=== PATIENT | male | born 1940 | race American Indian/Alaskan Native ===

== ENCOUNTER 2019-08-23 09:45 | Observation (INO) | payer MEDICARE, OTHER ==
[~2019-08-23] VITALS: Ht 170.2 cm; Wt 73.5 kg
--- OUTSIDE RECORDS SUMMARY | ~2019-08-23 | XMS | Clinical Summary ---
Demographics + + + | Address | [address] | | | [place] [address] | + + + | Home Phone [...] + | Author | [facility] | | | and [place] | + + + | Organization | [facility] | | | and [...] Team Providers + +------+ + | Care Promotions Executive Producer Name | Role | Phone | + [...] | 08/0 | | Activ | | (PRINIVIL, ZESTRIL) | daily. | | | 8/20 | | e | | 10 mg tablet | | | | 19 | | | + + + +---------+------+------+-------+ | aspirin 325 mg | Take 325 mg by mouth | | 0 | 08/0 | | Activ | | tablet | daily with | | | 8/20 | | e | | | breakfast. | | | 19 | | | + + + +---------+------+------+-------+ | atorvaSTATin | Take 10 mg by mouth | | 0 | 08/0 | | Activ | | (LIPITOR) 10 mg | nightly. | | | 05/23 | | e | | tablet | | | | 19 | | | + + + +---------+------+------+-------+ | loperamide | Take 2 mg by mouth 4 | | 0 | | | Activ | | (IMODIUM) 2 mg | times daily as | | | | | e | | capsule | needed for Diarrhea. | | | | | | | | Take two capsules | | | | | | | | by mouth at the | | | | | | | | onset, then take one | | | | | | | | capsule as | | | | | | | | directed. | | | | | | + + + +---------+------+------+-------+ Active Problems + + + | Problem | Noted Date | + + + | Chest pressure | 07/10/2019 | + + + | Tobacco abuse | | + + + | Hypertension | | + + + | Hyperlipidemia | | + + + Encounters +--------+---------+ + + + | Date | Type | Specialty | Care Team | Description | +--------+---------+ + + + | 07/10/ | Office | Cardiology | JenniferalessandraNaina garcia | Essential | | 2019 | Visit | | GRIFFIN Strickland | hypertension | | | | | | (Primary Dx); Chest | | | | | | pressure; Mixed | | | | | | hyperlipidemia; | | | | | | Tobacco abuse | +--------+---------+ + + + from Last 3 Months Family History + + +------+ + | Medical History | Relation | Name | Comments | + + +------+ + | Alzheimer's disease | Brother | | | + + +------+ + | Cancer | Brother | | | + + +------+ + | Seizures [...] + +------+ + + Social History + +-------+ +--------+------+ [...] to Quit: No; Counseling Given: Yes | + + + + +---------+ + [...] + + + | Blood Pressure | 112/56 | 07/10/2019 1:56 PM | | | | | PDT | | + + + + + | Pulse | 72 | 07/10/2019 1:56 PM | | | | | PDT | | + + + + + | Temperature | - | - | | + + + + + | Respiratory Rate | - | - | | + + + + + | Oxygen Saturation | 98% | 07/10/2019 1:56 PM | | | | | PDT | | + + + + + | Inhaled Oxygen | - | - | | | Concentration | | | | + + + + + | Weight | 83.5 kg (184 lb 1.6 | 07/10/2019 1:56 PM | | | | oz) | PDT | | + + + + + | Height | 170.2 cm (5' 7") | 07/10/2019 1:56 PM | | | | | PDT | | + + + + + | Body Mass Index | 28.83 | 07/10/2019 1:56 PM | | | | | PDT | | + + + + + Plan of Treatment + + + + + | Health Maintenance | Due Date | Last Done | Comments | + + + + + | Vaccine: | | | | | Dtap/Tdap/Td (1 - | 9 | | | | Tdap) | | [...] | | + + + + + Results Not on filefrom Last 3 Months Insurance + +--------+ +--------+ +---------+--------+ | Payer | Benefi | Subscriber | Effect | Phone | Address | Type | | | t Plan | ID | bree | | | | | | / | | Dates | | | | | | Group | | | | | | + +--------+ +--------+ +---------+--------+ | MEDICARE | MEDICA | [id number] | 04/03/20 | [phone] | | Medica | | | RE | | 14-Pre | 5 | | re | | | PART A | | sent | | | | | | AND B | | | | | | + +--------+ +--------+ +---------+--------+ | [employer] | IHS | | Effect | | | Indemn | | SERVICE | YELLOW | | bree | | | ity | | | [place]WK | | for | | | | | | | | all | | | | | | | | dates | | | | + +--------+ +--------+ +---------+--------+ | [employer] | IHS | [id number] | 10/04/19 | | | Indemn | | SERVICE | YELLOW | | 19-Pre | | | ity | | | HAWK | | sent | | | | + +--------+ +--------+ +---------+--------+ | MEDICARE | MEDICA | [id number] | 04/03/20 | [phone] | | Medica [...] | + +--------+ +--------+ + + | Kris Delgado | Person | Self | [birth year] | | [address] | | | al/Fam | | 1941 | [phone] | [place] [address] | | | [place] | | | 9 (Home) | | + +--------+ +--------+ + + | Kris Delgado | Person | Self | [birth year] | | [address] | | | al/Fam | | 1941 | [phone] | [place] [address] | | | [place] | | | 9 (Home) | | + +--------+ +--------+ + + Advance Directives + + + + + | Type | Date Recorded | Patient | Explanation | | | | Pickling Operator | | + + + + + | Power of | | | | | Malt House Kiln Operator | | | | + + + + + | Advance | | | | | Directive | | | | + + + + +
--- OUTSIDE RECORDS SUMMARY | ~2019-08-23 | XMS | Encounter Summary ---
Demographics + + + | Address | [address] | | | [place] [address] | + + + | Home Phone | | + + + | Preferred Language | Unknown | + + + | Marital Status | | + + + | Nondenominational Affiliation | Unknown | + + + | Race | Unknown | + + + | Ethnic Group | Unknown | + + + Author + + + | Author | [facility] | | | and [place] | + + + | Organization | [facility] | | | [...] Providers + +------+ + | Care Business Office Associate Name | Role | Phone | + [...] | Transaction, | | | | | [address] | Provider Unknown | | | | | [place] | [phone] | | | | | [phone] | (Fax) | | | | | [phone] | | | +--------+ + + + [...]
--- OUTSIDE RECORDS SUMMARY | ~2019-08-23 | XMS | Encounter Summary ---
Demographics + + + | Address | [address] | | | [place] [address] | + + + | Home Phone | | + + + | Preferred Language | Unknown | + + + | Marital Status | | + + + | Zoroastrianism Affiliation | Unknown | + + + | Race | Unknown | + + + | Ethnic Group | Unknown | + + + Author + + + | Author | [facility] | | | and [place] | + + + | Organization | [facility] | | | and [...] Team Providers + +------+ + | Care Mainframe Consultant Name | Role | Phone | [...] [place] | | | | | | [address] | | | | | | [phone] | | | +--------+ + + + [...] 0.67 m/s MV | | | Dec Mcclain: 1.81 m/s2 MV DecT: 317.65 ms MV E Emanuel: 0.57 m/s | | | MV E/A Ratio: 0.85 E/E' Sept: 11.69 E' Lat: 0.08 m/s E' | | | Sept: 0.04 m/s RAP: 5 mmHg RV S': 0.12 m/s RVSP: 25.91 | | | mmHg TR maxP.91 mmHg TR Vmax: 2.28 m/s Mixer Wet Pour: | | | Authenticated by: Cici Abraham [...] mlLAESV Index (A-L): 24.25 ml/m2LAAs A2C: 14.49 [id number] A-L A2C: 33.91 | | mlLAESV MOD A2C: 32.12 mlLALs A2C: 5.25 cmLAAs A4C: 19.79 [id number] A-L A4C: | | 58.12 mlLAESV MOD A4C: 57.48 mlLALs A4C: 5.72 cmRAAs: 18.17 [id number] A-L: 49.96 | | mlRAESV MOD: 49.15 mlRALs: 5.60 cmTAPSE: 2.19 cmAV Env.Ti: 293.90 msAV maxPG: | | 4.91 mmHgAV meanP.41 mmHgAV Vmax: 1.10 m/Milton Vmean: 0.72 m/Milton VTI: 21.23 | | cmAVA Vmax: 3.17 cm2AVA (VTI): 3.89 [id number] Vmax: 0.00 cm2/m2AVAI (VTI): 0.00 | | cm2/m2LVOT Env.Ti: 360.44 msLVOT maxP.14 mmHgLVOT meanP.50 mmHgLVSI Dopp: | | 43.29 ml/m2LVSV Dopp: 82.69 mlLVOT Vmax: 0.88 m/sLVOT Vmean: 0.57 m/sLVOT VTI: | | 20.85 cmMV A Emanuel: 0.67 m/sMV Dec Mcclain: 1.81 m/s2MV DecT: 317.65 msMV E Emanuel: | | 0.57 m/sMV E/A Ratio: 0.85E/E' Sept: 11.69E' Lat: 0.08 m/sE' Sept: 0.04 m/sRAP: | | 5 mmHgRV S': 0.12 m/sRVSP: 25.91 mmHgTR maxP.91 mmHgTR Vmax: 2.28 m/s | | Mixer Wet Pour:Authenticated by: Cici Robles Date/Time: 02-21-2019 19:5:14 | [...] A Emanuel: 0.67 m/s | |MV Dec Mcclain: 1.81 m/s2 | |MV DecT: 317.65 ms | |MV E Emanuel: 0.57 m/s | |MV E/A Ratio: 0.85 | |E/E' Sept: 11.69 | |E' Lat: 0.08 m/s | |E' Sept: 0.04 m/s | |RAP: 5 mmHg | |RV S': 0.12 m/s | |RVSP: 25.91 mmHg | |TR maxP.91 mmHg | |TR Vmax: 2.28 m/s | | | |Mixer Wet Pour: | |Authenticated by: Cici Abraham | |Report [...]
--- OUTSIDE RECORDS SUMMARY | ~2019-08-23 | XMS | Clinical Summary ---
Demographics + + + | Address | [address] | | | [place] [address] | + + + | Home Phone | | + + + | Preferred Language | Unknown | + + + | Marital Status | Unknown | + + + | Mormon Affiliation | Unknown | + + + | Race | Unknown | + + + | Ethnic Group | Unknown | + + + Author + + + | Author | [facility] [employer] (Historical as of | | | 05-20-19) | + + + | Organization | [facility] [employer] (Historical as of | | | 05-20-19) [...] Team Providers + +------+ + | Care Medical Claims Manager Name | Role | Phone | [...] | | + +--------+ +------+-------+ + | /[facility] | YELLOW | [id number] | | | | | PLANS | [place]WK | | | | | + +--------+ +------+-------+ + | MEDICARE | MEDICA | [id number] | | | [address] | | | RE | | | | [place] [address] | | | IP-OP | | | [...] | Self | [birth year] | Home: | [address] | | | al/Fam | | 1941 | [phone] | [place] [address] | | | [place] | | [phone] | | + +--------+ +--------+ + +
--- OUTSIDE RECORDS SUMMARY | ~2019-08-23 | XMS | Encounter Summary ---
Demographics + + + | Address | [address] | | | [place] [address] | + + + | Home Phone | | + + + | Preferred Language | Unknown | + + + | Marital Status | | + + + | Sikh Affiliation | Unknown | + + + | Race | Unknown | + + + | Ethnic Group | Unknown | + + + Author + + + | Author | [facility] | | | and [place] | + + + | Organization | [facility] | | [...] Team Providers + +------+ + | Care Appeals Referee Name | Role | Phone | + [...] | | | | DARREN MCKEON | [phone] | | | | | [phone] | (Fax) | | | | | [phone] | | | +--------+ + + + [...]
--- OUTSIDE RECORDS SUMMARY | ~2019-08-23 | XMS | Clinical Summary ---
Demographics + + + | Address | [address] | | | [place] [address] | + + + | Home Phone | | + + + | Preferred Language | Unknown | + + + | Marital Status | | + + + | Yazdanism Affiliation | Unknown | + + + | Race | Unknown | + + + | Ethnic Group | Unknown | + + + Author + + + | Author | [facility] | | | and [place] | + + + | Organization | [facility] | [...] Team Providers + +------+ + | Care Manager Group Home Name | Role | Phone | + [...] +--------+ +---------+--------+ | MEDICARE | MEDICA | [id number] | 04/03/20 | [phone] | | Medica | | | RE | | 14-Pre | 5 | | re | | | PART A | | sent | | | | | | AND B | | | | | | + +--------+ +--------+ +---------+--------+ | [employer] | IHS | | Effect | | | Indemn | | SERVICE | YELLOW | | bree | | | ity | | | [place]WK | | for | | | | | | | | all | | | | | | | | dates | | | | + +--------+ +--------+ +---------+--------+ | [employer] | IHS | [id number] | 10/04/19 | | | Indemn | | SERVICE | YELLOW | | 19-Pre | | | ity | | | HAWK | | sent | | | | + +--------+ +--------+ +---------+--------+ | MEDICARE | MEDICA | [id number] | 04/03/20 | [phone] | | Medica [...] Person | Self | [birth year] | | [address] | | | al/Fam | | 1941 | [phone] | [place] [address] | | | [place] | | | 9 (Home) | | + +--------+ +--------+ + + | Kris Delgado | Person | Self | [birth year] | | [address] | | | al/Fam | | 1941 | [phone] | [place] [address] | | | [place] | | | 9 (Home) | | + +--------+ +--------+ + + Advance Directives + + + + + | Type | Date Recorded | Patient | Explanation | | | | Drawer In Jacquard Loom | | + + + + + | Power of | | | | | Ceramic Worker | | | | + + + + + | Advance | | | | | Directive | | | | + + + + +
--- OUTSIDE RECORDS SUMMARY | ~2019-08-23 | XMS | Encounter Summary ---
Demographics + + + | Address | [address] | | | [place] [address] | + + + | Home Phone | | + + + | Preferred Language | Unknown | + + + | Marital Status | | + + + | Hinduism Affiliation | Unknown | + + + | Race | Unknown | + + + | Ethnic Group | Unknown | + + + Author + + + | Author | [facility] | | | and [place] | + + + | Organization | [facility] | | | [...] Team Providers + +------+ + | Care Dance Costume Designer Name | Role | Phone | [...] | / Cardiology | done sah | [address] | CONSULTING APPLICATION ENGINEER [address] | | | | | Procedures | CONF[address]ERATED | LISETH COLV[address] | | | | | OFFICE VISIT | WAY | [address] | | | | | REGULAR | [place], | [place], [place] | | | | | | [place] [address] | [address] Phone: | | | | | | Phone: | [phone] | | | | | | [phone] | Fax: | | | | | | Fax: | [phone] | | | | | | [phone] | | +--------+--------+ + + + + Encounter Details +--------+---------+ + + + | Date | Type | Department | Care Team | Description | +--------+---------+ + + + | 07/10/ | Office | [facility] | Naina Judd | Essential | | 2019 | Visit | CARDIOLOGY [place] | GRIFFIN Strickland [address] | hypertension | | | | [address] | [address] | (Primary Dx); Chest | | | | [address] | [place] [address] | pressure; Mixed | | | | [place], [place] | [phone] | hyperlipidemia; | | | | [address] | | Tobacco abuse | | | | [phone] | | | +--------+---------+ + + + [...] 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 He previously had a normal echo performed at [facility] Dr. Barahona ordered him a [...] use. Exercises with and tolerates. Lives in [place] [facility] Medications Prior to Visit Medication Sig [...] with PAC's. low voltage QRS 71 bpm, ID 122 ms, Q RS 74 ms, QTC 417 ms, tracing personally reviewed by me EK05/11/2019:Normal sinus rhythm, rate 71, ID 118 ms, QRS 68 ms, QTC 399, borderline carolynn rt ID interval, LAE, cannot exclude old inferior IN, age undetermined, low voltage QRS , tr [...] to quit smoking, drink no more t agrcia 2 alcoholic drinks at one time , and to work on keeping blood pressure, and lipids well controlled, and to stay current on flu and pneumonia vaccines, as also increase risk of IN I made no changes to cardiac medications [...] surgical history. Problem list. Erika WALKER [facility] Cardiology 07/10/2019 docume nted in this encounter [...]
--- OUTSIDE RECORDS SUMMARY | ~2019-08-23 | XMS | Encounter Summary ---
Demographics + + + | Address | [address] | | | [place] [address] | + + + | Home Phone [...] Team Providers + +------+ + | Care Innersole Maker Name | Role | Phone | [...] | / Cardiology | done sah | [address] | HEALTH OFFICER [address] | | | | | Procedures | CONFEDERATED | LISETH COLVIN | | | | | OFFICE VISIT | WAY | [address] | | | | | REGULAR | [place], | [place], [place] | | | | | | [place] [address] | [address] Phone: | | | | | | Phone: | [phone] | | | | | | [phone] | Fax: | | | | | | Fax: | [phone] | | | | | | [phone] | | +--------+--------+ + + + + Encounter Details +--------+---------+ + + + | Date | Type | Department | Care Team | Description | +--------+---------+ + + + | 07/10/ | Office | [facility] | Naina Judd | Essential | | 2019 | Visit | CARDIOLOGY [place] | [address]FF[address] | hypertension | | | | [address] | [address] | (Primary Dx); Chest | | | | [address] | [place] [address] | pressure; Mixed | | | | [place], [place] | [phone] | hyperlipidemia; | | | | [address] | | Tobacco abuse | | | | [phone] | | | +--------+---------+ + + + [...] and his EKG showing an old inferior HI. He previously had a normal echo performed at [facility] Dr. Barahona ordered him a stress [...] use. Exercises with and tolerates. Lives in [place] [facility] Medications Prior to Visit Medication Sig [...] with PAC's. low voltage QRS 71 bpm, OH 122 ms, Q RS 74 ms, QTC 417 ms, tracing personally reviewed by me EK05/11/2019:Normal sinus rhythm, rate 71, OH 118 ms, QRS 68 ms, QTC 399, borderline carolynn rt OH interval, LAE, cannot exclude old inferior HI, age undetermined, low voltage QRS , tr [...] pneumonia vaccines, as also increase risk of HI I made no changes to cardiac medications [...] past surgical history. Problem list. Erika WALKER [facility] Cardiology 07/10/2019 docume nted in this encounter [...]
--- OUTSIDE RECORDS SUMMARY | ~2019-08-23 | XMS | Encounter Summary ---
Demographics + + + | Address | [address] | | | [place] [address] | + + + | Home Phone | | + + + | Preferred Language | Unknown | + + + | Marital Status | | + + + | Protestant Affiliation | Unknown | + + + | Race | Unknown | + + + | Ethnic Group | Unknown | + + + Author + + + | Author | [facility] | | | and [place] | + + + | Organization | [facility] | | [...] Team Providers + +------+ + | Care Abe Teacher Name | Role | Phone | [...] | | | | DARR[place] MCKE[place] | [phone] | | | | | [address] | (Fax) | | | | | [phone] | | | +--------+ + + + [...]
--- OUTSIDE RECORDS SUMMARY | ~2019-08-23 | XMS | Clinical Summary ---
Demographics + + + | Address | [address] | | | [place] [address] | + + + | Home Phone | | + + + | Preferred Language | Unknown | + + + | Marital Status | Unknown | + + + | Nondenominational Affiliation | Unknown | + + + | Race | Unknown | + + + | Ethnic Group | Unknown | + + + Author + + + | Author | [facility] (Historical as of | | | 05-20-19) | + + + | Organization | [facility] (Historical as of | | | 05-20-19) [...] Team Providers + +------+ + | Care Transportation Escort Name | Role | Phone | + [...] | | + +--------+ +------+-------+ + | /[facility] | YELLOW | [id number] | | | | | PLANS | [place] | | | | | + +--------+ +------+-------+ + | MEDICARE | MEDICA | [id number] | | | [address] | | | RE | | | | [place] [address] | | | IP-OP | | | [...] | Self | [birth year] | Home: | [address] | | | al/Fam | | 1941 | [phone] | [place] [address] | | | [place] | | | [phone] | | + +--------+ +--------+ + +
--- OUTSIDE RECORDS SUMMARY | ~2019-08-23 | XMS | Encounter Summary ---
Demographics + + + | Address | [address] | | | [place] [address] | + + + | Home Phone [...] Team Providers + +------+ + | Care Ventilated Rib Fitter Name | Role | Phone | + [...] [place] | | | | | | [address] | | | | | | [phone] | | | +--------+ + + + [...] 0.67 m/s MV | | | Dec Roseau: 1.81 m/s2 MV DecT: 317.65 ms MV E Emanuel: 0.57 m/s | | | MV E/A Ratio: 0.85 E/E' Sept: 11.69 E' Lat: 0.08 m/s E' | | | Sept: 0.04 m/s RAP: 5 mmHg RV S': 0.12 m/s RVSP: 25.91 | | | mmHg TR maxP.91 mmHg TR Vmax: 2.28 m/s Lock Setter: | | | Authenticated by: Ccii Abraham Report Date/Time: 02-21-2019 19:5:14 | | [...] mlLAESV Index (A-L): 24.25 ml/m2LAAs A2C: 14.49 [id number] A-L A2C: 33.91 | | mlLAESV MOD A2C: 32.12 mlLALs A2C: 5.25 cmLAAs A4C: 19.79 [id number] A-L A4C: | | 58.12 mlLAESV MOD A4C: 57.48 mlLALs A4C: 5.72 cmRAAs: 18.17 [id number] A-L: 49.96 | | mlRAESV MOD: 49.15 mlRALs: 5.60 cmTAPSE: 2.19 cmAV Env.Ti: 293.90 msAV maxPG: | | 4.91 mmHgAV meanP.41 mmHgAV Vmax: 1.10 m/Milton Vmean: 0.72 m/Milton VTI: 21.23 | | cmAVA Vmax: 3.17 cm2AVA (VTI): 3.89 [id number] Vmax: 0.00 cm2/m2AVAI (VTI): 0.00 | | cm2/m2LVOT Env.Ti: 360.44 msLVOT maxP.14 mmHgLVOT meanP.50 mmHgLVSI Dopp: | | 43.29 ml/m2LVSV Dopp: 82.69 mlLVOT Vmax: 0.88 m/sLVOT Vmean: 0.57 m/sLVOT VTI: | | 20.85 cmMV A Emanuel: 0.67 m/sMV Dec Roseau: 1.81 m/s2MV DecT: 317.65 msMV E Emaneul: | | 0.57 m/sMV E/A Ratio: 0.85E/E' Sept: 11.69E' Lat: 0.08 m/sE' Sept: 0.04 m/sRAP: | | 5 mmHgRV S': 0.12 m/sRVSP: 25.91 mmHgTR maxP.91 mmHgTR Vmax: 2.28 m/s | | Lock Setter:Authenticated by: Cici Robles Date/Time: 02-21-2019 19:5:14 | [...] A Emanuel: 0.67 m/s | |MV Dec [place]: 1.81 m/s2 | |MV DecT: 317.65 ms | |MV E Emanuel: 0.57 m/s | |MV E/A Ratio: 0.85 | |E/E' Sept: 11.69 | |E' Lat: 0.08 m/s | |E' Sept: 0.04 m/s | |RAP: 5 mmHg | |RV S': 0.12 m/s | |RVSP: 25.91 mmHg | |TR maxP.91 mmHg | |TR Vmax: 2.28 m/s | | | |Lock Setter: | |Authenticated by: Cici Abraham | |Report [...]
--- OUTSIDE RECORDS SUMMARY | ~2019-08-23 | XMS | Clinical Summary ---
Demographics + + + | Address | [address] | | | [place] [address] | + + + | Home Phone [...] + + | Author | [facility] (Historical as of | | | 05-20-19) | + + + | Organization | [facility] (Historical as of | | | 05-20-19) [...] Team Providers + +------+ + | Care Jboss Architect Name | Role | Phone | [...] | | + +--------+ +------+-------+ + | /[facility] | YELLOW | [id number] | | | | | PLANS | [place] | | | | | + +--------+ +------+-------+ + | MEDICARE | MEDICA | [id number] | | | [address] | | | RE | | | | [place] [phone] | | | IP-OP | | | [...] | Self [birth year] | Home: | [address] | | | al/Fam | | 1941 | [phone] [place] [address] | | | [place] | | | [phone] | | + +--------+ +--------+ + +
--- OUTSIDE RECORDS SUMMARY | ~2019-08-23 | XMS | Encounter Summary ---
Demographics + + + | Address | [address] | | | [place] [address] | + + + | Home Phone | | + + + | Preferred Language | Unknown | + + + | Marital Status | | + + + | Advent Affiliation | Unknown | + + + [...] Team Providers + +------+ + | Care Cuff Presser Name | Role | Phone | + [...] [place] | | | | | | [address] | | | | | | [phone] | | | +--------+ + + + [...] 0.67 m/s MV | | | Dec Mccone: 1.81 m/s2 MV DecT: 317.65 ms MV E Emanuel: 0.57 m/s | | | MV E/A Ratio: 0.85 E/E' Sept: 11.69 E' Lat: 0.08 m/s E' | | | Sept: 0.04 m/s RAP: 5 mmHg RV S': 0.12 m/s RVSP: 25.91 | | | mmHg TR maxP.91 mmHg TR Vmax: 2.28 m/s Steam Turbine Assembler: | | | Authenticated by: Cici Abraham [...] mlLAESV Index (A-L): 24.25 ml/m2LAAs A2C: 14.49 [id number] A-L A2C: 33.91 | | mlLAESV MOD A2C: 32.12 mlLALs A2C: 5.25 cmLAAs A4C: 19.79 [id number] A-L A4C: | | 58.12 mlLAESV MOD A4C: 57.48 mlLALs A4C: 5.72 cmRAAs: 18.17 [id number] A-L: 49.96 | | mlRAESV MOD: 49.15 mlRALs: 5.60 cmTAPSE: 2.19 cmAV Env.Ti: 293.90 msAV maxPG: | | 4.91 mmHgAV meanP.41 mmHgAV Vmax: 1.10 m/Milton Vmean: 0.72 m/Milton VTI: 21.23 | | cmAVA Vmax: 3.17 cm2AVA (VTI): 3.89 [id number] Vmax: 0.00 cm2/m2AVAI (VTI): 0.00 | | cm2/m2LVOT Env.Ti: 360.44 msLVOT maxP.14 mmHgLVOT meanP.50 mmHgLVSI Dopp: | | 43.29 ml/m2LVSV Dopp: 82.69 mlLVOT Vmax: 0.88 m/sLVOT Vmean: 0.57 m/sLVOT VTI: | | 20.85 cmMV A Emanuel: 0.67 m/sMV Dec Mccone: 1.81 m/s2MV DecT: 317.65 msMV E Emanuel: | | 0.57 m/sMV E/A Ratio: 0.85E/E' Sept: 11.69E' Lat: 0.08 m/sE' Sept: 0.04 m/sRAP: | | 5 mmHgRV S': 0.12 m/sRVSP: 25.91 mmHgTR maxP.91 mmHgTR Vmax: 2.28 m/s | | Steam Turbine Assembler:Authenticated by: Cici Robles Date/Time: 02-21-2019 19:5:14 | [...] A Emanuel: 0.67 m/s | |MV Dec Mccone: 1.81 m/s2 | |MV DecT: 317.65 ms | |MV E Emanuel: 0.57 m/s | |MV E/A Ratio: 0.85 | |E/E' Sept: 11.69 | |E' Lat: 0.08 m/s | |E' Sept: 0.04 m/s | |RAP: 5 mmHg | |RV S': 0.12 m/s | |RVSP: 25.91 mmHg | |TR maxP.91 mmHg | |TR Vmax: 2.28 m/s | | | |Steam Turbine Assembler: | |Authenticated by: Cici Abraham | |Report [...]
--- OUTSIDE RECORDS SUMMARY | ~2019-08-23 | XMS | Clinical Summary ---
Demographics + + + | Address | [address] | | | [place] [address] | + + + | Home Phone [...] Team Providers + +------+ + | Care Associate Counsel Name | Role | Phone | + [...] +--------+ +---------+--------+ | MEDICARE | MEDICA | [id number] | 04/03/20 | [phone] | | Medica | | | RE | | 14-Pre | 5 | | re | | | PART A | | sent | | | | | | AND B | | | | | | + +--------+ +--------+ +---------+--------+ | [facility] | IHS | | Effect | | | Indemn | | SERVICE | YELLOW | | bree | | | ity | | | HAWK | | for | | | | | | | | all | | | | | | | | dates | | | | + +--------+ +--------+ +---------+--------+ | [facility] | IHS | [id number] | 10/04/19 | | | Indemn | | SERVICE | YELLOW | | 19-Pre | | | ity | | | HAWK | | sent | | | | + +--------+ +--------+ +---------+--------+ | MEDICARE | MEDICA | [id number] | 04/03/20 | [phone] | | Medica [...] Person | Self | [birth year] | | [address] | | | al/Fam | | 1941 | [phone] | [place] [address] | | | tunde | | | 9 (Home) | | + +--------+ +--------+ + + | Kris Delgado | Person | Self | [birth year] | | [address] | | | al/Fam | | 1941 | [phone] | [place] [address] | | | tunde | | | 9 (Home) | | + +--------+ +--------+ + + Advance Directives + + + + + | Type | Date Recorded | Patient | Explanation | | | | Service Dispatcher | | + + + + + | Power of | | | | | [employer] | | | | + + + + + | Advance | | | | | Directive | | | | + + + + +
--- OUTSIDE RECORDS SUMMARY | ~2019-08-23 | XMS | Encounter Summary ---
Demographics + + + | Address | [address] | | | [place] [address] | + + + | Home Phone | | + + + | Preferred Language | Unknown | + + + | Marital Status | | + + + | Taoism Affiliation | Unknown | + + + | Race | Unknown | + + + | Ethnic Group | Unknown | + + + Author + + + | Author | [facility] | | | and [place] | + + + | Organization | [facility] | | | [...] Team Providers + +------+ + | Care Company Secretary Name | Role | Phone | + [...] | / Cardiology | done sah | [address] | PLUCK SEPARATOR [address] | | | | | Procedures | [facility] | LISETH [address]VIN | | | | | OFFICE VISIT | WAY | [address] | | | | | REGULAR | [place], | [place], [place] | | | | | | [place] [address] | [address] Phone: | | | | | | Phone: | [phone] | | | | | | [phone] | Fax: | | | | | | Fax: | [phone] | | | | | | [phone] | | +--------+--------+ + + + + Encounter Details +--------+---------+ + + + | Date | Type | Department | Care Team | Description | +--------+---------+ + + + | 07/10/ | Office | [facility] | Naina Judd | Essential | | 2019 | Visit | CARDIOLOGY [place] | [address] | hypertension | | | | [address] | [address] | (Primary Dx); Chest | | | | [address] | [place] [address] | pressure; Mixed | | | | [place], [place] | [phone] | hyperlipidemia; | | | | [address] | | Tobacco abuse | | | | [phone] | | | +--------+---------+ + + + [...] and 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 He previously had a normal echo performed at [facility] Dr. Barahona ordered him a stress test. [...] use. Exercises with and tolerates. Lives in [facility] Medications Prior to Visit Medication Sig [...] with PAC's. low voltage QRS 71 bpm, UT 122 ms, Q RS 74 ms, QTC 417 ms, tracing personally reviewed by me EK05/11/2019:Normal sinus rhythm, rate 71, UT 118 ms, QRS 68 ms, QTC 399, borderline carolynn rt UT interval, LAE, cannot exclude old inferior CA, age undetermined, low voltage QRS , tr [...] pneumonia vaccines, as also increase risk of CA I made no changes to cardiac medications [...] surgical history. Problem list. Erika WALKER [facility] Cardiology 07/10/2019 docume nted in this [...]
[~2019-08-23 09:45] MED LIST: ASPIRIN EC325 MG PO; CEPHALEXIN500 MG PO; LIPITOR10 MG PO; LISINOPRIL10 MG PO; NICOTINE LOZENGE4 MG BUCCAL; OMEPRAZOLE20 MG PO; UKNOWN BP MED; [UNRECOGNIZED DRUG - REMARK]
[2019-08-23] MEDS ORDERED: LOPERAMIDE2 MG PO (10:18)
--- NOTE | 2019-08-23 14:40 | NUR ---
REPORT RECEIVED FROM JAIME STRINGER. PT TRANSFERED TO MED/SURG. PT TRANSFERES SELF TO MED/SURG BED. GENERALIZED WEAKNESS NOTED. IRREGULAR HR NOTED. RT TO BEDSIDE FOR EKG. PT REPORTS PAIN IN ED WAS 9/10 BUT IS NOT "GONE." LUNG SOUNDS CLEAR. 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 BOWEL TONES HEARD. FAMILY AT BEDSIDE. MEDICATIONS GIVEN. NO ADDITIONAL REQUESTS OR COMPLAINTS AT THIS TIME. PT AND FAMILY DEMONSTRATE USE OF CALL LIGHT.
--- NOTE | 2019-08-23 17:35 | NUR ---
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 ABDOMEN/PELVIS CT DONE THIS SHIFT. BOWEL PREP GIVEN FOR PLANNED COLONOSCOPY. PRN PAIN MEDICATIONS GIVEN IN ER WITH GOOD RESULTS. 1PA UP TO RESTROOM. CLEAR LIQUID DIET, NPO AT MIDNIGHT. FAMILY AT BEDSIDE. PT USES CALL LIGHT INCONSISTANTLY.
--- NOTE | 2019-08-23 17:51 | EKG ---
[facility] [address] [place], [place] [address] Signed Sinus rhythm with marked sinus arrhythmia Low voltage QRS Inferior infarct , age undetermined Abnormal ECG No previous ECGs available Confirmed by SHAKILA VERMA DO ([id number]) on 08/23/2019 5:51:28 PM Electronically Signed By: SHAKILA VERMA DO 08/23/19 1751 PATIENT NAME: ARLENE ROJAS Electrocardiogram DATE OF : 38 PHYSICIAN: SHAKILA VERMA DO REPORT #: [id number] REPORT IS CONFIDENTIAL AND NOT TO BE RELEASED WITHOUT AUTHORIZATION
--- NOTE | 2019-08-23 18:00 | NUR ---
THIS RN TO ROOM TO CHECK ON PT. PT ENCORUAGED TO DRINK BOWEL PREP. PT DENIES PAIN AND NAUSEA AT THIS TIME. WATER PROVIDED FOR FAMILY. NO ADDITIONAL REQUESTS OR COMPLAINTS AT THIS TIME. CALL LIGHT WITHIN REACH.
--- NOTE | 2019-08-23 18:49 | NUR ---
THIS RN TO ROOM TO CHECK ON PT. PSYCHOLOGY CLINICIAN AT BEDSIDE FOR VITAL SIGNS. PT DENIES NAUSEA AND ABDOMINAL PAIN. PT REPORTS "SORENESS IN MY TAILBONE BECAUSE OF THE BED." PT REPOSITIONED TO LEFT SIDE. PILLOW PLACED TO SUPPORT PT. PT DENIES NEED FOR PAIN MEDICATION. PT ENCOURAGED TO DRINK BOWEL PREP. NO ADDITIONAL REQUESTS OR COMPLAINTS AT THIS TIME. FAMILY AT BEDSIDE. CALL LIGHT WITHIN REACH.
--- NOTE | 2019-08-23 19:10 | NUR ---
ROUNDED CHARGE. PATIENT IS RESTING IN BED. FAMILY PRESENT IN THE ROOM. PATIENT AND FAMILY DENY ANY COMMENTS, QUESTIONS OR CONCERNS. NO NEEDS NOTED. CALL LIGHT IN REACH.
--- NOTE | 2019-08-23 19:20 | NUR ---
SHIFT REPORT RECEIVED FROM DAYSHIFT JAIME PIKE AT BEDSIDE. PT WAKE AND RESTING IN BED, VERBALIZES NEED TO HAVE BM. PT UP SBA AND IN BATHROOM. SHAHZAD IN ROOM WITH PT.
--- NOTE | 2019-08-23 19:25 | NUR ---
PT FAMILY TO NURSES STATION. PT REQUESTS PAIN MEDICAITON FOR 610 ABDOMINAL PAIN. SEE MAR FOR MEDICATION GIVEN. PT ASSISTED UP TO RESTROOM. REPORT GIVEN TO JAIME JACKSON.
--- NOTE | 2019-08-23 21:11 | NUR ---
ASSESSMENT COMPLETE, VSS. PT RESTING FLAT IN BED, REPORTS 3/10 AND DESCRIBES "SOF PAIN, IT COMES AND GOES". PT A/OX4, DENIES NEEDS. BOWEL TONES ACTIVE, MIRALAX AT BEDSIDE, PT INTERMITTENTLY DRINKING. NO NAUSEA AT THIS TIME. IV FLUIDS INFUSING AT 100MLS/HR, IV SITE WNL, FLUSHES EASILY. NO ADDITIONAL NEEDS, CALL LIGHT IN REACH.
--- NOTE | 2019-08-23 23:39 | NUR ---
PT REPORTING 9/10 PAIN, DISCUSSED WITH FILLER SHREDDING MACHINE LOADER REGARDING PAIN MEDS. PT IS NPO AT 0000, ONE PRN ORAL PAIN PILL GIVEN. PT DENIES NAUSEA, WILL CONTINUE TO MONITOR PAIN. NO FURTHER NEEDS, TAYO BARBER IN ROOM WITH PT.
--- NOTE | 2019-08-24 00:05 | NUR ---
PT RESTING IN BED, EYES CLOSED. MOANING NOTED, PT GRIPPING BED RAILS. PRN DILAUDID ADMINSITERED. PT ALSO NPO AT THIS TIME FOR SCHEDULED AM SCOPE. NO FURTHER NEEDS, CALL LIGHT IN REACH.
--- NOTE | 2019-08-24 01:04 | NUR ---
PT RESTING IN BED, EYES CLOSED. RESPIRATIONS EVEN AND UNLABORED, NO DISTRESS NOTED. CALL LIGHT IN REACH.
--- NOTE | 2019-08-24 03:41 | NUR ---
PT UP SBA TO VOID, PT BACK IN BED. REPORTS INTERMITTENT PAIN RANGING FROM 3 TO 9/10, REPORTS PAIN IS "OKAY" AT THIS TIME AND RATES IT 3/10. NO NAUSEA AT THIS TIME, BOWEL TONES ACTIVE. IV FLUIDS INFUSING AT 100MLS/HR, SITE WNL. NO ADDITIONAL NEEDS, CALL LIGHT IN REACH.
--- NOTE | 2019-08-24 04:35 | NUR ---
UA COLLECTED AND SENT TO LAB.
--- NOTE | 2019-08-24 05:39 | NUR ---
PT A/OX4, [employer]. SBA WITH AMBULATION, USES CALL LIGHT APPROPERIATELY. VSS, SPB IN UPPER 90'S, PT ASYMPTOMATIC. MD AWARE. IV FLUIDS INFUSING AT 100MLS/HR, IV SITE WNL. PT NPO FOR SCHEDULED AM SCOPE, NO NAUSEA. BOWEL PREP COMPLETE.
--- NOTE | 2019-08-24 05:39 | CONS ---
[facility] [address], [place] [address] Signed DATE OF CONSULTATION: 08/23/2019 CHIEF COMPLAINT: Left upper quadrant and periumbilical abdominal pain with diarrhea and rectal bleeding. HISTORY OF PRESENT ILLNESS: Kris is a 78-year-old gentleman, who over the last 2-1/2 months has been having left upper quadrant and periumbilical crampy abdominal pain with diarrhea and rectal bleeding. He has been to his primary care provider several times. He came back H pylori positive and so that was treated with no improvement in his symptoms. He has taken other various symptomatic medications without improvement. He finally came to the local emergency room for evaluation. His abdominal exam is not particularly concerning nor is his vital signs. The CT scan of abdomen and pelvis, however, shows a very thickened distal sigmoid colon and rectum over a length of about 15 cm. The lumen is quite narrow, maybe 5 mm. There are multiple nodules in the omentum and mesentery as well as a nodule in his left lung and then a small amount of ascites. He has diverticulosis as well. I have been asked to admit him as a general surgeon on-call to expedite his colonoscopy and probable tissue biopsy. PAST MEDICAL HISTORY: Coronary artery disease, osteoarthritis of the lumbar spine, he is hard of hearing, hypertension, hyperlipidemia, bilateral ankle fractures, history of H pylori, recently treated. PAST SURGICAL HISTORY: No previous surgeries including colonoscopy. SOCIAL HISTORY: He likes to smoke a couple cigarettes a day. Apparently, he drank alcohol in the past but none recently. His primary care provider is Lizette Macias, nurse practitioner with the [facility]. He prefers the [facility]. He has a daughter. FAMILY HISTORY: No family history of colon cancer or polyps to his knowledge. REVIEW OF SYSTEMS: He had 10 systems reviewed. He said he seemed to be in his usual state of health until this started. ALLERGIES: Penicillin, zinc oxide, and Bactrim. Electronically Signed By: OLENA RAMON MD 08/24/19 0539 PATIENT NAME: KRIS ROJAS SR CONSULTATION DATE OF : 38 REPORT #: [id number] PHYSICIAN: OLENA RAMON MD PCP: LIZETTE MACIAS REPORT IS CONFIDENTIAL AND NOT TO BE RELEASED WITHOUT AUTHORIZATION [facility] [address] [place] [id number] Signed MEDICATIONS: Nicotine lozenges, omeprazole, aspirin, simvastatin, loperamide, and lisinopril. PHYSICAL EXAMINATION: VITAL SIGNS: Blood pressure is 125/65, heart rate 63, respiratory rate 16, temperature is 97.8. He is 5 feet 7 inches at 86 kg. GENERAL: Kris is a 78-year-old gentleman, lying supine in his ER bed. His two daughters are with him. He is a little tired because of his pain medication. He is very clearly hard of hearing. LUNGS: Generally clear to auscultation bilaterally. HEART: Regular rate and rhythm. ABDOMEN: Generally soft and flat. He points to the periumbilical area, has tenderness. With careful palpation, I cannot appreciate any specific masses. RECTAL: Exam is delayed at the time of endoscopy. LABORATORY DATA: His white blood cell count is 11.8, hemoglobin 14, neutrophils are 77, platelets 335. BUN 18, creatinine 0.8, glucose 105. Liver function tests are negative. Albumin 3.9. His CEA level is pending. RADIOGRAPHIC STUDIES: CT scan of abdomen and pelvis is reviewed, both the images and the report. He does have thickened distal sigmoid colon and rectum over about 15 cm. The lumen is small at about 5 mm. There are multiple nodules in the mesentery and the omentum. There is small amount of ascites in the abdomen and he probably has a lesion in the base of his left lung. He also has diverticulosis. 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 It appears that it is at least spread throughout the omentum and small bowel mesentery. We are going to admit him tonight for IV fluids, clear liquids, and some bowel prep if we can. He will do his colonoscopy tomorrow and see if we can get a tissue biopsy. If that fails, he might need a diagnostic laparoscopy with biopsies. I reviewed all this with Kris and his two daughters. We have discussed colonoscopy in detail along with its risks including, but not limited to gas, bloating, crampy abdominal pain, bleeding, perforation requiring surgery, and missed diagnosis. They have expressed understanding and agreed above plan. Olena Ramon MD Electronically Signed By: OLENA RAMON MD 08/24/19 0539 PATIENT NAME: KRIS ROJAS SR CONSULTATION DATE OF : 38 REPORT #: [id number] PHYSICIAN: OLENA RAMON MD PCP: LIZETTE MACIAS REPORT IS CONFIDENTIAL AND NOT TO BE RELEASED WITHOUT AUTHORIZATION [facility] [address], [place] [address] Signed ALB/MODL /[id number] cc: KATEY Royal MD Copies: OLENA RAMON MD ~ Electronically Signed By: OLENA RAMON MD 08/24/19 0539 PATIENT NAME: KRIS ROJAS Abbie CONSULTATION DATE OF : 38 REPORT #: [id number] PHYSICIAN: OLENA RAMON MD PCP: LIZETTE MACIAS REPORT IS CONFIDENTIAL AND NOT TO BE RELEASED WITHOUT AUTHORIZATION
--- NOTE | 2019-08-24 07:20 | NUR ---
BOWEL PREP COMPLETED AROUND 2229, PT NPO AT MIDNIGHT FOR AM SCOPE. VSS, SOFT SBP, DEVELOPMENT SCIENTIST AWARE. PT ASYMPTOMATIC. DENIES DIZZINESS. IV FLUIDS INFUSING AT 100MLS/HR, SITE WNL. VOIDING QS, MULTIPLE BM'S.
--- NOTE | 2019-08-24 08:18 | NUR ---
REPORT RECIEVED. PT IN BED. AWAKE AND ALERT. LR AT 100. CALL LIGHT IN REACH. SBA TO BATHROOM FOR MULTIPLE BMS. DENEIS PAIN OR NEEDS.
--- NOTE | 2019-08-24 09:20 | NUR ---
ASSESSMENT COMPELTED. MEDICATIONS ADMINSITERED. REPORTS 06/13 NOLEN. 0.5 DILAUDID ADMINISTERED. BOWEL TONES HYPERACTIVE. HEART SOUNDS REGULAR. LUNGS CLEAR. IV SITE WNL. FAMILY AT BEDSIDE. PRE-PROCEDURE CHECKLIST COMPLETED. CALL LIGHT IN REACH. DENEIS FURTHER NEEDS.
[2019-08-24] MEDS ORDERED: ZESTRIL10 MG PO (11:25)
--- NOTE | 2019-08-24 11:36 | NUR ---
THIS NURSE ROUNDED ON PT. REPORTS PAIN IS MINIMAL AND TOELRABLE AT THIS TIME. CALL LIGHT IN REACH.
[2019-08-24] MEDS ORDERED: PROBIOTIC1 EAC1 PO (12:04)
--- NOTE | 2019-08-24 12:07 | NUR ---
MED REC COMPLETE
--- NOTE | 2019-08-24 12:08 | NUR ---
ROUNDED ON PT. REPORTS PAIN TO BE MINIMAL AND TOLERABLE. HEAT PACK ON ABDOMEN. IV FLUIDS REFRESHED. CALL LIGHT IN REACH. DENEIS NEEDS.
--- NOTE | 2019-08-24 13:10 | NUR ---
PT OFF FLOOR TO PROCEDURE.
--- NOTE | 2019-08-24 14:08 | NUR ---
PT TAKEN TO DS FOR PROCEDURE. WILL FOLLOW NEEDED
--- NOTE | 2019-08-24 14:17 | NUR ---
Pt. rest in bed, waiting to go for colonoscopy. Pt is rubbing abd and moaning. Family in room and pt gets up to bathroom with assist of aid. Family state he lives with 2 daughters and grandaughters. Daughters provide full care. DC plan is pending at this time until results of colonoscopy.
--- NOTE | 2019-08-24 14:48 | NUR ---
08/24/19 1448 Cuca Lopez 1432: PT ARRIVES TO PACU WITH EYES CLOSED, NON AROUSAL TO VERBAL OR TACTILE STIMULI. PT VERY HARD OF HEARING. PT RESP EVEN AND UNLABORED, ON 3L NC. 1436: IRREGULAR HR NOTED. 3 LEAD PLACED, SINUS ARRYTHMIA WITH OCCASIONAL PVC'S. PT REPOSITIONED FROM LEFT LATERAL TO SUPINE POSITION FOR ACCURATE BP. PT AROUSES WITH PAINFUL STIMULI BY OPENING EYES AND THEN QUICKLY FALLS BACK ASLEEP.
--- NOTE | 2019-08-24 15:15 | NUR ---
PT ARRIVED TO FLOOR VIA STRETCHER. ABLE TO STAND WITH 1PA TO TRANSFER TO BED. VITALS TAKEN. BLOOR PRESSURE SLIGHTLY LOW WITH A SISTOLIC PRESSURE OF 90. PT ARROUSABLE TO VERBAL STIMULI. STILL DROWSY WITH EYES MOSTLY CLOSED. SCD'S PLACED. ASSESSMENT COMPLETED. BOWEL TONES HYPERACTIVE. PT DENEIS NAUSEA OR PAIN AT THIS TIME. SBA TO BATHROOM, PT DENEIS DIZZINESS OR LIGHTHEADEDNESS. 100ML VOID AND SMALL LIQUID STOOL PRODUCED. ONCE BACK TO BED, BLOOD PRESSURE REASSESSED TO BE 102/52. PT PLACED ON CPOX. O2 IN THE HIGH 90'S. PULSE IRREGULAR. FAMILY AT BEDSIDE. ICE WATER PROVIDED. CALL LIGHT IN REACH. DENEIS FURTHER NEEDS.
--- NOTE | 2019-08-24 17:44 | NUR ---
ROUNDED ON PT. VITALS TAKEN AND NORMAL. PT UP TO BATHROOM FOR BM AND 100ML VOID. DENIES PAIN OR NAUSEA. CALL LIGHT IN REACH FAMILY AT BEDSIDE.
--- NOTE | 2019-08-24 18:48 | NUR ---
PT REPORTING PAIN 06/13. 0.5 DILAUDID ADMINISTERED. LOW BLOOD PRESSURE REPORTING TO DR RAMON. ONLY NOTIFY FOR BLOOD PRESSURES BELOW 90 SYSTOLIC.
--- NOTE | 2019-08-24 19:25 | NUR ---
SHIFT REPORT RECIEVED FROM DAYSHIFT JAIME BINGHAM, PT ON RA, CPOX IN PLACE. O2 SAT AND HR WNL. IV FLUIDS INFUSING AT 100MLS/HR, SITE WNL. FAMILY IN ROOM. PT DENIES CONCERNS OR NEEDS AT THIS TIME, CALL LIGHT IN REACH.
--- NOTE | 2019-08-24 22:30 | NUR ---
ASSESSMENT COMPLETE, NO SCHEDULED MEDS. VSS, PT DENIES PAIN AT THIS TIME. NO DISTRESS NOTED. BOWEL TONES ACTIVE, PT DENIES NAUSEA. NO ADDITIONAL NEEDS AT THIS TIME, CALL LIGHT IN REACH. FAMILY IN ROOM.
--- NOTE | 2019-08-24 23:30 | NUR ---
PRN PAIN MEDICATION GIVEN FOR 8-9/10 PAIN. NEW BAG OF IV FLUIDS INFUSING AT 100MLS/HR, SITE WNL. NO FURTHR NEEDS, CALL LIGHT IN REACH.
--- NOTE | 2019-08-25 00:57 | NUR ---
PT RESTING IN BED, EYES CLOSED. RESPIRATIONS EVEN AND UNLABORED. PT ON RA, CPOX IN PLACE. O2 SAT AND HR WNL. CALL LIGHT IN REACH.
--- NOTE | 2019-08-25 02:48 | NUR ---
PT RESTING IN BED, EYES CLOSED. RESPIRATIONS EVEN AND UNLABORED. PT ON RA, CPOX IN PLACE. NO DISTRESS OR SIGNS OF PAIN NOTED AT THIS TIME. CALL LIGHT IN REACH. IV FLUIDS INFUSING AT 100MLS/HR, SITE WNL. CALL LIGHT IN REACH.
--- NOTE | 2019-08-25 03:21 | NUR ---
ASSESSMENT COMPLETE, PT UP SBA TO BATHROOM AND BACK TO BED. PT ON CPOX, O2 SAT AND HR WNL. PT REPORTS PAIN GOES FROM 3-9 DEPENDING ON IF HE IS IN BED OR RECENTLY BACK FROM THE BATHROOM. DENIES NEED FOR PAIN MEDICATION AT THIS TIME, WILL MONITOR. IV FLUIDS INFUSING AT 100MLS/HR, SITE WNL. DAUGHTER IN ROOM, NO CONCERNS AT THIS TIME. CALL LIGHT IN REACH.
--- NOTE | 2019-08-25 04:05 | NUR ---
PRN PAIN MEDICATION GIVEN FOR 10/10 PAIN AFTER RETURNING FROM THE BATHROOM. CPOX IN PLACE, O2 SAT 96% ON RA, HR 67. NO FURTHER NEEDS, CALL LIGHT IN REACH.
--- NOTE | 2019-08-25 04:26 | NUR ---
PT UP FREQUENTLY THROUGHOUT THE NIGHT DUE TO BM'S AND ABDOMINAL CRAMPING. PAIN CONTROLLED WITH PRN PAIN MEDICATION. VSS, CPOX IN PLACE. SBA WITH AMBULATION, USES CALL LIGHT APPROPERIATELY. IV FLUIDS INFUSING AT 100MLS/HR, SITE WNL.
--- NOTE | 2019-08-25 05:49 | NUR ---
prn pain medication given for 10/10 abdominal pain and cramping. pt back from bathroom and resting in bed. iv fluids infusing at 100mls/hr, site wnl. no additional needs, call light in reach. daughter in room. scd's on.
--- NOTE | 2019-08-25 07:05 | OR ---
[facility] [address] [facility] [place], [place] [address] Signed DATE OF OPERATION: 08/24/2019 SURGEON: Olena Ramon MD PREOPERATIVE DIAGNOSES: 1. Unspecified rectal mass. 2. Anemia. POSTOPERATIVE DIAGNOSES: 1. 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 2. Indurated nodular prostate gland. 3. Minimal internal hemorrhoids. PROCEDURES: 1. Limited colonoscopy (10 cm) with cold biopsies. 2. Rigid proctoscopy (10 cm). ESTIMATED BLOOD LOSS: None. FINDINGS: Kris has a circumferential palpable rectal mass at the tip of the index finger. His prostate gland is also indurated and somewhat nodular more on the left than on the right. The colonoscope revealed his circumferential tumor and it measured out at 10 cm with the rigid proctoscope. INDICATIONS: Kris is a 78-year-old gentleman, who generally maintains decent body mass. The last 2-1/2 months, he has been having abdominal distention, crampy abdominal pain, diarrhea, and rectal bleeding. He has been following along with his primary care provider. He tried various conservative treatments and nothing was working. It seemed to be getting worse, so he came to emergency room for evaluation. In the emergency room, his hemoglobin was initially 14, but with hydration, it dropped to 12.7. Consequently, he is mildly anemic, although the mean cell volume is normal at 99. BUN and creatinine are fine. Liver function tests are fine. Albumin is good at 3.8. His CEA level still pending. He had a CT scan of the abdomen and pelvis performed and he has a circumferential mass in the distal sigmoid colon and rectum with a lumen probably 5 mm in diameter. The mass is probably 15 cm in length in the wall of that distal sigmoid colon, the rectum is very thick at 15 mm. There were obvious nodules in the mesentery and in the omentum. He has a small amount of ascites in the abdomen. There is probably Electronically Signed By: OLENA RAMON MD 08/25/19 0705 PATIENT NAME: KRIS ROJAS SR OPERATIVE REPORT DATE OF : 38 REPORT #: [id number] PHYSICIAN: OLENA RAMON MD PCP: LIZETTE MACIAS REPORT IS CONFIDENTIAL AND NOT TO BE RELEASED WITHOUT AUTHORIZATION [facility] [address] [place] [id number] Signed a lesion in the left lung as well. Given those findings, I was asked to admit him as a general surgeon on-call to expedite his care. He was admitted yesterday, hydrated, and given MiraLax/Gatorade bowel prep. I had met with Kris and his two daughters and we had a long discussion regarding the current findings and our significant concern for cancer. I explained to Kris and his daughters that we needed tissue pathology for definitive diagnosis. He said he has never had a colonoscopy. I reviewed with him in detail along with the risks including, but not limited to gas bloating, crampy abdominal pain, bleeding, perforation requiring surgery, and missed diagnosis. He and his daughter had expressed understanding and wished to proceed. PROCEDURE NOTE: Kris was taken into our endoscopy suite and placed in the left lateral decubitus position. He was given a total of 5 mg of Versed and 100 mcg of fentanyl. A digital rectal exam was performed and I could feel a circumferential mass at the tip of the index finger about 10 cm from the anal verge. Incidentally, his prostate gland is not overly enlarged, but it is very indurated a little bit and there is a small nodule on the left side. It is probably worthwhile to send a PSA level as well. After this, the adult colonoscope was inserted and we could easily see the circumferential mass. Of course, the lumen is quite small and the colonoscope would not pass through it. It has the obvious appearance of a tumor. We took circumferential cold biopsies for pathologic review. We had just enough room to retroflex the scope and he has minimal internal hemorrhoid columns. No pathology otherwise between the anus and the tumor. We inserted the rigid proctoscope up to the edge of the tumor, measured out of 10 cm from the anal verge. After this, the gas allowed to escape and the rigid proctoscope was removed. Kris tolerated the procedure quite well. RECOMMENDATIONS: Kris will be returned to his room today. I think we will let him have a full liquid diet and because of his age and his overall functional status, we will probably keep in today with considerations, we will let him go home tomorrow. I will talk extensively with him when the drugs are worn off and with his two daughters here in just a few minutes. MD BRANDON Nixon/RICHL /[id number] Electronically Signed By: OLENA RAMON MD 08/25/19 0705 PATIENT NAME: KRIS ROJAS OPERATIVE REPORT DATE OF : 38 REPORT #: [id number] PHYSICIAN: OLENA RAMON MD PCP: LIZETTE MACIAS REPORT IS CONFIDENTIAL AND NOT TO BE RELEASED WITHOUT AUTHORIZATION [place] [address] [place], [place] [address] Signed cc: Lizette Macias, Nurse Practitioner Olena Ramon MD Copies: OLENA RAMON MD ~ Electronically Signed By: OLENA RAMON MD 08/25/19 0705 PATIENT NAME: KRIS ROJAS OPERATIVE REPORT DATE OF : 38 REPORT #: [id number] PHYSICIAN: OLENA RAMON MD PCP: LIZETTE MACIAS REPORT IS CONFIDENTIAL AND NOT TO BE RELEASED WITHOUT AUTHORIZATION
--- NOTE | 2019-08-25 07:30 | NUR ---
Report received, orders acknowledged. Patient sleeping in room with family at bedside. No needs at this time, call light within reach.
--- NOTE | 2019-08-25 08:30 | NUR ---
Patient resting comfortably in bed with family in room. Assessment complete, patient denies pain. Warm blankets provided. Denies any needs at this time, call light within reach.
--- NOTE | 2019-08-25 09:46 | NUR ---
PATIENT RESTING IN BED. FAMILY IN ROOM. VITAL SIGNS AND I&O DONE. CALL LIGHT WITHIN REACH. NO OTHER NEEDS AT THIS TIME
--- NOTE | 2019-08-25 10:30 | NUR ---
Patient laying in bed, denies pain. Family denies any needs. POC discussed. Call light within reach.
--- NOTE | 2019-08-25 11:25 | NUR ---
PATIENT RESTING IN BED. FAMILY IN ROOM. PATIENT GOES TO USE BATHROOM. ONE PERSON ASSISTING. SETS UP BATHROOM FOR SHOWER. LINENS CHANGED. PATIENT TAKES A SHOWER. ONE PERSON ASSISTING. PATIENT USING A CLEAN GOWN AND ADULT PULL UP. PATIENT BACKS TO BED. WARM BLANKET PROVIDED. CALL LIGHT WITHIN REACH. NO OTHER NEEDS AT THIS TIME
[2019-08-25] MEDS ORDERED: NORCO 5-325 TA1 EACH PO (12:30)
[2019-08-25] MEDS ORDERED: MIRALAX17 GM PO (12:35)
[2019-08-25] MEDS ORDERED: COLACE100 MG PO (12:35)
[2019-08-25] MEDS ORDERED: TYLENOL325 MG PO (12:43)
--- NOTE | 2019-08-25 12:45 | NUR ---
Patient up to toilet with 1PA. D5LR running at 100 mls/hr. Call light within reach.
--- NOTE | 2019-08-25 13:15 | NUR ---
PATIENT RESTING IN BED. DAUGHTERS IN ROOM. VITAL SIGNS AND I&O DONE. LOW BLOOD PRESSURE, LOW INTAKE AND HIGH OUTPUT. RN NOTIFIED. CALL LIGHT WITHIN REACH. NO OTHER NEEDS AT THIS TIME
--- NOTE | 2019-08-25 14:30 | NUR ---
Discharge instructions given, questions and concerns answered. Vital signs taken, IV D/C'd. Patient verbalized understanding of POC. Patient leaves unit with wheelchair, family and nursing staff.
--- NOTE | 2019-08-29 07:50 | DS ---
[facility] [address] [place] [place] [address] Signed ADMISSION DATE: 08/23/2019 DISCHARGE DATE: 08/25/2019 FINAL DIAGNOSIS: Rectal tumor. PROCEDURES: 1. Limited colonoscopy with biopsies. 2. Rigid proctoscopy. HISTORY OF PRESENT ILLNESS: Kris is a 78-year-old gentleman, who lives with his family, although he is a . He generally has good muscle mass and decent functional status given his age. He was having some trouble with abdominal distention, rectal bleeding, and diarrhea for about 2-1/2 months. He had been seeing his primary care provider. He was found to be H pylori positive and that was treated. It made no change. He has been trying various outpatient conservative medical measures and nothing has been helping. He finally came to emergency room for evaluation. In the emergency room, his hemoglobin was good at 14. His albumin was good at 3.8, but the CT scan showed a thickened distal sigmoid colon and rectum over about 15 cm in length. The wall is about 15 mm thick. There were multiple nodules in the omentum and mesentery along with some small ascites in the abdomen. The colonic lumen is quite small at about 5 mm. There may or may not be a left lung nodule and there is some diverticulosis. Consequently, I have been asked to admit him as a general surgeon on-call to expedite his care. HOSPITAL COURSE: I admitted Kris as above and he actually tolerated his MiraLAX and Gatorade bowel prep, although was crampy. He did get through it. We took him for his colonoscopy on 08/24/2019. At 10 cm at the tip of my index finger, I could feel a circumferential tumor. This was confirmed with the colonoscope and we took multiple circumferential biopsies of this along with multiple pictures for photodocumentation. We inserted our rigid proctoscope and the tumor was at 10 cm from the anal verge. Interestingly, it seems mobile. I did not feel like it was attached to surrounding structures as I pushed on and I could move it back and forth. Because of his age, we kept him overnight to let the Versed and fentanyl wore off. I spoke with his daughters afterwards and then I spoke with Kris and his daughter, Gissel, today. He is in a very difficult situation. He is contemplating his options, but he really has not answered me yet. His daughters were very supportive and they are awaiting his answer as well. We talked about a diverting colostomy versus a resection, although none of these options will be curative. At this point, he wants to go home with his family for the weekend and will be contacting him again early next week. I explained to Kris and his family that Electronically Signed By: LOENA RAMON MD 08/29/19 0750 PATIENT NAME: KRIS ROJAS SR DISCHARGE SUMMARY DATE OF : 38 REPORT #: [id number] PHYSICIAN: OLENA RAMON MD PCP: LIZETTE MACIAS REPORT IS CONFIDENTIAL AND NOT TO BE RELEASED WITHOUT AUTHORIZATION [facility] [address] [place], [place] [address] Signed some decision needs to be made expeditiously even though our biopsies will be least four days if not seven. He is very close to being completely obstructed. In the meantime, we will let him go home with his family as he has requested. DISCHARGE PLANS AND MEDICATIONS: Kris is going to be discharged home with his usual medications. We will hold his aspirin for the time being. We have asked him to use MiraLAX 17 g p.o. b.i.d. in 8-12 ounces of liquid. We will also ask him to take Colace 100 mg p.o. b.i.d. and stay on a soft diet. He did request that he have some hydrocodone. We are happy to provide that. We will give him [place] 5/325 one tablet p.o. q.6 hours p.r.n. for severe pain. We will dispense 30 tablets with no refills. Otherwise, he could use a little Tylenol for zeql-wb-doyqqebp pain. He can shower and bathe as usual course and perform his activities of daily living. He is going to talk this over more with his family. He is going to let us now. I will go ahead and contact my office and we will be reaching him early next week to see about his decision. They have expressed understanding and agreed above plan. MD BRANDON Nixon/RICK /[id number] cc: MD Lizette Nixon PA-C [facility] Copies: OLENA RAMON MD ~ Electronically Signed By: OLENA RAMON MD 08/29/19 0750 PATIENT NAME: KRIS ROJAS DISCHARGE SUMMARY DATE OF : 38 REPORT #: [id number] PHYSICIAN: OLENA RAMON MD PCP: LIZETTE MACIAS REPORT IS CONFIDENTIAL AND NOT TO BE RELEASED WITHOUT AUTHORIZATION
--- NOTE | 2019-08-29 14:23 | PATH ---
[facility] [address] [facility] [facility] [address] [place], [place] [address] Signed SPECIMEN(S): A RECTUM SPECIMEN SOURCE: A. RECTUM CLINICAL HISTORY: Colon tumor. Rule out rectal Ca+, rectal mass. MICROSCOPIC DESCRIPTION: Histologic sections of all submitted blocks are examined by light microscopy. These findings, together with the gross examination, support the pathologic diagnosis. FINAL PATHOLOGIC DIAGNOSIS: Mucosa, rectum, biopsy: - Poorly differentiated invasive colonic adenocarcinoma, with mucinous and signet ring features. COMMENT: As part of [employer]' Quality Improvement Program, this case was reviewed by another member of our pathology staff. Microsatellite instability testing will be performed and reported as an addendum. BRAF testing has not been ordered and may not be indicated in the absence of metastatic disease. If BRAF testing is desired please order and submit with preauthorization (if indicated). Results called to Dr. Haro 08/29/19 1:45 PM. MOR:TO:cml:C1NR GROSS DESCRIPTION: The specimen, labeled "FC, rectum," is received in formalin and consists of six pink-barker soft tissue fragments that measure 0.2-0.3 cm in greatest dimension. The specimen is entirely submitted in cassette (A1). JS (under the direct supervision of a pathologist) The Gross Description was prepared using a voice recognition system. The report was reviewed for accuracy; however, sound-alike word errors, addition and/or deletions may occur. If there is any question about this report, please contact Client Services. PERFORMING LABORATORY: The technical component was performed by [facility], Alem Szymanski, PATIENT NAME: ARLENE ROJAS PATHOLOGY DATE OF : 38 REPORT #: [id number] PHYSICIAN: CATERINA WAKEFIELD PCP: TROY MACIAS REPORT IS CONFIDENTIAL AND NOT TO BE RELEASED WITHOUT AUTHORIZATION [facility] [address] [place], [place] [address] [place] [address] (Game Moderator: Yenny Young MD; CLIA# [id number]). Professional interpretation was performed by [facility], [address] [address] (Game Moderator: Jamshid Leiva MD; CLIA# [id number]). Diagnostician: Jamshid Leiva MD Pathologist Electronically Signed 08/29/2019 Copies: ~ PATIENT NAME: ARLENE ROJAS PATHOLOGY DATE OF : 38 REPORT #: [id number] PHYSICIAN: CATERINA WAKEFIELD PCP: RTOY MACIAS REPORT IS CONFIDENTIAL AND NOT TO BE RELEASED WITHOUT AUTHORIZATION
== END 2019-08-25 14:30 | disposition home or self-care (01) ==
LOC: ED 09:45 → MS 09:46
PROVIDERS: ADMIT Colon & Rectal Surgery
PROC: 0DBP8ZX Excision of Rectum, Via Natural or Artificial Opening Endoscopic, Diagnostic (ICD-10-PCS; principal; 2019-08-24 11:30)
DX: D49.0 Neoplasm of unspecified behavior of digestive system (principal); K64.8 Other hemorrhoids; N40.2 Nodular prostate without lower urinary tract symptoms; I10 Essential (primary) hypertension; E78.5 Hyperlipidemia, unspecified; F17.210 Nicotine dependence, cigarettes, uncomplicated; H91.90 Unspecified hearing loss, unspecified ear; I25.10 Atherosclerotic heart disease of native coronary artery without angina pectoris; M47.816 Spondylosis without myelopathy or radiculopathy, lumbar region; Z88.0 Allergy status to penicillin; Z88.1 Allergy status to other antibiotic agents; Z79.899 Other long term (current) drug therapy; Z79.82 Long term (current) use of aspirin
CPT/HCPCS: 36415; 74177; 80048; 80053; 81001; 82378; 83690; 83735; 84100; 84134; 84153; 85025; 93005; 93010; 96361; 96372; 96375; 96376; 99153; 99285-25; 99406; C9113; G0378; G0500; J1170; J1650; J2250; J3010; J7040; J7121; Q9967

== ENCOUNTER 2019-09-03 18:22 | Emergency (ER) | payer MEDICARE, OTHER ==
[~2019-09-03] VITALS: Ht 170.2 cm; Wt 73.5 kg
--- OUTSIDE RECORDS SUMMARY | ~2019-09-03 | XMS | Encounter Summary ---
Demographics + + + | Address | [address] | | | [place] [address] | + + + | Home Phone | | + + + | Preferred Language | Unknown | + + + | Marital Status | | + + + | Episcopal Affiliation | Unknown | + + + | Race | Unknown | + + + | Ethnic Group | Unknown | + + + Author + + + | Author | [facility] | | | and [place] | + + + | Organization | [facility] | | [...] Team Providers + +------+ + | Care Airline Station Agent Name | Role | Phone | [...] [place] | | | | | | [phone] | (Fax) | | | | | [phone] | | | +--------+ + + + [...]
--- OUTSIDE RECORDS SUMMARY | ~2019-09-03 | XMS | Encounter Summary ---
Demographics + + + | Address | [address] | | | [place] [address] | + + + | Home Phone | | + + + | Preferred Language | Unknown | + + + | Marital Status | | + + + | Mu-Ism Affiliation | Unknown | + + + | Race | Unknown | + + + | Ethnic Group | Unknown | + + + Author + + + | Author | [facility] | | | and [place] | + + + | Organization | [facility] | | | [...] Team Providers + +------+ + | Care Ux Interaction Designer Name | Role | Phone | + +------+ + | Lizette Martinez | PCP | | + +------+ + Encounter Details +--------+ + + + + | Date | Type | Department | Care Team | Description | +--------+ + + + + | 08/26/ | Hospital | [facility] | Phong [place], | | | 2018 | Encounter | [facility] | [address] | | | | | [address] | [address] | | | | | [address] | [place] [address] | | | | | [place], [place] | [phone] | | | | | [address] | | | | | | [phone] | | | +--------+ + + + [...] | 0 | 05/11/20 | | | (PRINIVIL, ZESTRIL) | daily. | | | 19 | 9 | | 10 mg tablet | | | | | | + + + +---------+ + + documented as of this encounter Plan of Treatment + +---------+--------+ + + | Name | Type | Priori | Associated Diagnoses | Date/Time | | | | ty | | | + +---------+--------+ + + | STORED IMAGE GENERAL | Imaging | Routin | | 08/26/2019 12:03 PM | | SURGERY | | e | | PST | + +---------+--------+ + + documented as of this encounter Visit Diagnoses Not on filedocumented in this encounter"
--- OUTSIDE RECORDS SUMMARY | ~2019-09-03 | XMS | Encounter Summary ---
Demographics + + + | Address | [address] | | | [place] [address] | + + + | Home Phone | | + + + | Preferred Language | Unknown | + + + | Marital Status | | + + + | Taoism Affiliation | Unknown | + + + | Race | Unknown | + + + | Ethnic Group | Unknown | + + + Author + + + | Author | [facility] | | | and [place] | + + + | Organization | [facility] | | | and [...] Team Providers + +------+ + | Care Community Representative Name | Role | Phone | [...] [place] | | | | | | [address] | | | | | | [phone] | | | +--------+ + + + [...] 0.67 m/s MV | | | Dec Fleming: 1.81 m/s2 MV DecT: 317.65 ms MV E Emanuel: 0.57 m/s | | | MV E/A Ratio: 0.85 E/E' Sept: 11.69 E' Lat: 0.08 m/s E' | | | Sept: 0.04 m/s RAP: 5 mmHg RV S': 0.12 m/s RVSP: 25.91 | | | mmHg TR maxP.91 mmHg TR Vmax: 2.28 m/s Ad Operations Specialist: | | | Authenticated by: Cici Abraham [...] mlLAESV Index (A-L): 24.25 ml/m2LAAs A2C: 14.49 [id number] A-L A2C: 33.91 | | mlLAESV MOD A2C: 32.12 mlLALs A2C: 5.25 cmLAAs A4C: 19.79 [id number] A-L A4C: | | 58.12 mlLAESV MOD A4C: 57.48 mlLALs A4C: 5.72 cmRAAs: 18.17 [id number] A-L: 49.96 | | mlRAESV MOD: 49.15 mlRALs: 5.60 cmTAPSE: 2.19 cmAV Env.Ti: 293.90 msAV maxPG: | | 4.91 mmHgAV meanP.41 mmHgAV Vmax: 1.10 m/Milton Vmean: 0.72 m/Milton VTI: 21.23 | | cmAVA Vmax: 3.17 cm2AVA (VTI): 3.89 [id number] Vmax: 0.00 cm2/m2AVAI (VTI): 0.00 | | cm2/m2LVOT Env.Ti: 360.44 msLVOT maxP.14 mmHgLVOT meanP.50 mmHgLVSI Dopp: | | 43.29 ml/m2LVSV Dopp: 82.69 mlLVOT Vmax: 0.88 m/sLVOT Vmean: 0.57 m/sLVOT VTI: | | 20.85 cmMV A Emanuel: 0.67 m/sMV Dec Fleming: 1.81 m/s2MV DecT: 317.65 msMV E Emanuel: | | 0.57 m/sMV E/A Ratio: 0.85E/E' Sept: 11.69E' Lat: 0.08 m/sE' Sept: 0.04 m/sRAP: | | 5 mmHgRV S': 0.12 m/sRVSP: 25.91 mmHgTR maxP.91 mmHgTR Vmax: 2.28 m/s | | Ad Operations Specialist:Authenticated by: Cici Robles Date/Time: 02-21-2019 19:5:14 | [...] A Emanuel: 0.67 m/s | |MV Dec Fleming: 1.81 m/s2 | |MV DecT: 317.65 ms | |MV E Emanuel: 0.57 m/s | |MV E/A Ratio: 0.85 | |E/E' Sept: 11.69 | |E' Lat: 0.08 m/s | |E' Sept: 0.04 m/s | |RAP: 5 mmHg | |RV S': 0.12 m/s | |RVSP: 25.91 mmHg | |TR maxP.91 mmHg | |TR Vmax: 2.28 m/s | | | |Ad Operations Specialist: | |Authenticated by: Cici Abraham | |Report [...]
--- OUTSIDE RECORDS SUMMARY | ~2019-09-03 | XMS | Clinical Summary ---
Demographics + + + | Address | [address] | | | [place] [address] | + + + | Home Phone | | + + + | Preferred Language | Unknown | + + + | Marital Status | | + + + | Yazidi Affiliation | Unknown | + + + [...] Team Providers + +------+ + | Care Cable Armorer Operator Name | Role | Phone | [...] | 11/2 | | Activ | | (ROXICODONE) 5 mg | mouth every 4 hours | tablet | | 7/20 | | e | | tablet | [...] (PRINIVIL, ZESTRIL) | daily. | | | 8/ | 04/22 | ntinu | | 10 mg tablet | | | | 19 | 19 | ed | + + + +---------+------+------+-------+ | loperamide | Take 2 mg by mouth 4 | | 0 | | 08/05 | Disco | | (IMODIUM) 2 mg | times daily as | | | | 220 | ntinu | | capsule | needed for Diarrhea. | | | | 19 | ed | | | Take two capsules | | | | | (Carin | | | by mouth at the | | | | | ent | | | onset, then take one | | | | | Not | | | capsule as | | | | | Takin | | | directed. | | | | | g) | + + + +---------+------+------+-------+ | | Take by mouth. | | 0 | | 11/2 | Disco | | Raehnue-Ppazjulcm-Qx | | | | | /20 | ntinu | | tamin D (CALCIUM 500 | | | | | 19 | ed | | PO) | | | | | | (Carin | | | | | | | | ent | | | | | | | | Not | | | | | | | | Takin | | | | | | | | g) | + + + +---------+------+------+-------+ Active Problems + + + | Problem | Noted Date | + + + | Rectal mass | 08/25/2019 | + + + | Anemia | 08/25/2019 | + + + | Colorectal tumor | 08/25/2019 | + + + + + | Overview: Added automatically from request for surgery | | [id number] | + + + + + | Rectal obstruction | 08/25/2019 | + + + + + | Overview: Added automatically from request for surgery | | [id number] | + + + + + | [...] | | Judson Mcmullen | | | 2019 | Event | | DEANNA Toure | [...] J?MRN: | | | | | | [id number] | | | [id number] | | | riteri | | | [...] | | | St. | | | [place] | | | y | | | [...] | | | St. | | | [place] | | | y H. | | [...] | | | St. | | | [place] | | | y H. | | [...] | | | 1-103a | | | [id number] | | | 40 | | | [...] [email or web address] | | | m | +---+--------+ from Last 3 Months Results CBC with Differential (08/30/2019 4:29 AM PST)Only [...] | Absolute | performed at [facility], [address] | [address] | LABORATORY | | | | [address], | | | | | | [place] [address] | | | | + + + + + + + + | Specimen | + + | Blood | + + + + + + + | Performing | Address | City/State/Zipcode | Phone Number | | Organization | | | | + + + + + | [facility] | [address] | [place] [address] | [phone] | + + + + + Comprehensive [...] | >60Comment: GFR <60: | >60 | [facility] | | | GFR | CHRONIC [...] | | | performed at [facility], [address] | | | | | | [facility], | | | | | | [place] [address] | | | | + + + + + + + + | Specimen | + + | Blood | + + + + + + + | Performing | Address | City/State/Zipcode | Phone Number | | Organization | | | | + + + + + | [facility] | [address] | [place] [address] | [phone] | + + + + + Phosphorus [...] Testing | 2.3 - 4.8 mg/dL | [facility] | | | | performed at [facility];[address] | | LABORATORY | | | | [address];[place] | | | | | | [address] | | | | + + + + + + + + | Specimen | + + | Blood | + + + + + + + | Performing | Address | City/State/Zipcode | Phone Number | | Organization | | | | + + + + + | [facility] | [address] | [place] [address] | [phone] | + + + + + Magnesium [...] Testing | 1.7 - 2.4 mg/dL | [facility] | | | | performed at [facility];[address] | | LABORATORY | | | | [address];[place], [place] | | | | | | [address] | | | | + + + + + + + + | Specimen | + + | Blood | + + + + + + + | Performing | Address | City/State/Zipcode | Phone Number | | Organization | | | | + + + + + | [facility] | [address] | [place] [address] | [phone] | + + + + + Basic [...] | >60Comment: GFR <60: | >60 | [facility] | | | GFR | CHRONIC [...] | | | | | performed at [facility];[address] | | | | | | [facility];[place], [place] | | | | | | [address] | | | | + + + + + + + + | Specimen | + + | Blood | + + + + + + + | Performing | Address | City/State/Zipcode | Phone Number | | Organization | | | | + + + + + | [facility] | [address] | [place] [address] | [phone] | + + + + + POC [...] Testing | 65 - 99 mg/dL | [facility] | | | POC | performed at [facility];[address] | | LABORATORY | | | | [address];[place] | | | | | | [address] | | | | + + + + + + + + | Specimen | + + | | + + + + + + + | Performing | Address | City/State/Zipcode | Phone Number | | Organization | | | | + + + + + | [facility] | [address] | [place] [address] | [phone] | + + + + + Surgical [...] Performed At | + + + | SPECIMEN(S): A | [facility] | | PERITONEUM, ABDOMINAL BIOPSYSPECIMEN(S): B OMENTAL BIOPSYSPECIMEN(S): | INCYTE | | C RECTAL SIGMOID BIOPSY SPECIMEN SOURCE:A. PERITONEUM, ABDOMINAL | | | BIOPSYB. OMENTAL BIOPSYC. RECTAL SIGMOID BIOPSY CLINICAL HISTORY:D49.0 | | | (colorectal tumor), K62.4 (rectal obstruction). FINAL PATHOLOGIC | | | DIAGNOSIS:A. 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 B. | | | Omentum, biopsy:- Metastatic adenocarcinoma with signet ring cell | | | features; see comment. C. 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 | | | COMMENT:Histologic sections of the peritoneum and omentum show | | | similar morphologic findings as the rectosigmoid biopsy. 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 As part of | | | [employer] Quality Improvement Program, this case was | | | reviewed by another member of our pathology staff. DDF:AMB:emb:C1NR | | | MICROSCOPIC EXAMINATION:Histologic sections of all submitted blocks | | | are examined by light microscopy. These findings, together with the | | | gross examination, support the pathologic diagnosis. GROSS | | | DESCRIPTION:Three specimens are received in three containers, labeled | | | "FC." A. The specimen, labeled "FC, abdominal peritoneum biopsy," is | | | received in formalin and consists of three brown-yellow portions of | | | adipose tissue that are covered by a shiny membranous surface. | | | Thetissue fragments range from 1.3 cm to 4.2 x 2.4 x 0.6 cm. | | | Throughout the specimen there are multiple barker-white nodules ranging | | | from 0.2-0.4 cm in greatest dimension. The remainder of the cut | | | surfaceis barker-yellow and lobulated. Parking Lot Attendant And Cashier sections are | | | submitted in cassette (A1). B. The specimen, labeled "FC, omental | | | biopsy," is received in formalin and consists of a 3.2 by 3.1 by 1.1 | | | cm aggregate of barker-yellow, lobulated and slightly fragmented portions | | | of tissue. The cutsurface reveals multiple barker-white nodules | | | ranging from 0.7-0.9 cm in greatest dimension. The remainder of the | | | cut surface is barker-yellow and lobulated. Parking Lot Attendant And Cashier sections are | | | submitted incassette (B1). C. The specimen, labeled "FC, | | | rectosigmoid biopsy," is received in formalin and consists of six, | | | 0.1-0.4 cm barker-white tissue fragments. Specimen is entirely submitted | | | in cassette (C1).AM (under the direct supervision of a pathologist) | | | The Gross Description was prepared using a voice recognition system. | | | The report was reviewed for accuracy; however, sound-alike word | | | errors, addition and/or deletions may occur. If there is anyquestion | | | about this report, please contact Client Services. PERFORMING | | | LABORATORY:The technical component was performed by [facility] | | | [facility], [address] [place] [address] (Shift Stacker: | | | Yenny Young MD; CLIA# [id number]). Professional interpretation was | | | [facility] | | | [address] (Shift Stacker: Kenyon | | | Celine Delacruz; CLIA#: [id number]). Diagnostician: Nicanor Elias | | | DOPathologistElectronically Signed 08/30/2019 | | |The Gross Description was prepared using a voice recognition system. The report was revie wed for accuracy; however, sound-alike word errors, addition and/or deletions may occur. I f there is any | | |question about this report, please contact Client Services. | | | | | |PERFORMING LABORATORY: | | |The technical component was performed by [facility], [address] [place] [address] (Shift Stacker: Yenny Young MD; CLIA# [id number]). Professional interpretation was performed by | | |[facility], [address] [place], [place] [address] (Shift Stacker: Kenyon Delacruz M.D.; CLIA#: [id number]). | | | | | |Diagnostician: Nicanor Elias DO | | |Pathologist | | |Electronically Signed 08/30/2019 | | | | | | | [...] | | [facility] | | | | [facility];[address] | | LABORATORY | | | | [address];[place] [address] | | | | + + + + + + + + | Specimen | + + | Blood | + + + + + + + | Performing | Address | City/State/Zipcode | Phone Number | | Organization | | | | + + + + + | [facility] | [address] | [place] [address] | [phone] | + + + + + Iron [...] | | | | | | [place] [address] | | | | + + + + + + + + | Specimen | + + | Blood | + + + + + + + | Performing | Address | City/State/Zipcode | Phone Number | | Organization | | | | + + + + + | [facility] | [address] | [place] [address] | [phone] | + + + + + Protime [...] | | | | | performed at [facility] | | | | | | [address];[place], [place] | | | | | | [address] | | | | + + + + + + + + | Specimen | + + | Blood | + + + + + + + | Performing | Address | City/State/Zipcode | Phone Number | | Organization | | | | + + + + + | [facility] | [address] | [place] [address] | [phone] | + + + + + CBC [...] | | | | | [place] [address] | | | | + + + + + + + + | Specimen | + + | Blood | + + + + + + + | Performing | Address | City/State/Zipcode | Phone Number | | Organization | | | | + + + + + | [facility] | [address] | [place] [address] | [phone] | + + + + + Ferritin (08/26/2019 4:25 AM PST) + + + + + + | Component | Value | Ref Range | Performed | Pathologist | | | | | At | Signature | + + + + + + | Ferritin | 144Comment: Testing | 11 - 450 ng/mL | [facility] | | | | performed at [facility], [address] | | LABORATORY | | | | [address], | | | | | | [place] [address] | | | | + + + + + + + + | Specimen | + + | Blood | + + + + + + + | Performing | Address | City/State/Zipcode | Phone Number | | Organization | | | | + + + + + | [facility] | [address] | [place] [address] | [phone] | + + + + + Urinalysis [...] - 1.030 | [facility] | | | [place], | | | LABORATORY | | | [...] | | LABORATORY | | | | [facility];[address];[place] [address] | | | | + + + [...] | + + + + + | [facility] | [address] | [place] [address] | [phone] | + + + + + from [...] +--------+ +---------+--------+ | MEDICARE | MEDICA | [id number] | 04/03/20 | [phone] | | Medica | | | RE | | 14-Pre | 5 | | re | | | PART A | | sent | | | | | | AND B | | | | | | + +--------+ +--------+ +---------+--------+ | [facility] | IHS | | Effect | | | Indemn | | SERVICE | YELLOW | | bree | | | ity | | | HAWK | | for | | | | | | | | all | | | | | | | | dates | | | | + +--------+ +--------+ +---------+--------+ | [facility] | IHS | [id number] | 10/04/19 | | | Indemn | | SERVICE | YELLOW | | 19-Pre | | | ity | | | HAWK | | sent | | | | + +--------+ +--------+ +---------+--------+ | MEDICARE | MEDICA | [id number] | 04/03/20 | [phone] | | Medica [...] Person | Self | [birth year] | | [address] | | | al/Fam | | 1941 | [phone] | [place] [address] | | | tunde | | | 9 (Home) | | + +--------+ +--------+ + + | Kris Delgado | Person | Self | [birth year] | | [address] | | | al/Fam | | 1941 | [phone] | [place] [address] | | | tunde | | | 9 (Home) | | + +--------+ +--------+ + + Advance Directives + + + + + | Type | Date Recorded | Patient | Explanation | | | | Parking Lot Attendant And Cashier | | + + + + + | Power of | | | | | Parking Analyst | | | | + + + [...]
--- OUTSIDE RECORDS SUMMARY | ~2019-09-03 | XMS | Clinical Summary ---
Demographics + + + | Address | [address] | | | [place] [address] | + + + | Home Phone | | + + + | Preferred Language | Unknown | + + + | Marital Status | Unknown | + + + | Christian Affiliation | Unknown | + + + | Race | Unknown | + + + | Ethnic Group | Unknown | + + + Author + + + | Author | [facility] (Historical as of | | | 05-20-19) | + + + | Organization | [facility] (Historical as of | | | 05-20-19) [...] Team Providers + +------+ + | Care Forge Helper Name | Role | Phone | + [...] | | + +--------+ +------+-------+ + | /[facility] | YELLOW | [id number] | | | | | PLANS | HAWK | | | | | + +--------+ +------+-------+ + | MEDICARE | MEDICA | [id number] | | | [address] | | | RE | | | | [place] [address] | | | IP-OP | | | [...] | Self | [birth year] | Home: | [address] | | | al/Fam | | 1941 | [phone] [place] [address] | | | [place]de | | | [phone] | | + +--------+ +--------+ + +
--- OUTSIDE RECORDS SUMMARY | ~2019-09-03 | XMS | Encounter Summary ---
Demographics + + + | Address | [address] | | | [place] [address] | + + + | Home Phone [...] Team Providers + +------+ + | Care Park Keeper Name | Role | Phone | + [...] [place] | | | | | | [address] | (Fax) | | | | | [phone] | | | +--------+ + + + [...]
--- OUTSIDE RECORDS SUMMARY | ~2019-09-03 | XMS | Encounter Summary ---
Demographics + + + | Address | [address] | | | [place] [address] | + + + | Home Phone [...] Team Providers + +------+ + | Care It Solutions Architect Name | Role | Phone | + [...] + + | 08/26/ | Anesthesia | [facility] | Judson Mcmullen | | | 2019 | Event [facility] | [address] | | | | | OPER[address] | [address] | | | | | [address] | [place] [address] | | | | | [place], [place] | [phone] | | | | | [address] | | | | | | [phone] | | | +--------+ + + + [...] Authorizing provider: Judson | | | Mesfin cMmullen CRNA Please see intraoperative grid for any [...]
--- OUTSIDE RECORDS SUMMARY | ~2019-09-03 | XMS | Clinical Summary ---
Demographics + + + | Address | [address] | | | [place] [address] | + + + | Home Phone | | + + + | Preferred Language | Unknown | + + + | Marital Status | | + + + | Muslim Affiliation | Unknown | + + + [...] Team Providers + +------+ + | Care Eyelet Operator Name | Role | Phone | [...] | | 11/2 | [facility] | | [id number] | | | | | /20 | [...] automatically from request for surgery | | [id number] | + + + + + | Rectal obstruction | 08/25/2019 | + + + + + | Overview: Added automatically from request for surgery | | [id number] | + + + + + | [...] J?MRN: | | | | | | [id number] | | | [id number] | | | riteri | | | [...] | | | St. | | | [place] | | | y | | | [...] | | | St. | | | [place] | | | y H. | | [...] | | | St. | | | [place] | | | y H. | | [...] | | | 1-103a | | | [id number] | | | 40 | | | [...] | | | Absolute | performed at [facility], [address] | [address] | LABORATORY | | | | [address], | | | | | | [place] [address] | | | | + + + + + + + + | Specimen | + + | Blood | + + + + + + + | Performing | Address | City/State/Zipcode | Phone Number | | Organization | | | | + + + + + | [facility] | [address] | [place] [address] | [phone] | + + + + + Comprehensive [...] | >60Comment: GFR <60: | >60 | [facility] | | | GFR | CHRONIC [...] | | | | | performed at [facility], [address] | | | | | | [facility], | | | | | | [place] [address] | | | | + + + + + + + + | Specimen | + + | Blood | + + + + + + + | Performing | Address | City/State/Zipcode | Phone Number | | Organization | | | | + + + + + | [facility] | [address] | [place] [address] | [phone] | + + + + + Phosphorus [...] Testing | 2.3 - 4.8 mg/dL | [facility] | | | | performed at [facility];[address] | | LABORATORY | | | | [address];[place] | | | | | | [address] | | | | + + + + + + + + | Specimen | + + | Blood | + + + + + + + | Performing | Address | City/State/Zipcode | Phone Number | | Organization | | | | + + + + + | [facility] | [address] | [place] [address] | [phone] | + + + + + Magnesium [...] Testing | 1.7 - 2.4 mg/dL | [facility] | | | | performed at [facility];[address] | | LABORATORY | | | | [address];[place], [place] | | | | | | [address] | | | | + + + + + + + + | Specimen | + + | Blood | + + + + + + + | Performing | Address | City/State/Zipcode | Phone Number | | Organization | | | | + + + + + | [facility] | [address] | [place] [address] | [phone] | + + + + + Basic [...] | >60Comment: GFR <60: | >60 | [facility] | | | GFR | CHRONIC [...] | | | | | performed at [facility];[address] | | | | | | [facility];[place], [place] | | | | | | [address] | | | | + + + + + + + + | Specimen | + + | Blood | + + + + + + + | Performing | Address | City/State/Zipcode | Phone Number | | Organization | | | | + + + + + | [facility] | [address] | [place] [address] | [phone] | + + + + + POC [...] Testing | 65 - 99 mg/dL | [facility] | | | POC | performed at [facility];[address] | | LABORATORY | | | | [address];[place] | | | | | | [address] | | | | + + + + + + + + | Specimen | + + | | + + + + + + + | Performing | Address | City/State/Zipcode | Phone Number | | Organization | | | | + + + + + | [facility] | [address] | [place] [address] | [phone] | + + + + + Surgical [...] [id number]). As part of | | | [facility]' Quality Improvement Program, this case was | [...] | | | surfaceis barker-yellow and lobulated. Leaflet Or Newspaper Deliverer sections are | | | submitted in [...] | cut surface is barker-yellow and lobulated. Leaflet Or Newspaper Deliverer sections are | | | submitted incassette [...] | LABORATORY:The technical component was performed by [facility] | | | [facility], [address] [place] [address] (Athletic Team Physician: | | | Yenny Young MD; CLIA# [id number]). Professional interpretation was | | | [facility] | | | [address] (Athletic Team Physician: Kenyon | | | Celine Delacruz; CLIA#: [id number]). Diagnostician: Nicanor Elias | | | DOPathologistElectronically [...] | |The technical component was performed by [facility], [address] [place] [address] (Athletic Team Physician: Yenny Young MD; CLIA# [id number]). Professional interpretation was performed by | | |[facility], [address] [place], [place] [address] (Athletic Team Physician: Kenyon Delacruz M.D.; CLIA#: [id number]). | | | | | |Diagnostician: Nicanor [...] | | [facility] | | | | [facility];[address] | | LABORATORY | | | | [address];[place] [address] | | | | + + + + + + + + | Specimen | + + | Blood | + + + + + + + | Performing | Address | City/State/Zipcode | Phone Number | | Organization | | | | + + + + + | [facility] | [address] | [place] [address] | [phone] | + + + + + Iron [...] | | | | | | [place] [address] | | | | + + + + + + + + | Specimen | + + | Blood | + + + + + + + | Performing | Address | City/State/Zipcode | Phone Number | | Organization | | | | + + + + + | [facility] | [address] | [place] [address] | [phone] | + + + + + Protime [...] | | | | | performed at [facility] | | | | | | [address];[place], [place] | | | | | | [address] | | | | + + + + + + + + | Specimen | + + | Blood | + + + + + + + | Performing | Address | City/State/Zipcode | Phone Number | | Organization | | | | + + + + + | [facility] | [address] | [place] [address] | [phone] | + + + + + CBC [...] | | | | | [place] [address] | | | | + + + + + + + + | Specimen | + + | Blood | + + + + + + + | Performing | Address | City/State/Zipcode | Phone Number | | Organization | | | | + + + + + | [facility] | [address] | [place] [address] | [phone] | + + + + + Ferritin (08/26/2019 4:25 AM PST) + + + + + + | Component | Value | Ref Range | Performed | Pathologist | | | | | At | Signature | + + + + + + | Ferritin | 144Comment: Testing | 11 - 450 ng/mL | [facility] | | | | performed at [facility], [address] | | LABORATORY | | | | [address], | | | | | | [place] [address] | | | | + + + + + + + + | Specimen | + + | Blood | + + + + + + + | Performing | Address | City/State/Zipcode | Phone Number | | Organization | | | | + + + + + | [facility] | [address] | [place] [address] | [phone] | + + + + + Urinalysis [...] - 1.030 | [facility] | | | [place], | | | LABORATORY | | | [...] | | LABORATORY | | | | [facility];[address];[place] [address] | | | | + + + [...] | + + + + + | [facility] | [address] | [place] [address] | [phone] | + + + + + from [...] +--------+ +---------+--------+ | MEDICARE | MEDICA | [id number] | 04/03/20 | [phone] | | Medica | | | RE | | 14-Pre | 5 | | re | | | PART A | | sent | | | | | | AND B | | | | | | + +--------+ +--------+ +---------+--------+ | [facility] | IHS | | Effect | | | Indemn | | SERVICE | YELLOW | | bree | | | ity | | | [place] | | for | | | | | | | | all | | | | | | | | dates | | | | + +--------+ +--------+ +---------+--------+ | [facility] | IHS | [id number] | 10/04/19 | | | Indemn | | SERVICE | YELLOW | | 19-Pre | | | ity | | | HAWK | | sent | | | | + +--------+ +--------+ +---------+--------+ | MEDICARE | MEDICA | [id number] | 04/03/20 | [phone] | | Medica [...] Person | Self | [birth year] | | [address] | | | al/Fam | | 1941 | [phone] | [place] [address] | | | tunde | | | 9 (Home) | | + +--------+ +--------+ + + | Kris Delgado | Person | Self | [birth year] | | [address] | | | al/Fam | | 1941 | [phone] | [place] [address] | | | tunde | | | 9 (Home) | | + +--------+ +--------+ + + Advance Directives + + + + + | Type | Date Recorded | Patient | Explanation | | | | Leaflet Or Newspaper Deliverer | | + + + + + | Power of | | | | | Culinary Specialist | | | | + + + [...]
--- OUTSIDE RECORDS SUMMARY | ~2019-09-03 | XMS | Encounter Summary ---
Demographics + + + | Address | [address] | | | [place] [address] | + + + | Home Phone [...] Team Providers + +------+ + | Care Vendor Quality Supervisor Name | Role | Phone | + +------+ + | Lizette Martinez | PCP | | + +------+ + Encounter Details +--------+ + + + + | Date | Type | Department | Care Team | Description | +--------+ + + + + | 08/26/ | Hospital | [facility] | [place], | | | 2018 | Encounter | [facility] | [address] | | | | | [address] | [address] | | | | | [address] | [place] [address] | | | | | [place], [place] | [phone] | | | | | [address] | | | | | | [phone] | | | +--------+ + + + [...]
--- OUTSIDE RECORDS SUMMARY | ~2019-09-03 | XMS | Encounter Summary ---
Demographics + + + | Address | [address] | | | [place] [address] | + + + | Home Phone | | + + + | Preferred Language | Unknown | + + + | Marital Status | | + + + | Yazdanism Affiliation | Unknown | + + + | Race | Unknown | + + + | Ethnic Group | Unknown | + + + Author + + + | Author | [facility] | | | and [place] | + + + | Organization | [facility] | | | [...] Team Providers + +------+ + | Care Waxer Operator Name | Role | Phone | + +------+ + | Lizette Martinez | PCP | | + +------+ + Reason for Visit + + + | Reason | Comments | + + + | Rectal Problems | metastatic rectal ca with rectal obstruction. Dr. Tyosn | | | requests admission to hospitalist [...] + + | 08/26/ | Surgery | [facility] | Phong Tyson, | LAPAROSCOPIC | | 2019 | | [facility] | [address] | COLOSTOMY CREATION | | | | OPERATING RO[address] | [address] | | | | | [address] | [place] [address] | | | | | [place], [place] | [phone] | | | | | [address] | | | | | | [phone] | | | +--------+---------+ + + + [...] Barker MD - 08/30/2019 2:35 PM PST [facility]: Hospitalist Physician Discharge Summary Patient ID: Kris WALKERN: [id number] 1940 78 y.o. Admit date: 08/25/2019 Discharge date: 08/30/2019 Admitting Physician: Errol Mart MD Discharge Physician: Jasmin Barker MD Consultants: Treatment Team: Phong Tyson MD Primary Discharge Diagnoses: Principal Problem: Rectal mass Active Problems: Hypertension Hyperlipidemia Anemia Colorectal tumor Rectal obstruction HPI and Hospital Course: Mr. Dlegado is a 78 yr old man with [...] SNF placemen t. He was accepted at [facility]. Referral to a local oncologist was sent. He will follow up with surgery in 2 weeks. Past Medical History: Past Medical History: Diagnosis Date Hyperlipidemia Hypertension 2004 Tobacco abuse Past Surgical History: Procedure Laterality Date COLOSTOMY N/A 08/26/2019 Procedure: LAPAROSCOPIC COLOSTOMY CREATION; Surgeon: Phong Tyson MD; [place] [facility] OTHER SURGICAL HISTORY Left 1985 ORIF ANKLE FRACTURE OTHER SURGICAL HISTORY Bilateral 2017 CATARACT EXTRACTION SIGMOIDOSCOPY N/A 08/26/2019 Procedure: SIGMOIDOSCOPY FLEXIBLE; Surgeon: Phong Tyson MD; [place] [facility] Discharged Condition: Stable for discharge [...] input(s): ABG Disposition: Follow up: GRIFFIN [facility] [address] [facility] [address] Go on 09/11/2019 You have an appointment at 0930 on 09/11/2019 with Lizette MOYA [address] [address] Phong Tyson MD [address] [place] [address] Schedule an appointment as soon as possible [...] and locked position. End of shift review paras yi. Yaquelin Smith RN 08/30/19 5:24 AM Soledad Gonzalez RN - 08/29/2019 2:04 PM PST [facility]: Ostomy Care Consult Note Hospital Day: 4 SUBJECTIVE Patient Summary: Ostomy nurse in for continued teaching. Family at bedside. 08/29/19 1357 Visit Information Visit Type Initial ostomy/fistula assessement Colostomy 08/26/19 130 left Placement Date/Time: 08/26/19 130 Location: left [...] of appliance change. Plan is to return tasiawylisbeth for return demo. Patient receives his healthcare through the [facility]. CM has c ontacted patient's PCP and they will work with DME to get his ostomy supplies. Ostomy RX fo rm filled out with patient's specific ostomy appliances and CM has faxed this to the PCP. P joey is to provide patient with enough pouching supplies to last 2 weeks (until his post-op a ppointment) [facility] starter kit ordered with pt's permission # [id number] Thank you for allowing me to participate in the care of this patient. Soledad Berger RN, CWON 08/29/2019 14:04 Jasmin Herrmann MD - 08/29/2019 1:18 PM PSTFormatting of this note might be different from the or iginal. [facility]: Hospitalist Progress Note Hospital Day: [...] Delgado 78 y.o. 1940 Med. Record Number: [id number] Date of admission: 08/25/2019 Service(s): Colorectal Surgery [...] nursing note reviewed. Exam conducted with a pattern and chain maker present. Cardiovascular: Rate and Rhythm: Normal rate. [...] with heme/onc, either Dr Malik here in [facility] or supposedly there is a heme/onc Dr in the [facility] (where they live). HTN BP's remain [...] BMI 28.00 kg/m Physical exam: AOx3 NAD [place] Heart RRR Lungs CTa Abd SNTND +BS Ostomy has stool output Giuliano Villaseñor DO 08/28/2019 2:50 PM Sree Smith ARN P - 08/28/2019 8:17 AM PST Colorectal Surgery Progress Note Pt. Name/Age/: Kris Delgado 78 y.o. 1940 Med. Record Number: [id number] Date of admission: 08/25/2019 Service(s): Colorectal Surgery [...] nursing note reviewed. Exam conducted with a pattern and chain maker present. Cardiovascular: Rate and Rhythm: Normal rate. [...] Encourage ambulation 2. General diet ok 3. index clerk consult and teaching AARON Bull 11:50 AM; 08/28/2019 Ayde Randall RN - 08/28/2019 7:53 AM PSTPt refusing chas evansjohnsondee, family and pt educated on q 2 [...] BMI 28.00 kg/m Physical exam: NAD AOx3 [place] Heart RRR Lungs CTA Abd SNTND +BS few Giuliano Villaseñor DO 08/27/2019 8:29 AM Donna Stanton RN - 1 10/26/2018 6:17 PM PSTPatient consuming coffee, tea and IMPACT. iuliano Villaseñor DO - 08/26/2019 3:31 PM PST PROGRESS [...] BMI 28.00 kg/m Physical exam: AOx3 NAD [place] Heart RRR Lungs CTA Abd SNTND ostomy [...] Larsen RN 08/26/19 @7:47 AM Valentín Navarro [facility] - 08/25/2019 7:41 PM PSTRx Admission Medication History Note I have reviewed the medication history for appropriate doses obtained by: ED Pharmacist After reviewing the home medication list : I agree with the home medications list. Confirmed HARDWARE TRAINER medications with patient and insurance fill history. Adjusted HARDWARE TRAINER medications according to the marine electronics technician note below. - removed lopermaide. Per family took one time and did not help, so patient is not taking. - last took all medications 08/21/19. - added daily multivitamin. Please Review and Order Home Medications as necessary. Thanks BRAYDEN MARION, Rosita 08/25/2019 7:39 PM documented in t his encounter Plan of Treatment + +---------+--------+ + + | Name | Type | Priori | Associated Diagnoses | Date/Time | | | | ty | | | + +---------+--------+ + + | ED INFORMATION | EUGENE | Routin | | 08/25/2019 4:36 PM | | EXCHANGE | | e | | PST | + +---------+--------+ + + | STORED IMAGE GENERAL | Imaging | Routin | | 08/26/2019 12:03 PM | | SURGERY | | e | | PST | + +---------+--------+ + + + +---------+--------+ + + | Name | Type | Priori | Associated Diagnoses | Order Schedule | | | | ty | | | + +---------+--------+ + + | STORED IMAGE GENERAL | Imaging | Routin | | One time imaging One | | SURGERY | | e | | time imaging for 1 | | | | | | Occurrences starting | | | | | | 08/26/2019 until | | | | | | 08/26/2019 | + +---------+--------+ + + documented as [...] J?MRN: | | | | | | [id number] | | | [id number] | | | riteri | | | [...] | | | St. | | | [place] | | | y | | | [...] | | | St. | | | [place] | | | y H. | | [...] | | | St. | | | [place] | | | y H. | | [...] | | | 1-103a | | | [id number] | | | 41 | | | [...] | >60Comment: GFR <60: | >60 | [facility] | | | GFR | CHRONIC [...] | | | | | | MDRD [facility] traceable | | | | | | equation.Testing | | | | | | performed at [facility], [address] | | | | | | [facility], | | | | | | [place] [address] | | | | + + + + + + + + | Specimen | + + | Blood | + + + + + + + | Performing | Address | City/State/Zipcode | Phone Number | | Organization | | | | + + + + + | [facility] | [address] | [place] [address] | [phone] | + + + + + CBC [...] 0.04Comment: Testing | 0.00 - 0.10 | [facility] | | | Absolute | performed at [facility], [address] | K[address]uL | LABORATORY | | | | [address], | | | | | | [place] [address] | | | | + + + + + + + + | Specimen | + + | Blood | + + + + + + + | Performing | Address | City/State/Zipcode | Phone Number | | Organization | | | | + + + + + | [facility] | [address] | [place] [address] | [phone] | + + + + + Phosphorus (08/29/2019 4:53 AM PST) + + + + + + | Component | Value | Ref Range | Performed | Pathologist | | | | | At | Signature | + + + + + + | Phosphorus | 3.0Comment: Testing | 2.3 - 4.8 mg/dL | [facility] | | | | performed at [facility] | | LABORATORY | | | | [address];[place], [place] | | | | | | [address] | | | | + + + + + + + + | Specimen | + + | Blood | + + + + + + + | Performing | Address | City/State/Zipcode | Phone Number | | Organization | | | | + + + + + | [facility] | [address] | [place] [address] | [phone] | + + + + + Magnesium (08/29/2019 4:53 AM PST) + + + + + + | Component | Value | Ref Range | Performed | Pathologist | | | | | At | Signature | + + + + + + | Magnesium | 1.7Comment: Testing | 1.7 - 2.4 mg/dL | [facility] | | | | performed at [facility];[address] | | LABORATORY | | | | [address];[place], [place] | | | | | | [address] | | | | + + + + + + + + | Specimen | + + | Blood | + + + + + + + | Performing | Address | City/State/Zipcode | Phone Number | | Organization | | | | + + + + + | [facility] | [address] [facility] | [place] [address] | [phone] | + + + + + Basic [...] | | | | | performed at [facility];[address] | | | | | | [address];[place], [place] | | | | | | [address] | | | | + + + + + + + + | Specimen | + + | Blood | + + + + + + + | Performing | Address | City/State/Zipcode | Phone Number | | Organization | | | | + + + + + | [facility] | [address] | [place] [address] | [phone] | + + + + + CBC [...] | | | Absolute | performed at [facility];[address] | [address] | LABORATORY | | | | [address];[place] | | | | | | [address] | | | | + + + + + + + + | Specimen | + + | Blood | + + + + + + + | Performing | Address | City/State/Zipcode | Phone Number | | Organization | | | | + + + + + | [facility] | [address] | [place] [address] | [phone] | + + + + + POC [...] | | | POC | performed at [facility];[address] | | LABORATORY | | | | [address];[place], [place] | | | | | | [address] | | | | + + + + + + + + | Specimen | + + | | + + + + + + + | Performing | Address | City/State/Zipcode | Phone Number | | Organization | | | | + + + + + | [facility] | [address] | [place] [address] | [phone] | + + + + + POC [...] | | | POC | performed at [facility];[address] | | LABORATORY | | | | [address];[place], [place] | | | | | | [address] | | | | + + + + + + + + | Specimen | + + | | + + + + + + + | Performing | Address | City/State/Zipcode | Phone Number | | Organization | | | | + + + + + | [facility] | [address] | [place] [address] | [phone] | + + + + + POC Glucose (08/28/2019 8:48 AM PST) + + + + + + | Component | Value | Ref Range | Performed | Pathologist | | | | | At | Signature | + + + + + + | Glucose, | 98Comment: Testing | 65 - 99 mg/dL | [facility] | | | POC | performed at [facility];[address] | | LABORATORY | | | | [address];[place] | | | | | | [address] | | | | + + + + + + + + | Specimen | + + | | + + + + + + + | Performing | Address | City/State/Zipcode | Phone Number | | Organization | | | | + + + + + | [facility] | [address] | [place] [address] | [phone] | + + + + + Phosphorus (08/28/2019 4:18 AM PST) + + + + + + | Component | Value | Ref Range | Performed | Pathologist | | | | | At | Signature | + + + + + + | Phosphorus | 2.1 (L)Comment: Testing | 2.3 - 4.8 mg/dL | [facility] | | | | performed at [facility], [address] | | LABORATORY | | | | [address], | | | | | | [place] [address] | | | | + + + + + + + + | Specimen | + + | Blood | + + + + + + + | Performing | Address | City/State/Zipcode | Phone Number | | Organization | | | | + + + + + | [facility] | [address] | [place] [address] | [phone] | + + + + + Magnesium (08/28/2019 4:18 AM PST) + + + + + + | Component | Value | Ref Range | Performed | Pathologist | | | | | At | Signature | + + + + + + | Magnesium | 2.0Comment: Testing | 1.7 - 2.4 mg/dL | [facility] | | | | performed at [facility], [address] | | LABORATORY | | | | [address], | | | | | | [place] [address] | | | | + + + + + + + + | Specimen | + + | Blood | + + + + + + + | Performing | Address | City/State/Zipcode | Phone Number | | Organization | | | | + + + + + | [facility] | [address] | [place] [address] | [phone] | + + + + + Basic [...] | >60Comment: GFR <60: | >60 | [facility] | | | GFR | CHRONIC [...] | | | | performed at [facility], [address] | | | | | | [facility], | | | | | | [place] [address] | | | | + + + + + + + + | Specimen | + + | Blood | + + + + + + + | Performing | Address | City/State/Zipcode | Phone Number | | Organization | | | | + + + + + | [facility] | [address] | [place] [address] | [phone] | + + + + + CBC [...] | | Absolute | performed at [facility], [address] | K/uL | LABORATORY | | | | [address], | | | | | | [place] [address] | | | | + + + + + + + + | Specimen | + + | Blood | + + + + + + + | Performing | Address | City/State/Zipcode | Phone Number | | Organization | | | | + + + + + | [facility] | [address] | [place] [address] | [phone] | + + + + + POC [...] | | | POC | performed at [facility];[address] | | LABORATORY | | | | [address];[place] | | | | | | [address] | | | | + + + + + + + + | Specimen | + + | | + + + + + + + | Performing | Address | City/State/Zipcode | Phone Number | | Organization | | | | + + + + + | [facility] | [address] | [place] [address] | [phone] | + + + + + POC Glucose (08/27/2019 12:05 PM PST) + + + + + + | Component | Value | Ref Range | Performed | Pathologist | | | | | At | Signature | + + + + + + | Glucose, | 99Comment: Testing | 65 - 99 mg/dL | [facility] | | | POC | performed at [facility];[address] | | LABORATORY | | | | [address];[place], [place] | | | | | | [address] | | | | + + + + + + + + | Specimen | + + | | + + + + + + + | Performing | Address | City/State/Zipcode | Phone Number | | Organization | | | | + + + + + | [facility] | [address] | [place] [address] | [phone] | + + + + + POC Glucose (08/27/2019 8:01 AM PST) + + + + + + | Component | Value | Ref Range | Performed | Pathologist | | | | | At | Signature | + + + + + + | Glucose, | 85Comment: Testing | 65 - 99 mg/dL | [facility] | | | POC | performed at [facility];[address] | | LABORATORY | | | | [address];[place], [place] | | | | | | [address] | | | | + + + + + + + + | Specimen | + + | | + + + + + + + | Performing | Address | City/State/Zipcode | Phone Number | | Organization | | | | + + + + + | [facility] | [address] | [place] [address] | [phone] | + + + + + Phosphorus (08/27/2019 5:10 AM PST) + + + + + + | Component | Value | Ref Range | Performed | Pathologist | | | | | At | Signature | + + + + + + | Phosphorus | 3.8Comment: Testing | 2.3 - 4.8 mg/dL | [facility] | | | | performed at [facility], [address] | | LABORATORY | | | | [address], | | | | | | [place] [address] | | | | + + + + + + + + | Specimen | + + | Blood | + + + + + + + | Performing | Address | City/State/Zipcode | Phone Number | | Organization | | | | + + + + + | [facility] | [address] | [place] [address] | [phone] | + + + + + Magnesium (08/27/2019 5:10 AM PST) + + + + + + | Component | Value | Ref Range | Performed | Pathologist | | | | | At | Signature | + + + + + + | Magnesium | 2.2Comment: Testing | 1.7 - 2.4 mg/dL | [facility] | | | | performed at [facility], [address] | | LABORATORY | | | | [address], | | | | | | [place] [address] | | | | + + + + + + + + | Specimen | + + | Blood | + + + + + + + | Performing | Address | City/State/Zipcode | Phone Number | | Organization | | | | + + + + + | [facility] | [address] | [place] [address] | [phone] | + + + + + Basic [...] | | | | performed at [facility], [address] | | | | | | [address], | | | | | | [place] [address] | | | | + + + + + + + + | Specimen | + + | Blood | + + + + + + + | Performing | Address | City/State/Zipcode | Phone Number | | Organization | | | | + + + + + | [facility] | [address] | [place] [address] | [phone] | + + + + + CBC [...] | | | | | | [facility], [address] [facility] | | | | | | [place] | | | | | | [address] | | | | + + + + + + + + | Specimen | + + | Blood | + + + + + + + | Performing | Address | City/State/Zipcode | Phone Number | | Organization | | | | + + + + + | [facility] | [address] | [place] [address] | [phone] | + + + + + POC Glucose (08/27/2019 4:06 AM PST) + + + + + + | Component | Value | Ref Range | Performed | Pathologist | | | | | At | Signature | + + + + + + | Glucose, | 81Comment: Testing | 65 - 99 mg/dL | [facility] | | | POC | performed at [facility];[address] | | LABORATORY | | | | [address];[place], [place] | | | | | | [address] | | | | + + + + + + + + | Specimen | + + | | + + + + + + + | Performing | Address | City/State/Zipcode | Phone Number | | Organization | | | | + + + + + | [facility] | [address] | [place] [address] | [phone] | + + + + + POC [...] | | | POC | performed at [facility];[address] | | LABORATORY | | | | [address];[place], [place] | | | | | | [address] | | | | + + + + + + + + | Specimen | + + | | + + + + + + + | Performing | Address | City/State/Zipcode | Phone Number | | Organization | | | | + + + + + | [facility] | [address] | [place] [address] | [phone] | + + + + + Surgical [...] | | colonicadenocarcinoma of the rectum (see [id number]). As part of | | | [facility]' Quality Improvement Program, this case was | [...] | | | surfaceis barker-yellow and lobulated. Mechanical Engineer sections are | | | submitted in [...] | cut surface is barker-yellow and lobulated. Mechanical Engineer sections are | | | submitted incassette [...] | LABORATORY:The technical component was performed by [facility] | | | [facility], [address] [place] [address] (Transportation Solutions Manager: | | | Yenny Young MD; CLIA# [id number]). Professional interpretation was | | | performed by[facility], [facility] | | | [place] [address] (Transportation Solutions Manager: Kenyon | | | Celine Delacruz; CLIA#: [id number]). Diagnostician: Nicanor Elias | | | DOPathologistElectronically [...] | |The technical component was performed by [facility], [address] [place] [address] (Transportation Solutions Manager: Yenny Young MD; CLIA# [id number]). Professional interpretation [facility] by | | [facility], [address] [place] [id number] (Transportation Solutions Manager: Kenyon Delacruz M.D.; CLIA#: [id number]). | | | | | |Diagnostician: Nicanor [...] Procedure Note | + + | Evens, Adal Results In - 08/26/2019 6:38 AM PST [...] BAND | Testing performed at | | [facility] | | | | [facility];[address] | LABORAT[address] | | | | [address];[place] [address] | | | | + + + + + + + + | Specimen | + + | Blood | + + + + + + + | Performing | Address | City/State/Zipcode | Phone Number | | Organization | | | | + + + + + | [facility] | [address] | [place] [address] | [phone] | + + + + + Protime [...] | | | | | performed at [facility] | | | | | | [facility];[place], [place] | | | | | | [address] | | | | + + + + + + + + | Specimen | + + | Blood | + + + + + + + | Performing | Address | City/State/Zipcode | Phone Number | | Organization | | | | + + + + + | [facility] | [address] | [place] [address] | [phone] | + + + + + Ferritin (08/26/2019 4:25 AM PST) + + + + + + | Component | Value | Ref Range | Performed | Pathologist | | | | | At | Signature | + + + + + + | Ferritin | 144Comment: Testing | 11 - 450 ng/mL | [facility] | | | | performed at [facility], [address] | | LABORATORY | | | | [address], | | | | | | [place] [address] | | | | + + + + + + + + | Specimen | + + | Blood | + + + + + + + | Performing | Address | City/State/Zipcode | Phone Number | | Organization | | | | + + + + + | [facility] | [address] | [place] [address] | [phone] | + + + + + Iron [...] | | | | | [place] [address] | | | | + + + + + + + + | Specimen | + + | Blood | + + + + + + + | Performing | Address | City/State/Zipcode | Phone Number | | Organization | | | | + + + + + | [facility] | [address] | [place] [address] | [phone] | + + + + + CBC [...] [facility] | | | | performed at [facility], [address] | | LABORATORY | | | | [address], | | | | | | [place] [address] | | | | + + + + + + + + | Specimen | + + | Blood | + + + + + + + | Performing | Address | City/State/Zipcode | Phone Number | | Organization | | | | + + + + + | [facility] | [address] | [place] [address] | [phone] | + + + + + Basic [...] | | | | performed at [facility], [address] | | | | | | [address], | | | | | | [place] [address] | | | | + + + + + + + + | Specimen | + + | Blood | + + + + + + + | Performing | Address | City/State/Zipcode | Phone Number | | Organization | | | | + + + + + | [facility] | [address] | [place] [address] | [phone] | + + + + + Urinalysis [...] - 1.030 | [facility] | | | [place], | | | LABORATORY | | | [...] | | LABORATORY | | | | [facility];[address] [place] [address] | | | | | | [place] [address] | | | | + + + [...] | + + + + + | [facility] | [address] | [place] [address] | [phone] | + + + + + Comprehensive [...] | | | | | performed at [facility];[address] | | | | | | [address];[place], [place] | | | | | | [address] | | | | + + + + + + + + | Specimen | + + | Blood | + + + + + + + | Performing | Address | City/State/[facility] | Phone Number | | Organization | | | | + + + + + | [facility] | [address] | [place] [address] | [phone] | + + + + + CBC [...] | | | Absolute | performed at [facility];[address] | [address] | LABORATORY | | | | [address];[place], [place] | | | | | | [address] | | | | + + + + + + + + | Specimen | + + | Blood | + + + + + + + | Performing | Address | City/State/Zipcode | Phone Number | | Organization | | | | + + + + + | [facility] | [address] | [place] [address] | [phone] | + + + + + documented [...] ringers (LR) infusion | New Bag | 11/27/20 | | 50 mL/hr | | | [...]
--- OUTSIDE RECORDS SUMMARY | ~2019-09-03 | XMS | Encounter Summary ---
Demographics + + + | Address | [address] | | | [place] [address] | + + + | Home Phone | | + + + | Preferred Language | Unknown | + + + | Marital Status | | + + + | Episcopal Affiliation | Unknown | + + + | Race | Unknown | + + + | Ethnic Group | Unknown | + + + Author + + + | Author | [facility] | | | and [place] | + + + | Organization | [facility] | | | [...] Team Providers + +------+ + | Care Carbonizer Tester Name | Role | Phone | + [...] [place] | | | | | | [address] | | | | | | [phone] | | | +--------+ + + + [...] 0.67 m/s MV | | | Dec Mason: 1.81 m/s2 MV DecT: 317.65 ms MV E Emanuel: 0.57 m/s | | | MV E/A Ratio: 0.85 E/E' Sept: 11.69 E' Lat: 0.08 m/s E' | | | Sept: 0.04 m/s RAP: 5 mmHg RV S': 0.12 m/s RVSP: 25.91 | | | mmHg TR maxP.91 mmHg TR Vmax: 2.28 m/s Floating Operator: | | | Authenticated by: Cici Abraham [...] mlLAESV Index (A-L): 24.25 ml/m2LAAs A2C: 14.49 [id number] A-L A2C: 33.91 | | mlLAESV MOD A2C: 32.12 mlLALs A2C: 5.25 cmLAAs A4C: 19.79 [id number] A-L A4C: | | 58.12 mlLAESV MOD A4C: 57.48 mlLALs A4C: 5.72 cmRAAs: 18.17 [id number] A-L: 49.96 | | mlRAESV MOD: 49.15 mlRALs: 5.60 cmTAPSE: 2.19 cmAV Env.Ti: 293.90 msAV maxPG: | | 4.91 mmHgAV meanP.41 mmHgAV Vmax: 1.10 m/Milton Vmean: 0.72 m/Milton VTI: 21.23 | | cmAVA Vmax: 3.17 cm2AVA (VTI): 3.89 [id number] Vmax: 0.00 cm2/m2AVAI (VTI): 0.00 | | cm2/m2LVOT Env.Ti: 360.44 msLVOT maxP.14 mmHgLVOT meanP.50 mmHgLVSI Dopp: | | 43.29 ml/m2LVSV Dopp: 82.69 mlLVOT Vmax: 0.88 m/sLVOT Vmean: 0.57 m/sLVOT VTI: | | 20.85 cmMV A Emanuel: 0.67 m/sMV Dec Mason: 1.81 m/s2MV DecT: 317.65 msMV E Emanuel: | | 0.57 m/sMV E/A Ratio: 0.85E/E' Sept: 11.69E' Lat: 0.08 m/sE' Sept: 0.04 m/sRAP: | | 5 mmHgRV S': 0.12 m/sRVSP: 25.91 mmHgTR maxP.91 mmHgTR Vmax: 2.28 m/s | | Floating Operator:Authenticated by: Cici Robles Date/Time: 02-21-2019 19:5:14 | [...] A Emanuel: 0.67 m/s | |MV Dec Mason: 1.81 m/s2 | |MV DecT: 317.65 ms | |MV E Emanuel: 0.57 m/s | |MV E/A Ratio: 0.85 | |E/E' Sept: 11.69 | |E' Lat: 0.08 m/s | |E' Sept: 0.04 m/s | |RAP: 5 mmHg | |RV S': 0.12 m/s | |RVSP: 25.91 mmHg | |TR maxP.91 mmHg | |TR Vmax: 2.28 m/s | | | |Floating Operator: | |Authenticated by: Cici Abraham | |Report [...]
--- OUTSIDE RECORDS SUMMARY | ~2019-09-03 | XMS | Encounter Summary ---
Demographics + + + | Address | [address] | | | [place] [address] | + + + | Home Phone | | + + + | Preferred Language | Unknown | + + + | Marital Status | | + + + | Rastafari Affiliation | Unknown | + + + | Race | Unknown | + + + | Ethnic Group | Unknown | + + + Author + + + | Author | [facility] | | | and [place] | + + + | Organization | [facility] | | | [...] Team Providers + +------+ + | Care Color Weigher Name | Role | Phone | + [...] + + | 08/25/ | Hospital | [facility] | Enio Lange, | Colorectal tumor | | 2019 - | Encounter | [facility] [address] | MD [address] | (Primary Dx); Rectal | | | | [address] | [place] [address] | obstruction; | | 08/30/ | | [place], [place] | [phone] | Colorectal tumor; | | 2019 | | [id number] | | Rectal obstruction; | | | | [phone] | Errol Mart MD | Anemia, unspecified | | | | | [address] | type; Essential | | | | | [place] [address] | hypertension | | | | | [phone] | | | | | | | | | | | | Giuliano Villaseñor, | | | | | | [address] | | | | | | [address] | | | | | | [place] [address] | | | | | | [phone] | | | | | | | | | | | | Jasmin Barker MD | | | | | | [address] | | | | | | [place] [address] | | | | | | [phone] | | | | | | | [...] Barker MD - 08/30/2019 2:35 PM PST [facility] Service: Hospitalist Physician Discharge Summary Patient ID: [...] a rolling walker. He agreed for [facility] placemen t. He was accepted at [place]. Referral to a local oncologist was sent. He will follow up with surgery in 2 weeks. Past Medical History: Past Medical History: Diagnosis Date Hyperlipidemia Hypertension 2004 Tobacco abuse Past Surgical History: Procedure Laterality Date COLOSTOMY N/A 08/26/2019 Procedure: LAPAROSCOPIC COLOSTOMY CREATION; Surgeon: Phong Tyson MD; Location: [facility] MAIN OR OTHER SURGICAL HISTORY Left 1984 ORIF ANKLE FRACTURE OTHER SURGICAL HISTORY Bilateral 2016 CATARACT EXTRACTION SIGMOIDOSCOPY N/A 08/26/2019 Procedure: SIGMOIDOSCOPY FLEXIBLE; Surgeon: Phong Tyson MD; Location: [facility] MAIN OR Discharged Condition: Stable for discharge [...] input(s): ABG Disposition: Follow up: GRIFFIN Royal [address] [address] [facility] [address] Go on 09/11/2019 You have an appointment at 0930 on 09/11/2019 with Lizette MOYA [address] [id number] Phong Tyson MD [address] [place] [address] Schedule an appointment as soon as possible [...] Gonzalez RN - 08/29/2019 2:04 PM PST [facility] Service: Ostomy Care Consult Note Hospital Day: [...] is to return Shakeel manning for return demdane. Patient receives his healthcare [facility]. CM has c ontacted patient's PCP and they will work with DME to get his ostomy supplies. Ostomy RX fo rm filled out with patient's specific ostomy appliances and CM has faxed this to the PCP. P joey is to provide patient with enough pouching supplies to last 2 weeks (until his post-op a ppointment) [facility] starter kit ordered with pt's permission # [id number] Thank you for allowing me to participate in the care of this patient. Soledad Berger RN, CWON 08/29/2019 14:04 Jasmin Herrmann MD - 08/29/2019 1:18 PM PSTFormatting of this note might be different from the or iginal. [facility] Service: Hospitalist Progress Note Hospital Day: LOS: [...] tiny right pleural effusion. Signed by: Celine Watson Sadaf Sign Date/Time: 08/26/2019 6:35 AM PROBLEM LIST [...] Delgado 78 y.o. 1940 Med. Record Number: [id number] Date of admission: 08/25/2019 Service(s): Colorectal Surgery [...] nursing note reviewed. Exam conducted with a equipment operat0r present. Cardiovascular: Rate and Rhythm: Normal rate. [...] heme/onc Dr in the [facility] (where they live). HTN BP's remain low-normal [...] BMI 28.00 kg/m Physical exam: AOx3 NAD TOHONO O'ODHAM Heart RRR Lungs CTa Abd SNTND +BS Ostomy has stool output Giuliano Villaseñor DO 08/28/2019 2:50 PM Sree Smith ARN P - 08/28/2019 8:17 AM PST Colorectal Surgery Progress Note Pt. Name/Age/: Kris Delgado 78 y.o. 1940 Med. Record Number: [id number] Date of admission: 08/25/2019 Service(s): Colorectal Surgery [...] nursing note reviewed. Exam conducted with a equipment operat0r present. Cardiovascular: Rate and Rhythm: Normal rate. [...] person, place, and time. Labs: Recent Labs 08/28/1941708/27/19 0510 WBC 8.65 12.06* HGB 11.6* 12.1* HCT 34.1* 35.4* PLT 241 251 MCV 91.5 91.6 Recent Labs 08/28/1941708/27/19 0510 NA 142 140 K 4.1 4.2 [...] Encourage ambulation 2. General diet ok 3. deal architect consult and teaching AARON Bull 11:50 AM; [...] BMI 28.00 kg/m Physical exam: NAD AOx3 TOHONO O'[place] Heart RRR Lungs CTA Abd SNTND +BS few Giuliano Villaseñor DO 08/27/2019 8:29 AM Donna Stanton RN - 1 10/26/2018 6:17 PM PSTPatient consuming coffee, tea and IMPACT. Giuliano Peralta DO - 08/26/2019 3:31 PM PST PROGRESS NOTE for Kris Abbie Crystal on the hospitalist service. 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 Confirmed TICKET TAKER medications with patient and insurance fill history. Adjusted TICKET TAKER medications according to the construction services technician note below. - removed lopermaide. Per [...] J?MRN: | | | | | | [id number] | | | [id number] | | | riteri | | | [...] | | | St. | | | [place] | | | y | | | [...] | | | St. | | | [place] | | | y H. | | [...] | | | St. | | | [place] | | | y H. | | [...] | | | 1-103a | | | [id number] | | | 41 | | | [...] | | | | | | MDRD IDRI traceable | | | | | | equation.Testing | | | | | | performed at [facility], [address] | | | | | | [facility], | | | | | | [place] [address] | | | | + + + + + + + + | Specimen | + + | Blood | + + + + + + + | Performing | Address | City/State/Zipcode | Phone Number | | Organization | | | | + + + + + | [facility] | [address] | [place] [address] | [phone] | + + + + + CBC [...] | | | Absolute | performed at [facility], [address] | K/uL | LABORATORY | | | | [address], | | | | | | [place] [address] | | | | + + + + + + + + | Specimen | + + | Blood | + + + + + + + | Performing | Address | City/State/Zipcode | Phone Number | | Organization | | | | + + + + + | [facility] | [address] | [place] [address] | [phone] | + + + + + Phosphorus (08/29/2019 4:53 AM PST) + + + + + + | Component | Value | Ref Range | Performed | Pathologist | | | | | At | Signature | + + + + + + | Phosphorus | 3.0Comment: Testing | 2.3 - 4.8 mg/dL | [facility] | | | | performed at [facility];[address] | | LABORATORY | | | | [address];[place] | | | | | | [address] | | | | + + + + + + + + | Specimen | + + | Blood | + + + + + + + | Performing | Address | City/State/Zipcode | Phone Number | | Organization | | | | + + + + + | [facility] | [address] | [place] [address] | [phone] | + + + + + Magnesium (08/29/2019 4:53 AM PST) + + + + + + | Component | Value | Ref Range | Performed | Pathologist | | | | | At | Signature | + + + + + + | Magnesium | 1.7Comment: Testing | 1.7 - 2.4 mg/dL | [facility] | | | | performed at [facility] | | LABORATORY | | | | [address] [facility];[place], [place] | | | | | | [address] | | | | + + + + + + + + | Specimen | + + | Blood | + + + + + + + | Performing | Address | City/State/Zipcode | Phone Number | | Organization | | | | + + + + + | [facility] | [address] | [place] [address] | [phone] | + + + + + Basic [...] | | | | | | MDRD [facility] traceable | | | | | | equation.Testing | | | | | | performed at [facility];[address] | | | | | | [facility];[place], [place] | | | | | | [address] | | | | + + + + + + + + | Specimen | + + | Blood | + + + + + + + | Performing | Address | City/State/Zipcode | Phone Number | | Organization | | | | + + + + + | [facility] | [address] | [place] [address] | [phone] | + + + + + CBC [...] 0.03Comment: Testing | 0.00 - 0.10 | [facility] | | | Absolute | performed at [facility];[address] | [address] | LABORATORY | | | | [address];[place], [place] | | | | | | [address] | | | | + + + + + + + + | Specimen | + + | Blood | + + + + + + + | Performing | Address | City/State/Zipcode | Phone Number | | Organization | | | | + + + + + | [facility] | [address] | [place] [address] | [phone] | + + + + + POC [...] | | | POC | performed at [facility];[address] | | LABORATORY | | | | [address];[place], [place] | | | | | | [address] | | | | + + + + + + + + | Specimen | + + | | + + + + + + + | Performing | Address | City/State/Zipcode | Phone Number | | Organization | | | | + + + + + | [facility] | [address] | [place] [address] | [phone] | + + + + + POC [...] | | | POC | performed at [facility];[address] | | LABORATORY | | | | [address];[place], [place] | | | | | | [address] | | | | + + + + + + + + | Specimen | + + | | + + + + + + + | Performing | Address | City/State/Zipcode | Phone Number | | Organization | | | | + + + + + | [facility] | [address] | [place] [address] | [phone] | + + + + + POC [...] | | | POC | performed at [facility];[address] | | LABORATORY | | | | [address];[place] | | | | | | [address] | | | | + + + + + + + + | Specimen | + + | | + + + + + + + | Performing | Address | City/State/Zipcode | Phone Number | | Organization | | | | + + + + + | [facility] | [address] | [place] [address] | [phone] | + + + + + Phosphorus [...] | | LABORATORY | | | | [address], | | | | | | [place] [address] | | | | + + + + + + + + | Specimen | + + | Blood | + + + + + + + | Performing | Address | City/State/Zipcode | Phone Number | | Organization | | | | + + + + + | [facility] | [address] | [place] [address] | [phone] | + + + + + Magnesium [...] | LABORATORY | | | | [address], | | | | | | [place] [address] | | | | + + + + + + + + | Specimen | + + | Blood | + + + + + + + | Performing | Address | City/State/Zipcode | Phone Number | | Organization | | | | + + + + + | [facility] | [address] [facility] | [place] [address] | [phone] | + + + + + Basic [...] | | | | | performed at [facility], [address] | | | | | | [facility], | | | | | | [place] [address] | | | | + + + + + + + + | Specimen | + + | Blood | + + + + + + + | Performing | Address | City/State/Zipcode | Phone Number | | Organization | | | | + + + + + | [facility] | [address] | [place] [address] | [phone] | + + + + + CBC [...] | | | Absolute | performed at [facility], [address] | K/uL | LABORATORY | | | | [address], | | | | | | [place] [address] | | | | + + + + + + + + | Specimen | + + | Blood | + + + + + + + | Performing | Address | City/State/Zipcode | Phone Number | | Organization | | | | + + + + + | [facility] | [address] | [place] [address] | [phone] | + + + + + POC [...] | | | POC | performed at [facility];[address] | | LABORATORY | | | | [address];[place] | | | | | | [address] | | | | + + + + + + + + | Specimen | + + | | + + + + + + + | Performing | Address | City/State/Zipcode | Phone Number | | Organization | | | | + + + + + | [facility] | [address] | [place] [address] | [phone] | + + + + + POC Glucose (08/27/2019 12:05 PM PST) + + + + + + | Component | Value | Ref Range | Performed | Pathologist | | | | | At | Signature | + + + + + + | Glucose, | 99Comment: Testing | 65 - 99 mg/dL | [facility] | | | POC | performed at [facility];[address] | | LABORATORY | | | | [address];[place] | | | | | | [address] | | | | + + + + + + + + | Specimen | + + | | + + + + + + + | Performing | Address | City/State/Zipcode | Phone Number | | Organization | | | | + + + + + | [facility] | [address] | [place] [address] | [phone] | + + + + + POC Glucose (08/27/2019 8:01 AM PST) + + + + + + | Component | Value | Ref Range | Performed | Pathologist | | | | | At | Signature | + + + + + + | Glucose, | 85Comment: Testing | 65 - 99 mg/dL | [facility] | | | POC | performed at [facility];[address] | | LABORATORY | | | | [address];[place] | | | | | | [address] | | | | + + + + + + + + | Specimen | + + | | + + + + + + + | Performing | Address | City/State/Zipcode | Phone Number | | Organization | | | | + + + + + | [facility] | [address] | [place] [address] | [phone] | + + + + + Phosphorus (08/27/2019 5:10 AM PST) + + + + + + | Component | Value | Ref Range | Performed | Pathologist | | | | | At | Signature | + + + + + + | Phosphorus | 3.8Comment: Testing | 2.3 - 4.8 mg/dL | [facility] | | | | performed at [facility], [address] | | LABORATORY | | | | [address], | | | | | | [place] [address] | | | | + + + + + + + + | Specimen | + + | Blood | + + + + + + + | Performing | Address | City/State/Zipcode | Phone Number | | Organization | | | | + + + + + | [facility] | [address] | [place] [address] | [phone] | + + + + + Magnesium (08/27/2019 5:10 AM PST) + + + + + + | Component | Value | Ref Range | Performed | Pathologist | | | | | At | Signature | + + + + + + | Magnesium | 2.2Comment: Testing | 1.7 - 2.4 mg/dL | [facility] | | | | performed at [facility], [address] | | LABORATORY | | | | [address], | | | | | | [place] [address] | | | | + + + + + + + + | Specimen | + + | Blood | + + + + + + + | Performing | Address | City/State/Zipcode | Phone Number | | Organization | | | | + + + + + | [facility] | [address] | [place] [address] | [phone] | + + + + + Basic [...] | | | | | | MDRD [facility] traceable | | | | | | equation.Testing | | | | | | performed at [facility], [address] | | | | | | [facility], | | | | | | [place] [address] | | | | + + + + + + + + | Specimen | + + | Blood | + + + + + + + | Performing | Address | City/State/Zipcode | Phone Number | | Organization | | | | + + + + + | [facility] | [address] | [place] [address] | [phone] | + + + + + CBC [...] at | | | | | | [facility], [address] [facility] | | | | | | [place] | | | | | | [address] | | | | + + + + + + + + | Specimen | + + | Blood | + + + + + + + | Performing | Address | City/State/Zipcode | Phone Number | | Organization | | | | + + + + + | [facility] | [address] | [place] [address] | [phone] | + + + + + POC Glucose (08/27/2019 4:06 AM PST) + + + + + + | Component | Value | Ref Range | Performed | Pathologist | | | | | At | Signature | + + + + + + | Glucose, | 81Comment: Testing | 65 - 99 mg/dL | [facility] | | | POC | performed at [facility];[address] | | LABORATORY | | | | [address];[place], [place] | | | | | | [address] | | | | + + + + + + + + | Specimen | + + | | + + + + + + + | Performing | Address | City/State/Zipcode | Phone Number | | Organization | | | | + + + + + | [facility] | [address] | [place] [address] | [phone] | + + + + + POC [...] | | | POC | performed at [facility];[address] | | LABORATORY | | | | [address];[place] | | | | | | [address] | | | | + + + + + + + + | Specimen | + + | | + + + + + + + | Performing | Address | City/State/Zipcode | Phone Number | | Organization | | | | + + + + + | [facility] | [address] | [place] [address] | [phone] | + + + + + Surgical [...] [id number]). As part of | | | [employer]' Quality Improvement Program, this case was | [...] | | | surfaceis barker-yellow and lobulated. Music Intern sections are | | | submitted in [...] | cut surface is barker-yellow and lobulated. Music Intern sections are | | | submitted incassette [...] | LABORATORY:The technical component was performed by [email or web address] | | | [employer], [address] [place] [address] (Salesperson Neckties: | | | Yenny Young MD; CLIA# [id number]). Professional interpretation was | | | performed [facility], [address] | | | [place] [address] (Salesperson Neckties: Kenyon | | | Celine Delacruz; CLIA#: [id number]). Diagnostician: Nicanor Elias | | | DOPathologistElectronically [...] | |The technical component was performed by [employer], [address] [place] [address] (Salesperson Neckties: Yenny Young MD; CLIA# [id number]). Professional interpretation was performed by | | |[facility], [address] [place] [address] (Salesperson Neckties: Kenyon Delacruz M.D.; [facility]#: [id number]). | | | | | |Diagnostician: Nicanor [...] | | | Signed by: Celine Watson, Lin[place] | | Sign Date/Time: 08/26/2019 6:35 AM [...] | | LABORATORY | | | | [address];[place] [address] | | | | + + + + + + + + | Specimen | + + | Blood | + + + + + + + | Performing | Address | City/State/Zipcode | Phone Number | | Organization | | | | + + + + + | [facility] | [address] | [place] [address] | [phone] | + + + + + Protime INR (08/26/2019 4:25 AM PST) + + + + + + | Component | Value | Ref Range | Performed | Pathologist | | | | | At | Signature | + + + + + + | INR | 1.1Comment: REFERENCE | | [facility] | | | | RANGE:0.9 - [...] | | | | | performed at [facility];[address] | | | | | | [address];[place] | | | | | | [address] | | | | + + + + + + + + | Specimen | + + | Blood | + + + + + + + | Performing | Address | City/State/Zipcode | Phone Number | | Organization | | | | + + + + + | [facility] | [address] | [place] [address] | [phone] | + + + + + Ferritin (08/26/2019 4:25 AM PST) + + + + + + | Component | Value | Ref Range | Performed | Pathologist | | | | | At | Signature | + + + + + + | Ferritin | 144Comment: Testing | 11 - 450 ng/mL | [facility] | | | | performed at [facility], [address] | | LABORATORY | | | | [address], | | | | | | [place] [address] | | | | + + + + + + + + | Specimen | + + | Blood | + + + + + + + | Performing | Address | City/State/Zipcode | Phone Number | | Organization | | | | + + + + + | [facility] | [address] | [place] [address] | [phone] | + + + + + Iron [...] | | | Saturation | performed at [facility], [address] | | LABORATORY | | | | [address], | | | | | | [place] [address] | | | | + + + + + + + + | Specimen | + + | Blood | + + + + + + + | Performing | Address | City/State/Zipcode | Phone Number | | Organization | | | | + + + + + | [facility] | [address] | [place] [address] | [phone] | + + + + + CBC [...] [facility] | | | | performed at [facility], [address] | | LABORATORY | | | | [address], | | | | | | [place] [address] | | | | + + + + + + + + | Specimen | + + | Blood | + + + + + + + | Performing | Address | City/State/Zipcode | Phone Number | | Organization | | | | + + + + + | [facility] | [address] | [place] [address] | [phone] | + + + + + Basic [...] 7.8 (L) | 8.5 - 10.5 | [facility] [...] | | | | | | MDRD IDRI traceable | | | | | | equation.Testing | | | | | | performed at [facility], [address] | | | | | | [facility], | | | | | | [place] [address] | | | | + + + + + + + + | Specimen | + + | Blood | + + + + + + + | Performing | Address | City/State/Zipcode | Phone Number | | Organization | | | | + + + + + | [facility] | [address] | [place] [address] | [phone] | + + + + + Urinalysis With Microscopic (08/25/2019 6:39 PM PST) + + + + + + | Component | Value | Ref Range | Performed | Pathologist | | | | | At | Signature | + + + + + + | Color, UA | STRAW | | [facility] | | | | | | LABORATORY | | + + + + + + | Clarity, UA | CLEAR | | [facility] | | | | | | LABORATORY | | + + + + + + | Specific | 1.003 | 1.002 - 1.030 | [facility] | | | [place], | | | LABORATORY | | | [...] UA | NONE SEENComment: | NONE | [facility] | | | | Testing performed at | | LABORATORY | | | | [facility];[address] | | | [address];[place] [address] | | | | + + + [...] | [address] | [place] [address] | [phone] | + + + + + Comprehensive [...] | | | | | performed at [facility] | | | | | | [facility];[place], [place] | | | | | | [address] | | | | + + + + + + + + | Specimen | + + | Blood | + + + + + + + | Performing | Address | City/State/Zipcode | Phone Number | | Organization | | | | + + + + + | [facility] | [address] | [place] [address] | [phone] | + + + + + CBC [...] | | | Absolute | performed at [facility];[address] | K/uL | LABORATORY | | | | [address];[place] | | | | | | [address] | | | | + + + + + + + + | Specimen | + + | Blood | + + + + + + + | Performing | Address | City/State/Zipcode | Phone Number | | Organization | | | | + + + + + | [facility] | [address] | [place] [address] | [phone] | + + + + + documented [...] | | | | | | longer, zsjerz-xvu-lovag use of | | | | | [...] 19 7:18 | | | | | 11/22/19 at 1910, For 1 dose | | [...] AM PST | | | | | Wed08/25/19 at 2045 | | | | | [...]
--- OUTSIDE RECORDS SUMMARY | ~2019-09-03 | XMS | Encounter Summary ---
Demographics + + + | Address | [address] | | | [place] [address] | + + + | Home Phone | | + + + | Preferred Language | Unknown | + + + | Marital Status | | + + + | Buddhist Affiliation | Unknown | + + + | Race | Unknown | + + + | Ethnic Group | Unknown | + + + Author + + + | Author | [facility] | | | and [place] | + + + | Organization | [facility] | | | [...] Team Providers + +------+ + | Care Carbon Electrodes Supervisor Name | Role | Phone | [...] | | Family Nurse | Diagnoses | uJan, | Binta, | | | | Practitioner | nuc echo | GRIFFIN Bauer | Naina Strickland, | | | | / Cardiology | done sah | [id number] | [facility] | | | | | Procedures | SARAH BLACKMON | LISETH COLVIN | | | | | OFFICE VISIT | [place] | [place] | | | | | REGULAR | [place] [address] | [facility] | | | | | | Phone: | [phone] Phone: | | | | | | [phone] | [phone] | | | | | | Fax: | Fax: | | | | | | [phone] | [phone] | +--------+--------+ + + + + Encounter Details +--------+---------+ + + + | Date | Type | Department | Care Team | Description | +--------+---------+ + + + | 07/10/ | Office | [facility] | Naina Judd | Essential | | 2019 | Visit | CARDIOLOGY [place] | [address] | hypertension | | | | [address] | LISETH DAMON F | (Primary Dx); Chest | | | | [address] | [place] [address] | pressure; Mixed | | | | [place], [place] | [phone] | hyperlipidemia; | | | | [id number] | | Tobacco abuse | | | | [phone] | | | +--------+---------+ + + + [...] and his EKG showing an old inferior [place]. He previously had a normal echo performed at [facility] Dr. Barahona ordered him a stress [...] use. Exercises with and tolerates. Lives in [place] [facility] Medications Prior to Visit Medication Sig [...] with PAC's. low voltage QRS 71 bpm, ME 122 ms, Q RS 74 ms, QTC 417 ms, tracing personally reviewed by me EK05/11/2019:Normal sinus rhythm, rate 71, ME 118 ms, QRS 68 ms, QTC 399, borderline carolynn rt ME interval, LAE, cannot exclude old inferior [place], age undetermined, low voltage QRS , tr [...] pneumonia vaccines, as also increase risk of [place] I made no changes to cardiac medications [...] past surgical history. Problem list. Erika WALKER [facility] 07/10/2019 docume nted in this encounter [...]
--- OUTSIDE RECORDS SUMMARY | ~2019-09-03 | XMS | Clinical Summary ---
Demographics + + + | Address | [address] | | | [place] [address] | + + + | Home Phone | | + + + | Preferred Language | Unknown | + + + | Marital Status | Unknown | + + + | Caodaism Affiliation | Unknown | + + + | Race | Unknown | + + + | Ethnic Group | Unknown | + + + Author + + + | Author | [facility] (Historical as of | | | 05-20-19) | + + + | Organization | [facility] (Historical as of | | | 05-20-19) [...] Team Providers + +------+ + | Care Tax Preparer Name | Role | Phone | + [...] | | + +--------+ +------+-------+ + | /[facility] | YELLOW | [id number] | | | | | PLANS | [place] | | | | | + +--------+ +------+-------+ + | MEDICARE | MEDICA | [id number] | | | [address] | | | RE | | | | [place] [address] | | | IP-OP | | | [...] | Self [birth year] Home: | [address] | | | al/Fam | | 1941 | [phone] [place] [address] | | | tunde | | | [phone] | | + +--------+ +--------+ + +
--- OUTSIDE RECORDS SUMMARY | ~2019-09-03 | XMS | Encounter Summary ---
Demographics + + + | Address | [address] | | | [place] [address] | + + + | Home Phone [...] Providers + +------+ + | Care Computer Field Technician Name | Role | Phone | [...] + + | 08/25/ | Hospital [facility] | Enio Lange, | Colorectal tumor | | 2019 - | Encounter | [facility] [address] | MD [address] | (Primary Dx); Rectal | | | | [address] | [place] [address] | obstruction; | | 08/30/ | | [place], [place] | [phone] | Colorectal tumor; | | 2019 | | [address] | | Rectal obstruction; | | | | [phone] | Errol Mart MD | Anemia, unspecified | | | | | [address] | type; Essential | | | | | [place] [address] | hypertension | | | | | [phone] | | | | | | | | | | | | Giuliano Villaseñor, | | | | | | [address] | | | | | | [address] | | | | | | [place] [address] | | | | | | [phone] | | | | | | | | | | | | Jasmin Barker MD | | | | | | [address] | | | | | | [place] [address] | | | | | | [phone] | | | | | | | [...] Barker MD - 08/30/2019 2:35 PM PST [facility] Service: Hospitalist Physician Discharge Summary Patient [...] CENTER placemen t. He was accepted at [facility]. Referral to a local oncologist was sent. He will follow up with surgery in 2 weeks. Past Medical History: Past Medical History: Diagnosis Date Hyperlipidemia Hypertension 2004 Tobacco abuse Past Surgical History: Procedure Laterality Date COLOSTOMY N/A 08/26/2019 Procedure: LAPAROSCOPIC COLOSTOMY CREATION; Surgeon: Phong Tyson MD; [place] [facility] [place] OTHER SURGICAL HISTORY Left 1984 ORIF ANKLE FRACTURE OTHER SURGICAL HISTORY Bilateral 2016 CATARACT EXTRACTION SIGMOIDOSCOPY N/A 08/26/2019 Procedure: SIGMOIDOSCOPY FLEXIBLE; Surgeon: Phong Tyson MD; [place] [facility] [place] Discharged Condition: [...] input(s): ABG Disposition: Follow up: G[place] [id number] [facility] [facility] [address] Go on 09/11/2019 You have an appointment at 0930 on 09/11/2019 with Lizette MOYA [address] [phone] Phong Tyson MD [address] [place] [address] Schedule an appointment as soon as possible [...] Gonzalez RN - 08/29/2019 2:04 PM PST [facility] Service: Ostomy Care Consult Note Hospital [...] demdane. Patient receives his healthcare [facility]. CM has c ontacted patient's PCP and they will work with DME to get his ostomy supplies. Ostomy RX fo rm filled out with patient's specific ostomy appliances and CM has faxed this to the PCP. P joey is to provide patient with enough pouching supplies to last 2 weeks (until his post-op a ppointment) [facility] starter kit ordered with pt's permission # [id number] Thank you for allowing me to participate in the care of this patient. Soledad Berger RN, CWON 08/29/2019 14:04 Jasmin Herrmann MD - 08/29/2019 1:18 PM PSTFormatting of this note might be different from the or iginal. [facility] Service: Hospitalist Progress Note Hospital Day: [...] Delgado 78 y.o. 1940 Med. Record Number: [id number] Date of admission: 08/25/2019 Service(s): Colorectal Surgery [...] nursing note reviewed. Exam conducted with a application support technician present. Cardiovascular: Rate and Rhythm: Normal rate. [...] there is a heme/onc Dr in the [facility] (where they live). HTN BP's remain low-normal [...] BMI 28.00 kg/m Physical exam: AOx3 NAD [place] Heart RRR Lungs CTa Abd SNTND +BS Ostomy has stool output Giuliano Villaseñor DO 08/28/2019 2:50 PM Sree Smith ARN P - 08/28/2019 8:17 AM PST Colorectal Surgery Progress Note Pt. Name/Age/: Kris Delgado 78 y.o. 1940 Med. Record Number: [id number] Date of admission: 08/25/2019 Service(s): Colorectal Surgery [...] nursing note reviewed. Exam conducted with a application support technician present. Cardiovascular: Rate and Rhythm: Normal rate. [...] Encourage ambulation 2. General diet ok 3. health data administrator consult and teaching AARON Bull 11:50 [...] BMI 28.00 kg/m Physical exam: NAD AOx3 [place] Heart RRR Lungs CTA Abd SNTND +BS [...] BMI 28.00 kg/m Physical exam: AOx3 NAD [place] Heart RRR Lungs CTA Abd SNTND ostomy [...] Larsen RN 08/26/19 @7:47 AM Valentín Navarro, [facility] - 08/25/2019 7:41 PM PSTRx Admission Medication History Note I have reviewed the medication history for appropriate doses obtained by: ED Pharmacist After reviewing the home medication list : I agree with the home medications list. Confirmed DENTAL TECHNICIAN APPRENTICE medications with patient and insurance fill history. Adjusted DENTAL TECHNICIAN APPRENTICE medications according to the tire service technician note below. - removed lopermaide. Per [...] J?MRN: | | | | | | [id number] | | | [id number] | | | riteri | | | [...] | | | St. | | | [place] | | | y | | | [...] | | | St. | | | [place] | | | y H. | | [...] | | | St. | | | [place] | | | y H. | | [...] | | | 1-103a | | | [id number] | | | 41 | | | [...] | | | | | | MDRD IDIL traceable | | | | | | equation.Testing | | | | | | performed at [facility], [address] | | | | | | [facility], | | | | | | [place] [address] | | | | + + + + + + + + | Specimen | + + | Blood | + + + + + + + | Performing | Address | City/State/Zipcode | Phone Number | | Organization | | | | + + + + + | [facility] | [address] | [place] [address] | [phone] | + + + + + CBC [...] | | | Absolute | performed at [facility], [address] | K/uL | LABORATORY | | | | [address], | | | | | | [place] [address] | | | | + + + + + + + + | Specimen | + + | Blood | + + + + + + + | Performing | Address | City/State/Zipcode | Phone Number | | Organization | | | | + + + + + | [facility] | [address] | [place] [address] | [phone] | + + + + + Phosphorus (08/29/2019 4:53 AM PST) + + + + + + | Component | Value | Ref Range | Performed | Pathologist | | | | | At | Signature | + + + + + + | Phosphorus | 3.0Comment: Testing | 2.3 - 4.8 mg/dL | [facility] | | | | performed at [facility] | | LABORATORY | | | | [address];[place] | | | | | | [address] | | | | + + + + + + + + | Specimen | + + | Blood | + + + + + + + | Performing | Address | City/State/Zipcode | Phone Number | | Organization | | | | + + + + + | [facility] | [address] | [place] [address] | [phone] | + + + + + Magnesium (08/29/2019 4:53 AM PST) + + + + + + | Component | Value | Ref Range | Performed | Pathologist | | | | | At | Signature | + + + + + + | Magnesium | 1.7Comment: Testing | 1.7 - 2.4 mg/dL | [facility] | | | | performed at [facility] | | LABORATORY | | | | [address] [facility];[place], [place] | | | | | | [address] | | | | + + + + + + + + | Specimen | + + | Blood | + + + + + + + | Performing | Address | City/State/Zipcode | Phone Number | | Organization | | | | + + + + + | [facility] | [address] | [place] [address] | [phone] | + + + + + Basic [...] | >60Comment: GFR <60: | >60 | [facility] | | | GFR | CHRONIC [...] | | | | | performed at [facility];[address] | | | | | | [facility];[place], [place] | | | | | | [address] | | | | + + + + + + + + | Specimen | + + | Blood | + + + + + + + | Performing | Address | City/State/Zipcode | Phone Number | | Organization | | | | + + + + + | [facility] | [address] | [place] [address] | [phone] | + + + + + CBC [...] | | | Absolute | performed at [facility] | K/uL | LABORATORY | | | | [address];[place], [place] | | | | | | [address] | | | | + + + + + + + + | Specimen | + + | Blood | + + + + + + + | Performing | Address | City/State/Zipcode | Phone Number | | Organization | | | | + + + + + | [facility] | [address] | [place] [address] | [phone] | + + + + + POC [...] | | | POC | performed at [facility];[address] | | LABORATORY | | | | [address];[place], [place] | | | | | | [address] | | | | + + + + + + + + | Specimen | + + | | + + + + + + + | Performing | Address | City/State/Zipcode | Phone Number | | Organization | | | | + + + + + | [facility] | [address] | [place] [address] | [phone] | + + + + + POC [...] | | | POC | performed at [facility];[address] | | LABORATORY | | | | [address];[place], [place] | | | | | | [address] | | | | + + + + + + + + | Specimen | + + | | + + + + + + + | Performing | Address | City/State/Zipcode | Phone Number | | Organization | | | | + + + + + | [facility] | [address] | [place] [address] | [phone] | + + + + + POC Glucose (08/28/2019 8:48 AM PST) + + + + + + | Component | Value | Ref Range | Performed | Pathologist | | | | | At | Signature | + + + + + + | Glucose, | 98Comment: Testing | 65 - 99 mg/dL | [facility] | | | POC | performed at [facility];[address] | | LABORATORY | | | | [address];[place] | | | | | | [address] | | | | + + + + + + + + | Specimen | + + | | + + + + + + + | Performing | Address | City/State/Zipcode | Phone Number | | Organization | | | | + + + + + | [facility] | [address] | [place] [address] | [phone] | + + + + + Phosphorus (08/28/2019 4:18 AM PST) + + + + + + | Component | Value | Ref Range | Performed | Pathologist | | | | | At | Signature | + + + + + + | Phosphorus | 2.1 (L)Comment: Testing | 2.3 - 4.8 mg/dL | [facility] | | | | performed at [facility], [address] | | LABORATORY | | | | [address], | | | | | | [place] [address] | | | | + + + + + + + + | Specimen | + + | Blood | + + + + + + + | Performing | Address | City/State/Zipcode | Phone Number | | Organization | | | | + + + + + | [facility] | [address] | [place] [address] | [phone] | + + + + + Magnesium (08/28/2019 4:18 AM PST) + + + + + + | Component | Value | Ref Range | Performed | Pathologist | | | | | At | Signature | + + + + + + | Magnesium | 2.0Comment: Testing | 1.7 - 2.4 mg/dL | [facility] | | | | performed at [facility], [address] | | LABORATORY | | | | [address], | | | | | | [place] [address] | | | | + + + + + + + + | Specimen | + + | Blood | + + + + + + + | Performing | Address | City/State/Zipcode | Phone Number | | Organization | | | | + + + + + | [facility] | [address] [facility] | [place] [address] | [phone] | + + + + + Basic [...] | | | | | performed at [facility], [address] | | | | | | [facility], | | | | | | [place] [address] | | | | + + + + + + + + | Specimen | + + | Blood | + + + + + + + | Performing | Address | City/State/Zipcode | Phone Number | | Organization | | | | + + + + + | [facility] | [address] | [place] [address] | [phone] | + + + + + CBC [...] [address], | | | | | | [place] [address] | | | | + + + + + + + + | Specimen | + + | Blood | + + + + + + + | Performing | Address | City/State/Zipcode | Phone Number | | Organization | | | | + + + + + | [facility] | [address] | [place] [address] | [phone] | + + + + + POC Glucose (08/27/2019 8:35 PM PST) + + + + + + | Component | Value | Ref Range | Performed | Pathologist | | | | | At | Signature | + + + + + + | Glucose, | 129 (H)Comment: Testing | 65 - 99 mg/dL | [facility] | | | POC | performed at [facility] | | LABORATORY | | | | [address];[place] | | | | | | [address] | | | | + + + + + + + + | Specimen | + + | | + + + + + + + | Performing | Address | City/State/Zipcode | Phone Number | | Organization | | | | + + + + + | [facility] | [address] | [place] [address] | [phone] | + + + + + POC Glucose (08/27/2019 12:05 PM PST) + + + + + + | Component | Value | Ref Range | Performed | Pathologist | | | | | At | Signature | + + + + + + | Glucose, | 99Comment: Testing | 65 - 99 mg/dL | [facility] | | | POC | performed at [facility] | | LABORATORY | | | | [address];[place] | | | | | | [address] | | | | + + + + + + + + | Specimen | + + | | + + + + + + + | Performing | Address | City/State/Zipcode | Phone Number | | Organization | | | | + + + + + | [facility] | [address] | [place] [address] | [phone] | + + + + + POC Glucose (08/27/2019 8:01 AM PST) + + + + + + | Component | Value | Ref Range | Performed | Pathologist | | | | | At | Signature | + + + + + + | Glucose, | 85Comment: Testing | 65 - 99 mg/dL | [facility] | | | POC | performed at [facility];[address] | | LABORATORY | | | | [address];[place] | | | | | | [address] | | | | + + + + + + + + | Specimen | + + | | + + + + + + + | Performing | Address | City/State/Zipcode | Phone Number | | Organization | | | | + + + + + | [facility] | [address] | [place] [address] | [phone] | + + + + + Phosphorus (08/27/2019 5:10 AM PST) + + + + + + | Component | Value | Ref Range | Performed | Pathologist | | | | | At | Signature | + + + + + + | Phosphorus | 3.8Comment: Testing | 2.3 - 4.8 mg/dL | [facility] | | | | performed at [facility], [address] | | LABORATORY | | | | [address], | | | | | | [place] [address] | | | | + + + + + + + + | Specimen | + + | Blood | + + + + + + + | Performing | Address | City/State/Zipcode | Phone Number | | Organization | | | | + + + + + | [facility] | [address] | [place] [address] | [phone] | + + + + + Magnesium (08/27/2019 5:10 AM PST) + + + + + + | Component | Value | Ref Range | Performed | Pathologist | | | | | At | Signature | + + + + + + | Magnesium | 2.2Comment: Testing | 1.7 - 2.4 mg/dL | [facility] | | | | performed at [facility], [address] | | LABORATORY | | | | [address], | | | | | | [place] [address] | | | | + + + + + + + + | Specimen | + + | Blood | + + + + + + + | Performing | Address | City/State/Zipcode | Phone Number | | Organization | | | | + + + + + | [facility] | [address] | [place] [address] | [phone] | + + + + + Basic [...] | >60Comment: GFR <60: | >60 | [facility] | | | GFR | CHRONIC [...] | | | | | performed at [facility], [address] | | | | | | [facility], | | | | | | [place] [address] | | | | + + + + + + + + | Specimen | + + | Blood | + + + + + + + | Performing | Address | City/State/Zipcode | Phone Number | | Organization | | | | + + + + + | [facility] | [address] | [place] [address] | [phone] | + + + + + CBC [...] at | | | | | | [facility], [address] [facility] | | | | | | [place] | | | | | | [address] | | | | + + + + + + + + | Specimen | + + | Blood | + + + + + + + | Performing | Address | City/State/Zipcode | Phone Number | | Organization | | | | + + + + + | [facility] | [address] | [place] [address] | [phone] | + + + + + POC Glucose (08/27/2019 4:06 AM PST) + + + + + + | Component | Value | Ref Range | Performed | Pathologist | | | | | At | Signature | + + + + + + | Glucose, | 81Comment: Testing | 65 - 99 mg/dL | [facility] | | | POC | performed at [facility] | | LABORATORY | | | | [address];[place], [place] | | | | | | [address] | | | | + + + + + + + + | Specimen | + + | | + + + + + + + | Performing | Address | City/State/Zipcode | Phone Number | | Organization | | | | + + + + + | [facility] | [address] | [place] [address] | [phone] | + + + + + POC [...] | | | POC | performed at [facility];[address] | | LABORATORY | | | | [address];[place] | | | | | | [address] | | | | + + + + + + + + | Specimen | + + | | + + + + + + + | Performing | Address | City/State/Zipcode | Phone Number | | Organization | | | | + + + + + | [facility] | [address] | [place] [address] | [phone] | + + + + + Surgical [...] [id number]). As part of | | | [employer]' Quality Improvement Program, this case was | [...] | | | surfaceis barker-yellow and lobulated. Threader Operator sections are | | | submitted in [...] | cut surface is barker-yellow and lobulated. Threader Operator sections are | | | submitted incassette [...] | LABORATORY:The technical component was performed by [employer] | | | [employer], [address] [place] [address] (Ward Attendant: | | | Yenny Young MD; CLIA# [id number]). Professional interpretation was | | | performed by[facility], [address] | | | [place] [address] (Ward Attendant: Kenyon | | | Celine Delacruz; CLIA#: [id number]). Diagnostician: Nicanor Elias | | | DOPathologistElectronically [...] | |The technical component was performed by [employer], [address] [place] [address] (Ward Attendant: Yenny Young MD; CLIA# [id number]). Professional interpretation was performed by | | |[facility], [address] [place] [address] (Ward Attendant: Kenyon Delacruz M.D.; [facility]#: [id number]). | | | | | |Diagnostician: Nicanor [...] | | LABORATORY | | | | [address]vd;[place] [address] | | | | + + + + + + + + | Specimen | + + | Blood | + + + + + + + | Performing | Address | City/State/Zipcode | Phone Number | | Organization | | | | + + + + + | [facility] | [address] | [place] [address] | [phone] | + + + + + Protime INR (08/26/2019 4:25 AM PST) + + + + + + | Component | Value | Ref Range | Performed | Pathologist | | | | | At | Signature | + + + + + + | INR | 1.1Comment: REFERENCE | | [facility] | | | | RANGE:0.9 - [...] | | | | | performed at [facility] | | | | | | [address];[place] | | | | | | [address] | | | | + + + + + + + + | Specimen | + + | Blood | + + + + + + + | Performing | Address | City/State/Zipcode | Phone Number | | Organization | | | | + + + + + | [facility] | [address] | [place] [address] | [phone] | + + + + + Ferritin (08/26/2019 4:25 AM PST) + + + + + + | Component | Value | Ref Range | Performed | Pathologist | | | | | At | Signature | + + + + + + | Ferritin | 144Comment: Testing | 11 - 450 ng/mL | [facility] | | | | performed at [facility], [address] | | LABORATORY | | | | [address], | | | | | | [place] [address] | | | | + + + + + + + + | Specimen | + + | Blood | + + + + + + + | Performing | Address | City/State/Zipcode | Phone Number | | Organization | | | | + + + + + | [facility] | [address] | [place] [address] | [phone] | + + + + + Iron [...] | | | Saturation | performed at [facility], [address] | | LABORATORY | | | | [address], | | | | | | [place] [address] | | | | + + + + + + + + | Specimen | + + | Blood | + + + + + + + | Performing | Address | City/State/Zipcode | Phone Number | | Organization | | | | + + + + + | [facility] | [address] | [place] [address] | [phone] | + + + + + CBC [...] [facility] | | | | performed at [facility], [address] | | LABORATORY | | | | [address], | | | | | | [place] [address] | | | | + + + + + + + + | Specimen | + + | Blood | + + + + + + + | Performing | Address | City/State/Zipcode | Phone Number | | Organization | | | | + + + + + | [facility] | [address] | [place] [address] | [phone] | + + + + + Basic [...] | | | | | | MDRD IDIL traceable | | | | | | equation.Testing | | | | | | performed at [facility], [address] | | | | | | [facility], | | | | | | [place] [address] | | | | + + + + + + + + | Specimen | + + | Blood | + + + + + + + | Performing | Address | City/State/Zipcode | Phone Number | | Organization | | | | + + + + + | [facility] | [address] | [place] [address] | [phone] | + + + + + Urinalysis [...] - 1.030 | [facility] | | | [place], | | | LABORATORY | | | [...] UA | NONE SEENComment: | NONE | [facility] | | | | Testing performed at | | LABORATORY | | | | [facility];[address];[place] [address] | | | | + + + [...] | + + + + + | [facility] | [address] | [place] [address] | [phone] | + + + + + Comprehensive [...] | | | | | performed at [facility] | | | | | | [facility];[place], [place] | | | | | | [address] | | | | + + + + + + + + | Specimen | + + | Blood | + + + + + + + | Performing | Address | City/State/Zipcode | Phone Number | | Organization | | | | + + + + + | [facility] | [address] | [place] [address] | [phone] | + + + + + CBC [...] | | | Absolute | performed at [facility];[address] | K/uL | LABORATORY | | | | [address];[place] | | | | | | [address] | | | | + + + + + + + + | Specimen | + + | Blood | + + + + + + + | Performing | Address | City/State/Zipcode | Phone Number | | Organization | | | | + + + + + | [facility] | [address] | [place] [address] | [phone] | + + + + + documented [...] | | | | | | longer, [id number] use of | | | | | [...]
--- OUTSIDE RECORDS SUMMARY | ~2019-09-03 | XMS | Encounter Summary ---
Demographics + + + | Address | [address] | | | [place] [address] | + + + | Home Phone | | + + + | Preferred Language | Unknown | + + + | Marital Status | | + + + | Restorationism Affiliation [...] Team Providers + +------+ + | Care Counter Intelligence Technician Name | Role | Phone | [...] | / Cardiology | done sah | [address] | [address] | | | | | Procedures | SARAH BLACKMON | LISETH COLVIN | | | | | OFFICE VISIT | [place] | [address] | | | | | REGULAR | [place] [address] | [facility] | | | | | | Phone: | [address] Phone: | | | | | | [phone] | [phone] | | | | | | Fax: | Fax: | | | | | | [phone] | [phone] | +--------+--------+ + + + + Encounter Details +--------+---------+ + + + | Date | Type | Department | Care Team | Description | +--------+---------+ + + + | 07/10/ | Office | [facility] | Naina Judd | Essential | | 2019 | Visit | CARDIOLOGY [place] | [address] | hypertension | | | | [address] | [place] | (Primary Dx); Chest | | | | [address] | [place] [address] | pressure; Mixed | | | | [place] | [phone] | hyperlipidemia; | | | | [address] | | Tobacco abuse | | | | [phone] | | | +--------+---------+ + + + [...] and 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 He previously had a normal echo performed at [facility] Dr. Barahona ordered him a stress test. [...] use. Exercises with and tolerates. Lives in [place] [facility] Medications Prior to Visit Medication Sig [...] with PAC's. 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 Problem list. Erika WALKER [facility] 07/10/2019 docume nted in this [...]
--- OUTSIDE RECORDS SUMMARY | ~2019-09-03 | XMS | Encounter Summary ---
Demographics + + + | Address | [address] | | | [place] [address] | + + + | Home Phone [...] | Author | [facility] | | | and [place] | + + + | Organization | [facility] | | | and [...] Team Providers + +------+ + | Care Financial Consultant Name | Role | Phone | [...] + + | 08/26/ | Surgery | [facility] | Phong Tyson, | LAPAROSCOPIC | | 2019 | | [facility] | [address] | COLOSTOMY CREATION | | | | OPERATING ROOM [address] | [address] | | | | | [address] | [place] [address] | | | | | [place], [place] | [phone] | | | | | [address] | | | | | | [phone] | | | +--------+---------+ + + + [...] Barker MD - 08/30/2019 2:35 PM PST [facility] Service: Hospitalist Physician Discharge Summary Patient ID: Kris WALKERN: [id number] 1940 78 y.o. Admit date: 08/25/2019 Discharge [...] SNF placemen t. He was accepted at [facility]. Referral to a local oncologist was sent. He will follow up with surgery in 2 weeks. Past Medical History: Past Medical History: Diagnosis Date Hyperlipidemia Hypertension 2004 Tobacco abuse Past Surgical History: Procedure Laterality Date COLOSTOMY N/A 08/26/2019 Procedure: LAPAROSCOPIC COLOSTOMY CREATION; Surgeon: Phong Tyson MD; Location: [facility] MAIN OR OTHER SURGICAL HISTORY Left 1985 ORIF ANKLE FRACTURE OTHER SURGICAL HISTORY Bilateral 2017 CATARACT EXTRACTION SIGMOIDOSCOPY N/A 08/26/2019 Procedure: SIGMOIDOSCOPY FLEXIBLE; Surgeon: Phong Tyson MD; Location: [facility] MAIN OR Discharged [...] input(s): ABG Disposition: Follow up: GRIFFIN Royal [address] [address] [facility] [address] Go on 09/11/2019 You have an appointment at 0930 on 09/11/2019 with Lizette MOYA [address] [address] Phong Tyson MD [address] [place] [address] Schedule an appointment as soon as possible [...] Gonzalez RN - 08/29/2019 2:04 PM PST [facility] Service: Ostomy Care Consult Note Hospital [...] of appliance change. Plan is to return tasiavalisbeth for return demo. Patient receives his healthcare through [facility]. CM has c ontacted patient's PCP [...] starter kit ordered with pt's permission # [id number] Thank you for allowing me to participate in the care of this patient. Soledad Berger RN, CWON 08/29/2019 14:04 Jasmin Herrmann MD - 08/29/2019 1:18 PM PSTFormatting of this note might be different from the or iginal. [facility] Service: Hospitalist Progress Note Hospital Day: [...] Delgado 78 y.o. 1940 Med. Record Number: [id number] Date of admission: 08/25/2019 Service(s): Colorectal Surgery [...] nursing note reviewed. Exam conducted with a director of academic support present. Cardiovascular: Rate and Rhythm: Normal rate. [...] with heme/onc, either Dr Malik here in [facility] or supposedly there is a heme/onc Dr in the [facility] (where they live). HTN BP's remain [...] BMI 28.00 kg/m Physical exam: AOx3 NAD [place] Heart RRR Lungs CTa Abd SNTND +BS Ostomy has stool output Giuliano Villaseñor DO 08/28/2019 2:50 PM Sree Smith ARN P - 08/28/2019 8:17 AM PST Colorectal Surgery Progress Note Pt. Name/Age/: Kris Delgado 78 y.o. 1940 Med. Record Number: [id number] Date of admission: 08/25/2019 Service(s): Colorectal Surgery [...] nursing note reviewed. Exam conducted with a director of academic support present. Cardiovascular: Rate and Rhythm: Normal rate. [...] Encourage ambulation 2. General diet ok 3. improvement coordinator consult and teaching AARON Bull 11:50 AM; [...] BMI 28.00 kg/m Physical exam: NAD AOx3 [place] Heart RRR Lungs CTA Abd SNTND +BS [...] BMI 28.00 kg/m Physical exam: AOx3 NAD [place] Heart RRR Lungs CTA Abd SNTND ostomy [...] 08/26/19 @7:47 AM Valentín Navarro [facility] - 08/25/2019 7:41 PM PSTRx Admission Medication History Note I have reviewed the medication history for appropriate doses obtained by: ED Pharmacist After reviewing the home medication list : I agree with the home medications list. Confirmed SENIOR PAINTER medications with patient and insurance fill history. Adjusted SENIOR PAINTER medications according to the drain technician note below. - removed lopermaide. Per [...] J?MRN: | | | | | | [id number] | | | [id number] | | | riteri | | | [...] | | | St. | | | [place] | | | y | | | [...] | | | St. | | | [place] | | | y H. | | [...] | | | St. | | | [place] | | | y H. | | [...] | | | 1-103a | | | [id number] | | | 41 | | | [...] | >60Comment: GFR <60: | >60 | [facility] | | | GFR | CHRONIC KIDNEY [...] | | | | | performed at [facility], [address] | | | | | | [facility], | | | | | | [place] [address] | | | | + + + + + + + + | Specimen | + + | Blood | + + + + + + + | Performing | Address | City/State/Zipcode | Phone Number | | Organization | | | | + + + + + | [facility] | [address] [facility] [address] [facility] | [place] [address] | [phone] | + + + + + CBC [...] 0.04Comment: Testing | 0.00 - 0.10 | [facility] | | | Absolute | performed at [facility], [address] | K/uL | LABORATORY | | | | [address], | | | | | | [place] [address] | | | | + + + + + + + + | Specimen | + + | Blood | + + + + + + + | Performing | Address | City/State/Zipcode | Phone Number | | Organization | | | | + + + + + | [facility] | [address] | [place] [address] | [phone] | + + + + + Phosphorus (08/29/2019 4:53 AM PST) + + + + + + | Component | Value | Ref Range | Performed | Pathologist | | | | | At | Signature | + + + + + + | Phosphorus | 3.0Comment: Testing | 2.3 - 4.8 mg/dL | [facility] | | | | performed at [facility];[address] | | LABORATORY | | | | [address];[place], [place] | | | | | | [address] | | | | + + + + + + + + | Specimen | + + | Blood | + + + + + + + | Performing | Address | City/State/Zipcode | Phone Number | | Organization | | | | + + + + + | [facility] | [address] | [place] [address] | [phone] | + + + + + Magnesium (08/29/2019 4:53 AM PST) + + + + + + | Component | Value | Ref Range | Performed | Pathologist | | | | | At | Signature | + + + + + + | Magnesium | 1.7Comment: Testing | 1.7 - 2.4 mg/dL | [facility] | | | | performed at [facility];[address] | | LABORATORY | | | | [address];[place], [place] | | | | | | [address] | | | | + + + + + + + + | Specimen | + + | Blood | + + + + + + + | Performing | Address | City/State/Zipcode | Phone Number | | Organization | | | | + + + + + | [facility] | [address] [facility] | [place] [address] | [phone] | + + + + + Basic [...] | | | | | performed at [facility];[address] | | | | | | [facility];[place], [place] | | | | | | [address] | | | | + + + + + + + + | Specimen | + + | Blood | + + + + + + + | Performing | Address | City/State/Zipcode | Phone Number | | Organization | | | | + + + + + | [facility] | [address] | [place] [address] | [phone] | + + + + + CBC [...] | | | Absolute | performed at [facility];[address] | [address] | LABORATORY | | | | [address];[place] | | | | | | [address] | | | | + + + + + + + + | Specimen | + + | Blood | + + + + + + + | Performing | Address | City/State/Zipcode | Phone Number | | Organization | | | | + + + + + | [facility] | [address] | [place] [address] | [phone] | + + + + + POC [...] | | | POC | performed at [facility];[address] | | LABORATORY | | | | [address];[place], [place] | | | | | | [address] | | | | + + + + + + + + | Specimen | + + | | + + + + + + + | Performing | Address | City/State/Zipcode | Phone Number | | Organization | | | | + + + + + | [facility] | [address] | [place] [address] | [phone] | + + + + + POC [...] | | | POC | performed at [facility];[address] | | LABORATORY | | | | [address];[place], [place] | | | | | | [address] | | | | + + + + + + + + | Specimen | + + | | + + + + + + + | Performing | Address | City/State/Zipcode | Phone Number | | Organization | | | | + + + + + | [facility] | [address] | [place] [address] | [phone] | + + + + + POC Glucose (08/28/2019 8:48 AM PST) + + + + + + | Component | Value | Ref Range | Performed | Pathologist | | | | | At | Signature | + + + + + + | Glucose, | 98Comment: Testing | 65 - 99 mg/dL | [facility] | | | POC | performed at [facility];[address] | | LABORATORY | | | | [address];[place] | | | | | | [address] | | | | + + + + + + + + | Specimen | + + | | + + + + + + + | Performing | Address | City/State/Zipcode | Phone Number | | Organization | | | | + + + + + | [facility] | [address] | [place] [address] | [phone] | + + + + + Phosphorus (08/28/2019 4:18 AM PST) + + + + + + | Component | Value | Ref Range | Performed | Pathologist | | | | | At | Signature | + + + + + + | Phosphorus | 2.1 (L)Comment: Testing | 2.3 - 4.8 mg/dL | [facility] | | | | performed at [facility], [address] | | LABORATORY | | | | [address], | | | | | | [place] [address] | | | | + + + + + + + + | Specimen | + + | Blood | + + + + + + + | Performing | Address | City/State/Zipcode | Phone Number | | Organization | | | | + + + + + | [facility] | [address] | [place] [address] | [phone] | + + + + + Magnesium (08/28/2019 4:18 AM PST) + + + + + + | Component | Value | Ref Range | Performed | Pathologist | | | | | At | Signature | + + + + + + | Magnesium | 2.0Comment: Testing | 1.7 - 2.4 mg/dL | [facility] | | | | performed at [facility], [address] | | LABORATORY | | | | [address], | | | | | | [place] [address] | | | | + + + + + + + + | Specimen | + + | Blood | + + + + + + + | Performing | Address | City/State/Zipcode | Phone Number | | Organization | | | | + + + + + | [facility] | [address] | [place] [address] | [phone] | + + + + + Basic [...] | >60Comment: GFR <60: | >60 | [facility] | | | GFR | CHRONIC KIDNEY [...] | | | | | | MDRD IDWA traceable | | | | | | equation.Testing | | | | | | performed at [facility], [address] | | | | | | [facility], | | | | | | [place] [address] | | | | + + + + + + + + | Specimen | + + | Blood | + + + + + + + | Performing | Address | City/State/Zipcode | Phone Number | | Organization | | | | + + + + + | [facility] | [address] | [place] [address] | [phone] | + + + + + CBC [...] | | | Absolute | performed at [facility], [address] | K/uL | LABORATORY | | | | [address], | | | | | | [place] [address] | | | | + + + + + + + + | Specimen | + + | Blood | + + + + + + + | Performing | Address | City/State/Zipcode | Phone Number | | Organization | | | | + + + + + | [facility] | [address] | [place] [address] | [phone] | + + + + + POC [...] | | | POC | performed at [facility];[address] | | LABORATORY | | | | [address];[place] | | | | | | [address] | | | | + + + + + + + + | Specimen | + + | | + + + + + + + | Performing | Address | City/State/Zipcode | Phone Number | | Organization | | | | + + + + + | [facility] | [address] | [place] [address] | [phone] | + + + + + POC Glucose (08/27/2019 12:05 PM PST) + + + + + + | Component | Value | Ref Range | Performed | Pathologist | | | | | At | Signature | + + + + + + | Glucose, | 99Comment: Testing | 65 - 99 mg/dL | [facility] | | | POC | performed at [facility];[address] | | LABORATORY | | | | [address];[place], [place] | | | | | | [address] | | | | + + + + + + + + | Specimen | + + | | + + + + + + + | Performing | Address | City/State/Zipcode | Phone Number | | Organization | | | | + + + + + | [facility] | [address] | [place] [address] | [phone] | + + + + + POC Glucose (08/27/2019 8:01 AM PST) + + + + + + | Component | Value | Ref Range | Performed | Pathologist | | | | | At | Signature | + + + + + + | Glucose, | 85Comment: Testing | 65 - 99 mg/dL | [facility] | | | POC | performed at [facility];[address] | | LABORATORY | | | | [address];[place], [place] | | | | | | [address] | | | | + + + + + + + + | Specimen | + + | | + + + + + + + | Performing | Address | City/State/Zipcode | Phone Number | | Organization | | | | + + + + + | [facility] | [address] | [place] [address] | [phone] | + + + + + Phosphorus (08/27/2019 5:10 AM PST) + + + + + + | Component | Value | Ref Range | Performed | Pathologist | | | | | At | Signature | + + + + + + | Phosphorus | 3.8Comment: Testing | 2.3 - 4.8 mg/dL | [facility] | | | | performed at [facility], [address] | | LABORATORY | | | | [address], | | | | | | [place] [address] | | | | + + + + + + + + | Specimen | + + | Blood | + + + + + + + | Performing | Address | City/State/Zipcode | Phone Number | | Organization | | | | + + + + + | [facility] | [address] | [place] [address] | [phone] | + + + + + Magnesium (08/27/2019 5:10 AM PST) + + + + + + | Component | Value | Ref Range | Performed | Pathologist | | | | | At | Signature | + + + + + + | Magnesium | 2.2Comment: Testing | 1.7 - 2.4 mg/dL | [facility] | | | | performed at [facility], [address] | | LABORATORY | | | | [address], | | | | | | [place] [address] | | | | + + + + + + + + | Specimen | + + | Blood | + + + + + + + | Performing | Address | City/State/Zipcode | Phone Number | | Organization | | | | + + + + + | [facility] | [address] | [place] [address] | [phone] | + + + + + Basic [...] | | | | | performed at [facility], [address] | | | | | | [address], | | | | | | [place] [address] | | | | + + + + + + + + | Specimen | + + | Blood | + + + + + + + | Performing | Address | City/State/Zipcode | Phone Number | | Organization | | | | + + + + + | [facility] | [address] | [place] [address] | [phone] | + + + + + CBC [...] at | | | | | | [facility], [address] [facility] | | | | | | [place] | | | | | | [address] | | | | + + + + + + + + | Specimen | + + | Blood | + + + + + + + | Performing | Address | City/State/Zipcode | Phone Number | | Organization | | | | + + + + + | [facility] | [address] | [place] [address] | [phone] | + + + + + POC Glucose (08/27/2019 4:06 AM PST) + + + + + + | Component | Value | Ref Range | Performed | Pathologist | | | | | At | Signature | + + + + + + | Glucose, | 81Comment: Testing | 65 - 99 mg/dL | [facility] | | | POC | performed at [facility];[address] | | LABORATORY | | | | [address];[place], [place] | | | | | | [address] | | | | + + + + + + + + | Specimen | + + | | + + + + + + + | Performing | Address | City/State/Zipcode | Phone Number | | Organization | | | | + + + + + | [facility] | [address] | [place] [address] | [phone] | + + + + + POC [...] | | | POC | performed at [facility];[address] | | LABORATORY | | | | [address];[place], [place] | | | | | | [address] | | | | + + + + + + + + | Specimen | + + | | + + + + + + + | Performing | Address | City/State/Zipcode | Phone Number | | Organization | | | | + + + + + | [facility] | [address] | [place] [address] | [phone] | + + + + + Surgical [...] | | 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 As part of | | | [facility]' Quality Improvement Program, this case was | [...] | | | surfaceis barker-yellow and lobulated. Abnormal Psychology Teacher sections are | | | submitted in [...] | cut surface is barker-yellow and lobulated. Abnormal Psychology Teacher sections are | | | submitted incassette [...] | LABORATORY:The technical component was performed by [facility] | | | [facility], [address] [place] [address] (Concrete Boom Pump Operator: | | | Yenny Young MD; CLIA# [id number]). Professional interpretation was | | | performed byPenemarie K Murphy, [facility], [facility] | | | [place] [address] (Concrete Boom Pump Operator: Kenyon | | | Celine Delacruz; CLIA#: [id number]). Diagnostician: Nicanor Elias | | | DOPathologistElectronically [...] | |The technical component was performed by [facility], [address] [place] [address] (Concrete Boom Pump Operator: Yenny Young MD; CLIA# [id number]). Professional interpretation was performed by | | [facility], [address] [place] [address] (Concrete Boom Pump Operator: Kenyon Delacruz M.D.; CLIA#: [id number]). | | | | | |Diagnostician: Nicanor [...] BAND | Testing performed at | | [facility] | | | | [facility];[address] | LABORATORY | | | | [address];[place] [address] | | | | + + + + + + + + | Specimen | + + | Blood | + + + + + + + | Performing | Address | City/State/Zipcode | Phone Number | | Organization | | | | + + + + + | [facility] | [address] | [place] [address] | [phone] | + + + + + Protime [...] | | | | | performed at [facility] | | | | | | [facility], [place] | | | | | | [address] | | | | + + + + + + + + | Specimen | + + | Blood | + + + + + + + | Performing | Address | City/State/Zipcode | Phone Number | | Organization | | | | + + + + + | [facility] | [address] | [place] [address] | [phone] | + + + + + Ferritin (08/26/2019 4:25 AM PST) + + + + + + | Component | Value | Ref Range | Performed | Pathologist | | | | | At | Signature | + + + + + + | Ferritin | 144Comment: Testing | 11 - 450 ng/mL | [facility] | | | | performed at [facility], [address] | | LABORATORY | | | | [address], | | | | | | [place] [address] | | | | + + + + + + + + | Specimen | + + | Blood | + + + + + + + | Performing | Address | City/State/Zipcode | Phone Number | | Organization | | | | + + + + + | [facility] | [address] | [place] [address] | [phone] | + + + + + Iron [...] | | | | | [place] [address] | | | | + + + + + + + + | Specimen | + + | Blood | + + + + + + + | Performing | Address | City/State/Zipcode | Phone Number | | Organization | | | | + + + + + | [facility] | [address] | [place] [address] | [phone] | + + + + + CBC [...] STEW | | | | performed at [facility], [address] | | LABORATORY | | | | [address], | | | | | | [place] [address] | | | | + + + + + + + + | Specimen | + + | Blood | + + + + + + + | Performing | Address | City/State/Zipcode | Phone Number | | Organization | | | | + + + + + | [facility] | [address] | [place] [address] | [phone] | + + + + + Basic [...] | | | | | performed at [facility], [address] | | | | | | [address], | | | | | | [place] [address] | | | | + + + + + + + + | Specimen | + + | Blood | + + + + + + + | Performing | Address | City/State/Zipcode | Phone Number | | Organization | | | | + + + + + | [facility] | [address] | [place] [address] | [phone] | + + + + + Urinalysis [...] - 1.030 | [facility] | | | [place], | | | LABORATORY | | | [...] | | LABORATORY | | | | [facility];[address] [place] [address] | | | | | | [place] [address] | | | | + + + [...] | + + + + + | [facility] | [address] | [place] [address] | [phone] | + + + + + Comprehensive [...] | | | | | | MDRD IDWA traceable | | | | | | equation.Testing | | | | | | performed at [facility];[address] | | | | | | [facility];[place], [place] | | | | | | [address] | | | | + + + + + + + + | Specimen | + + | Blood | + + + + + + + | Performing | Address | City/State/[facility] | Phone Number | | Organization | | | | + + + + + | [facility] | [address] | [place] [address] | [phone] | + + + + + CBC [...] | | | Absolute | performed at [facility];[address] | [address] | LABORATORY | | | | [address];[place], [place] | | | | | | [address] | | | | + + + + + + + + | Specimen | + + | Blood | + + + + + + + | Performing | Address | City/State/Zipcode | Phone Number | | Organization | | | | + + + + + | [facility] | [address] | [place] [address] | [phone] | + + + + + documented [...]
--- OUTSIDE RECORDS SUMMARY | ~2019-09-03 | XMS | Encounter Summary ---
Demographics + + + | Address | [address] | | | [place] [address] | + + + | Home Phone [...] + | Author | [facility] | | | and [place] | + + + | Organization | [facility] | | | and [...] Team Providers + +------+ + | Care Children'S Counselor Name | Role | Phone | + [...] + + | 08/26/ | Anesthesia | [facility] | Judson Mcmullen | | | 2019 | Event [facility] | [address] | | | | | OPERATING ROOM [address] | [address] | | | | | [address] | [place] [address] | | | | | [place] | [phone] | | | | | [address] | | | | | | [phone] | | | +--------+ + + + [...] 08/25/191818 by | 08/30/191625 by | | krama | gauge; Hematology, Chemistry, | Kristen Jara, [...] procedure documentation); | Judson Toure | Carline oCrea RN | | | orogastric; 18; center [...]
[~2019-09-03 18:22] MED LIST changes: +COLACE100 MG PO; +LOPERAMIDE2 MG PO; +MIRALAX17 GM PO; +NORCO 5-325 TA1 EACH PO; +PROBIOTIC1 EAC1 PO; +TYLENOL325 MG PO; +ZESTRIL10 MG PO
--- OUTSIDE RECORDS SUMMARY | 2019-09-03 18:26 | XMS ---
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 E.Reina VISIT COUNT (12 MO.) [address] TOTAL 3 NOTE: Visits indicate total known visits. ED/UCC VISIT TRACKING (12 MO.) 09/03/2019 18:23 [facility] TYPE: Emergency COMPLAINT: - POST OP PROBLEM [facility] DIAGNOSES: - Neoplasm of unspecified behavior of digestive system - Stenosis of anus and rectum - Rectal Problems 08/23/2019 09:45 [facility] TYPE: Emergency COMPLAINT: - ABD PAIN INPATIENT VISIT TRACKING (12 MO.) 08/23/2019 09:46 [facility] TYPE: Observation COMPLAINT: - COLON CANCER DIAGNOSES: - Essential (primary) hypertension - Nicotine dependence, cigarettes, uncomplicated - Allergy status to penicillin - Spondylosis w/o myelopathy or radiculopathy, lumbar region - Neoplasm of unspecified behavior of digestive system - Other intermediate project manager (current) drug therapy - Unspecified abdominal pain - Other hemorrhoids - Hyperlipidemia, unspecified - Athscl heart disease of [place] coronary artery w/o ang pctrs - Unspecified hearing loss, unspecified ear - Malignant neoplasm of rectum - buttermaker continuous churn (current) use of aspirin - 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
[2019-09-03] MEDS ORDERED: MULTI VITAMIN1 EACH PO (18:46)
[2019-09-03] MEDS ORDERED: ASPIRIN325 MG PO (18:48)
[2019-09-03] MEDS ORDERED: ANTI-FUNGAL POW71 GM TOP (18:48)
[2019-09-03] MEDS ORDERED: OXYCODONE HCL5 MG PO (18:49)
[2019-09-03] MEDS ORDERED: MELATONIN3 MG PO (18:50)
[2019-09-03] MEDS ORDERED: BACTRIM DS TAB1 EACH PO (21:59)
== END 2019-09-03 22:11 | disposition home or self-care (01) ==
LOC: ED 18:22
DX: T81.40XA Infection following a procedure, unspecified, initial encounter (principal); L03.311 Cellulitis of abdominal wall; I10 Essential (primary) hypertension; E78.5 Hyperlipidemia, unspecified; Z88.0 Allergy status to penicillin; Z88.8 Allergy status to other drugs, medicaments and biological substances; Z79.899 Other long term (current) drug therapy; Z79.82 Long term (current) use of aspirin
CPT/HCPCS: 74177; 80053; 85025; 96360; 96361; 99284-25; J7040; Q9967

== ENCOUNTER 2019-09-24 16:12 | Emergency (ER) | payer MEDICARE, OTHER ==
[~2019-09-24] VITALS: Ht 170.2 cm; Wt 69.8 kg
--- OUTSIDE RECORDS SUMMARY | ~2019-09-24 | XMS | Encounter Summary ---
Demographics + + + | Address | [address] | | | [place] [address] | + + + | Home Phone | | + + + | Preferred Language | Unknown | + + + | Marital Status | | + + + | Shinto Affiliation | Unknown | + + + | Race | Unknown | + + + | Ethnic Group | Unknown | + + + Author + + + | Author | [facility] | | | and [place] | + + + | Organization | [facility] | | | and [...] Team Providers + +------+ + | Care Production Supervisor Trainee Name | Role | Phone | + +------+ + PCP | Unavailable | + +------+ + Encounter Details +--------+ + + + + | Date | Type | Department | Care Team | Description | +--------+ + + + + | 02/21/ | Orders Only | [facility] | Conversion | | | 2019 | | CONVERSION 888 | Transaction, | | | | | HERBERT CHACKO | Provider Unknown | | | | | [place] | | | | | | [address] | | | | | | [phone] | | | +--------+ + + + + Social History + +-------+ +--------+------+ | Tobacco Use | Types | Packs/Day | Years | Date | | | | | Used | | + +-------+ +--------+------+ | Never Assessed | | | | | + +-------+ [...] as of this encounter Plan of Treatment Not on filedocumented as of this encounter Procedures + +--------+ + + + | Procedure Name | Priori | Date/Time | Associated Diagnosis | Comments | | | ty | | | | + +--------+ + + + | ECHO INTERPRETATION | Routin | 02/21/2019 | | Results for this | | OF OUTSIDE FILMS | e | 10:48 AM | | procedure are in the | | | | PDT | | results section. | + +--------+ + + + documented in this encounter Results ECHO Interpretation of Outside Films (02/21/2019 10:48 AM PDT) + + | Specimen | + + | | + + + + + | Impressions | Performed At | + + + | 1. Overall left ventricular systolic function is normal with, an EF | | | between 60 - 65 %. 2. No regional wall motion abnormalities. 3. The | | | right ventricle is normal in size and function. | | + + + + + + | Narrative | Performed At | + + + | Patient Name: Kris Delgado Date of : 1940 | | | Performing Physician: Cici Abraham | | | | | | INDICATIONS Abnormal EKG CONCLUSIONS | | | 1. Overall left ventricular systolic function is normal with, an EF | | | between 60 - 65 %. 2. No regional wall motion abnormalities. 3. The | | | right ventricle is normal in size and function. FINDINGS -------- | | | ECG rhythm: Sinus rhythm. Study: A 2-dimensional transthoracic | | | echocardiogram with m-mode, spectral and color flow Doppler was | | | perfomed. Study: This was a technically adequate study. Left | | | Ventricle: Overall left ventricular systolic function is normal with, | | | an EF between 60 - 65 %. Left Ventricle: The left ventricle cavity | | | size is normal. Left Ventricle: Left ventricular wall thickness is | | | normal. Left Ventricle: No regional wall motion abnormalities. Left | | | Ventricle: The diastolic filling pattern is normal for the age of the | | | patient. Right Ventricle: The right ventricle is normal in size and | | | function. Left Atrium: The left atrium is normal in size. Right | | | Atrium: The right atrium is normal in size. Aortic Valve: The aortic | | | valve appears to be trileaflet. Aortic Valve: Trace amount of aortic | | | regurgitation. Aortic Valve: There is no evidence of aortic stenosis. | | | Aortic Valve: Aortic valve is mildly thickened. Mitral Valve: No | | | mitral regurgitation. Mitral Valve: Mild mitral annular calcification | | | present. Tricuspid Valve: The tricuspid valve appears structurally | | | normal. Tricuspid Valve: Mild tricuspid regurgitation present. | | | Tricuspid Valve: There is no evidence of pulmonary hypertension. | | | Tricuspid Valve: The right ventricular systolic pressure (pulmonary | | | artery systolic pressure), as measured by Doppler, is 25.91mmHg. | | | Pulmonic Valve: The pulmonic valve was not well visualized. | | | Pericardium: There is no pericardial effusion. IVC/Hepatic Veins: The | | | IVC is normal size (1.5-2.5cm) and collapses >50% with sniff, | | | consistent with central venous pressures of 5-10mmHg. Aorta: The | | | aortic root, ascending aorta and aortic arch are normal. Mass: No | | | mass visualized Thrombus: No clot visualized Thrombus: No vegetation | | | visualized. Septum: No ASD observed. MEASUREMENTS | | | Ao asc: 3.29 cm Ao Diam: 3.31 cm Ao sinus: 3.[address] | | | junct: 3.13 cm IVC: 2.17 cm LA Major: 5.66 cm EDV(Teich): | | | 78.70 ml IVSd: 0.75 cm LVIDd: 4.20 cm LVPWd: 0.90 cm | | | LVOT Diam: 2.24 cm %FS: 30.84 % EF(Teich): 58.84 % | | | ESV(Teich): 32.39 ml LVIDs: 2.90 cm SV(Teich): 46.31 ml RA | | | Major: 4.94 cm RV Major: 7.71 cm RV Minor: 3.38 cm RV | | | Minor: 3.03 cm LVEF MOD A2C: 59.17 % SV MOD A2C: 35.09 ml | | | LVEF MOD A4C: 61.74 % SV MOD A4C: 42.15 ml EF Biplane: | | | 60.65 % LVEDV MOD BP: 63.99 ml LVESV MOD BP: 25.17 ml LVEDV | | | MOD A2C: 59.30 ml LVLd A2C: 7.70 cm LVEDV MOD A4C: 68.26 ml | | | LVLd A4C: 7.82 cm LVESV MOD A2C: 24.20 ml LVLs A2C: 6.98 | | | cm LVESV MOD A4C: 26.11 ml LVLs A4C: 7.05 cm LAESV(A-L): | | | 46.31 ml LAESV Index (A-L): 24.25 ml/m2 LAAs A2C: 14.49 cm2 | | | LAESV A-L A2C: 33.91 ml LAESV MOD A2C: 32.12 ml LALs A2C: | | | 5.25 cm LAAs A4C: 19.79 cm2 LAESV A-L A4C: 58.12 ml LAESV MOD | | | A4C: 57.48 ml LALs A4C: 5.72 cm RAAs: 18.17 cm2 RAESV | | | A-L: 49.96 ml RAESV MOD: 49.15 ml RALs: 5.60 cm TAPSE: | | | 2.19 cm AV Env.Ti: 293.90 ms AV maxP.91 mmHg AV meanPG: | | | 2.41 mmHg AV Vmax: 1.10 m/s AV Vmean: 0.72 m/s AV VTI: | | | 21.23 cm ARGELIA Vmax: 3.17 cm2 ARGELIA (VTI): 3.89 cm2 AVAI Vmax: | | | 0.00 cm2/m2 AVAI (VTI): 0.00 cm2/m2 LVOT Env.Ti: 360.44 ms | | | LVOT maxP.14 mmHg LVOT meanP.50 mmHg LVSI Dopp: | | | 43.29 ml/m2 LVSV Dopp: 82.69 ml LVOT Vmax: 0.88 m/s LVOT | | | Vmean: 0.57 m/s LVOT VTI: 20.85 cm MV A Emanuel: 0.67 m/s MV | | | Dec Stanly: 1.81 m/s2 MV DecT: 317.65 ms MV E Emanuel: 0.57 m/s | | | MV E/A Ratio: 0.85 E/E' Sept: 11.69 E' Lat: 0.08 m/s E' | | | Sept: 0.04 m/s RAP: 5 mmHg RV S': 0.12 m/s RVSP: 25.91 | | | mmHg TR maxP.91 mmHg TR Vmax: 2.28 m/s Set Up Machinist: | | | Authenticated by: Cici Abraham Report Date/Time: 02-21-2019 19:5:14 | | + + + + + | Procedure Note | + + | Adal Horner Conversion - 05/25/2019 2:07 PM PDT Patient Name: Lynn Delgado | | : 1940 Performing Physician: Cici | | Jarad INDICATIONS | | -Abnormal EKG CONCLUSIONS 1. Overall left ventricular systolic function is | | normal with, an EF between 60 - 65 %.2. No regional wall motion abnormalities.3. The | | right ventricle is normal in size and function. FINDINGS--------ECG rhythm: Sinus | | rhythm.Study: A 2-dimensional transthoracic echocardiogram with m-mode, spectral and | | color flow Doppler was perfomed.Study: This was a technically adequate study.Left | | Ventricle: Overall left ventricular systolic function is normal with, an EF between 60 - | | 65 %.Left Ventricle: The left ventricle cavity size is normal.Left Ventricle: Left | | ventricular wall thickness is normal.Left Ventricle: No regional wall motion | | abnormalities.Left Ventricle: The diastolic filling pattern is normal for the age of the | | patient.Right Ventricle: The right ventricle is normal in size and function.Left | | Atrium: The left atrium is normal in size.Right Atrium: The right atrium is normal in | | size.Aortic Valve: The aortic valve appears to be trileaflet.Aortic Valve: Trace amount | | of aortic regurgitation.Aortic Valve: There is no evidence of aortic stenosis.Aortic | | Valve: Aortic valve is mildly thickened.Mitral Valve: No mitral regurgitation.Mitral | | Valve: Mild mitral annular calcification present.Tricuspid Valve: The tricuspid valve | | appears structurally normal.Tricuspid Valve: Mild tricuspid regurgitation | | present.Tricuspid Valve: There is no evidence of pulmonary hypertension.Tricuspid Valve: | | The right ventricular systolic pressure (pulmonary artery systolic pressure), as | | measured by Doppler, is 25.91mmHg.Pulmonic Valve: The pulmonic valve was not well | | visualized.Pericardium: There is no pericardial effusion.IVC/Hepatic Veins: The IVC is | | normal size (1.5-2.5cm) and collapses >50% with sniff, consistent with central venous | | pressures of 5-10mmHg.Aorta: The aortic root, ascending aorta and aortic arch are | | normal.Mass: No mass visualizedThrombus: No clot visualizedThrombus: No vegetation | | visualized.Septum: No ASD observed. MEASUREMENTS Ao asc: 3.29 cmAo Diam: | | 3.31 cmAo sinus: 3.[address] junct: 3.13 cmIVC: 2.17 cmLA Major: 5.66 | | cmEDV(Teich): 78.70 mlIVSd: 0.75 cmLVIDd: 4.20 cmLVPWd: 0.90 cmLVOT Diam: 2.24 | | cm%FS: 30.84 %EF(Teich): 58.84 %ESV(Teich): 32.39 mlLVIDs: 2.90 cmSV(Teich): | | 46.31 mlRA Major: 4.94 cmRV Major: 7.71 cmRV Minor: 3.38 cmRV Minor: 3.03 cmLVEF | | MOD A2C: 59.17 %SV MOD A2C: 35.09 mlLVEF MOD A4C: 61.74 %SV MOD A4C: 42.15 mlEF | | Biplane: 60.65 %LVEDV MOD BP: 63.99 mlLVESV MOD BP: 25.17 mlLVEDV MOD A2C: | | 59.30 mlLVLd A2C: 7.70 cmLVEDV MOD A4C: 68.26 mlLVLd A4C: 7.82 cmLVESV MOD A2C: | | 24.20 mlLVLs A2C: 6.98 cmLVESV MOD A4C: 26.11 mlLVLs A4C: 7.05 cmLAESV(A-L): | | 46.31 mlLAESV Index (A-L): 24.25 ml/m2LAAs A2C: 14.49 [id number] A-L A2C: 33.91 | | mlLAESV MOD A2C: 32.12 mlLALs A2C: 5.25 cmLAAs A4C: 19.79 [id number] A-L A4C: | | 58.12 mlLAESV MOD A4C: 57.48 mlLALs A4C: 5.72 cmRAAs: 18.17 [id number] A-L: 49.96 | | mlRAESV MOD: 49.15 mlRALs: 5.60 cmTAPSE: 2.19 cmAV Env.Ti: 293.90 msAV maxPG: | | 4.91 mmHgAV meanP.41 mmHgAV Vmax: 1.10 m/Milton Vmean: 0.72 m/Milton VTI: 21.23 | | cmAVA Vmax: 3.17 cm2AVA (VTI): 3.89 [id number] Vmax: 0.00 cm2/m2AVAI (VTI): 0.00 | | cm2/m2LVOT Env.Ti: 360.44 msLVOT maxP.14 mmHgLVOT meanP.50 mmHgLVSI Dopp: | | 43.29 ml/m2LVSV Dopp: 82.69 mlLVOT Vmax: 0.88 m/sLVOT Vmean: 0.57 m/sLVOT VTI: | | 20.85 cmMV A Emanuel: 0.67 m/sMV Dec Stanly: 1.81 m/s2MV DecT: 317.65 msMV E Emanuel: | | 0.57 m/sMV E/A Ratio: 0.85E/E' Sept: 11.69E' Lat: 0.08 m/sE' Sept: 0.04 m/sRAP: | | 5 mmHgRV S': 0.12 m/sRVSP: 25.91 mmHgTR maxP.91 mmHgTR Vmax: 2.28 m/s | | Set Up Machinist:Authenticated by: Cici Robles Date/Time: 02-21-2019 19:5:14 | | IMPRESSION: 1. Overall left ventricular systolic function is normal with, an EF between | | 60 - 65 %.2. No regional wall motion abnormalities.3. The right ventricle is normal in | | size and function. | |MEASUREMENTS | | | |Ao asc: 3.29 cm | |Ao Diam: 3.31 cm | |Ao sinus: 3.17 cm | |Ao st junct: 3.13 cm | |IVC: 2.17 cm | |LA Major: 5.66 cm | |EDV(Teich): 78.70 ml | |IVSd: 0.75 cm | |LVIDd: 4.20 cm | |LVPWd: 0.90 cm | |LVOT Diam: 2.24 cm | |%FS: 30.84 % | |EF(Teich): 58.84 % | |ESV(Teich): 32.39 ml | |LVIDs: 2.90 cm | |SV(Teich): 46.31 ml | |RA Major: 4.94 cm | |RV Major: 7.71 cm | |RV Minor: 3.38 cm | |RV Minor: 3.03 cm | |LVEF MOD A2C: 59.17 % | |SV MOD A2C: 35.09 ml | |LVEF MOD A4C: 61.74 % | |SV MOD A4C: 42.15 ml | |EF Biplane: 60.65 % | |LVEDV MOD BP: 63.99 ml | |LVESV MOD BP: 25.17 ml | |LVEDV MOD A2C: 59.30 ml | |LVLd A2C: 7.70 cm | |LVEDV MOD A4C: 68.26 ml | |LVLd A4C: 7.82 cm | |LVESV MOD A2C: 24.20 ml | |LVLs A2C: 6.98 cm | |LVESV MOD A4C: 26.11 ml | |LVLs A4C: 7.05 cm | |LAESV(A-L): 46.31 ml | |LAESV Index (A-L): 24.25 ml/m2 | |LAAs A2C: 14.49 cm2 | |LAESV A-L A2C: 33.91 ml | |LAESV MOD A2C: 32.12 ml | |LALs A2C: 5.25 cm | |LAAs A4C: 19.79 cm2 | |LAESV A-L A4C: 58.12 ml | |LAESV MOD A4C: 57.48 ml | |LALs A4C: 5.72 cm | |RAAs: 18.17 cm2 | |RAESV A-L: 49.96 ml | |RAESV MOD: 49.15 ml | |RALs: 5.60 cm | |TAPSE: 2.19 cm | |AV Env.Ti: 293.90 ms | |AV maxP.91 mmHg | |AV meanP.41 mmHg | |AV Vmax: 1.10 m/s | |AV Vmean: 0.72 m/s | |AV VTI: 21.23 cm | |ARGELIA Vmax: 3.17 cm2 | |ARGELIA (VTI): 3.89 cm2 | |AVAI Vmax: 0.00 cm2/m2 | |AVAI (VTI): 0.00 cm2/m2 | |LVOT Env.Ti: 360.44 ms | |LVOT maxP.14 mmHg | |LVOT meanP.50 mmHg | |LVSI Dopp: 43.29 ml/m2 | |LVSV Dopp: 82.69 ml | |LVOT Vmax: 0.88 m/s | |LVOT Vmean: 0.57 m/s | |LVOT VTI: 20.85 cm | |MV A Emanuel: 0.67 m/s | |MV Dec Stanly: 1.81 m/s2 | |MV DecT: 317.65 ms | |MV E Emanuel: 0.57 m/s | |MV E/A Ratio: 0.85 | |E/E' Sept: 11.69 | |E' Lat: 0.08 m/s | |E' Sept: 0.04 m/s | |RAP: 5 mmHg | |RV S': 0.12 m/s | |RVSP: 25.91 mmHg | |TR maxP.91 mmHg | |TR Vmax: 2.28 m/s | | | |Set Up Machinist: | |Authenticated by: Cici Abraham | |Report Date/Time: 02-21-2019 19:5:14 | | | |IMPRESSION: | |1. Overall left ventricular systolic function is normal with, an EF between 60 - 65 %. | |2. No regional wall motion abnormalities. | |3. The right ventricle is normal in size and function. | + + documented in this encounter Visit Diagnoses Not on filedocumented in this encounter"
--- OUTSIDE RECORDS SUMMARY | ~2019-09-24 | XMS | Encounter Summary ---
Demographics + + + | Address | [address] | | | [place] [address] | + + + | Home Phone | | + + + | Preferred Language | Unknown | + + + | Marital Status | | + + + | Lutheran Affiliation | Unknown | + + + | Race | Unknown | + + + | Ethnic Group | Unknown | + + + Author + + + | Author | [facility] | | | and [place] | + + + | Organization | [facility] | | | [...] Team Providers + +------+ + | Care Process Coach Name | Role | Phone | + [...] Trung AYALA | | | | | [phone] | [place] [address] | | +--------+ + + + + Social History + +-------+ +--------+------+ | Tobacco Use | Types | Packs/Day | Years | Date | | | | | Used | | + +-------+ +--------+------+ | Current Every Day | | 0.2 | 65 | | | Smoker | | | | | + +-------+ +--------+------+ + +---+---+---+ | Smokeless Tobacco: | [...] encounter Results CT Abdomen Pelvis w Contrast (08/23/2019 12:00 AM PST) + + | Specimen [...]
--- OUTSIDE RECORDS SUMMARY | ~2019-09-24 | XMS | Encounter Summary ---
Demographics + + + | Address | [address] | | | [place] [address] | + + + | Home Phone | | + + + | Preferred Language | Unknown | + + + | Marital Status | | + + + | Temple Affiliation | Unknown | + + + | Race | Unknown | + + + | Ethnic Group | Unknown | + + + Author + + + | Author | [facility] | | | and [place] | + + + | Organization | [facility] | | | and [...] Team Providers + +------+ + | Care Web Site Project Manager Name | Role | Phone | + +------+ + | Lizette [place] | PCP | | + +------+ + Reason for Visit + + + | Reason | Comments | + + + | Rectal Problems | metastatic rectal ca with rectal obstruction. Dr. Tyson | | | requests admission to hospitalist for upcoming surgical | | | intervention | + + + Auth/Cert +--------+--------+ + + + + | Status | Reason | Specialty | Diagnoses / | Referred By | Referred To | | | | | Procedures | Contact | Contact | +--------+--------+ + + + + | | | | Diagnoses | | | | | | | Colorectal | | | | | | | tumor | | | | | | | Rectal | | | | | | | obstruction | | | | | | | | | | +--------+--------+ + + + + Encounter Details +--------+---------+ + + + | Date | Type | Department | Care Team | Description | +--------+---------+ + + + | 08/26/ | Surgery | [facility] | Phong Tyson, | LAPAROSCOPIC | | 2019 | | [facility] | [address] | COLOSTOMY CREATION | | | | OPER[address] | [address] | | | | | [address] | [place] [address] | | | | | [place], [place] | [phone] | | | | | [address] | | | | | | [phone] | | | +--------+---------+ + + + [...] + + + | Blood Pressure | 125/65 | 08/30/2019 12:24 PM | | | | | PST | | + + + + + | Pulse | 82 | 08/30/2019 12:24 PM | | | | | PST | | + + + + + | Temperature | 36.8 C (98.2 F) | 08/30/2019 12:24 PM | | | | | PST | | + + + + + | Respiratory Rate | 16 | 08/30/2019 8:40 AM | | | | | PST | | + + + + + | Oxygen Saturation | 96% | 08/30/2019 12:24 PM | | | | | PST | | + + + + + | Inhaled Oxygen | - | - | | | Concentration | | | | + + + + + | Weight | 78.9 kg (173 lb 15.1 | 08/30/2019 5:15 AM | | | | oz) | PST | | + + + + + | Height | 170.2 cm (5' 7") | 08/26/2019 7:52 PM | | | | | PST | | + + + + + | Body Mass Index | 27.24 | 08/26/2019 7:52 PM | | | | | PST [...] + + documented as of this encounter Discharge Summaries Jasmin Barker MD - 08/30/2019 2:35 PM PST [facility] Service: Hospitalist Physician Discharge Summary Patient ID: Kris WALKERN: [id number] 1940 78 y.o. Admit date: 08/25/2019 Discharge date: 08/30/2019 Admitting Physician: Errol Mart MD Discharge Physician: Jasmin Barker MD Consultants: Treatment Team: Phong Tyson MD Primary Discharge Diagnoses: Principal Problem: Rectal mass Active Problems: Hypertension Hyperlipidemia Anemia Colorectal tumor Rectal obstruction HPI and Hospital Course: Mr. Delgado is a 78 yr old man with HTN and HLD presented with 2.5 months of nonradiating LUQ and periumbilical pain associated with watery diarrhea and recently with rectal bleeding. E valuation at an outside ED with CT abdomen and pelvis showed findings suspicious for colorec nahomi CA with near luminal obstruction as well as nodularity in the mesenty and omentum consis tent with metastatic disease. Patient was transferred for colorectal surgery consultation and underwent laparoscopic biopsy of omentum and peritoneal cavity, diverting end loop colos zeus; flexible sigmoidoscopy and biopsy on 08/26/19. He tolerated the procedure well and w as soon advanced to a regular diet. Results of the biopsies are still pending.He was referre d to PT and recommended for a rolling walker. He was intially planned for discharged back to home. His daughter and granddaughter were instructed on colostomy care. However patient exp ressed concern that his house is not fitted for a rolling walker. He agreed for SNF placemen t. He was accepted at [facility]. Referral to a local oncologist was sent. He will follow up with surgery in 2 weeks. Past Medical History: Past Medical History: Diagnosis Date Hyperlipidemia Hypertension 2004 Tobacco abuse Past Surgical History: Procedure Laterality Date COLOSTOMY N/A 08/26/2019 Procedure: LAPAROSCOPIC COLOSTOMY CREATION; Surgeon: Phong Tyson MD; [place] [facility] [place] OTHER SURGICAL HISTORY Left 1985 ORIF ANKLE FRACTURE OTHER SURGICAL HISTORY Bilateral 2017 CATARACT EXTRACTION SIGMOIDOSCOPY N/A 08/26/2019 Procedure: SIGMOIDOSCOPY FLEXIBLE; Surgeon: Phong Tyson MD; [place] [facility] [place] Discharged Condition: Stable for discharge as stated above. Significant Diagnostic Studies: @RISIMPRESS@ Discharge Vitals: Vitals: 08/30/19 0426 08/30/19 0515 08/30/19 0840 08/30/19 1224 BP: 111/61 125/68 125/65 Pulse: 87 86 82 Resp: 14 16 Temp: 36.9 C (98.5 F) 36.9 C (98.4 F) 36.8 C (98.2 F) TempSrc: Oral Axillary Oral SpO2: 95% 96% 96% Weight: 78.9 kg (173 lb 15.1 oz) Height: Discharge Exam: Physical Exam Constitutional: He is oriented to person, place, and time and well-developed, well-nourishe d, and in no distress. HENT: Head: Normocephalic and atraumatic. Eyes: Pupils are equal, round, and reactive to light. Neck: Normal range of motion. No JVD present. Cardiovascular: Normal rate and regular rhythm. No murmur heard. Pulmonary/Chest: Effort normal and breath sounds normal. He has no wheezes. He has no rales . Abdominal: Soft. Bowel sounds are normal. Ostomy in place Musculoskeletal: General: No edema. Lymphadenopathy: He has no cervical adenopathy. Neurological: He is alert and oriented to person, place, and time. No cranial nerve deficit . LABS: Recent Labs Lab 08/30/1942808/29/193 08/28/19417 WBC 8.15 7.91 8.65 RBC 3.69* 3.80* 3.73* HGB 11.7* 12.0* 11.6* HCT 33.7* 34.9* 34.1* MCV 91.5 91.9 91.5 MCH 31.8 31.5 31.2 MCHC 34.7 34.3 34.1 PLT 255 235 241 MPV 9.0 9.0 9.3 DIFFTYPE AUTOMATED AUTOMATED AUTOMATED Recent Labs Lab 08/30/1942808/29/193 08/28/198 08/25/19 1822 NA 140 144 142 < > 142 K 3.9 4.3 4.1 < > 3.5 CL 109 109 111* < > 109 CO2 24 27 24 < > 25 BUN 15 17 25 < > 8 CALCIUM 7.8* 8.0* 8.0* < > 8.3* ALKPHOS 78 -- -- -- 83 ALT 20 -- -- -- 13 AST 17 -- -- -- 20 < > = values in this interval not displayed. No results for input(s): TROPONINT in the last 168 hours. Invalid input(s): CKTOTAL, TROPONINI, CKMBINDEX Recent Labs Lab 08/29/19 0453 08/28/19 0418 08/27/19 0510 PHOS 3.0 2.1* 3.8 Recent Labs Lab 08/29/19 0453 08/28/19 0418 08/27/19 0510 MG 1.7 2.0 2.2 Invalid input(s): ABG Disposition: Follow up: [facility] [place] [id number] [facility] [id number] Go on 09/11/2019 You have an appointment at 0930 on 09/11/2019 with Lizette MOYA [address] [address] Phong Tyson MD [address] [place] [id number] Schedule an appointment as soon as possible for a visit in 2 weeks Discharge Medications New Medications Details oxyCODONE 5 mg tablet Take 1 tablet by mouth every 4 hours as needed for Pain. aka: ROXICODONE polyethylene glycol packet Take 1 diluted packet by mouth Daily as needed for Constipation. aka: MIRALAX Unchanged Medications Details aspirin 325 mg tablet Take 325 mg by mouth daily with breakfast. atorvaSTATin 10 mg tablet Take 10 mg by mouth nightly. aka: LIPITOR MULTIVITAMIN ADULT PO Take 1 tablet by mouth Daily. Discontinued Medications lisinopril 10 mg tablet aka: MARIA LUZ KILGORE MD 08/30/2019 2:36 PM Discharge took , to include final examination, discussion of admission, and preparation of prescriptions, instructions for ongoing care, follow up and dictation of summary. documented in this enco unter Medications at Time of Discharge + + [...] oxyCODONE | Take 1 tablet by | 30 | 0 | 08/30/20 | | | (ROXICODONE) 5 mg | mouth every 4 hours | tablet | | 19 | 9 | | tablet | as needed for Pain. | | | | | + + + +---------+ + + documented as of this encounter Progress Notes Yaquelin Smith RN - 08/30/2019 5:23 AM PSTPt ambulated around entire unit during shift. S upervision used for ambulation and transfers. Daughter has been at bedside throughout shift; daughter has been helping get pt up and to bathroom. Colostomy put out 75 mL mushy brown stool. Pt voiding without difficulty. Pt reports some a bd discomfort; PRN pain meds given x1. Pt alternating sides for sleeping. Pt denies N/V. The call light is within reach; bed is in lowest and locked position. End of shift review c omplete. Yaquelin Smith RN 08/30/19 5:24 AM Soledad Gonzalez RN - 08/29/2019 2:04 PM PST [facility] Service: Ostomy Care Consult Note Hospital Day: 4 SUBJECTIVE Patient Summary: Ostomy nurse in for continued teaching. Family at bedside. 08/29/19 3617 Visit Information Visit Type Initial ostomy/fistula assessement Colostomy 08/26/19 1309 left Placement Date/Time: 08/26/19 1309 Location: left Stoma Appearance round;red;protruding above skin level (from 5-7: mucosa necrosis. Superficial.Red mucosa underlying) Peristomal Skin intact (mucous fistula from 6 to 8 o'clock. Flush with cutaneous) Appliance 2-piece;flat;moldable;leakage;changed;per education/assessment Accessories/Skin Care cleansed with water;skin sealant, Brava Arcs Stoma Function flatus;stool Output Consistency mushy Output Color brown MCJ Appearance Intact MCJ Drainage None Tolerance did not assist with stoma care (Daughters at bedside, attentive) Visit Summary Next Wound/Ostomy Visit Date 08/31/19 OBJECTIVE PROBLEM LIST Patient Active Problem List Diagnosis Tobacco abuse Hypertension Hyperlipidemia Chest pressure Rectal mass Anemia Colorectal tumor Rectal obstruction ASSESSMENT & PLAN Daughters present and attentive for demonstration of appliance change. Plan is to return [facility] for return [facility]. Patient receives his healthcare through the [facility]. CM has c ontacted patient's PCP and they will work with DME to get his ostomy supplies. Ostomy RX fo rm filled out with patient's specific ostomy appliances and JOSE MARIA has faxed this to the PCP. P joey is to provide patient with enough pouching supplies to last 2 weeks (until his post-op a ppointment) [facility] starter kit ordered with pt's permission # [id number] Thank you for allowing me to participate in the care of this patient. Soledad Berger RN, CWON 08/29/2019 14:04 Jasmin Herrmann MD - 08/29/2019 1:18 PM PSTFormatting of this note might be different from the or iginal. [facility] Service: Hospitalist Progress Note Hospital Day: LOS: 4 days SUBJECTIVE Patient Summary: Mr. Delgado is a 78 yr old man with HTN and HLD presented with 2.5 months of nonradiating LUQ and periumbilical pain associated with watery diarrhea and recently with rectal bleeding. E valuation at an outside ED with CT abdomen and pelvis showed findings suspicious for colorec nahomi CA with near luminal obstruction as well as nodularity in the mesenty and omentum consis tent with metastatic disease. Patient was transferred for consultation with colorectal surg faheem. Patient underwent laparoscopic biopsy of omentum and peritoneal cavity, diverting end l oop colostomy; flexible sigmoidoscopy and biopsy on 08/26/19. Events Overnight: Patient was seen today at bedside, tolerated regular diet, still complaining of pain especi ally when moving. He was also concerned about going home with a walker and that his house is not fitted for it. He lives only with a daughter and a teenage granddaughter. Scheduled Medications acetaminophen 1,000 mg Oral 3 times per day atorvaSTATin 10 mg Oral Nightly enoxaparin 40 mg Subcutaneous Daily famotidine 20 mg Oral BID gabapentin 100 mg Oral TID influenza IM vaccine 0.5 mL Intramuscular One Time Vaccine pneumococcal 0.5 mL Intramuscular One Time Vaccine white petrolatum Topical BID Continuous Infusions dextrose 10% lactated ringers 50 mL/hr at 08/28/19 1219 PRN Medications acetaminophen, bisacodyl, Hypoglycemia Management AND POCT Glucose AND dextrose A ND dextrose 10%, hydrALAZINE, HYDROmorphone, HYDROmorphone, ondansetron, ondansetron, oxyC ODONE, oxyCODONE, polyethylene glycol, senna, traZODone OBJECTIVE Vital Signs: BP 119/69 | Pulse 74 | Temp 36.7 C (98 F) (Oral) | Resp 16 | Ht 1.702 m (5' 7") | Wt 78.8 kg (173 lb 11.6 oz) | SpO2 97% | BMI 27.21 kg/m Patient Vitals for the past 24 hrs: BP Temp Temp src Pulse Resp SpO2 Weight 08/29/19 0752 119/69 36.7 C (98 F) Oral 74 16 97 % 08/29/19 0418 115/60 36.7 C (98.1 F) Oral 75 18 96 % 78.8 kg (173 lb 11.6 oz) 08/28/19 2254 111/63 36.4 C (97.5 F) Oral 74 20 97 % 08/28/192021 99/58 36.7 C (98 F) Oral 82 20 95 % 08/28/19 1535 103/56 36.7 C (98.1 F) Oral 85 16 94 % Intake/Output Summary (Last 24 hours) at 08/29/2019 1319 Last data filed at 08/29/2019 0609 Gross per 24 hour Intake 1196 ml Output 1075 ml Net 121 ml Physical Exam Constitutional: He is oriented to person, place, and time. Elderly man, lying in bed, not in any respiratory distress or discomfort HENT: Head: Normocephalic and atraumatic. Mouth/Throat: Oropharynx is clear and moist. Eyes: Pupils are equal, round, and reactive to light. Neck: Normal range of motion. No JVD present. Cardiovascular: Normal rate and regular rhythm. No murmur heard. Pulmonary/Chest: Effort normal and breath sounds normal. He has no wheezes. He has no rales . Abdominal: Soft. Bowel sounds are normal. Colostomy with dark watery stool Musculoskeletal: General: No edema. Lymphadenopathy: He has no cervical adenopathy. Neurological: He is alert and oriented to person, place, and time. No cranial nerve deficit . DATA Recent Results (from the past 24 hour(s)) POC Glucose Result Value Ref Range Glucose, POC 103 (H) 65 - 99 mg/dL CBC with Differential Result Value Ref Range WBC 7.91 3.80 - 11.00 K/uL RBC 3.80 (L) 4.20 - 5.70 M/uL Hemoglobin 12.0 (L) 13.2 - 17.0 g/dL Hematocrit 34.9 (L) 39.0 - 50.0 % MCV 91.9 80.0 - 100.0 fl MCH 31.5 27.0 - 34.0 pg MCHC 34.3 32.0 - 35.5 g/dL RDW-SD 45.5 37 - 53 fl Platelet Count 235 150 - 400 K/uL MPV 9.0 fl Diff Type AUTOMATED % Neutrophils 78.88 % % Lymphocytes 11.24 % Monocyte % 8.41 % Eosinophils % 1.12 % Basophils % 0.35 % Neutrophils, Absolute 6.24 1.90 - 7.40 K/uL Absolute Lymphocytes 0.89 (L) 1.00 - 3.90 K/uL Absolute Monocytes 0.67 0.00 - 0.80 K/uL Eosinophils, Absolute 0.09 0.00 - 0.50 K/uL Basophils, Absolute 0.03 0.00 - 0.10 K/uL Basic Metabolic Panel Result Value Ref Range Na 144 135 - 145 mmol/L K 4.3 3.5 - 4.9 mmol/L Cl 109 99 - 109 mmol/L CO2 27 23 - 32 mmol/L Anion Gap 12 5 - 20 mmol/L Glucose 83 65 - 99 mg/dL BUN 17 8 - 25 mg/dL Creatinine 0.71 0.70 - 1.30 mg/dL BUN/Creatinine Ratio 24 Calcium 8.0 (L) 8.5 - 10.5 mg/dL Estimated GFR >60 >60 mL/min/1.73m2 Magnesium Result Value Ref Range Magnesium 1.7 1.7 - 2.4 mg/dL Phosphorus Result Value Ref Range Phosphorus 3.0 2.3 - 4.8 mg/dL IMAGES Recent Results (from the past 360 hour(s)) XR Chest 1 Vw Narrative CHEST ONE VIEW CLINICAL INFORMATION: Pre operative. COMPARISON: None. FINDINGS: Cardiomediastinal contours are within normal limits. Mild diffuse interstitial prominence more marked along the lung bases and on the right side. Question tiny right pleural effusion. No large effusion. No visible pneumothorax. No acute bony abnormalities. Impression 1. Mild diffuse interstitial opacity suggesting mild interstitial edema with more prominent opacity right lung base which may suggest a combination of edema or atelectasis. 2. Question tiny right pleural effusion. Signed by: Celine Watson, Linda Sign Date/Time: 08/26/2019 6:35 AM PROBLEM LIST Principal Problem: Rectal mass Active Problems: Hypertension Hyperlipidemia Anemia Colorectal tumor Rectal obstruction ASSESSMENT & PLAN Obstructing rectosigmoid Ca S/p diverting end loop colostomy, biopsy Pending histopath results Regular diet started 08/28/19 Prn pain meds Oncology consultation after histopath result HTN Off meds at this time Will continue to monitor Debility Continue PT/OT DVT prophylaxis with lovenox Disposition: Will ask CM to assess for possible SNF placement Code Status: Full Code Jasmin Barker MD 08/29/2019 1:19 PM Sarah SreePRADEEP P - 08/29/2019 8:36 AM PST Colorectal Surgery Progress Note Pt. Name/Age/: Kris Delgado 78 y.o. 1940 Med. Record Number: [id number] Date of admission: 08/25/2019 Service(s): Colorectal Surgery Subjective Doing well. C/o abdominal pain with movement. Tolerating a general diet, no nausea and vom iting. His colostomy is passing gas and loose stool. He is ambulatory. Vitals and labs st able. Objective Vitals: BP 119/69 | Pulse 74 | Temp 36.7 C (98 F) (Oral) | Resp 16 | Ht 1.702 m (5' 7") | Wt 78.8 kg (173 lb 11.6 oz) | SpO2 97% | BMI 27.21 kg/m Wt. Admission: Weight: 81.1 kg (178 lb 12.7 oz) Wt. Current: Weight: 78.8 kg (173 lb 11 .6 oz) Body mass index is 27.21 kg/m. I&O: Intake/Output Summary (Last 24 hours) at 08/29/2019 0836 Last data filed at 08/29/2019 0609 Gross per 24 hour Intake 1196 ml Output 1225 ml Net -29 ml 08/27 1901 - 08/29 0700 In: 2215 [P.O.:600; I.V.:1615] Out: 1925 [Urine:1600] Exam Physical Exam Vitals signs and nursing note reviewed. Exam conducted with a process pumper present. Cardiovascular: Rate and Rhythm: Normal rate. Pulmonary: Effort: Pulmonary effort is normal. Abdominal: General: Abdomen is flat. There is no distension. Palpations: There is no mass. Tenderness: There is no tenderness. There is no guarding or rebound. Hernia: No hernia is present. Skin: General: Skin is warm and dry. Neurological: Mental Status: He is alert and oriented to person, place, and time. Psychiatric: Mood and Affect: Mood normal. Behavior: Behavior normal. Labs: Recent Labs 08/29/19 0453 08/28/19 0418 WBC 7.91 8.65 HGB 12.0* 11.6* HCT 34.9* 34.1* PLT 235 241 MCV 91.9 91.5 Recent Labs 08/29/19 0453 08/28/19 0418 NA 144 142 K 4.3 4.1 CL 109 111* CO2 27 24 BUN 17 25 CREA 0.71 0.7 CALCIUM 8.0* 8.0* MG 1.7 2.0 PHOS 3.0 2.1* Scheduled Meds: acetaminophen 1,000 mg Oral 3 times per day atorvaSTATin 10 mg Oral Nightly enoxaparin 40 mg Subcutaneous Daily famotidine 20 mg Oral BID gabapentin 100 mg Oral TID white petrolatum Topical BID Continuous Infusions: dextrose 10% lactated ringers 50 mL/hr at 08/28/19 1219 PRN Meds:.acetaminophen, bisacodyl, Hypoglycemia Management AND POCT Glucose AND de xtrose AND dextrose 10%, hydrALAZINE, HYDROmorphone, HYDROmorphone, ondansetron, ondanse sandhya, oxyCODONE, oxyCODONE, polyethylene glycol, senna, traZODone Assessment 78 y.o. male 3 Days Post-Op s/p laparoscopic colostomy Plan / Recommendations 1. Encourage ambulation 2. General diet ok 3. Continue ostomy teaching 4. Ok to discharge from colorectal perspective once medically stable and has had adequate o stomy teaching most likely tomorrow 5. No lifting > 10 lbs for 4 weeks from surgery 6. F/U with oncology 7. F/U in our clinic in 2 weeks 8. Ok to shower, no baths swimming or hot tubs for 8 weeks 9. We will sign off at this time. If there are any further questions or concerns please do n't hesitate to call us back A/P discussed with AARON Arias 8:36 AM; 08/29/2019 Yaquelin Izquierdo RN - 08/29/2019 5:30 AM PSTPt ambulated in curry once with family during shift. Pt has alter nated laying on either side throughout shift. Colostomy put out 175 mL dark brown stool; pt has been voiding. Family has been at bedside throughout shift. Pt has been able to get in an d out of bed with no physical assistance from staff. The call light is within reach; bed is in lowest and locked position. End of shift review c omplete. Yaquelin Smith RN 08/29/19 5:31 AM Giuliano Peralat DO - 2:50 PM PST PROGRESS NOTE for Julyludivina Delgado on the hospitalist service. 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 Adv ance diet and encourage ambulation. Patient/family need ostomy teaching. Path still pending, once available he can f/u with heme/onc, either Dr Malik here in [facility] or supposedly there is a heme/onc Dr in the [facility] (where they live). HTN BP's remain low-normal and his home rx lisinopril is held. Problem list: Principal Problem: Rectal mass Active Problems: Hypertension Hyperlipidemia Anemia Colorectal tumor Rectal obstruction Length of stay: 3 days Disposition: inpatient SUBJECTIVE Patient seen/examined, family present, they see significant improvements with him, he is wa lking further and tolerating liquid diet. OBJECTIVE BP 108/61 | Pulse 83 | Temp 36.7 C (98.1 F) (Oral) | Resp 16 | Ht 1.702 m (5' 7") | Wt 81.1 kg (178 lb 12.7 oz) | SpO2 97% | BMI 28.00 kg/m Physical exam: AOx3 NAD ORUTSARARMIUT Heart RRR Lungs CTa Abd SNTND +BS Ostomy has stool output Giuliano Villaseñor DO 08/28/2019 2:50 PM Sree Smith ARN P - 08/28/2019 8:17 AM PST Colorectal Surgery Progress Note Pt. Name/Age/: Kris Delgado 78 y.o. 1940 Med. Record Number: [id number] Date of admission: 08/25/2019 Service(s): Colorectal Surgery Subjective Doing well. He is complaining of severe lower back/buttock pain. Denies abdominal pain. Tolerating a general diet, no nausea and vomiting. He is ambulatory. Vitals and labs stabl e. Objective Vitals: BP 104/61 | Pulse 76 | Temp 37 C (98.6 F) (Oral) | Resp 15 | Ht 1.702 m (5' 7") | Wt 81.1 kg (178 lb 12.7 oz) | SpO2 96% | BMI 28.00 kg/m Wt. Admission: Weight: 81.1 kg (178 lb 12.7 oz) Wt. Current: Weight: 81.1 kg (178 lb 12 .7 oz) Body mass index is 28 kg/m. I&O: Intake/Output Summary (Last 24 hours) at 08/28/2019 1150 Last data filed at 08/28/2019 0600 Gross per 24 hour Intake 2458 ml Output 1443 ml Net 1015 ml 08/26 1901 - 08/28 0700 In: 4005 [P.O.:1800; I.V.:2205] Out: 1443 [Urine:1243] Exam Physical Exam Vitals signs and nursing note reviewed. Exam conducted with a process pumper present. Cardiovascular: Rate and Rhythm: Normal rate. Pulmonary: Effort: Pulmonary effort is normal. Abdominal: General: Abdomen is flat. There is no distension. Palpations: There is no mass. Tenderness: There is no tenderness. There is no guarding or rebound. Hernia: No hernia is present. Skin: General: Skin is warm and dry. Neurological: Mental Status: He is alert and oriented to person, place, and time. Labs: Recent Labs 08/28/19 0418 08/27/19 0510 WBC 8.65 12.06* HGB 11.6* 12.1* HCT 34.1* 35.4* PLT 241 251 MCV 91.5 91.6 Recent Labs 08/28/19 0418 08/27/19 0510 NA 142 140 K 4.1 4.2 CL 111* 109 CO2 24 18* BUN 25 17 CREA 0.7 0.8 CALCIUM 8.0* 8.1* MG 2.0 2.2 PHOS 2.1* 3.8 Scheduled Meds: acetaminophen 1,000 mg Oral 3 times per day atorvaSTATin 10 mg Oral Nightly enoxaparin 40 mg Subcutaneous Daily famotidine 20 mg Oral BID gabapentin 100 mg Oral TID white petrolatum Topical BID Continuous Infusions: dextrose 10% lactated ringers 50 mL (08/28/19 0843) PRN Meds:.acetaminophen, bisacodyl, Hypoglycemia Management AND POCT Glucose AND de xtrose AND dextrose 10%, hydrALAZINE, HYDROmorphone, HYDROmorphone, ondansetron, ondanse sandhya, oxyCODONE, oxyCODONE, polyethylene glycol, senna, traZODone Assessment 78 y.o. male 2 Days Post-Op s/p laparoscopic colostomy Plan / Recommendations 1. Encourage ambulation 2. General diet ok 3. asbestos remover consult and teaching AARON Bull 11:50 AM; 08/28/2019 Ayde Randall RN - 08/28/2019 7:53 AM PSTPt refusing waffle mattress, family and pt educated on q 2 turning instead Chart check complete Shade Larsen RN 08/28/19 @7:53 AM Giuliano Peralta DO - 08/27/2019 8:29 AM PST PROGRESS NOTE for Kris Delgado on the hospitalist service. 08/27/2019 ASSESSMENT & PLAN Rectal mass with evidence of metastasis and obstruction Now treated with bypass, with biopsies, on 08/26, colorectal surg consulting, await path an d further recs from interdisciplinary team on how best to proceed. Meantime he is on CLD and we will observe for tolerance / GI fxn. Encourage ambulation. HTN Restarted home rx lisinopril but BP's soft today, lisinopril to be held for now, continue I V fluid. Problem list: Principal Problem: Rectal mass Active Problems: Hypertension Hyperlipidemia Anemia Colorectal tumor Rectal obstruction Length of stay: 2 days Disposition: inpatient SUBJECTIVE Patient seen/examined, family present, had a "rough night" with pain but eventually it came under control and he's feeling better this morning. OBJECTIVE BP 91/55 | Pulse 78 | Temp 36.7 C (98 F) (Oral) | Resp 18 | Ht 1.702 m (5' 7") | W t 81.1 kg (178 lb 12.7 oz) | SpO2 95% | BMI 28.00 kg/m Physical exam: NAD AOx3 ORUTSARARMIUT Heart RRR Lungs CTA Abd SNTND +BS few Giuliano Villaseñor DO 08/27/2019 8:29 AM Donna Stanton RN - 1 10/26/2018 6:17 PM PSTPatient consuming coffee, tea and IMPACT. Giuliano Peralta DO - 08/26/2019 3:31 PM PST PROGRESS NOTE for Kris Delgado on the hospitalist service. 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 HTN Restart home rx lisinopril. Problem list: Principal Problem: Rectal mass Active Problems: Hypertension Hyperlipidemia Anemia Colorectal tumor Rectal obstruction Length of stay: 1 days Disposition: inpatient SUBJECTIVE Patient seen/examined in PACU, groggy after surgery, no questions at present. OBJECTIVE BP 96/55 | Pulse 78 | Temp 36.5 C (97.7 F) (Oral) | Resp 20 | Wt 81.1 kg (178 lb 12 .7 oz) | SpO2 97% | BMI 28.00 kg/m Physical exam: AOx3 NAD ORUTSARARMIUT Heart RRR Lungs CTA Abd SNTND ostomy appears normal I spent over 35 minutes in reviewing patient s data, examination of patient and discussin g care of patient with patient and family. At least, 50% of time was face to face counseling or coordinating of care. Giuliano Villaseñor DO 08/26/2019 3:31 PM Shade Randall RN - 08/26/2019 7:47 AM PSTA/ox4, pt NPO since 0000, having dark BMs no fresh blood, and v oiding, uppers and lower dentures, hard of hearing in left ear, independent. Chart check complete Shade Larsen RN 08/26/19 @7:47 AM Valentín Navarro [facility] - 08/25/2019 7:41 PM PSTRx Admission Medication History Note I have reviewed the medication history for appropriate doses obtained by: ED Pharmacist After reviewing the home medication list : I agree with the home medications list. 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 - removed lopermaide. Per family took one time and did not help, so patient is not taking. - last took all medications 08/21/19. - added daily multivitamin. Please Review and Order Home Medications as necessary. Thanks BRAYDEN MARION, Rosita 08/25/2019 7:39 PM docujavier in t his encounter Plan of Treatment + +------+--------+ + + | Name | Type | Priori | Associated Diagnoses | Date/Time | | | | ty | | | + +------+--------+ + + | ED INFORMATION | EUGENE | Routin | | 08/25/2019 4:36 PM | | EXCHANGE | | e | | PST | + +------+--------+ + + documented as of this encounter [...] | | n - | | | 11/22/ | | | 2019 | | | [...] J?MRN: | | | | | | [id number] | | | [id number] | | | riteri | | | [...] | | | St. | | | [place] | | | y | | | [...] | | | St. | | | [place] | | | y H. | | [...] | | | St. | | | [place] | | | y H. | | [...] | | | 1-103a | | | [id number] | | | 41 | | | [...] [email or web address] | | | m | +---+--------+ documented in this encounter Results Comprehensive Metabolic Panel (08/30/2019 4:29 AM PST) + + + + + [...] 20 | 10 - 65 U/L | [facility] | | | | | | [facility] | | + + + + + + | Estimated | >60Comment: GFR <60: | >60 | [facility] | | | GFR | CHRONIC [...] | | | | | performed at [facility], [address] | | | | | | [facility], | | | | | | [place] [address] | | | | + + + + + + + + | Specimen | + + | Blood | + + + + + + + | Performing | Address | City/State/Zipcode | Phone Number | | Organization | | | | + + + + + | [facility] | [address] | [place] [address] | [phone] | + + + + + CBC with Differential (08/30/2019 4:29 AM PST) + + + + + [...] | | | Absolute | performed at [facility], [address] | K/uL | LABORATORY | | | | [address], | | | | | | [place] [address] | | | | + + + + + + + + | Specimen | + + | Blood | + + + + + + + | Performing | Address | City/State/Zipcode | Phone Number | | Organization | | | | + + + + + | [facility] | [address] | [place] [address] | [phone] | + + + + + Phosphorus (08/29/2019 4:53 AM PST) + + + + + + | Component | Value | Ref Range | Performed | Pathologist | | | | | At | Signature | + + + + + + | Phosphorus | 3.0Comment: Testing | 2.3 - 4.8 mg/dL | [facility] | | | | performed at [facility];[address] | | LABORATORY | | | | [address];[place] | | | | | | [address] | | | | + + + + + + + + | Specimen | + + | Blood | + + + + + + + | Performing | Address | City/State/Zipcode | Phone Number | | Organization | | | | + + + + + | [facility] | [address] [facility] | [place] [address] | [phone] | + + + + + Magnesium (08/29/2019 4:53 AM PST) + + + + + + | Component | Value | Ref Range | Performed | Pathologist | | | | | At | Signature | + + + + + + | Magnesium | 1.7Comment: Testing | 1.7 - 2.4 mg/dL | [facility] | | | | performed at [facility];[address] | | LABORATORY | | | | [address];[place], [place] | | | | | | [address] | | | | + + + + + + + + | Specimen | + + | Blood | + + + + + + + | Performing | Address | City/State/Zipcode | Phone Number | | Organization | | | | + + + + + | [facility] | [address] | [place] [address] | [phone] | + + + + + Basic Metabolic Panel (08/29/2019 4:53 AM PST) + + + + + [...] | | | | | | MDRD IDCA traceable | | | | | | equation.Testing | | | | | | performed at [facility];[address] | | | | | | [facility];[place], [place] | | | | | | [address] | | | | + + + + + + + + | Specimen | + + | Blood | + + + + + + + | Performing | Address | City/State/Zipcode | Phone Number | | Organization | | | | + + + + + | [facility] | [address] | [place] [address] | [phone] | + + + + + CBC with Differential (08/29/2019 4:53 AM PST) + + + + + + | Component | Value | Ref Range | Performed | Pathologist | | | | | At | Signature | + + + + + + | WBC | 7.91 | 3.80 - 11.00 | [facility] | | | | | K/uL | LABORATORY | | + + + + + + | RBC | 3.80 (L) | 4.20 - 5.70 | [facility] | | | | | M/uL | LABORATORY | | + + + + + + | Hemoglobin | 12.0 (L) | 13.2 - 17.0 | [facility] | | | | | g/dL | LABORATORY | | + + + + + + | Hematocrit | 34.9 (L) | 39.0 - 50.0 % | [facility] | | | | | | LABORATORY | | + + + + + + | MCV | 91.9 | 80.0 - 100.0 fl | [facility] | | | | | | LABORATORY | | + + + + + + | MCH | 31.5 | 27.0 - 34.0 pg | [facility] | | | | | | LABORATORY | | + + + + + + | MCHC | 34.3 | 32.0 - 35.5 | [facility] | | | | | g/dL | LABORATORY | | + + + + + + | RDW-SD | 45.5 | 37 - 53 fl | [facility] | | | | | | LABORATORY | | + + + + + + | Platelet | 235 | 150 - 400 K/uL | [facility] [...] + + + + | % | 78.88 | % | [facility] | | | Neutrophils | | | LABORATORY | | + + + + + + | % | 11.24 | % | [facility] | | | Lymphocytes | | | LABORATORY | | + + + + + + | Monocyte % | 8.41 | % | [facility] | | | | | | LABORATORY | | + + + + + + | Eosinophils | 1.12 | % | [facility] | | | % | | | LABORATORY | | + + + + + + | Basophils % | 0.35 | % | [facility] | | | | | | LABORATORY | | + + + + + + | Neutrophils | 6.24 | 1.90 - 7.40 | [facility] | | | , Absolute | | K/uL | LABORATORY | | + + + + + + | Absolute | 0.89 (L) | 1.00 - 3.90 | [facility] | | | Lymphocytes | | K/uL | LABORATORY | | + + + + + + | Absolute | 0.67 | 0.00 - 0.80 | [facility] | | | Monocytes | | K/uL | LABORATORY | | + + + + + + | Eosinophils | 0.09 | 0.00 - 0.50 | [facility] | | | , Absolute | | K/uL | LABORATORY | | + + + + + + | Basophils, | 0.03Comment: Testing | 0.00 - 0.10 | [facility] | | | Absolute | performed at [facility];[address] | [address] | LABORATORY | | | | [address];[place], [place] | | | | | | [address] | | | | + + + + + + + + | Specimen | + + | Blood | + + + + + + + | Performing | Address | City/State/Zipcode | Phone Number | | Organization | | | | + + + + + | [facility] | [address] | [place] [address] | [phone] | + + + + + POC Glucose (08/28/2019 4:41 PM PST) + + + + + + | Component | Value | Ref Range | Performed | Pathologist | | | | | At | Signature | + + + + + + | Glucose, | 103 (H)Comment: Testing | 65 - 99 mg/dL | [facility] | | | POC | performed at [facility];[address] | | LABORATORY | | | | [address];[place], [place] | | | | | | [address] | | | | + + + + + + + + | Specimen | + + | | + + + + + + + | Performing | Address | City/State/Zipcode | Phone Number | | Organization | | | | + + + + + | [facility] | [address] | [place] [address] | [phone] | + + + + + POC Glucose (08/28/2019 12:11 PM PST) + + + + + + | Component | Value | Ref Range | Performed | Pathologist | | | | | At | Signature | + + + + + + | Glucose, | 101 (H)Comment: Testing | 65 - 99 mg/dL | [facility] | | | POC | performed at [facility];[address] | | LABORATORY | | | | [address];[place] | | | | | | [address] | | | | + + + + + + + + | Specimen | + + | | + + + + + + + | Performing | Address | City/State/Zipcode | Phone Number | | Organization | | | | + + + + + | [facility] | [address] | [place] [address] | [phone] | + + + + + POC Glucose (08/28/2019 8:48 AM PST) + + + + + + | Component | Value | Ref Range | Performed | Pathologist | | | | | At | Signature | + + + + + + | Glucose, | 98Comment: Testing | 65 - 99 mg/dL | [facility] | | | POC | performed at [facility];[address] | | LABORATORY | | | | [address];[place] | | | | | | [address] | | | | + + + + + + + + | Specimen | + + | | + + + + + + + | Performing | Address | City/State/Zipcode | Phone Number | | Organization | | | | + + + + + | [facility] | [address] | [place] [address] | [phone] | + + + + + Phosphorus (08/28/2019 4:18 AM PST) + + + + + + | Component | Value | Ref Range | Performed | Pathologist | | | | | At | Signature | + + + + + + | Phosphorus | 2.1 (L)Comment: Testing | 2.3 - 4.8 mg/dL | [facility] | | | | performed at [facility], [address] | | LABORATORY | | | | [address], | | | | | | [place] [address] | | | | + + + + + + + + | Specimen | + + | Blood | + + + + + + + | Performing | Address | City/State/Zipcode | Phone Number | | Organization | | | | + + + + + | [facility] | [address] | [place] [address] | [phone] | + + + + + Magnesium (08/28/2019 4:18 AM PST) + + + + + + | Component | Value | Ref Range | Performed | Pathologist | | | | | At | Signature | + + + + + + | Magnesium | 2.0Comment: Testing | 1.7 - 2.4 mg/dL | [facility] | | | | performed at [facility], [address] | | LABORATORY | | | | [address], | | | | | | [place] [address] | | | | + + + + + + + + | Specimen | + + | Blood | + + + + + + + | Performing | Address | City/State/Zipcode | Phone Number | | Organization | | | | + + + + + | [facility] | [address] | [place] [address] | [phone] | + + + + + Basic Metabolic Panel (08/28/2019 4:18 AM PST) + + + + + + | Component | Value | Ref Range | Performed | Pathologist | | | | | At | Signature | + + + + + + | Na | 142 | 135 - 145 | [facility] | | | | | mmol/L | LABORATORY | | + + + + + + | K | 4.1 | 3.5 - 4.9 | [facility] | | | | | mmol/L | LABORATORY | | + + + + + + | Cl | 111 (H) | 99 - 109 mmol/L | [facility] [...] + + + + | Glucose | 110 (H) | 65 - 99 mg/dL | [facility] | | | | | | LABORATORY | | + + + + + + | BUN | 25 | 8 - 25 mg/dL | [facility] | | | | | | LABORATORY | | + + + + + + | Creatinine | 0.7 | 0.70 - 1.30 | [facility] | | | | | mg/dL | LABORATORY | | + + + + + + | BUN/Creatin | 36 | | [facility] | | | ine [...] | | | | | performed at [facility], [address] | | | | | | [address], | | | | | | [place] [address] | | | | + + + + + + + + | Specimen | + + | Blood | + + + + + + + | Performing | Address | City/State/Zipcode | Phone Number | | Organization | | | | + + + + + | [facility] | [address] | [place] [address] | [phone] | + + + + + CBC with Differential (08/28/2019 4:18 AM PST) + + + + + + | Component | Value | Ref Range | Performed | Pathologist | | | | | At | Signature | + + + + + + | WBC | 8.65 | 3.80 - 11.00 | [facility] | | | | | K/uL | LABORATORY | | + + + + + + | RBC | 3.73 (L) | 4.20 - 5.70 | [facility] | | | | | M/uL | LABORATORY | | + + + + + + | Hemoglobin | 11.6 (L) | 13.2 - 17.0 | [facility] | | | | | g/dL | LABORATORY | | + + + + + + | Hematocrit | 34.1 (L) | 39.0 - 50.0 % | [facility] | | | | | | LABORATORY | | + + + + + + | MCV | 91.5 | 80.0 - 100.0 fl | [facility] | | | | | | LABORATORY | | + + + + + + | MCH | 31.2 | 27.0 - 34.0 pg | [facility] | | | | | | LABORATORY | | + + + + + + | MCHC | 34.1 | 32.0 - 35.5 | [facility] | | | | | g/dL | LABORATORY | | + + + + + + | RDW-SD | 44.6 | 37 - 53 fl | [facility] | | | | | | LABORATORY | | + + + + + + | Platelet | 241 | 150 - 400 K/uL | [facility] | | | Count | | | LABORATORY | | + + + + + + | MPV | 9.3 | fl | [facility] | | | | | | LABORATORY | | + + + + + + | Diff Type | AUTOMATED | | [facility] | | | | | | LABORATORY | | + + + + + + | % | 79.91 | % | [facility] | | | Neutrophils | | | LABORATORY | | + + + + + + | % | 9.61 | % | [facility] | | | Lymphocytes | | | LABORATORY | | + + + + + + | Monocyte % | 9.61 | % | [facility] | | | | | | LABORATORY | | + + + + + + | Eosinophils | 0.53 | % | [facility] | | | % | | | LABORATORY | | + + + + + + | Basophils % | 0.34 | % | [facility] | | | | | | LABORATORY | | + + + + + + | Neutrophils | 6.91 | 1.90 - 7.40 | [facility] | | | , Absolute | | K/uL | LABORATORY | | + + + + + + | Absolute | 0.83 (L) | 1.00 - 3.90 | [facility] | | | Lymphocytes | | K/uL | LABORATORY | | + + + + + + | Absolute | 0.83 (H) | 0.00 - 0.80 | [facility] | | | Monocytes | | K/uL | LABORATORY | | + + + + + + | Eosinophils | 0.05 | 0.00 - 0.50 | [facility] | | | , Absolute | | K/uL | LABORATORY | | + + + + + + | Basophils, | 0.03Comment: Testing | 0.00 - 0.10 | [facility] | | | Absolute | performed at [facility], [address] | [address] | LABORATORY | | | | [address], | | | | | | [place] [address] | | | | + + + + + + + + | Specimen | + + | Blood | + + + + + + + | Performing | Address | City/State/Zipcode | Phone Number | | Organization | | | | + + + + + | [facility] | [address] | [place] [address] | [phone] | + + + + + POC Glucose (08/27/2019 8:35 PM PST) + + + + + + | Component | Value | Ref Range | Performed | Pathologist | | | | | At | Signature | + + + + + + | Glucose, | 129 (H)Comment: Testing | 65 - 99 mg/dL | [facility] | | | POC | performed at [facility];[address] | | LABORATORY | | | | [address];[place] | | | | | | [address] | | | | + + + + + + + + | Specimen | + + | | + + + + + + + | Performing | Address | City/State/Zipcode | Phone Number | | Organization | | | | + + + + + | [facility] | [address] | [place] [address] | [phone] | + + + + + POC Glucose (08/27/2019 12:05 PM PST) + + + + + + | Component | Value | Ref Range | Performed | Pathologist | | | | | At | Signature | + + + + + + | Glucose, | 99Comment: Testing | 65 - 99 mg/dL | [facility] | | | POC | performed at [facility];[address] | | LABORATORY | | | | [address];[place], [place] | | | | | | [address] | | | | + + + + + + + + | Specimen | + + | | + + + + + + + | Performing | Address | City/State/Zipcode | Phone Number | | Organization | | | | + + + + + | [facility] | [address] | [place] [address] | [phone] | + + + + + POC Glucose (08/27/2019 8:01 AM PST) + + + + + + | Component | Value | Ref Range | Performed | Pathologist | | | | | At | Signature | + + + + + + | Glucose, | 85Comment: Testing | 65 - 99 mg/dL | [facility] | | | POC | performed at [facility];[address] | | LABORATORY | | | | [address];[place] | | | | | | [address] | | | | + + + + + + + + | Specimen | + + | | + + + + + + + | Performing | Address | City/State/Zipcode | Phone Number | | Organization | | | | + + + + + | [facility] | [address] | [place] [address] | [phone] | + + + + + Phosphorus (08/27/2019 5:10 AM PST) + + + + + + | Component | Value | Ref Range | Performed | Pathologist | | | | | At | Signature | + + + + + + | Phosphorus | 3.8Comment: Testing | 2.3 - 4.8 mg/dL | [facility] | | | | performed at [facility], [address] | | LABORATORY | | | | [address], | | | | | | [place] [address] | | | | + + + + + + + + | Specimen | + + | Blood | + + + + + + + | Performing | Address | City/State/Zipcode | Phone Number | | Organization | | | | + + + + + | [facility] | [address] | [place] [address] | [phone] | + + + + + Magnesium (08/27/2019 5:10 AM PST) + + + + + + | Component | Value | Ref Range | Performed | Pathologist | | | | | At | Signature | + + + + + + | Magnesium | 2.2Comment: Testing | 1.7 - 2.4 mg/dL | [facility] | | | | performed at [facility], [address] | | LABORATORY | | | | [place], | | | | | | [place] [address] | | | | + + + + + + + + | Specimen | + + | Blood | + + + + + + + | Performing | Address | City/State/Zipcode | Phone Number | | Organization | | | | + + + + + | [facility] | [address] | [place] [address] | [phone] | + + + + + Basic Metabolic Panel (08/27/2019 5:10 AM PST) + + + + + + | Component | Value | Ref Range | Performed | Pathologist | | | | | At | Signature | + + + + + + | Na | 140 | 135 - 145 | [facility] | | | | | mmol/L | LABORATORY | | + + + + + + | K | 4.2 | 3.5 - 4.9 | [facility] | | | | | mmol/L | LABORATORY | | + + + + + + | Cl | 109 | 99 - 109 mmol/L | [facility] | | | | | | LABORATORY | | + + + + + + | CO2 | 18 (L) | 23 - 32 mmol/L | [facility] | | | | | | LABORATORY | | + + + + + + | Anion Gap | 17 | 5 - 20 mmol/L | [facility] | | | | | | LABORATORY | | + + + + + + | Glucose | 85 | 65 - 99 mg/dL | [facility] | | | | | | LABORATORY | | + + + + + + | BUN | 17 | 8 - 25 mg/dL | [facility] | | | | | | LABORATORY | | + + + + + + | Creatinine | 0.8 | 0.70 - 1.30 | [facility] | | | | | mg/dL | LABORATORY | | + + + + + + | BUN/Creatin | 21 | | [facility] | | | ine Ratio | | | LABORATORY | | + + + + + + | Calcium | 8.1 (L) | 8.5 - 10.5 | [facility] | | | | | mg/dL | LABORATORY | | + + + + + + | Estimated | >60Comment: GFR <60: | >60 | [facility] | | | GFR | CHRONIC [...] | | | | | | MDRD IDCA traceable | | | | | | equation.Testing | | | | | | performed at [facility], [address] | | | | | | [facility], | | | | | | [place] [address] | | | | + + + + + + + + | Specimen | + + | Blood | + + + + + + + | Performing | Address | City/State/Zipcode | Phone Number | | Organization | | | | + + + + + | [facility] | [address] | [place] [address] | [phone] | + + + + + CBC with Differential (08/27/2019 5:10 AM PST) + + + + + + | Component | Value | Ref Range | Performed | Pathologist | | | | | At | Signature | + + + + + + | WBC | 12.06 (H) | 3.80 - 11.00 | [facility] | | | | | K/uL | LABORATORY | | + + + + + + | RBC | 3.86 (L) | 4.20 - 5.70 | [facility] | | | | | M/uL | LABORATORY | | + + + + + + | Hemoglobin | 12.1 (L) | 13.2 - 17.0 | [facility] | | | | | g/dL | LABORATORY | | + + + + + + | Hematocrit | 35.4 (L) | 39.0 - 50.0 % | [facility] | | | | | | LABORATORY | | + + + + + + | MCV | 91.6 | 80.0 - 100.0 fl | [facility] | | | | | | LABORATORY | | + + + + + + | MCH | 31.3 | 27.0 - 34.0 pg | [facility] | | | | | | LABORATORY | | + + + + + + | MCHC | 34.2 | 32.0 - 35.5 | [facility] | | | | | g/dL | LABORATORY | | + + + + + + | RDW-SD | 44.6 | 37 - 53 fl | [facility] | | | | | | LABORATORY | | + + + + + + | Platelet | 251 | 150 - 400 K/uL | [facility] | | | Count | | | LABORATORY | | + + + + + + | MPV | 9.3 | fl | [facility] | | | | | | LABORATORY | | + + + + + + | Diff Type | MANUAL | | [facility] | | | | | | LABORATORY | | + + + + + + | % Segmented | 78 | % | [facility] | | | | | | LABORATORY | | | Neutrophils | | | | | + + + + + + | % Bands | 5 | % | [facility] | | | | | | LABORATORY | | + + + + + + | % | 9 | % | [facility] | | | Lymphocytes | | | LABORATORY | | + + + + + + | % Monocytes | 8 | % | [facility] | | | | | | LABORATORY | | + + + + + + | Neutrophils | 9.41 (H) | 1.90 - 7.40 | [facility] | | | , Absolute | | K/uL | LABORATORY | | + + + + + + | Absolute | 0.60 (H) | 0.00 - 0.20 | [facility] | | | Band | | K/uL | LABORATORY | | | Neutrophils | | | | | + + + + + + | Absolute | 1.09 | 1.00 - 3.90 | [facility] | | | Lymphocytes | | K/uL | LABORATORY | | + + + + + + | Absolute | 0.96 (H) | 0.00 - 0.80 | [facility] | | | Monocytes | | K/uL | LABORATORY | | + + + + + + | RBC | RBC AND PLT MORPHOLOGY | | [facility] | | | Morphology | APPEAR NORMALComment: | | LABORATORY | | | | Testing performed at | | | | | | [facility], [address] | | | | | | [place] | | | | | | [address] | | | | + + + + + + + + | Specimen | + + | Blood | + + + + + + + | Performing | Address | City/State/Zipcode | Phone Number | | Organization | | | | + + + + + | [facility] | [address] | [place] [address] | [phone] | + + + + + POC Glucose (08/27/2019 4:06 AM PST) + + + + + + | Component | Value | Ref Range | Performed | Pathologist | | | | | At | Signature | + + + + + + | Glucose, | 81Comment: Testing | 65 - 99 mg/dL | [facility] | | | POC | performed at [facility];[address] | [address] | | | | [address];[place], [place] | | | | | | [address] | | | | + + + + + + + + | Specimen | + + | | + + + + + + + | Performing | Address | City/State/Zipcode | Phone Number | | Organization | | | | + + + + + | [facility] | [address] | [place] [address] | [phone] | + + + + + POC Glucose (08/26/2019 9:14 PM PST) + + + + + + | Component | Value | Ref Range | Performed | Pathologist | | | | | At | Signature | + + + + + + | Glucose, | 101 (H)Comment: Testing | 65 - 99 mg/dL | [facility] | | | POC | performed at [facility];[address] | [address] | | | [address];[place] | | | | | | [address] | | | | + + + + + + + + | Specimen | + + | | + + + + + + + | Performing | Address | City/State/Zipcode | Phone Number | | Organization | | | | + + + + + | [facility] | [address] | [place] [address] | [phone] | + + + + + Surgical [...] of the | | | rectum (see [id number]). As part of [facility]' Quality | | | Improvement Program, this [...] surfaceis barker-yellow and lobulated. | | | [employer] sections are submitted in cassette (A1). B. [...] is barker-yellow and | | | lobulated. [employer] sections are submitted incassette (B1). | | [...] component was performed | | | by [facility], [address] [place] [id number] (Medical | | | Director: Yenny Young MD; CLIA# [id number]). Professional | | | [facility] was [facility] | | | [address] [address] (Medical | | | Director: Kenyon Delacruz M.D.; CLIA#: [id number]). REASON FOR | | | ADDENDUM:Results of [...] | | | preparation) was performed at [facility]. | | | Interpretation was performed at [facility]. | | | Immunohistochemical studies and/or special stains were performed on | | | this case with the appropriate controls, which stain appropriately. | | | These tests were developed and their performance characteristics | | | determined by [facility] and/or [facility]. These tests | | | may have not been cleared or approved by the U.S. Food and Drug | | | Administration. The FDA has determined that suchclearance or | | | approval is not necessary. [facility] and [facility] are certified | | | under the Clinical Laboratory Improvement Amendment Act of 1988 | | | (CLIA) as qualified to perform high complexityclinical laboratory | | | testing. BES REASON FOR ADDENDUM:Result of EGFR analysis The tumor | | | cells are strongly positive for EGFR by immunohistochemistry. The | | | control tissue stains appropriately. Diagnostician: Nicanor Elias | | | DOPathologistDiagnostician: Kenyon Delacruz | | | MDPathologistElectronically Signed 09/22/2019 | | | | | |BES | | | | | |REASON FOR ADDENDUM: | | |Result of EGFR analysis | | | | | |The tumor cells are strongly positive for EGFR by immunohistochemistry. The control tissue stains appropriately. | | | | | |Diagnostician: Nicanor Elias DO | | |Pathologist | | |Diagnostician: Kenyon Delacruz MD | | |Pathologist | | |Electronically Signed 09/22/2019 | | | | | | | [...] | | | + +---------+ + + ECG 12 lead (08/26/2019 7:41 [...] | effusion. Signed by: Celine Watson, Linda Hatch Date/Time: | | | 08/26/2019 6:35 AM [...] BB BAND | [address] | | [facility] | | | | | | LABORATORY | | + + + + + + | BB BAND | Testing performed at | | [facility] | | | | [facility];[address] | | LABORATORY | | | | [address];[place] [address] | | | | + + + + + + + + | Specimen | + + | Blood | + + + + + + + | Performing | Address | City/State/Zipcode | Phone Number | | Organization | | | | + + + + + | [facility] | [address] | [place] [address] | [phone] | + + + + + Protime [...] | | | | | performed at [facility];[address] | | | | | | [address];[place] | | | | | | [address] | | | | + + + + + + + + | Specimen | + + | Blood | + + + + + + + | Performing | Address | City/State/Zipcode | Phone Number | | Organization | | | | + + + + + | [facility] | [address] | [place] [address] | [phone] | + + + + + Ferritin (08/26/2019 4:25 AM PST) + + + + + + | Component | Value | Ref Range | Performed | Pathologist | | | | | At | Signature | + + + + + + | Ferritin | 144Comment: Testing | 11 - 450 ng/mL | [facility] | | | | performed at [facility], [address] | | LABORATORY | | | | [address], | | | | | | [place] [address] | | | | + + + + + + + + | Specimen | + + | Blood | + + + + + + + | Performing | Address | City/State/Zipcode | Phone Number | | Organization | | | | + + + + + | [facility] | [address] | [place] [address] | [phone] | + + + + + Iron [...] Testing | 20 - 50 % | [facility] | | | Saturation | performed at [facility], [address] | | LABORATORY | | | | [address], | | | | | | [place] [address] | | | | + + + + + + + + | Specimen | + + | Blood | + + + + + + + | Performing | Address | City/State/Zipcode | Phone Number | | Organization | | | | + + + + + | [facility] | [address] | [place] [address] | [phone] | + + + + + CBC [...] MPV | 8.8Comment: Testing | fl | [facility] | | | | performed at [facility], [address] | | LABORATORY | | | | [address], | | | | | | [place] [address] | | | | + + + + + + + + | Specimen | + + | Blood | + + + + + + + | Performing | Address | City/State/Zipcode | Phone Number | | Organization | | | | + + + + + | [facility] | [address] | [place] [address] | [phone] | + + + + + Basic Metabolic Panel (08/26/2019 4:25 AM PST) + + + [...] + + + + | K | 3.6 | 3.5 - 4.9 | [facility] | [...] + + + + | BUN | 8 | 8 - 25 mg/dL | [facility] | | | | | | LABORATORY | | + + + + + + | Creatinine | 0.7 | 0.70 - 1.30 | [facility] | | | | | mg/dL | LABORATORY | | + + + + + + | BUN/Creatin | 11 | | [facility] | | | ine [...] | | | | | performed at [facility], [address] | | | | | | [address], | | | | | | [place] [address] | | | | + + + + + + + + | Specimen | + + | Blood | + + + + + + + | Performing | Address | City/State/Zipcode | Phone Number | | Organization | | | | + + + + + | [facility] | [address] | [place] [address] | [phone] | + + + + + Urinalysis [...] - 1.030 | [facility] | | | [place], | | | LABORATORY | | | [...] | | LABORATORY | | | | [facility];[address] | | | | | | [address];[place] [address] | | | | + + + [...] | + + + + + | [facility] | [address] | [place] [address] | [phone] | + + + + + Comprehensive Metabolic Panel (08/25/2019 6:22 PM PST) + + + + + + | Component | Value | Ref Range | Performed | Pathologist | | | | | At | Signature | + + + + + + | Na | 142 | 135 - 145 | [facility] | | | | | mmol/L | LABORATORY | | + + + + + + | K | 3.5 | 3.5 - 4.9 | [facility] | | | | | mmol/L | LABORATORY | | + + + + + + | Cl | 109 | 99 - 109 mmol/L | [facility] | | | | | | LABORATORY | | + + + + + + | CO2 | 25 | 23 - 32 mmol/L | [facility] | | | | | | LABORATORY | | + + + + + + | Anion Gap | 12 | 5 - 20 mmol/L | [facility] | | | | | | LABORATORY | | + + + + + + | Glucose | 84 | 65 - 99 mg/dL | [facility] | | | | | | LABORATORY | | + + + + + + | BUN | 8 | 8 - 25 mg/dL | [facility] | | | | | | LABORATORY | | + + + + + + | Creatinine | 0.65 (L) | 0.70 - 1.30 | [facility] | | | | | mg/dL | LABORATORY | | + + + + + + | BUN/Creatin | 12 | | [facility] | | | ine Ratio | | | LABORATORY | | + + + + + + | Calcium | 8.3 (L) | 8.5 - 10.5 | [facility] | | | | | mg/dL | LABORATORY | | + + + + + + | Protein, | 5.3 (L) | 6.3 - 8.2 g/dL | [facility] | | | Total | | | LABORATORY | | + + + + + + | Albumin | 3.4 | 3.3 - 4.8 g/dL | [facility] | | | | | | LABORATORY | | + + + + + + | Globulin | 1.9 | 1.3 - 4.9 g/dL | [facility] | | | | | | LABORATORY | | + + + + + + | A/G Ratio | 1.8 | 1.0 - 2.4 | [facility] | | | | | | LABORATORY | | + + + + + + | BILIRUBIN, | 1.1 | 0.1 - 1.5 mg/dL | [facility] | | | TOTAL | | | LABORATORY | | + + + + + + | ALK PHOS | 83 | 35 - 115 U/L | [facility] | | | | | | LABORATORY | | + + + + + + | AST | 20 | 10 - 45 U/L | [facility] | | | | | | LABORATORY | | + + + + + + | ALT | 13 | 10 - 65 U/L | [facility] | | | | | | LABORATORY | | + + + + + + | Estimated | >60Comment: GFR <60: | >60 | [facility] | | | GFR | CHRONIC [...] | | | | | | MDRD IDCA traceable | | | | | | equation.Testing | | | | | | performed at [facility] | | | | | | [facility];[place], [place] | | | | | | [address] | | | | + + + + + + + + | Specimen | + + | Blood | + + + + + + + | Performing | Address | City/State/Zipcode | Phone Number | | Organization | | | | + + + + + | [facility] | [address] | [place] [address] | [phone] | + + + + + CBC with Differential (08/25/2019 6:22 PM PST) + + + + + + | Component | Value | Ref Range | Performed | Pathologist | | | | | At | Signature | + + + + + + | WBC | 8.42 | 3.80 - 11.00 | [facility] | | | | | K/uL | LABORATORY | | + + + + + + | RBC | 4.06 (L) | 4.20 - 5.70 | [facility] | | | | | M/uL | LABORATORY | | + + + + + + | Hemoglobin | 12.5 (L) | 13.2 - 17.0 | [facility] | | | | | g/dL | LABORATORY | | + + + + + + | Hematocrit | 36.8 (L) | 39.0 - 50.0 % | [facility] | | | | | | LABORATORY | | + + + + + + | MCV | 90.7 | 80.0 - 100.0 fl | [facility] | | | | | | LABORATORY | | + + + + + + | MCH | 30.7 | 27.0 - 34.0 pg | [facility] | | | | | | LABORATORY | | + + + + + + | MCHC | 33.8 | 32.0 - 35.5 | [facility] | | | | | g/dL | LABORATORY | | + + + + + + | RDW-SD | 44.6 | 37 - 53 fl | [facility] | | | | | | LABORATORY | | + + + + + + | Platelet | 241 | 150 - 400 K/uL | [facility] | | | Count | | | LABORATORY | | + + + + + + | MPV | 8.4 | fl | [facility] | | | | | | LABORATORY | | + + + + + + | Diff Type | AUTOMATED | | [facility] | | | | | | LABORATORY | | + + + + + + | % | 73.41 | % | [facility] | | | Neutrophils | | | LABORATORY | | + + + + + + | % | 13.62 | % | [facility] | | | Lymphocytes | | | LABORATORY | | + + + + + + | Monocyte % | 9.95 | % | [facility] | | | | | | LABORATORY | | + + + + + + | Eosinophils | 2.21 | % | [facility] | | | % | | | LABORATORY | | + + + + + + | Basophils % | 0.81 | % | [facility] | | | | | | LABORATORY | | + + + + + + | Neutrophils | 6.18 | 1.90 - 7.40 | [facility] | | | , Absolute | | K/uL | LABORATORY | | + + + + + + | Absolute | 1.15 | 1.00 - 3.90 | [facility] | | | Lymphocytes | | K/uL | LABORATORY | | + + + + + + | Absolute | 0.84 (H) | 0.00 - 0.80 | [facility] | | | Monocytes | | K/uL | LABORATORY | | + + + + + + | Eosinophils | 0.19 | 0.00 - 0.50 | [facility] | | | , Absolute | | K/uL | LABORATORY | | + + + + + + | Basophils, | 0.07Comment: Testing | 0.00 - 0.10 | [facility] | | | Absolute | performed at [facility];[address] | LABORATORY | | | | [address];[place], [place] | | | | | | [address] | | | | + + + + + + + + | Specimen | + + | Blood | + + + + + + + | Performing | Address | City/State/Zipcode | Phone Number | | Organization | | | | + + + + + | [facility] | [address] | [place] [address] | [phone] | + + + + + documented in this encounter Visit Diagnoses + + | Diagnosis | + + | 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 | + + | Rectal obstruction Other specified disorder of rectum and anus | + + documented in this encounter Admitting Diagnoses + + | Diagnosis | + + | 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 | + + | Rectal obstruction Other specified disorder of rectum and anus | + + documented in this encounter Administered Medications + +--------+ + +------+------+ | Medication Order | MAR | Action | Dose | Rate | Site | | | Action | Date | | | | + +--------+ + +------+------+ | acetaminophen (TYLENOL) tablet | Given | 11/27/20 | 1,000 mg | | | | 1,000 mg 1,000 mg, Oral, EVERY 8 | | 19 12:41 | | | | | HOURS (3 times per day), First | | PM PST | | | | | dose on 08/26/19 at 1500, | | | | | | | Start 8 hours after pre-op dose., | | | | | | | Post-op/Phase II | | | | | | + +--------+ + +------+------+ +-------+ + +---+---+ | Given | 08/30/20 | 1,000 mg | | | | | 19 5:07 | | | | | | AM PST | | | | +-------+ + +---+---+ | Given | 08/29/20 | 1,000 mg | | | | | 19 5:25 | | | | | | PM PST | | | | +-------+ + +---+---+ +---+---+ | | | +---+---+ + +-------+ +-------+---+---+ | atorvaSTATin (LIPITOR) tablet | Given | 08/29/20 | 10 mg | | | | 10 mg 10 mg, Oral, NIGHTLY, | | 19 9:37 | | | | | First dose on 08/26/19 at | | PM PST | | | | | 2100 | | | | | | + +-------+ +-------+---+---+ +-------+ +-------+---+---+ | Given | 08/28/20 | 10 mg | | | | | 19 9:12 | | | | | | PM PST | | | | +-------+ +-------+---+---+ | Given | 08/27/20 | 10 mg | | | | | 19 9:42 | | | | | | PM PST | | | | +-------+ +-------+---+---+ +---+---+ | | | +---+---+ + +-------+ +--------+---+ + | bupivacaine (MARCAINE) 0.25% 30 | Given | 08/26/20 | 50 mLs | | Surgical | | mL with lidocaine 1%-EPINEPHrine | | 19 12:03 | | | Site | | 1:100,000 20 mL Optesia Mixture | | PM PST | | | | | PRN, Starting 08/26/19 at | | | | | | | 1203, Intra-op | | | | | | + +-------+ +--------+---+ + + +---+ | | | + +---+ | dextrose 10% (D10W) infusion | | | at 50 mL/hr, Intravenous, | | | CONTINUOUS PRN, hypoglycemia, | | | Starting 08/26/19 at 1442, | | | Start infusion if unable to | | | maintain blood glucose greater | | | than 70 mg/dL after two rounds of | | | hypoglycemia treatment. Recheck | | | blood glucose 30 minutes after | | | starting D10W then at least | | | hourly and PRN until it is | | | discontinued. Call provider to | | | discuss parameters for D10W | | | discontinuation., | | + +---+ | | | + +---+ | dextrose 50% injection 12.5-25 | | | g 12.5-25 g, Intravenous, PRN, | | | Low Blood Sugar, Starting Sat | | | 08/26/19 at 1442, For blood | | | glucose 50-69 mg/dl - give 12.5 g | | | For blood glucose less than 50 | | | mg/dl - give 25 g, | | + +---+ | | | + +---+ + +-------+ +-------+---+ + | enoxaparin (LOVENOX) 40 mg/0.4 | Given | 08/30/20 | 40 mg | | Abdomen- | | mL injection 40 mg 40 mg, | | 19 8:48 | | | RLQ | | Subcutaneous, EVERY 24 HOURS | | AM PST | | | | | (Daily), First dose on Sun | | | | | | | 08/27/19 at 0700, Give first dose | | | | | | | within 20 hours of surgery end | | | | | | | time. Nursing/Pharmacy to retime | | | | | | | first dose to 1900 for surgeries | | | | | | | ending between 2200 and 0900. , | | | | | | | Post-op/Phase II | | | | | | + +-------+ +-------+---+ + +-------+ +-------+---+ + | Given | 08/29/20 | 40 mg | | Abdomen- | | | 19 8:32 | | | RUQ | | | AM PST | | | | +-------+ +-------+---+ + | Given | 08/28/20 | 40 mg | | Abdomen- | | | 19 8:38 | | | LLQ | | | AM PST | | | | +-------+ +-------+---+ + +---+---+ | | | +---+---+ + +-------+ +-------+---+---+ | famotidine (PEPCID) tablet 20 | Given | 08/30/20 | 20 mg | | | | mg 20 mg, Oral, 2 TIMES DAILY, | | 19 8:48 | | | | | First dose on 08/26/19 at | | AM PST | | | | | 2100, Post-op/Phase II | | | | | | + +-------+ +-------+---+---+ +-------+ +-------+---+---+ | Given | 08/29/20 | 20 mg | | | | | 19 9:37 | | | | | | PM PST | | | | +-------+ +-------+---+---+ | Given | 08/29/20 | 20 mg | | | | | 19 8:32 | | | | | | AM PST | | | | +-------+ +-------+---+---+ +---+---+ | | | +---+---+ + +-------+ +--------+---+---+ | HYDROmorphone (DILAUDID) | Given | 08/27/20 | 0.2 mg | | | | injection 0.2-0.4 mg 0.2-0.4 mg, | | 19 1:17 | | | | | Intravenous, EVERY 1 HOUR PRN, | | AM PST | | | | | Pain, Starting 08/26/19 at | | | | | | | 1442, If oral route not an | | | | | | | option. Slow IV push, not faster | | | | | | | than 0.3mg/minute. First dose | | | | | | | must be lowest dose, titrate to | | | | | | | effective dose by repeat of | | | | | | | lowest dose every 30 minutes prn | | | | | | | pain, may not exceed maximum dose | | | | | | | ordered per interval. Use | | | | | | | Pasero Sedation Scale., | | | | | | | Post-op/Phase II | | | | | | + +-------+ +--------+---+---+ +---+---+ | | | +---+---+ + +---------+ +---+ +---+ | lactated ringers (LR) infusion | New Bag | 08/30/20 | | 50 mL/hr | | | at 50 mL/hr, Intravenous, | | 19 5:08 | | | | | CONTINUOUS, Starting 08/27/19 | | AM PST | | | | | at 0930, Post-op/Phase II | | | | | | + +---------+ +---+ +---+ + + +--------+ +---+ | Rate/Dose Change | 08/28/20 | | 50 mL/hr | | | | 19 12:19 | | | | | | PM PST | | | | + + +--------+ +---+ | New Bag | 08/28/20 | 50 mLs | 100 | | | | 19 8:43 | | mL/hr | | | | AM PST | | | | + + +--------+ +---+ +---+---+ | | | +---+---+ + +-------+ +--------+---+ + | lidocaine 1%-EPINEPHrine | Given | 08/26/20 | 20 mLs | | Surgical | | 1:100,000 injection PRN, | | 19 12:39 | | | Site | | Starting 08/26/19 at 1239, | | PM PST | | | | | Intra-op | | | | | | + +-------+ +--------+---+ + +---+---+ | | | +---+---+ + +-------+ +--------+---+---+ | oxyCODONE (ROXICODONE) tablet | Given | 08/26/20 | 2.5 mg | | | | 2.5-10 mg 2.5-10 mg, Oral, EVERY | | 19 10:29 | | | | | 3 HOURS PRN, Pain, Starting Sat | | PM PST | | | | | 08/26/19 at 1442, First dose must | | | | | | | be the lowest dose, can titrate | | | | | | | to effective dose by repeat of | | | | | | | lowest dose every 60 minutes prn | | | | | | | pain, may not exceed maximum dose | | | | | | | ordered per interval. Use Pasero | | | | | | | Sedation Scale., Post-op/Phase | | | | | | | II | | | | | | + +-------+ +--------+---+---+ +---+---+ | | | +---+---+ + +-------+ +------+---+---+ | oxyCODONE (ROXICODONE) tablet | Given | 08/30/20 | 5 mg | | | | 5-15 mg 5-15 mg, Oral, EVERY 3 | | 19 2:23 | | | | | HOURS PRN, Pain, Starting Fri | | PM PST | | | | | 08/25/19 at 2006, If ineffective | | | | | | | or not tolerated, contact | | | | | | | prescriber, | | | | | | + +-------+ +------+---+---+ +-------+ +------+---+---+ | Given | 08/29/20 | 5 mg | | | | | 19 9:37 | | | | | | PM PST | | | | +-------+ +------+---+---+ | Given | 08/29/20 | 5 mg | | | | | 19 10:59 | | | | | | AM PST | | | | +-------+ +------+---+---+ + +---+ | | | + +---+ | white petrolatum (VASELINE) gel | | | Topical, 2 TIMES DAILY, First | | | dose on Wed08/25/19 at 2300, | | | Apply to: Other (Comment), Other | | | location: rectum as barrier film | | + +---+ | | | + +---+ documented in this encounter
--- OUTSIDE RECORDS SUMMARY | ~2019-09-24 | XMS | Encounter Summary ---
Demographics + + + | Address | [address] | | | [place] [address] | + + + | Home Phone | | + + + | Preferred Language | Unknown | + + + | Marital Status | | + + + | Jain Affiliation | Unknown | + + + | Race | Unknown | + + + | Ethnic Group | Unknown | + + + Author + + + | Author | [facility] | | | and [place] | + + + | Organization | [facility] | | | [...] Team Providers + +------+ + | Care Real Estate Agent Name | Role | Phone | + +------+ + | Lizette Martinez | PCP | | + +------+ + Reason for Visit + + + | Reason | Comments | + + + | Care Coordination | Oncology Nurse Navigation | + + + Encounter Details +--------+ + + + + | Date | Type | Department | Care Team | Description | +--------+ + + + + | 09/05/ | Navigation | [facility] | Alva See | | | 2019 | Services | HEMATOLOGY AND | JAIEM Persaud | | | | | ONCOLOGY [address] | | | | | | [address] | | | | | | [place] | | | | | | [address] | | | | | | [phone] | | | +--------+ + + + [...] + documented as of this encounter Progress Alva Cross, RN - 09/05/2019 10:11 AM [facility] has been asked by Cristian Adam to refer pt to local oncologist near his home in [place], [place]. Referral entered for Dr Paras crowell, but referral must come from pcp due to insurance requirement. 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 Will have SHAUN Stubbs's office fax medical records to both pcp office and to Dr Oliva's off ice regarding this patient. ALVA BOWERS, RN, [facility] Colorectal Oncology Nurse Navigator documented in thi s encounter Plan of Treatment Not on filedocumented as of this encounter Visit Diagnoses Not on filedocumented in this encounter"
--- OUTSIDE RECORDS SUMMARY | ~2019-09-24 | XMS | Encounter Summary ---
Demographics + + + | Address | [address] | | | [place] [address] | + + + | Home Phone | | + + + | Preferred Language | Unknown | + + + | Marital Status | | + + + | Caodaism Affiliation | Unknown | + + + | Race | Unknown | + + + | Ethnic Group | Unknown | + + + Author + + + | Author | [facility] | | | and [place] | + + + | Organization | [facility] | | | [...] Team Providers + +------+ + | Care Dermatology Nurse Practitioner Name | Role | Phone | + +------+ + | Lizette Martinez | PCP | | + +------+ + Reason for Visit + + + | Reason | Comments | + + + | Follow-up, Office | Nuc and Echo done | | Visit | | + + + Follow Up (Routine) +--------+--------+ + + + + | Status | Reason | Specialty | Diagnoses / | Referred By | Referred To | | | | | Procedures | Contact | Contact | +--------+--------+ + + + + | Closed | | Family Nurse | Diagnoses | Juan, | Binta, | | | | Practitioner | nuc echo | GRIFFIN Bauer | Naina Strickland, | | | | / Cardiology | done sah | [id number] | [facility] | | | | | Procedures | SARAH BLACKMON | LISETH COLVIN | | | | | OFFICE VISIT | [place] | [address] | | | | | REGULAR | [place] [address] | [facility] | | | | | | Phone: | [phone] Phone: | | | | | | [phone] | [phone] | | | | | | Fax: | Fax: | | | | | | [phone] | [phone] | +--------+--------+ + + + + Encounter Details +--------+---------+ + + + | Date | Type | Department | Care Team | Description | +--------+---------+ + + + | 07/10/ | Office | [facility] | Naina Judd | Essential | | 2019 | Visit | CARDIOLOGY [place] | GRIFFIN [address] | hypertension | | | | [address] | LISETH [address]ON F | (Primary Dx); Chest | | | | [address] | [place] [address] | pressure; Mixed | | | | [place], [place] | [phone] | hyperlipidemia; | | | | [address] | | Tobacco abuse | | | | [phone] | | | +--------+---------+ + + + Social History + +-------+ [...] + + + documented in this encounter Patient Instructions Patient Instructions Naina Judd FNP - 07/10/2019 2:00 PM PDTYour stress test di d not show any current problems , and your previous Echo also fairly normal To keep your risk factors down for having a heart attack, stop smoking, and do not drink mo re than 2 drinks at a time, and get your flu and pneumonia vaccines. Keeping your cholesterol and blood pressure well controlled will also help I made no changes to medications See us back only if needed documented in this encounter Progress Notes Naina Judd FNP - 07/10/2019 2:00 PM PDTFormatting of this note might be differe nt from the original. Date of visit: 07/10/2019 Primary Care Physician: GRIFFIN Royal CHIEF COMPLAINT: Chief Complaint Patient presents with Follow-up, Office Visit Nuc and Echo done HISTORY OF PRESENT ILLNESS: is a 78 year old man who is here today to follow up on the results of his st ress test. He is a patient of Dr. Barahona and last seen by him 05/11/2019 when he ordered him a stress te st. Today, I reviewed all previous documentation available to me in electronic medical marilou rds and from external sources. 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 When seen by Dr. Barahona in May, he noted that he had 3 episodes of chest pressure in Sep and in December and there was no associated dyspnea ,nausea or diaphoresis and n o radiation, and all three occurred at rest, and resolved after he got up to walk around. His risk factors included age, sex, hypertension, hyperlipidemia, and smoking, and his EKG showing an old inferior [place]. He previously had a normal echo performed at [facility] Dr. Barahona ordered him a stress test. He also encouraged him to quit smoking, and decrease his alcohol intake, as binge drinks on Wednesday, when may have 4-[address] Barahona's documentation, he had no previous history of coronary artery disease heart failure, arrhythmia, palpitations, heart murmur, or rheumatic fever, and no history of abdo asha aortic aneurysm, and no edema or claudication symptoms His current and previous testing and procedures are detailed below . He reports today he had no further episodes of chest pressure, and denies any chest pain,p eripheral or central edema palpitations, dyspnea, dizziness,or syncope. He has had some ongoing problems with diarrhea for the last week, and has been treating it with Imodium. He also denies any signs or symptoms of stroke or TIA, or any ER visits, illness, surgery, or hospitalization since last seen. He reports he still smokes 3 cigarettes/day, and still drinks 5-6 alcoholic beverages on , and has not really made any changes to his habits since he last saw Dr. Barahona. REVIEW OF SYSTEMS: Negative except for pertinent items noted in HPI. Constitutional: Denies fatigue or unexplained weight loss. Appetite is good. Weight is st able. Denies night sweats fevers or chills HENT: Denies nosebleeds.bilateral hearing loss, left > right . Denies dysphagia Eyes: Denies visual disturbance or double vision. Respiratory/Sleep:: Denies cough and shortness of breath. Denies hemoptysis or excessive s putum production. Denies snoring, orthopnea, PND. Cardiovascular: Denies chest pain, palpitations and leg swelling. Denies history of rheuma tic fever. Denies claudication . Gastrointestinal: Denies GERD/PUD . Denies nausea, vomiting, abdominal pain and blood in stool. Genitourinary: Denies hematuria. Musculoskeletal: chronic low back pain.Denies myalgias and arthralgias. Skin: Denies color change. Denies rash or lesions Neurological: Mild memory loss, chronic numbness of the left medial thigh (a horse fell on his leg), Denies history of stroke/Transient ischemic attack.Denies history of seizures. D enies dizziness, syncope Hematological/Oncology . Bruises easily. Denies bleeding Denies history of cancer Endocrine: Hx prediabetes , now resolved. Denies thyroid disease. Denies excessive thirst or hunger. Psychiatric/Behavioral: denies any history of depression or anxiety or other psychiatric il lness. Vaccines: Not Current on flu vaccine. Current on pneumonia vaccine. Habits/Social : current smoker 3 cigarettes per day , smokes a third of a pack currently, h as smoked for 61 years. EtOH use: binge drinking on Wednesday . Denies recreational or ill icit drug use. Exercises with and tolerates. Lives in [facility] Medications Prior to Visit Medication Sig Dispense Refill aspirin 325 mg tablet Take 325 mg by mouth daily with breakfast. atorvaSTATin (LIPITOR) 10 mg tablet Take 10 mg by mouth nightly. lisinopril (PRINIVIL, ZESTRIL) 10 mg tablet Take 10 mg by mouth daily. loperamide (IMODIUM) 2 mg capsule Take 2 mg by mouth 4 times daily as needed for Diarrh ea. Take two capsules by mouth at the onset, then take one capsule as directed. No facility-administered medications prior to visit. PHYSICAL EXAM: Wt Readings from Last 3 Encounters: 07/10/19 83.5 kg (184 lb 1.6 oz) 05/11/19 84.8 kg (187 lb) Temp Readings from Last 3 Encounters: No data found for Temp BP Readings from Last 3 Encounters: 07/10/19 112/56 05/11/19 112/66 Pulse Readings from Last 3 Encounters: 07/10/19 72 05/11/19 75 GENERAL: Well developed, well nourished, in no distress. Appears approximately stated age . HEENT: Normocephalic, atraumatic. EYES: PERRL, EOM normal. MOUTH: Oral mucosae moist, dentition adequate, no lesions noted NECK: No JVD, lymphadenopathy, thyromegaly, bruits. Carotid pulses are 2+ bilaterally LUNGS/CHEST: Clear bilaterally, with no rales, rhonchi or wheezing noted, respirations unl abored HEART: Nondisplaced PMI, regular rate and rhythm, S1, S2 normal. No murmurs, rubs or gall ops noted. ABDOMEN: Soft, nontender, no organomegaly, masses or bruits. Bowel sounds are normal in a ll 4 quadrants. The abdominal aortic pulsation is not palpable. EXTREMITIES: No edema. Radial pulses 2+ bilaterally. Femoral pulses are 2+ bilaterally wi thout bruits. DP and PT pulses are 2+ bilaterally. No clubbing. SKIN: Warm and dry, capillary refill is normal, no lesions. NEUROLOGIC: Awake, alert and oriented x 3. No focal motor or sensory deficits. PSYCHIATRIC: Appropriate, affect appears normal DATA: Blood tests: No results found for: WBC, RBC, HGB, HCT, PLT No results found for: NA, K, CL, CO2, ANIONGAP, GLUF, BUN, CREATININE, BCR, EGFR No results found for: CHOL, TRIG, LDL, LDL, GLUF No results found for: BNP, TSH, CRP No results found for: TOTEPI CARDIAC PROCEDURES/IMAGING Last stress test: 05/31/2019: ([facility]:); EKG: Stressed with Lexiscan. Work level METS 1.00. Resting heart rate 58 bpm, maximal heart rate 82 bpm. 58% of maximum age-predicted heart ra te. Resting blood pressure 123/65, stress blood pressure 123/65. Stopped due to Lexiscan. Baseline EKG normal sinus rhythm with rate of 60 bpm and diffuse low voltage. Previously n oted inferior quick Q waves were no longer evident. No ST-T wave abnormalities. With Emilia can infusion, heart rate increased to 82 bpm, no symptoms, no ST segment changes, no arrhyth mias. Imaging:Images at rest and stress well matched, no evidence of ischemia or infarction. TCD score normal. EF 75%. Bull's eye images show normal muscle thickening , and cine images show normal motion. . ECHO Echo (02/21/19): ( [facility]) EF 60-65%, LV normal in size and wall thickness, motion abnormaliti es, normal diastolic function, normal RV size, function,Normal size atria. Aortic trileafle t, trace AI. Mild MAC, no MR. mild TR. No pulmonary hypertension, RVSP 25.91 mmHg. IVC WN L, CVP 5-10. Aortic root, ascending aorta, and aortic arch are normal. No mass, no clot, n o ASD EKG/EVENT MONITOR EK02/02/2019: ( [facility]) Sinus rhythm with PAC's. low voltage QRS 71 bpm, AR 122 ms, Q RS 74 ms, QTC 417 ms, tracing personally reviewed by me EK05/11/2019:Normal sinus rhythm, rate 71, AR 118 ms, QRS 68 ms, QTC 399, borderline carolynn rt AR interval, LAE, cannot exclude old inferior W[place], age undetermined, low voltage QRS , tr acing personally reviewed by me LABS Labs: 02/02/2019: CMP: Glucose 92, BUN 11, creatinine 0.7 GFR >60 sodium 141, potassium 4, ch loride 107, albumin 4.3, total bili 0.8, AST 23, ALT 27, alk phos 102. Thyroid: TSH 1.26, f ree T4 0.96 CBC: WBC 7.74, RBC 4.67, hemoglobin 15.92, hematocrit 46.55, platelets 236 ASSESSMENT & PLAN: He was here to follow up on results of his stress test. His nuclear stress test is detailed above , and reported as no EKG or imaging evidence of ischemia or infarct , with normal wall motion , and EF I reviewed the tests results in detail with him. He has remained asymptomatic and heart rate and blood pressure well controlled on curren t medications. Modifiable risk factors were discussed, and I advised him to quit smoking, drink no more t garcia 2 alcoholic drinks at one time , and to work on keeping blood pressure, and lipids well controlled, and to stay current on flu and pneumonia vaccines, as also increase risk of [place] I made no changes to cardiac medications today, and he should continue lisinopril 10 mg da tunde, ASAS 325 mg daily, atorvastatin 10 mg qhs. Given his lack of symptoms, with benign testing, he does not need scheduled follow up, but can follow up as needed if symptoms return. I gave him copy of his stress test reports. 1. Essential hypertension 2. Chest pressure 3. Mixed hyperlipidemia 4. Tobacco abuse No orders of the defined types were placed in this encounter. The following portions of the patient's history were personally reviewed by me and updated as appropriate: EKG tracings, other specialty provider and PCP notes,any Hospital admission and discharge summaries, any ER records , current and previous cardiac testing and procedure reports and d [place], medication bottles brought to visit today personally reviewed by me. Allergies, current medications.labs Family history, past medical history, past social history, past surgical history. Problem list. Erika WALKER [facility] 07/10/2019 docume nted in this encounter Plan of Treatment Not on filedocumented as of this encounter Visit Diagnoses + + | Diagnosis | + + | Essential hypertension - Primary Unspecified essential hypertension | + + | Chest pressure Other chest pain | + + | Mixed hyperlipidemia | + + | Tobacco abuse Tobacco use disorder | + + documented in this encounter
--- OUTSIDE RECORDS SUMMARY | ~2019-09-24 | XMS | Encounter Summary ---
Demographics + + + | Address | [address] | | | [place] [address] | + + + | Home Phone | | + + + | Preferred Language | Unknown | + + + | Marital Status | | + + + | Shinto Affiliation | Unknown | + + + | Race | Unknown | + + + | Ethnic Group | Unknown | + + + Author + + + | Author | [facility] | | | and [place] | + + + | Organization | [facility] | | [...] Team Providers + +------+ + | Care Freelance Operator Name | Role | Phone | [...] Trung AYALA | | | | | [phone] | [place] [address] | | +--------+ + + + + [...]
--- OUTSIDE RECORDS SUMMARY | ~2019-09-24 | XMS | Encounter Summary ---
Demographics + + + | Address | [address] | | | [place] [address] | + + + | Home Phone | | + + + | Preferred Language | Unknown | + + + | Marital Status | | + + + | Zoroastrianism Affiliation | Unknown | + + + | Race | Unknown | + + + | Ethnic Group | Unknown | + + + Author + + + | Author | [facility] | | | and [place] | + + + | Organization | [facility] | | [...] Team Providers + +------+ + | Care [employer] Name | Role | Phone | + [...] [place] | | | | | | [address] | | | | | | [phone] | | | +--------+ + + + [...] 0.67 m/s MV | | | Dec Lynn: 1.81 m/s2 MV DecT: 317.65 ms MV E Emanuel: 0.57 m/s | | | MV E/A Ratio: 0.85 E/E' Sept: 11.69 E' Lat: 0.08 m/s E' | | | Sept: 0.04 m/s RAP: 5 mmHg RV S': 0.12 m/s RVSP: 25.91 | | | mmHg TR maxP.91 mmHg TR Vmax: 2.28 m/s [employer]airer [employer] Building: | | | Authenticated by: Cici Abraham [...] mlLAESV Index (A-L): 24.25 ml/m2LAAs A2C: 14.49 [id number] A-L A2C: 33.91 | | mlLAESV MOD A2C: 32.12 mlLALs A2C: 5.25 cmLAAs A4C: 19.79 [id number] A-L A4C: | | 58.12 mlLAESV MOD A4C: 57.48 mlLALs A4C: 5.72 cmRAAs: 18.17 [id number] A-L: 49.96 | | mlRAESV MOD: 49.15 mlRALs: 5.60 cmTAPSE: 2.19 cmAV Env.Ti: 293.90 msAV maxPG: | | 4.91 mmHgAV meanP.41 mmHgAV Vmax: 1.10 m/Milton Vmean: 0.72 m/Milton VTI: 21.23 | | cmAVA Vmax: 3.17 cm2AVA (VTI): 3.89 [id number] Vmax: 0.00 cm2/m2AVAI (VTI): 0.00 | | cm2/m2LVOT Env.Ti: 360.44 msLVOT maxP.14 mmHgLVOT meanP.50 mmHgLVSI Dopp: | | 43.29 ml/m2LVSV Dopp: 82.69 mlLVOT Vmax: 0.88 m/sLVOT Vmean: 0.57 m/sLVOT VTI: | | 20.85 cmMV A Emanuel: 0.67 m/sMV Dec Lynn: 1.81 m/s2MV DecT: 317.65 msMV E Emanuel: | | 0.57 m/sMV E/A Ratio: 0.85E/E' Sept: 11.69E' Lat: 0.08 m/sE' Sept: 0.04 m/sRAP: | | 5 mmHgRV S': 0.12 m/sRVSP: 25.91 mmHgTR maxP.91 mmHgTR Vmax: 2.28 m/s | | Repairer Maintenance Building:Authenticated by: Cici Robles Date/Time: 02-21-2019 19:5:14 | [...] A Emanuel: 0.67 m/s | |MV Dec Lynn: 1.81 m/s2 | |MV DecT: 317.65 ms | |MV E Emanuel: 0.57 m/s | |MV E/A Ratio: 0.85 | |E/E' Sept: 11.69 | |E' Lat: 0.08 m/s | |E' Sept: 0.04 m/s | |RAP: 5 mmHg | |RV S': 0.12 m/s | |RVSP: 25.91 mmHg | |TR maxP.91 mmHg | |TR Vmax: 2.28 m/s | | | |Repairer Maintenance Building: | |Authenticated by: Cici Abraham | |Report [...]
--- OUTSIDE RECORDS SUMMARY | ~2019-09-24 | XMS | Clinical Summary ---
Demographics + + + | Address | [address] | | | [place] [address] | + + + | Home Phone | | + + + | Preferred Language | Unknown | + + + | Marital Status | | + + + | Anabaptist Affiliation | Unknown | + + + | Race | Unknown | + + + | Ethnic Group | Unknown | + + + Author + + + | Author | [facility] | | | and [place] | + + + | Organization | [facility] | | | [...] Team Providers + +------+ + | Care Material Handling Crew Supervisor Name | Role | Phone | [...] tablet by | 100 | 0 | 12/ | | Activ | | (ROXICODONE) 5 mg | mouth every 4 hours | tablet | | 2/20 | | e | | tablet | as needed for Pain. | | | 19 | | | + + + +---------+------+------+-------+ | lisinopril | Take 10 mg by mouth | | 0 | 08/0 | 11/2 | Disco | | (PRINIVIL, ZESTRIL) | daily. | | | 8/20 | 7/20 | ntinu | | 10 mg tablet | | | | 19 | 19 | ed | + + + +---------+------+------+-------+ | oxyCODONE | Take 1 tablet by | 30 | 0 | 11/ | 09/03 | Disco | | (ROXICODONE) 5 mg | mouth every 4 hours | tablet | | /20 | 2/20 | ntinu | | tablet [...] right | | lung.1. Presentation to the [facility] Emergency Room | | on August 23, 2019 with a 10 week history of abdominal | | distension and pain, and bloody diarrhea.2. CT scan | | abdomen/pelvis on August 23, 2019 at [facility] | | demonstrated significant nodularity in the omentum and mesentery, | | thickened rectosigmoid with diminished lumen. No liver | | metastases, nodule at left lung base. 3. Limited colonoscopy and | | rigid proctoscopy (Tahir) on August 24, 2019 demonstrated a | | circumferential palpable mass palpable within the rectum, | | estimated to be 10 cm long by proctoscopy. 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 CEA 61.18 ng/ml (ULN | | 3.8 ng.ml).4. Abdominal laparoscopic exploration with diverting | | colostomy and omental biopsies, flexible sigmoidoscopy and | | biopsy, August 26, 2019 (Pablo Tyson). Findings included | | omental, peritoneal [...] abdomen/pelvis with contrast on September 03, 2019 ([facility], | | Vish); innumerable mesenteric and omental soft tissue | | nodules, largest 3 x 5.5 cm, right basilar pleural effusion and | | bilateral pleural nodularity suspicious for metastatic disease. | | Last Assessment & Plan: Kris Delgado is referred by Sree | | Yifan Adam [address] [facility] [address] [place] [address] for | | evaluation and management of confirmed regionally metastatic | | colon cancer to the omentum, with unconfirmed metastatic disease | | to the right lung.I met with Crystal and his daughter, Gissel, at | | the [facility] on | | 09/14/2019.Review of systems is notable for rectal pain.Clinical | | exam is notable for decreased breath sounds and dullness at the | | right base.Laboratory exam is notable for elevated CEA.Images | | from his [facility] evaluations were | | reviewed.Assessment: confirmed regionally metastatic colon cancer | | to the omentum, with unconfirmed metastatic disease to the right | | lung.Plan; This was an extended, high-value encounter were we | | reviewed Mr. Delgado's [id number], his goals of therapy and | | his options, including no treatment, in an unbiased and | | non-promotional manner.Mr. Delgado delineated that his goal is to | | delay further symptomatic progression of disease with active | | treatment. I described the toxicities and logistics of treatment | | with FOLFOX chemotherapy including the need for stable | | intravenous access. Mr. Delgado indicated that he is motivated to | | proceed with treatment directly at [facility] in | | [place], [place]. He will be referred to Dr. Emeterio [...] automatically from request for surgery | | [id number] | + + + + + | Rectal obstruction | 08/25/2019 | + + + + + | Overview: Added automatically from request for surgery | | [id number] | + + + + + | [...] General Surgery | Jair, | | | 2019 | on | | YIFAN Balbuena | | +--------+ + + + + | 09/20/ | Office | General Surgery | Jair, | Adenocarcinoma of | | 2019 | Visit | | YIFAN Balbuena | [...] | | | 2018 | | | ACTIVE DIRECTORY SYSTEMS ADMINISTRATOR | | +--------+ + + + + | 09/13/ | Imaging | Radiology | Jaya, | | 2018 | Exam | | MD Ej | | +--------+ + + + + | 09/13/ | Imaging | Radiology | Jaya, | | | 2018 | Exam | | MD Ej | | +--------+ + + + + | 09/13/ | Imaging | Radiology | Provider, | | | 2019 | Exam | | MD Ej | | +--------+ + + + + | 09/05/ | Documentati | General Surgery | Evelyne Gonzalez, | | | 2018 | on | | Marriage And Family Therapist | | +--------+ + + + + [...] hypertension | +--------+ + + + + | 07/10/ | Office | Cardiology | Naina Judd | Essential | | 2019 | Visit | | GRIFFIN Strickland | hypertension | | | | | | (Primary Dx); Chest | | | | | | pressure; Mixed | | | | | | hyperlipidemia; | | | | | | Tobacco abuse | +--------+ + + + + from [...] J?MRN: | | | | | | [id number] | | | [id number] | | | riteri | | | [...] | | | St. | | | [place] | | | y | | | [...] | | | St. | | | [place] | | | y H. | | [...] | | | St. | | | [place] | | | y H. | | [...] | | | 1-103a | | | [id number] | | | 41 | | | [...] | +---+--------+ + +--------+ +---+ + | CT ABDOMEN PELVIS W | Routin | 08/23/2019 | | Results for this | | CONTRAST | e | 12:00 AM | | procedure are in the | | | | PST | | results section. | + +--------+ +---+ + from Last 3 Months Results US Abdomen Limited (09/07/2019 12:00 AM PST) [...] | | | Absolute | performed at [facility], [address] | [address] | LABORATORY | | | | [address], | | | | | | [place] [address] | | | | + + + + + + + + | Specimen | + + | Blood | + + + + + + + | Performing | Address | City/State/Zipcode | Phone Number | | Organization | | | | + + + + + | [facility] | [address] | [place] [address] | [phone] | + + + + + Comprehensive Metabolic Panel (08/30/2019 4:29 AM [facility])Only the most recent of 2 results wi [...] | | | | | performed at [facility], [address] | | | | | | [address], | | | | | | [place] [address] | | | | + + + + + + + + | Specimen | + + | Blood | + + + + + + + | Performing | Address | City/State/Zipcode | Phone Number | | Organization | | | | + + + + + | [facility] | [address] | [place] [address] | [phone] | + + + + + Phosphorus [...] Testing | 2.3 - 4.8 mg/dL | [facility] | | | | performed at [facility];[address] | | LABORATORY | | | | [address];[place], [place] | | | | | | [address] | | | | + + + + + + + + | Specimen | + + | Blood | + + + + + + + | Performing | Address | City/State/Zipcode | Phone Number | | Organization | | | | + + + + + | [facility] | [address] | [place] [address] | [phone] | + + + + + Magnesium [...] Testing | 1.7 - 2.4 mg/dL | [facility] | | | | performed at [facility];[address] | | LABORATORY | | | | [address];[place] | | | | | | [address] | | | | + + + + + + + + | Specimen | + + | Blood | + + + + + + + | Performing | Address | City/State/Zipcode | Phone Number | | Organization | | | | + + + + + | [facility] | [address] | [place] [address] | [phone] | + + + + + Basic [...] | | | | | | MDRD IDMN traceable | | | | | | equation.Testing | | | | | | performed at [facility];[address] | | | | | | [address] [facility];[place], [place] | | | | | | [address] | | | | + + + + + + + + | Specimen | + + | Blood | + + + + + + + | Performing | Address | City/State/Zipcode | Phone Number | | Organization | | | | + + + + + | [facility] | [address] | [place] [address] | [phone] | + + + + + POC [...] Testing | 65 - 99 mg/dL | [facility] | | | POC | performed at [facility];[address] | | LABORATORY | | | | [address];[place] | | | | | | [address] | | | | + + + + + + + + | Specimen | + + | | + + + + + + + | Performing | Address | City/State/Zipcode | Phone Number | | Organization | | | | + + + + + | [facility] | [address] | [place] [address] | [phone] | + + + + + Surgical [...] of the | | | rectum (see [id number]). As part of [employer] Quality | | | Improvement Program, this [...] surfaceis barker-yellow and lobulated. | | | Clipper And Turner sections are submitted in cassette (A1). B. [...] is barker-yellow and | | | lobulated. Clipper And Turner sections are submitted incassette (B1). | | [...] component was performed | | | by [facility] [address] (Medical | | | Director: Yenny Young MD; CLIA# [id number]). Professional | | | [facility] | | | [address] [address] (Medical | | | Director: Kenyon Delacruz M.D.; CLIA#: [id number]). REASON FOR | | | ADDENDUM:Results of [...] | | | preparation) was performed at [facility]. | | | Interpretation was performed at [facility]. | | | Immunohistochemical studies and/or special stains were performed on | | | this case with the appropriate controls, which stain appropriately. | | | These tests were developed and their performance characteristics | | | determined by [facility] and/or [facility]. These tests | | | may have not been cleared or approved by the U.S. Food and Drug | | | Administration. The FDA has determined that suchclearance or | | | approval is not necessary. [facility] and [facility] are certified | | | under the [...] by: Judson Mcmullen CRNA Authorizing provider: Judson De La Vega | | Mesfin Mcmullen CRNA Please see [...] Induction: no Mask ventilation: easy Successful technique: Shakir | | | Laryngoscope blade size: 2 [...] Performing provider: Judson Toure | | | DAENNA Mcmullen Authorizing provider: Judson Mcmullen CRNA | [...] BAND | Testing performed at | | [facility] | | | | [facility];[address] | | LABORATORY | | | | [address];[place] [address] | | | | + + + + + + + + | Specimen | + + | Blood | + + + + + + + | Performing | Address | City/State/Zipcode | Phone Number | | Organization | | | | + + + + + | [facility] | [address] | [place] [address] | [phone] | + + + + + Iron [...] | | | | | [place] [address] | | | | + + + + + + + + | Specimen | + + | Blood | + + + + + + + | Performing | Address | City/State/Zipcode | Phone Number | | Organization | | | | + + + + + | [facility] | [address] | [place] [address] | [phone] | + + + + + Protime [...] | | | | performed at [facility];[address] | | | | | | [address];[place], [place] | | | | | | [address] | | | | + + + + + + + + | Specimen | + + | Blood | + + + + + + + | Performing | Address | City/State/Zipcode | Phone Number | | Organization | | | | + + + + + | [facility] | [address] | [place] [address] | [phone] | + + + + + CBC [...] [facility] | | | | performed at [facility], [address] | | LABORATORY | | | | [address], | | | | | | [place] [address] | | | | + + + + + + + + | Specimen | + + | Blood | + + + + + + + | Performing | Address | City/State/Zipcode | Phone Number | | Organization | | | | + + + + + | [facility] | [address] | [place] [address] | [phone] | + + + + + Ferritin [...] | | | | | [place] [address] | | | | + + + + + + + + | Specimen | + + | Blood | + + + + + + + | Performing | Address | City/State/Zipcode | Phone Number | | Organization | | | | + + + + + | [facility] | [address] | [place] [address] | [phone] | + + + + + Urinalysis [...] - 1.030 | [facility] | | | [place], | | | LABORATORY | | | [...] | LABORATORY | | | | [facility];[address] | | | | | | [address];[place] [address] | | | | + + + [...] | + + + + + | [facility] | [address] | [place] [address] | [phone] | + + + + + from Last 3 [...] +--------+ +---------+--------+ | MEDICARE | MEDICA | [id number] | 04/03/20 | [phone] | | Medica | | | RE | | 14-Pre | 5 | | re | | | PART A | | sent | | | | | | AND B | | | | | | + +--------+ +--------+ +---------+--------+ | [facility] | IHS | [id number] | | | | Indemn | | SERVICE | YELLOW | | 019-Pr | | | ity | | | HAWK | | esent | | | | + +--------+ +--------+ +---------+--------+ | [facility] | IHS | [id number] | 10/04/19 | | | Indemn | | SERVICE | YELLOW | | 19-Pre | | | ity | | | HAWK | | sent | | | | + +--------+ +--------+ +---------+--------+ | MEDICARE | MEDICA | [id number] | 04/03/20 | [phone] | | Medica [...] +--------+ +--------+ + + | Kris Delgado J | Person | Self [birth year] | [address] | | | al/Fam | | 1941 | [phone] | [place] [address] | | | tunde | | | 9 (Home) | | + +--------+ +--------+ + + | Kris Delgado J | Person | Self [birth year] | | [address] | | | al/Fam | | 1941 | [phone] | [place] [address] | | | tunde | | | 9 (Home) | | + +--------+ +--------+ + + Advance Directives + + + + + | Type | Date Recorded | Patient | Explanation | | | | Clipper And Turner | | + + + + + | Power of | | | | | Real Estate Operations Manager | | | | + + + [...]
--- OUTSIDE RECORDS SUMMARY | ~2019-09-24 | XMS | Encounter Summary ---
Demographics + + + | Address | [address] | | | [place] [address] | + + + | Home Phone | | + + + | Preferred Language | Unknown | + + + | Marital Status | | + + + | Religion Affiliation | Unknown | + + + [...] Team Providers + +------+ + | Care Interactive Marketing Strategist Name | Role | Phone | + +------+ + | Lizette Martinez | PCP | | + +------+ + Encounter Details +--------+ + + + + | Date | Type | Department | Care Team | Description | +--------+ + + + + | 09/21/ | Documentati | [facility] | Jair, | | | 2019 | on | GENERAL SURGERY [address] | | | | | [address] | [address] | | | | | [place] [place] | [place] [address] | | | | | [address] | [phone] | | | | | [phone] | | | +--------+ + + + [...] of this encounter Progress Notes Marija Mabry, Spooling Supervisor - 09/21/2019 9:02 AM PSTRef[facility]. Confirmation received. documented in this encounter Plan of Treatment Not on filedocumented as of this encounter Visit Diagnoses Not on filedocumented in this encounter"
--- OUTSIDE RECORDS SUMMARY | ~2019-09-24 | XMS | Encounter Summary ---
Demographics + + + | Address | [address] | | | [place] [address] | + + + | Home Phone | | + + + | Preferred Language | Unknown | + + + | Marital Status | | + + + | Yazdanism Affiliation | Unknown | + + + | Race | Unknown | + + + | Ethnic Group | Unknown | + + + Author + + + | Author | [facility] | | | and [place] | + + + | Organization | [facility] | | | [...] Team Providers + +------+ + | Care Commissary Representative Name | Role | Phone | + [...] + + | 08/25/ | Hospital | [facility] | Enio Lange, | Colorectal tumor | | 2019 - | Encounter | [facility] [address] | MD [address] | (Primary Dx); Rectal | | | | [address] | [place] [address] | obstruction; | | 08/30/ | | [place], [place] | [phone] | Colorectal tumor; | | 2019 | | [address] | | Rectal obstruction; | | | | [phone] | Errol Mart MD | Anemia, unspecified | | | | | [address] | type; Essential | | | | | [place] [address] | hypertension | | | | | [phone] | | | | | | | | | | | | Giuliano Villaseñor, | | | | | | [address] | | | | | | [address] | | | | | | [place] [address] | | | | | | [phone] | | | | | | | | | | | | Jasmin Barker MD | | | | | | [address] | | | | | | [place] [address] | | | | | | [phone] | | | | | | | [...] Barker MD - 08/30/2019 2:35 PM PST [facility] Service: Hospitalist Physician Discharge Summary Patient ID: Kris Delgado [id number] y.o. Admit date: 08/25/2019 Discharge [...] for a rolling walker. He agreed for [facility] placemen t. He was accepted at [facility]. Referral to a local oncologist was sent. He will follow up with surgery in 2 weeks. Past Medical History: Past Medical History: Diagnosis Date Hyperlipidemia Hypertension 2004 Tobacco abuse Past Surgical History: Procedure Laterality Date COLOSTOMY N/A 08/26/2019 Procedure: LAPAROSCOPIC COLOSTOMY CREATION; Surgeon: Phong Tyson MD; Location: [facility] MAIN OR OTHER SURGICAL HISTORY Left 1984 ORIF ANKLE FRACTURE OTHER SURGICAL HISTORY Bilateral 2016 CATARACT EXTRACTION SIGMOIDOSCOPY N/A 08/26/2019 Procedure: SIGMOIDOSCOPY FLEXIBLE; Surgeon: Phong Tyson MD; Location: [facility] MAIN OR Discharged Condition: Stable for discharge [...] input(s): ABG Disposition: Follow up: GRIFFIN [place] [address] [facility] [address] Go on 09/11/2019 You have an appointment at 0930 on 09/11/2019 with Lizette MOYA [address] [id number] Phong Tyson MD [address] [place] [address] Schedule an appointment as soon as possible [...] Gonzalez RN - 08/29/2019 2:04 PM PST [facility] Service: Ostomy Care Consult Note Hospital Day: [...] 2 weeks (until his post-op a ppointment) [facility] starter kit ordered with pt's permission # [id number] Thank you for allowing me to participate in the care of this patient. Soledad Berger RN, CWON 08/29/2019 14:04 Jasmin Herrmann MD - 08/29/2019 1:18 PM PSTFormatting of this note might be different from the or iginal. [facility] Service: Hospitalist Progress Note Hospital Day: LOS: [...] Delgado 78 y.o. 1940 Med. Record Number: [id number] Date of admission: 08/25/2019 Service(s): Colorectal Surgery [...] nursing note reviewed. Exam conducted with a survival equipment repairer present. Cardiovascular: Rate and Rhythm: Normal rate. [...] - 2:50 PM PST PROGRESS NOTE for Kris Delgado on the hospitalist service. 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 Adv ance diet and encourage ambulation. Patient/family need ostomy teaching. Path still pending, once available he can f/u with heme/onc, either Dr Malik here in town or supposedly there is a heme/onc Dr [facility] (where they live). HTN BP's remain low-normal [...] BMI 28.00 kg/m Physical exam: AOx3 NAD TAKOTNA Heart RRR Lungs CTa Abd SNTND +BS Ostomy has stool output Giuliano Villaseñor DO 08/28/2019 2:50 PM Sree Smith ARN P - 08/28/2019 8:17 AM PST Colorectal Surgery Progress Note Pt. Name/Age/: Kris Delgado 78 y.o. 1940 Med. Record Number: [id number] Date of admission: 08/25/2019 Service(s): Colorectal Surgery [...] nursing note reviewed. Exam conducted with a survival equipment repairer present. Cardiovascular: Rate and Rhythm: Normal rate. [...] Encourage ambulation 2. General diet ok 3. corn sheller consult and teaching AARON Bull 11:50 AM; 08/28/2019 Ayde Randall RN - 08/28/2019 7:53 AM PSTPt refusing waffle mattress, family and pt educated on q 2 turning instead Chart check complete Shade Larsen RN 08/28/19 @7:53 AM Giuliano Peralta DO - 08/27/2019 8:29 AM PST PROGRESS NOTE for Kris Leiva Crystal on the hospitalist service. 08/27/2019 [...] BMI 28.00 kg/m Physical exam: NAD AOx3 TAKOTNA Heart RRR Lungs CTA Abd SNTND +BS [...] BMI 28.00 kg/m Physical exam: AOx3 NAD TAKOTNA Heart RRR Lungs CTA Abd SNTND ostomy [...] Larsen RN 08/26/19 @7:47 AM Valentín Navarro, [facility] - 08/25/2019 7:41 PM PSTRx Admission Medication History Note I have reviewed the medication history for appropriate doses obtained by: ED Pharmacist After reviewing the home medication list : I agree with the home medications list. 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 Adjusted MUSHROOM GROWTH MEDIA MIXER medications according to the legal technician note below. - removed lopermaide. Per [...] J?MRN: | | | | | | [id number] | | | [id number] | | | riteri | | | [...] | | | St. | | | [place] | | | y | | | [...] | | | St. | | | [place] | | | y H. | | [...] | | | St. | | | [place] | | | y H. | | [...] | | | 1-103a | | | [id number] | | | 41 | | | [...] | | | ed.? | | | 2018 | | | Collec | | | [...] | | | | | performed at [facility], [address] | | | | | | [facility], | | | | | | [place] [address] | | | | + + + + + + + + | Specimen | + + | Blood | + + + + + + + | Performing | Address | City/State/Zipcode | Phone Number | | Organization | | | | + + + + + | [facility] | [address] | [place] [address] | [phone] | + + + + + CBC [...] 0.04Comment: Testing | 0.00 - 0.10 | [facility] | | | Absolute | performed at [facility], [address] | K[address] | LABORATORY | | | | [address], | | | | | | [place] [address] | | | | + + + + + + + + | Specimen | + + | Blood | + + + + + + + | Performing | Address | City/State/Zipcode | Phone Number | | Organization | | | | + + + + + | [facility] | [address] | [place] [address] | [phone] | + + + + + Phosphorus (08/29/2019 4:53 AM PST) + + + + + + | Component | Value | Ref Range | Performed | Pathologist | | | | | At | Signature | + + + + + + | Phosphorus | 3.0Comment: Testing | 2.3 - 4.8 mg/dL | [facility] | | | | performed at [facility];[address] | | LABORATORY | | | | [address];[place], [place] | | | | | | [address] | | | | + + + + + + + + | Specimen | + + | Blood | + + + + + + + | Performing | Address | City/State/Zipcode | Phone Number | | Organization | | | | + + + + + | [facility] | [address] | [place] [address] | [phone] | + + + + + Magnesium (08/29/2019 4:53 AM PST) + + + + + + | Component | Value | Ref Range | Performed | Pathologist | | | | | At | Signature | + + + + + + | Magnesium | 1.7Comment: Testing | 1.7 - 2.4 mg/dL | [facility] | | | | performed at [facility];[address] | | LABORATORY | | | | [address];[place] | | | | | | [address] | | | | + + + + + + + + | Specimen | + + | Blood | + + + + + + + | Performing | Address | City/State/Zipcode | Phone Number | | Organization | | | | + + + + + | [facility] | [address] | [place] [address] | [phone] | + + + + + Basic [...] 8.0 (L) | 8.5 - 10.5 | [facility] | | | | | mg/dL | LABORATORY | | + + + + + + | Estimated | >60Comment: GFR <60: | >60 | [facility] | | | GFR | [...] | | | | | performed at [facility] | | | | | | [facility];[place], [place] | | | | | | [address] | | | | + + + + + + + + | Specimen | + + | Blood | + + + + + + + | Performing | Address | City/State/Zipcode | Phone Number | | Organization | | | | + + + + + | [facility] | [address] | [place] [address] | [phone] | + + + + + CBC [...] | | | Absolute | performed at [facility];[address] | [address] | LABORATORY | | | | [facility];[place], [place] | | | | | | [address] | | | | + + + + + + + + | Specimen | + + | Blood | + + + + + + + | Performing | Address | City/State/Zipcode | Phone Number | | Organization | | | | + + + + + | [facility] | [address] | [place] [address] | [phone] | + + + + + POC [...] | | | POC | performed at [facility];[address] | | LABORATORY | | | | [address];[place] | | | | | | [address] | | | | + + + + + + + + | Specimen | + + | | + + + + + + + | Performing | Address | City/State/Zipcode | Phone Number | | Organization | | | | + + + + + | [facility] | [address] | [place] [address] | [phone] | + + + + + POC Glucose (08/28/2019 12:11 PM PST) + + + + + + | Component | Value | Ref Range | Performed | Pathologist | | | | | At | Signature | + + + + + + | Glucose, | 101 (H)Comment: Testing | 65 - 99 mg/dL | [facility] | | | POC | performed at [facility];[address] | | LABORATORY | | | | [address];[place] | | | | | | [address] | | | | + + + + + + + + | Specimen | + + | | + + + + + + + | Performing | Address | City/State/Zipcode | Phone Number | | Organization | | | | + + + + + | [facility] | [address] | [place] [address] | [phone] | + + + + + POC Glucose (08/28/2019 8:48 AM PST) + + + + + + | Component | Value | Ref Range | Performed | Pathologist | | | | | At | Signature | + + + + + + | Glucose, | 98Comment: Testing | 65 - 99 mg/dL | [facility] | | | POC | performed at [facility];[address] | | LABORATORY | | | | [address];[place] | | | | | | [address] | | | | + + + + + + + + | Specimen | + + | | + + + + + + + | Performing | Address | City/State/Zipcode | Phone Number | | Organization | | | | + + + + + | [facility] | [address] | [place] [address] | [phone] | + + + + + Phosphorus (08/28/2019 4:18 AM PST) + + + + + + | Component | Value | Ref Range | Performed | Pathologist | | | | | At | Signature | + + + + + + | Phosphorus | 2.1 (L)Comment: Testing | 2.3 - 4.8 mg/dL | [facility] | | | | performed at [facility], [address] | | LABORATORY | | | | [address], | | | | | | [place] [address] | | | | + + + + + + + + | Specimen | + + | Blood | + + + + + + + | Performing | Address | City/State/Zipcode | Phone Number | | Organization | | | | + + + + + | [facility] | [address] | [place] [address] | [phone] | + + + + + Magnesium (08/28/2019 4:18 AM PST) + + + + + + | Component | Value | Ref Range | Performed | Pathologist | | | | | At | Signature | + + + + + + | Magnesium | 2.0Comment: Testing | 1.7 - 2.4 mg/dL | [facility] | | | | performed at [facility], [address] | | LABORATORY | | | | [address], | | | | | | [place] [address] | | | | + + + + + + + + | Specimen | + + | Blood | + + + + + + + | Performing | Address | City/State/Zipcode | Phone Number | | Organization | | | | + + + + + | [facility] | [address] | [place] [address] | [phone] | + + + + + Basic [...] | | | | | | [facility] traceable | | | | | | equation.Testing | | | | | | performed at [facility], [address] | | | | | | [facility], | | | | | | [place] [address] | | | | + + + + + + + + | Specimen | + + | Blood | + + + + + + + | Performing | Address | City/State/Zipcode | Phone Number | | Organization | | | | + + + + + | [facility] | [address] | [place] [address] | [phone] | + + + + + CBC [...] 0.03Comment: Testing | 0.00 - 0.10 | [facility] | | | Absolute | performed at [facility], [address] | [address] | LABORATORY | | | | [address], | | | | | | [place] [address] | | | | + + + + + + + + | Specimen | + + | Blood | + + + + + + + | Performing | Address | City/State/Zipcode | Phone Number | | Organization | | | | + + + + + | [facility] | [address] | [place] [address] | [phone] | + + + + + POC [...] | | | POC | performed at [facility];[address] | | LABORATORY | | | | [address];[place], [place] | | | | | | [address] | | | | + + + + + + + + | Specimen | + + | | + + + + + + + | Performing | Address | City/State/Zipcode | Phone Number | | Organization | | | | + + + + + | [facility] | [address] | [place] [address] | [phone] | + + + + + POC Glucose (08/27/2019 12:05 PM PST) + + + + + + | Component | Value | Ref Range | Performed | Pathologist | | | | | At | Signature | + + + + + + | Glucose, | 99Comment: Testing | 65 - 99 mg/dL | [facility] | | | POC | performed at [facility];[address] | | LABORATORY | | | | [address];[place] | | | | | | [address] | | | | + + + + + + + + | Specimen | + + | | + + + + + + + | Performing | Address | City/State/Zipcode | Phone Number | | Organization | | | | + + + + + | [facility] | [address] | [place] [address] | [phone] | + + + + + POC Glucose (08/27/2019 8:01 AM PST) + + + + + + | Component | Value | Ref Range | Performed | Pathologist | | | | | At | Signature | + + + + + + | Glucose, | 85Comment: Testing | 65 - 99 mg/dL | [facility] | | | POC | performed at [facility];[address] | | LABORATORY | | | | [address];[place] | | | | | | [address] | | | | + + + + + + + + | Specimen | + + | | + + + + + + + | Performing | Address | City/State/Zipcode | Phone Number | | Organization | | | | + + + + + | [facility] | [address] | [place] [address] | [phone] | + + + + + Phosphorus (08/27/2019 5:10 AM PST) + + + + + + | Component | Value | Ref Range | Performed | Pathologist | | | | | At | Signature | + + + + + + | Phosphorus | 3.8Comment: Testing | 2.3 - 4.8 mg/dL | [facility] | | | | performed at [facility], [address] | | LABORATORY | | | | [address], | | | | | | [place] [address] | | | | + + + + + + + + | Specimen | + + | Blood | + + + + + + + | Performing | Address | City/State/Zipcode | Phone Number | | Organization | | | | + + + + + | [facility] | [address] | [place] [address] | [phone] | + + + + + Magnesium [...] | | LABORATORY | | | | [address], | | | | | | [place] [address] | | | | + + + + + + + + | Specimen | + + | Blood | + + + + + + + | Performing | Address | City/State/Zipcode | Phone Number | | Organization | | | | + + + + + | [facility] | [address] [facility] | [place] [address] | [phone] | + + + + + Basic [...] | | | | | performed at [facility], [address] | | | | | | [facility], | | | | | | [place] [address] | | | | + + + + + + + + | Specimen | + + | Blood | + + + + + + + | Performing | Address | City/State/Zipcode | Phone Number | | Organization | | | | + + + + + | [facility] | [address] | [place] [address] | [phone] | + + + + + CBC [...] at | | | | | | [facility], [address] [facility] | | | | | | [place] | | | | | | [address] | | | | + + + + + + + + | Specimen | + + | Blood | + + + + + + + | Performing | Address | City/State/Zipcode | Phone Number | | Organization | | | | + + + + + | [facility] | [address] | [place] [address] | [phone] | + + + + + POC Glucose (08/27/2019 4:06 AM PST) + + + + + + | Component | Value | Ref Range | Performed | Pathologist | | | | | At | Signature | + + + + + + | Glucose, | 81Comment: Testing | 65 - 99 mg/dL | [facility] | | | POC | performed at [facility];[address] | | LABORATORY | | | | [address];[place] | | | | | | [address] | | | | + + + + + + + + | Specimen | + + | | + + + + + + + | Performing | Address | City/State/Zipcode | Phone Number | | Organization | | | | + + + + + | [facility] | [address] | [place] [address] | [phone] | + + + + + POC [...] | | | POC | performed at [facility];[address] | | LABORATORY | | | | [address];[place] | | | | | | [address] | | | | + + + + + + + + | Specimen | + + | | + + + + + + + | Performing | Address | City/State/Zipcode | Phone Number | | Organization | | | | + + + + + | [facility] | [address] | [place] [address] | [phone] | + + + + + Surgical [...] of the | | | rectum (see [id number]). As part of [facility]' Quality | | | Improvement Program, this [...] surfaceis barker-yellow and lobulated. | | | Delivery Sales Worker sections are submitted in cassette (A1). B. [...] is barker-yellow and | | | lobulated. Delivery Sales Worker sections are submitted incassette (B1). | | [...] component was performed | | | by [facility] [address] (Medical | | | Director: Yenny Young MD; CLIA# [id number]). Professional | | | interpretation was performed [facility] | | | [address] [address] (Medical | | | Director: Kenyon Delacruz M.D.; CLIA#: [id number]). REASON FOR | | | ADDENDUM:Results of [...] | | | preparation) was performed at [facility]. | | | Interpretation was performed at [facility]. | | | Immunohistochemical studies and/or special stains were performed on | | | this case with the appropriate controls, which stain appropriately. | | | These tests were developed and their performance characteristics | | | determined by [facility] and/or [facility]. These tests | | | may have not been cleared or approved by the U.S. Food and Drug | | | Administration. The FDA has determined that suchclearance or | | | approval is not necessary. [facility] and [facility] are certified | | | under the [...] | | LABORATORY | | | | [address]vd;[place] [address] | | | | + + + + + + + + | Specimen | + + | Blood | + + + + + + + | Performing | Address | City/State/Zipcode | Phone Number | | Organization | | | | + + + + + | [facility] | [address] | [place] [address] | [phone] | + + + + + Protime INR (08/26/2019 4:25 AM PST) + + + + + + | Component | Value | Ref Range | Performed | Pathologist | | | | | At | Signature | + + + + + + | INR | 1.1Comment: REFERENCE | | [facility] | | | | RANGE:0.9 [...] | | | | | performed at [facility];[address] | | | | | | [address];[place] | | | | | | [address] | | | | + + + + + + + + | Specimen | + + | Blood | + + + + + + + | Performing | Address | City/State/Zipcode | Phone Number | | Organization | | | | + + + + + | [facility] | [address] [facility] | [place] [address] | [phone] | + + + + + Ferritin (08/26/2019 4:25 AM PST) + + + + + + | Component | Value | Ref Range | Performed | Pathologist | | | | | At | Signature | + + + + + + | Ferritin | 144Comment: Testing | 11 - 450 ng/mL | [facility] | | | | performed at [facility], [address] | | LABORATORY | | | | [address], | | | | | | [place] [address] | | | | + + + + + + + + | Specimen | + + | Blood | + + + + + + + | Performing | Address | City/State/Zipcode | Phone Number | | Organization | | | | + + + + + | [facility] | [address] | [place] [address] | [phone] | + + + + + Iron and Iron Binding Capacity (08/26/2019 4:25 AM PST) + + + + + + | Component | Value | Ref Range | Performed | Pathologist | | | | | At | Signature | + + + + + + | Iron | 9 (L) | 45 - 190 ug/dL | [facility] | | | | | | LABORATORY [...] | | | | | [place] [address] | | | | + + + + + + + + | Specimen | + + | Blood | + + + + + + + | Performing | Address | City/State/Zipcode | Phone Number | | Organization | | | | + + + + + | [facility] | [address] | [place] [address] | [phone] | + + + + + CBC [...] [facility] | | | | performed at [facility], [address] | | LABORATORY | | | | [address], | | | | | | [place] [address] | | | | + + + + + + + + | Specimen | + + | Blood | + + + + + + + | Performing | Address | City/State/Zipcode | Phone Number | | Organization | | | | + + + + + | [facility] | [address] | [place] [address] | [phone] | + + + + + Basic [...] | >60Comment: GFR <60: | >60 | [facility] | | | GFR | [...] | | | | | performed at [facility], [address] | | | | | | [facility], | | | | | | [place] [address] | | | | + + + + + + + + | Specimen | + + | Blood | + + + + + + + | Performing | Address | City/State/Zipcode | Phone Number | | Organization | | | | + + + + + | [facility] | [address] | [place] [address] | [phone] | + + + + + Urinalysis [...] - 1.030 | [facility] | | | [place], | | | LABORATORY | | | [...] UA | NONE SEENComment: | NONE | [facility] | | | | Testing performed at | | LABORATORY | | | | [facility];[address];[place] [address] | | | | + + + [...] | + + + + + | [facility] | [address] | [place] [address] | [phone] | + + + + + Comprehensive [...] | >60Comment: GFR <60: | >60 | [facility] | | | GFR | [...] | | | | | performed at [facility] | | | | | | [facility];[place], [place] | | | | | | [address] | | | | + + + + + + + + | Specimen | + + | Blood | + + + + + + + | Performing | Address | City/State/Zipcode | Phone Number | | Organization | | | | + + + + + | [facility] | [address] | [place] [address] | [phone] | + + + + + CBC [...] | | | Absolute | performed at [facility];[address] | [address] | LABORATORY | | | | [address];[place] | | | | | | [address] | | | | + + + + + + + + | Specimen | + + | Blood | + + + + + + + | Performing | Address | City/State/Zipcode | Phone Number | | Organization | | | | + + + + + | [facility] | [address] | [place] [address] | [phone] | + + + + + documented [...] | | | | | | longer, fesdyh-naj-duqcu use of | | | | | [...]
--- OUTSIDE RECORDS SUMMARY | ~2019-09-24 | XMS | Encounter Summary ---
Demographics + + + | Address | [address] | | | [place] [address] | + + + | Home Phone [...] Team Providers + +------+ + | Care Pouch Maker Name | Role | Phone | + [...] [place] | | | | | | [address] | (Fax) | | | | | [phone] | | | +--------+ + + + [...]
--- OUTSIDE RECORDS SUMMARY | ~2019-09-24 | XMS | Encounter Summary ---
Demographics + + + | Address | [address] | | | [place] [address] | + + + | Home Phone [...] Team Providers + +------+ + | Care Skill Training Program Coordinator Name | Role | Phone | + [...] | | Required | | Adenocarcino | IRONWORKER APPRENTICE SHOP [address] | [address] | | | | | ma of | [address] | [place], | | | | | rectosigmoid | [address] | [place] [address] | | | | | junction | [place], [place] | Phone: | | | | | ([facility]) | [address] | [phone] | | | | | | Phone: | Fax: | | | | | | [phone] | [phone] | | | | | | Fax: | | | | | | | [phone] | | + + + + + [...] | | | Surgery / | | [address] | [address] | | | | General | | Charlee Santamaria | [address] | | | | Surgery | | [place], | [place], [place] | | | | | | [place] | [address] | | | | | | [address] | Phone: | | | | | | Phone: | [phone] | | | | | | [phone] | Fax: | | | | | | Fax: | [phone] | | | | | | [phone] | | + +--------+ + + + + Encounter Details +--------+---------+ + + + | Date | Type | Department | Care Team | Description | +--------+---------+ + + + | 09/20/ | Office | [facility] | Arabellacegabby, | Adenocarcinoma of | | 2019 | Visit | GENERAL SURGERY [address] | [address] | rectosigmoid | | | | [address] | [address] | junction (HCC) | | | | [place], [place] | [place] [address] | (Primary Dx) | | | | [address] | [phone] | | | | | [phone] | | | +--------+---------+ + + + [...] Exam Wound closed yes Wound clean yes Irvine/Sutures no Hernia noted no Wound drainage no Wound erythema no Seroma noted no IMPRESSION: SP laparoscopic colostomy PLAN: 1. Follow up oncology for chemotherapy 2. Referral to ostomy clinic 3. Continue lifting restrictions for another week 4. Regular diet okay AARON Bull 10:18 AM 09/20/19 documented in th is encounter Plan of Treatment + + +--------+ + + | Name | Type | Priori | Associated Diagnoses | Order Schedule | | | | ty | | | + + +--------+ + + | Ambulatory Referral | Outpatient | Routin | Adenocarcinoma of | Ordered: 09/20/2019 | | to 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
--- OUTSIDE RECORDS SUMMARY | ~2019-09-24 | XMS | Encounter Summary ---
Demographics + + + | Address | [address] | | | [place] [address] | + + + | Home Phone | | + + + | Preferred Language | Unknown | + + + | Marital Status | | + + + | Moravian Affiliation | Unknown | + + + [...] Team Providers + +------+ + | Care Ripsawyer Name | Role | Phone | + [...] | | Required | | Adenocarcino | DECK OFFICER [address] | [address] | | | | | ma of | [address] | [place], | | | | | rectosigmoid | [address] | [place] [address] | | | | | junction | [place], [place] | Phone: | | | | | ([facility]) | [address] | [phone] | | | | | | Phone: | Fax: | | | | | | [phone] | [phone] | | | | | | Fax: | | | | | | | [phone] | | + + + + + [...] | | | Surgery / | | [address] | [address] | | | | General | | Charlee Santamaria | [address] | | | | Surgery | | [place], | [place], [place] | | | | | | [place] | [address] | | | | | | [address] | Phone: | | | | | | Phone: | [phone] | | | | | | [phone] | Fax: | | | | | | Fax: | [phone] | | | | | | [phone] | | + +--------+ + + + + Encounter Details +--------+---------+ + + + | Date | Type | Department | Care Team | Description | +--------+---------+ + + + | 09/20/ | Office | [facility] | Arabellacegabby, | Adenocarcinoma of | | 2019 | Visit | GENERAL SURGERY [address] | [address] | rectosigmoid | | | | [address] | [address] | junction (HCC) | | | | [place], [place] | [place] [address] | (Primary Dx) | | | | [address] | [phone] | | | | | [phone] | | | +--------+---------+ + + + [...] Exam Wound closed yes Wound clean yes Ely/Sutures no Hernia noted no Wound drainage no [...] of | Ordered: 09/20/2019 | | to [facility] Ostomy / | Referral | e | rectosigmoid | | | Wound Care | | | junction (HCC) | | + + +--------+ + + documented as of this encounter Visit Diagnoses + + | Diagnosis | + + | 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
--- OUTSIDE RECORDS SUMMARY | ~2019-09-24 | XMS | Encounter Summary ---
Demographics + + + | Address | [address] | | | [place] [address] | + + + | Home Phone | | + + + | Preferred Language | Unknown | + + + | Marital Status | | + + + | Catholic Affiliation | Unknown | + + + | Race | Unknown | + + + | Ethnic Group | Unknown | + + + Author + + + | Author | [facility] | | | and [place] | + + + | Organization | [facility] | | [...] Team Providers + +------+ + | Care Proposal Manager Name | Role | Phone | + +------+ + | Lizette Martinez | PCP | | + +------+ + Encounter Details +--------+ + + + + | Date | Type | Department | Care Team | Description | +--------+ + + + + | 09/21/ | Documentati | [facility] | Jair, | | | 2019 | on | GENERAL SURGERY [address] | AARON Balbuena [address] | | | | | [address] | [address] | | | | | [facility] [place] | [place] [address] | | | | | [address] | [phone] | | | | | [phone] | | | +--------+ + + + [...] of this encounter Progress Notes Marija Mabry, Tool Or Die Drawing Checker - 09/21/2019 9:02 AM PSTRef[facility]. Confirmation received. documented in this encounter Plan of Treatment Not on filedocumented as of this encounter Visit Diagnoses Not on filedocumented in this encounter"
--- OUTSIDE RECORDS SUMMARY | ~2019-09-24 | XMS | Clinical Summary ---
Demographics + + + | Address | [address] | | | [place] [address] | + + + | Home Phone | | + + + | Preferred Language | Unknown | + + + | Marital Status | Unknown | + + + | Latter-Day Affiliation | Unknown | + + + | Race | Unknown | + + + | Ethnic Group | Unknown | + + + Author + + + | Author | [facility] (Historical as of | | | 05-20-19) | + + + | Organization | [facility] (Historical as of | | | 05-20-19) [...] Team Providers + +------+ + | Care After School Coordinator Name | Role | Phone | [...] | | + +--------+ +------+-------+ + | /[facility] | YELLOW | [id number] | | | | | PLANS | [place]WK | | | | | + +--------+ +------+-------+ + | MEDICARE | MEDICA | [id number] | | | [address] | | | RE | | | | [place] [address] | | | IP-OP | | | [...] | Self [birth year] Home: | [address] | | | al/Fam | | 1941 | [phone] [place] [address] | | | tunde | | | [phone] | | + +--------+ +--------+ + +
--- OUTSIDE RECORDS SUMMARY | ~2019-09-24 | XMS | Encounter Summary ---
Demographics + + + | Address | [address] | | | [place] [address] | + + + | Home Phone | | + + + | Preferred Language | Unknown | + + + | Marital Status | | + + + | Sabianism Affiliation | Unknown | + + + | Race | Unknown | + + + | Ethnic Group | Unknown | + + + Author + + + | Author | [facility] | | | and [place] | + + + | Organization | [facility] | | [...] Team Providers + +------+ + | Care Food And Beverage Coordinator Name | Role | Phone | + +------+ + | Lizette Martinez | PCP | | + +------+ + Encounter Details +--------+ + + + + | Date | Type | Department | Care Team | Description | +--------+ + + + + | 08/26/ | Hospital | [facility] | Phong Tyson, | | | 2018 | Encounter | MEDICAL CENTER POC | [address] | | | | | [address] | [address] | | | | | [address] | [place] [address] | | | | | [place], [place] | [phone] | | | | | [address] | | | | | | [phone] | | | +--------+ + + + [...]
--- OUTSIDE RECORDS SUMMARY | ~2019-09-24 | XMS | Encounter Summary ---
Demographics + + + | Address | [address] | | | [place] [address] | + + + | Home Phone | | + + + | Preferred Language | Unknown | + + + | Marital Status | | + + + | Mormonism Affiliation | Unknown | + + + | Race | Unknown | + + + | Ethnic Group | Unknown | + + + Author + + + | Author | [facility] | | | and [place] | + + + | Organization | [facility] | | | [...] Team Providers + +------+ + | Care Commuter Pilot Name | Role | Phone | + [...] | Required | Oncology | Adenocarcino | FLIGHT READINESS TECHNICIAN [address] | Paras Leach MD | | | | | ma of | [address] | [address] | | | | | rectosigmoid | [address] | [facility] | | | | | junction | [place] | [place] | | | | | (HCC) | [address] | [address] Phone: | | | | | | Phone: | [phone] | | | | | | [phone] | Fax: | | | | | | Fax: | [phone] | | | | | | [phone] | | + + + + + + + Encounter Details +--------+ + + + + | Date | Type | Department | Care Team | Description | +--------+ + + + + | 09/05/ | Orders Only | [facility] | Alva See | Adenocarcinoma of | | 2019 | | GENERAL SURGERY [address] | R, RN | rectosigmoid | | | | [address] | | junction (HCC) | | | | [place] | | (Primary Dx) | | | | [address] | | | | | | [phone] | | | +--------+ + + + [...] of this encounter Plan of Treatment + + +--------+ [...]
--- OUTSIDE RECORDS SUMMARY | ~2019-09-24 | XMS | Encounter Summary ---
Demographics + + + | Address | [address] | | | [place] [address] | + + + | Home Phone | | + + + | Preferred Language | Unknown | + + + | Marital Status | | + + + | Pentecostal Affiliation | Unknown | + + + | Race | Unknown | + + + | Ethnic Group | Unknown | + + + Author + + + | Author | [facility] | | | and [place] | + + + | Organization | [facility] | | | [...] Team Providers + +------+ + | Care Pest Control Worker Name | Role | Phone | + [...] + + | 08/26/ | Anesthesia | [facility] | Judson Mcmullen | | | 2019 | Event [facility] | [address] | | | | | [address] | [address] | | | | | [address] | [place] [address] | | | | | [place], [place] | [phone] | | | | | [address] | | | | | | [phone] | | | +--------+ + + + [...]
--- OUTSIDE RECORDS SUMMARY | ~2019-09-24 | XMS | Encounter Summary ---
Demographics + + + | Address | [address] | | | [place] [address] | + + + | Home Phone | | + + + | Preferred Language | Unknown | + + + | Marital Status | | + + + | Zoroastrianism Affiliation | Unknown | + + + | Race | Unknown | + + + | Ethnic Group | Unknown | + + + Author + + + | Author | [facility] | | | and [place] | + + + | Organization | [facility] | | | [...] Team Providers + +------+ + | Care Family Service Worker Name | Role | Phone | [...] Trung A[address] | | | | | [phone] | [place] [address] | | +--------+ + + + + [...]
--- OUTSIDE RECORDS SUMMARY | ~2019-09-24 | XMS | Encounter Summary ---
Demographics + + + | Address | [address] | | | [place] [address] | + + + | Home Phone [...] Team Providers + +------+ + | Care Hide Sorter Name | Role | Phone | + +------+ + | Lizette Martinez | PCP | | + +------+ + Encounter Details +--------+ + + + + | Date | Type | Department | Care Team | Description | +--------+ + + + + | 09/05/ | Documentati | [facility] | Evelyne Gonzalez, | | | 2019 | on | GENERAL SURGERY [address] | Cement Mixer Driver | | | | | [address] | | | | | | [place] | | | | | | [address] | | | | | | [phone] | | | +--------+ + + + [...] as of this encounter Progress Notes Evelyne Gonzalez, Cement Mixer Driver - 09/05/2019 10:45 AM PSTPertinent medical records and demographics sent to patient's PCP and Dr. Paras Oliva per ONN request via fax. Fax confirmation received. Electronically signed by Evelyne Gonzalez Cement Mixer Driver at 09/05 10:46 AM PSTdocumented in this encounter Plan of Treatment Not on filedocumented as of this encounter Visit Diagnoses Not on filedocumented in this encounter"
--- OUTSIDE RECORDS SUMMARY | ~2019-09-24 | XMS | Encounter Summary ---
Demographics + + + | Address | [address] | | | [place] [address] | + + + | Home Phone | | + + + | Preferred Language | Unknown | + + + | Marital Status | | + + + | Jehovah'S Witness Affiliation | Unknown | + + + | Race | Unknown | + + + | Ethnic Group | Unknown | + + + Author + + + | Author | [facility] | | | and [place] | + + + | Organization | [facility] | | [...] Providers + +------+ + | Care Manager Primary Name | Role | Phone | + [...] + + | 08/26/ | Anesthesia | [facility] | Judson Mcmullen | | | 2019 | Event [facility] | [address] | | | | | [address] | [address] | | | | | [address] | [place] [address] | | | | | [place], [place] | [phone] | | | | | [address] | | | | | | [phone] | | | +--------+ + + + [...]
--- OUTSIDE RECORDS SUMMARY | ~2019-09-24 | XMS | Encounter Summary ---
Demographics + + + | Address | [address] | | | [place] [address] | + + + | Home Phone | | + + + | Preferred Language | Unknown | + + + | Marital Status | | + + + | Oriental Orthodox Affiliation | Unknown | + + + | Race | Unknown | + + + | Ethnic Group | Unknown | + + + Author + + + | Author | [facility] | | | and [place] | + + + | Organization | [facility] | | [...] Team Providers + +------+ + | Care Mobile Ui/Ux Designer Name | Role | Phone | [...] Trung AYALA | | | | | [phone] | [place] [address] | | +--------+ + + + + [...] + + documented in this encounter Results US Abdomen Limited (09/07/2019 12:00 AM [...]
--- OUTSIDE RECORDS SUMMARY | ~2019-09-24 | XMS | Encounter Summary ---
Demographics + + + | Address | [address] | | | [place] [address] | + + + | Home Phone | | + + + | Preferred Language | Unknown | + + + | Marital Status | | + + + | Confucianism Affiliation | Unknown | + + + | Race | Unknown | + + + | Ethnic Group | Unknown | + + + Author + + + | Author | [facility] | | | and [place] | + + + | Organization | [facility] | | [...] Team Providers + +------+ + | Care Utility Service Worker Name | Role | Phone [...] + + + + + + | Pending | Specialty | Surgery - | Diagnoses | | Tahir, | | Review | Services | Surgical | | Pj, | Emeterio Godfrey, | | | Required | Critical Care | Adenocarcino | Paras C, | MD [address] | | | | | ma of | MD [address] | | | | | rectosigmoid | [address] | [place], [place] | | | | | junction | [place], | [address] | | | | | ([facility]) | [place] [address] | Phone: | | | | | | Phone: | [phone] | | | | | | [phone] | Fax: | | | | | | Fax: | [phone] | | | | | | [phone] | | + + + + + [...] | Required | Oncology | Adenocarcino | WEBBING INSPECTOR [address] | Paras Leach MD | | | | | ma of | [address] | [address] | | | | | rectosigmoid | [address] | [address] [place] | | | | | junction | [place], [place] | [place], [place] | | | | | ([facility]) | [address] | [address] Phone: | | | | | | Phone: | [phone] | | | | | | [phone] | Fax: | | | | | | Fax: | [phone] | | | | | | [phone] | | + + + + + + + Encounter Details +--------+ + + + + | Date | Type | Department | Care Team | Description | +--------+ + + + + | 09/14/ | Hospital | [facility] | Pj, | Adenocarcinoma of | | 2019 | Encounter | [facility] | Paras Leach MD [address] | rectosigmoid | | | | [facility] [address] [place] | junction (HCC) | | | | [address] [place] | [place] [address] | | | | | [place] [address] | [phone] | | | | | [phone] | | | +--------+ + + + [...] tablet by | 100 | 0 | 12/12/20 | | | (ROXICODONE) 5 mg | [...]
--- OUTSIDE RECORDS SUMMARY | ~2019-09-24 | XMS | Encounter Summary ---
Demographics + + + | Address | [address] | | | [place] [address] | + + + | Home Phone [...] Team Providers + +------+ + | Care Flavor Room Worker Name | Role | Phone | [...] + + | 08/26/ | Surgery | [facility] | Phong Tyson, | LAPAROSCOPIC | | 2019 | | [facility] | [address] | COLOSTOMY CREATION | | | | OPERATING ROOM [address] | [address] | | | | | [address] | [place] [address] | | | | | [place], [place] | [phone] | | | | | [address] | | | | | | [phone] | | | +--------+---------+ + + + [...] Barker MD - 08/30/2019 2:35 PM PST [facility] Service: Hospitalist Physician Discharge Summary Patient ID: Kris WALKERN: [id number] 1940 78 y.o. Admit date: 08/25/2019 Discharge [...] SNF placemen t. He was accepted at [place]. Referral to a local oncologist was sent. He will follow up with surgery in 2 weeks. Past Medical History: Past Medical History: Diagnosis Date Hyperlipidemia Hypertension 2004 Tobacco abuse Past Surgical History: Procedure Laterality Date COLOSTOMY N/A 08/26/2019 Procedure: LAPAROSCOPIC COLOSTOMY CREATION; Surgeon: Phong Tyson MD; Location: [facility] MAIN OR OTHER SURGICAL HISTORY Left 1985 ORIF ANKLE FRACTURE OTHER SURGICAL HISTORY Bilateral 2017 CATARACT EXTRACTION SIGMOIDOSCOPY N/A 08/26/2019 Procedure: SIGMOIDOSCOPY FLEXIBLE; Surgeon: Phong Tyson MD; Location: [facility] MAIN OR Discharged [...] input(s): ABG Disposition: Follow up: GRIFFIN Royal [address] [facility] [address] Go on 09/11/2019 You have an appointment at 0930 on 09/11/2019 with Lizette MOYA [address] [address] Phong Tyson MD [address] [place] [address] Schedule an appointment as soon as possible [...] Gonzalez RN - 08/29/2019 2:04 PM PST [facility] Service: Ostomy Care Consult Note Hospital Day: 4 SUBJECTIVE Patient Summary: Ostomy nurse in for continued teaching. Family at bedside. 08/29/19 3537 Visit Information Visit Type Initial ostomy/fistula assessement [...] is to return [facility] for return [facility]. Patient receives his healthcare through the [facility]. CM has c ontacted patient's PCP and they will work with DME to get his ostomy supplies. Ostomy RX fo rm filled out with patient's specific ostomy appliances and JOSE MARIA has faxed this to the PCP. P joey is to provide patient with enough pouching supplies to last 2 weeks (until his post-op a ppointment) [facility] starter kit ordered with pt's permission # [id number] Thank you for allowing me to participate in the care of this patient. Soledad Berger RN, CWON 08/29/2019 14:04 Jasmin Herrmann MD - 08/29/2019 1:18 PM PSTFormatting of this note might be different from the or iginal. [facility] Service: Hospitalist Progress Note Hospital Day: LOS: 4 days SUBJECTIVE Patient Summary: Mr. Delgado is a 78 yr old man with HTN and HLD presented with 2.5 months of nonradiating LUQ and periumbilical pain associated with watery diarrhea and recently with rectal bleeding. 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 1940 Med. Record Number: [id number] Date of admission: 08/25/2019 Service(s): Colorectal Surgery [...] nursing note reviewed. Exam conducted with a polysomnographic tech present. Cardiovascular: Rate and Rhythm: Normal rate. [...] Malik here in [facility] or supposedly there is a heme/onc Dr in the [facility] (where they live). HTN BP's remain low-normal [...] BMI 28.00 kg/m Physical exam: AOx3 NAD [place] Heart RRR Lungs CTa Abd SNTND +BS Ostomy has stool output Giuliano Villaseñor DO 08/28/2019 2:50 PM Sree Smith ARN P - 08/28/2019 8:17 AM PST Colorectal Surgery Progress Note Pt. Name/Age/: Kris Delgado 78 y.o. 1940 Med. Record Number: [id number] Date of admission: 08/25/2019 Service(s): Colorectal Surgery [...] nursing note reviewed. Exam conducted with a polysomnographic tech present. Cardiovascular: Rate and Rhythm: Normal rate. [...] Encourage ambulation 2. General diet ok 3. green promotions specialist consult and teaching AARON Bull 11:50 [...] BMI 28.00 kg/m Physical exam: NAD AOx3 [place] Heart RRR Lungs CTA Abd SNTND +BS [...] BMI 28.00 kg/m Physical exam: AOx3 NAD [place] Heart RRR Lungs CTA Abd SNTND ostomy [...] in left ear, independent. Chart check complete hSade Larsen RN 08/26/19 @7:47 AM Valentín Navarro [facility] - 08/25/2019 7:41 PM PSTRx Admission Medication History Note I have reviewed the medication history for appropriate doses obtained by: ED Pharmacist After reviewing the home medication list : I agree with the home medications list. Confirmed TITLE OFFICER medications with patient and insurance fill history. Adjusted TITLE OFFICER medications according to the mosaic technician note below. - removed lopermaide. Per [...] J?MRN: | | | | | | [id number] | | | [id number] | | | riteri | | | [...] | | | St. | | | [place] | | | y | | | [...] | | | St. | | | [place] | | | y H. | | [...] | | | St. | | | [place] | | | y H. | | [...] | | | 1-103a | | | [id number] | | | 40 | | | [...] | >60Comment: GFR <60: | >60 | [facility] | | | GFR | [...] | | | | | performed at [facility], [address] | | | | | | [facility], | | | | | | [place] [address] | | | | + + + + + + + + | Specimen | + + | Blood | + + + + + + + | Performing | Address | City/State/Zipcode | Phone Number | | Organization | | | | + + + + + | [facility] | [address] | [place] [address] | [phone] | + + + + + CBC [...] | | | | | [place] [address] | | | | + + + + + + + + | Specimen | + + | Blood | + + + + + + + | Performing | Address | City/State/Zipcode | Phone Number | | Organization | | | | + + + + + | [facility] | [address] | [place] [address] | [phone] | + + + + + Phosphorus (08/29/2019 4:53 AM PST) + + + + + + | Component | Value | Ref Range | Performed | Pathologist | | | | | At | Signature | + + + + + + | Phosphorus | 3.0Comment: Testing | 2.3 - 4.8 mg/dL | [facility] | | | | performed at [facility];[address] | | LABORATORY | | | | [address];[place] | | | | | | [address] | | | | + + + + + + + + | Specimen | + + | Blood | + + + + + + + | Performing | Address | City/State/Zipcode | Phone Number | | Organization | | | | + + + + + | [facility] | [address] [facility] | [place] [address] | [phone] | + + + + + Magnesium (08/29/2019 4:53 AM PST) + + + + + + | Component | Value | Ref Range | Performed | Pathologist | | | | | At | Signature | + + + + + + | Magnesium | 1.7Comment: Testing | 1.7 - 2.4 mg/dL | [facility] | | | | performed at [facility];[address] | | LABORATORY | | | | [address];[place], [place] | | | | | | [address] | | | | + + + + + + + + | Specimen | + + | Blood | + + + + + + + | Performing | Address | City/State/Zipcode | Phone Number | | Organization | | | | + + + + + | [facility] | [address] | [place] [address] | [phone] | + + + + + Basic [...] | | | | | | MDRD IDWI traceable | | | | | | equation.Testing | | | | | | performed at [facility];[address] | | | | | | [facility];[place], [place] | | | | | | [address] | | | | + + + + + + + + | Specimen | + + | Blood | + + + + + + + | Performing | Address | City/State/Zipcode | Phone Number | | Organization | | | | + + + + + | [facility] | [address] | [place] [address] | [phone] | + + + + + CBC [...] | | | Absolute | performed at [facility];[address] | [address] | LABORATORY | | | | [address];[place], [place] | | | | | | [address] | | | | + + + + + + + + | Specimen | + + | Blood | + + + + + + + | Performing | Address | City/State/Zipcode | Phone Number | | Organization | | | | + + + + + | [facility] | [address] [facility] | [place] [address] | [phone] | + + + + + POC [...] | | | POC | performed at [facility];[address] | | LABORATORY | | | | [address];[place], [place] | | | | | | [address] | | | | + + + + + + + + | Specimen | + + | | + + + + + + + | Performing | Address | City/State/Zipcode | Phone Number | | Organization | | | | + + + + + | [facility] | [address] | [place] [address] | [phone] | + + + + + POC [...] | | | POC | performed at [facility];[address] | | LABORATORY | | | | [address];[place] | | | | | | [address] | | | | + + + + + + + + | Specimen | + + | | + + + + + + + | Performing | Address | City/State/Zipcode | Phone Number | | Organization | | | | + + + + + | [facility] | [address] | [place] [address] | [phone] | + + + + + POC Glucose (08/28/2019 8:48 AM PST) + + + + + + | Component | Value | Ref Range | Performed | Pathologist | | | | | At | Signature | + + + + + + | Glucose, | 98Comment: Testing | 65 - 99 mg/dL | [facility] | | | POC | performed at [facility];[address] | | LABORATORY | | | | [address];[place] | | | | | | [address] | | | | + + + + + + + + | Specimen | + + | | + + + + + + + | Performing | Address | City/State/Zipcode | Phone Number | | Organization | | | | + + + + + | [facility] | [address] | [place] [address] | [phone] | + + + + + Phosphorus (08/28/2019 4:18 AM PST) + + + + + + | Component | Value | Ref Range | Performed | Pathologist | | | | | At | Signature | + + + + + + | Phosphorus | 2.1 (L)Comment: Testing | 2.3 - 4.8 mg/dL | [facility] | | | | performed at [facility], [address] | | LABORATORY | | | | [address], | | | | | | [place] [address] | | | | + + + + + + + + | Specimen | + + | Blood | + + + + + + + | Performing | Address | City/State/Zipcode | Phone Number | | Organization | | | | + + + + + | [facility] | [address] | [place] [address] | [phone] | + + + + + Magnesium (08/28/2019 4:18 AM PST) + + + + + + | Component | Value | Ref Range | Performed | Pathologist | | | | | At | Signature | + + + + + + | Magnesium | 2.0Comment: Testing | 1.7 - 2.4 mg/dL | [facility] | | | | performed at [facility], [address] | | LABORATORY | | | | [address], | | | | | | [place] [address] | | | | + + + + + + + + | Specimen | + + | Blood | + + + + + + + | Performing | Address | City/State/Zipcode | Phone Number | | Organization | | | | + + + + + | [facility] | [address] | [place] [address] | [phone] | + + + + + Basic [...] | | | | | performed at [facility], [address] | | | | | | [address], | | | | | | [place] [address] | | | | + + + + + + + + | Specimen | + + | Blood | + + + + + + + | Performing | Address | City/State/Zipcode | Phone Number | | Organization | | | | + + + + + | [facility] | [address] | [place] [address] | [phone] | + + + + + CBC [...] | | | Absolute | performed at [facility], [address] | K/uL | LABORATORY | | | | [address], | | | | | | [place] [address] | | | | + + + + + + + + | Specimen | + + | Blood | + + + + + + + | Performing | Address | City/State/Zipcode | Phone Number | | Organization | | | | + + + + + | [facility] | [address] | [place] [address] | [phone] | + + + + + POC Glucose (08/27/2019 8:35 PM PST) + + + + + + | Component | Value | Ref Range | Performed | Pathologist | | | | | At | Signature | + + + + + + | Glucose, | 129 (H)Comment: Testing | 65 - 99 mg/dL | [facility] | | | POC | performed at [facility];[address] | | LABORATORY | | | | [address];[place] | | | | | | [address] | | | | + + + + + + + + | Specimen | + + | | + + + + + + + | Performing | Address | City/State/Zipcode | Phone Number | | Organization | | | | + + + + + | [facility] | [address] | [place] [address] | [phone] | + + + + + POC Glucose (08/27/2019 12:05 PM PST) + + + + + + | Component | Value | Ref Range | Performed | Pathologist | | | | | At | Signature | + + + + + + | Glucose, | 99Comment: Testing | 65 - 99 mg/dL | [facility] | | | POC | performed at [facility];[address] | | LABORATORY | | | | [address];[place], [place] | | | | | | [address] | | | | + + + + + + + + | Specimen | + + | | + + + + + + + | Performing | Address | City/State/Zipcode | Phone Number | | Organization | | | | + + + + + | [facility] | [address] | [place] [address] | [phone] | + + + + + POC Glucose (08/27/2019 8:01 AM PST) + + + + + + | Component | Value | Ref Range | Performed | Pathologist | | | | | At | Signature | + + + + + + | Glucose, | 85Comment: Testing | 65 - 99 mg/dL | [facility] | | | POC | performed at [facility];[address] | | LABORATORY | | | | [address];[place] | | | | | | [address] | | | | + + + + + + + + | Specimen | + + | | + + + + + + + | Performing | Address | City/State/Zipcode | Phone Number | | Organization | | | | + + + + + | [facility] | [address] | [place] [address] | [phone] | + + + + + Phosphorus (08/27/2019 5:10 AM PST) + + + + + + | Component | Value | Ref Range | Performed | Pathologist | | | | | At | Signature | + + + + + + | Phosphorus | 3.8Comment: Testing | 2.3 - 4.8 mg/dL | [facility] | | | | performed at [facility], [address] | | LABORATORY | | | | [address], | | | | | | [place] [address] | | | | + + + + + + + + | Specimen | + + | Blood | + + + + + + + | Performing | Address | City/State/Zipcode | Phone Number | | Organization | | | | + + + + + | [facility] | [address] | [place] [address] | [phone] | + + + + + Magnesium (08/27/2019 5:10 AM PST) + + + + + + | Component | Value | Ref Range | Performed | Pathologist | | | | | At | Signature | + + + + + + | Magnesium | 2.2Comment: Testing | 1.7 - 2.4 mg/dL | [facility] | | | | performed at [facility], [address] | | LABORATORY | | | | [address], | | | | | | [place] [address] | | | | + + + + + + + + | Specimen | + + | Blood | + + + + + + + | Performing | Address | City/State/Zipcode | Phone Number | | Organization | | | | + + + + + | [facility] | [address] | [place] [address] | [phone] | + + + + + Basic [...] | >60Comment: GFR <60: | >60 | [facility] | | | GFR | [...] | | | | | | MDRD IDWI traceable | | | | | | equation.Testing | | | | | | performed at [facility], [address] | | | | | | [facility], | | | | | | [place] [address] | | | | + + + + + + + + | Specimen | + + | Blood | + + + + + + + | Performing | Address | City/State/Zipcode | Phone Number | | Organization | | | | + + + + + | [facility] | [address] | [place] [address] | [phone] | + + + + + CBC [...] at | | | | | | [facility], [address] [facility] | | | | | | [place] | | | | | | [address] | | | | + + + + + + + + | Specimen | + + | Blood | + + + + + + + | Performing | Address | City/State/Zipcode | Phone Number | | Organization | | | | + + + + + | [facility] | [address] | [place] [address] | [phone] | + + + + + POC Glucose (08/27/2019 4:06 AM PST) + + + + + + | Component | Value | Ref Range | Performed | Pathologist | | | | | At | Signature | + + + + + + | Glucose, | 81Comment: Testing | 65 - 99 mg/dL | [facility] | | | POC | performed at [facility];[address] | | LABORATORY | | | | [address];[place], [place] | | | | | | [address] | | | | + + + + + + + + | Specimen | + + | | + + + + + + + | Performing | Address | City/State/Zipcode | Phone Number | | Organization | | | | + + + + + | [facility] | [address] | [place] [address] | [phone] | + + + + + POC [...] | | | POC | performed at [facility];[address] | | LABORATORY | | | | [address];[place] | | | | | | [address] | | | | + + + + + + + + | Specimen | + + | | + + + + + + + | Performing | Address | City/State/Zipcode | Phone Number | | Organization | | | | + + + + + | [facility] | [address] | [place] [address] | [phone] | + + + + + Surgical [...] of the | | | rectum (see [id number]). As part of [facility]' Quality | | | Improvement Program, this [...] surfaceis barker-yellow and lobulated. | | | Dental Detail Representative sections are submitted in cassette (A1). B. [...] is barker-yellow and | | | lobulated. Dental Detail Representative sections are submitted incassette (B1). | | [...] component was performed | | | by [facility], [address] [place] [address] (Medical | | | Director: Yenny Young MD; CLIA# [id number]). Professional | | | interpretation [facility] | | | [address] [address] (Medical | | | Director: Kenyon Delacruz M.D.; CLIA#: [id number]). REASON FOR | | | ADDENDUM:Results of [...] | | | preparation) was performed at [facility]. | | | Interpretation was performed at [facility]. | | | Immunohistochemical studies and/or special stains were performed on | | | this case with the appropriate controls, which stain appropriately. | | | These tests were developed and their performance characteristics | | | determined by [facility] and/or [facility]. These tests | | | may have not been cleared or approved by the U.S. Food and Drug | | | Administration. The FDA has determined that suchclearance or | | | approval is not necessary. [facility] and [facility] are certified | | | under the [...] BAND | Testing performed at | | [facility] | | | | [facility];[address] | | LABORATORY | | | | [address];[place] [address] | | | | + + + + + + + + | Specimen | + + | Blood | + + + + + + + | Performing | Address | City/State/Zipcode | Phone Number | | Organization | | | | + + + + + | [facility] | [address] | [place] [address] | [phone] | + + + + + Protime [...] | | | | | performed at [facility];[address] | | | | | | [address];[place] | | | | | | [address] | | | | + + + + + + + + | Specimen | + + | Blood | + + + + + + + | Performing | Address | City/State/Zipcode | Phone Number | | Organization | | | | + + + + + | [facility] | [address] | [place] [address] | [phone] | + + + + + Ferritin [...] | | | | | [place] [address] | | | | + + + + + + + + | Specimen | + + | Blood | + + + + + + + | Performing | Address | City/State/Zipcode | Phone Number | | Organization | | | | + + + + + | [facility] | [address] | [place] [address] | [phone] | + + + + + Iron [...] | | | | | [place] [address] | | | | + + + + + + + + | Specimen | + + | Blood | + + + + + + + | Performing | Address | City/State/Zipcode | Phone Number | | Organization | | | | + + + + + | [facility] | [address] | [place] [address] | [phone] | + + + + + CBC [...] STEW | | | | performed at [facility], [address] | | LABORATORY | | | | [address], | | | | | | [place] [address] | | | | + + + + + + + + | Specimen | + + | Blood | + + + + + + + | Performing | Address | City/State/Zipcode | Phone Number | | Organization | | | | + + + + + | [facility] | [address] | [place] [address] | [phone] | + + + + + Basic [...] | | | | | performed at [facility], [address] | | | | | | [address], | | | | | | [place] [address] | | | | + + + + + + + + | Specimen | + + | Blood | + + + + + + + | Performing | Address | City/State/Zipcode | Phone Number | | Organization | | | | + + + + + | [facility] | [address] | [place] [address] | [phone] | + + + + + Urinalysis [...] - 1.030 | [facility] | | | [place], | | | LABORATORY | | | [...] | | LABORATORY | | | | [facility];[address] | | | | | | [address];[place] [address] | | | | + + + [...] | + + + + + | [facility] | [address] | [place] [address] | [phone] | + + + + + Comprehensive [...] | >60Comment: GFR <60: | >60 | [facility] | | | GFR | [...] | | | | | | MDRD IDWI traceable | | | | | | equation.Testing | | | | | | performed at [facility] | | | | | | [facility];[place], [place] | | | | | | [address] | | | | + + + + + + + + | Specimen | + + | Blood | + + + + + + + | Performing | Address | City/State/Zipcode | Phone Number | | Organization | | | | + + + + + | [facility] | [address] | [place] [address] | [phone] | + + + + + CBC [...] | | | Absolute | performed at [facility];[address] | [address] | LABORATORY | | | | [address];[place], [place] | | | | | | [address] | | | | + + + + + + + + | Specimen | + + | Blood | + + + + + + + | Performing | Address | City/State/Zipcode | Phone Number | | Organization | | | | + + + + + | [facility] | [address] | [place] [address] | [phone] | + + + + + documented [...]
--- OUTSIDE RECORDS SUMMARY | ~2019-09-24 | XMS | Encounter Summary ---
Demographics + + + | Address | [address] | | | [place] [address] | + + + | Home Phone | | + + + | Preferred Language | Unknown | + + + | Marital Status | | + + + | Jain Affiliation | Unknown | + + + | Race | Unknown | + + + | Ethnic Group | Unknown | + + + Author + + + | Author | [facility] | | | and [place] | + + + | Organization | [facility] | | [...] Team Providers + +------+ + | Care Pastry Decorator Name | Role | Phone | + [...] | | rectosigmoid | [address] | [place], [place] | | | | | junction | [place], | [address] | | | | | ([facility]) | [place] [address] | Phone: | | | | | | Phone: | [phone] | | | | | | [phone] | Fax: | | | | | | Fax: | [phone] | | | | | | [phone] | | + + + + + [...] | Required | Oncology | [address] | [address] | Paras Leach MD | | | | | ma of | [address] | [address] | | | | | rectosigmoid | [address] [place] | | | | | junction | [place], [place] | [place], [place] | | | | | ([facility]) | [address] | [address] Phone: | | | | | | Phone: | [phone] | | | | | | [phone] | Fax: | | | | | | Fax: | [phone] | | | | | | [phone] | | + + + + + + + Encounter Details +--------+ + + + + | Date | Type | Department | Care Team | Description | +--------+ + + + + | 09/14/ | Hospital | [facility] | Pj, | 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
--- OUTSIDE RECORDS SUMMARY | ~2019-09-24 | XMS | Encounter Summary ---
Demographics + + + | Address | [address] | | | [place] [address] | + + + | Home Phone | | + + + | Preferred Language | Unknown | + + + | Marital Status | | + + + | Taoist Affiliation | Unknown | + + + | Race | Unknown | + + + | Ethnic Group | Unknown | + + + Author + + + | Author | [facility] | | | and [place] | + + + | Organization | [facility] | | [...] Team Providers + +------+ + | Care Trolley Operator Name | Role | Phone | [...] + + | 08/25/ | Hospital | [facility] | Enio Lange, | Colorectal tumor | | 2019 - | Encounter | [facility] [address] | MD [address] | (Primary Dx); Rectal | | | | [address] | [place] [address] | obstruction; | | 08/30/ | | [place], [place] | [phone] | Colorectal tumor; | | 2019 | | [address] | | Rectal obstruction; | | | | [phone] | Errol Mart MD | Anemia, unspecified | | | | | [address] | type; Essential | | | | | [place] [address] | hypertension | | | | | [phone] | | | | | | | | | | | | Giuliano Villaseñor, | | | | | | [address] | | | | | | [address] | | | | | | [place] [address] | | | | | | [phone] | | | | | | | | | | | | Jasmin Barker MD | | | | | | [address] | | | | | | [place] [address] | | | | | | [phone] | | | | | | | [...] Barker MD - 08/30/2019 2:35 PM PST [facility]: Hospitalist Physician Discharge Summary Patient ID: [...] for a rolling walker. He agreed for [facility] placemen t. He was accepted at [facility]. Referral to a local oncologist was sent. He will follow up with surgery in 2 weeks. Past Medical History: Past Medical History: Diagnosis Date Hyperlipidemia Hypertension 2004 Tobacco abuse Past Surgical History: Procedure Laterality Date COLOSTOMY N/A 08/26/2019 Procedure: LAPAROSCOPIC COLOSTOMY CREATION; Surgeon: Phong Tyson MD; [place] [facility] OTHER SURGICAL HISTORY Left 1984 ORIF ANKLE FRACTURE OTHER SURGICAL HISTORY Bilateral 2016 CATARACT EXTRACTION SIGMOIDOSCOPY N/A 08/26/2019 Procedure: SIGMOIDOSCOPY FLEXIBLE; Surgeon: Phong Tyson MD; [facility] Discharged Condition: Stable for discharge [...] input(s): ABG Disposition: Follow up: GRIFFIN Royal [address] [facility] [address] Go on 09/11/2019 You have an appointment at 0930 on 09/11/2019 with Lizette MOYA [address] [id number] Phong Tyson MD [address] [place] [id number] Schedule an appointment as soon as possible [...] Gonzalez RN - 08/29/2019 2:04 PM PST [facility]: Ostomy Care Consult Note Hospital Day: [...] (until his post-op a ppointment) [facility] starter kit ordered with pt's permission # [id number] Thank you for allowing me to participate in the care of this patient. Soledad Berger RN, CWON 08/29/2019 14:04 Jasmin Herrmann MD - 08/29/2019 1:18 PM PSTFormatting of this note might be different from the or iginal. [facility]: Hospitalist Progress Note Hospital Day: LOS: [...] Delgado 78 y.o. 1940 Med. Record Number: [id number] Date of admission: 08/25/2019 Service(s): Colorectal Surgery [...] nursing note reviewed. Exam conducted with a batch operator present. Cardiovascular: Rate and Rhythm: Normal rate. [...] there is a heme/onc Dr in the [facility] (where they live). HTN BP's remain [...] BMI 28.00 kg/m Physical exam: AOx3 NAD LAC COURTE OREILLES Heart RRR Lungs CTa Abd SNTND +BS Ostomy has stool output iGuliano Villaseñor DO 08/28/2019 2:50 PM Sree Smith ARN P - 08/28/2019 8:17 AM PST Colorectal Surgery Progress Note Pt. Name/Age/: Kris Delgado 78 y.o. 1940 Med. Record Number: [id number] Date of admission: 08/25/2019 Service(s): Colorectal Surgery [...] nursing note reviewed. Exam conducted with a batch operator present. Cardiovascular: Rate and Rhythm: Normal rate. [...] Encourage ambulation 2. General diet ok 3. 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 Confirmed [employer] SPECIALIST medications with patient and insurance fill history. Adjusted EVENT L[employer] SPECIALIST medications according to the telemetry technician note below. - removed lopermaide. Per [...] J?MRN: | | | | | | [id number] | | | [id number] | | | riteri | | | [...] | | | St. | | | [place] | | | y | | | [...] | | | St. | | | [place] | | | y H. | | [...] | | | St. | | | [place] | | | y H. | | [...] | | | 1-103a | | | [id number] | | | 41 | | | [...] | | | | | performed at [facility], [address] | | | | | | [address] [facility], | | | | | | [place] [address] | | | | + + + + + + + + | Specimen | + + | Blood | + + + + + + + | Performing | Address | City/State/Zipcode | Phone Number | | Organization | | | | + + + + + | [facility] | [address] | [place] [address] | [phone] | + + + + + CBC [...] 0.04Comment: Testing | 0.00 - 0.10 | [facility] | | | Absolute | performed at [facility], [address] | K/uL | LABORATORY | | | | [address], | | | | | | [place] [address] | | | | + + + + + + + + | Specimen | + + | Blood | + + + + + + + | Performing | Address | City/State/Zipcode | Phone Number | | Organization | | | | + + + + + | [facility] | [address] | [place] [address] | [phone] | + + + + + Phosphorus (08/29/2019 4:53 AM PST) + + + + + + | Component | Value | Ref Range | Performed | Pathologist | | | | | At | Signature | + + + + + + | Phosphorus | 3.0Comment: Testing | 2.3 - 4.8 mg/dL | [facility] | | | | performed at [facility];[address] | | LABORATORY | | | | [address];[place], [place] | | | | | | [address] | | | | + + + + + + + + | Specimen | + + | Blood | + + + + + + + | Performing | Address | City/State/Zipcode | Phone Number | | Organization | | | | + + + + + | [facility] | [address] | [place] [address] | [phone] | + + + + + Magnesium (08/29/2019 4:53 AM PST) + + + + + + | Component | Value | Ref Range | Performed | Pathologist | | | | | At | Signature | + + + + + + | Magnesium | 1.7Comment: Testing | 1.7 - 2.4 mg/dL | [facility] | | | | performed at [facility];[address] | | LABORATORY | | | | [address];[place] | | | | | | [address] | | | | + + + + + + + + | Specimen | + + | Blood | + + + + + + + | Performing | Address | City/State/Zipcode | Phone Number | | Organization | | | | + + + + + | [facility] | [address] | [place] [address] | [phone] | + + + + + Basic [...] | >60Comment: GFR <60: | >60 | [facility] | | | GFR | CHRONIC [...] | | | | | performed at [facility] | | | | | | [facility];[place], [place] | | | | | | [address] | | | | + + + + + + + + | Specimen | + + | Blood | + + + + + + + | Performing | Address | City/State/Zipcode | Phone Number | | Organization | | | | + + + + + | [facility] | [address] | [place] [address] | [phone] | + + + + + CBC [...] | | | Absolute | performed at [facility];[address] | [address] | LABORATORY | | | | [facility];[place], [place] | | | | | | [address] | | | | + + + + + + + + | Specimen | + + | Blood | + + + + + + + | Performing | Address | City/State/Zipcode | Phone Number | | Organization | | | | + + + + + | [facility] | [address] | [place] [address] | [phone] | + + + + + POC [...] | | | POC | performed at [facility];[address] | | LABORATORY | | | | [address];[place] | | | | | | [address] | | | | + + + + + + + + | Specimen | + + | | + + + + + + + | Performing | Address | City/State/Zipcode | Phone Number | | Organization | | | | + + + + + | [facility] | [address] | [place] [address] | [phone] | + + + + + POC Glucose (08/28/2019 12:11 PM PST) + + + + + + | Component | Value | Ref Range | Performed | Pathologist | | | | | At | Signature | + + + + + + | Glucose, | 101 (H)Comment: Testing | 65 - 99 mg/dL | [facility] | | | POC | performed at [facility];[address] | | LABORATORY | | | | [address];[place] | | | | | | [address] | | | | + + + + + + + + | Specimen | + + | | + + + + + + + | Performing | Address | City/State/Zipcode | Phone Number | | Organization | | | | + + + + + | [facility] | [address] | [place] [address] | [phone] | + + + + + POC Glucose (08/28/2019 8:48 AM PST) + + + + + + | Component | Value | Ref Range | Performed | Pathologist | | | | | At | Signature | + + + + + + | Glucose, | 98Comment: Testing | 65 - 99 mg/dL | [facility] | | | POC | performed at [facility];[address] | | LABORATORY | | | | [address];[place] | | | | | | [address] | | | | + + + + + + + + | Specimen | + + | | + + + + + + + | Performing | Address | City/State/Zipcode | Phone Number | | Organization | | | | + + + + + | [facility] | [address] | [place] [address] | [phone] | + + + + + Phosphorus (08/28/2019 4:18 AM PST) + + + + + + | Component | Value | Ref Range | Performed | Pathologist | | | | | At | Signature | + + + + + + | Phosphorus | 2.1 (L)Comment: Testing | 2.3 - 4.8 mg/dL | [facility] | | | | performed at [facility], [address] | | LABORATORY | | | | [address], | | | | | | [place] [address] | | | | + + + + + + + + | Specimen | + + | Blood | + + + + + + + | Performing | Address | City/State/Zipcode | Phone Number | | Organization | | | | + + + + + | [facility] | [address] | [place] [address] | [phone] | + + + + + Magnesium (08/28/2019 4:18 AM PST) + + + + + + | Component | Value | Ref Range | Performed | Pathologist | | | | | At | Signature | + + + + + + | Magnesium | 2.0Comment: Testing | 1.7 - 2.4 mg/dL | [facility] | | | | performed at [facility], [address] | | LABORATORY | | | | [address], | | | | | | [place] [address] | | | | + + + + + + + + | Specimen | + + | Blood | + + + + + + + | Performing | Address | City/State/Zipcode | Phone Number | | Organization | | | | + + + + + | [facility] | [address] | [place] [address] | [phone] | + + + + + Basic [...] | | | | | | [facility] traceable | | | | | | equation.Testing | | | | | | performed at [facility], [address] | | | | | | [facility], | | | | | | [place] [address] | | | | + + + + + + + + | Specimen | + + | Blood | + + + + + + + | Performing | Address | City/State/Zipcode | Phone Number | | Organization | | | | + + + + + | [facility] | [address] | [place] [address] | [phone] | + + + + + CBC [...] 0.03Comment: Testing | 0.00 - 0.10 | [facility] | | | Absolute | performed at [facility], [address] | K/u[address] | LABORATORY | | | | [address], | | | | | | [place] [address] | | | | + + + + + + + + | Specimen | + + | Blood | + + + + + + + | Performing | Address | City/State/Zipcode | Phone Number | | Organization | | | | + + + + + | [facility] | [address] | [place] [address] | [phone] | + + + + + POC [...] | | | POC | performed at [facility];[address] | | LABORATORY | | | | [address];[place], [place] | | | | | | [address] | | | | + + + + + + + + | Specimen | + + | | + + + + + + + | Performing | Address | City/State/Zipcode | Phone Number | | Organization | | | | + + + + + | [facility] | [address] | [place] [address] | [phone] | + + + + + POC Glucose (08/27/2019 12:05 PM PST) + + + + + + | Component | Value | Ref Range | Performed | Pathologist | | | | | At | Signature | + + + + + + | Glucose, | 99Comment: Testing | 65 - 99 mg/dL | [facility] | | | POC | performed at [facility];[address] | | LABORATORY | | | | [address];[place] | | | | | | [address] | | | | + + + + + + + + | Specimen | + + | | + + + + + + + | Performing | Address | City/State/Zipcode | Phone Number | | Organization | | | | + + + + + | [facility] | [address] | [place] [address] | [phone] | + + + + + POC Glucose (08/27/2019 8:01 AM PST) + + + + + + | Component | Value | Ref Range | Performed | Pathologist | | | | | At | Signature | + + + + + + | Glucose, | 85Comment: Testing | 65 - 99 mg/dL | [facility] | | | POC | performed at [facility];[address] | | LABORATORY | | | | [address];[place] | | | | | | [address] | | | | + + + + + + + + | Specimen | + + | | + + + + + + + | Performing | Address | City/State/Zipcode | Phone Number | | Organization | | | | + + + + + | [facility] | [address] | [place] [address] | [phone] | + + + + + Phosphorus [...] | | | | | [place] [address] | | | | + + + + + + + + | Specimen | + + | Blood | + + + + + + + | Performing | Address | City/State/Zipcode | Phone Number | | Organization | | | | + + + + + | [facility] | [address] | [place] [address] | [phone] | + + + + + Magnesium [...] | | | | | [place] [address] | | | | + + + + + + + + | Specimen | + + | Blood | + + + + + + + | Performing | Address | City/State/Zipcode | Phone Number | | Organization | | | | + + + + + | [facility] | [address] [facility] | [place] [address] | [phone] | + + + + + Basic [...] | | | | | performed at [facility], [address] | | | | | | [facility], | | | | | | [place] [address] | | | | + + + + + + + + | Specimen | + + | Blood | + + + + + + + | Performing | Address | City/State/Zipcode | Phone Number | | Organization | | | | + + + + + | [facility] | [address] | [place] [address] | [phone] | + + + + + CBC [...] at | | | | | | [facility], [address] [facility] | | | | | | [place] | | | | | | [address] | | | | + + + + + + + + | Specimen | + + | Blood | + + + + + + + | Performing | Address | City/State/Zipcode | Phone Number | | Organization | | | | + + + + + | [facility] | [address] | [place] [address] | [phone] | + + + + + POC Glucose (08/27/2019 4:06 AM PST) + + + + + + | Component | Value | Ref Range | Performed | Pathologist | | | | | At | Signature | + + + + + + | Glucose, | 81Comment: Testing | 65 - 99 mg/dL | [facility] | | | POC | performed at [facility];[address] | | LABORATORY | | | | [address];[place] | | | | | | [address] | | | | + + + + + + + + | Specimen | + + | | + + + + + + + | Performing | Address | City/State/Zipcode | Phone Number | | Organization | | | | + + + + + | [facility] | [address] | [place] [address] | [phone] | + + + + + POC [...] | | | POC | performed at [facility];[address] | | LABORATORY | | | | [address];[place] | | | | | | [address] | | | | + + + + + + + + | Specimen | + + | | + + + + + + + | Performing | Address | City/State/Zipcode | Phone Number | | Organization | | | | + + + + + | [facility] | [address] | [place] [address] | [phone] | + + + + + Surgical [...] of the | | | rectum (see [id number]). As part of [facility] Quality | | | Improvement Program, this [...] surfaceis barker-yellow and lobulated. | | | Prevention Coordinator sections are submitted in cassette (A1). B. [...] is barker-yellow and | | | lobulated. Prevention Coordinator sections are submitted incassette (B1). | | [...] component was performed | | | by [facility] [address] (Medical | | | Director: Yenny Young MD; CLIA# [id number]). Professional | | | interpretation was performed [facility] | | | [address] [address] (Medical | | | Director: Kenyon Delacruz M.D.; CLIA#: [id number]). REASON FOR | | | ADDENDUM:Results of [...] | | | preparation) was performed at [facility]. | | | Interpretation was performed at [facility]. | | | Immunohistochemical studies and/or special stains were performed on | | | this case with the appropriate controls, which stain appropriately. | | | These tests were developed and their performance characteristics | | | determined by [facility] and/or [facility]. These tests | | | may have not been cleared or approved by the U.S. Food and Drug | | | Administration. The FDA has determined that suchclearance or | | | approval is not necessary. [facility] and [facility] are certified | | | under the [...] | | LABORATORY | | | | [address];[place] [address] | | | | + + + + + + + + | Specimen | + + | Blood | + + + + + + + | Performing | Address | City/State/Zipcode | Phone Number | | Organization | | | | + + + + + | [facility] | [address] | [place] [address] | [phone] | + + + + + Protime INR (08/26/2019 4:25 AM PST) + + + + + + | Component | Value | Ref Range | Performed | Pathologist | | | | | At | Signature | + + + + + + | INR | 1.1Comment: REFERENCE | | [facility] | | | | RANGE:0.9 - 1.2 [...] | | | | | performed at [facility];[address] | | | | | [address];[place] | | | | | | [address] | | | | + + + + + + + + | Specimen | + + | Blood | + + + + + + + | Performing | Address | City/State/Zipcode | Phone Number | | Organization | | | | + + + + + | [facility] | [address] | [place] [address] | [phone] | + + + + + Ferritin (08/26/2019 4:25 AM PST) + + + + + + | Component | Value | Ref Range | Performed | Pathologist | | | | | At | Signature | + + + + + + | Ferritin | 144Comment: Testing | 11 - 450 ng/mL | [facility] | | | | performed at [facility], [address] | | LABORATORY | | | | [address], | | | | | | [place] [address] | | | | + + + + + + + + | Specimen | + + | Blood | + + + + + + + | Performing | Address | City/State/Zipcode | Phone Number | | Organization | | | | + + + + + | [facility] | [address] | [place] [address] | [phone] | + + + + + Iron [...] | | | | | [place] [address] | | | | + + + + + + + + | Specimen | + + | Blood | + + + + + + + | Performing | Address | City/State/Zipcode | Phone Number | | Organization | | | | + + + + + | [facility] | [address] | [place] [address] | [phone] | + + + + + CBC [...] [facility] | | | | performed at [facility], [address] | | LABORATORY | | | | [address], | | | | | | [place] [address] | | | | + + + + + + + + | Specimen | + + | Blood | + + + + + + + | Performing | Address | City/State/Zipcode | Phone Number | | Organization | | | | + + + + + | [facility] | [address] | [place] [address] | [phone] | + + + + + Basic [...] | >60Comment: GFR <60: | >60 | [facility] | | | GFR | CHRONIC [...] | | | | | performed at [facility], [address] | | | | | | [facility], | | | | | | [place] [address] | | | | + + + + + + + + | Specimen | + + | Blood | + + + + + + + | Performing | Address | City/State/Zipcode | Phone Number | | Organization | | | | + + + + + | [facility] | [address] | [place] [address] | [phone] | + + + + + Urinalysis [...] - 1.030 | [facility] | | | [place], | | | LABORATORY | | | [...] | | LABORATORY | | | | [facility];[address] | | [address];[place] [address] | | | | + + + [...] | + + + + + | [facility] | [address] | [place] [address] | [phone] | + + + + + Comprehensive [...] | >60Comment: GFR <60: | >60 | [facility] | | | GFR | CHRONIC [...] | | | | | performed at [facility] | | | | | | [facility];[place], [place] | | | | | | [address] | | | | + + + + + + + + | Specimen | + + | Blood | + + + + + + + | Performing | Address | City/State/Zipcode | Phone Number | | Organization | | | | + + + + + | [facility] | [address] | [place] [address] | [phone] | + + + + + CBC [...] | | | Absolute | performed at [facility];[address] | [address] | LABORATORY | | | | [address];[place] | | | | | | [address] | | | | + + + + + + + + | Specimen | + + | Blood | + + + + + + + | Performing | Address | City/State/Zipcode | Phone Number | | Organization | | | | + + + + + | [facility] | [address] | [place] [address] | [phone] | + + + + + documented [...] | | | | | | longer, ftdpkh-otq-wthut use of | | | | | [...]
--- OUTSIDE RECORDS SUMMARY | ~2019-09-24 | XMS | Encounter Summary ---
Demographics + + + | Address | [address] | | | [place] [address] | + + + | Home Phone | | + + + | Preferred Language | Unknown | + + + | Marital Status | | + + + | Worship Affiliation | Unknown | + + + | Race | Unknown | + + + | Ethnic Group | Unknown | + + + Author + + + | Author | [facility] | | | and [place] | + + + | Organization | [facility] | | | and [...] Team Providers + +------+ + | Care Gis Geographer Name | Role | Phone | + +------+ + | Lizette Martinez | PCP | | + +------+ + Encounter Details +--------+ + + + + | Date | Type | Department | Care Team | Description | +--------+ + + + + | 09/14/ | Abstract | [facility] | Miley Wirght, | | | 2018 | | [facility] | [facility] | | | | | [facility] [address] | | | | | | [address] | | | | | | [place] [address] | | | | | | [phone] | | | +--------+ + + + [...]
--- OUTSIDE RECORDS SUMMARY | ~2019-09-24 | XMS | Encounter Summary ---
Demographics + + + | Address | [address] | | | [place] [address] | + + + | Home Phone | | + + + | Preferred Language | Unknown | + + + | Marital Status | | + + + | Taoist Affiliation | Unknown | + + + | Race | Unknown | + + + | Ethnic Group | Unknown | + + + Author + + + | Author | [facility] | | | and [place] | + + + | Organization | [facility] | | [...] Team Providers + +------+ + | Care Vortex Operator Name | Role | Phone | [...] [place] | | | | | [phone] | [place] [address] | | +--------+ + + + + [...]
--- OUTSIDE RECORDS SUMMARY | ~2019-09-24 | XMS | Encounter Summary ---
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
--- OUTSIDE RECORDS SUMMARY | ~2019-09-24 | XMS | Encounter Summary ---
Demographics + + + | Address | [address] | | | [place] [address] | + + + | Home Phone | | + + + | Preferred Language | Unknown | + + + | Marital Status | | + + + | Sabianist Affiliation | Unknown | + + + [...] Team Providers + +------+ + | Care Ground Mixer Name | Role | Phone | + +------+ + | Lizette Martinez | PCP | | + +------+ + Encounter Details +--------+ + + + + | Date | Type | Department | Care Team | Description | +--------+ + + + + | 09/14/ | Abstract | [facility] | Miley Wright, | | | 2018 | | [facility] | MECHANICAL ASSEMBLY TECHNICIAN | | | | | ONCOLOGY CLINIC [address] | | | | | | [address] | | | | | | [place] [address] | | | | | | [phone] | | | +--------+ + + + [...]
--- OUTSIDE RECORDS SUMMARY | ~2019-09-24 | XMS | Encounter Summary ---
Demographics + + + | Address | [address] | | | [place] [address] | + + + | Home Phone | | + + + | Preferred Language | Unknown | + + + | Marital Status | | + + + | Evangelical Affiliation | Unknown | + + + | Race | Unknown | + + + | Ethnic Group | Unknown | + + + Author + + + | Author | [facility] | | | and [place] | + + + | Organization | [facility] | | | [...] Team Providers + +------+ + | Care Strategy Manager Name | Role | Phone | [...] + + | 09/05/ | Navigation | [facility] | Alva See | | | 2019 | Services | HEMATOLOGY AND | JAIME Persaud | | | | | ONCOLOGY [address] | | | | | | [address] | | | | | | [place] | | | | | | [address] | | | | | | [phone] | | | +--------+ + + + [...] Alva Cross, RN - 09/05/2019 10:11 AM [facility] has been asked by Cristian Adam to refer pt to local oncologist near his home in [place], [place]. Referral entered for Dr Paras crowell, but referral must come from pcp due to insurance requirement. I placed call to pc p's office (Lizette Martinez) and left voicemail for patient floor care specialist, Nanda self need for urgent referral [...]
--- OUTSIDE RECORDS SUMMARY | ~2019-09-24 | XMS | Encounter Summary ---
Demographics + + + | Address | [address] | | | [place] [address] | + + + | Home Phone | | + + + | Preferred Language | Unknown | + + + | Marital Status | | + + + | Episcopalian Affiliation | Unknown | + + + [...] Team Providers + +------+ + | Care Biology Intern Name | Role | Phone | + +------+ + | Lizette Martinez | PCP | | + +------+ + Encounter Details +--------+ + + + + | Date | Type | Department | Care Team | Description | +--------+ + + + + | 09/05/ | Documentati | [facility] | Evelyne Gonzalez, | | | 2019 | on | GENERAL SURGERY [address] | Roadability Machine Operator | | | | | [address] | | | | | | [place] | | | | | | [address] | | | | | | [phone] | | | +--------+ + + + [...] of this encounter Progress Notes Evelyne Gonzalez, Roadability Machine Operator - 09/05/2019 10:45 AM PSTPertinent medical records and demographics sent to patient's PCP and Dr. Paras Oliva per ONN request via fax. Fax confirmation received. Electronically signed by Evelyne Gonzalez Roadability Machine Operator at 09/05 10:46 AM PSTdocumented in this encounter Plan of Treatment Not on filedocumented as of this encounter Visit Diagnoses Not on filedocumented in this encounter"
--- OUTSIDE RECORDS SUMMARY | ~2019-09-24 | XMS | Encounter Summary ---
Demographics + + + | Address | [address] | | | [place] [address] | + + + | Home Phone [...] Team Providers + +------+ + | Care Vocational Rehabilitation Supervisor Name | Role | Phone | [...] Trung AYALA | | | | | [phone] | [place] [address] | | +--------+ + + + + [...]
--- OUTSIDE RECORDS SUMMARY | ~2019-09-24 | XMS | Clinical Summary ---
Demographics + + + | Address | [address] | | | [place] [address] | + + + | Home Phone | | + + + | Preferred Language | Unknown | + + + | Marital Status | Unknown | + + + | Catholic Affiliation | Unknown | + + + | Race | Unknown | + + + | Ethnic Group | Unknown | + + + Author + + + | Author | [facility] (Historical as of | | | 05-20-19) | + + + | Organization | [facility] (Historical as of | | | 05-20-19) [...] Team Providers + +------+ + | Care Didactic Instructor Name | Role | Phone | [...] | | + +--------+ +------+-------+ + | /[facility] | YELLOW | [id number] | | | | | PLANS | [place] | | | | | + +--------+ +------+-------+ + | MEDICARE | MEDICA | [id number] | | | [address] | | | RE | | | | [place] [phone] | | | IP-OP | | | [...] | Self | [birth year] | Home: | [address] | | | al/Fam | | 1941 | [phone] [place] [address] | | | [place] | | | [phone] | | + +--------+ +--------+ + +
--- OUTSIDE RECORDS SUMMARY | ~2019-09-24 | XMS | Encounter Summary ---
Demographics + + + | Address | [address] | | | [place] [address] | + + + | Home Phone [...] + +------+ + | Care Real Estate Agency Licensee Name | Role | Phone | + [...] | / Cardiology | done sah | [address] | GUILLOTINE OPERATOR [address] | | | | | Procedures | SARAH BLACKMON | LISETH COLVIN | | | | | OFFICE VISIT | [place] | [address] | | | | | REGULAR | [place] [address] | [facility] | | | | | | Phone: | [address] Phone: | | | | | | [phone] | [phone] | | | | | | Fax: | Fax: | | | | | | [phone] | [phone] | +--------+--------+ + + + + Encounter Details +--------+---------+ + + + | Date | Type | Department | Care Team | Description | +--------+---------+ + + + | 07/10/ | Office | [facility] | Naina Judd | Essential | | 2019 | Visit | CARDIOLOGY [place] | [address] | hypertension | | | | [address] | [place] | (Primary Dx); Chest | | | | [address] | [place] [address] | pressure; Mixed | | | | [place], [place] | [phone] | hyperlipidemia; | | | | [address] | | Tobacco abuse | | | | [phone] | | | +--------+---------+ + + + [...] and his EKG showing an old inferior CT. He previously had a normal echo performed at [facility] Dr. Barahona ordered him a stress [...] use. Exercises with and tolerates. Lives in [place] [facility] Medications Prior to Visit Medication Sig [...] with PAC's. low voltage QRS 71 bpm, SD 122 ms, Q RS 74 ms, QTC 417 ms, tracing personally reviewed by me EK05/11/2019:Normal sinus rhythm, rate 71, SD 118 ms, QRS 68 ms, QTC 399, borderline carolynn rt SD interval, LAE, cannot exclude old inferior CT, age undetermined, low voltage QRS , tr [...] pneumonia vaccines, as also increase risk of CT I made no changes to cardiac medications [...] past surgical history. Problem list. Erika WALKER [facility] Cardiology 07/10/2019 docume nted in [...]
--- OUTSIDE RECORDS SUMMARY | ~2019-09-24 | XMS | Encounter Summary ---
Demographics + + + | Address | [address] | | | [place] [address] | + + + | Home Phone [...] Team Providers + +------+ + | Care Auto Transmission Technician Name | Role | Phone | + +------+ + | Lizette Martinez | PCP | | + +------+ + Encounter Details +--------+ + + + + | Date | Type | Department | Care Team | Description | +--------+ + + + + | 08/26/ | Hospital | [facility] | Phong Tyson, | | | 2018 | Encounter | MEDICAL CENTER POC | [address] | | | | | ULTR[address] | [address] | | | | | [address] | [place] [address] | | | | | [place], [place] | [phone] | | | | | [address] | | | | | | [phone] | | | +--------+ + + + [...]
--- OUTSIDE RECORDS SUMMARY | ~2019-09-24 | XMS | Clinical Summary ---
Demographics + + + | Address | [address] | | | [place] [address] | + + + | Home Phone [...] Team Providers + +------+ + | Care Greenhouse Manager Name | Role | Phone | [...] right | | lung.1. Presentation to the [facility] [place] [facility] Emergency Room | | on August 23, 2019 with a 10 week history of abdominal | | distension and pain, and bloody diarrhea.2. CT scan | | abdomen/pelvis on August 23, 2019 at [facility] [place] [facility] | | demonstrated significant nodularity in [...] 10 cm long by proctoscopy. 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 | | Last Assessment & Plan: Kris Delgado is referred by Sree | | Yifan Adam [address] [facility] [address] [place] [address] for | | evaluation and management of confirmed regionally metastatic | | colon cancer to the omentum, with unconfirmed metastatic disease | | to the right lung.I met with Crystal and his daughter, Gissel, at | | the [facility] on | | 09/14/2019.Review of systems is notable for rectal pain.Clinical | | exam is notable for decreased breath sounds and dullness at the | | right base.Laboratory exam is notable for elevated CEA.Images | | from his [facility] [place] [facility] evaluations were | | reviewed.Assessment: confirmed regionally metastatic colon cancer | | to the omentum, with unconfirmed metastatic disease to the right | | lung.Plan; This was an extended, high-value encounter were we | | reviewed Mr. Delgado's [id number], his goals of therapy and | | [...] | | proceed with treatment directly at [facility] in | | [place], [place]. He will be referred to Dr. Emeterio [...] automatically from request for surgery | | [id number] | + + + + + | Rectal obstruction | 08/25/2019 | + + + + + | Overview: Added automatically from request for surgery | | [id number] | + + + + + | [...] | | | 2018 | | | DAIRY BACTERIOLOGIST | | +--------+ + + + + [...] | | 2018 | on | | Office Machines Sales Representative | | +--------+ + + + + [...] J?MRN: | | | | | | [id number] | | | [id number] | | | riteri | | | [...] | | | St. | | | Aladdin | | | y | | | [...] | | | St. | | | Aladdin | | | y H. | | [...] | | | St. | | | Aladdin | | | y H. | | [...] | | | 1-103a | | | [id number] | | | 41 | | | [...] | | | Absolute | performed at [facility], [address] | [address] | LABORATORY | | | | [address], | | | | | | [place] [address] | | | | + + + + + + + + | Specimen | + + | Blood | + + + + + + + | Performing | Address | City/State/Zipcode | Phone Number | | Organization | | | | + + + + + | [facility] | [address] | [place] [address] | [phone] | + + + + + Comprehensive Metabolic Panel (08/30/2019 4:29 AM [facility])Only the most recent of 2 results [...] | | | | | performed at [facility], [address] | | | | | | [address], | | | | | | [place] [address] | | | | + + + + + + + + | Specimen | + + | Blood | + + + + + + + | Performing | Address | City/State/Zipcode | Phone Number | | Organization | | | | + + + + + | [facility] | [address] | [place] [address] | [phone] | + + + + + Phosphorus [...] Testing | 2.3 - 4.8 mg/dL | [facility] | | | | performed at [facility];[address] | | LABORATORY | | | | [address];[place], [place] | | | | | | [address] | | | | + + + + + + + + | Specimen | + + | Blood | + + + + + + + | Performing | Address | City/State/Zipcode | Phone Number | | Organization | | | | + + + + + | [facility] | [address] | [place] [address] | [phone] | + + + + + Magnesium [...] Testing | 1.7 - 2.4 mg/dL | [facility] | | | | performed at [facility];[address] | | LABORATORY | | | | [address];[place] | | | | | | [address] | | | | + + + + + + + + | Specimen | + + | Blood | + + + + + + + | Performing | Address | City/State/Zipcode | Phone Number | | Organization | | | | + + + + + | [facility] | [address] | [place] [address] | [phone] | + + + + + Basic [...] | | | | | | MDRD IDFL traceable | | | | | | equation.Testing | | | | | | performed at [facility];[address] | | | | | | [address] [facility];[place], [place] | | | | | | [address] | | | | + + + + + + + + | Specimen | + + | Blood | + + + + + + + | Performing | Address | City/State/Zipcode | Phone Number | | Organization | | | | + + + + + | [facility] | [address] | [place] [address] | [phone] | + + + + + POC [...] Testing | 65 - 99 mg/dL | [facility] | | | POC | performed at [facility];[address] | | LABORATORY | | | | [address];[place] | | | | | | [address] | | | | + + + + + + + + | Specimen | + + | | + + + + + + + | Performing | Address | City/State/Zipcode | Phone Number | | Organization | | | | + + + + + | [facility] | [address] | [place] [address] | [phone] | + + + + + Surgical [...] of the | | | rectum (see [id number]). As part of [facility] Quality | | | Improvement Program, this [...] surfaceis barker-yellow and lobulated. | | | Gas System Operator sections are submitted in cassette (A1). B. [...] is barker-yellow and | | | lobulated. Gas System Operator sections are submitted incassette (B1). | | [...] component was performed | | | by [facility] [address] (Medical | | | Director: Yenny Young MD; CLIA# [id number]). Professional | | | interpretation [facility] | | | [address] [address] (Medical | | | Director: Kenyon Delacruz M.D.; CLIA#: [id number]). REASON FOR | | | ADDENDUM:Results of [...] | | | preparation) was performed at [facility]. | | | Interpretation was performed at [facility]. | | | Immunohistochemical studies and/or special stains were performed on | | | this case with the appropriate controls, which stain appropriately. | | | These tests were developed and their performance characteristics | | | determined by [facility] and/or [facility]. These tests | | | may have not been cleared or approved by the U.S. Food and Drug | | | Administration. The FDA has determined that suchclearance or | | | approval is not necessary. [facility] and [facility] are certified | | | under the [...] | | [facility] | | | | [facility];[address] | | LABORATORY | | | | [address];[place] [address] | | | | + + + + + + + + | Specimen | + + | Blood | + + + + + + + | Performing | Address | City/State/Zipcode | Phone Number | | Organization | | | | + + + + + | [facility] | [address] | [place] [address] | [phone] | + + + + + Iron [...] | | | | | [place] [address] | | | | + + + + + + + + | Specimen | + + | Blood | + + + + + + + | Performing | Address | City/State/Zipcode | Phone Number | | Organization | | | | + + + + + | [facility] | [address] | [place] [address] | [phone] | + + + + + Protime [...] | | | | | performed at [facility];[address] | | | | | | [address];[place], [place] | | | | | | [address] | | | | + + + + + + + + | Specimen | + + | Blood | + + + + + + + | Performing | Address | City/State/Zipcode | Phone Number | | Organization | | | | + + + + + | [facility] | [address] | [place] [address] | [phone] | + + + + + CBC [...] [facility] | | | | performed at [facility], [address] | | LABORATORY | | | | [address], | | | | | | [place] [address] | | | | + + + + + + + + | Specimen | + + | Blood | + + + + + + + | Performing | Address | City/State/Zipcode | Phone Number | | Organization | | | | + + + + + | [facility] | [address] | [place] [address] | [phone] | + + + + + Ferritin [...] | | | | | [place] [address] | | | | + + + + + + + + | Specimen | + + | Blood | + + + + + + + | Performing | Address | City/State/Zipcode | Phone Number | | Organization | | | | + + + + + | [facility] | [address] | [place] [address] | [phone] | + + + + + Urinalysis [...] - 1.030 | [facility] | | | [place], | | | LABORATORY | | | [...] [address] | | | | | | [address];[place] [address] | | | | + + + [...] | + + + + + | [facility] | [address] | [place] [address] | [phone] | + + + + + from [...] +--------+ +---------+--------+ | MEDICARE | MEDICA | [id number] | 04/03/20 | [phone] | | Medica | | | RE | | 14-Pre | 5 | | re | | | PART A | | sent | | | | | | AND B | | | | | | + +--------+ +--------+ +---------+--------+ | [employer] | [employer] | [id number] | | | | Indemn | | SERVICE | [place]LLOW | | 019-Pr | | | ity | | | [place] | | esent | | | | + +--------+ +--------+ +---------+--------+ | [employer] | [employer] | [id number] | 10/04/19 | | | Indemn | | SERVICE | YELLOW | | 19-Pre | | | ity | | | [place] | | sent | | | | + +--------+ +--------+ +---------+--------+ | MEDICARE | MEDICA | [id number] | 04/03/20 | [phone] | | Medica [...] Person | Self | [birth year] | | [address] | | | al/Fam | | 1941 | [phone] | [place] [address] | | | [place] | | | 9 (Home) | | + +--------+ +--------+ + + | Kris Delgado J | Person | Self | [birth year] | | [address] | | | al/Fam | | 1941 | [phone] | [place] [address] | | | [place] | | | 9 (Home) | | + +--------+ +--------+ + + Advance Directives + + + + + | Type | Date Recorded | Patient | Explanation | | | | Gas System Operator | | + + + + + | Power of | | | | | Caregiver Services Home | | | | + + + [...]
--- OUTSIDE RECORDS SUMMARY | ~2019-09-24 | XMS | Encounter Summary ---
Demographics + + + | Address | [address] | | | [place] [address] | + + + | Home Phone [...] Team Providers + +------+ + | Care Histopathology Technician Name | Role | Phone | [...] [place] | | | | | | [address] | (Fax) | | | | | [phone] | | | +--------+ + + + [...]
[~2019-09-24 16:12] MED LIST changes: +ANTI-FUNGAL POW71 GM TOP; +ASPIRIN325 MG PO; +BACTRIM DS TAB1 EACH PO; +MELATONIN3 MG PO; +MULTI VITAMIN1 EACH PO; +OXYCODONE HCL5 MG PO; +TYLENOL325 M1 PO; +ZOFRAN4 MG PO
--- OUTSIDE RECORDS SUMMARY | 2019-09-24 16:14 | XMS ---
PreManage Notification: ARLENE ROJAS [employer] Events No recent Security Events currently on file CRITERIA MET - [facility] - [facility] - 2 Visits in 30 Days CARE PROVIDERS Name Unknown Fpc Facility Current PHONE: [phone] Name Unknown Clinic/Center 09/04/2019-Current PHONE: [phone] Adrian has no Care Guidelines for this patient. EKayla VISIT COUNT (12 MO.) [address] TOTAL 5 NOTE: Visits indicate total known visits. 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
== END 2019-09-24 20:14 | disposition home or self-care (01) ==
LOC: ED 16:12
DX: R10.9 Unspecified abdominal pain (principal); I10 Essential (primary) hypertension; E78.5 Hyperlipidemia, unspecified; Z87.891 Personal history of nicotine dependence; Z88.0 Allergy status to penicillin; Z88.8 Allergy status to other drugs, medicaments and biological substances; Z79.899 Other long term (current) drug therapy
CPT/HCPCS: 74177; 80053; 83605; 85025; 96361; 99284-25; J1170; J1644; J2405; J2704; J7121; Q9967

== ENCOUNTER 2019-10-12 19:13 | Observation (INO) | payer MEDICARE, OTHER ==
[~2019-10-12] VITALS: Ht 170.2 cm; Wt 65.8 kg
--- OUTSIDE RECORDS SUMMARY | ~2019-10-12 | XMS | Encounter Summary ---
Demographics + + + | Address | [address] | | | [place] [address] | + + + | Home Phone | | + + + | Preferred Language | Unknown | + + + | Marital Status | | + + + | Anabaptism Affiliation | Unknown | + + + | Race | Unknown | + + + | Ethnic Group | Unknown | + + + Author + + + | Author | [facility] | | | and [place] | + + + | Organization | [facility] | | | and [...] Team Providers + +------+ + | Care Exit Booth Agent Name | Role | Phone | + +------+ + | Lizette Martinez | PCP | | + +------+ + Reason for Referral Evaluate & Treat (Routine) +--------+ + + + + + | Status | Reason | Specialty | Diagnoses / | Referred By | Referred To | | | | | Procedures | Contact | Contact | +--------+ + + + + + | Closed | Specialty | Surgery - | Diagnoses | | Tahir, | | | Services | Surgical | | Pj, | Emeteiro Godfrey, | | | Required | Critical Care | Adenocarcino | Paras Leach, | [address] | | | | | ma of | MD [address] | | | | | rectosigmoid | [address] | [place], [place] | | | | | junction | [place], | [address] | | | | | ([facility]) | [place] [address] | Phone: | | | | | | Phone: | [phone] | | | | | | [phone] | Fax: | | | | | | Fax: | [phone] | | | | | | [phone] | | +--------+ + + + + + Reason for Visit + + + | Reason | Comments | + + + | Follow-up | | + + + Evaluate & Treat (Urgent) + + + + + + + | Status | Reason | Specialty | Diagnoses / | Referred By | Referred To | | | | | Procedures | Contact | Contact | + + + + + + + | Authorized | Specialty | Medical | Diagnoses | Jair, | | | | Services | Oncology / | | Sree, | Pj, | | | Required | Oncology | Adenocarcino | [employer] [address] | Paras Leach MD | | | | | ma of | [address] | [address] | | | | | rect[address] | [address] [place] | | | | | junction | [place], [place] | [place], [place] | | | | | ([facility]) | [address] | [address] Phone: | | | | | | Phone: | [phone] | | | | | | [phone] | Fax: | | | | | | Fax: | [phone] | | | | | | [phone] | | + + + + + + + Encounter Details +--------+ + + + + | Date | Type | Department | Care Team | Description | +--------+ + + + + | 09/14/ | Hospital | [facility] | Pj, | Adenocarcinoma of | | 2019 | Encounter | [facility] | Paras Leach MD [address] | [address]oid | | | | [facility] [address] [place] | junction (HCC) | | | | [address] [place] | [place] [address] | | | | | [place] [address] | [phone] | | | | | [phone] | | | +--------+ + + + [...] + + documented as of this encounter Last Filed Vital Signs + + + + + | Vital Sign | Reading | Time Taken | Comments | + + + + + | Blood Pressure | 108/59 | 09/14/2019 2:42 PM | | | | | PST | | + + + + + | Pulse | 56 | 09/14/2019 2:42 PM | | | | | PST | | + + + + + | Temperature | 36.7 C (98.1 F) | 09/14/2019 2:42 PM | | | | | PST | | + + + + + | Respiratory Rate | 14 | 09/14/2019 2:42 PM | | | | | PST | | + + + + + | Oxygen Saturation | 95% | 09/14/2019 2:42 PM | | | | | PST | | + + + + + | Inhaled Oxygen | - | - | | | Concentration | | | | + + + + + | Weight | 71.6 kg (157 lb 13.6 | 09/14/2019 2:42 PM | | | | oz) | PST | | + + + + + | Height | 161.5 cm (5' 3.58") | 09/14/2019 2:42 PM | | | | | PST | | + + + + + | Body Mass Index | 27.45 | 09/14/2019 2:42 PM | | | | | PST | | + + + + + documented in this encounter Functional Status + + + [...] + + documented as of this encounter Medications at Time of Discharge + + + +---------+ + + | Medication | Sig | Dispensed | Refills | Start | End Date | | | | | | Date | | + + + +---------+ + + | aspirin 325 mg | Take 325 mg by mouth | | 0 | 05/11/20 | | | tablet | daily with | | | 19 | | | | breakfast. | | | | | + + + +---------+ + + | atorvaSTATin | Take 10 mg by mouth | | 0 | 05/11/20 | | | (LIPITOR) 10 mg | nightly. | | | 19 | | | tablet | | | | | | + + + +---------+ + + | ciprofloxacin | Take 500 mg by mouth | | 0 | | | | (CIPRO) 500 mg | 2 times daily. | | | | | | tablet | | | | | | + + + +---------+ + + | levoFLOXacin | Take 500 mg by mouth | | 0 | | | | (LEVAQUIN) 500 mg | Daily. | | | | | | tablet | | | | | | + + + +---------+ + + | lisinopril | Take 10 mg by mouth | | 0 | | | | (PRINIVIL, ZESTRIL) | Daily. | | | | | | 10 mg tablet | | | | | | + + + +---------+ + + | loperamide | Take 2 mg by mouth 4 | | 0 | | | | (IMODIUM) 2 mg | times daily as | | | | | | capsule | needed for Diarrhea. | | | | | + + + +---------+ + + | metroNIDAZOLE | Take 500 mg by mouth | | 0 | | | | (FLAGYL) 500 MG | 3 times daily. | | | | | | tablet | | | | | | + + + +---------+ + + | Multiple | Take 1 tablet by | | 0 | | | | Vitamins-Minerals | mouth Daily. | | | | | | (MULTIVITAMIN ADULT | | | | | | | PO) | | | | | | + + + +---------+ + + | omeprazole | Take 20 mg by mouth | | 0 | | | | (PRILOSEC) 20 mg | every morning | | | | | | capsule | (before breakfast). | | | | | + + + +---------+ + + | oxyCODONE | Take 1 tablet by | 100 | 0 | 09/14/20 | | | (ROXICODONE) 5 mg | mouth every 4 hours | tablet | | 19 | | | tablet | as needed for Pain. | | | | | + + + +---------+ + + | polyethylene | Take 1 diluted | 30 | 0 | 08/30/20 | | | glycol (MIRALAX) | packet by mouth | packet | | 19 | | | packet | Daily as needed for | | | | | | | Constipation. | | | | | + + + +---------+ + + documented as of this encounter Plan of Treatment +--------+---------+ + + + | Date | Type | Specialty | Care Team | Description | +--------+---------+ + + + | 10/16/ | Office | Wound Care | Jair, | | | 2019 | Visit | | [address] | | | | | | [address] | | | | | | [place] [address] | | | | | | [phone] | | | | | | | | +--------+---------+ + + + + + +--------+ + + | Name | Type | Priori | Associated Diagnoses | Order Schedule | | | | ty | | | + + +--------+ + + | General Surgery, | Outpatient | Routin | Adenocarcinoma of | Ordered: 09/14/2019 | | External - AMB | Referral | e | rectosigmoid | | | Referral | | | junction (HCC) | | + + +--------+ + + documented as of this encounter Procedures + +--------+ + + + | Procedure Name | Priori | Date/Time | Associated Diagnosis | Comments | | | ty | | | | + +--------+ + + + | IMAGING REPORT - | | 09/07/2019 | | Results for this | | EXTERNAL SCAN | | 12:00 AM | | procedure are in the | | | | PST | | results section. | + +--------+ + + + | PATHOLOGY - EXTERNAL | | 08/24/2019 | | Results for this | | SCAN | | 12:00 AM | | procedure are in the | | | | PST | | results section. | + +--------+ + + + | IMAGING REPORT - | | 08/23/2019 | | Results for this | | EXTERNAL SCAN | | 12:00 AM | | procedure are in the | | | | PST | | results section. | + +--------+ + + + | LABS - EXTERNAL SCAN | | 08/04/2019 | | Results for this | | | | 12:00 AM | | procedure are in the | | | | PDT | | results section. | + +--------+ + + + documented in this encounter Results IMAGING REPORT - EXTERNAL SCAN (09/07/2019 12:00 AM PST) + + + | Narrative | Performed At | + + + | Ordered by an | | | unspecified provider. | | + + + PATHOLOGY - EXTERNAL SCAN (08/24/2019 12:00 AM PST) + + + | Narrative | Performed At | + + + | Ordered by an | | | unspecified provider. | | + + + IMAGING REPORT - EXTERNAL SCAN (08/23/2019 12:00 AM PST) + + + | Narrative | Performed At | + + + | Ordered by an | | | unspecified provider. | | + + + LABS - EXTERNAL SCAN (08/04/2019 12:00 AM PDT) + + + | Narrative | Performed At | + + + | Ordered by an | | | unspecified provider. | | + + + documented in this encounter Visit Diagnoses + + | Diagnosis | + + | Adenocarcinoma of rectosigmoid junction (HCC) | + + documented in this encounter
--- OUTSIDE RECORDS SUMMARY | ~2019-10-12 | XMS | Encounter Summary ---
Demographics + + + | Address | [address] | | | [place] [address] | + + + | Home Phone | | + + + | Preferred Language | Unknown | + + + | Marital Status | | + + + | Sikhism Affiliation | Unknown | + + + | Race | Unknown | + + + | Ethnic Group | Unknown | + + + Author + + + | Author | [facility] | | | and [place] | + + + | Organization | [facility] | | | [...] Team Providers + +------+ + | Care Business Rules Developer Name | Role | Phone | + [...] +--------+--------+ + + + + Encounter Details +--------+ + + + + | Date | Type | Department | Care Team | Description | +--------+ + + + + | 08/25/ | Hospital | [facility] | Enio Lange, | Colorectal tumor | | 2019 - | Encounter | [facility] [address] | MD [address] | (Primary Dx); Rectal | | | | [address] | [place] [address] | obstruction; | | 08/30/ | | [place], [place] | [phone] | Colorectal tumor; | | 2019 | | [address] | | Rectal obstruction; | | | | [phone] | Errol Mart MD | Anemia, unspecified | | | | | [address] | type; Essential | | | | | [place] [address] | hypertension | | | | | [phone] | | | | | | | | | | | | Giuliano Villaseñor, | | | | | | [address] | | | | | | [address] | | | | | | [place] [address] | | | | | | [phone] | | | | | | | | | | | | Jasmin Barker MD | | | | | | [address] | | | | | | [place] [address] | | | | | | [phone] | | | | | | | | +--------+ + + [...] Barker MD - 08/30/2019 2:35 PM PST [facility] Service: Hospitalist Physician Discharge Summary Patient ID: Arlene Rojas 1940 78 y.o. Admit date: 08/25/2019 Discharge date: 08/30/2019 Admitting Physician: Errol Mart MD Discharge Physician: Jasmin Barker MD Consultants: Treatment Team: Phong Tyson MD Primary Discharge Diagnoses: Principal Problem: Rectal mass Active Problems: Hypertension Hyperlipidemia Anemia Colorectal tumor Rectal obstruction HPI and Hospital Course: Mr. Rojas is a 78 yr old man with [...] for a rolling walker. He agreed for [facility] placemen t. He was accepted at [place]. Referral to a local oncologist was sent. He will follow up with surgery in 2 weeks. Past Medical History: Past Medical History: Diagnosis Date Hyperlipidemia Hypertension 2004 Tobacco abuse Past Surgical History: Procedure Laterality Date COLOSTOMY N/A 08/26/2019 Procedure: LAPAROSCOPIC COLOSTOMY CREATION; Surgeon: Phong Tyson MD; Location: [facility] MAIN OR OTHER SURGICAL HISTORY Left 1984 ORIF ANKLE FRACTURE OTHER SURGICAL HISTORY Bilateral 2016 CATARACT EXTRACTION SIGMOIDOSCOPY N/A 08/26/2019 Procedure: SIGMOIDOSCOPY FLEXIBLE; Surgeon: Phong Tyson MD; Location: [facility] MAIN OR Discharged Condition: Stable for discharge [...] nerve deficit . LABS: Recent Labs Lab 08/30/19 0429 11/45208/28/198 WBC 8.15 7.91 8.65 RBC 3.69* 3.80* 3.73* HGB 11.7* 12.0* 11.6* HCT 33.7* 34.9* 34.1* MCV 91.5 91.9 91.5 MCH 31.8 31.5 31.2 MCHC 34.7 34.3 34.1 PLT 255 235 241 MPV 9.0 9.0 9.3 DIFFTYPE AUTOMATED AUTOMATED AUTOMATED Recent Labs Lab 08/30/1942808/29/1945208/28/1941708/25/19 1822 NA 140 144 142 < > [...] input(s): CKTOTAL, TROPONINI, CKMBINDEX Recent Labs Lab 08/29/1945208/28/1941708/27/19 0510 PHOS 3.0 2.1* 3.8 Recent Labs Lab 08/29/1945208/28/1941708/27/19 0510 MG 1.7 2.0 2.2 Invalid input(s): ABG Disposition: Follow up: GRIFFIN Royal [address] [address] [facility] [address] Go on 09/11/2019 You have an appointment at 0930 on 09/11/2019 with Lizette MOYA [address] [phone] Phong Tyosn MD [address] [place] [address] Schedule an appointment as soon as possible [...] Gonzalez RN - 08/29/2019 2:04 PM PST [facility] Service: Ostomy Care Consult Note Hospital Day: 4 SUBJECTIVE Patient Summary: Ostomy nurse in for continued teaching. Family at bedside. 08/29/19 1357 Visit Information Visit Type Initial ostomy/fistula assessement Colostomy 08/26/19 1309 left Placement Date/Time: 08/26/19 130 Location: left Stoma Appearance round;red;protruding above skin [...] of appliance change. Plan is to return Shakeel manning for return demo. [place] CM has c ontacted patient's PCP and they will work with DME to get his ostomy supplies. Ostomy RX fo rm filled out with patient's specific ostomy appliances and CM has faxed this to the PCP. P joey is to provide patient with enough pouching supplies to last 2 weeks (until his post-op a ppointment) [facility] starter kit ordered with pt's permission # [id number] Thank you for allowing me to participate in the care of this patient. Soledad Berger RN, CWON 08/29/2019 14:04 Jasmin Herrmann MD - 08/29/2019 1:18 PM PSTFormatting of this note might be different from the or iginal. [facility] Service: Hospitalist Progress Note Hospital Day: LOS: 4 days SUBJECTIVE Patient Summary: Mr. Rojas is a 78 yr old man with [...] (97.5 F) Oral 74 20 97 % 08/28/19 2022 99/58 36.7 C (98 F) Oral 82 [...] Code Jasmin Barker MD 08/29/2019 1:19 PM Sree Smith ARN P - 08/29/2019 8:36 AM PST Colorectal Surgery Progress Note Pt. Name/Age/: Arlene Rojas 78 y.o. 1940 Med. Record Number: [id number] Date of admission: 08/25/2019 Service(s): Colorectal Surgery [...] nursing note reviewed. Exam conducted with a rubber goods tester present. Cardiovascular: Rate and Rhythm: Normal rate. [...] Yaquelin Smith RN 08/29/19 5:31 AM Giuliano Peralta DO - 2:50 PM PST PROGRESS NOTE for Arlene Rojas on the hospitalist service. 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 Adv ance diet and encourage ambulation. Patient/family need ostomy teaching. Path still pending, once available he can f/u with heme/onc, either Dr Malik here in town or supposedly there is a heme/onc Dr in the [facility] (where they live). HTN BP's remain low-normal [...] BMI 28.00 kg/m Physical exam: AOx3 NAD TUSCARORA Heart RRR Lungs CTa Abd SNTND +BS Ostomy has stool output Giuliano Villaseñor DO 08/28/2019 2:50 PM Sree Smith ARN P - 08/28/2019 8:17 AM PST Colorectal Surgery Progress Note Pt. Name/Age/: Arlene Rojas 78 y.o. 1940 Med. Record Number: [id number] Date of admission: 08/25/2019 Service(s): Colorectal Surgery [...] nursing note reviewed. Exam conducted with a rubber goods tester present. Cardiovascular: Rate and Rhythm: Normal rate. [...] person, place, and time. Labs: Recent Labs 08/28/198 08/27/19 0510 WBC 8.65 12.06* HGB 11.6* 12.1* HCT 34.1* 35.4* PLT 241 251 MCV 91.5 91.6 Recent Labs 08/28/198 08/27/19 0510 NA 142 140 K 4.1 [...] Encourage ambulation 2. General diet ok 3. mud mill tender consult and teaching AARON Bull 11:50 AM; 08/28/2019 Ayde Randall RN - 08/28/2019 7:53 AM PSTPt refusing waffle mattress, family and pt educated on q 2 turning instead Chart check complete Shade Larsen RN 08/28/19 @7:53 AM Giuliano Peralta DO - 08/27/2019 8:29 AM PST PROGRESS NOTE for Arlene Leiva Crystal on the hospitalist service. 08/27/2019 ASSESSMENT & [...] BMI 28.00 kg/m Physical exam: NAD AOx3 TUSCARORA Heart RRR Lungs CTA Abd SNTND +BS few Giuliano Villaseñor DO 08/27/2019 8:29 AM Donna Statnon RN - 1 10/26/2018 6:17 PM PSTPatient consuming coffee, tea and IMPACT. Giuliano Peralta DO - 08/26/2019 3:31 PM PST PROGRESS NOTE for Arlene Rojas on the hospitalist service. 08/26/2019 ASSESSMENT & [...] BMI 28.00 kg/m Physical exam: AOx3 NAD TUSCARORA Heart RRR Lungs CTA Abd SNTND ostomy [...] Shade Larsen RN 08/26/19 @7:47 AM Valentín Navarro, [facility] - 08/25/2019 7:41 PM PSTRx Admission Medication History Note I have reviewed the medication history for appropriate doses obtained by: ED Pharmacist After reviewing the home medication list : I agree with the home medications list. 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 Adjusted GENERAL II FARMWORKER medications according to the formulation technician note below. - removed lopermaide. Per family took one time and did not help, so patient is not taking. - last took all medications 08/21/19. - added daily multivitamin. Please Review and Order Home Medications as necessary. Thanks BRAYDEN MAIRON, TheresaD 08/25/2019 7:39 PM documented in t his encounter Plan of Treatment +--------+---------+ + + + | Date | Type | Specialty | Care Team | Description | +--------+---------+ + + + | 10/16/ | Office | Wound Care | Jair, | | | 2020 | Visit | | [address] | | | | | | [address] | | | | | | [place] [address] | | | | | | [phone] | | | | | | | | +--------+---------+ + + + + +------+--------+ + + | Name | [...] J?MRN: | | | | | | [id number] | | | [id number] | | | riteri | | | [...] | | | St. | | | [place] | | | y | | | [...] | | | St. | | | [place] | | | y H. | | [...] | | | St. | | | [place] | | | y H. | | [...] | | | 1-103a | | | [id number] | | | 41 | | | [...] | | | | | performed at [facility], [address] | | | | | | [facility], | | | | | | [place] [address] | | | | + + + + + + + + | Specimen | + + | Blood | + + + + + + + | Performing | Address | City/State/Zipcode | Phone Number | | Organization | | | | + + + + + | [facility] | [address] | [place] [address] | [phone] | + + + + + CBC [...] | | | Absolute | performed at [facility], [address] | K/uL | LABORATORY | | | | [address], | | | | | | [place] [address] | | | | + + + + + + + + | Specimen | + + | Blood | + + + + + + + | Performing | Address | City/State/Zipcode | Phone Number | | Organization | | | | + + + + + | [facility] | [address] | [place] [address] | [phone] | + + + + + Phosphorus (08/29/2019 4:53 AM PST) + + + + + + | Component | Value | Ref Range | Performed | Pathologist | | | | | At | Signature | + + + + + + | Phosphorus | 3.0Comment: Testing | 2.3 - 4.8 mg/dL | [facility] | | | | performed at [facility];[address] | | LABORATORY | | | | [address];[place], [place] | | | | | | [address] | | | | + + + + + + + + | Specimen | + + | Blood | + + + + + + + | Performing | Address | City/State/Zipcode | Phone Number | | Organization | | | | + + + + + | [facility] | [address] | [place] [address] | [phone] | + + + + + Magnesium (08/29/2019 4:53 AM PST) + + + + + + | Component | Value | Ref Range | Performed | Pathologist | | | | | At | Signature | + + + + + + | Magnesium | 1.7Comment: Testing | 1.7 - 2.4 mg/dL | [facility] | | | | performed at [facility] | | LABORATORY | | | | [facility];[place], [place] | | | | | | [address] | | | | + + + + + + + + | Specimen | + + | Blood | + + + + + + + | Performing | Address | City/State/Zipcode | Phone Number | | Organization | | | | + + + + + | [facility] | [address] | [place] [address] | [phone] | + + + + + Basic [...] | >60Comment: GFR <60: | >60 | [facility] | | | GFR | CHRONIC KIDNEY [...] | | | | | performed at [facility];[address] | | | | | | [facility];[place], [place] | | | | | | [address] | | | | + + + + + + + + | Specimen | + + | Blood | + + + + + + + | Performing | Address | City/State/Zipcode | Phone Number | | Organization | | | | + + + + + | [facility] | [address] | [place] [address] | [phone] | + + + + + CBC [...] | | | Absolute | performed at [facility];[address] | [address] | LABORATORY | | | | [address];[place], [place] | | | | | | [address] | | | | + + + + + + + + | Specimen | + + | Blood | + + + + + + + | Performing | Address | City/State/Zipcode | Phone Number | | Organization | | | | + + + + + | [facility] | [address] | [place] [address] | [phone] | + + + + + POC [...] | | | POC | performed at [facility];[address] | | LABORATORY | | | | [address];[place], [place] | | | | | | [address] | | | | + + + + + + + + | Specimen | + + | | + + + + + + + | Performing | Address | City/State/Zipcode | Phone Number | | Organization | | | | + + + + + | [facility] | [address] | [place] [address] | [phone] | + + + + + POC Glucose (08/28/2019 12:11 PM PST) + + + + + + | Component | Value | Ref Range | Performed | Pathologist | | | | | At | Signature | + + + + + + | Glucose, | 101 (H)Comment: Testing | 65 - 99 mg/dL | [facility] | | | POC | performed at [facility];[address] | | LABORATORY | | | | [address];[place] | | | | | | [address] | | | | + + + + + + + + | Specimen | + + | | + + + + + + + | Performing | Address | City/State/Zipcode | Phone Number | | Organization | | | | + + + + + | [facility] | [address] | [place] [address] | [phone] | + + + + + POC Glucose (08/28/2019 8:48 AM PST) + + + + + + | Component | Value | Ref Range | Performed | Pathologist | | | | | At | Signature | + + + + + + | Glucose, | 98Comment: Testing | 65 - 99 mg/dL | [facility] | | | POC | performed at [facility];[address] | | LABORATORY | | | | [address];[place] | | | | | | [address] | | | | + + + + + + + + | Specimen | + + | | + + + + + + + | Performing | Address | City/State/Zipcode | Phone Number | | Organization | | | | + + + + + | [facility] | [address] | [place] [address] | [phone] | + + + + + Phosphorus (08/28/2019 4:18 AM PST) + + + + + + | Component | Value | Ref Range | Performed | Pathologist | | | | | At | Signature | + + + + + + | Phosphorus | 2.1 (L)Comment: Testing | 2.3 - 4.8 mg/dL | [facility] | | | | performed at [facility], [address] | | LABORATORY | | | | [address], | | | | | | [place] [address] | | | | + + + + + + + + | Specimen | + + | Blood | + + + + + + + | Performing | Address | City/State/Zipcode | Phone Number | | Organization | | | | + + + + + | [facility] | [address] | [place] [address] | [phone] | + + + + + Magnesium (08/28/2019 4:18 AM PST) + + + + + + | Component | Value | Ref Range | Performed | Pathologist | | | | | At | Signature | + + + + + + | Magnesium | 2.0Comment: Testing | 1.7 - 2.4 mg/dL | [facility] | | | | performed at [facility], [address] | | LABORATORY | | | | [address], | | | | | | [place] [address] | | | | + + + + + + + + | Specimen | + + | Blood | + + + + + + + | Performing | Address | City/State/Zipcode | Phone Number | | Organization | | | | + + + + + | [facility] | [address] | [place] [address] | [phone] | + + + + + Basic [...] | | | | | performed at [facility], [address] | | | | | | [facility], | | | | | | [place] [address] | | | | + + + + + + + + | Specimen | + + | Blood | + + + + + + + | Performing | Address | City/State/Zipcode | Phone Number | | Organization | | | | + + + + + | [facility] | [address] | [place] [address] | [phone] | + + + + + CBC [...] | LABORATORY | | | | [address], | | | | | | [place] [address] | | | | + + + + + + + + | Specimen | + + | Blood | + + + + + + + | Performing | Address | City/State/Zipcode | Phone Number | | Organization | | | | + + + + + | [facility] | [address] | [place] [address] | [phone] | + + + + + POC Glucose (08/27/2019 8:35 PM PST) + + + + + + | Component | Value | Ref Range | Performed | Pathologist | | | | | At | Signature | + + + + + + | Glucose, | 129 (H)Comment: Testing | 65 - 99 mg/dL | [facility] | | | POC | performed at [facility];[address] | | LABORATORY | | | | [address];[place] | | | | | | [address] | | | | + + + + + + + + | Specimen | + + | | + + + + + + + | Performing | Address | City/State/Zipcode | Phone Number | | Organization | | | | + + + + + | [facility] | [address] | [place] [address] | [phone] | + + + + + POC Glucose (08/27/2019 12:05 PM PST) + + + + + + | Component | Value | Ref Range | Performed | Pathologist | | | | | At | Signature | + + + + + + | Glucose, | 99Comment: Testing | 65 - 99 mg/dL | [facility] | | | POC | performed at [facility];[address] | | LABORATORY | | | | [address];[place], [place] | | | | | | [address] | | | | + + + + + + + + | Specimen | + + | | + + + + + + + | Performing | Address | City/State/Zipcode | Phone Number | | Organization | | | | + + + + + | [facility] | [address] | [place] [address] | [phone] | + + + + + POC Glucose (08/27/2019 8:01 AM PST) + + + + + + | Component | Value | Ref Range | Performed | Pathologist | | | | | At | Signature | + + + + + + | Glucose, | 85Comment: Testing | 65 - 99 mg/dL | [facility] | | | POC | performed at [facility];[address] | | LABORATORY | | | | [address];[place] | | | | | | [address] | | | | + + + + + + + + | Specimen | + + | | + + + + + + + | Performing | Address | City/State/Zipcode | Phone Number | | Organization | | | | + + + + + | [facility] | [address] | [place] [address] | [phone] | + + + + + Phosphorus (08/27/2019 5:10 AM PST) + + + + + + | Component | Value | Ref Range | Performed | Pathologist | | | | | At | Signature | + + + + + + | Phosphorus | 3.8Comment: Testing | 2.3 - 4.8 mg/dL | [facility] | | | | performed at [facility], [address] | | LABORATORY | | | | [address], | | | | | | [place] [address] | | | | + + + + + + + + | Specimen | + + | Blood | + + + + + + + | Performing | Address | City/State/Zipcode | Phone Number | | Organization | | | | + + + + + | [facility] | [address] | [place] [address] | [phone] | + + + + + Magnesium (08/27/2019 5:10 AM PST) + + + + + + | Component | Value | Ref Range | Performed | Pathologist | | | | | At | Signature | + + + + + + | Magnesium | 2.2Comment: Testing | 1.7 - 2.4 mg/dL | [facility] | | | | performed at [facility], [address] | | LABORATORY | | | | [address], | | | | | | [place] [address] | | | | + + + + + + + + | Specimen | + + | Blood | + + + + + + + | Performing | Address | City/State/Zipcode | Phone Number | | Organization | | | | + + + + + | [facility] | [address] | [place] [address] | [phone] | + + + + + Basic [...] | >60Comment: GFR <60: | >60 | [facility] | | | GFR | CHRONIC KIDNEY [...] | | | | | | MDRD IDNE traceable | | | | | | equation.Testing | | | | | | performed at [facility], [address] | | | | | | [facility], | | | | | | [place] [address] | | | | + + + + + + + + | Specimen | + + | Blood | + + + + + + + | Performing | Address | City/State/Zipcode | Phone Number | | Organization | | | | + + + + + | [facility] | [address] | [place] [address] | [phone] | + + + + + CBC [...] | RBC AND PLT MORPHOLOGY | | [facility] | | | Morphology | APPEAR NORMALComment: | | LABORATORY | | | | Testing performed at | | | | | | [facility], [address] [facility] | | | | | | [place] | | | | | | [address] | | | | + + + + + + + + | Specimen | + + | Blood | + + + + + + + | Performing | Address | City/State/Zipcode | Phone Number | | Organization | | | | + + + + + | [facility] | [address] | [place] [address] | [phone] | + + + + + POC Glucose (08/27/2019 4:06 AM PST) + + + + + + | Component | Value | Ref Range | Performed | Pathologist | | | | | At | Signature | + + + + + + | Glucose, | 81Comment: Testing | 65 - 99 mg/dL | [facility] | | | POC | performed at [facility];[address] | | LABORATORY | | | | [address];[place], [place] | | | | | | [address] | | | | + + + + + + + + | Specimen | + + | | + + + + + + + | Performing | Address | City/State/Zipcode | Phone Number | | Organization | | | | + + + + + | [facility] | [address] | [place] [address] | [phone] | + + + + + POC Glucose (08/26/2019 9:14 PM PST) + + + + + + | Component | Value | Ref Range | Performed | Pathologist | | | | | At | Signature | + + + + + + | Glucose, | 101 (H)Comment: Testing | 65 - 99 mg/dL | [facility] | | | POC | performed at [facility];[address] | | LABORATORY | | | | [address];[place], [place] | | | | | | [address] | | | | + + + + + + + + | Specimen | + + | | + + + + + + + | Performing | Address | City/State/Zipcode | Phone Number | | Organization | | | | + + + + + | [facility] | [address] | [place] [address] | [phone] | + + + + + Surgical [...] of the | | | rectum (see [id number]). As part of [employer]' Quality | | | Improvement Program, this [...] surfaceis barker-yellow and lobulated. | | | Maintenance Service Technician sections are submitted in cassette (A1). B. [...] is barker-yellow and | | | lobulated. Maintenance Service Technician sections are submitted incassette (B1). | | [...] component was performed | | | by [employer], [address] [place] [address] (Medical | | | Director: Yenny Young MD; CLIA# [id number]). Professional | | | interpretation was performed by[employer], [facility] | | | [address] [address] (Medical | | | Director: Kenyon Delacruz M.D.; CLIA#: [id number]). REASON FOR | | | ADDENDUM:Results of [...] | | | preparation) was performed at [facility]. | | | Interpretation was performed at [facility]. | | | Immunohistochemical studies and/or special stains were performed on | | | this case with the appropriate controls, which stain appropriately. | | | These tests were developed and their performance characteristics | | | determined by [facility] and/or [facility]. These tests | | | may have not been cleared or approved by the U.S. Food and Drug | | | Administration. The FDA has determined that suchclearance or | | | approval is not necessary. [facility] and [facility] are certified | | | under the [...] designed to | | | detect V600E ([id number]). Some non-V600E mutations, V600K, V600D, and | [...] | analysis test have been determined by [employer], [address] | | [address] [place], [place],but have not been cleared or approved [...] | | analysis tests were performed at [employer], [address] | | | [place] [address] (Lens Generating Machine Tender: Gaudencio Lira MD; CLIA# | | | [id number]). REASON FOR ADDENDUM:This case is addended for the | | | addition of BRAF and KRAS Mutation Analysis results. ADDENDUM | | | PATHOLOGIC DIAGNOSIS:[id number], [id number] BIOPSY: Mutation DETECTED | | | - [...] colorectal cancer. J Clin Oncol 2008; 26(35): 9230-1511. doi: | | | 10.1200/JCO.2008.18.41228. Arnel IG, Alexis M, Boateng M, et al. | | | Wild-type KRAS is required for panitunumab efficacy in patients with | | | metastatic colorectal cancer. J Clin Oncol 2008; 26:0379-7763. | | | doi:10.1200/JCO.2007.14.30513. Gilda PATTON, Cheli MENDOZA, Ean A, et | | | al. Extended TAO mutations and anti-EGFR monoclonal antibody survival | | | benefit in metastatic colorectal cancer: a meta-analysis of | | | randomized, controlled trials.Annals of Oncol 2014; 26(1): 13-21. doi: | | | 10.1093/annon/uqt364 4. Navi HERMOSILLO, Melissa RODRIGUEZ. KRAS | | | Mutation: Should We Test for It, and Does It Matter? J Clin Oncol | | | 2013; 31:3510-8969. doi: 10.1200/[id number].[id number] ADDENDUM CLINICAL | | | [...] | | paraffin tissue block B1, numbered [id number], belonging to patient | | | ARLENE ROJAS. Diagnostician: Nicanor Elias | | | DOPathologistDiagnostician: Kenyon Delacruz | | | MDPathologistDiagnostician: Prieto Brito MT([facility]) | | | MBPathologistDiagnostician: Demi Bearden MD [...] Note | + + | Adal Horner Results In - 08/26/2019 6:38 AM PST [...] BAND | Testing performed at | | [facility] | | | | [facility] | [address] | | | | [address];[place] [address] | | | | + + + + + + + + | Specimen | + + | Blood | + + + + + + + | Performing | Address | City/State/Zipcode | Phone Number | | Organization | | | | + + + + + | [facility] | [address] | [place] [address] | [phone] | + + + + + Enriqueta SANDY (08/26/2019 4:25 AM PST) + + + [...] | | | | | performed at [facility] | | | | | | [address];[place], [place] | | | | | | [address] | | | | + + + + + + + + | Specimen | + + | Blood | + + + + + + + | Performing | Address | City/State/Zipcode | Phone Number | | Organization | | | | + + + + + | [facility] | [address] | [place] [address] | [phone] | + + + + + Ferritin (08/26/2019 4:25 AM PST) + + + + + + | Component | Value | Ref Range | Performed | Pathologist | | | | | At | Signature | + + + + + + | Ferritin | 144Comment: Testing | 11 - 450 ng/mL | FLORY | | | | performed at [facility], [address] | | LABORATORY | | | | [address], | | | | | | [place] [address] | | | | + + + + + + + + | Specimen | + + | Blood | + + + + + + + | Performing | Address | City/State/Zipcode | Phone Number | | Organization | | | | + + + + + | [facility] | [address] | [place] [address] | [phone] | + + + + + Iron [...] | LABORATORY | | | | [address], | | | | | | [place] [address] | | | | + + + + + + + + | Specimen | + + | Blood | + + + + + + + | Performing | Address | City/State/Zipcode | Phone Number | | Organization | | | | + + + + + | [facility] | [address] | [place] [address] | [phone] | + + + + + CBC [...] MPV | 8.8Comment: Testing | fl | FLORY | | | | performed at [address], [address] | | LABORATORY | | | | [address], | | | | | | [place] [address] | | | | + + + + + + + + | Specimen | + + | Blood | + + + + + + + | Performing | Address | City/State/Zipcode | Phone Number | | Organization | | | | + + + + + | [facility] | [address] | [place] [address] | [phone] | + + + + + Basic [...] | >60Comment: GFR <60: | >60 | [facility] | | | GFR | CHRONIC KIDNEY [...] | | | | | performed at [facility], [address] | | | | | | [facility], | | | | | | [place] [address] | | | | + + + + + + + + | Specimen | + + | Blood | + + + + + + + | Performing | Address | City/State/Zipcode | Phone Number | | Organization | | | | + + + + + | [facility] | [address] | [place] [address] | [phone] | + + + + + Urinalysis [...] - 1.030 | [facility] | | | [place], | | | LABORATORY | | | [...] | | LABORATORY | | | | [facility];[address] [place] [address] | | | | | | Blvd;[place] [address] | | | | + + + [...] | + + + + + | [facility] | [address] | [place] [address] | [phone] | + + + + + Comprehensive [...] | >60Comment: GFR <60: | >60 | [facility] | | | GFR | CHRONIC KIDNEY [...] | | | | | | MDRD [facility] traceable | | | | | | equation.Testing | | | | | | performed at [facility];[address] | | | | | | [facility];[place], [place] | | | | | | [address] | | | | + + + + + + + + | Specimen | + + | Blood | + + + + + + + | Performing | Address | City/State/Zipcode | Phone Number | | Organization | | | | + + + + + | [facility] | [address] | [place] [address] | [phone] | + + + + + CBC [...] | | | Absolute | performed at [facility];[address] | [address] | LABORATORY | | | | [address];[place] | | | | | | [address] | | | | + + + + + + + + | Specimen | + + | Blood | + + + + + + + | Performing | Address | City/State/Zipcode | Phone Number | | Organization | | | | + + + + + | [facility] | [address] | [place] [address] | [phone] | + + + + + documented in this encounter Visit Diagnoses + + | Diagnosis | + + | Rectal mass - Primary Other symptoms involving digestive system | + + | 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 | + + | Rectal obstruction Other specified disorder of rectum and anus | + + | Anemia, unspecified type | + + | Essential hypertension Unspecified essential hypertension | + + | Hypertension Unspecified essential hypertension | + + | Hyperlipidemia Other and unspecified hyperlipidemia | + + documented in this encounter [...] | acetaminophen (TYLENOL) tablet | Given | 08/30/20 | 1,000 mg [...] +-------+---+---+ +---+---+ | | | +---+---+ + + + +---+---+---+ | balanced electrolytes in water | Continue | 08/26/20 | | | | | (PLASMALYTE-148/NORMOSOL-R) | d by | 19 11:26 | | | | | infusion at 30 mL/hr, | Anesthes | AM PST | | | | | Intravenous, CONTINUOUS, Starting | ia | | | | | | 08/26/19 at 0845, Pre-op | | | | | | + + + +---+---+---+ +---------+ +---+ +---+ | New Bag | 08/26/20 | | 30 mL/hr | | | | 19 9:00 | | | | | | AM PST | | | | +---------+ +---+ +---+ + +---+ | | | + +---+ [...] | | +---+---+ + +-------+ +--------+---+---+ | fentaNYL (PF) injection 25-50 | Given | 08/26/20 | 25 mcg | | | | mcg 25-50 mcg, Intravenous, | | 19 1:55 | | | | | EVERY 5 MIN PRN, Pain, Initial | | PM PST | | | | | postop medication for URGENT PAIN | | | | | | | OR ESCALATING PAIN, Starting Sat | | | | | | | 08/26/19 at 1300, For 4 doses, | | | | | | | First dose must be lowest dose. | | | | | | | Use Pasero Sedation Scale. | | | | | | | [Opioid tolerant = One week or | | | | | | | longer, zqrjjg-lkt-uvcpl use of | | | | | | | at least the following DAILY | | | | | | | dose: 60mg oral morphine, 60mg | | | | | | | oral hydrocodone, 30mg oral | | | | | | | oxycodone, 8mg oral | | | | | | | hydromorphone, fentanyl patch | | | | | | | 25mcg/hr, or equivalent dose of | | | | | | | another opioid], Recovery/Phase I | | | | | | + +-------+ +--------+---+---+ +-------+ +--------+---+---+ | Given | 08/26/20 | 25 mcg | | | | | 19 1:45 | | | | | | PM PST | | | | +-------+ +--------+---+---+ +---+---+ | | | +---+---+ + +-------+ +--------+---+---+ | gabapentin (NEURONTIN) capsule | Given | 08/29/20 | 100 mg | | | | 100 mg 100 mg, Oral, 3 TIMES | | 19 8:32 | | | | | DAILY, First dose on 08/26/19 | | AM PST | | | | | at 1500, For 3 days, Hold for | | | | | | | over-sedation, dizziness or | | | | | | | visual disturbance and contact | | | | | | | MD., Post-op/Phase II | | | | | | + +-------+ +--------+---+---+ +-------+ +--------+---+---+ | Given | 08/28/20 | 100 mg | | | | | 19 9:12 | | | | | | PM PST | | | | +-------+ +--------+---+---+ | Given | 08/28/20 | 100 mg | | | | | 19 2:34 | | | | | | PM PST | | | | +-------+ +--------+---+---+ +---+---+ | | | +---+---+ + +-------+ +--------+---+ + | heparin 5,000 units/mL | Given | 08/25/20 | 5,000 | | Abdomen- | | injection 5,000 Units 5,000 | | 19 9:02 | Units | | RLQ | | Units, Subcutaneous, EVERY 12 | | PM PST | | | | | HOURS (2 times per day), First | | | | | | | dose on Wed08/25/19 at 2100 | | | | | | [...] ringers (LR) infusion | New Bag | 08/26/20 | | 75 mL/hr | | | at 100 mL/hr, Intravenous, | | 19 8:58 | | | | | CONTINUOUS, Starting 08/26/19 | | PM PST | | | | | at 1500, Post-op/Phase II | | | | | | + +---------+ +---+ +---+ +---+---+ | | | +---+---+ + +---------+ [...] | | +---+---+ + +-------+ +------+---+---+ | morphine injection 4 mg 4 mg, | Given | 08/25/20 | 4 mg | | | | Intravenous, ONCE, 08/25/19 | | 19 7:18 | | | | | at 1910, For 1 dose | | PM PST | | | | + +-------+ +------+---+---+ +---+---+ | | | +---+---+ + +-------+ +------+---+---+ | ondansetron (ZOFRAN) injection | Given | 08/25/20 | 4 mg | | | | 4 mg 4 mg, Intravenous, ONCE, | | 19 7:18 | | | | | 08/25/19 at 1910, For 1 dose | | PM PST | | | | + +-------+ +------+---+---+ +---+---+ | | | +---+---+ + +-------+ [...] PST | | | | +-------+ +------+---+---+ +---+---+ | | | +---+---+ + +---------+ +---+-------+---+ | sodium chloride 0.9% (NS) | New Bag | 08/26/20 | | 100 | | | infusion at 100 mL/hr, | | 19 5:50 | | mL/hr | | | Intravenous, CONTINUOUS, Starting | | AM PST | | | | | 08/25/19 at 2045 | | | | | | + +---------+ +---+-------+---+ +---------+ +---+-------+---+ | New Bag | 08/25/20 | | 100 | | | | 19 9:01 | | mL/hr | | | | PM PST | | | | +---------+ +---+-------+---+ + +---+ | | | + +---+ [...]
--- OUTSIDE RECORDS SUMMARY | ~2019-10-12 | XMS | Encounter Summary ---
Demographics + + + | Address | [address] | | | [place] [address] | + + + | Home Phone | | + + + | Preferred Language | Unknown | + + + | Marital Status | | + + + | Gnosticist Affiliation | Unknown | + + + [...] Team Providers + +------+ + | Care Barrel Turner Name | Role | Phone | + +------+ + | Lizette Martinez | PCP | | + +------+ + Encounter Details +--------+ + + + + | Date | Type | Department | Care Team | Description | +--------+ + + + + | 09/14/ | Abstract | [facility] | Miley Wright, | | | 2018 | | [facility] | PERIPHERAL EDP EQUIPMENT OPERATOR | | | | | [facility] [address] | | | | | | [address] | | | | | | [place] [address] | | | | | | [phone] | | | +--------+ + + + [...] [address] | | | | | | [place] [address] | | | | | | [phone] | | | | | | | | +--------+---------+ + + + documented as of this encounter Visit Diagnoses Not on filedocumented in this encounter"
--- OUTSIDE RECORDS SUMMARY | ~2019-10-12 | XMS | Encounter Summary ---
Demographics + + + | Address | [address] | | | [place] [address] | + + + | Home Phone | | + + + | Preferred Language | Unknown | + + + | Marital Status | | + + + | Alevism Affiliation | Unknown | + + + | Race | Unknown | + + + | Ethnic Group | Unknown | + + + Author + + + | Author | [facility] | | | and [place] | + + + | Organization | [facility] | | [...] Providers + +------+ + | Care Business Solutions Consultant Name | Role | Phone | + +------+ + | Lizette Martinez | PCP | | + +------+ + Encounter Details +--------+ + + + + | Date | Type | Department | Care Team | Description | +--------+ + + + + | 09/14/ | Abstract | [facility] | Miley Wright, | | | 2018 | | [facility] CTR MED[facility] | GENERAL COUNSELOR | | | | | ON[facility]OGY CLINIC [address] | | | | | | [address] | | | | | | [place] [address] | | | | | | [phone] | | | +--------+ + + + [...] [address] | | | | | | [place] [address] | | | | | | [phone] | | | | | | | | +--------+---------+ + + + documented as of this encounter Visit Diagnoses Not on filedocumented in this encounter"
--- OUTSIDE RECORDS SUMMARY | ~2019-10-12 | XMS | Clinical Summary ---
Demographics + + + | Address | [address] | | | [place] [address] | + + + | Home Phone | | + + + | Preferred Language | Unknown | + + + | Marital Status | | + + + | Jain Affiliation | Unknown | + + + | Race | Unknown | + + + | Ethnic Group | Unknown | + + + Author + + + | Author | [facility] | | | and [place] | + + + | Organization | [facility] | | | [...] Team Providers + +------+ + | Care Dairy Feed Sales Consultant Name | Role | Phone | [...] tablet by | 30 | 0 | 11/2 | 12/1 | Disco | | (ROXICODONE) 5 mg | mouth every 4 hours | tablet | | 7/20 | 2/20 | ntinu | | tablet | as needed for Pain. 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 Presentation to the Emergency Room | | on August 23, 2019 with a 10 week history of abdominal | | distension and pain, and bloody diarrhea.2. CT scan | | abdomen/pelvis on August 23, 2019 at | | demonstrated significant nodularity in the omentum and mesentery, | | thickened rectosigmoid with diminished lumen. No liver | | metastases, nodule at left lung base. 3. Limited colonoscopy and | | rigid proctoscopy (Tahir) on August 24, 2019 demonstrated a | | circumferential palpable mass palpable within the rectum, | | estimated to be 10 cm long by proctoscopy. Specimen # [id number] | | ([facility]iva, [employer]); Pooly differentiated | | adenocarcinoma, with signet [...] on September 03, 2019 ([facility], | | [place]); innumerable mesenteric and omental soft tissue | | nodules, largest 3 x 5.5 cm, right basilar pleural effusion and | | bilateral pleural nodularity suspicious for metastatic disease. | | Last Assessment & Plan: Arlene Rojas is referred by Sree | | Yifan Adam [address] [place] [address] for | | evaluation and management of confirmed regionally metastatic | | colon cancer to the omentum, with unconfirmed metastatic disease | | to the right lung.I met with Crystal and his daughter, Gissel, at | | [facility] on | | 09/14/2019.Review of systems is notable for rectal pain.Clinical | | exam is notable for decreased breath sounds and dullness at the | | right base.Laboratory exam is notable for elevated CEA.Images | | from his evaluations were | | reviewed.Assessment: confirmed regionally metastatic colon cancer | | to the omentum, with unconfirmed metastatic disease to the right | | lung.Plan; This was an extended, high-value encounter were we | | reviewed Mr. Rojas's [id number]-[id number], his goals of therapy and | | [...] | | proceed with treatment directly at [facility] in | | [place], [place]. He will be referred to Dr. Emeterio [...] automatically from request for surgery | | [id number] | + + + + + | Rectal obstruction | 08/25/2019 | + + + + + | Overview: Added automatically from request for surgery | | [id number] | + + + + + | [...] Oncology | Miley Wright, | | | 2018 | | | SLEEVE SEWER | | +--------+ + + + + [...] | | 2018 | on | | Manager Retail Sales | | +--------+ + + + + | 09/05/ | Navigation | Oncology | Alva See | | | 2018 | Services | | JAIME Persaud | | +--------+ + + + + | 09/05/ | Orders Only | General Surgery | Alva See | Adenocarcinoma of | | 2018 | | | JAIME Persaud | rectosigmoid | | | | | | junction (HCC) | | | | | | (Primary Dx) | +--------+ + + + + | 08/26/ | Anesthesia | | Judson Mcmullen | | | 2018 | Event | | DEANNA Toure | | +--------+ + + + + | 08/26/ | Surgery | | Ailabouni, Phong D, | LAPAROSCOPIC | | 2018 | | | | COLOSTOMY CREATION | +--------+ + + + + | 08/26/ | Hospital | Radiology | Phong Tyson, | | | 2018 | Encounter | | MD | | +--------+ + + + + | 08/25/ | Hospital | General Surgery | Enio Lange, | Colorectal tumor | | 2018 - | Encounter | | Errol Alcocer, [...] | | | | | | [address] | | | | | | [place] [address] | | | | | | [phone] | | | | | | | [...] | | n - | | | | | | 2018 | | | [...] | | | ON?11/ | | | | | | 9 | | | 16:36? | | | CRYSTAL, | | | | | | FERMOR | | | E | | | J?MRN: | | | | | | [id number] | | | [id number] | | | riteri | | | [...] | | | St. | | | [place] | | | y | | | [...] | | | St. | | | [place] | | | y H. | | [...] | | | St. | | | [place] | | | y H. | | [...] | | | 1-103a | | | x6133q | | | 41 | | | [...] the most recent of 2 results w tayein the time period is included. + + [...] | | | Absolute | performed at [facility], [address] | [address] | LABORATORY | | | | [address], | | | | | | [place] [address] | | | | + + + + + + + + | Specimen | + + | Blood | + + + + + + + | Performing | Address | City/State/Zipcode | Phone Number | | Organization | | | | + + + + + | [facility] | [address] | [place] [address] | [phone] | + + + + + Comprehensive Metabolic Panel (08/30/2019 4:29 AM PST)Only the most recent of 2 results wi [...] | >60Comment: GFR <60: | >60 | KR | | | GFR | CHRONIC KIDNEY [...] | | | | | performed at [facility], [address] | | | | | | [facility], | | | | | | [place] [address] | | | | + + + + + + + + | Specimen | + + | Blood | + + + + + + + | Performing | Address | City/State/Zipcode | Phone Number | | Organization | | | | + + + + + | [facility] | [address] | [place] [address] | [phone] | + + + + + Phosphorus [...] Testing | 2.3 - 4.8 mg/dL | [facility] | | | | performed at [facility];[address] | | LABORATORY | | | | [address];[place], [place] | | | | | | [address] | | | | + + + + + + + + | Specimen | + + | Blood | + + + + + + + | Performing | Address | City/State/Zipcode | Phone Number | | Organization | | | | + + + + + | [facility] | [address] | [place] [address] | [phone] | + + + + + Magnesium [...] Testing | 1.7 - 2.4 mg/dL | [facility] | | | | performed at [facility];[address] | | LABORATORY | | | | [facility];[place], [place] | | | | | | [address] | | | | + + + + + + + + | Specimen | + + | Blood | + + + + + + + | Performing | Address | City/State/Zipcode | Phone Number | | Organization | | | | + + + + + | [facility] | [address] | [place] [address] | [phone] | + + + + + Basic [...] | >60Comment: GFR <60: | >60 | [facility] | | | GFR | CHRONIC KIDNEY [...] | | | | | | MDRD [facility] traceable | | | | | | equation.Testing | | | | | | performed at [facility];[address] | | | | | | [facility];[place], [place] | | | | | | [address] | | | | + + + + + + + + | Specimen | + + | Blood | + + + + + + + | Performing | Address | City/State/Zipcode | Phone Number | | Organization | | | | + + + + + | [facility] | [address] | [place] [address] | [phone] | + + + + + POC [...] Testing | 65 - 99 mg/dL | [facility] | | | POC | performed at [facility];[address] | | LABORAT[address] | | | [address];[place] | | | | | | [address] | | | | + + + + + + + + | Specimen | + + | | + + + + + + + | Performing | Address | City/State/Zipcode | Phone Number | | Organization | | | | + + + + + | [facility] | [address] | [place] [address] | [phone] | + + + + + Surgical [...] of the | | | rectum (see [id number]). As part of [facility]' Quality | | | Improvement Program, this [...] surfaceis barker-yellow and lobulated. | | | Second Chef sections are submitted in cassette (A1). B. [...] is barker-yellow and | | | lobulated. Second Chef sections are submitted incassette (B1). | | [...] component was performed | | | by [facility], [address] [place] [address] (Medical | | | Director: Yenny Young MD; CLIA# [id number]). Professional | | | interpretation was performed by[facility] | | | [facility], [address] [place] [address] (Medical | | | Director: Kenyon Delacruz M.D.; [facility]#: [id number]). REASON FOR | | | ADDENDUM:Results of [...] | | | preparation) was performed at [facility]. | | | Interpretation was performed at [facility]. | | | Immunohistochemical studies and/or special stains were performed on | | | this case with the appropriate controls, which stain appropriately. | | | These tests were developed and their performance characteristics | | | determined by [facility] and/or [facility]. These tests | | | may have not been cleared or approved by the U.S. Food and Drug | | | Administration. The FDA has determined that suchclearance or | | | approval is not necessary. [facility] and [facility] are certified | | | under the [...] designed to | | | detect V600E ([id number]). Some non-V600E mutations, V600K, V600D, and | [...] | analysis test have been determined by [facility], [address] | | [address] [place], [place],but have not been cleared or approved [...] | | analysis tests were performed at [facility], [address] | | | [place] [address] (Timber Estimator: Gaudencio Lira MD; CLIA# | | | [id number]). REASON FOR ADDENDUM:This case is addended for the | | | addition of BRAF and KRAS Mutation Analysis results. ADDENDUM | | | PATHOLOGIC DIAGNOSIS:[id number], W5TYALISS BIOPSY: Mutation DETECTED | | | - [...] colorectal cancer. J Clin Oncol 2008; 26(35): 5711-4572. doi: | | | 10.1200/JCO.2008.18.86029. Arnel IG, Alexis M, Boateng M, et al. | | | Wild-type KRAS is required for panitunumab efficacy in patients with | | | metastatic colorectal cancer. J Clin Oncol 2008; 26:4752-3664. | | | doi:10.1200/JCO.2007.14.14427. Gilda PATTON, Cheli MENDOZA, Ean A, et | | | al. Extended TAO mutations and anti-EGFR monoclonal antibody survival | | | benefit in metastatic colorectal cancer: a meta-analysis of | | | randomized, controlled trials.Annals of Oncol 2014; 26(1): 13-21. doi: | | | 10.1093/annonc/zta574 4. Navi HERMOSILLO, Melissa RODRIGUEZ. KRAS | | | Mutation: Should We Test for It, and Does It Matter? J Clin Oncol | | | 2013; 31:5883-7172. doi: 10.1200/JCO.2012.43.0454 ADDENDUM CLINICAL | | | [...] | | paraffin tissue block B1, numbered [id number], belonging to patient | | | ARLENE ROJAS. Diagnostician: Nicanor Elias | | | DOPathologistDiagnostician: Kenyon Delacruz | | | MDPathologistDiagnostician: Prieto Brito MT([facility]) | | | MBPathologistDiagnostician: Demi [...] | | LABORATORY | | | | Blvd;[place] [address] | | | | + + + + + + + + | Specimen | + + | Blood | + + + + + + + | Performing | Address | City/State/Zipcode | Phone Number | | Organization | | | | + + + + + | [facility] | [address] | [place] [address] | [phone] | + + + + + Iron [...] [address], | | | | | | [place] [address] | | | | + + + + + + + + | Specimen | + + | Blood | + + + + + + + | Performing | Address | City/State/Zipcode | Phone Number | | Organization | | | | + + + + + | [facility] | [address] | [place] [address] | [phone] | + + + + + Protime INR (08/26/2019 4:25 AM PST) + + + + + + | Component | Value | Ref Range | Performed | Pathologist | | | | | At | Signature | + + + + + + | INR | 1.1Comment: REFERENCE | | [facility] | | | | RANGE:0.9 - 1.2 [...] | | | | | performed at [facility];[address] | | | | | | [facility];[place] | | | | | | [address] | | | | + + + + + + + + | Specimen | + + | Blood | + + + + + + + | Performing | Address | City/State/Zipcode | Phone Number | | Organization | | | | + + + + + | [facility] | [address] | [place] [address] | [phone] | + + + + + CBC [...] [facility] | | | | performed at [facility], [address] | | LABORATORY | | | | [address], | | | | | | [place] [address] | | | | + + + + + + + + | Specimen | + + | Blood | + + + + + + + | Performing | Address | City/State/Zipcode | Phone Number | | Organization | | | | + + + + + | [facility] | [address] | [place] [address] | [phone] | + + + + + Ferritin (08/26/2019 4:25 AM PST) + + + + + + | Component | Value | Ref Range | Performed | Pathologist | | | | | At | Signature | + + + + + + | Ferritin | 144Comment: Testing | 11 - 450 ng/mL | [facility] | | | | performed at [facility], [address] | | LABORATORY | | | | [address], | | | | | | [place] [address] | | | | + + + + + + + + | Specimen | + + | Blood | + + + + + + + | Performing | Address | City/State/Zipcode | Phone Number | | Organization | | | | + + + + + | [facility] | [address] | [place] [address] | [phone] | + + + + + Urinalysis [...] - 1.030 | [facility] | | | [place], | | | LABORATORY | | | [...] | | LABORATORY | | | | [facility];[address] | | | [address];[place] [address] | | | | + + + [...] | + + + + + | [facility] | [address] | [place] [address] | [phone] | + + + + + PATHOLOGY [...] +--------+ +---------+--------+ | MEDICARE | MEDICA | [id number] | 04/03/20 | [phone] | | Medica | | | RE | | 14-Pre | 5 | | re | | | PART A | | sent | | | | | | AND B | | | | | | + +--------+ +--------+ +---------+--------+ | [facility] | IHS | [id number] | | | | Indemn | | SERVICE | YELLOW | | 019-Pr | | | ity | | | HAWK | | esent | | | | + +--------+ +--------+ +---------+--------+ | [facility] | IHS | [id number] | 10/04/19 | | | Indemn | | SERVICE | YELLOW | | 19-Pre | | | ity | | | HAWK | | sent | | | | + +--------+ +--------+ +---------+--------+ | MEDICARE | MEDICA | [id number] | 04/03/20 | [phone] | | Medica [...] Person | Self [birth year] | [address] | | | al/Fam | | 1941 | [phone] | [place] [address] | | | [place] | | | 9 (Home) | | + +--------+ +--------+ + + | Arlene Rojas | Person | Self | [birth year] | | [address] | | | al/Fam | | 1941 | [phone] | [place] [address] | | | tunde | | | 9 (Home) | | + +--------+ +--------+ + + Advance Directives + + + + + | Type | Date Recorded | Patient | Explanation | | | | Second Chef | | + + + + + | Power of | | | | | Jewelry Bench Worker | | | | + + + [...]
--- OUTSIDE RECORDS SUMMARY | ~2019-10-12 | XMS | Encounter Summary ---
Demographics + + + | Address | [address] | | | [place] [address] | + + + | Home Phone | | + + + | Preferred Language | Unknown | + + + | Marital Status | | + + + | Orthodox Affiliation | Unknown | + + + | Race | Unknown | + + + | Ethnic Group | Unknown | + + + Author + + + | Author | [facility] | | | and [place] | + + + | Organization | [facility] | | | [...] Team Providers + +------+ + | Care Shearing Machine Feeder Name | Role | Phone | + [...] | / Cardiology | done sah | [address] | GRADU[address] FELLOW [address] | | | | | Procedures | SARAH BLACKMON | [place] | | | | | OFFICE VISIT | [place] | [address] [place] | | | | | REGULAR | [place] [address] | [facility] | | | | | | Phone: | [address] Phone: | | | | | | [phone] | [phone] | | | | | | Fax: | Fax: | | | | | | [phone] | [phone] | +--------+--------+ + + + + Encounter Details +--------+---------+ + + + | Date | Type | Department | Care Team | Description | +--------+---------+ + + + | 07/10/ | Office | [facility] | Naina Judd | Essential | | 2019 | Visit | CARDIOLOGY [place] | [address] | hypertension | | | | [address] | [place] | (Primary Dx); Chest | | | | [address] | [place] [address] | pressure; Mixed | | | | [place], [place] | [phone] | hyperlipidemia; | | | | [address] | | Tobacco abuse | | | | [phone] | | | +--------+---------+ + + + [...] 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 He previously had a normal echo performed at [facility] Dr. Barahona ordered him a stress test. [...] use. Exercises with and tolerates. Lives in [place] [facility] Medications Prior to Visit Medication Sig [...] with PAC's. 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 Problem list. Erika WALKER [facility] Cardiology 07/10/2019 docume ntmarquita in this encounter Plan of Treatment +--------+---------+ + + + | Date | Type | Specialty | Care Team | Description | +--------+---------+ + + + | 10/16/ | Office | Wound Care | Jair, | | | 2019 | Visit | | [address] | | | | | | [address] | | | | | | [place] [address] | | | | | | [phone] | | | | | | | [...]
--- OUTSIDE RECORDS SUMMARY | ~2019-10-12 | XMS | Encounter Summary ---
Demographics + + + | Address | [address] | | | [place] [address] | + + + | Home Phone | | + + + | Preferred Language | Unknown | + + + | Marital Status | | + + + | Mandaeism Affiliation | Unknown | + + + | Race | Unknown | + + + | Ethnic Group | Unknown | + + + Author + + + | Author | [facility] | | | and [place] | + + + | Organization | [facility] | | [...] Team Providers + +------+ + | Care Customer Service Trainer Name | Role | Phone | + [...] | / Cardiology | done sah | [address] | [address] | | | | | Procedures | SARAH BLACKMON | LISETH [place]IN | | | | | OFFICE VISIT | [place] | [address] | | | | | REGULAR | [place] [address] | [facility] | | | | | | Phone: | [address] Phone: | | | | | | [phone] | [phone] | | | | | | Fax: | Fax: | | | | | | [phone] | [phone] | +--------+--------+ + + + + Encounter Details +--------+---------+ + + + | Date | Type | Department | Care Team | Description | +--------+---------+ + + + | 07/10/ | Office | [facility] | Naina Judd | Essential | | 2019 | Visit | CARDIOLOGY [place] | [address] | hypertension | | | | [address] | [place] | (Primary Dx); Chest | | | | [address] | [place] [address] | pressure; Mixed | | | | [place], [place] | [phone] | hyperlipidemia; | | | | [address] | | Tobacco abuse | | | | [phone] | | | +--------+---------+ + + + [...] and 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 He previously had a normal echo performed at [facility] Dr. Barahona ordered him a stress [...] use. Exercises with and tolerates. Lives in [place] [facility] Medications Prior to Visit Medication Sig [...] with PAC's. low voltage QRS 71 bpm, [place] 122 ms, Q RS 74 ms, QTC 417 ms, tracing personally reviewed by me EK05/11/2019:Normal sinus rhythm, rate 71, [place] 118 ms, QRS 68 ms, QTC 399, borderline carolynn rt [place] interval, LAE, cannot exclude old inferior IL, age undetermined, low voltage QRS , tr [...] pneumonia vaccines, as also increase risk of [place] I made no changes to cardiac medications [...] past surgical history. Problem list. Erika WALKER [facility] Cardiology 07/10/2019 docume ntmarquita in this encounter [...] [address] | | | | | | [place] [address] | | | | | | [phone] | | | | | | | [...]
--- OUTSIDE RECORDS SUMMARY | ~2019-10-12 | XMS | Encounter Summary ---
Demographics + + + | Address | [address] | | | [place] [address] | + + + | Home Phone | | + + + | Preferred Language | Unknown | + + + | Marital Status | | + + + | Anabaptism Affiliation | Unknown | + + + | Race | Unknown | + + + | Ethnic Group | Unknown | + + + Author + + + | Author | [facility] | | | and [place] | + + + | Organization | [facility] | | | [...] Team Providers + +------+ + | Care Staple Cutter Name | Role | Phone | + +------+ + | Lizette Martinez | PCP | | + +------+ + Encounter Details +--------+ + + + + | Date | Type | Department | Care Team | Description | +--------+ + + + + | 09/21/ | Documentati | [facility] | Jair, | | | 2019 | on | GENERAL SURGERY [address] | [address] | | | | | [address] | [address] | | | | | [facility] [place] | [place] [address] | | | | | [address] | [phone] | | | | | [phone] | | | +--------+ + + + [...] documented as of this encounter Progress Notes Marija Mabry, Employee'S Representative - 09/21/2019 9:02 AM PSTRef[facility]. Confirmation received. documented in this encounter Plan of Treatment +--------+---------+ [...] | | | | | [place] [address] | | | | | | [phone] | | | | | | | | +--------+---------+ + + + documented as of this encounter Visit Diagnoses Not on filedocumented in this encounter"
--- OUTSIDE RECORDS SUMMARY | ~2019-10-12 | XMS | Encounter Summary ---
Demographics + + + | Address | [address] | | | [place] [address] | + + + | Home Phone | | + + + | Preferred Language | Unknown | + + + | Marital Status | | + + + | Confucianist Affiliation | Unknown | + + + [...] Team Providers + +------+ + | Care Supervisor Mapping Name | Role | Phone | + [...] [place] | | | | | | [address] | (Fax) | | | | | [phone] | | | +--------+ + + + [...] [address] | | | | | | [place] [address] | | | | | | [phone] | | | | | | | | +--------+---------+ + + + documented as of this encounter Visit Diagnoses Not on filedocumented in this encounter"
--- OUTSIDE RECORDS SUMMARY | ~2019-10-12 | XMS | Encounter Summary ---
Demographics + + + | Address | [address] | | | [place] [address] | + + + | Home Phone | | + + + | Preferred Language | Unknown | + + + | Marital Status | | + + + | Holiness Affiliation | Unknown | + + + | Race | Unknown | + + + | Ethnic Group | Unknown | + + + Author + + + | Author | [facility] | | | and [place] | + + + | Organization | [facility] | | | [...] Team Providers + +------+ + | Care Psychiatric Security Nurse Name | Role | Phone | + [...] + + | 08/26/ | Surgery | [facility] | Phong Tyson, | LAPAROSCOPIC | | 2019 | | [facility] | [address] | COLOSTOMY CREATION | | | | OPERATING RO[address] | [address] | | | | | [address] | [place] [address] | | | | | [place], [place] | [phone] | | | | | [address] | | | | | | [phone] | | | +--------+---------+ + + + [...] Barker MD - 08/30/2019 2:35 PM PST [facility] Service: Hospitalist Physician Discharge Summary Patient ID: Arlene WALKERN: [id number] 1940 78 y.o. Admit date: 08/25/2019 Discharge [...] SNF placemen t. He was accepted at [facility]. Referral to a local oncologist was sent. He will follow up with surgery in 2 weeks. Past Medical History: Past Medical History: Diagnosis Date Hyperlipidemia Hypertension 2004 Tobacco abuse Past Surgical History: Procedure Laterality Date COLOSTOMY N/A 08/26/2019 Procedure: LAPAROSCOPIC COLOSTOMY CREATION; Surgeon: Phong Tyson MD; Location: [facility] MAIN OR OTHER SURGICAL HISTORY Left 1985 ORIF ANKLE FRACTURE OTHER SURGICAL HISTORY Bilateral 2017 CATARACT EXTRACTION SIGMOIDOSCOPY N/A 08/26/2019 Procedure: SIGMOIDOSCOPY FLEXIBLE; Surgeon: Phong Tyson MD; Location: [facility] MAIN OR Discharged Condition: Stable for discharge [...] input(s): ABG Disposition: Follow up: GRIFFIN [place] [id number] [facility] [address] Go on 09/11/2019 You have an appointment at 0930 on 09/11/2019 with Lizette MOYA [address] [address] Phong Tyson MD [address] [place] [id number] Schedule an appointment as soon as possible [...] Gonzalez RN - 08/29/2019 2:04 PM PST [facility] Service: Ostomy Care Consult Note Hospital Day: 4 SUBJECTIVE Patient Summary: Ostomy nurse in for continued teaching. Family at bedside. 08/29/19 2617 Visit Information Visit Type Initial ostomy/fistula assessement [...] of appliance change. Plan is to return [facility] for return [facility]. Patient [facility]. CM has c ontacted patient's PCP and they will work with DME to get his ostomy supplies. Ostomy RX fo rm filled out with patient's specific ostomy appliances and JOSE MARIA has faxed this to the PCP. P joey is to provide patient with enough pouching supplies to last 2 weeks (until his post-op a ppointment) [facility] starter kit ordered with pt's permission # [id number] Thank you for allowing me to participate in the care of this patient. Soledad Berger RN, CWON 08/29/2019 14:04 Jasmin Herrmann MD - 08/29/2019 1:18 PM PSTFormatting of this note might be different from the or iginal. [facility] Service: Hospitalist Progress Note Hospital [...] Rojas 78 y.o. 1940 Med. Record Number: [id number] Date of admission: 08/25/2019 Service(s): Colorectal Surgery [...] nursing note reviewed. Exam conducted with a cartographic aide present. Cardiovascular: Rate and Rhythm: Normal rate. [...] with heme/onc, either Dr Malik here in [facility] or supposedly there is a heme/onc Dr in the [facility] (where they live). HTN BP's remain [...] BMI 28.00 kg/m Physical exam: AOx3 NAD ELEM Heart RRR Lungs CTa Abd SNTND +BS Ostomy has stool output Giuliano Villaseñor DO 08/28/2019 2:50 PM Sree Smith ARN P - 08/28/2019 8:17 AM PST Colorectal Surgery Progress Note Pt. Name/Age/: Arlene Rojas 78 y.o. 1940 Med. Record Number: [id number] Date of admission: 08/25/2019 Service(s): Colorectal Surgery [...] nursing note reviewed. Exam conducted with a cartographic aide present. Cardiovascular: Rate and Rhythm: Normal rate. [...] Encourage ambulation 2. General diet ok 3. livestock feeder consult and teaching AARON Bull 11:50 AM; 08/28/2019 Ayde Randall RN - 08/28/2019 7:53 AM PSTPt refusing waffle mattress, family and pt educated on q 2 turning instead Chart check complete Shdae Larsen RN 08/28/19 @7:53 AM Giuliano Peralta [...] BMI 28.00 kg/m Physical exam: NAD AOx3 ELEM Heart RRR Lungs CTA Abd SNTND +BS [...] BMI 28.00 kg/m Physical exam: AOx3 NAD ELEM Heart RRR Lungs CTA Abd SNTND ostomy [...] Larsen RN 08/26/19 @7:47 AM Valentín Navarro [facility] - 08/25/2019 7:41 PM PSTRx Admission Medication History Note I have reviewed the medication history for appropriate doses obtained by: ED Pharmacist After reviewing the home medication list : I agree with the home medications list. 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 Adjusted SEARCH ENGINE MARKETING SPECIALIST medications according to the environmental field technician note below. - removed lopermaide. Per [...] [address] | | | | | | [place] [address] | | | | | | [phone] | | | | | | | [...] J?MRN: | | | | | | [id number] | | | [id number] | | | riteri | | | [...] | | | St. | | | [place] | | | y | | | [...] | | | St. | | | [place] | | | y H. | | [...] | | | St. | | | [place] | | | y H. | | [...] | | | 1-103a | | | [id number] | | | 41 | | | [...] | >60Comment: GFR <60: | >60 | [facility] | | | GFR | [...] | | | | | | MDRD IDTN traceable | | | | | | equation.Testing | | | | | | performed at [facility], [address] | | | | | | [facility], | | | | | | [place] [address] | | | | + + + + + + + + | Specimen | + + | Blood | + + + + + + + | Performing | Address | City/State/Zipcode | Phone Number | | Organization | | | | + + + + + | [facility] | [address] | [place] [address] | [phone] | + + + + + CBC with Differential (08/30/2019 4:29 AM PST) + + + + + + | Component | Value | Ref Range | Performed | Pathologist | | | | | At | Signature | + + + + + + | WBC | 8.15 | 3.80 - 11.00 | [facility] | | | | | K/uL | [...] 0.04Comment: Testing | 0.00 - 0.10 | [facility] | | | Absolute | performed at [facility], [address] | K/uL | LABORATORY | | | | [address], | | | | | | [place] [address] | | | | + + + + + + + + | Specimen | + + | Blood | + + + + + + + | Performing | Address | City/State/Zipcode | Phone Number | | Organization | | | | + + + + + | [facility] | [address] | [place] [address] | [phone] | + + + + + Phosphorus (08/29/2019 4:53 AM PST) + + + + + + | Component | Value | Ref Range | Performed | Pathologist | | | | | At | Signature | + + + + + + | Phosphorus | 3.0Comment: Testing | 2.3 - 4.8 mg/dL | [facility] | | | | performed at [facility];[address] | | LABORATORY | | | | [address];[place], [place] | | | | | | [address] | | | | + + + + + + + + | Specimen | + + | Blood | + + + + + + + | Performing | Address | City/State/Zipcode | Phone Number | | Organization | | | | + + + + + | [facility] | [address] | [place] [address] | [phone] | + + + + + Magnesium (08/29/2019 4:53 AM PST) + + + + + + | Component | Value | Ref Range | Performed | Pathologist | | | | | At | Signature | + + + + + + | Magnesium | 1.7Comment: Testing | 1.7 - 2.4 mg/dL | [facility] | | | | performed at [facility];[address] | | LABORATORY | | | | [address];[place], [place] | | | | | | [address] | | | | + + + + + + + + | Specimen | + + | Blood | + + + + + + + | Performing | Address | City/State/Zipcode | Phone Number | | Organization | | | | + + + + + | [facility] | [address] [facility] | [place] [address] | [phone] | + + + + + Basic [...] | | | | | performed at [facility] | | | | | | [facility];[place], [place] | | | | | | [address] | | | | + + + + + + + + | Specimen | + + | Blood | + + + + + + + | Performing | Address | City/State/Zipcode | Phone Number | | Organization | | | | + + + + + | [facility] | [address] | [place] [address] | [phone] | + + + + + CBC [...] | | | Absolute | performed at [facility];[address] | K/uL | LABORATORY | | | | [address];[place] | | | | | | [address] | | | | + + + + + + + + | Specimen | + + | Blood | + + + + + + + | Performing | Address | City/State/Zipcode | Phone Number | | Organization | | | | + + + + + | [facility] | [address] | [place] [address] | [phone] | + + + + + POC Glucose (08/28/2019 4:41 PM PST) + + + + + + | Component | Value | Ref Range | Performed | Pathologist | | | | | At | Signature | + + + + + + | Glucose, | 103 (H)Comment: Testing | 65 - 99 mg/dL | [facility] | | | POC | performed at [facility];[address] | | LABORATORY | | | | [address];[place], [place] | | | | | | [address] | | | | + + + + + + + + | Specimen | + + | | + + + + + + + | Performing | Address | City/State/Zipcode | Phone Number | | Organization | | | | + + + + + | [facility] | [address] | [place] [address] | [phone] | + + + + + POC [...] | | | POC | performed at [facility];[address] | | LABORATORY | | | | [address];[place], [place] | | | | | | [address] | | | | + + + + + + + + | Specimen | + + | | + + + + + + + | Performing | Address | City/State/Zipcode | Phone Number | | Organization | | | | + + + + + | [facility] | [address] | [place] [address] | [phone] | + + + + + POC Glucose (08/28/2019 8:48 AM PST) + + + + + + | Component | Value | Ref Range | Performed | Pathologist | | | | | At | Signature | + + + + + + | Glucose, | 98Comment: Testing | 65 - 99 mg/dL | [facility] | | | POC | performed at [facility];[address] | | LABORATORY | | | | [address];[place] | | | | | | [address] | | | | + + + + + + + + | Specimen | + + | | + + + + + + + | Performing | Address | City/State/Zipcode | Phone Number | | Organization | | | | + + + + + | [facility] | [address] | [place] [address] | [phone] | + + + + + Phosphorus (08/28/2019 4:18 AM PST) + + + + + + | Component | Value | Ref Range | Performed | Pathologist | | | | | At | Signature | + + + + + + | Phosphorus | 2.1 (L)Comment: Testing | 2.3 - 4.8 mg/dL | [facility] | | | | performed at L, [address] | | LABORATORY | | | | [address], | | | | | | [place] [address] | | | | + + + + + + + + | Specimen | + + | Blood | + + + + + + + | Performing | Address | City/State/Zipcode | Phone Number | | Organization | | | | + + + + + | [facility] | [address] | [place] [address] | [phone] | + + + + + Magnesium (08/28/2019 4:18 AM PST) + + + + + + | Component | Value | Ref Range | Performed | Pathologist | | | | | At | Signature | + + + + + + | Magnesium | 2.0Comment: Testing | 1.7 - 2.4 mg/dL | [facility] | | | | performed at [facility], [address] | | LABORATORY | | | | [address], | | | | | | [place] [address] | | | | + + + + + + + + | Specimen | + + | Blood | + + + + + + + | Performing | Address | City/State/Zipcode | Phone Number | | Organization | | | | + + + + + | [facility] | [address] | [place] [address] | [phone] | + + + + + Basic [...] | >60Comment: GFR <60: | >60 | [facility] | | | GFR | [...] | | | | | | MDRD [facility] traceable | | | | | | equation.Testing | | | | | | performed at [facility], [address] | | | | | | [facility], | | | | | | [place] [address] | | | | + + + + + + + + | Specimen | + + | Blood | + + + + + + + | Performing | Address | City/State/Zipcode | Phone Number | | Organization | | | | + + + + + | [facility] | [address] | [place] [address] | [phone] | + + + + + CBC [...] | | | Absolute | performed at [facility], [address] | K/uL | LABORATORY | | | | [address], | | | | | | [place] [address] | | | | + + + + + + + + | Specimen | + + | Blood | + + + + + + + | Performing | Address | City/State/Zipcode | Phone Number | | Organization | | | | + + + + + | [facility] | [address] | [place] [address] | [phone] | + + + + + POC Glucose (08/27/2019 8:35 PM PST) + + + + + + | Component | Value | Ref Range | Performed | Pathologist | | | | | At | Signature | + + + + + + | Glucose, | 129 (H)Comment: Testing | 65 - 99 mg/dL | [facility] | | | POC | performed at [facility];[address] | | LABORATORY | | | | [address];[place] | | | | | | [address] | | | | + + + + + + + + | Specimen | + + | | + + + + + + + | Performing | Address | City/State/Zipcode | Phone Number | | Organization | | | | + + + + + | [facility] | [address] | [place] [address] | [phone] | + + + + + POC Glucose (08/27/2019 12:05 PM PST) + + + + + + | Component | Value | Ref Range | Performed | Pathologist | | | | | At | Signature | + + + + + + | Glucose, | 99Comment: Testing | 65 - 99 mg/dL | [facility] | | | POC | performed at [facility];[address] | | LABORATORY | | | | [address];[place], [place] | | | | | | [address] | | | | + + + + + + + + | Specimen | + + | | + + + + + + + | Performing | Address | City/State/Zipcode | Phone Number | | Organization | | | | + + + + + | [facility] | [address] | [place] [address] | [phone] | + + + + + POC Glucose (08/27/2019 8:01 AM PST) + + + + + + | Component | Value | Ref Range | Performed | Pathologist | | | | | At | Signature | + + + + + + | Glucose, | 85Comment: Testing | 65 - 99 mg/dL | [facility] | | | POC | performed at [facility];[address] | | LABORATORY | | | | [address];[place] | | | | | | [address] | | | | + + + + + + + + | Specimen | + + | | + + + + + + + | Performing | Address | City/State/Zipcode | Phone Number | | Organization | | | | + + + + + | [facility] | [address] | [place] [address] | [phone] | + + + + + Phosphorus (08/27/2019 5:10 AM PST) + + + + + + | Component | Value | Ref Range | Performed | Pathologist | | | | | At | Signature | + + + + + + | Phosphorus | 3.8Comment: Testing | 2.3 - 4.8 mg/dL | [facility] | | | | performed at [facility], [address] | | LABORATORY | | | | [address], | | | | | | [place] [address] | | | | + + + + + + + + | Specimen | + + | Blood | + + + + + + + | Performing | Address | City/State/Zipcode | Phone Number | | Organization | | | | + + + + + | [facility] | [address] | [place] [address] | [phone] | + + + + + Magnesium (08/27/2019 5:10 AM PST) + + + + + + | Component | Value | Ref Range | Performed | Pathologist | | | | | At | Signature | + + + + + + | Magnesium | 2.2Comment: Testing | 1.7 - 2.4 mg/dL | [facility] | | | | performed at [facility], [address] | | LABORATORY | | | | [address], | | | | | | [place] [address] | | | | + + + + + + + + | Specimen | + + | Blood | + + + + + + + | Performing | Address | City/State/Zipcode | Phone Number | | Organization | | | | + + + + + | [facility] | [address] | [place] [address] | [phone] | + + + + + Basic [...] | | | | | performed at [facility], [address] | | | | | | [address], | | | | | | [place] [address] | | | | + + + + + + + + | Specimen | + + | Blood | + + + + + + + | Performing | Address | City/State/Zipcode | Phone Number | | Organization | | | | + + + + + | [facility] | [address] | [place] [address] | [phone] | + + + + + CBC [...] at | | | | | | [facility], [address] [facility] | | | | | | [place] | | | | | | [address] | | | | + + + + + + + + | Specimen | + + | Blood | + + + + + + + | Performing | Address | City/State/Zipcode | Phone Number | | Organization | | | | + + + + + | [facility] | [address] | [place] [address] | [phone] | + + + + + POC Glucose (08/27/2019 4:06 AM PST) + + + + + + | Component | Value | Ref Range | Performed | Pathologist | | | | | At | Signature | + + + + + + | Glucose, | 81Comment: Testing | 65 - 99 mg/dL | [facility] | | | POC | performed at [facility];[address] | | LABORATORY | | | | [address];[place], [place] | | | | | | [address] | | | | + + + + + + + + | Specimen | + + | | + + + + + + + | Performing | Address | City/State/Zipcode | Phone Number | | Organization | | | | + + + + + | [facility] | [address] | [place] [address] | [phone] | + + + + + POC [...] | | | POC | performed at [facility];[address] | | LABORATORY | | | | [facility];[place], [place] | | | | | | [address] | | | | + + + + + + + + | Specimen | + + | | + + + + + + + | Performing | Address | City/State/Zipcode | Phone Number | | Organization | | | | + + + + + | [facility] | [address] | [place] [address] | [phone] | + + + + + Surgical [...] | rectum (see [id number]). As part of [facility]' Quality | | | Improvement Program, this [...] surfaceis barker-yellow and lobulated. | | | Shoe Singer sections are submitted in cassette (A1). B. [...] is barker-yellow and | | | lobulated. Shoe Singer sections are submitted incassette (B1). | | [...] component was performed | | | by [facility] [address] (Medical | | | Director: Yenny Young MD; CLIA# [id number]). Professional | | | interpretation [facility] | | | [address] [address] (Medical | | | Director: Kenyon Delacruz M.D.; CLIA#: [id number]). REASON FOR | | | ADDENDUM:Results of [...] | | | preparation) was performed at [facility]. | | | Interpretation was performed at [facility]. | | | Immunohistochemical studies and/or special stains were performed on | | | this case with the appropriate controls, which stain appropriately. | | | These tests were developed and their performance characteristics | | | determined by [facility] and/or [facility]. These tests | | | may have not been cleared or approved by the U.S. Food and Drug | | | Administration. The FDA has determined that suchclearance or | | | approval is not necessary. [facility] and [facility] are certified | | | under the [...] designed to | | | detect V600E ([id number]). Some non-V600E mutations, V600K, V600D, and | [...] | analysis test have been determined by [facility], [address] | | [address] [place], [place],but have not been cleared or approved [...] | | analysis tests were performed at [facility], [address] [place] [address] Av | | | [address] [place] [address] (Manager Access: Gaudencio Lira MD; IA# | | | [id number]). REASON FOR ADDENDUM:This case is addended for the | | | addition of BRAF and KRAS Mutation Analysis results. ADDENDUM | | | PATHOLOGIC DIAGNOSIS:[id number], [id number] BIOPSY: Mutation DETECTED | | | - [...] colorectal cancer. J Clin Oncol 2008; 26(35): 4978-0364. doi: | | | 10.1200/JCO.2008.18.06610. Arnel IG, Alexis M, Boateng M, et al. | | | Wild-type KRAS is required for panitunumab efficacy in patients with | | | metastatic colorectal cancer. J Clin Oncol 2008; 26:6249-6401. | | | doi:10.1200/JCO.2007.14.33150. Gilda PATTON, Cheli MENDOZA, Ean A, et | | | al. Extended TAO mutations and anti-EGFR monoclonal antibody survival | | | benefit in metastatic colorectal cancer: a meta-analysis of | | | randomized, controlled trials.Annals of Oncol 2014; 26(1): 13-21. doi: | | | 10.1093/annonc/crg657 4. Navi HERMOSILLO, Melissa RODRIGUEZ. KRAS | | | Mutation: Should We Test for It, and Does It Matter? J Clin Oncol | | | 2013; 31:3920-7630. doi: 10.1200/JCO.2012.43.0454 ADDENDUM CLINICAL | | | [...] | | paraffin tissue block B1, numbered [id number], belonging to patient | | | ARLENE ROJAS. Diagnostician: Nicanor Elias | | | DOPathologistDiagnostician: Kenyon Delacruz | | | MDPathologistDiagnostician: Prieto Brito MT([facility]) | | | MBPathologistDiagnostician: Demi Bearden MD [...] | | LABORATORY | | | | [address]vd;[place] [address] | | | | + + + + + + + + | Specimen | + + | Blood | + + + + + + + | Performing | Address | City/State/Zipcode | Phone Number | | Organization | | | | + + + + + | [facility] | [address] | [place] [address] | [phone] | + + + + + Pro[facility] INR (08/26/2019 4:25 AM PST) + + + + + + | Component | Value | Ref Range | Performed | Pathologist | | | | | At | Signature | + + + + + + | INR | 1.1Comment: REFERENCE | | [facility] | | | | RANGE:0.9 - 1.2 [...] | | | | | performed at [facility];[address] | | | | | | [facility];[place], [place] | | | | | | [address] | | | | + + + + + + + + | Specimen | + + | Blood | + + + + + + + | Performing | Address | City/State/Zipcode | Phone Number | | Organization | | | | + + + + + | [facility] | [address] | [place] [address] | [phone] | + + + + + Ferritin [...] | | | | | [place] [address] | | | | + + + + + + + + | Specimen | + + | Blood | + + + + + + + | Performing | Address | City/State/Zipcode | Phone Number | | Organization | | | | + + + + + | [facility] | [address] | [place] [address] | [phone] | + + + + + Iron [...] | | | | | [place] [address] | | | | + + + + + + + + | Specimen | + + | Blood | + + + + + + + | Performing | Address | City/State/Zipcode | Phone Number | | Organization | | | | + + + + + | [facility] | [address] | [place] [address] | [phone] | + + + + + CBC [...] [facility] | | | | performed at [facility], [address] | | LABORATORY | | | | [facility], | | | | | | [place] [address] | | | | + + + + + + + + | Specimen | + + | Blood | + + + + + + + | Performing | Address | City/State/Zipcode | Phone Number | | Organization | | | | + + + + + | [facility] | [address] | [place] [address] | [phone] | + + + + + Basic [...] | >60Comment: GFR <60: | >60 | [facility] | | | GFR | [...] | | | | | | MDRD [facility] traceable | | | | | | equation.Testing | | | | | | performed at [facility], [address] | | | | | | [facility], | | | | | | [place] [address] | | | | + + + + + + + + | Specimen | + + | Blood | + + + + + + + | Performing | Address | City/State/Zipcode | Phone Number | | Organization | | | | + + + + + | [facility] | [address] | [place] [address] | [phone] | + + + + + Urinalysis [...] - 1.030 | [facility] | | | [place], | | | LABORATORY | | | [...] UA | NONE SEENComment: | NONE | [facility] | | | | Testing performed at | | LABORATORY | | | | [facility];[address];[place] [address] | | | | + + + [...] | + + + + + | [facility] | [address] | [place] [address] | [phone] | + + + + + Comprehensive [...] | >60Comment: GFR <60: | >60 | [facility] | | | GFR | [...] | | | | | performed at [facility];88 | | | | | | [facility];[place], [place] | | | | | | [address] | | | | + + + + + + + + | Specimen | + + | Blood | + + + + + + + | Performing | Address | City/State/Zipcode | Phone Number | | Organization | | | | + + + + + | [facility] | [address] | [place] [address] | [phone] | + + + + + CBC [...] | | | Absolute | performed at [facility];888 | K/uL | LABORATORY | | | | Herbert Chacko;[place] | | | | | | [address] | | | | + + + + + + + + | Specimen | + + | Blood | + + + + + + + | Performing | Address | City/State/Zipcode | Phone Number | | Organization | | | | + + + + + | [facility] | [address] | [place] [address] | [phone] | + + + + + documented [...]
--- OUTSIDE RECORDS SUMMARY | ~2019-10-12 | XMS | Clinical Summary ---
Demographics + + + | Address | [address] | | | [place] [address] | + + + | Home Phone | | + + + | Preferred Language | Unknown | + + + | Marital Status | Unknown | + + + | Restorationism Affiliation | Unknown | + + + | Race | Unknown | + + + | Ethnic Group | Unknown | + + + Author + + + | Author | [facility] (Historical as of | | | 05-20-19) | + + + | Organization | [facility] (Historical as of | | | 05-20-19) [...] Team Providers + +------+ + | Care Unit Tender Name | Role | Phone | + [...] | | + +--------+ +------+-------+ + | /[facility] | YELLOW | [id number] | | | | | PLANS | HAWK | | | | | + +--------+ +------+-------+ + | MEDICARE | MEDICA | [id number] | | | [address] | | | RE | | | | [place] [address] | | | IP-OP | | | [...] | Self [birth year] Home: | [address] | | | al/Fam | | 1941 | [phone] [place] [address] | | | tunde | | | [address] | | + +--------+ +--------+ + +
--- OUTSIDE RECORDS SUMMARY | ~2019-10-12 | XMS | Encounter Summary ---
Demographics + + + | Address | [address] | | | [place] [address] | + + + | Home Phone | | + + + | Preferred Language | Unknown | + + + | Marital Status | | + + + | Latter Day Affiliation | Unknown | + + + | Race | Unknown | + + + | Ethnic Group | Unknown | + + + Author + + + | Author | [facility] | | | and [place] | + + + | Organization | [facility] | | | [...] Team Providers + +------+ + | Care Soda Fountain Operator Name | Role | Phone | [...] | / Cardiology | done sah | [address] | DICTATING TRANSCRIBING MACHINE SERVICER [address] | | | | | Procedures | SARAH BLACKMON | LISETH COLVIN | | | | | OFFICE VISIT | [place] | [address] | | | | | REGULAR | [place] [address] | [facility] | | | | | | Phone: | [address] Phone: | | | | | | [phone] | [phone] | | | | | | Fax: | Fax: | | | | | | [phone] | [phone] | +--------+--------+ + + + + Encounter Details +--------+---------+ + + + | Date | Type | Department | Care Team | Description | +--------+---------+ + + + | 07/10/ | Office | [facility] | Naina Judd | Essential | | 2019 | Visit | CARDIOLOGY [place] | [address]RIFF[address] | hypertension | | | | [address] | LISETH DAMON F | (Primary Dx); Chest | | | | [address] | [place] [address] | pressure; Mixed | | | | [place], [place] | [phone] | hyperlipidemia; | | | | [address] | | Tobacco abuse | | | | [phone] | | | +--------+---------+ + + + [...] and 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 He previously had a normal echo performed at [facility] Dr. Barahona ordered him a stress test. [...] use. Exercises with and tolerates. Lives in [facility] Medications Prior to Visit Medication Sig [...] with PAC's. low voltage QRS 71 bpm, NM 122 ms, Q RS 74 ms, QTC 417 ms, tracing personally reviewed by me EK05/11/2019:Normal sinus rhythm, rate 71, NM 118 ms, QRS 68 ms, QTC 399, borderline carolynn rt NM interval, LAE, cannot exclude old inferior NE, age undetermined, low voltage QRS , tr [...] pneumonia vaccines, as also increase risk of NE I made no changes to cardiac medications [...] past surgical history. Problem list. Erika WALKER [facility] Cardiology 07/10/2019 docume ntmarquita in this [...] [address] | | | | | | [place] [address] | | | | | | [phone] | | | | | | | [...]
--- OUTSIDE RECORDS SUMMARY | ~2019-10-12 | XMS | Encounter Summary ---
Demographics + + + | Address | [address] | | | [place] [address] | + + + | Home Phone | | + + + | Preferred Language | Unknown | + + + | Marital Status | | + + + | Anabaptism Affiliation | Unknown | + + + | Race | Unknown | + + + | Ethnic Group | Unknown | + + + Author + + + | Author | [facility] | | | and [place] | + + + | Organization | [facility] | | [...] Team Providers + +------+ + | Care House Rn Name | Role | Phone | + [...] Services | Surgical | | Pj, | Emeterio Godfrey, | | | Required | Critical Care | Adenocarcino | Paras Leach, | [address] | | | | | ma of | MD [address] | | | | | rectosigmoid | [address] | [place], [place] | | | | | junction | [place], | [address] | | | | | ([facility]) | [place] [address] | Phone: | | | | | | Phone: | [phone] | | | | | | [phone] | Fax: | | | | | | Fax: | [phone] | | | | | | [phone] | | +--------+ + + + + [...] | Required | Oncology | Adenocarcino | LEAD FRONT END DEVELOPER [address] | Paras Leach MD | | | | | ma of | [address] | [address] | | | | | rectosigmoid | [address] | [address] [place] | | | | | junction | [place], [place] | [place], [place] | | | | | ([facility]) | [address] | [address] Phone: | | | | | | Phone: | [phone] | | | | | | [phone] | Fax: | | | | | | Fax: | [phone] | | | | | | [phone] | | + + + + + + + Encounter Details +--------+ + + + + | Date | Type | Department | Care Team | Description | +--------+ + + + + | 09/14/ | Hospital | [facility] | Pj, | Adenocarcinoma of | | 2019 | Encounter | [facility] | Paras Leach MD [address] | rectosigmoid | | | | ONCOLOGY CLINIC [address] [place] | junction (HCC) | | | | [address] [place] | [place] [address] | | | | | [place] [address] | [phone] | | | | | [phone] | | | +--------+ + + + [...] | | | | | [place] [address] | | | | | | [phone] | | | | | | | [...]
--- OUTSIDE RECORDS SUMMARY | ~2019-10-12 | XMS | Encounter Summary ---
Demographics + + + | Address | [address] | | | [place] [address] | + + + | Home Phone | | + + + | Preferred Language | Unknown | + + + | Marital Status | | + + + | Hinduism Affiliation | Unknown | + + + [...] Team Providers + +------+ + | Care Human Resource Statistician Name | Role | Phone | + [...] | | Required | | Adenocarcino | NATURAL GAS TRADER [address] | [address] | | | | | ma of | [address] | [place], | | | | | rectosigmoid | [address] | [place] [address] | | | | | junction | [place], [place] | Phone: | | | | | ([facility]) | [address] | [phone] | | | | | | Phone: | Fax: | | | | | | [phone] | [phone] | | | | | | Fax: | | | | | | | [phone] | | + + + + + [...] | | | Surgery / | | [address] | | | | General | | Charlee Santamaria | [address] | | | | Surgery | | Vish, | [place], [place] | | | | | | [place] | [address] | | | | | | [address] | Phone: | | | | | | Phone: | [phone] | | | | | | [phone] | Fax: | | | | | | Fax: | [phone] | | | | | | [phone] | | + +--------+ + + + + Encounter Details +--------+---------+ + + + | Date | Type | Department | Care Team | Description | +--------+---------+ + + + | 09/20/ | Office | [facility] | Arabellacegabby, | Adenocarcinoma of | | 2019 | Visit | GENERAL SURGERY [address] | [address] | rectosigmoid | | | | [address] | [address] | junction (HCC) | | | | [place], [place] | [place] [address] | (Primary Dx) | | | | [address] | [phone] | | | | | [phone] | | | +--------+---------+ + + + [...] Exam Wound closed yes Wound clean yes [place]/Sutures no Hernia noted no Wound drainage no [...] [address] | | | | | | [facility] | | | | | | [place] [address] | | | | | | [phone] | | | | | | | [...]
--- OUTSIDE RECORDS SUMMARY | ~2019-10-12 | XMS | Encounter Summary ---
Demographics + + + | Address | [address] | | | [place] [address] | + + + | Home Phone | | + + + | Preferred Language | Unknown | + + + | Marital Status | | + + + | Roman Catholic Affiliation | Unknown | + + + [...] Team Providers + +------+ + | Care Sped Teacher Name | Role | Phone | + +------+ + | Lizette Martinez | PCP | | + +------+ + Reason for Visit Auth/Cert +--------+--------+ + + + + | [...] + + | 08/26/ | Anesthesia | [facility] | Jusdon Mcmullen | | | 2019 | Event [facility] | DEANNA Toure [address] | | | | | OPERATING ROOM [address] | [address] | | | | | [address] | [place] [address] | | | | | [place], [place] | [phone] | | | | | [address] | | | | | | [phone] | | | +--------+ + + + + Anesthesia Record + + + + + | Procedure Name | Responsible | Anesthesia Start | Anesthesia Stop Time | | | Anesthesiologist | Time | | + + + + + | LAPAROSCOPIC | Judson Toure | 08/26/19 1126 | 08/26/19 1316 | | COLOSTOMY CREATION | DEANNA Mcmullen | | | | (N/A Abdomen) | | | | + + + + + +----+---+ + + | Da | T | Event | Comment | | te | i | | | | | m | | | | | e | | | +----+---+ + + | 11 | 1 | An Start | Reassessment prior to anesthesia induction/procedure. | | /2 | 1 | | | | 3/ | 2 | | | | 20 | 6 | | | | 19 | | | | +----+---+ + + | | 1 | Antibiotic | | | | 1 | Given | | | | 3 | | | | | 1 | | | +----+---+ + + | | 1 | An | | | | 1 | Induction | | | | 3 | | | | | 1 | | | +----+---+ + + | | 1 | An | | | | 1 | Intubation | | | | 3 | | | | | 3 | | | +----+---+ + + | | 1 | Anesthesia | | | | 1 | Ready | | | | 3 | | | | | 5 | | | +----+---+ + + | | 1 | First | | | | 2 | Inc/Proc St | | | | 0 | | | | | 7 | | | +----+---+ + + | | 1 | Extubation/ | | | | 3 | Airway LDA | | | | 0 | Removal | | | | 9 | | | +----+---+ + + | | 1 | an stop | | | | 3 | data | | | | 1 | | | | | 2 | | | +----+---+ + + | | 1 | An Stop | Patient handed off to recovery nurse. | | | 1 | | | | | 6 | | | +----+---+ + + +------+ | Meds | +------+ + + + | Name | Total | + + + | fentaNYL | 100 mcg | + + + | lidocaine 2% | 100 mg | + + + | rocuronium | 50 mg | + + + | dexamethasone | 8 mg | + + + | ondansetron | 4 mg | + + + | ketorolac | 15 mg | + + + | phenylephrine | 200 mcg | + + + | neostigmine | 5 mg | + + + | glycopyrrolate | 0.8 mg | + + + | ciprofloxacin in dextrose (CIPRO) | 400 mg | | IVPB 400 mg | | + + + | metroNIDAZOLE in saline (FLAGYL) | 500 mg | | IVPB 500 mg | | + + + | etomidate | 12 mg | + + + | phenylephrine | 1,710 mcg | + + + | balanced electrolytes in water | 800 mL | | (PLASMALYTE-148/NORMOSOL-R) | | | infusion | | + + + + + | Name | + + | N2O Flow Rate (L/Min) | + + | O2 Flow Rate (L/Min) | + + | Insp O2 | + + | Exp N2O | + + | Exp SEV | + + | Air Flow Rate (L/Min) | + + + + | No blood administrations on file. | + + +--------+ + + + | Type | Details | Placement | Removal | +--------+ + + + | Wound | 08/26/19; 1233; Incision; | 08/26/19 1233 by | | | | abdomen; colostomy | Zoë Gonzalez RN | | +--------+ + + + | Colost | 08/26/19; 1309; left | 08/26/19 1309 by | | | adrian | | Carline Corea RN | | +--------+ + + + | Periph | 08/25/19; 1818; Left; Forearm; 20 | 08/25/191818 by | 08/30/191625 by | | karma | gauge; Hematology, Chemistry, | Kristen Jara, | Florence Mohamud RN | | IV | Coagulation; no longer indicated; | RN | | | | 08/30/19; 1626 | | | +--------+ + + + | Urethr | 08/26/19; 1130; indicated due to | 08/26/19 1130 by | 08/26/19 1336 by | | al | specific surgical procedure; All | Zoë Gonzalez RN | Carline Corea RN | | Cathet | elements; All elements; All | | | | er | elements; latex; 16; None; 1; 10; | | | | | 10; none; other (see comments) | | | | | (Pt under general anes); leg bag | | | | | to dependent drainage; urethral | | | | | catheter removed, tubing intact, | | | | | per protocol/policy; short term | | | | | use; 08/26/19; 1336 | | | +--------+ + + + | Airway | Placement Date: 08/26/19; | 08/26/19 1133 by | 08/26/19 1312 by | | | Placement Time: 1133 (created via | Judson Toure | Judson Toure | | | procedure documentation); Mask | DEANNA Mcmullen | DEANNA Mcmullen | | | Ventilation: EZ; Airway Grade: 1; | | | | | Successful Technique: Schilling; | | | | | Laryngoscope Blade Size: 2; | | | | | Attempts: 1; Airway Type: | | | | | endotracheal; Size: 7.5; Airway | | | | | Tube Secured At: 21; Trauma: | | | | | none; Placement Check: exhaled | | | | | CO2 detection device, bilateral | | | | | chest rise, breath sounds equal | | | | | bilaterally; Removal Date: | | | | | 08/26/19; Removal Time: 1312 | | | +--------+ + + + | NG/OG | 08/26/19; 1140 (created via | 08/26/19 1140 by | 08/26/19 1320 by | | | procedure documentation); | Judson Toure | Carline Corea RN | | | orogastric; 18; center mouth; | DEANNA Mcmullen | | | | other (see comments); stomach; | | | | | gastric decompression; 08/26/19; | | | | | 1320 | | | +--------+ + + + documented in this encounter Social History + + + +--------+------+ | [...] [address] | | | | | | [place] [address] | | | | | | [phone] | | | | | | | [...] + + documented in this encounter Results NG/OG (08/26/2019 11:53 AM PST) + + [...] | documentation. | | + + + documented in this encounter Visit Diagnoses Not on filedocumented in this encounter Administered Medications + + + +------+------+------+ | Medication Order | MAR | Action | Dose | Rate | Site | | | Action | Date | | | | + + + +------+------+------+ | balanced electrolytes in water | Continue [...] | | | | + + + +------+------+------+ +---------+ +---+ +---+ | New Bag | 08/26/20 | | 30 mL/hr | | | | 19 9:00 | | | | | | AM PST | | | | +---------+ +---+ +---+ +---+---+ | | | +---+---+ + +-------+ +--------+---+---+ | ciprofloxacin in dextrose | Given | 08/26/20 | 400 mg | | | | (CIPRO) IVPB 400 mg 400 mg, | | 19 11:31 | | | | | Intravenous, Administer over 1 | | AM PST | | | | | Hours, ONCE, 08/26/19 at | | | | | | | 1000, For 1 dose, Pre-op, | | | | | | | Indications: preop | | | | | | + +-------+ +--------+---+---+ +---+---+ | | | +---+---+ + +-------+ +------+---+---+ | dexamethasone (DECADRON) 4 | Given | 08/26/20 | 8 mg | | | | mg/mL injection Intravenous, | | 19 12:55 | | | | | PRN, Starting 08/26/19 at | | PM PST | | | | | 1255, Anesthesia Intra-op | | | | | | + +-------+ +------+---+---+ +---+---+ | | | +---+---+ + +-------+ +-------+---+---+ | etomidate (AMIDATE) injection | Given | 08/26/20 | 12 mg | | | | Intravenous, PRN, Starting Sat | | 19 11:31 | | | | | 08/26/19 at 1131, Anesthesia | | AM PST | | | | | Intra-op | | | | | | + +-------+ +-------+---+---+ +---+---+ | | | +---+---+ + +-------+ +--------+---+---+ | fentaNYL (PF) injection | Given | 08/26/20 | 50 mcg | | | | Intravenous, PRN, Starting Sat | | 19 1:07 | | | | | 08/26/19 at 1214, Anesthesia | | PM PST | | | | | Intra-op | | | | | | + +-------+ +--------+---+---+ +-------+ +--------+---+---+ | Given | 08/26/20 | 50 mcg | | | | | 19 12:14 | | | | | | PM PST | | | | +-------+ +--------+---+---+ +---+---+ | | | +---+---+ + +-------+ +--------+---+---+ | glycopyrrolate (ROBINUL) | Given | 08/26/20 | 0.8 mg | | | | injection Intravenous, PRN, | | 19 1:05 | | | | | Starting 08/26/19 at 1305, | | PM PST | | | | | Anesthesia Intra-op | | | | | | + +-------+ +--------+---+---+ +---+---+ | | | +---+---+ + +-------+ +-------+---+---+ | ketorolac (TORADOL) injection | Given | 08/26/20 | 15 mg | | | | Intravenous, PRN, Starting Sat | | 19 12:55 | | | | | 08/26/19 at 1255, Anesthesia | | PM PST | | | | | Intra-op | | | | | | + +-------+ +-------+---+---+ +---+---+ | | | +---+---+ + +-------+ +--------+---+---+ | lidocaine (PF) 2% injection | Given | 08/26/20 | 100 mg | | | | Intravenous, PRN, Starting Sat | | 19 11:31 | | | | | 08/26/19 at 1131, Anesthesia | | AM PST | | | | | Intra-op | | | | | | + +-------+ +--------+---+---+ +---+---+ | | | +---+---+ + +-------+ +--------+---+---+ | metroNIDAZOLE in saline | Given | 08/26/20 | 500 mg | | | | (FLAGYL) IVPB 500 mg 500 mg, | | 19 11:40 | | | | | Intravenous, Administer over 1 | | AM PST | | | | | Hours, ONCE, 08/26/19 at | | | | | | | 1000, For 1 dose, Do not | | | | | | | refrigerate., Pre-op, | | | | | | | Indications: preop | | | | | | + +-------+ +--------+---+---+ +---+---+ | | | +---+---+ + +-------+ +------+---+---+ | neostigmine (BLOXIVERZ) 1 mg/mL | Given | 08/26/20 | 5 mg | | | | injection Intravenous, PRN, | | 19 1:05 | | | | | Starting 08/26/19 at 1305, | | PM PST | | | | | Anesthesia Intra-op | | | | | | + +-------+ +------+---+---+ +---+---+ | | | +---+---+ + +-------+ +------+---+---+ | ondansetron (ZOFRAN) injection | Given | 08/26/20 | 4 mg | | | | Intravenous, PRN, Starting Sat | | 19 12:55 | | | | | 08/26/19 at 1255, Anesthesia | | PM PST | | | | | Intra-op | | | | | | + +-------+ +------+---+---+ +---+---+ | | | +---+---+ + +-------+ +---------+---+---+ | phenylephrine (SARAH-SYNEPHRINE, | Given | 08/26/20 | 200 mcg | | | | VAZCULEP) 10 mg per mL injection | | 19 11:42 | | | | | Intravenous, PRN, Starting Sat | | AM PST | | | | | 08/26/19 at 1142, Anesthesia | | | | | | | Intra-op | | | | | | + +-------+ +---------+---+---+ +---+---+ | | | +---+---+ + + + +---------+-------+---+ | phenylephrine (SARAH-SYNEPHRINE, | Rate/Dos | 08/26/20 | 20 | 0.1 | | | VAZCULEP) 10 mg/mL injection | e Change | 19 12:45 | mcg/min | mL/hr | | | Intravenous, CONTINUOUS PRN, | | PM PST | | | | | Starting 08/26/19 at 1141, | | | | | | | Anesthesia Intra-op | | | | | | + + + +---------+-------+---+ + + +---------+-------+---+ | Rate/Dose Change | 08/26/20 | 15 | 0.1 | | | | 19 12:14 | mcg/min | mL/hr | | | | PM PST | | | | + + +---------+-------+---+ | New Bag | 08/26/20 | 25 | 0.2 | | | | 19 11:41 | mcg/min | mL/hr | | | | AM PST | | | | + + +---------+-------+---+ +---+---+ | | | +---+---+ + +-------+ +-------+---+---+ | rocuronium (ZEMURON) injection | Given | 08/26/20 | 50 mg | | | | Intravenous, PRN, Starting Sat | | 19 11:31 | | | | | 08/26/19 at 1131, Anesthesia | | AM PST | | | | | Intra-op | | | | | | + +-------+ +-------+---+---+ +---+---+ | | | +---+---+ documented in this encounter"
--- OUTSIDE RECORDS SUMMARY | ~2019-10-12 | XMS | Encounter Summary ---
Demographics + + + | Address | [address] | | | [place] [address] | + + + | Home Phone [...] Team Providers + +------+ + | Care Gem Stone Cutter Name | Role | Phone | + +------+ + | Lizette MartinezP | PCP | | + +------+ + Reason for Referral Evaluate & Treat (Urgent) + + + [...] | Oncology / | | Sree, | Pj | | | Required | Oncology | Adenocarcino | [address] | Paras Leach MD | | | | | ma of | [address] | [address] | | | | | rectosigmoid | [address] | [facility] | | | | | junction | [place] | [place] | | | | | (HCC) | [address] | [address] Phone: | | | | | | Phone: | [phone] | | | | | | [phone] | Fax: | | | | | | Fax: | [phone] | | | | | | [phone] | | + + + + + + + Encounter Details +--------+ + + + + | Date | Type | Department | Care Team | Description | +--------+ + + + + | 09/05/ | Orders Only | [facility] | Alva See | Adenocarcinoma of | | 2019 | | GENERAL SURGERY [address] | R, RN | rectosigmoid | | | | [address] | | junction (HCC) | | | | [place] | | (Primary Dx) | | | | [address] | | | | | | [phone] | | | +--------+ + + + [...] [address] | | | | | | [place] [address] | | | | | | [phone] | | | | | | | | +--------+---------+ + + + + + +--------+ + + | Name | Type | Priori | Associated Diagnoses | Order Schedule | | | | ty | | | + + +--------+ + + | Ambulatory referral | Outpatient | [facility] | Adenocarcinoma of | Ordered: 09/05/2019 | | to Hematology / | Referral | | rectosigmoid | | | Oncology | | | junction (HCC) | | + + +--------+ + + documented as of this encounter Visit Diagnoses + + | Diagnosis | + + | 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
--- OUTSIDE RECORDS SUMMARY | ~2019-10-12 | XMS | Encounter Summary ---
Demographics + + + | Address | [address] | | | [place] [address] | + + + | Home Phone | | + + + | Preferred Language | Unknown | + + + | Marital Status | | + + + | Faith Affiliation | Unknown | + + + | Race | Unknown | + + + | Ethnic Group | Unknown | + + + Author + + + | Author | [facility] | | | and [place] | + + + | Organization | [facility] | | [...] Team Providers + +------+ + | Care Polishing Wheel Repairer Name | Role | Phone | + [...] + + | 09/05/ | Navigation | [facility] | Alva See | | | 2019 | Services | HEMATOLOGY AND | JAIME Persaud | | | | | ONCOLOGY [address] | | | | | | [address] | | | | | | [place] | | | | | | [address] | | | | | | [phone] | | | +--------+ + + + [...] Alva Cross, RN - 09/05/2019 10:11 AM [facility] has been asked by Cristian Adam to refer pt to local oncologist near his home in [place], [place]. Referral entered for Dr Paras crowell, but referral must come from pcp due to insurance requirement. I placed call to pc p's office (Lizette Martinez) and left voicemail for patient career specialist, Nanda self need for urgent referral due [...] | | | | | | [facility] [address] | | | | | | [place] [address] | | | | | | [phone] | | | | | | | | +--------+---------+ + + + documented as of this encounter Visit Diagnoses Not on filedocumented in this encounter"
--- OUTSIDE RECORDS SUMMARY | ~2019-10-12 | XMS | Encounter Summary ---
Demographics + + + | Address | [address] | | | [place] [address] | + + + | Home Phone | | + + + | Preferred Language | Unknown | + + + | Marital Status | | + + + | Mormon Affiliation | Unknown | + + + | Race | Unknown | + + + | Ethnic Group | Unknown | + + + Author + + + | Author | [facility] | | | and [place] | + + + | Organization | [facility] | | [...] Team Providers + +------+ + | Care Vice President Of Talent Management Name | Role | Phone | + +------+ + | Lizette Martinez | PCP | | + +------+ + Encounter Details +--------+ + + + + | Date | Type | Department | Care Team | Description | +--------+ + + + + | 09/05/ | Documentati | [facility] | Evelyne Gonzalez, | | | 2019 | on | GENERAL SURGERY [address] | Manager Mission | | | | | [address] | | | | | | [place] | | | | | | [id number] | | | | | | [phone] | | | +--------+ + + + [...] of this encounter Progress Notes Evelyne Gonzalez Manager Mission - 09/05/2019 10:45 AM PSTPertinent medical records [...] [address] | | | | | | [place] [address] | | | | | | [phone] | | | | | | | | +--------+---------+ + + + documented as of this encounter Visit Diagnoses Not on filedocumented in this encounter"
--- OUTSIDE RECORDS SUMMARY | ~2019-10-12 | XMS | Encounter Summary ---
Demographics + + + | Address | [address] | | | [place] [address] | + + + | Home Phone [...] Team Providers + +------+ + | Care Auctioneer Art Name | Role | Phone | + +------+ + | Lizette Martinez | PCP | | + +------+ + Encounter Details +--------+ + + + + | Date | Type | Department | Care Team | Description | +--------+ + + + + | 09/14/ | Abstract | [facility] | Miley Wright, | | | 2018 | | MED CTR MED[facility] | REGISTERED NURSE SURGICAL SERVICES | | | | | [facility] CLIN[facility] [address] | | | | | | [address] | | | | | | [place] [address] | | | | | | [phone] | | | +--------+ + + + [...] [address] | | | | | | [place] [address] | | | | | | [phone] | | | | | | | | +--------+---------+ + + + documented as of this encounter Visit Diagnoses Not on filedocumented in this encounter"
--- OUTSIDE RECORDS SUMMARY | ~2019-10-12 | XMS | Clinical Summary ---
Demographics + + + | Address | [address] | | | [place] [address] | + + + | Home Phone | | + + + | Preferred Language | Unknown | + + + | Marital Status | Unknown | + + + | Judaism Affiliation | Unknown | + + + | Race | Unknown | + + + | Ethnic Group | Unknown | + + + Author + + + | Author | [facility] (Historical as of | | | 05-20-19) | + + + | Organization | [facility] (Historical as of | | | 05-20-19) [...] Team Providers + +------+ + | Care Cremator Name | Role | Phone | + [...] | | + +--------+ +------+-------+ + | /[facility] | YELLOW | [id number] | | | | | PLANS | [place]WK | | | | | + +--------+ +------+-------+ + | MEDICARE | MEDICA | [id number] | | | [address] | | | RE | | | | [place] [address] | | | IP-OP | | | [...] | Self [birth year] Home: | [address] | | | al/Fam | | 1941 | [phone] [place] [address] | | | tunde | | | [phone] | | + +--------+ +--------+ + +
--- OUTSIDE RECORDS SUMMARY | ~2019-10-12 | XMS | Encounter Summary ---
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 [place] [place] | [place] [address] | | | | | [address] | [phone] | | | | | [phone] | | | +--------+ + + + [...] of this encounter Progress Notes Marija Mabry, Incinerator Attendant - 09/21/2019 9:02 AM PSTReferral to [facility] are sent via [facility]. Confirmation received. [...] | | | | | [place] [address] | | | | | | [phone] | | | | | | | | +--------+---------+ + + + documented as of this encounter Visit Diagnoses Not on filedocumented in this encounter"
--- OUTSIDE RECORDS SUMMARY | ~2019-10-12 | XMS | Encounter Summary ---
Demographics + + + | Address | [address] | | | [place] [address] | + + + | Home Phone | | + + + | Preferred Language | Unknown | + + + | Marital Status | | + + + | Synagogue Affiliation | Unknown | + + + | Race | Unknown | + + + | Ethnic Group | Unknown | + + + Author + + + | Author | [facility] | | | and [place] | + + + | Organization | [facility] | | | [...] Team Providers + +------+ + | Care Managing Broker Name | Role | Phone | + [...] [place] | | | | | | [address] | (Fax) | | | | | [phone] | | | +--------+ + + + [...] [address] | | | | | | [place] [address] | | | | | | [phone] | | | | | | | | +--------+---------+ + + + documented as of this encounter Visit Diagnoses Not on filedocumented in this encounter"
--- OUTSIDE RECORDS SUMMARY | ~2019-10-12 | XMS | Encounter Summary ---
Demographics + + + | Address | [address] | | | [place] [address] | + + + | Home Phone | | + + + | Preferred Language | Unknown | + + + | Marital Status | | + + + | Confucianism Affiliation | Unknown | + + + | Race | Unknown | + + + | Ethnic Group | Unknown | + + + Author + + + | Author | [facility] | | | and [place] | + + + | Organization | [facility] | | | [...] Team Providers + +------+ + | Care Operator Command Support Systems Name | Role | Phone | + +------+ + | Lizette Martinez | PCP | | + +------+ + Encounter Details +--------+ + + + + | Date | Type | Department | Care Team | Description | +--------+ + + + + | 09/21/ | Documentati | [facility] | Jair, | | | 2019 | on | GENERAL SURGERY [address] | [address] | | | | | [address] | [address] | | | | | [facility] [place] | [place] [address] | | | | | [address] | [phone] | | | | | [phone] | | | +--------+ + + + [...] of this encounter Progress Notes Marija Mabry, Dinkey Engineer - 09/21/2019 9:02 AM PSTReferral to [facility]. Confirmation received. [...] | | | | | [place] [address] | | | | | | [phone] | | | | | | | | +--------+---------+ + + + documented as of this encounter Visit Diagnoses Not on filedocumented in this encounter"
--- OUTSIDE RECORDS SUMMARY | ~2019-10-12 | XMS | Encounter Summary ---
Demographics + + + | Address | [address] | | | [place] [address] | + + + | Home Phone [...] Team Providers + +------+ + | Care Shorthand Reporter Name | Role | Phone | + [...] Trung AYALA | | | | | [phone] | [place] [address] | | +--------+ + + + + [...] [address] | | | | | | [place] [address] | | | | | | [phone] | | | | | | | [...]
--- OUTSIDE RECORDS SUMMARY | ~2019-10-12 | XMS | Encounter Summary ---
Demographics + + + | Address | [address] | | | [place] [address] | + + + | Home Phone [...] Team Providers + +------+ + | Care Wire Bender Hand Name | Role | Phone | + [...] [place] | | | | | | [address] | | | | | | [phone] | | | +--------+ + + + [...] | | | | | [place] [address] | | | | | | [phone] | | | | | | | [...] 0.67 m/s MV | | | Dec [place]: 1.81 m/s2 MV DecT: 317.65 ms MV E Emanuel: 0.57 m/s | | | MV E/A Ratio: 0.85 E/E' Sept: 11.69 E' Lat: 0.08 m/s E' | | | Sept: 0.04 m/s RAP: 5 mmHg RV S': 0.12 m/s RVSP: 25.91 | | | mmHg TR maxP.91 mmHg TR Vmax: 2.28 m/s Production Line Mechanic: | | | Authenticated by: Cici Abraham [...] mlLAESV Index (A-L): 24.25 ml/m2LAAs A2C: 14.49 [id number] A-L A2C: 33.91 | | mlLAESV MOD A2C: 32.12 mlLALs A2C: 5.25 cmLAAs A4C: 19.79 [id number] A-L A4C: | | 58.12 mlLAESV MOD A4C: 57.48 mlLALs A4C: 5.72 cmRAAs: 18.17 [id number] A-L: 49.96 | | mlRAESV MOD: 49.15 mlRALs: 5.60 cmTAPSE: 2.19 cmAV Env.Ti: 293.90 msAV maxPG: | | 4.91 mmHgAV meanP.41 mmHgAV Vmax: 1.10 m/Milton Vmean: 0.72 m/Milton VTI: 21.23 | | cmAVA Vmax: 3.17 cm2AVA (VTI): 3.89 [id number] Vmax: 0.00 cm2/m2AVAI (VTI): 0.00 | | cm2/m2LVOT Env.Ti: 360.44 msLVOT maxP.14 mmHgLVOT meanP.50 mmHgLVSI Dopp: | | 43.29 ml/m2LVSV Dopp: 82.69 mlLVOT Vmax: 0.88 m/sLVOT Vmean: 0.57 m/sLVOT VTI: | | 20.85 cmMV A Emanuel: 0.67 m/sMV Dec [place]: 1.81 m/s2MV DecT: 317.65 msMV E Emanuel: | | 0.57 m/sMV E/A Ratio: 0.85E/E' Sept: 11.69E' Lat: 0.08 m/sE' Sept: 0.04 m/sRAP: | | 5 mmHgRV S': 0.12 m/sRVSP: 25.91 mmHgTR maxP.91 mmHgTR Vmax: 2.28 m/s | | Production Line Mechanic:Authenticated by: Cici Robles Date/Time: 02-21-2019 19:5:14 | [...] A Emanuel: 0.67 m/s | |MV Dec [place]: 1.81 m/s2 | |MV DecT: 317.65 ms | |MV E Emanuel: 0.57 m/s | |MV E/A Ratio: 0.85 | |E/E' Sept: 11.69 | |E' Lat: 0.08 m/s | |E' Sept: 0.04 m/s | |RAP: 5 mmHg | |RV S': 0.12 m/s | |RVSP: 25.91 mmHg | |TR maxP.91 mmHg | |TR Vmax: 2.28 m/s | | | |Production Line Mechanic: | |Authenticated by: Cici Abraham | |Report [...]
--- OUTSIDE RECORDS SUMMARY | ~2019-10-12 | XMS | Encounter Summary ---
Demographics + + + | Address | [address] | | | [place] [address] | + + + | Home Phone | | + + + | Preferred Language | Unknown | + + + | Marital Status | | + + + | Uatsdin Affiliation | Unknown | + + + [...] Team Providers + +------+ + | Care Rn Registry Name | Role | Phone | + [...] [place] | | | | | | [address] | | | | | | [phone] | | | +--------+ + + + [...] | | | | | [place] [address] | | | | | | [phone] | | | | | | | [...] 0.67 m/s MV | | | Dec [place]: 1.81 m/s2 MV DecT: 317.65 ms MV E Emanuel: 0.57 m/s | | | MV E/A Ratio: 0.85 E/E' Sept: 11.69 E' Lat: 0.08 m/s E' | | | Sept: 0.04 m/s RAP: 5 mmHg RV S': 0.12 m/s RVSP: 25.91 | | | mmHg TR maxP.91 mmHg TR Vmax: 2.28 m/s Associate Financial Advisor: | | | Authenticated by: Cici Abraham [...] mlLAESV Index (A-L): 24.25 ml/m2LAAs A2C: 14.49 [id number] A-L A2C: 33.91 | | mlLAESV MOD A2C: 32.12 mlLALs A2C: 5.25 cmLAAs A4C: 19.79 [id number] A-L A4C: | | 58.12 mlLAESV MOD A4C: 57.48 mlLALs A4C: 5.72 cmRAAs: 18.17 [id number] A-L: 49.96 | | mlRAESV MOD: 49.15 mlRALs: 5.60 cmTAPSE: 2.19 cmAV Env.Ti: 293.90 msAV maxPG: | | 4.91 mmHgAV meanP.41 mmHgAV Vmax: 1.10 m/Milton Vmean: 0.72 m/Milton VTI: 21.23 | | cmAVA Vmax: 3.17 cm2AVA (VTI): 3.89 [id number] Vmax: 0.00 cm2/m2AVAI (VTI): 0.00 | | cm2/m2LVOT Env.Ti: 360.44 msLVOT maxP.14 mmHgLVOT meanP.50 mmHgLVSI Dopp: | | 43.29 ml/m2LVSV Dopp: 82.69 mlLVOT Vmax: 0.88 m/sLVOT Vmean: 0.57 m/sLVOT VTI: | | 20.85 cmMV A Emanuel: 0.67 m/sMV Dec [place]: 1.81 m/s2MV DecT: 317.65 msMV E Emanuel: | | 0.57 m/sMV E/A Ratio: 0.85E/E' Sept: 11.69E' Lat: 0.08 m/sE' Sept: 0.04 m/sRAP: | | 5 mmHgRV S': 0.12 m/sRVSP: 25.91 mmHgTR maxP.91 mmHgTR Vmax: 2.28 m/s | | Associate Financial Advisor:Authenticated by: Cici Robles Date/Time: 02-21-2019 19:5:14 | [...] A [place]: 0.67 m/s | |MV Dec [place]: 1.81 m/s2 | |MV DecT: 317.65 ms | |MV E E[place]: 0.57 m/s | |MV E/A Ratio: 0.85 | |E/E' Sept: 11.69 | |E' Lat: 0.08 m/s | |E' Sept: 0.04 m/s | |RAP: 5 mmHg | |RV S': 0.12 m/s | |RVSP: 25.91 mmHg | |TR maxP.91 mmHg | |TR Vmax: 2.28 m/s | | | |Associate Financial Advisor: | |Authenticated by: Cici Abraham | |Report [...]
--- OUTSIDE RECORDS SUMMARY | ~2019-10-12 | XMS | Encounter Summary ---
Demographics + + + | Address | [address] | | | [place] [address] | + + + | Home Phone | | + + + | Preferred Language | Unknown | + + + | Marital Status | | + + + | Adventist Affiliation | Unknown | + + + [...] Team Providers + +------+ + | Care Computer Instructor Name | Role | Phone | + [...] | | Required | | Adenocarcino | ELECTRICIAN CONSTRUCTOR SUPERVISOR [address] | [address] | | | | | ma of | [address] | [place], | | | | | rectosigmoid | [address] | [place] [address] | | | | | junction | [place], [place] | Phone: | | | | | ([facility]) | [address] | [phone] | | | | | | Phone: | Fax: | | | | | | [phone] | [phone] | | | | | | Fax: | | | | | | | [phone] | | + + + + + [...] | | | Surgery / | | [address] | [address] | | | | General | | Charlee Santamaria | [address] | | | | Surgery | | Vish, | [place], [place] | | | | | | [place] | [address] | | | | | | [address] | Phone: | | | | | | Phone: | [phone] | | | | | | [phone] | Fax: | | | | | | Fax: | [phone] | | | | | | [phone] | | + +--------+ + + + + Encounter Details +--------+---------+ + + + | Date | Type | Department | Care Team | Description | +--------+---------+ + + + | 09/20/ | Office | [facility] | Arabellacegabby, | 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
--- OUTSIDE RECORDS SUMMARY | ~2019-10-12 | XMS | Encounter Summary ---
Demographics + + + | Address | [address] | | | [place] [address] | + + + | Home Phone | | + + + | Preferred Language | Unknown | + + + | Marital Status | | + + + | Hindu Affiliation | Unknown | + + + | Race | Unknown | + + + | Ethnic Group | Unknown | + + + Author + + + | Author | [facility] | | | and [place] | + + + | Organization | [facility] | | [...] Team Providers + +------+ + | Care Clinical Training Coordinator Name | Role | Phone | + +------+ + | Lizette Martinez | PCP | | + +------+ + Encounter Details +--------+ + + + + | Date | Type | Department | Care Team | Description | +--------+ + + + + | 09/05/ | Documentati | [facility] | Evelyne Gonzalez, | | | 2019 | on | GENERAL SURGERY [address] | Planning Management It Specialist | | | | | [address] | | | | | | [place] | | | | | | [address] | | | | | | [phone] | | | +--------+ + + + [...] of this encounter Progress Notes Evelyne Gonzalez Planning Management It Specialist - 09/05/2019 10:45 AM PSTPertinent medical records [...] [address] | | | | | | [place] [address] | | | | | | [phone] | | | | | | | | +--------+---------+ + + + documented as of this encounter Visit Diagnoses Not on filedocumented in this encounter"
--- OUTSIDE RECORDS SUMMARY | ~2019-10-12 | XMS | Encounter Summary ---
Demographics + + + | Address | [address] | | | [place] [address] | + + + | Home Phone [...] Team Providers + +------+ + | Care Street Sweeper Operator Name | Role | Phone | + +------+ + | Lizette Martinez | PCP | | + +------+ + Encounter Details +--------+ + + + + | Date | Type | Department | Care Team | Description | +--------+ + + + + | 08/26/ | Hospital | [facility] | Phong Tyson, | | | 2018 | Encounter | [facility] | [address] | | | | | [address] | [address] | | | | | [address] | [place] [address] | | | | | [place], [place] | [phone] | | | | | [address] | | | | | | [phone] | | | +--------+ + + + [...] [address] | | | | | | [place] [address] | | | | | | [phone] | | | | | | | [...]
--- OUTSIDE RECORDS SUMMARY | ~2019-10-12 | XMS | Clinical Summary ---
Demographics + + + | Address | [address] | | | [place] [address] | + + + | Home Phone | | + + + | Preferred Language | Unknown | + + + | Marital Status | | + + + | Caodaism Affiliation | Unknown | + + + | Race | Unknown | + + + | Ethnic Group | Unknown | + + + Author + + + | Author | [facility] | | | and [place] | + + + | Organization | [facility] | | | [...] Team Providers + +------+ + | Care Phlebotomist Supervisor/Instructor Name | Role | Phone | + [...] | | lung.1. Presentation to the [facility] Emergency Room | | on August 23, 2019 with a 10 week history of abdominal | | distension and pain, and bloody diarrhea.2. CT scan | | abdomen/pelvis on August 23, [address] [facility] | | demonstrated significant nodularity in the omentum and mesentery, | | thickened rectosigmoid with diminished lumen. No liver | | metastases, nodule at left lung base. 3. Limited colonoscopy and | | rigid proctoscopy (Tahir) on August 24, 2019 demonstrated a | | circumferential palpable mass palpable within the rectum, | | estimated to be 10 cm long by proctoscopy. 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 | | Last Assessment & Plan: Arlene Rojas is referred by Sree | | Yifan Adam [address] [place] [address] for | | evaluation and management of confirmed regionally metastatic | | colon cancer to the omentum, with unconfirmed metastatic disease | | to the right lung.I met with Crystal and his daughter, Gissel, at | | the [facility] on | | 09/14/2019.Review of systems is notable for rectal pain.Clinical | | exam is notable for decreased breath sounds and dullness at the | | right base.Laboratory exam is notable for elevated CEA.Images | | from his [facility] evaluations were | | reviewed.Assessment: confirmed regionally metastatic colon cancer | | to the omentum, with unconfirmed metastatic disease to the right | | lung.Plan; This was an extended, high-value encounter were we | | reviewed Mr. Rojas's hiqubx-vi-rzgijzh, his goals of therapy and | | [...] | | proceed with treatment directly at [facility] in | | [place], [place]. He will be referred to Dr. Emeterio [...] automatically from request for surgery | | [id number] | + + + + + | Rectal obstruction | 08/25/2019 | + + + + + | Overview: Added automatically from request for surgery | | [id number] | + + + + + | [...] | | | 2018 | | | CREDIT REVIEW MANAGER | | +--------+ + + + + [...] | | 2018 | on | | Demand Manager | | +--------+ + + + + [...] [address] | | | | | | [place] [address] | | | | | | [phone] | | | | | | | [...] J?MRN: | | | | | | [id number] | | | [id number] | | | riteri | | | [...] | | | St. | | | [place] | | | y | | | [...] | | | St. | | | [place] | | | y H. | | [...] | | | St. | | | [place] | | | y H. | | [...] | | | 1-103a | | | [id number] | | | 41 | | | [...] | | | Absolute | performed at [facility], [address] | [address] | LABORATORY | | | | [address], | | | | | | [place] [address] | | | | + + + + + + + + | Specimen | + + | Blood | + + + + + + + | Performing | Address | City/State/Zipcode | Phone Number | | Organization | | | | + + + + + | [facility] | [address] | [place] [address] | [phone] | + + + + + Comprehensive [...] | | | | | performed at [facility], [address] | | | | | | [facility], | | | | | | [place] [address] | | | | + + + + + + + + | Specimen | + + | Blood | + + + + + + + | Performing | Address | City/State/Zipcode | Phone Number | | Organization | | | | + + + + + | [facility] | [address] | [place] [address] | [phone] | + + + + + Phosphorus [...] Testing | 2.3 - 4.8 mg/dL | [facility] | | | | performed at [facility];[address] | | LABORATORY | | | | [address];[place], [place] | | | | | | [address] | | | | + + + + + + + + | Specimen | + + | Blood | + + + + + + + | Performing | Address | City/State/Zipcode | Phone Number | | Organization | | | | + + + + + | [facility] | [address] | [place] [address] | [phone] | + + + + + Magnesium [...] Testing | 1.7 - 2.4 mg/dL | [facility] | | | | performed at [facility];[address] | | LABORATORY | | | | [address];[place], [place] | | | | | | [address] | | | | + + + + + + + + | Specimen | + + | Blood | + + + + + + + | Performing | Address | City/State/Zipcode | Phone Number | | Organization | | | | + + + + + | [facility] | [address] | [place] [address] | [phone] | + + + + + Basic [...] | >60Comment: GFR <60: | >60 | [facility] | | | GFR | CHRONIC [...] | | | | | | MDRD [facility] traceable | | | | | | equation.Testing | | | | | | performed at [facility];[address] | | | | | | [facility];[place], [place] | | | | | | [address] | | | | + + + + + + + + | Specimen | + + | Blood | + + + + + + + | Performing | Address | City/State/Zipcode | Phone Number | | Organization | | | | + + + + + | [facility] | [address] | [place] [address] | [phone] | + + + + + POC [...] Testing | 65 - 99 mg/dL | [facility] | | | POC | performed at [facility];[address] | | LABORATORY | | | [address];[place] | | | | | | [address] | | | | + + + + + + + + | Specimen | + + | | + + + + + + + | Performing | Address | City/State/Zipcode | Phone Number | | Organization | | | | + + + + + | [facility] | [address] | [place] [address] | [phone] | + + + + + Surgical [...] of the | | | rectum (see [id number]). As part of [facility]' Quality | | | Improvement Program, this [...] barker-yellow and lobulated. | | | Maintenance Helper sections are submitted in cassette (A1). B. The | | | specimen, labeled "FC, omental biopsy," is received in formalin and | | | consists of a 3.2 by 3.1 by 1.1 cm aggregate of barekr-yellow, lobulated | | | and slightly fragmented portions of tissue. The cutsurface reveals | | | multiple barker-white nodules ranging from 0.7-0.9 cm in greatest | | | dimension. The remainder of the cut surface is barker-yellow and | | | lobulated. Maintenance Helper sections are submitted incassette (B1). | | [...] component was performed | | | by [facility], [address] [place] [id number] (Medical | | | Director: Yenny Young MD; CLIA# [id number]). Professional | | | interpretation was performed by[facility] | | | [facility], [address] [place] [phone] (Medical | | | Director: Kenyon Delacruz M.D.; [facility]#: [id number]). REASON FOR | | | ADDENDUM:Results of [...] | | | preparation) was performed at [facility]. | | | Interpretation was performed at [facility]. | | | Immunohistochemical studies and/or special stains were performed on | | | this case with the appropriate controls, which stain appropriately. | | | These tests were developed and their performance characteristics | | | determined by [facility] and/or [facility]. These tests | | | may have not been cleared or approved by the U.S. Food and Drug | | | Administration. The FDA has determined that suchclearance or | | | approval is not necessary. [facility] and [facility] are certified | | | under the [...] designed to | | | detect V600E ([id number]). Some non-V600E mutations, V600K, V600D, and | [...] | analysis test have been determined by [facility], [address] | | [address] [place], [place],but have not been cleared or approved [...] | | analysis tests were performed at [facility], [address] | | | [place] [address] (Iron Carrier: Gaudencio Lira MD; CLIA# | | | [id number]). REASON FOR ADDENDUM:This case is addended for the | | | addition of BRAF and KRAS Mutation Analysis results. ADDENDUM | | | PATHOLOGIC DIAGNOSIS:[id number], [id number] BIOPSY: Mutation DETECTED | | | - [...] colorectal cancer. J Clin Oncol 2008; 26(35): 4601-6089. doi: | | | 10.1200/JCO.2008.18.72850. Arnel IG, Alexis M, Boateng M, et al. | | | Wild-type KRAS is required for panitunumab efficacy in patients with | | | metastatic colorectal cancer. J Clin Oncol 2008; 26:3935-4215. | | | doi:10.1200/JCO.2007.14.38318. Gilda PATTON, Cheli MENDOZA, Ean A, et | | | al. Extended TAO mutations and anti-EGFR monoclonal antibody survival | | | benefit in metastatic colorectal cancer: a meta-analysis of | | | randomized, controlled trials.Annals of Oncol 2014; 26(1): 13-21. doi: | | | 10.1093/annonc/bjl080 4. Navi HERMOSILLO, Melissa RODRIGUEZ. KRAS | | | Mutation: Should We Test for It, and Does It Matter? J Clin Oncol | | | 2013; 31:2979-0351. doi: 10.1200/JCO.2012.43.0454 ADDENDUM CLINICAL | | | [...] | | paraffin tissue block B1, numbered [id number], belonging to patient | | | ARLENE ROJAS. Diagnostician: Nicanor Elias | | | DOPathologistDiagnostician: Kenyon Delacruz | | | MDPathologistDiagnostician: Prieto Brito MT([facility]) | | | MBPathologistDiagnostician: Demi Bearden [...] LABORATORY | | | | Blvd;[place] [address] | | | | + + + + + + + + | Specimen | + + | Blood | + + + + + + + | Performing | Address | City/State/Zipcode | Phone Number | | Organization | | | | + + + + + | [facility] | [address] | [place] [address] | [phone] | + + + + + Iron [...] [address], | | | | | | [place] [address] | | | | + + + + + + + + | Specimen | + + | Blood | + + + + + + + | Performing | Address | City/State/Zipcode | Phone Number | | Organization | | | | + + + + + | [facility] | [address] | [place] [address] | [phone] | + + + + + Protime INR (08/26/2019 4:25 AM PST) + + + + + + | Component | Value | Ref Range | Performed | Pathologist | | | | | At | Signature | + + + + + + | INR | 1.1Comment: REFERENCE | | [facility] | | | | RANGE:0.9 - [...] | | | | | performed at [facility];[address] | | | | | | [facility];[place] | | | | | | [address] | | | | + + + + + + + + | Specimen | + + | Blood | + + + + + + + | Performing | Address | City/State/Zipcode | Phone Number | | Organization | | | | + + + + + | [facility] | [address] | [place] [address] | [phone] | + + + + + CBC [...] [facility] | | | | performed at [facility], [address] | | LABORATORY | | | | [address], | | | | | | [place] [address] | | | | + + + + + + + + | Specimen | + + | Blood | + + + + + + + | Performing | Address | City/State/Zipcode | Phone Number | | Organization | | | | + + + + + | [facility] | [address] | [place] [address] | [phone] | + + + + + Ferritin (08/26/2019 4:25 AM PST) + + + + + + | Component | Value | Ref Range | Performed | Pathologist | | | | | At | Signature | + + + + + + | Ferritin | 144Comment: Testing | 11 - 450 ng/mL | [facility] | | | | performed at [facility], [address] | | LABORATORY | | | | [address], | | | | | | [place] [address] | | | | + + + + + + + + | Specimen | + + | Blood | + + + + + + + | Performing | Address | City/State/Zipcode | Phone Number | | Organization | | | | + + + + + | [facility] | [address] | [place] [address] | [phone] | + + + + + Urinalysis [...] - 1.030 | [facility] | | | [place], | | | LABORATORY | | | [...] [address] | | | | | [address];[place] [address] | | | | + + + [...] | + + + + + | [facility] | [address] | [place] [address] | [phone] | + + + + + PATHOLOGY [...] +--------+ +---------+--------+ | MEDICARE | MEDICA | [id number] | 04/03/20 | [phone] | | Medica | | | RE | | 14-Pre | 5 | | re | | | PART A | | sent | | | | | | AND B | | | | | | + +--------+ +--------+ +---------+--------+ | [facility] | IHS | [id number] | | | | Indemn | | SERVICE | YELLOW | | 019-Pr | | | ity | | | HAWK | | esent | | | | + +--------+ +--------+ +---------+--------+ | [facility] | IHS | [id number] | 10/04/19 | | | Indemn | | SERVICE | YELLOW | | 19-Pre | | | ity | | | HAWK | | sent | | | | + +--------+ +--------+ +---------+--------+ | MEDICARE | MEDICA | [id number] | 04/03/20 | [phone] | | Medica [...] Person | Self [birth year] | [address] | | | al/Fam | | 1941 | [phone] | [place] [address] | | | [place] | | | 9 (Home) | | + +--------+ +--------+ + + | Arlene Rojas | Person | Self [birth year] | | [address] | | | al/Fam | | 1941 | [phone] | [place] [address] | | | [place] | | | 9 (Home) | | + +--------+ +--------+ + + Advance Directives + + + + + | Type | Date Recorded | Patient | Explanation | | | | Maintenance Helper | | + + + + + | Power of | | | | | Mortgage Loan Coordinator | | | | + + + [...]
--- OUTSIDE RECORDS SUMMARY | ~2019-10-12 | XMS | Encounter Summary ---
Demographics + + + | Address | [address] | | | [place] [address] | + + + | Home Phone | | + + + | Preferred Language | Unknown | + + + | Marital Status | | + + + | Orthodoxy Affiliation | Unknown | + + + [...] Team Providers + +------+ + | Care Molybdenum Steamer Operator Name | Role | Phone | [...] + + | 08/26/ | Surgery | [facility] | Phong Tyson, | LAPAROSCOPIC | | 2019 | | [facility] | [address] | COLOSTOMY CREATION | | | | OPERATING ROOM [address] | [address] | | | | | [address] | [place] [address] | | | | | [place], [place] | [phone] | | | | | [address] | | | | | | [phone] | | | +--------+---------+ + + + [...] Barker MD - 08/30/2019 2:35 PM PST [facility] Service: Hospitalist Physician Discharge Summary Patient ID: Arlene WALKERN: [id number] 1940 78 y.o. Admit date: 08/25/2019 Discharge [...] SNF placemen t. He was accepted at [facility]. Referral to a local oncologist was sent. He will follow up with surgery in 2 weeks. Past Medical History: Past Medical History: Diagnosis Date Hyperlipidemia Hypertension 2004 Tobacco abuse Past Surgical History: Procedure Laterality Date COLOSTOMY N/A 08/26/2019 Procedure: LAPAROSCOPIC COLOSTOMY CREATION; Surgeon: Phong Tyson MD; [place] [facility] [place] OTHER SURGICAL HISTORY Left 1985 ORIF ANKLE FRACTURE OTHER SURGICAL HISTORY Bilateral 2017 CATARACT EXTRACTION SIGMOIDOSCOPY N/A 08/26/2019 Procedure: SIGMOIDOSCOPY FLEXIBLE; Surgeon: Phong Tyson MD; [facility] [facility] Discharged Condition: Stable for discharge [...] input(s): ABG Disposition: Follow up: GRIFFIN [place] [address] [facility] [facility] [address] Go on 09/11/2019 You have an appointment at 0930 on 09/11/2019 with Lizette MOYA [address] [address] Phong Tyson MD [address] [place] [id number] Schedule an appointment as soon as possible [...] Gonzalez RN - 08/29/2019 2:04 PM PST [facility] Service: Ostomy Care Consult Note Hospital Day: 4 SUBJECTIVE Patient Summary: Ostomy nurse in for continued teaching. Family at bedside. 08/29/19 4597 Visit Information Visit Type Initial ostomy/fistula assessement [...] of appliance change. Plan is to return [facility] for return [facility]. Patient receives his healthcare through the [facility]. CM has c ontacted patient's PCP and they will work with DME to get his ostomy supplies. Ostomy RX fo rm filled out with patient's specific ostomy appliances and JOSE MARIA has faxed this to the PCP. P joey is to provide patient with enough pouching supplies to last 2 weeks (until his post-op a ppointment) [facility] starter kit ordered with pt's permission # [id number] Thank you for allowing me to participate in the care of this patient. Soledad Berger RN, CWON 08/29/2019 14:04 Jasmin Herrmann MD - 08/29/2019 1:18 PM PSTFormatting of this note might be different from the or iginal. [facility] Service: Hospitalist Progress Note Hospital Day: [...] Rojas 78 y.o. 1940 Med. Record Number: [id number] Date of admission: 08/25/2019 Service(s): Colorectal Surgery [...] nursing note reviewed. Exam conducted with a infant and toddler teacher present. Cardiovascular: Rate and Rhythm: Normal rate. [...] with heme/onc, either Dr Malik here in [facility] or supposedly there is a heme/onc Dr [facility] (where they live). HTN BP's remain low-normal [...] BMI 28.00 kg/m Physical exam: AOx3 NAD AGDAAGUX Heart RRR Lungs CTa Abd SNTND +BS Ostomy has stool output Giuliano Villaseñor DO 08/28/2019 2:50 PM Sree Smith ARN P - 08/28/2019 8:17 AM PST Colorectal Surgery Progress Note Pt. Name/Age/: Arlene Rojas 78 y.o. 1940 Med. Record Number: [id number] Date of admission: 08/25/2019 Service(s): Colorectal Surgery [...] nursing note reviewed. Exam conducted with a infant and toddler teacher present. Cardiovascular: Rate and Rhythm: Normal rate. [...] Encourage ambulation 2. General diet ok 3. data base administrator consult and teaching AARON Bull 11:50 AM; [...] BMI 28.00 kg/m Physical exam: NAD AOx3 AGDAAGUX Heart RRR Lungs CTA Abd SNTND +BS [...] BMI 28.00 kg/m Physical exam: AOx3 NAD AGDAAGUX Heart RRR Lungs CTA Abd SNTND ostomy [...] Larsen RN 08/26/19 @7:47 AM Valentín Navarro [facility] - 08/25/2019 7:41 PM PSTRx Admission Medication History Note I have reviewed the medication history for appropriate doses obtained by: ED Pharmacist After reviewing the home medication list : I agree with the home medications list. Confirmed KEG HEADER medications with patient and insurance fill history. Adjusted KEG HEADER medications according to the paintless dent repair technician note below. - removed lopermaide. Per [...] [address] | | | | | | [place] [address] | | | | | | [phone] | | | | | | | [...] J?MRN: | | | | | | [id number] | | | [id number] | | | riteri | | | [...] | | | St. | | | [place] | | | y | | | [...] | | | St. | | | [place] | | | y H. | | [...] | | | St. | | | [place] | | | y H. | | [...] | | | 1-103a | | | [id number] | | | 41 | | | [...] | >60Comment: GFR <60: | >60 | [facility] | | | GFR | CHRONIC [...] | | | | | | MDRD IDOH traceable | | | | | | equation.Testing | | | | | | performed at [facility], [address] | | | | | | [facility], | | | | | | [place] [address] | | | | + + + + + + + + | Specimen | + + | Blood | + + + + + + + | Performing | Address | City/State/Zipcode | Phone Number | | Organization | | | | + + + + + | [facility] | [address] | [place] [address] | [phone] | + + + + + CBC with Differential (08/30/2019 4:29 AM PST) + + + + + + | Component | Value | Ref Range | Performed | Pathologist | | | | | At | Signature | + + + + + + | WBC | 8.15 | 3.80 - 11.00 | [facility] | | | | | K/uL [...] 0.04Comment: Testing | 0.00 - 0.10 | [facility] | | | Absolute | performed at [facility], [address] | K/uL | LABORATORY | | | | [address], | | | | | | [place] [address] | | | | + + + + + + + + | Specimen | + + | Blood | + + + + + + + | Performing | Address | City/State/Zipcode | Phone Number | | Organization | | | | + + + + + | [facility] | [address] | [place] [address] | [phone] | + + + + + Phosphorus (08/29/2019 4:53 AM PST) + + + + + + | Component | Value | Ref Range | Performed | Pathologist | | | | | At | Signature | + + + + + + | Phosphorus | 3.0Comment: Testing | 2.3 - 4.8 mg/dL | [place] | | | | performed at [facility];[address] | | LABORATORY | | | | [address];[place], [place] | | | | | | [address] | | | | + + + + + + + + | Specimen | + + | Blood | + + + + + + + | Performing | Address | City/State/Zipcode | Phone Number | | Organization | | | | + + + + + | [facility] | [address] | [place] [address] | [phone] | + + + + + Magnesium (08/29/2019 4:53 AM PST) + + + + + + | Component | Value | Ref Range | Performed | Pathologist | | | | | At | Signature | + + + + + + | Magnesium | 1.7Comment: Testing | 1.7 - 2.4 mg/dL | [facility] | | | | performed at [facility];[address] | | LABORATORY | | | | [address];[place], [place] | | | | | | [address] | | | | + + + + + + + + | Specimen | + + | Blood | + + + + + + + | Performing | Address | City/State/Zipcode | Phone Number | | Organization | | | | + + + + + | [facility] | [address] | [place] [address] | [phone] | + + + + + Basic [...] | | | | performed at [facility] | | | | | | [address];[place], [place] | | | | | | [address] | | | | + + + + + + + + | Specimen | + + | Blood | + + + + + + + | Performing | Address | City/State/Zipcode | Phone Number | | Organization | | | | + + + + + | [facility] | [address] | [place] [address] | [phone] | + + + + + CBC [...] | | | Absolute | performed at [facility];[address] | K/uL | LABORATORY | | | | [address];[place] | | | | | | [address] | | | | + + + + + + + + | Specimen | + + | Blood | + + + + + + + | Performing | Address | City/State/Zipcode | Phone Number | | Organization | | | | + + + + + | [facility] | [address] | [place] [address] | [phone] | + + + + + POC Glucose (08/28/2019 4:41 PM PST) + + + + + + | Component | Value | Ref Range | Performed | Pathologist | | | | | At | Signature | + + + + + + | Glucose, | 103 (H)Comment: Testing | 65 - 99 mg/dL | [facility] | | | POC | performed at [facility];[address] | | LABORATORY | | | | [address];[place], [place] | | | | | | [address] | | | | + + + + + + + + | Specimen | + + | | + + + + + + + | Performing | Address | City/State/Zipcode | Phone Number | | Organization | | | | + + + + + | [facility] | [address] | [place] [address] | [phone] | + + + + + POC [...] | | POC | performed at [facility];[address] | | LABORATORY | | | | [address];[place], [place] | | | | | | [address] | | | | + + + + + + + + | Specimen | + + | | + + + + + + + | Performing | Address | City/State/Zipcode | Phone Number | | Organization | | | | + + + + + | [facility] | [address] | [place] [address] | [phone] | + + + + + POC [...] | | POC | performed at [facility];[address] | | LABORATORY | | | | [address];[place] | | | | | | [address] | | | | + + + + + + + + | Specimen | + + | | + + + + + + + | Performing | Address | City/State/Zipcode | Phone Number | | Organization | | | | + + + + + | [facility] | [address] | [place] [address] | [phone] | + + + + + Phosphorus (08/28/2019 4:18 AM PST) + + + + + + | Component | Value | Ref Range | Performed | Pathologist | | | | | At | Signature | + + + + + + | Phosphorus | 2.1 (L)Comment: Testing | 2.3 - 4.8 mg/dL | [facility] | | | | performed at L, [address] | | LABORATORY | | | | [address], | | | | | | [place] [address] | | | | + + + + + + + + | Specimen | + + | Blood | + + + + + + + | Performing | Address | City/State/Zipcode | Phone Number | | Organization | | | | + + + + + | [facility] | [address] | [place] [address] | [phone] | + + + + + Magnesium (08/28/2019 4:18 AM PST) + + + + + + | Component | Value | Ref Range | Performed | Pathologist | | | | | At | Signature | + + + + + + | Magnesium | 2.0Comment: Testing | 1.7 - 2.4 mg/dL | [place] | | | | performed at [facility], [address] | | LABORATORY | | | | [address], | | | | | | [place] [address] | | | | + + + + + + + + | Specimen | + + | Blood | + + + + + + + | Performing | Address | City/State/Zipcode | Phone Number | | Organization | | | | + + + + + | [facility] | [address] | [place] [address] | [phone] | + + + + + Basic [...] | >60Comment: GFR <60: | >60 | [facility] | | | GFR | CHRONIC [...] | | | | | | MDRD [facility] traceable | | | | | | equation.Testing | | | | | | performed at [facility], [address] | | | | | | [facility], | | | | | | [place] [address] | | | | + + + + + + + + | Specimen | + + | Blood | + + + + + + + | Performing | Address | City/State/Zipcode | Phone Number | | Organization | | | | + + + + + | [facility] | [address] | [place] [address] | [phone] | + + + + + CBC [...] | | | Absolute | performed at [facility], [address] | K/uL | LABORATORY | | | | [address], | | | | | | [place] [address] | | | | + + + + + + + + | Specimen | + + | Blood | + + + + + + + | Performing | Address | City/State/Zipcode | Phone Number | | Organization | | | | + + + + + | [facility] | [address] | [place] [address] | [phone] | + + + + + POC Glucose (08/27/2019 8:35 PM PST) + + + + + + | Component | Value | Ref Range | Performed | Pathologist | | | | | At | Signature | + + + + + + | Glucose, | 129 (H)Comment: Testing | 65 - 99 mg/dL | [facility] | | | POC | performed at [facility];[address] | | LABORATORY | | | | [address];[place] | | | | | | [address] | | | | + + + + + + + + | Specimen | + + | | + + + + + + + | Performing | Address | City/State/Zipcode | Phone Number | | Organization | | | | + + + + + | [facility] | [address] | [place] [address] | [phone] | + + + + + POC Glucose (08/27/2019 12:05 PM PST) + + + + + + | Component | Value | Ref Range | Performed | Pathologist | | | | | At | Signature | + + + + + + | Glucose, | 99Comment: Testing | 65 - 99 mg/dL | [facility] | | | POC | performed at [facility];[address] | | LABORATORY | | | | [address];[place], [place] | | | | | | [address] | | | | + + + + + + + + | Specimen | + + | | + + + + + + + | Performing | Address | City/State/Zipcode | Phone Number | | Organization | | | | + + + + + | [facility] | [address] | [place] [address] | [phone] | + + + + + POC [...] | | POC | performed at [facility];[address] | | LABORATORY | | | | [address];[place] | | | | | | [address] | | | | + + + + + + + + | Specimen | + + | | + + + + + + + | Performing | Address | City/State/Zipcode | Phone Number | | Organization | | | | + + + + + | [facility] | [address] | [place] [address] | [phone] | + + + + + Phosphorus (08/27/2019 5:10 AM PST) + + + + + + | Component | Value | Ref Range | Performed | Pathologist | | | | | At | Signature | + + + + + + | Phosphorus | 3.8Comment: Testing | 2.3 - 4.8 mg/dL | [facility] | | | | performed at [facility], [address] | | LABORATORY | | | | [address], | | | | | | [place] [address] | | | | + + + + + + + + | Specimen | + + | Blood | + + + + + + + | Performing | Address | City/State/Zipcode | Phone Number | | Organization | | | | + + + + + | [facility] | [address] | [place] [address] | [phone] | + + + + + Magnesium (08/27/2019 5:10 AM PST) + + + + + + | Component | Value | Ref Range | Performed | Pathologist | | | | | At | Signature | + + + + + + | Magnesium | 2.2Comment: Testing | 1.7 - 2.4 mg/dL | [facility] | | | | performed at [facility], [address] | | LABORATORY | | | | [address], | | | | | | [place] [address] | | | | + + + + + + + + | Specimen | + + | Blood | + + + + + + + | Performing | Address | City/State/Zipcode | Phone Number | | Organization | | | | + + + + + | [facility] | [address] | [place] [address] | [phone] | + + + + + Basic [...] | | | | | performed at [facility], [address] | | | | | | [address], | | | | | | [place] [address] | | | | + + + + + + + + | Specimen | + + | Blood | + + + + + + + | Performing | Address | City/State/Zipcode | Phone Number | | Organization | | | | + + + + + | [facility] | [address] | [place] [address] | [phone] | + + + + + CBC [...] at | | | | | | [facility], [address] [facility] | | | | | | [place] | | | | | | [address] | | | | + + + + + + + + | Specimen | + + | Blood | + + + + + + + | Performing | Address | City/State/Zipcode | Phone Number | | Organization | | | | + + + + + | [facility] | [address] | [place] [address] | [phone] | + + + + + POC Glucose (08/27/2019 4:06 AM PST) + + + + + + | Component | Value | Ref Range | Performed | Pathologist | | | | | At | Signature | + + + + + + | Glucose, | 81Comment: Testing | 65 - 99 mg/dL | [facility] | | | POC | performed at [facility];[address] | | LABORATORY | | | | [address];[place], [place] | | | | | | [address] | | | | + + + + + + + + | Specimen | + + | | + + + + + + + | Performing | Address | City/State/Zipcode | Phone Number | | Organization | | | | + + + + + | [facility] | [address] | [place] [address] | [phone] | + + + + + POC [...] | | POC | performed at [facility];[address] | | LABORATORY | | | | [address] [facility];[place], [place] | | | | | | [address] | | | | + + + + + + + + | Specimen | + + | | + + + + + + + | Performing | Address | City/State/Zipcode | Phone Number | | Organization | | | | + + + + + | [facility] | [address] | [place] [address] | [phone] | + + + + + Surgical [...] | rectum (see [id number]). As part of [facility]' Quality | | | Improvement Program, this [...] surfaceis barker-yellow and lobulated. | | | Swing Driver sections are submitted in cassette (A1). B. [...] is barker-yellow and | | | lobulated. Swing Driver sections are submitted incassette (B1). | | [...] component was performed | | | by [facility] [address] (Medical | | | Director: Yenny Young MD; CLIA# [id number]). [facility] | | | [facility] | | | [address] [address] (Medical | | | Director: Kenyon Delacruz M.D.; CLIA#: [id number]). REASON FOR | | | ADDENDUM:Results of [...] | | | preparation) was performed at [facility]. | | | Interpretation was performed at [facility]. | | | Immunohistochemical studies and/or special stains were performed on | | | this case with the appropriate controls, which stain appropriately. | | | These tests were developed and their performance characteristics | | | determined by [facility] and/or [facility]. These tests | | | may have not been cleared or approved by the U.S. Food and Drug | | | Administration. The FDA has determined that suchclearance or | | | approval is not necessary. [facility] and [facility] are certified | | | under the [...] designed to | | | detect V600E (R6846V). Some non-V600E mutations, V600K, V600D, and | [...] | analysis test have been determined by [facility], [address] | | [address] [place], [place],but have not been cleared or approved [...] | | analysis tests were performed at [facility], [address] [place] [address] [address] | | | [address] [place] [address] (Braille Teacher: Gaudencio Lira MD; IA# | | | [id number]). REASON FOR ADDENDUM:This case is addended for the | | | addition of BRAF and KRAS Mutation Analysis results. ADDENDUM | | | PATHOLOGIC DIAGNOSIS:[id number], [id number] BIOPSY: Mutation DETECTED | | | - [...] colorectal cancer. J Clin Oncol 2008; 26(35): 2492-2188. doi: | | | 10.1200/JCO.2008.18.92408. Arnel IG, Alexis M, Boateng M, et al. | | | Wild-type KRAS is required for panitunumab efficacy in patients with | | | metastatic colorectal cancer. J Clin Oncol 2008; 26:3602-9241. | | | doi:10.1200/JCO.2007.14.97204. Gilda PATTON, Cheli MENDOZA, Ean A, et | | | al. Extended TAO mutations and anti-EGFR monoclonal antibody survival | | | benefit in metastatic colorectal cancer: a meta-analysis of | | | randomized, controlled trials.Annals of Oncol 2014; 26(1): 13-21. doi: | | | 10.1093/annonc/jaz990 4. Navi HERMOSILLO, Melissa RODRIGUEZ. KRAS | | | Mutation: Should We Test for It, and Does It Matter? J Clin Oncol | | | 2013; 31:2042-4790. doi: 10.1200/JCO.2012.43.0454 ADDENDUM CLINICAL | | | [...] | | paraffin tissue block B1, numbered [id number], belonging to patient | | | ARLENE ROJAS. Diagnostician: Nicanor Elias | | | DOPathologistDiagnostician: Kenyon Delacruz | | | MDPathologistDiagnostician: Prieto Brito MT([facility]) | | | MBPathologistDiagnostician: Demi Bearden MD [...] | | LABORATORY | | | | [address]vd;[place] [address] | | | | + + + + + + + + | Specimen | + + | Blood | + + + + + + + | Performing | Address | City/State/Zipcode | Phone Number | | Organization | | | | + + + + + | [facility] | [address] | [place] [address] | [phone] | + + + + + Protime INR (08/26/2019 4:25 AM PST) + + + + + + | Component | Value | Ref Range | Performed | Pathologist | | | | | At | Signature | + + + + + + | INR | 1.1Comment: REFERENCE | | [facility] | | | | RANGE:0.9 - [...] | | | | performed at [facility];[address] | | | | | | [address];[place], [place] | | | | | | [address] | | | | + + + + + + + + | Specimen | + + | Blood | + + + + + + + | Performing | Address | City/State/Zipcode | Phone Number | | Organization | | | | + + + + + | [facility] | [address] | [place] [address] | [phone] | + + + + + Ferritin [...] | | | | | [place] [address] | | | | + + + + + + + + | Specimen | + + | Blood | + + + + + + + | Performing | Address | City/State/Zipcode | Phone Number | | Organization | | | | + + + + + | [facility] | [address] | [place] [address] | [phone] | + + + + + Iron [...] | | | | | [place] [address] | | | | + + + + + + + + | Specimen | + + | Blood | + + + + + + + | Performing | Address | City/State/Zipcode | Phone Number | | Organization | | | | + + + + + | [facility] | [address] | [place] [address] | [phone] | + + + + + CBC [...] [facility] | | | | performed at [facility], [address] | | LABORATORY | | | | [facility], | | | | | | [place] [address] | | | | + + + + + + + + | Specimen | + + | Blood | + + + + + + + | Performing | Address | City/State/Zipcode | Phone Number | | Organization | | | | + + + + + | [facility] | [address] | [place] [address] | [phone] | + + + + + Basic [...] | >60Comment: GFR <60: | >60 | [facility] | | | GFR | CHRONIC [...] | | | | | | MDRD [facility] traceable | | | | | | equation.Testing | | | | | | performed at [facility], [address] | | | | | | [facility], | | | | | | [place] [address] | | | | + + + + + + + + | Specimen | + + | Blood | + + + + + + + | Performing | Address | City/State/Zipcode | Phone Number | | Organization | | | | + + + + + | [facility] | [address] | [place] [address] | [phone] | + + + + + Urinalysis [...] - 1.030 | [facility] | | | [place], | | | LABORATORY | | | [...] UA | NONE SEENComment: | NONE | [facility] | | | | Testing performed at | | LABORATORY | | | | [facility];[address];[place] [address] | | | | + + + [...] | + + + + + | [facility] | [address] | [place] [address] | [phone] | + + + + + Comprehensive [...] | >60Comment: GFR <60: | >60 | [facility] | | | GFR | CHRONIC [...] | | | | performed at [facility];[address] | | | | | | [address] [facility] [address];[place], [place] | | | | | | [address] | | | | + + + + + + + + | Specimen | + + | Blood | + + + + + + + | Performing | Address | City/State/Zipcode | Phone Number | | Organization | | | | + + + + + | [facility] | [address] | [place] [address] | [phone] | + + + + + CBC [...] | | | Absolute | performed at [facility] | K/uL | LABORATORY | | | | [address];[place] | | | | | | [address] | | | | + + + + + + + + | Specimen | + + | Blood | + + + + + + + | Performing | Address | City/State/Zipcode | Phone Number | | Organization | | | | + + + + + | [facility] | [address] | [place] [address] | [phone] | + + + + + documented [...]
--- OUTSIDE RECORDS SUMMARY | ~2019-10-12 | XMS | Encounter Summary ---
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 Admit date: 08/25/2019 Discharge [...] SNF placemen t. He was accepted at [facility]. Referral to a local oncologist was sent. He will follow up with surgery in 2 weeks. Past Medical History: Past Medical History: Diagnosis Date Hyperlipidemia Hypertension 2004 Tobacco abuse Past Surgical History: Procedure Laterality Date COLOSTOMY N/A 08/26/2019 Procedure: LAPAROSCOPIC COLOSTOMY CREATION; Surgeon: Phong Tyson MD; [place] [facility] [place] OTHER [place]GICAL HISTORY Left 1985 [...] input(s): ABG Disposition: Follow up: GRIFFIN [place] [address] [facility] [address] Go on 09/11/2019 You have an appointment at 0930 on 09/11/2019 with Lizette MOYA [address] [address] Phong Tyson MD [address] [place] [phone] Schedule an appointment as soon as possible [...] Gonzalez RN - 08/29/2019 2:04 PM PST [facility] Service: Ostomy Care Consult Note Hospital Day: 4 SUBJECTIVE Patient Summary: Ostomy nurse in for continued teaching. Family at bedside. 08/29/19 3187 Visit Information Visit Type Initial ostomy/fistula assessement [...] of appliance change. Plan is to return [facility] for return [facility]. Patient receives his healthcare through the [facility]. CM has c ontacted patient's PCP and they will work with DME to get his ostomy supplies. Ostomy RX fo rm filled out with patient's specific ostomy appliances and JOSE MARIA has faxed this to the PCP. P joey is to provide patient with enough pouching supplies to last 2 weeks (until his post-op a ppointment) [facility] starter kit ordered with pt's permission # [id number] Thank you for allowing me to participate in the care of this patient. Soledad Berger RN, CWON 08/29/2019 14:04 Jasmin Herrmann MD - 08/29/2019 1:18 PM PSTFormatting of this note might be different from the or iginal. [facility] Service: Hospitalist Progress Note [...] Rojas 78 y.o. 1940 Med. Record Number: [id number] Date of admission: 08/25/2019 Service(s): Colorectal Surgery [...] nursing note reviewed. Exam conducted with a post tensioning ironworker helper present. Cardiovascular: Rate and Rhythm: Normal rate. [...] with heme/onc, either Dr Malik here in [facility] or supposedly there is a heme/onc Dr in the [facility] (where they live). HTN BP's remain [...] BMI 28.00 kg/m Physical exam: AOx3 NAD [facility] [place] Heart RRR Lungs CTa Abd SNTND +BS Ostomy has stool output Giuliano Villaseñor DO 08/28/2019 2:50 PM Sree Smith ARN P - 08/28/2019 8:17 AM PST Colorectal Surgery Progress Note Pt. Name/Age/: Arlene Rojas 78 y.o. 1940 Med. Record Number: [id number] Date of admission: 08/25/2019 Service(s): Colorectal Surgery [...] nursing note reviewed. Exam conducted with a post tensioning ironworker helper present. Cardiovascular: Rate and Rhythm: Normal rate. [...] Encourage ambulation 2. General diet ok 3. shop tailor consult and teaching AARON Bull 11:50 AM; [...] BMI 28.00 kg/m Physical exam: NAD AOx3 [facility] [place] Heart RRR Lungs CTA Abd SNTND +BS [...] BMI 28.00 kg/m Physical exam: AOx3 NAD [facility] [place] Heart RRR Lungs CTA Abd SNTND ostomy [...] RN 08/26/19 @7:47 AM Valentín Navarro [facility] - 08/25/2019 7:41 PM PSTRx Admission Medication History Note I have reviewed the medication history for appropriate doses obtained by: ED Pharmacist After reviewing the home medication list : I agree with the home medications list. Confirmed MECHANICAL INSULATOR medications with patient and insurance fill history. Adjusted MECHANICAL INSULATOR medications according to the nuclear plant instrument technician note below. - removed lopermaide. Per [...] [address] | | | | | | [place] [address] | | | | | | [phone] | | | | | | | [...] J?MRN: | | | | | | [id number] | | | [id number] | | | riteri | | | [...] | | | St. | | | Freer | | | y | | | [...] | | | St. | | | Freer | | | y H. | | [...] | | | St. | | | Freer | | | y H. | | [...] | | | 1-103a | | | [id number] | | | 41 | | | [...] >60Comment: GFR <60: | >60 | [facility] | | | GFR | [...] | | | | | | MDRD IDPA traceable | | | | | | equation.Testing | | | | | | performed at [facility], [address] | | | | | | [facility], | | | | | | [place] [address] | | | | + + + + + + + + | Specimen | + + | Blood | + + + + + + + | Performing | Address | City/State/Zipcode | Phone Number | | Organization | | | | + + + + + | [facility] | [address] | [place] [address] | [phone] | + + + + + CBC with Differential (08/30/2019 4:29 AM PST) + + + + + + | Component | Value | Ref Range | Performed | Pathologist | | | | | At | Signature | + + + + + + | WBC | 8.15 | 3.80 - 11.00 | [facility] | | | | | K/uL [...] Testing | 0.00 - 0.10 | [facility] | | | Absolute | performed at [facility], [address] | K/uL | LABORATORY | | | | [address], | | | | | | [place] [address] | | | | + + + + + + + + | Specimen | + + | Blood | + + + + + + + | Performing | Address | City/State/Zipcode | Phone Number | | Organization | | | | + + + + + | [facility] | [address] | [place] [address] | [phone] | + + + + + Phosphorus (08/29/2019 4:53 AM PST) + + + + + + | Component | Value | Ref Range | Performed | Pathologist | | | | | At | Signature | + + + + + + | Phosphorus | 3.0Comment: Testing | 2.3 - 4.8 mg/dL | [facility] | | | | performed at [facility];[address] | | LABORATORY | | | | [address] [address];[place], [place] | | | | | | [address] | | | | + + + + + + + + | Specimen | + + | Blood | + + + + + + + | Performing | Address | City/State/Zipcode | Phone Number | | Organization | | | | + + + + + | [facility] | [address] | [place] [address] | [phone] | + + + + + Magnesium (08/29/2019 4:53 AM PST) + + + + + + | Component | Value | Ref Range | Performed | Pathologist | | | | | At | Signature | + + + + + + | Magnesium | 1.7Comment: Testing | 1.7 - 2.4 mg/dL | [facility] | | | | performed at [facility];[address] | | LABORATORY | | | | [address];[place], [place] | | | | | | [address] | | | | + + + + + + + + | Specimen | + + | Blood | + + + + + + + | Performing | Address | City/State/Zipcode | Phone Number | | Organization | | | | + + + + + | [facility] | [address] [facility] | [place] [address] | [phone] | + + + + + Basic [...] | performed at [facility] | | | | | | [facility];[place], [place] | | | | | | [address] | | | | + + + + + + + + | Specimen | + + | Blood | + + + + + + + | Performing | Address | City/State/Zipcode | Phone Number | | Organization | | | | + + + + + | [facility] | [address] | [place] [address] | [phone] | + + + + + CBC [...] | LABORATORY | | | | [address];[place] | | | | | | [address] | | | | + + + + + + + + | Specimen | + + | Blood | + + + + + + + | Performing | Address | City/State/Zipcode | Phone Number | | Organization | | | | + + + + + | [facility] | [address] | [place] [address] | [phone] | + + + + + POC Glucose (08/28/2019 4:41 PM PST) + + + + + + | Component | Value | Ref Range | Performed | Pathologist | | | | | At | Signature | + + + + + + | Glucose, | 103 (H)Comment: Testing | 65 - 99 mg/dL | [facility] | | | POC | performed at [facility];[address] | | LABORATORY | | | | [address];[place], [place] | | | | | | [address] | | | | + + + + + + + + | Specimen | + + | | + + + + + + + | Performing | Address | City/State/Zipcode | Phone Number | | Organization | | | | + + + + + | [facility] | [address] | [place] [address] | [phone] | + + + + + POC [...] | LABORATORY | | | | [address];[place], [place] | | | | | | [address] | | | | + + + + + + + + | Specimen | + + | | + + + + + + + | Performing | Address | City/State/Zipcode | Phone Number | | Organization | | | | + + + + + | [facility] | [address] | [place] [address] | [phone] | + + + + + POC [...] [place] | | | | | | [address] | | | | + + + + + + + + | Specimen | + + | | + + + + + + + | Performing | Address | City/State/Zipcode | Phone Number | | Organization | | | | + + + + + | [facility] | [address] | [place] [address] | [phone] | + + + + + Phosphorus (08/28/2019 4:18 AM PST) + + + + + + | Component | Value | Ref Range | Performed | Pathologist | | | | | At | Signature | + + + + + + | Phosphorus | 2.1 (L)Comment: Testing | 2.3 - 4.8 mg/dL | [facility] | | | | performed at L, [address] | | LABORATORY | | | | [address], | | | | | | [place] [address] | | | | + + + + + + + + | Specimen | + + | Blood | + + + + + + + | Performing | Address | City/State/Zipcode | Phone Number | | Organization | | | | + + + + + | [facility] | [address] | [place] [address] | [phone] | + + + + + Magnesium (08/28/2019 4:18 AM PST) + + + + + + | Component | Value | Ref Range | Performed | Pathologist | | | | | At | Signature | + + + + + + | Magnesium | 2.0Comment: Testing | 1.7 - 2.4 mg/dL | [facility] | | | | performed at [facility], [address] | | LABORATORY | | | | [address], | | | | | | [place] [address] | | | | + + + + + + + + | Specimen | + + | Blood | + + + + + + + | Performing | Address | City/State/Zipcode | Phone Number | | Organization | | | | + + + + + | [facility] | [address] | [place] [address] | [phone] | + + + + + Basic [...] >60Comment: GFR <60: | >60 | [facility] | | | GFR | [...] W | | | | | | [place], | | | | | | [place] [address] | | | | + + + + + + + + | Specimen | + + | Blood | + + + + + + + | Performing | Address | City/State/Zipcode | Phone Number | | Organization | | | | + + + + + | [facility] | [address] | [place] [address] | [phone] | + + + + + CBC [...] | | | | | [place] [address] | | | | + + + + + + + + | Specimen | + + | Blood | + + + + + + + | Performing | Address | City/State/Zipcode | Phone Number | | Organization | | | | + + + + + | [facility] | [address] | [place] [address] | [phone] | + + + + + POC Glucose (08/27/2019 8:35 PM PST) + + + + + + | Component | Value | Ref Range | Performed | Pathologist | | | | | At | Signature | + + + + + + | Glucose, | 129 (H)Comment: Testing | 65 - 99 mg/dL | [facility] | | | POC | performed at [facility];[address] | | LABORATORY | | | | [address];[place] | | | | | | [address] | | | | + + + + + + + + | Specimen | + + | | + + + + + + + | Performing | Address | City/State/Zipcode | Phone Number | | Organization | | | | + + + + + | [facility] | [address] | [place] [address] | [phone] | + + + + + POC Glucose (08/27/2019 12:05 PM PST) + + + + + + | Component | Value | Ref Range | Performed | Pathologist | | | | | At | Signature | + + + + + + | Glucose, | 99Comment: Testing | 65 - 99 mg/dL | [facility] | | | POC | performed at [facility];[address] | | LABORATORY | | | | [address];[place], [place] | | | | | | [address] | | | | + + + + + + + + | Specimen | + + | | + + + + + + + | Performing | Address | City/State/Zipcode | Phone Number | | Organization | | | | + + + + + | [facility] | [address] | [place] [address] | [phone] | + + + + + POC [...] | LABORATORY | | | | [address];[place] | | | | | | [address] | | | | + + + + + + + + | Specimen | + + | | + + + + + + + | Performing | Address | City/State/Zipcode | Phone Number | | Organization | | | | + + + + + | [facility] | [address] | [place] [address] | [phone] | + + + + + Phosphorus (08/27/2019 5:10 AM PST) + + + + + + | Component | Value | Ref Range | Performed | Pathologist | | | | | At | Signature | + + + + + + | Phosphorus | 3.8Comment: Testing | 2.3 - 4.8 mg/dL | [facility] | | | | performed at [facility], [address] | | LABORATORY | | | | [address], | | | | | | [place] [address] | | | | + + + + + + + + | Specimen | + + | Blood | + + + + + + + | Performing | Address | City/State/Zipcode | Phone Number | | Organization | | | | + + + + + | [facility] | [address] | [place] [address] | [phone] | + + + + + Magnesium (08/27/2019 5:10 AM PST) + + + + + + | Component | Value | Ref Range | Performed | Pathologist | | | | | At | Signature | + + + + + + | Magnesium | 2.2Comment: Testing | 1.7 - 2.4 mg/dL | [facility] | | | | performed at [facility], [address] | | LABORATORY | | | | [address], | | | | | | [place] [address] | | | | + + + + + + + + | Specimen | + + | Blood | + + + + + + + | Performing | Address | City/State/Zipcode | Phone Number | | Organization | | | | + + + + + | [facility] | [address] | [place] [address] | [phone] | + + + + + Basic [...] | | | | | [place] [address] | | | | + + + + + + + + | Specimen | + + | Blood | + + + + + + + | Performing | Address | City/State/Zipcode | Phone Number | | Organization | | | | + + + + + | [facility] | [address] | [place] [address] | [phone] | + + + + + CBC [...] | | [facility], [address] [facility] | | | | | | [place] | | | | | | [address] | | | | + + + + + + + + | Specimen | + + | Blood | + + + + + + + | Performing | Address | City/State/Zipcode | Phone Number | | Organization | | | | + + + + + | [facility] | [address] | [place] [address] | [phone] | + + + + + POC Glucose (08/27/2019 4:06 AM PST) + + + + + + | Component | Value | Ref Range | Performed | Pathologist | | | | | At | Signature | + + + + + + | Glucose, | 81Comment: Testing | 65 - 99 mg/dL | [facility] | | | POC | performed at [facility];[address] | | LABORATORY | | | | [address];[place], [place] | | | | | | [address] | | | | + + + + + + + + | Specimen | + + | | + + + + + + + | Performing | Address | City/State/Zipcode | Phone Number | | Organization | | | | + + + + + | [facility] | [address] | [place] [address] | [phone] | + + + + + POC [...] | | LABORATORY | | | | [address] [facility];[place], [place] | | | | | | [address] | | | | + + + + + + + + | Specimen | + + | | + + + + + + + | Performing | Address | City/State/Zipcode | Phone Number | | Organization | | | | + + + + + | [facility] | [address] | [place] [address] | [phone] | + + + + + Surgical [...] | rectum (see [id number]). As part of [facility]' Quality | | | Improvement Program, this [...] surfaceis barker-yellow and lobulated. | | | Production Operations Engineer sections are submitted in cassette (A1). B. [...] is barker-yellow and | | | lobulated. Production Operations Engineer sections are submitted incassette (B1). | | [...] component was performed | | | by [facility] [address] (Medical | | | Director: Yenny Young MD; CLIA# [id number]). Professional | | | [facility] | | | [address] [address] (Medical | | | Director: Kenyon Delacruz M.D.; CLIA#: [id number]). REASON FOR | | | ADDENDUM:Results of [...] | | | preparation) was performed at [facility]. | | | Interpretation was performed at [facility]. | | | Immunohistochemical studies and/or special stains were performed on | | | this case with the appropriate controls, which stain appropriately. | | | These tests were developed and their performance characteristics | | | determined by [facility] and/or [facility]. These tests | | | may have not been cleared or approved by the U.S. Food and Drug | | | Administration. The FDA has determined that suchclearance or | | | approval is not necessary. [facility] and [facility] are certified | | | under the [...] designed to | | | detect V600E (T1302D). Some non-V600E mutations, V600K, V600D, and | [...] | analysis test have been determined by [facility], [address] | | [address] [place], [place],but have not been cleared or [...] | | analysis tests were performed at [facility], [address] [place] [address] Av | | | [address] [place] [address] (Lab Engineer: Gaudencio Lira MD; IA# | | | [id number]). REASON FOR ADDENDUM:This case is addended for the | | | addition of BRAF and KRAS Mutation Analysis results. ADDENDUM | | | PATHOLOGIC DIAGNOSIS:[id number], [id number] BIOPSY: Mutation DETECTED | | | - [...] colorectal cancer. J Clin Oncol 2008; 26(35): 3711-0178. doi: | | | 10.1200/JCO.2008.18.65432. Arnel IG, Alexis M, Boateng M, et al. | | | Wild-type KRAS is required for panitunumab efficacy in patients with | | | metastatic colorectal cancer. J Clin Oncol 2008; 26:3815-6011. | | | doi:10.1200/JCO.2007.14.71024. Gilda PATTON, Cheli MENDOZA, Ean A, et | | | al. Extended TAO mutations and anti-EGFR monoclonal antibody survival | | | benefit in metastatic colorectal cancer: a meta-analysis of | | | randomized, controlled trials.Annals of Oncol 2014; 26(1): 13-21. doi: | | | 10.1093/annonc/tqd977 4. Navi HERMOSILLO, Melissa RODRIGUEZ. KRAS | | | Mutation: Should We Test for It, and Does It Matter? J Clin Oncol | | | 2013; 31:7834-1179. doi: 10.1200/JCO.2012.43.0454 ADDENDUM CLINICAL | | | [...] | | paraffin tissue block B1, numbered [id number], belonging to patient | | | ARLENE ROJAS. Diagnostician: Nicanor Elias | | | DOPathologistDiagnostician: Kenyon Delacruz | | | MDPathologistDiagnostician: Prieto Brito MT([facility]) | | | MBPathologistDiagnostician: Demi [...] | | LABORATORY | | | | [address]vd;[place] [address] | | | | + + + + + + + + | Specimen | + + | Blood | + + + + + + + | Performing | Address | City/State/Zipcode | Phone Number | | Organization | | | | + + + + + | [facility] | [address] | [place] [address] | [phone] | + + + + + Protime INR (08/26/2019 4:25 AM PST) + + + + + + | Component | Value | Ref Range | Performed | Pathologist | | | | | At | Signature | + + + + + + | INR | 1.1Comment: REFERENCE | | [facility] | | | | RANGE:0.9 - [...] | performed at [facility];[address] | | | | | | [facility];[place], [place] | | | | | | [address] | | | | + + + + + + + + | Specimen | + + | Blood | + + + + + + + | Performing | Address | City/State/Zipcode | Phone Number | | Organization | | | | + + + + + | [facility] | [address] | [place] [address] | [phone] | + + + + + Ferritin [...] | | | | | [place] [address] | | | | + + + + + + + + | Specimen | + + | Blood | + + + + + + + | Performing | Address | City/State/Zipcode | Phone Number | | Organization | | | | + + + + + | [facility] | [address] | [place] [address] | [phone] | + + + + + Iron [...] | | | | | [place] [address] | | | | + + + + + + + + | Specimen | + + | Blood | + + + + + + + | Performing | Address | City/State/Zipcode | Phone Number | | Organization | | | | + + + + + | [facility] | [address] | [place] [address] | [phone] | + + + + + CBC [...] | | LABORATORY | | | | [place], | | | | | | [place] [address] | | | | + + + + + + + + | Specimen | + + | Blood | + + + + + + + | Performing | Address | City/State/Zipcode | Phone Number | | Organization | | | | + + + + + | [facility] | [address] | [place] [address] | [phone] | + + + + + Basic [...] >60Comment: GFR <60: | >60 | [facility] | | | GFR | [...] W | | | | | | [place], | | | | | | [place] [address] | | | | + + + + + + + + | Specimen | + + | Blood | + + + + + + + | Performing | Address | City/State/Zipcode | Phone Number | | Organization | | | | + + + + + | [facility] | [address] | [place] [address] | [phone] | + + + + + Urinalysis [...] - 1.030 | [facility] | | | [place], | | | LABORATORY | | | [...] | NONE SEENComment: | NONE | [facility] | | | | Testing performed at | | LABORATORY | | | | [facility];[address];[place] [address] | | | | + + + [...] + + + + + | [facility] | [address] | [place] [address] | [phone] | + + + + + Comprehensive [...] >60Comment: GFR <60: | >60 | [facility] | | | GFR | [...] | performed at [facility];[address] | | | | | | [facility];[place], [place] | | | | | | [address] | | | | + + + + + + + + | Specimen | + + | Blood | + + + + + + + | Performing | Address | City/State/Zipcode | Phone Number | | Organization | | | | + + + + + | [facility] | [address] | [place] [address] | [phone] | + + + + + CBC [...] | LABORATORY | | | | [address];[place] | | | | | | [address] | | | | + + + + + + + + | Specimen | + + | Blood | + + + + + + + | Performing | Address | City/State/Zipcode | Phone Number | | Organization | | | | + + + + + | [facility] | [address] | [place] [address] | [phone] | + + + + + documented [...]
--- OUTSIDE RECORDS SUMMARY | ~2019-10-12 | XMS | Encounter Summary ---
Demographics + + + | Address | [address] | | | [place] [address] | + + + | Home Phone | | + + + | Preferred Language | Unknown | + + + | Marital Status | | + + + | Restoration Affiliation | Unknown | + + + [...] Team Providers + +------+ + | Care Film Examiner Name | Role | Phone | + [...] + + | 08/25/ | Hospital | [facility] | Enio Lange, | Colorectal tumor | | 2019 - | Encounter | [facility] [address] | MD [address] | (Primary Dx); Rectal | | | | [address] | [place] [address] | obstruction; | | 08/30/ | | [place], [place] | [phone] | Colorectal tumor; | | 2019 | | [address] | | Rectal obstruction; | | | | [phone] | Errol Mart MD | Anemia, unspecified | | | | | [address] | type; Essential | | | | | [place] [address] | hypertension | | | | | [phone] | | | | | | | | | | | | Giuliano Villaseñor, | | | | | | [address] | | | | | | [address] | | | | | | [place] [address] | | | | | | [phone] | | | | | | | | | | | | Jasmin Barker MD | | | | | | [address] | | | | | | [place] [address] | | | | | | [phone] | | | | | | | [...] CENTER placemen t. He was accepted at [facility]. Referral to a local oncologist was sent. He will follow up with surgery in 2 weeks. Past Medical History: Past Medical History: Diagnosis Date Hyperlipidemia Hypertension 2004 Tobacco abuse Past Surgical History: Procedure Laterality Date COLOSTOMY N/A 08/26/2019 Procedure: LAPAROSCOPIC COLOSTOMY CREATION; Surgeon: Phong Tyson MD; Location: [facility] MAIN OR OTHER SURGICAL HISTORY Left 1984 ORIF ANKLE FRACTURE OTHER SURGICAL HISTORY Bilateral 2016 CATARACT EXTRACTION SIGMOIDOSCOPY N/A 08/26/2019 Procedure: SIGMOIDOSCOPY FLEXIBLE; Surgeon: Phong Tyson MD; Location: [facility] MAIN OR Discharged Condition: Stable for discharge [...] input(s): ABG Disposition: Follow up: [facility] [place] [address] [address] [facility] [address] Go on 09/11/2019 You have an appointment at 0930 on 09/11/2019 with Lizette MOYA [address] [phone] Phong Tyson MD [address] [place] [phone] Schedule an appointment as soon as possible [...] 2 weeks (until his post-op a ppointment) [facility], later [facility] starter kit ordered with pt's permission # [id number] Thank you for allowing me to participate [...] Rojas 78 y.o. 1940 Med. Record Number: [id number] Date of admission: 08/25/2019 Service(s): Colorectal Surgery [...] nursing note reviewed. Exam conducted with a faith doctor present. Cardiovascular: Rate and Rhythm: Normal rate. [...] there is a heme/onc Dr in the [facility] (where they live). HTN BP's remain low-normal [...] 28.00 kg/m Physical exam: AOx3 NAD [place] Heart RRR Lungs CTa Abd SNTND +BS Ostomy has stool output Giuliano Villaseñor DO 08/28/2019 2:50 PM Sree Smith ARN P - 08/28/2019 8:17 AM PST Colorectal Surgery Progress Note Pt. Name/Age/: Arlene Rojas 78 y.o. 1940 Med. Record Number: [id number] Date of admission: 08/25/2019 Service(s): Colorectal Surgery [...] nursing note reviewed. Exam conducted with a faith doctor present. Cardiovascular: Rate and Rhythm: Normal rate. [...] Encourage ambulation 2. General diet ok 3. 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 Confirmed EVENT OPERATIONS MANAGER medications with patient and insurance fill history. Adjusted EVENT OPERATIONS MANAGER medications according to the reprographics technician note below. - removed lopermaide. Per [...] [address] | | | | | | [place] [address] | | | | | | [phone] | | | | | | | [...] J?MRN: | | | | | | [id number] | | | [id number] | | | riteri | | | [...] | | | St. | | | [place] | | | y | | | [...] | | | St. | | | [place] | | | y H. | | [...] | | | St. | | | [place] | | | y H. | | [...] | | | 1-103a | | | [id number] | | | 41 | | | [...] | | | | performed at [facility], [address] | | | | | | [facility], | | | | | | [place] [address] | | | | + + + + + + + + | Specimen | + + | Blood | + + + + + + + | Performing | Address | City/State/Zipcode | Phone Number | | Organization | | | | + + + + + | [facility] | [address] | [place] [address] | [phone] | + + + + + CBC [...] | | Absolute | performed at [facility], [address] | K/uL | LABORATORY | | | | [address], | | | | | | [place] [address] | | | | + + + + + + + + | Specimen | + + | Blood | + + + + + + + | Performing | Address | City/State/Zipcode | Phone Number | | Organization | | | | + + + + + | [facility] | [address] | [place] [address] | [phone] | + + + + + Phosphorus (08/29/2019 4:53 AM PST) + + + + + + | Component | Value | Ref Range | Performed | Pathologist | | | | | At | Signature | + + + + + + | Phosphorus | 3.0Comment: Testing | 2.3 - 4.8 mg/dL | [facility] | | | | performed at [facility];[address] | | LABORATORY | | | | [address];[place], [place] | | | | | | [address] | | | | + + + + + + + + | Specimen | + + | Blood | + + + + + + + | Performing | Address | City/State/Zipcode | Phone Number | | Organization | | | | + + + + + | [facility] | [address] | [place] [address] | [phone] | + + + + + Magnesium (08/29/2019 4:53 AM PST) + + + + + + | Component | Value | Ref Range | Performed | Pathologist | | | | | At | Signature | + + + + + + | Magnesium | 1.7Comment: Testing | 1.7 - 2.4 mg/dL | [facility] | | | | performed at [facility] | | LABORATORY | | | | [facility];[place], [place] | | | | | | [address] | | | | + + + + + + + + | Specimen | + + | Blood | + + + + + + + | Performing | Address | City/State/Zipcode | Phone Number | | Organization | | | | + + + + + | [facility] | [address] | [place] [address] | [phone] | + + + + + Basic [...] | >60Comment: GFR <60: | >60 | [facility] | | | GFR | CHRONIC KIDNEY [...] | | | | | performed at [facility];[address] | | | | | | [facility];[place], [place] | | | | | | [address] | | | | + + + + + + + + | Specimen | + + | Blood | + + + + + + + | Performing | Address | City/State/Zipcode | Phone Number | | Organization | | | | + + + + + | [facility] | [address] | [place] [address] | [phone] | + + + + + CBC [...] | | | Absolute | performed at [facility];[address] | [address] | LABORATORY | | | | [address];[place], [place] | | | | | | [address] | | | | + + + + + + + + | Specimen | + + | Blood | + + + + + + + | Performing | Address | City/State/Zipcode | Phone Number | | Organization | | | | + + + + + | [facility] | [address] | [place] [address] | [phone] | + + + + + POC [...] | | | POC | performed at [facility];[address] | | LABORATORY | | | | [address];[place], [place] | | | | | | [address] | | | | + + + + + + + + | Specimen | + + | | + + + + + + + | Performing | Address | City/State/Zipcode | Phone Number | | Organization | | | | + + + + + | [facility] | [address] | [place] [address] | [phone] | + + + + + POC Glucose (08/28/2019 12:11 PM PST) + + + + + + | Component | Value | Ref Range | Performed | Pathologist | | | | | At | Signature | + + + + + + | Glucose, | 101 (H)Comment: Testing | 65 - 99 mg/dL | [facility] | | | POC | performed at [facility];[address] | | LABORATORY | | | | [address];[place] | | | | | | [address] | | | | + + + + + + + + | Specimen | + + | | + + + + + + + | Performing | Address | City/State/Zipcode | Phone Number | | Organization | | | | + + + + + | [facility] | [address] | [place] [address] | [phone] | + + + + + POC Glucose (08/28/2019 8:48 AM PST) + + + + + + | Component | Value | Ref Range | Performed | Pathologist | | | | | At | Signature | + + + + + + | Glucose, | 98Comment: Testing | 65 - 99 mg/dL | [facility] | | | POC | performed at [facility];[address] | | LABORATORY | | | | [address];[place] | | | | | | [address] | | | | + + + + + + + + | Specimen | + + | | + + + + + + + | Performing | Address | City/State/Zipcode | Phone Number | | Organization | | | | + + + + + | [facility] | [address] | [place] [address] | [phone] | + + + + + Phosphorus (08/28/2019 4:18 AM PST) + + + + + + | Component | Value | Ref Range | Performed | Pathologist | | | | | At | Signature | + + + + + + | Phosphorus | 2.1 (L)Comment: Testing | 2.3 - 4.8 mg/dL | [facility] | | | | performed at [facility], [address] | | LABORATORY | | | | [address], | | | | | | [place] [address] | | | | + + + + + + + + | Specimen | + + | Blood | + + + + + + + | Performing | Address | City/State/Zipcode | Phone Number | | Organization | | | | + + + + + | [facility] | [address] | [place] [address] | [phone] | + + + + + Magnesium [...] | | | | | [place] [address] | | | | + + + + + + + + | Specimen | + + | Blood | + + + + + + + | Performing | Address | City/State/Zipcode | Phone Number | | Organization | | | | + + + + + | [facility] | [address] | [place] [address] | [phone] | + + + + + Basic [...] | | | | performed at [facility], [address] | | | | | | [facility], | | | | | | [place] [address] | | | | + + + + + + + + | Specimen | + + | Blood | + + + + + + + | Performing | Address | City/State/Zipcode | Phone Number | | Organization | | | | + + + + + | [facility] | [address] | [place] [address] | [phone] | + + + + + CBC [...] | | | | | [place] [address] | | | | + + + + + + + + | Specimen | + + | Blood | + + + + + + + | Performing | Address | City/State/Zipcode | Phone Number | | Organization | | | | + + + + + | [facility] | [address] | [place] [address] | [phone] | + + + + + POC Glucose (08/27/2019 8:35 PM PST) + + + + + + | Component | Value | Ref Range | Performed | Pathologist | | | | | At | Signature | + + + + + + | Glucose, | 129 (H)Comment: Testing | 65 - 99 mg/dL | [facility] | | | POC | performed at [facility];[address] | | LABORATORY | | | | [address];[place] | | | | | | [address] | | | | + + + + + + + + | Specimen | + + | | + + + + + + + | Performing | Address | City/State/Zipcode | Phone Number | | Organization | | | | + + + + + | [facility] | [address] | [place] [address] | [phone] | + + + + + POC Glucose (08/27/2019 12:05 PM PST) + + + + + + | Component | Value | Ref Range | Performed | Pathologist | | | | | At | Signature | + + + + + + | Glucose, | 99Comment: Testing | 65 - 99 mg/dL | [facility] | | | POC | performed at [facility];[address] | | LABORATORY | | | | [address];[place], [place] | | | | | | [address] | | | | + + + + + + + + | Specimen | + + | | + + + + + + + | Performing | Address | City/State/Zipcode | Phone Number | | Organization | | | | + + + + + | [facility] | [address] | [place] [address] | [phone] | + + + + + POC Glucose (08/27/2019 8:01 AM PST) + + + + + + | Component | Value | Ref Range | Performed | Pathologist | | | | | At | Signature | + + + + + + | Glucose, | 85Comment: Testing | 65 - 99 mg/dL | [facility] | | | POC | performed at [facility];[address] | | LABORATORY | | | | [address];[place] | | | | | | [address] | | | | + + + + + + + + | Specimen | + + | | + + + + + + + | Performing | Address | City/State/Zipcode | Phone Number | | Organization | | | | + + + + + | [facility] | [address] | [place] [address] | [phone] | + + + + + Phosphorus (08/27/2019 5:10 AM PST) + + + + + + | Component | Value | Ref Range | Performed | Pathologist | | | | | At | Signature | + + + + + + | Phosphorus | 3.8Comment: Testing | 2.3 - 4.8 mg/dL | [facility] | | | | performed at [facility], [address] | | LABORATORY | | | | [address], | | | | | | [place] [address] | | | | + + + + + + + + | Specimen | + + | Blood | + + + + + + + | Performing | Address | City/State/Zipcode | Phone Number | | Organization | | | | + + + + + | [facility] | [address] | [place] [address] | [phone] | + + + + + Magnesium (08/27/2019 5:10 AM PST) + + + + + + | Component | Value | Ref Range | Performed | Pathologist | | | | | At | Signature | + + + + + + | Magnesium | 2.2Comment: Testing | 1.7 - 2.4 mg/dL | [facility] | | | | performed at [facility], [address] | | LABORATORY | | | | [address], | | | | | | [place] [address] | | | | + + + + + + + + | Specimen | + + | Blood | + + + + + + + | Performing | Address | City/State/Zipcode | Phone Number | | Organization | | | | + + + + + | [facility] | [address] | [place] [address] | [phone] | + + + + + Basic [...] | >60Comment: GFR <60: | >60 | [facility] | | | GFR | CHRONIC KIDNEY [...] | | | | | | MDRD IDSC traceable | | | | | | equation.Testing | | | | | | performed at [facility], [address] | | | | | | [facility], | | | | | | [place] [address] | | | | + + + + + + + + | Specimen | + + | Blood | + + + + + + + | Performing | Address | City/State/Zipcode | Phone Number | | Organization | | | | + + + + + | [facility] | [address] | [place] [address] | [phone] | + + + + + CBC [...] | | | | | | [facility], [address] [facility] | | | | | | [place] | | | | | | [address] | | | | + + + + + + + + | Specimen | + + | Blood | + + + + + + + | Performing | Address | City/State/Zipcode | Phone Number | | Organization | | | | + + + + + | [facility] | [address] | [place] [address] | [phone] | + + + + + POC Glucose (08/27/2019 4:06 AM PST) + + + + + + | Component | Value | Ref Range | Performed | Pathologist | | | | | At | Signature | + + + + + + | Glucose, | 81Comment: Testing | 65 - 99 mg/dL | [facility] | | | POC | performed at [facility];[address] | | LABORATORY | | | | [address];[place], [place] | | | | | | [address] | | | | + + + + + + + + | Specimen | + + | | + + + + + + + | Performing | Address | City/State/Zipcode | Phone Number | | Organization | | | | + + + + + | [facility] | [address] | [place] [address] | [phone] | + + + + + POC Glucose (08/26/2019 9:14 PM PST) + + + + + + | Component | Value | Ref Range | Performed | Pathologist | | | | | At | Signature | + + + + + + | Glucose, | 101 (H)Comment: Testing | 65 - 99 mg/dL | [facility] | | | POC | performed at [facility];[address] | | LABORATORY | | | | [address];[place], [place] | | | | | | [address] | | | | + + + + + + + + | Specimen | + + | | + + + + + + + | Performing | Address | City/State/Zipcode | Phone Number | | Organization | | | | + + + + + | [facility] | [address] | [place] [address] | [phone] | + + + + + Surgical [...] of the | | | rectum (see [id number]). As part of [employer]' Quality | | | Improvement Program, this [...] surfaceis barker-yellow and lobulated. | | | Franchise Sales Representative sections are submitted in cassette (A1). [...] is barker-yellow and | | | lobulated. Franchise Sales Representative sections are submitted incassette (B1). | [...] component was performed | | | by [employer], [address] [place] [address] (Medical | | | Director: Yenny Young MD; CLIA# [id number]). Professional | | | interpretation was performed by[employer], [facility] | | | [address] [address] (Medical | | | Director: Kenyon Delacruz M.D.; CLIA#: [id number]). REASON FOR | | | ADDENDUM:Results of [...] | | | preparation) was performed at [facility]. | | | Interpretation was performed at [facility]. | | | Immunohistochemical studies and/or special stains were performed on | | | this case with the appropriate controls, which stain appropriately. | | | These tests were developed and their performance characteristics | | | determined by [facility] and/or [facility]. These tests | | | may have not been cleared or approved by the U.S. Food and Drug | | | Administration. The FDA has determined that suchclearance or | | | approval is not necessary. [facility] and [facility] are certified | | | under the [...] designed to | | | detect V600E ([id number]). Some non-V600E mutations, V600K, V600D, and | [...] | analysis test have been determined by [employer], [address] | | [address] [place], [place],but have not been cleared or approved [...] | | analysis tests were performed at [employer], [address] | | | [place] [address] (Economic Development Manager: Gaudencio Lira MD; CLIA# | | | [id number]). REASON FOR ADDENDUM:This case is addended for the | | | addition of BRAF and KRAS Mutation Analysis results. ADDENDUM | | | PATHOLOGIC DIAGNOSIS:[id number], N0MLIYLWN BIOPSY: Mutation DETECTED | | | - [...] colorectal cancer. J Clin Oncol 2008; 26(35): 1533-7747. doi: | | | 10.1200/JCO.2008.18.85731. Arnel IG, Alexis M, Boateng M, et al. | | | Wild-type KRAS is required for panitunumab efficacy in patients with | | | metastatic colorectal cancer. J Clin Oncol 2008; 26:1840-0506. | | | doi:10.1200/JCO.2007.14.39451. Gilda PATTON, Cheli MENDOZA, Ean A, et | | | al. Extended TAO mutations and anti-EGFR monoclonal antibody survival | | | benefit in metastatic colorectal cancer: a meta-analysis of | | | randomized, controlled trials.Annals of Oncol 2014; 26(1): 13-21. doi: | | | 10.1093/annon/omx999 4. Navi HERMOSILLO, Melissa RODRIGUEZ. KRAS | | | Mutation: Should We Test for It, and Does It Matter? J Clin Oncol | | | 2013; 31:1008-3755. doi: 10.1200/JCO.2012.43.0454 ADDENDUM CLINICAL | | | [...] | | paraffin tissue block B1, numbered [id number], belonging to patient | | | ARLENE ROJAS. Diagnostician: Nicanor Elias | | | DOPathologistDiagnostician: Kenyon Delacruz | | | MDPathologistDiagnostician: Prieto Brito MT([facility]) | | | MBPathologistDiagnostician: Demi Bearden [...] | | LABORATORY | | | | Blvd;[place] [address] | | | | + + + + + + + + | Specimen | + + | Blood | + + + + + + + | Performing | Address | City/State/Zipcode | Phone Number | | Organization | | | | + + + + + | [facility] | [address] | [place] [address] | [phone] | + + + + + Enriqueta [...] | | | | | performed at [facility] | | | | | | [address];[place], [place] | | | | | | [address] | | | | + + + + + + + + | Specimen | + + | Blood | + + + + + + + | Performing | Address | City/State/Zipcode | Phone Number | | Organization | | | | + + + + + | [facility] | [address] | [place] [address] | [phone] | + + + + + Ferritin (08/26/2019 4:25 AM PST) + + + + + + | Component | Value | Ref Range | Performed | Pathologist | | | | | At | Signature | + + + + + + | Ferritin | 144Comment: Testing | 11 - 450 ng/mL | [facility] | | | | performed at [facility], [address] | | LABORATORY | | | | [address], | | | | | | [place] [address] | | | | + + + + + + + + | Specimen | + + | Blood | + + + + + + + | Performing | Address | City/State/Zipcode | Phone Number | | Organization | | | | + + + + + | [facility] | [address] | [place] [address] | [phone] | + + + + + Iron [...] | | | | | [place] [address] | | | | + + + + + + + + | Specimen | + + | Blood | + + + + + + + | Performing | Address | City/State/Zipcode | Phone Number | | Organization | | | | + + + + + | [facility] | [address] | [place] [address] | [phone] | + + + + + CBC [...] [address], | | | | | | [place] [address] | | | | + + + + + + + + | Specimen | + + | Blood | + + + + + + + | Performing | Address | City/State/Zipcode | Phone Number | | Organization | | | | + + + + + | [facility] | [address] | [place] [address] | [phone] | + + + + + Basic [...] | >60Comment: GFR <60: | >60 | [facility] | | | GFR | CHRONIC KIDNEY [...] | | | | performed at [facility], [address] | | | | | | [facility], | | | | | | [place] [address] | | | | + + + + + + + + | Specimen | + + | Blood | + + + + + + + | Performing | Address | City/State/Zipcode | Phone Number | | Organization | | | | + + + + + | [facility] | [address] | [place] [address] | [phone] | + + + + + Urinalysis [...] - 1.030 | [facility] | | | [place], | | | LABORATORY | | | [...] | | LABORATORY | | | | [facility];[address] [place] [address] | | | | | | Blvd;[place] [address] | | | | + + + [...] | + + + + + | [facility] | [address] | [place] [address] | [phone] | + + + + + Comprehensive [...] | >60Comment: GFR <60: | >60 | [facility] | | | GFR | CHRONIC KIDNEY [...] | | | | | MDRD [facility] traceable | | | | | | equation.Testing | | | | | | performed at [facility];[address] | | | | | | [facility];[place], [place] | | | | | | [address] | | | | + + + + + + + + | Specimen | + + | Blood | + + + + + + + | Performing | Address | City/State/Zipcode | Phone Number | | Organization | | | | + + + + + | [facility] | [address] | [place] [address] | [phone] | + + + + + CBC [...] | | | Absolute | performed at [facility];[address] | [address] | LABORATORY | | | | [address];[place] | | | | | | [id number] | | | | + + + + + + + + | Specimen | + + | Blood | + + + + + + + | Performing | Address | City/State/Zipcode | Phone Number | | Organization | | | | + + + + + | [facility] | [address] | [place] [address] | [phone] | + + + + + documented [...] | | | | | | longer, [email or web address] use of | | | | | [...]
--- OUTSIDE RECORDS SUMMARY | ~2019-10-12 | XMS | Encounter Summary ---
Demographics + + + | Address | [address] | | | [place] [address] | + + + | Home Phone | | + + + | Preferred Language | Unknown | + + + | Marital Status | | + + + | Mosque Affiliation | Unknown | + + + [...] Team Providers + +------+ + | Care Residential Air Sealing Technician Name | Role | Phone | [...] Trung AYALA | | | | | [phone] | [place] [address] | | +--------+ + + + + [...] [address] | | | | | | [place] [address] | | | | | | [phone] | | | | | | | [...]
--- OUTSIDE RECORDS SUMMARY | ~2019-10-12 | XMS | Encounter Summary ---
Demographics + + + | Address | [address] | | | [place] [address] | + + + | Home Phone | | + + + | Preferred Language | Unknown | + + + | Marital Status | | + + + | Pentecostalism Affiliation | Unknown | + + + | Race | Unknown | + + + | Ethnic Group | Unknown | + + + Author + + + | Author | [facility] | | | and [place] | + + + | Organization | [facility] | | | and [...] Team Providers + +------+ + | Care Fish Hatchery Man Name | Role | Phone | + [...] Trung AYALA | | | | | [phone] | [place] [address] | | +--------+ + + + + [...] [address] | | | | | | [place] [address] | | | | | | [phone] | | | | | | | [...]
--- OUTSIDE RECORDS SUMMARY | ~2019-10-12 | XMS | Encounter Summary ---
Demographics + + + | Address | [address] | | | [place] [address] | + + + | Home Phone | | + + + | Preferred Language | Unknown | + + + | Marital Status | | + + + | Congregational Affiliation | Unknown | + + + [...] Providers + +------+ + | Care Manager Clinical Name | Role | Phone | + [...] + + | 08/25/ | Hospital | [facility] | Enio Lange, | Colorectal tumor | | 2019 - | Encounter | [facility] [address] | MD [address] | (Primary Dx); Rectal | | | | [address] | [place] [address] | obstruction; | | 08/30/ | | [place], [place] | [phone] | Colorectal tumor; | | 2019 | | [address] | | Rectal obstruction; | | | | [phone] | Errol Mart MD | Anemia, unspecified | | | | | [address] | type; Essential | | | | | [place] [address] | hypertension | | | | | [phone] | | | | | | | | | | | | Giuliano Villaseñor, | | | | | | [address] | | | | | | [address] | | | | | | [place] [address] | | | | | | [phone] | | | | | | | | | | | | Jasmin Barker MD | | | | | | [address] | | | | | | [place] [address] | | | | | | [phone] | | | | | | | [...] Barker MD - 08/30/2019 2:[address] [facility] Service: Hospitalist Physician Discharge Summary Patient [...] CENTER placemen t. He was accepted at [facility]. Referral to a local oncologist was sent. He will follow up with surgery in 2 weeks. Past Medical History: Past Medical History: Diagnosis Date Hyperlipidemia Hypertension 2004 Tobacco abuse Past Surgical History: Procedure Laterality Date COLOSTOMY N/A 08/26/2019 Procedure: LAPAROSCOPIC COLOSTOMY CREATION; Surgeon: Phong Tyson MD; Location: [facility] MAIN OR OTHER SURGICAL HISTORY Left 1984 ORIF ANKLE FRACTURE OTHER SURGICAL HISTORY Bilateral 2016 CATARACT EXTRACTION SIGMOIDOSCOPY N/A 08/26/2019 Procedure: SIGMOIDOSCOPY FLEXIBLE; Surgeon: Phong Tyson MD; Location: [facility] MAIN OR Discharged Condition: Stable for discharge [...] input(s): ABG Disposition: Follow up: GRIFFIN [place] [address] [facility] [address] Go on 09/11/2019 You have an appointment at 0930 on 09/11/2019 with Lizette MOYA [address] [phone] Phong Tyson MD [address] [place] [address] Schedule an appointment as soon as possible [...] Gonzalez RN - 08/29/2019 2:[address] [facility] Service: Ostomy Care Consult Note Hospital [...] 2 weeks (until his post-op a ppointment) [facility] starter kit ordered with pt's permission # [id number] Thank you for allowing me to participate in the care of this patient. Soledad Berger RN, CWON 08/29/2019 14:04 Jasmin Herrmann MD - 08/29/2019 1:18 PM PSTFormatting of this note might be different from the or iginal. [facility] Service: Hospitalist Progress Note Hospital Day: [...] Rojas 78 y.o. 1940 Med. Record Number: [id number] Date of admission: 08/25/2019 Service(s): Colorectal Surgery [...] nursing note reviewed. Exam conducted with a correction warden present. Cardiovascular: Rate and Rhythm: Normal rate. [...] there is a heme/onc Dr in the [facility] (where they live). HTN BP's remain low-normal [...] BMI 28.00 kg/m Physical exam: AOx3 NAD HOONAH Heart RRR Lungs CTa Abd SNTND +BS Ostomy has stool output Giuliano Villaseñor DO 08/28/2019 2:50 PM Sree Smith ARN P - 08/28/2019 8:17 AM PST Colorectal Surgery Progress Note Pt. Name/Age/: Arlene Rojas 78 y.o. 1940 Med. Record Number: [id number] Date of admission: 08/25/2019 Service(s): Colorectal Surgery [...] nursing note reviewed. Exam conducted with a correction warden present. Cardiovascular: Rate and Rhythm: Normal rate. [...] dextrose 10%, hydrALAZINE, HYDROmorphone, HYDROmorphone, ondansetron, ondanse sadnhya, oxyCODONE, oxyCODONE, polyethylene glycol, senna, traZODone Assessment 78 y.o. male 2 Days Post-Op s/p laparoscopic colostomy Plan / Recommendations 1. Encourage ambulation 2. General diet ok 3. jig operator consult and teaching AARON Bull 11:50 AM; [...] BMI 28.00 kg/m Physical exam: NAD AOx3 HOONAH Heart RRR Lungs CTA Abd SNTND +BS [...] BMI 28.00 kg/m Physical exam: AOx3 NAD HOONAH Heart RRR Lungs CTA Abd SNTND ostomy [...] Larsen RN 08/26/19 @7:47 AM Valentín Navarro, [facility] - 08/25/2019 7:41 PM PSTRx Admission Medication History Note I have reviewed the medication history for appropriate doses obtained by: ED Pharmacist After reviewing the home medication list : I agree with the home medications list. Confirmed CASE WORK AIDE medications with patient and insurance fill history. Adjusted CASE WORK AIDE medications according to the orthodontic lab technician note below. - removed lopermaide. Per [...] [address] | | | | | | [place] [address] | | | | | | [phone] | | | | | | | [...] J?MRN: | | | | | | [id number] | | | [id number] | | | riteri | | | [...] | | | St. | | | [place] | | | y | | | [...] | | | St. | | | [place] | | | y H. | | [...] | | | St. | | | [place] | | | y H. | | [...] | | | 1-103a | | | [id number] | | | 41 | | | [...] | | | | | performed at [facility], [address] | | | | | | [facility], | | | | | | [place] [address] | | | | + + + + + + + + | Specimen | + + | Blood | + + + + + + + | Performing | Address | City/State/Zipcode | Phone Number | | Organization | | | | + + + + + | [facility] | [address] | [place] [address] | [phone] | + + + + + CBC [...] | | | Absolute | performed at [facility], [address] | K[address] | LABORATORY | | | | [address], | | | | | | [place] [address] | | | | + + + + + + + + | Specimen | + + | Blood | + + + + + + + | Performing | Address | City/State/Zipcode | Phone Number | | Organization | | | | + + + + + | [facility] | [address] | [place] [address] | [phone] | + + + + + Phosphorus (08/29/2019 4:53 AM PST) + + + + + + | Component | Value | Ref Range | Performed | Pathologist | | | | | At | Signature | + + + + + + | Phosphorus | 3.0Comment: Testing | 2.3 - 4.8 mg/dL | [facility] | | | | performed at [facility];[address] | | LABORATORY | | | | [address];[place], [place] | | | | | | [address] | | | | + + + + + + + + | Specimen | + + | Blood | + + + + + + + | Performing | Address | City/State/Zipcode | Phone Number | | Organization | | | | + + + + + | [facility] | [address] | [place] [address] | [phone] | + + + + + Magnesium (08/29/2019 4:53 AM PST) + + + + + + | Component | Value | Ref Range | Performed | Pathologist | | | | | At | Signature | + + + + + + | Magnesium | 1.7Comment: Testing | 1.7 - 2.4 mg/dL | [facility] | | | | performed at [facility] | | LABORATORY | | | | [facility];[place], [place] | | | | | | [address] | | | | + + + + + + + + | Specimen | + + | Blood | + + + + + + + | Performing | Address | City/State/Zipcode | Phone Number | | Organization | | | | + + + + + | [facility] | [address] | [place] [address] | [phone] | + + + + + Basic [...] | >60Comment: GFR <60: | >60 | [facility] | | | GFR | [...] | | | | | performed at [facility];[address] | | | | | | [facility];[place], [place] | | | | | | [address] | | | | + + + + + + + + | Specimen | + + | Blood | + + + + + + + | Performing | Address | City/State/Zipcode | Phone Number | | Organization | | | | + + + + + | [facility] | [address] | [place] [address] | [phone] | + + + + + CBC [...] | | | Absolute | performed at [facility];[address] | [address] | LABORATORY | | | | [address];[place], [place] | | | | | | [address] | | | | + + + + + + + + | Specimen | + + | Blood | + + + + + + + | Performing | Address | City/State/Zipcode | Phone Number | | Organization | | | | + + + + + | [facility] | [address] | [place] [address] | [phone] | + + + + + POC [...] | | | POC | performed at [facility];[address] | | LABORATORY | | | | [address];[place], [place] | | | | | | [address] | | | | + + + + + + + + | Specimen | + + | | + + + + + + + | Performing | Address | City/State/Zipcode | Phone Number | | Organization | | | | + + + + + | [facility] | [address] | [place] [address] | [phone] | + + + + + POC Glucose (08/28/2019 12:11 PM PST) + + + + + + | Component | Value | Ref Range | Performed | Pathologist | | | | | At | Signature | + + + + + + | Glucose, | 101 (H)Comment: Testing | 65 - 99 mg/dL | [facility] | | | POC | performed at [facility];[address] | | LABORATORY | | | | [address];[place] | | | | | | [address] | | | | + + + + + + + + | Specimen | + + | | + + + + + + + | Performing | Address | City/State/Zipcode | Phone Number | | Organization | | | | + + + + + | [facility] | [address] | [place] [address] | [phone] | + + + + + POC Glucose (08/28/2019 8:48 AM PST) + + + + + + | Component | Value | Ref Range | Performed | Pathologist | | | | | At | Signature | + + + + + + | Glucose, | 98Comment: Testing | 65 - 99 mg/dL | [facility] | | | POC | performed at [facility];[address] | | LABORATORY | | | | [address];[place] | | | | | | [address] | | | | + + + + + + + + | Specimen | + + | | + + + + + + + | Performing | Address | City/State/Zipcode | Phone Number | | Organization | | | | + + + + + | [facility] | [address] | [place] [address] | [phone] | + + + + + Phosphorus (08/28/2019 4:18 AM PST) + + + + + + | Component | Value | Ref Range | Performed | Pathologist | | | | | At | Signature | + + + + + + | Phosphorus | 2.1 (L)Comment: Testing | 2.3 - 4.8 mg/dL | [facility] | | | | performed at [facility], [address] | | LABORATORY | | | | [address], | | | | | | [place] [address] | | | | + + + + + + + + | Specimen | + + | Blood | + + + + + + + | Performing | Address | City/State/Zipcode | Phone Number | | Organization | | | | + + + + + | [facility] | [address] | [place] [address] | [phone] | + + + + + Magnesium [...] | | | | | [place] [address] | | | | + + + + + + + + | Specimen | + + | Blood | + + + + + + + | Performing | Address | City/State/Zipcode | Phone Number | | Organization | | | | + + + + + | [facility] | [address] | [place] [address] | [phone] | + + + + + Basic [...] | | | | | performed at [facility], [address] | | | | | | [facility], | | | | | | [place] [address] | | | | + + + + + + + + | Specimen | + + | Blood | + + + + + + + | Performing | Address | City/State/Zipcode | Phone Number | | Organization | | | | + + + + + | [facility] | [address] | [place] [address] | [phone] | + + + + + CBC [...] | | | | | [place] [address] | | | | + + + + + + + + | Specimen | + + | Blood | + + + + + + + | Performing | Address | City/State/Zipcode | Phone Number | | Organization | | | | + + + + + | [facility] | [address] | [place] [address] | [phone] | + + + + + POC Glucose (08/27/2019 8:35 PM PST) + + + + + + | Component | Value | Ref Range | Performed | Pathologist | | | | | At | Signature | + + + + + + | Glucose, | 129 (H)Comment: Testing | 65 - 99 mg/dL | [facility] | | | POC | performed at [facility];[address] | | LABORATORY | | | | [address];[place] | | | | | | [address] | | | | + + + + + + + + | Specimen | + + | | + + + + + + + | Performing | Address | City/State/Zipcode | Phone Number | | Organization | | | | + + + + + | [facility] | [address] | [place] [address] | [phone] | + + + + + POC Glucose (08/27/2019 12:05 PM PST) + + + + + + | Component | Value | Ref Range | Performed | Pathologist | | | | | At | Signature | + + + + + + | Glucose, | 99Comment: Testing | 65 - 99 mg/dL | [facility] | | | POC | performed at [facility];[address] | | LABORATORY | | | | [address];[place], [place] | | | | | | [address] | | | | + + + + + + + + | Specimen | + + | | + + + + + + + | Performing | Address | City/State/Zipcode | Phone Number | | Organization | | | | + + + + + | [facility] | [address] | [place] [address] | [phone] | + + + + + POC Glucose (08/27/2019 8:01 AM PST) + + + + + + | Component | Value | Ref Range | Performed | Pathologist | | | | | At | Signature | + + + + + + | Glucose, | 85Comment: Testing | 65 - 99 mg/dL | [facility] | | | POC | performed at [facility];[address] | | LABORATORY | | | | [address];[place] | | | | | | [address] | | | | + + + + + + + + | Specimen | + + | | + + + + + + + | Performing | Address | City/State/Zipcode | Phone Number | | Organization | | | | + + + + + | [facility] | [address] | [place] [address] | [phone] | + + + + + Phosphorus (08/27/2019 5:10 AM PST) + + + + + + | Component | Value | Ref Range | Performed | Pathologist | | | | | At | Signature | + + + + + + | Phosphorus | 3.8Comment: Testing | 2.3 - 4.8 mg/dL | [facility] | | | | performed at [facility], [address] | | LABORATORY | | | | [address], | | | | | | [place] [address] | | | | + + + + + + + + | Specimen | + + | Blood | + + + + + + + | Performing | Address | City/State/Zipcode | Phone Number | | Organization | | | | + + + + + | [facility] | [address] | [place] [address] | [phone] | + + + + + Magnesium (08/27/2019 5:10 AM PST) + + + + + + | Component | Value | Ref Range | Performed | Pathologist | | | | | At | Signature | + + + + + + | Magnesium | 2.2Comment: Testing | 1.7 - 2.4 mg/dL | [facility] | | | | performed at [facility], [address] | | LABORATORY | | | | [address], | | | | | | [place] [address] | | | | + + + + + + + + | Specimen | + + | Blood | + + + + + + + | Performing | Address | City/State/Zipcode | Phone Number | | Organization | | | | + + + + + | [facility] | [address] | [place] [address] | [phone] | + + + + + Basic [...] | >60Comment: GFR <60: | >60 | [facility] | | | GFR | [...] | | | | | | MDRD IDDC traceable | | | | | | equation.Testing | | | | | | performed at [facility], [address] | | | | | | [facility], | | | | | | [place] [address] | | | | + + + + + + + + | Specimen | + + | Blood | + + + + + + + | Performing | Address | City/State/Zipcode | Phone Number | | Organization | | | | + + + + + | [facility] | [address] | [place] [address] | [phone] | + + + + + CBC [...] at | | | | | | [facility], [address] [facility] | | | | | | [place] | | | | | | [address] | | | | + + + + + + + + | Specimen | + + | Blood | + + + + + + + | Performing | Address | City/State/Zipcode | Phone Number | | Organization | | | | + + + + + | [facility] | [address] | [place] [address] | [phone] | + + + + + POC Glucose (08/27/2019 4:06 AM PST) + + + + + + | Component | Value | Ref Range | Performed | Pathologist | | | | | At | Signature | + + + + + + | Glucose, | 81Comment: Testing | 65 - 99 mg/dL | [facility] | | | POC | performed at [facility];[address] | | LABORATORY | | | | [address];[place], [place] | | | | | | [address] | | | | + + + + + + + + | Specimen | + + | | + + + + + + + | Performing | Address | City/State/Zipcode | Phone Number | | Organization | | | | + + + + + | [facility] | [address] | [place] [address] | [phone] | + + + + + POC Glucose (08/26/2019 9:14 PM PST) + + + + + + | Component | Value | Ref Range | Performed | Pathologist | | | | | At | Signature | + + + + + + | Glucose, | 101 (H)Comment: Testing | 65 - 99 mg/dL | [facility] | | | POC | performed at [facility];[address] | | LABORATORY | | | | [address];[place], [place] | | | | | | [address] | | | | + + + + + + + + | Specimen | + + | | + + + + + + + | Performing | Address | City/State/Zipcode | Phone Number | | Organization | | | | + + + + + | [facility] | [address] | [place] [address] | [phone] | + + + + + Surgical [...] of the | | | rectum (see [id number]). As part of [employer] Quality | | | Improvement Program, this [...] surfaceis barker-yellow and lobulated. | | | Accounts Payable Processor sections are submitted in cassette (A1). B. [...] is barker-yellow and | | | lobulated. Accounts Payable Processor sections are submitted incassette (B1). | | [...] component was performed | | | by [employer] [address] [place] [address] (Medical | | | Director: Yenny Young MD; CLIA# [id number]). Professional | | | interpretation was performed by[employer] [facility] | | | [address] [address] (Medical | | | Director: Kenyon Delacruz M.D.; CLIA#: [id number]). REASON FOR | | | ADDENDUM:Results of [...] | | | preparation) was performed at [facility]. | | | Interpretation was performed at [facility]. | | | Immunohistochemical studies and/or special stains were performed on | | | this case with the appropriate controls, which stain appropriately. | | | These tests were developed and their performance characteristics | | | determined by [facility] and/or [facility]. These tests | | | may have not been cleared or approved by the U.S. Food and Drug | | | Administration. The FDA has determined that suchclearance or | | | approval is not necessary. [facility] and [facility] are certified | | | under the [...] designed to | | | detect V600E (C1542S). Some non-V600E mutations, V600K, V600D, and | [...] | analysis test have been determined by [employer] [address] | | [address] [place], [place],but have not been cleared or approved [...] | | analysis tests were performed at [employer] [address] | | | [place] [address] (Male Model: Gaudencio Lira MD; CLIA# | | | [id number]). REASON FOR ADDENDUM:This case is addended for the | | | addition of BRAF and KRAS Mutation Analysis results. ADDENDUM | | | PATHOLOGIC DIAGNOSIS:[id number], [id number] BIOPSY: Mutation DETECTED | | | - [...] colorectal cancer. J Clin Oncol 2008; 26(35): 3874-8095. doi: | | | 10.1200/JCO.2008.18.87826. Arnel IG, Alexis M, Boateng M, et al. | | | Wild-type KRAS is required for panitunumab efficacy in patients with | | | metastatic colorectal cancer. J Clin Oncol 2008; 26:3425-3276. | | | doi:10.1200/JCO.2007.14.03272. Gilda PATTON, Cheli MENDOZA, Ean A, et | | | al. Extended TAO mutations and anti-EGFR monoclonal antibody survival | | | benefit in metastatic colorectal cancer: a meta-analysis of | | | randomized, controlled trials.Annals of Oncol 2014; 26(1): 13-21. doi: | | | 10.1093/annon/ehq738 4. Navi HERMOSILLO, Melissa RODRIGUEZ. KRAS | | | Mutation: Should We Test for It, and Does It Matter? J Clin Oncol | | | 2013; 31:4546-7525. doi: 10.1200/JCO.2012.43.0454 ADDENDUM CLINICAL | | | [...] | | paraffin tissue block B1, numbered [id number], belonging to patient | | | ARLENE ROJAS. Diagnostician: Nicanor Elias | | | DOPathologistDiagnostician: Kenyon Delacruz | | | MDPathologistDiagnostician: Prieto Brito MT([facility] [place] | | | MBPathologistDiagnostician: Demi Bearden MD [...] | | LABORATORY | | | | Blvd;[place] [address] | | | | + + + + + + + + | Specimen | + + | Blood | + + + + + + + | Performing | Address | City/State/Zipcode | Phone Number | | Organization | | | | + + + + + | [facility] | [address] | [place] [address] | [phone] | + + + + + Enriqueta [...] | | | | | performed at [facility] | | | | | | [address];[place], [place] | | | | | | [address] | | | | + + + + + + + + | Specimen | + + | Blood | + + + + + + + | Performing | Address | City/State/Zipcode | Phone Number | | Organization | | | | + + + + + | [facility] | [address] | [place] [address] | [phone] | + + + + + Ferritin (08/26/2019 4:25 AM PST) + + + + + + | Component | Value | Ref Range | Performed | Pathologist | | | | | At | Signature | + + + + + + | Ferritin | 144Comment: Testing | 11 - 450 ng/mL | [facility] | | | | performed at [facility], [address] | | LABORATORY | | | | [address], | | | | | | [place] [address] | | | | + + + + + + + + | Specimen | + + | Blood | + + + + + + + | Performing | Address | City/State/Zipcode | Phone Number | | Organization | | | | + + + + + | [facility] | [address] | [place] [address] | [phone] | + + + + + Iron [...] | | | | | [place] [address] | | | | + + + + + + + + | Specimen | + + | Blood | + + + + + + + | Performing | Address | City/State/Zipcode | Phone Number | | Organization | | | | + + + + + | [facility] | [address] | [place] [address] | [phone] | + + + + + CBC [...] [address], | | | | | | [place] [address] | | | | + + + + + + + + | Specimen | + + | Blood | + + + + + + + | Performing | Address | City/State/Zipcode | Phone Number | | Organization | | | | + + + + + | [facility] | [address] | [place] [address] | [phone] | + + + + + Basic [...] | >60Comment: GFR <60: | >60 | [facility] | | | GFR | [...] | | | | | performed at [facility], [address] | | | | | | [facility], | | | | | | [place] [address] | | | | + + + + + + + + | Specimen | + + | Blood | + + + + + + + | Performing | Address | City/State/Zipcode | Phone Number | | Organization | | | | + + + + + | [facility] | [address] | [place] [address] | [phone] | + + + + + Urinalysis [...] - 1.030 | [facility] | | | [place], | | | LABORATORY | | | [...] | | LABORATORY | | | | [facility];[address] [place] [address] | | | | | | Blvd;[place] [address] | | | | + + + [...] | + + + + + | [facility] | [address] | [place] [address] | [phone] | + + + + + Comprehensive [...] | >60Comment: GFR <60: | >60 | [facility] | | | GFR | [...] | | | | | performed at [facility];[address] | | | | | | [facility];[place], [place] | | | | | | [address] | | | | + + + + + + + + | Specimen | + + | Blood | + + + + + + + | Performing | Address | City/State/Zipcode | Phone Number | | Organization | | | | + + + + + | [facility] | [address] | [place] [address] | [phone] | + + + + + CBC [...] | | | Absolute | performed at [facility];[address] | [address]/uL | LABORATORY | | | | [address];[place] | | | | | | [address] | | | | + + + + + + + + | Specimen | + + | Blood | + + + + + + + | Performing | Address | City/State/Zipcode | Phone Number | | Organization | | | | + + + + + | [facility] | [address] | [place] [address] | [phone] | + + + + + documented [...] | | | | | | longer, ovouyn-[id number]-[id number] use of | | | | | [...]
--- OUTSIDE RECORDS SUMMARY | ~2019-10-12 | XMS | Encounter Summary ---
Demographics + + + | Address | [address] | | | [place] [address] | + + + | Home Phone [...] Team Providers + +------+ + | Care Steel Fabricator Name | Role | Phone | + [...] Trung AYALA | | | | | [phone] | [place] [address] | | +--------+ + + + + [...] [address] | | | | | | [place] [address] | | | | | | [phone] | | | | | | | [...]
--- OUTSIDE RECORDS SUMMARY | ~2019-10-12 | XMS | Encounter Summary ---
Demographics + + + | Address | [address] | | | [place] [address] | + + + | Home Phone [...] Team Providers + +------+ + | Care Roofing Plant Supervisor Name | Role | Phone | [...] Trung AYALA | | | | | [phone] | [place] [address] | | +--------+ + + + + [...] [address] | | | | | | [place] [address] | | | | | | [phone] | | | | | | | [...]
--- OUTSIDE RECORDS SUMMARY | ~2019-10-12 | XMS | Encounter Summary ---
Demographics + + + | Address | [address] | | | [place] [address] | + + + | Home Phone | | + + + | Preferred Language | Unknown | + + + | Marital Status | | + + + | Rastafari Affiliation | Unknown | + + + | Race | Unknown | + + + | Ethnic Group | Unknown | + + + Author + + + | Author | [facility] | | | and [place] | + + + | Organization | [facility] | | | [...] Team Providers + +------+ + | Care Rotary Cutter Name | Role | Phone | [...] Trung AYALA | | | | | [phone] | [place] [address] | | +--------+ + + + + [...] [address] | | | | | | [place] [address] | | | | | | [phone] | | | | | | | [...]
--- OUTSIDE RECORDS SUMMARY | ~2019-10-12 | XMS | Encounter Summary ---
Demographics + + + | Address | [address] | | | [place] [address] | + + + | Home Phone | | + + + | Preferred Language | Unknown | + + + | Marital Status | | + + + | Mandaeism Affiliation | Unknown | + + + | Race | Unknown | + + + | Ethnic Group | Unknown | + + + Author + + + | Author | [facility] | | | and [place] | + + + | Organization | [facility] | | | [...] Team Providers + +------+ + | Care Catering Barista Name | Role | Phone | + [...] | | Required | | Adenocarcino | PACU RN [address] | [address] | | | | | ma of | [address] | [place], | | | | | rectosigmoid | [address] | [place] [address] | | | | | junction | [place], [place] | Phone: | | | | | ([facility]) | [address] | [phone] | | | | | | Phone: | Fax: | | | | | | [phone] | [phone] | | | | | | Fax: | | | | | | | [phone] | | + + + + + [...] | | | Surgery / | | [address] | | | | General | | Charlee Santamaria | [address] | | | | Surgery | | Vish, | [place], [place] | | | | | | [place] | [address] | | | | | | [address] | Phone: | | | | | | Phone: | [phone] | | | | | | [phone] | Fax: | | | | | | Fax: | [phone] | | | | | | [phone] | | + +--------+ + + + + Encounter Details +--------+---------+ + + + | Date | Type | Department | Care Team | Description | +--------+---------+ + + + | 09/20/ | Office | [facility] | Arabellacegabby, | 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
--- OUTSIDE RECORDS SUMMARY | ~2019-10-12 | XMS | Encounter Summary ---
Demographics + + + | Address | [address] | | | [place] [address] | + + + | Home Phone [...] Team Providers + +------+ + | Care Drafting Layout Worker Name | Role | Phone | + +------+ + | Lizette Martinez | PCP | | + +------+ + Encounter Details +--------+ + + + + | Date | Type | Department | Care Team | Description | +--------+ + + + + | 08/26/ | Hospital | [facility] | Phong Tyson, | | | 2018 | Encounter | [facility]OC | [address] | | | | | [address] | [address] | | | | | [address] | [place] [address] | | | | | [place], [place] | [phone] | | | | | [address] | | | | | | [phone] | | | +--------+ + + + [...] 780 | | | | | | [facility] [address] | | | | | | [place] [address] | | | | | | [phone] | | | | | | | [...]
--- OUTSIDE RECORDS SUMMARY | ~2019-10-12 | XMS | Clinical Summary ---
Demographics + + + | Address | [address] | | | [place] [address] | + + + | Home Phone | | + + + | Preferred Language | Unknown | + + + | Marital Status | Unknown | + + + | Restorationist Affiliation | Unknown | + + + | Race | Unknown | + + + | Ethnic Group | Unknown | + + + Author + + + | Author | [facility] (Historical as of | | | 05-20-19) | + + + | Organization | [facility] (Historical as of | | | 05-20-19) [...] Team Providers + +------+ + | Care Wet Process Operator Name | Role | Phone | [...] | | + +--------+ +------+-------+ + | /[facility] | YELLOW | [id number] | | | | | PLANS | [place] | | | | | + +--------+ +------+-------+ + | MEDICARE | MEDICA | [id number] | | | [address] | | | RE | | | | [place] [address] | | | IP-OP | | | [...] | Self [birth year] Home: | [address] | | | al/Fam | | 1941 | [phone] [place] [address] | | | [place] | | | [phone] | | + +--------+ +--------+ + +
--- OUTSIDE RECORDS SUMMARY | ~2019-10-12 | XMS | Encounter Summary ---
Demographics + + + | Address | [address] | | | [place] [address] | + + + | Home Phone [...] Team Providers + +------+ + | Care Social Media Marketer Name | Role | Phone | + [...] Trung AYALA | | | | | [phone] | [place] [address] | | +--------+ + + + + [...] [address] | | | | | | [place] [address] | | | | | | [phone] | | | | | | | [...]
--- OUTSIDE RECORDS SUMMARY | ~2019-10-12 | XMS | Encounter Summary ---
Demographics + + + | Address | [address] | | | [place] [address] | + + + | Home Phone [...] Team Providers + +------+ + | Care Sand Mixer Machine Name | Role | Phone | + [...] | Required | Oncology | Adenocarcino | PHOTOGRAPHY SPOTTER [address] | Paras Leach MD | | | | | ma of | [address] | [address] | | | | | rectosigmoid | [address] | [facility] | | | | | junction | [place] | [place] | | | | | (HCC) | [address] | [address] Phone: | | | | | | Phone: | [phone] | | | | | | [phone] | Fax: | | | | | | Fax: | [phone] | | | | | | [phone] | | + + + + + + + Encounter Details +--------+ + + + + | Date | Type | Department | Care Team | Description | +--------+ + + + + | 09/05/ | Orders Only | [facility] | Alva See | 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
--- OUTSIDE RECORDS SUMMARY | ~2019-10-12 | XMS | Encounter Summary ---
Demographics + + + | Address | [address] | | | [place] [address] | + + + | Home Phone [...] Team Providers + +------+ + | Care Door Puller Name | Role | Phone | [...] [place] | | | | | | [address] | | | | | | [phone] | | | +--------+ + + + [...] | | | | | [place] [address] | | | | | | [phone] | | | | | | | [...] 0.67 m/s MV | | | Dec Luqu[place]: 1.81 m/s2 MV DecT: 317.65 ms MV E Emanuel: 0.57 m/s | | | MV E/A Ratio: 0.85 E/E' Sept: 11.69 E' Lat: 0.08 m/s E' | | | Sept: 0.04 m/s RAP: 5 mmHg RV S': 0.12 m/s RVSP: 25.91 | | | mmHg TR maxP.91 mmHg TR Vmax: 2.28 m/s Genetics Physician: | | | Authenticated by: Cici Abraham [...] mlLAESV Index (A-L): 24.25 ml/m2LAAs A2C: 14.49 [id number] A-L A2C: 33.91 | | mlLAESV MOD A2C: 32.12 mlLALs A2C: 5.25 cmLAAs A4C: 19.79 [id number] A-L A4C: | | 58.12 mlLAESV MOD A4C: 57.48 mlLALs A4C: 5.72 cmRAAs: 18.17 [id number] A-L: 49.96 | | mlRAESV MOD: 49.15 mlRALs: 5.60 cmTAPSE: 2.19 cmAV Env.Ti: 293.90 msAV maxPG: | | 4.91 mmHgAV meanP.41 mmHgAV Vmax: 1.10 m/Milton Vmean: 0.72 m/Milton VTI: 21.23 | | cmAVA Vmax: 3.17 cm2AVA (VTI): 3.89 mk2ILNC Vmax: 0.00 cm2/m2AVAI (VTI): 0.00 | | cm2/m2LVOT Env.Ti: 360.44 msLVOT maxP.14 mmHgLVOT meanP.50 mmHgLVSI Dopp: | | 43.29 ml/m2LVSV Dopp: 82.69 mlLVOT Vmax: 0.88 m/sLVOT Vmean: 0.57 m/sLVOT VTI: | | 20.85 cmMV A Emanuel: 0.67 m/sMV Dec Luqu[place]: 1.81 m/s2MV DecT: 317.65 msMV E Emanuel: | | 0.57 m/sMV E/A Ratio: 0.85E/E' Sept: 11.69E' Lat: 0.08 m/sE' Sept: 0.04 m/sRAP: | | 5 mmHgRV S': 0.12 m/sRVSP: 25.91 mmHgTR maxP.91 mmHgTR Vmax: 2.28 m/s | | Genetics Physician:Authenticated by: Cici Robles Date/Time: 02-21-2019 19:5:14 | [...] A Emanuel: 0.67 m/s | |MV Dec [place]qu[place]: 1.81 m/s2 | |MV DecT: 317.65 ms | |MV E Emanuel: 0.57 m/s | |MV E/A Ratio: 0.85 | |E/E' Sept: 11.69 | |E' Lat: 0.08 m/s | |E' Sept: 0.04 m/s | |RAP: 5 mmHg | |RV S': 0.12 m/s | |RVSP: 25.91 mmHg | |TR maxP.91 mmHg | |TR Vmax: 2.28 m/s | | | |Genetics Physician: | |Authenticated by: Cici Abraham | |Report [...]
--- OUTSIDE RECORDS SUMMARY | ~2019-10-12 | XMS | Encounter Summary ---
Demographics + + + | Address | [address] | | | [place] [address] | + + + | Home Phone [...] Team Providers + +------+ + | Care Landscape Account Manager Name | Role | Phone | [...] | Required | Oncology | Adenocarcino | AUTOMATIC LATHE SETTER [address] | Paras Leach MD | | | | | ma of | [address] | [address] | | | | | rectosigmoid | [address] | [facility] | | | | | junction | [place] | [place] | | | | | (HCC) | [address] Phone: | | | | | | Phone: | [phone] | | | | | | [phone] | Fax: | | | | | | Fax: | [phone] | | | | | | [phone] | | + + + + + + + Encounter Details +--------+ + + + + | Date | Type | Department | Care Team | Description | +--------+ + + + + | 09/05/ | Orders Only | [facility] | Alva See | 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
--- OUTSIDE RECORDS SUMMARY | ~2019-10-12 | XMS | Encounter Summary ---
Demographics + + + | Address | [address] | | | [place] [address] | + + + | Home Phone [...] Team Providers + +------+ + | Care Correctional Lieutenant Name | Role | Phone | + [...] [place] | | | | | | [address] | (Fax) | | | | | [phone] | | | +--------+ + + + [...] [address] | | | | | | [place] [address] | | | | | | [phone] | | | | | | | | +--------+---------+ + + + documented as of this encounter Visit Diagnoses Not on filedocumented in this encounter"
--- OUTSIDE RECORDS SUMMARY | ~2019-10-12 | XMS | Encounter Summary ---
Demographics + + + | Address | [address] | | | [place] [address] | + + + | Home Phone | | + + + | Preferred Language | Unknown | + + + | Marital Status | | + + + | Adventist Affiliation | Unknown | + + + | Race | Unknown | + + + | Ethnic Group | Unknown | + + + Author + + + | Author | [facility] | | | and [place] | + + + | Organization | [facility] | | | [...] Providers + +------+ + | Care Metal Machinist Name | Role | Phone | + [...] + + | 08/26/ | Anesthesia | [facility] | Judson Mcmullen | | | 2019 | Event [facility] | [address] | | | | | [address]PER[address] RO[address] | [address] | | | | | [address] | [place] [address] | | | | | [place], [place] | [phone] | | | | | [address] | | | | | | [phone] | | | +--------+ + + + [...] [address] | | | | | | [place] [address] | | | | | | [phone] | | | | | | | [...]
--- OUTSIDE RECORDS SUMMARY | ~2019-10-12 | XMS | Encounter Summary ---
Demographics + + + | Address | [address] | | | [place] [address] | + + + | Home Phone [...] Team Providers + +------+ + | Care Tip Cutter Name | Role | Phone | + +------+ + | Lizette Martinez | PCP | | + +------+ + Encounter Details +--------+ + + + + | Date | Type | Department | Care Team | Description | +--------+ + + + + | 09/05/ | Documentati | [facility] | Evelyne Gonzalez, | | | 2019 | on | GENERAL SURGERY [address] | Metals Sales Representative | | | | | [address] | | | | | | [place] | | | | | | [address] | | | | | | [phone] | | | +--------+ + + + [...] of this encounter Progress Notes Evelyne Gonzalez Metals Sales Representative - 09/05/2019 10:45 AM PSTPertinent medical records [...] 101 | | | | | | [place] [address] | | | | | | [phone] | | | | | | | | +--------+---------+ + + + documented as of this encounter Visit Diagnoses Not on filedocumented in this encounter"
--- OUTSIDE RECORDS SUMMARY | ~2019-10-12 | XMS | Encounter Summary ---
Demographics + + + | Address | [address] | | | [place] [address] | + + + | Home Phone [...] Team Providers + +------+ + | Care Poultry Slaughterer Name | Role | Phone | + +------+ + | Lizette Martinez | PCP | | + +------+ + Encounter Details +--------+ + + + + | Date | Type | Department | Care Team | Description | +--------+ + + + + | 08/26/ | Hospital | [facility] | Phong Tyson, | | | 2018 | Encounter | MEDICAL CENTER POC | [address] | | | | | [address] | [address] | | | | | [address] | [place] [address] | | | | | [place], [place] | [phone] | | | | | [address] | | | | | | [phone] | | | +--------+ + + + [...] 780 | | | | | | [facility] 101 | | | | | | [place] [address] | | | | | | [phone] | | | | | | | [...]
--- OUTSIDE RECORDS SUMMARY | ~2019-10-12 | XMS | Encounter Summary ---
Demographics + + + | Address | [address] | | | [place] [address] | + + + | Home Phone | | + + + | Preferred Language | Unknown | + + + | Marital Status | | + + + | Mormonism Affiliation | Unknown | + + + | Race | Unknown | + + + | Ethnic Group | Unknown | + + + Author + + + | Author | [facility] | | | and [place] | + + + | Organization | [facility] | | | and [...] Team Providers + +------+ + | Care Hopper Operator Name | Role | Phone | [...] + + | 09/05/ | Navigation | [facility] | Alva See | | | 2019 | Services | HEMATOLOGY AND | JAIME Persaud | | | | | ONCOLOGY [address] | | | | | | [address] | | | | | | [place] | | | | | | [address] | | | | | | [phone] | | | +--------+ + + + [...] Alva Cross, RN - 09/05/2019 10:11 AM [facility] has been asked by Cristian Adam to refer pt to local oncologist near his home in [place], [place]. Referral entered for Dr Paras crowell, but referral must come from pcp due to insurance requirement. I placed call to pc p's office (Lizette Martinez) and left voicemail for patient rn long term care, Nanda self need for urgent referral [...] | | | | | | [facility] [address] | | | | | | [place] [address] | | | | | | [phone] | | | | | | | | +--------+---------+ + + + documented as of this encounter Visit Diagnoses Not on filedocumented in this encounter"
--- OUTSIDE RECORDS SUMMARY | ~2019-10-12 | XMS | Clinical Summary ---
Demographics + + + | Address | [address] | | | [place] [address] | + + + | Home Phone [...] Team Providers + +------+ + | Care Contract Processor Name | Role | Phone | + [...] right | | lung.1. Presentation to the [facility] Emergency Room | | on August 23, 2019 with a 10 week history of abdominal | | distension and pain, and bloody diarrhea.2. CT scan | | abdomen/pelvis on August 23, 2019 at [facility] | | demonstrated significant nodularity in the omentum and mesentery, | | thickened rectosigmoid with diminished lumen. No liver | | metastases, nodule at left lung base. 3. Limited colonoscopy and | | rigid proctoscopy (Tahir) on August 24, 2019 demonstrated a | | circumferential palpable mass palpable within the rectum, | | estimated to be 10 cm long by proctoscopy. Specimen # [id number] | | (Leiva, MiniTime); Pooly differentiated | | adenocarcinoma, with signet [...] on September 03, 2019 ([facility], | | [place]); innumerable mesenteric and omental soft tissue | | nodules, largest 3 x 5.5 cm, right basilar pleural effusion and | | bilateral pleural nodularity suspicious for metastatic disease. | | Last Assessment & Plan: Arlene Rojas is referred by Sree | | Yifan Adam [address] [place] [address] for | | evaluation and management of confirmed regionally metastatic | | colon cancer to the omentum, with unconfirmed metastatic disease | | to the right lung.I met with Crystal and his daughter, Gissel, at | | the [facility] on | | 09/14/2019.Review of systems is notable for rectal pain.Clinical | | exam is notable for decreased breath sounds and dullness at the | | right base.Laboratory exam is notable for elevated CEA.Images | | from his [facility] evaluations were | | reviewed.Assessment: confirmed regionally metastatic colon cancer | | to the omentum, with unconfirmed metastatic disease to the right | | lung.Plan; This was an extended, high-value encounter were we | | reviewed Mr. Rojas's hroezy-wj-srratnj, his goals of therapy and | | [...] | | proceed with treatment directly at [facility] in | | [place], [place]. He will be referred to Dr. Emeterio [...] automatically from request for surgery | | [id number] | + + + + + | Rectal obstruction | 08/25/2019 | + + + + + | Overview: Added automatically from request for surgery | | [id number] | + + + + + | [...] | | | 2018 | | | GLOBAL LOGISTICS ANALYST | | +--------+ + + + + [...] | | 2018 | on | | Die Lay Out Worker | | +--------+ + + + + [...] [address] | | | | | | [place] [address] | | | | | | [phone] | | | | | | | [...] J?MRN: | | | | | | [id number] | | | [id number] | | | riteri | | | [...] | | | St. | | | [place] | | | y | | | [...] | | | St. | | | [place] | | | y H. | | [...] | | | St. | | | [place] | | | y H. | | [...] | | | 1-103a | | | [id number] | | | 41 | | | [...] | | | Absolute | performed at [facility], [address] | [address] | LABORATORY | | | | [address], | | | | | | [place] [address] | | | | + + + + + + + + | Specimen | + + | Blood | + + + + + + + | Performing | Address | City/State/Zipcode | Phone Number | | Organization | | | | + + + + + | [facility] | [address] | [place] [address] | [phone] | + + + + + Comprehensive [...] | | | | | performed at [facility], [address] | | | | | | [facility], | | | | | | [place] [address] | | | | + + + + + + + + | Specimen | + + | Blood | + + + + + + + | Performing | Address | City/State/Zipcode | Phone Number | | Organization | | | | + + + + + | [facility] | [address] | [place] [address] | [phone] | + + + + + Phosphorus [...] Testing | 2.3 - 4.8 mg/dL | [facility] | | | | performed at [facility];[address] | | LABORATORY | | | | [address];[place], [place] | | | | | | [address] | | | | + + + + + + + + | Specimen | + + | Blood | + + + + + + + | Performing | Address | City/State/Zipcode | Phone Number | | Organization | | | | + + + + + | [facility] | [address] | [place] [address] | [phone] | + + + + + Magnesium [...] Testing | 1.7 - 2.4 mg/dL | [facility] | | | | performed at [facility];[address] | | LABORATORY | | | | [address];[place], [place] | | | | | | [address] | | | | + + + + + + + + | Specimen | + + | Blood | + + + + + + + | Performing | Address | City/State/Zipcode | Phone Number | | Organization | | | | + + + + + | [facility] | [address] | [place] [address] | [phone] | + + + + + Basic [...] | >60Comment: GFR <60: | >60 | [facility] | | | GFR | CHRONIC KIDNEY [...] | | | | | | MDRD [facility] traceable | | | | | | equation.Testing | | | | | | performed at [facility];[address] | | | | | | [facility];[place], [place] | | | | | | [address] | | | | + + + + + + + + | Specimen | + + | Blood | + + + + + + + | Performing | Address | City/State/Zipcode | Phone Number | | Organization | | | | + + + + + | [facility] | [address] | [place] [address] | [phone] | + + + + + POC [...] Testing | 65 - 99 mg/dL | [facility] | | | POC | performed at [facility];[address] | | LABORATORY | | | | [address];[place] | | | | | | [address] | | | | + + + + + + + + | Specimen | + + | | + + + + + + + | Performing | Address | City/State/Zipcode | Phone Number | | Organization | | | | + + + + + | [facility] | [address] | [place] [address] | [phone] | + + + + + Surgical [...] of the | | | rectum (see [id number]). As part of [employer]' Quality | | | Improvement Program, this [...] surfaceis barker-yellow and lobulated. | | | Opto Mechanical Technician sections are submitted in cassette (A1). [...] is barker-yellow and | | | lobulated. Opto Mechanical Technician sections are submitted incassette (B1). | [...] component was performed | | | by [employer], [address] [place] [address] (Medical | | | Director: Yenny Young MD; CLIA# [id number]). Professional | | | interpretation was performed by[employer] [facility] | | | [facility], [address] [place] [id number] (Medical | | | Director: Kenyon Delacruz M.D.; [facility]#: [id number]). REASON FOR | | | ADDENDUM:Results of [...] | | | preparation) was performed at [facility]. | | | Interpretation was performed at [facility]. | | | Immunohistochemical studies and/or special stains were performed on | | | this case with the appropriate controls, which stain appropriately. | | | These tests were developed and their performance characteristics | | | determined by [facility] and/or [facility]. These tests | | | may have not been cleared or approved by the U.S. Food and Drug | | | Administration. The FDA has determined that suchclearance or | | | approval is not necessary. [facility] and [facility] are certified | | | under the [...] designed to | | | detect V600E ([id number]). Some non-V600E mutations, V600K, V600D, and | [...] | analysis test have been determined by [facility], [address] | | [address] [place], [place],but have not been cleared or approved [...] | | analysis tests were performed at [employer], [address] | | | [place] [address] (Postbed Stitcher: Gaudencio Lira MD; CLIA# | | | [id number]). REASON FOR ADDENDUM:This case is addended for the | | | addition of BRAF and KRAS Mutation Analysis results. ADDENDUM | | | PATHOLOGIC DIAGNOSIS:[id number], [id number] BIOPSY: Mutation DETECTED | | | - [...] colorectal cancer. J Clin Oncol 2008; 26(35): 4975-2399. doi: | | | 10.1200/JCO.2008.18.98442. Arnel IG, Alexis M, Boateng M, et al. | | | Wild-type KRAS is required for panitunumab efficacy in patients with | | | metastatic colorectal cancer. J Clin Oncol 2008; 26:8874-5889. | | | doi:10.1200/JCO.2007.14.85544. Gilda PATTON, Cheli MENDOZA, Ean A, et | | | al. Extended TAO mutations and anti-EGFR monoclonal antibody survival | | | benefit in metastatic colorectal cancer: a meta-analysis of | | | randomized, controlled trials.Annals of Oncol 2014; 26(1): 13-21. doi: | | | 10.1093/annonc/wic441 4. Navi HERMOSILLO, Melissa RODRIGUEZ. KRAS | | | Mutation: Should We Test for It, and Does It Matter? J Clin Oncol | | | 2013; 31:3055-4716. doi: 10.1200/JCO.2012.43.0454 ADDENDUM CLINICAL | | | [...] | | paraffin tissue block B1, numbered [id number], belonging to patient | | | ARLENE ROJAS. Diagnostician: Nicanor Elias | | | DOPathologistDiagnostician: Kenyon Delacruz | | | MDPathologistDiagnostician: Prieto Brito MT([facility]) | | | MBPathologistDiagnostician: Demi [...] | | | | | | FABI IYV MD ([address]) | | | | | [...] LABORATORY | | | | Blvd;[place] [address] | | | | + + + + + + + + | Specimen | + + | Blood | + + + + + + + | Performing | Address | City/State/Zipcode | Phone Number | | Organization | | | | + + + + + | [facility] | [address] | [place] [address] | [phone] | + + + + + Iron [...] [address], | | | | | | [place] [address] | | | | + + + + + + + + | Specimen | + + | Blood | + + + + + + + | Performing | Address | City/State/Zipcode | Phone Number | | Organization | | | | + + + + + | [facility] | [address] | [place] [address] | [phone] | + + + + + Protime INR (08/26/2019 4:25 AM PST) + + + + + + | Component | Value | Ref Range | Performed | Pathologist | | | | | At | Signature | + + + + + + | INR | 1.1Comment: REFERENCE | | [facility] | | | | RANGE:0.9 - 1.2 [...] [place];[address] | | | | | | [facility];[place] | | | | | | [address] | | | | + + + + + + + + | Specimen | + + | Blood | + + + + + + + | Performing | Address | City/State/Zipcode | Phone Number | | Organization | | | | + + + + + | [facility] | [address] | [place] [address] | [phone] | + + + + + CBC [...] [facility] | | | | performed at [facility], [address] | | LABORATORY | | | | [address], | | | | | | [place] [address] | | | | + + + + + + + + | Specimen | + + | Blood | + + + + + + + | Performing | Address | City/State/Zipcode | Phone Number | | Organization | | | | + + + + + | [facility] | [address] | [place] [address] | [phone] | + + + + + Ferritin (08/26/2019 4:25 AM PST) + + + + + + | Component | Value | Ref Range | Performed | Pathologist | | | | | At | Signature | + + + + + + | Ferritin | 144Comment: Testing | 11 - 450 ng/mL | [facility] | | | | performed at [facility], [address] | | LABORATORY | | | | [address], | | | | | | [place] [address] | | | | + + + + + + + + | Specimen | + + | Blood | + + + + + + + | Performing | Address | City/State/Zipcode | Phone Number | | Organization | | | | + + + + + | [facility] | [address] | [place] [address] | [phone] | + + + + + Urinalysis [...] - 1.030 | [facility] | | | [place], | | | LABORATORY | | | [...] [address] | | | | | | [address];[place] [address] | | | | + + + [...] | + + + + + | [facility] | [address] | [place] [address] | [phone] | + + + + + PATHOLOGY [...] +--------+ +---------+--------+ | MEDICARE | MEDICA | [id number] | 04/03/20 | [phone] | | Medica | | | RE | | 14-Pre | 5 | | re | | | PART A | | sent | | | | | | AND B | | | | | | + +--------+ +--------+ +---------+--------+ | [facility] | IHS | [id number] | | | | Indemn | | SERVICE | YELLOW | | 019-Pr | | | ity | | | HAWK | | esent | | | | + +--------+ +--------+ +---------+--------+ | [facility] | IHS | [id number] | 10/04/19 | | | Indemn | | SERVICE | YELLOW | | 19-Pre | | | ity | | | HAWK | | sent | | | | + +--------+ +--------+ +---------+--------+ | MEDICARE | MEDICA | [id number] | 04/03/20 | [phone] | | Medica [...] Person | Self [birth year] | [address] | | | al/Fam | | 1941 | [phone] | [place] [address] | | | [place] | | | 9 (Home) | | + +--------+ +--------+ + + | Arlene Rojas | Person | Self | [birth year] | | [address] | | | al/Fam | | 1941 | [phone] | [place] [address] | | | tun[place] | | | 9 (Home) | | + +--------+ +--------+ + + Advance Directives + + + + + | Type | Date Recorded | Patient | Explanation | | | | Opto Mechanical Technician | | + + + + + | Power of | | | | | Construction Grip | | | | + + + [...]
--- OUTSIDE RECORDS SUMMARY | ~2019-10-12 | XMS | Encounter Summary ---
Demographics + + + | Address | [address] | | | [place] [address] | + + + | Home Phone [...] + + | Author | [facility] | | | and [place] | + + + | Organization | [facility] | | | [...] Team Providers + +------+ + | Care Bindery Operator Name | Role | Phone | [...] + + | 08/26/ | Anesthesia | [facility] | Judson Mcmullen | | | 2019 | Event [facility] | [address] | | | | | OPERATING ROOM [address] | [address] | | | | | [address] | [place] [address] | | | | | [place], [place] | [phone] | | | | | [address] | | | | | | [phone] | | | +--------+ + + + [...] [address] | | | | | | [place] [address] | | | | | | [phone] | | | | | | | [...]
--- OUTSIDE RECORDS SUMMARY | ~2019-10-12 | XMS | Encounter Summary ---
Demographics + + + | Address | [address] | | | [place] [address] | + + + | Home Phone | | + + + | Preferred Language | Unknown | + + + | Marital Status | | + + + | Anglican Affiliation | Unknown | + + + | Race | Unknown | + + + | Ethnic Group | Unknown | + + + Author + + + | Author | [facility] | | | and [place] | + + + | Organization | [facility] | | | [...] Team Providers + +------+ + | Care Pulmonologist/Intensivist Name | Role | Phone | + [...] Trung AYALA | | | | | [phone] | [place] [address] | | +--------+ + + + + [...] [address] | | | | | | [place] [address] | | | | | | [phone] | | | | | | | [...]
--- OUTSIDE RECORDS SUMMARY | ~2019-10-12 | XMS | Encounter Summary ---
Demographics + + + | Address | [address] | | | [place] [address] | + + + | Home Phone | | + + + | Preferred Language | Unknown | + + + | Marital Status | | + + + | Gnosticism Affiliation | Unknown | + + + [...] Team Providers + +------+ + | Care High School Guidance Counselor Name | Role | Phone | [...] Care | Adenocarcino | Paras Leach, | [address] | | | | | ma of | MD [address] | | | | | rectosigmoid | [address] | [place], [place] | | | | | junction | [place], | [address] | | | | | ([facility]) | [place] [address] | Phone: | | | | | | Phone: | [phone] | | | | | | [phone] | Fax: | | | | | | Fax: | [phone] | | | | | | [phone] | | +--------+ + + + + [...] | Required | Oncology | Aden[place]arcino | [address] | Paras Leach MD | | | | | ma of | [address] | [address] | | | | | rectosigmoid | [address] | [address] [place] | | | | | junction | [place], [place] | [place], [place] | | | | | ([facility]) | [address] | [address] Phone: | | | | | | Phone: | [phone] | | | | | | [phone] | Fax: | | | | | | Fax: | [phone] | | | | | | [phone] | | + + + + + + + Encounter Details +--------+ + + + + | Date | Type | Department | Care Team | Description | +--------+ + + + + | 09/14/ | Hospital | [facility] | Pj, | 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
--- OUTSIDE RECORDS SUMMARY | ~2019-10-12 | XMS | Encounter Summary ---
Demographics + + + | Address | [address] | | | [place] [address] | + + + | Home Phone | | + + + | Preferred Language | Unknown | + + + | Marital Status | | + + + | Christian Affiliation | Unknown | + + + | Race | Unknown | + + + | Ethnic Group | Unknown | + + + Author + + + | Author | [facility] | | | and [place] | + + + | Organization | [facility] | | | and [...] Team Providers + +------+ + | Care Electric Meter Inspector Name | Role | Phone | + [...] + + | 09/05/ | Navigation | [facility] | Alva See | | | 2019 | Services | HEMATOLOGY AND | JAIME Persaud | | | | | ONCOLOGY [address] | | | | | | [address] | | | | | | [place] | | | | | | [address] | | | | | | [phone] | | | +--------+ + + + [...] Alva Cross, RN - 09/05/2019 10:11 AM [facility] has been asked by Cristian Adam to refer pt to local oncologist near his home in [place], [place]. Referral entered for Dr Paras crowell, but referral must come from pcp due to insurance requirement. I placed call to pc p's office (Lizette Martinez) and left voicemail for patient care aide, Nanda self need for urgent referral due [...] | | | | | | [facility] [address] | | | | | | [place] [address] | | | | | | [phone] | | | | | | | | +--------+---------+ + + + documented as of this encounter Visit Diagnoses Not on filedocumented in this encounter"
--- OUTSIDE RECORDS SUMMARY | ~2019-10-12 | XMS | Encounter Summary ---
Demographics + + + | Address | [address] | | | [place] [address] | + + + | Home Phone [...] Team Providers + +------+ + | Care Disulfurizer Tender Name | Role | Phone | [...] Trung AYALA | | | | | [phone] | [place] [address] | | +--------+ + + + + [...] [address] | | | | | | [place] [address] | | | | | | [phone] | | | | | | | [...]
[~2019-10-12 19:13] MED LIST changes: +OXYCODONE HCL5 M1 PO
--- OUTSIDE RECORDS SUMMARY | 2019-10-12 19:16 | XMS ---
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 E.D. VISIT COUNT (12 MO.) [address] [place] [address] TOTAL 6 NOTE: Visits indicate total known visits. 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 - Personal history of nicotine dependence 09/07/2019 10:51 [facility] [place] TYPE: Emergency COMPLAINT: - POST OP PROBLEM, ABD SWELLING 09/03/2019 18:23 [facility] [place] TYPE: Emergency COMPLAINT: - POST OP PROBLEM DIAGNOSES: - Hyperlipidemia, unspecified - 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 - Allergy status to oth drug/meds/biol subst status - Cellulitis of abdominal wall - 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 - Essential (primary) hypertension - Allergy status to penicillin - Infection following a procedure, unspecified, init [facility] DIAGNOSES: - Neoplasm of unspecified behavior of digestive system - Stenosis of anus and rectum - Rectal Problems 08/23/2019 09:45 [facility] TYPE: Emergency COMPLAINT: - ABD PAIN INPATIENT VISIT TRACKING (12 MO.) 08/25/2019 16:36 [facility] TYPE: Colorectal Surgery DIAGNOSES: - Neoplasm of unspecified behavior of digestive system - Anemia, unspecified - Stenosis of anus and rectum - Essential (primary) hypertension 08/23/2019 09:46 [facility] [place] TYPE: Observation COMPLAINT: - COLON CANCER DIAGNOSES: - Essential (primary) hypertension - Nicotine dependence, cigarettes, uncomplicated - Allergy status to penicillin - Spondylosis w/o myelopathy or radiculopathy, lumbar region - Neoplasm of unspecified behavior of digestive system - Other detention (current) drug therapy - Unspecified abdominal pain - Other hemorrhoids - Hyperlipidemia, unspecified - Athscl heart disease of [place] coronary artery w/o ang pctrs - Unspecified hearing loss, unspecified ear - Malignant neoplasm of rectum - 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
--- NOTE | 2019-10-12 22:31 | EKG ---
[facility] [address] [facility] [place], [place] [address] Signed Sinus tachycardia Low voltage QRS Septal infarct , age undetermined Abnormal ECG When compared with ECG of 23-AUG-2019 14:26, Criteria for Inferior infarct are no longer present Confirmed by MOISES CAMARA MD ([id number]) on 10/12/2019 10:31:35 PM Electronically Signed By: MOISES CAMARA MD 10/12/192230 PATIENT NAME: HEMANT ROJASBARBARA FLEMING Electrocardiogram DATE OF : 38 PHYSICIAN: MOISES CAMARA MD REPORT #: [id number] REPORT IS CONFIDENTIAL AND NOT TO BE RELEASED WITHOUT AUTHORIZATION
--- NOTE | 2019-10-12 23:45 | NUR ---
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 PT BROUGHT TO CCU BY LINOTYPE OPERATOR NURSE VIA STRETCHER. SISTER AND FRIEND ARRIVE WITH PT. HEPARIN DRIP INFUSING AT 1200 UNITS/HOUR. ALL BELONGINGS IN FAMILY POSSESSION AT THIS TIME. PT HAS PORT A CATH ACCESSED, CHEMO INFUSING. CHEMO PRECAUTIONS IN PLACE.
--- NOTE | 2019-10-13 | NUR ---
PT HAS REDDENED AREA ON COCCYX. ALLEYN DRESSING PLACED AT THIS TIME. PRN PAIN MEDICATION GIVEN, SECOND IV STARTED AND IV FLUIDS NOW INFUSING. PT RESTING WITH EYES CLOSED, DAUGHTER AT BEDSIDE. CALL LIGHT WITHIN REACH. NO FURTHER NEEDS AT THIS TIME.
[2019-10-13] MEDS ORDERED: OXALIPLATIN50 MG ×2 (00:06)
[2019-10-13] MEDS ORDERED: LEUCOVORIN ×2 (00:06)
[2019-10-13] MEDS ORDERED: FLUOROURAC1 GM/20 ML ×2 (00:07)
--- NOTE | 2019-10-13 00:42 | NUR ---
PT UP TO BSC, ONE PERSON ASSIST REQUIRED. PT STEADY ON FEET BUT WEAK. BACK IN BED. NO FURTHER NEEDS.
--- NOTE | 2019-10-13 01:47 | NUR ---
PT CALLS TO STATE HE FEELS HIS LEFT HIP IS HIGHER THAN HIS RIGHT. PT REPOSITIONED USING A FOLDED BLANKET UNDER HIS RIGHT HIP. PT FEELS HE IS IN A BETTER POSITION. NO OTHER NEEDS AT THIS TIME. CALL LIGHT IN REACH. FAMILY IN ROOM.
--- NOTE | 2019-10-13 02:30 | NUR ---
PT AWAKE IN ROOM, DAUGHTER AT BEDSIDE. PT O2 SATURATIONS AT 90 PERCENT ON ROOM AIR. BREATHING UNLABORED.
--- NOTE | 2019-10-13 04:00 | NUR ---
IN ROOM FOR ASSESSMENT. PT LUNGS SOUND DIMINISHED IN BOTH BASES, WORSE ON THE RIGHT LOWER LOBE. DENIES FEELING SHORT OF BREATH OR NEED FOR PAIN MEDICATION AT THIS TIME.
--- NOTE | 2019-10-13 05:00 | NUR ---
RESPONDED TO PT CALL LIGHT. PT UP TO BSC. ONE PERSON ASSIST REQUIRED. PT STEADY ON FEET BUT NEEDS ASSISTANCE MANAGING CORDS. BACK IN BED. ASSISTED WITH REPOSITIONING. CALL LIGHT WITHIN REACH.
--- NOTE | 2019-10-13 05:19 | NUR ---
LAB IN ROOM FOR BLOOD DRAW
--- NOTE | 2019-10-13 06:19 | NUR ---
PT CALLS TO USE BSC. PT UP TO BSC AND BACK TO BED WITH 1PA. PT DENIES PAIN AT THIS TIME. NO FURTHER NEEDS, CALL LIGHT IN REACH. FAMILY MEMBER AT BEDSIDE.
--- NOTE | 2019-10-13 07:15 | NUR ---
PT CALLS TO REPORT HE FEELS SOB. SPO2 96, RA. CAPILLARY REFILL <3 SECONDS. SKIN WARM, DRY AND APPROPRIATE COLOR. RR 14, EVEN, UNLABORED. LUNG SOUNDS CLEAR IN ALL LOBES, DIMINISHED IN LOWER RIGHT LOBE. HOB ELEVATED. PT REPORTS RELIEF. NO OTHER NEEDS. CALL LIGHT IN REACH.
--- NOTE | 2019-10-13 07:20 | NUR ---
Report received, orders acknowledged.
--- NOTE | 2019-10-13 07:45 | NUR ---
Imaging in room with patient performing ECHO
--- NOTE | 2019-10-13 08:10 | NUR ---
Dr. Lowe notified of patient status, orders acknowledged.
--- NOTE | 2019-10-13 08:15 | NUR ---
Case management in room with patient
--- NOTE | 2019-10-13 09:30 | NUR ---
Patient up to BSC with 2PA, voids 75 mls. Fluids running at 50 mls/hr. Patient returned to bed with 2PA and repositioned for comfort. Denies further needs at this time. Call light within reach.
--- NOTE | 2019-10-13 10:00 | NUR ---
In and spoke with Danny and granddaughter, Radhika. He is hard of hearing and Radhika answers most of the questions. Pt lives up the [facility] near [place], has metastatic rectal cancer and is on palliative chemo. Granddaughter states he is frequently in pain and needs repositioned frequently. He does not need any DME as he has walkers, wc, raised toilet seat, and shower chair. He has a special bed which is not to hard or to soft that relieves the pain in his back and rectum. Family want him to return to his house for care on discharge. He lives with Radhika, her aunt and uncle, mom, and two sisters. Other family members assist him on the weekends also. This is a well loved and cared for gentleman who can return home to family following lovenox education for injections.
--- NOTE | 2019-10-13 10:55 | NUR ---
PATIENT IN BED RESTING. ONE OF HIS DAUGHTERS IS IN THE ROOM. SHE HELPS HIM AT HOME BUT THE OTHER DAUGHTER IS IN CHARGE. PATIENT IS HAVING TROUBLE SWALLOWING. HE HAS LOST 40 LBS SINCE . HE RECENTLY STARTED CHEMO FOR RECTAL CA. MILK PRODUCTS DON'T WORK FOR HIM BECAUSE THEY CAUSE PHLEGM AND MUCOUS. NO SWALLOW EVAL ORDERED AT THIS TIME. NURSING AWARE I CHECKED ON PATIENT. IT SEEMS THAT PATIENT WILL NOT BE ABLE TO MEET HIS NUTRITION NEEDS BY MOUTH AT THIS TIME. WILL AWAIT A PLAN AND PROVIDE NUTRITION INTERVENTION IF APPROPRIATE.
--- NOTE | 2019-10-13 11:15 | NUR ---
Patient reports pain of 10/10, prn pain medication given (see MAR). Patient repositioned for comfort. Denies further needs, call light within reach.
--- NOTE | 2019-10-13 12:00 | NUR ---
Dr. Lowe in room to discuss POC with patient. Family at bedside.
--- NOTE | 2019-10-13 14:00 | NUR ---
Patient up to BSC with 2PA, voids 100 mls. Returns to bed with 2PA, repositioned in bed for comfort. Denies further needs at this time, call light within reach.
[2019-10-13] MEDS ORDERED: LOVENOX60 MG SUB-Q ×2 (15:25)
[2019-10-13] MEDS ORDERED: FENTANYL1 EACH TOP ×2 (15:32)
--- NOTE | 2019-10-13 16:00 | NUR ---
Patient up to BSC with 2PA, voids. Fluids running at 50 mls/hr. Returns to bed with 2PA, repositioned in bed for comfort. Denies further needs at this time, call light within reach.
--- NOTE | 2019-10-13 17:00 | NUR ---
Port deaccessed per protocol and heparin locked. Family educated on how to administer an enoxaparin injection, verbalized understanding. No further needs at this time, call light within reach.
--- NOTE | 2019-10-13 17:22 | NUR ---
Discharge instructions given. Patient verbalized understanding of follow up appointment. All questions and concerns answered. Patient and family taught how to administer a subcutaneous injection, verbalized understanding. All personal belongings collected. Port deaccessed per protocol, IV sites D/C'd, cath intact. Vital signs taken. Patient leaves unit via wheelchair with family and nursing staff.
== END 2019-10-13 17:22 | disposition home or self-care (01) ==
LOC: ED 19:13 → CCU 19:15
PROVIDERS: ADMIT Internal Medicine
DX: I26.99 Other pulmonary embolism without acute cor pulmonale (principal); I10 Essential (primary) hypertension; E78.5 Hyperlipidemia, unspecified; H91.90 Unspecified hearing loss, unspecified ear; C20 Malignant neoplasm of rectum; Z87.891 Personal history of nicotine dependence; Z88.0 Allergy status to penicillin; Z88.8 Allergy status to other drugs, medicaments and biological substances; Z79.891 Long term (current) use of opiate analgesic; Z79.899 Other long term (current) drug therapy; Z93.3 Colostomy status; Z92.21 Personal history of antineoplastic chemotherapy
CPT/HCPCS: 36415; 71045; 71260; 80048; 80053; 83735; 83880; 84484; 85025; 85379; 85610; 85730; 93005; 93010; 93306; 96372; 96374; 96375; 99291; G0378; J1644; J1650; J2405; J3480

== ENCOUNTER 2019-10-15 00:56 | Emergency (ER) | payer MEDICARE, OTHER ==
[~2019-10-15] VITALS: Ht 170.2 cm; Wt 65.8 kg
--- OUTSIDE RECORDS SUMMARY | ~2019-10-15 | XMS | Encounter Summary ---
Demographics + + + | Address | [address] | | | [place] [address] | + + + | Home Phone | | + + + | Preferred Language | Unknown | + + + | Marital Status | | + + + | Scientology Affiliation | Unknown | + + + | Race | Unknown | + + + | Ethnic Group | Unknown | + + + Author + + + | Author | [facility] | | | and [place] | + + + | Organization | [facility] | | | and [place] | + + + | Address | Unknown | + + + | Phone | Unavailable | + + + Support + + +---------+ + | Name | Relationship | Address | Phone | + + +---------+ + | Gissel Delgado | ECON | Unknown | | + + +---------+ + Care Team Providers + +------+ + | Care Rubber Vulcanizing Machine Operator Name | Role | Phone | + +------+ + | Lizette Martinez | PCP | | + +------+ + Encounter Details +--------+ + + + + | Date | Type | Department | Care Team | Description | +--------+ + + + + | 09/14/ | Abstract | [facility] | Miley Wright, | | | 2018 | | [facility] | [facility] | | | | | [facility] [address] | | | | | | [address] | | | | | | [place] [address] | | | | | | [phone] | | | +--------+ + + + + Social History + + + +--------+------+ | Tobacco Use | Types | Packs/Day | Years | Date | | | | | Used | | + + + +--------+------+ | Current Every Day | Cigarettes | 0.2 | 65 | | | Smoker | | | | | + + + +--------+------+ + +---+---+---+ | Smokeless Tobacco: | | | | | Never Used | | | | + +---+---+---+ + + | Comments: 08/23/2019 | + + + + +---------+ + | Alcohol Use | Drinks/Week | oz/Week | Comments | + + +---------+ + | Yes | 6 Shots of liquor | 6.0 | Alcoholic | | | | | Drinks/day: binge | | | | | drinking on | | | | | Saturdays. None | | | | | since late june | + + +---------+ + + + + | Sex Assigned at | Date Recorded | | | | + + + | Not on file | | + + + + + + + | Job Start Date | Occupation | Industry | + + + + | Not on file | Not on file | Not on file | + + + + + + + + | Travel History | Travel Start | Travel End | + + + + + + | No recent travel history available. | + + documented as of this encounter Functional Status + + + + | Functional Status | Response | Date of Assessment | + + + + | Are you deaf or do you have serious | Yes | 08/25/2019 | | difficulty hearing? | | | + + + + | Are you blind or do you have serious | No | 08/25/2019 | | difficulty seeing, even when wearing | | | | glasses? | | | + + + + | Do you have serious difficulty walking or | Yes | 08/25/2019 | | climbing stairs? (5 years old or older) | | | + + + + | Do you have difficulty dressing or bathing? | No | 08/25/2019 | | (5 years old or older) | | | + + + + | Because of a physical, mental, or emotional | No | 08/25/2019 | | condition, do you have difficulty doing | | | | errands alone such as visiting a doctor's | | | | office or shopping? [15 years old or | | | | older)] | | | + + + + + + + + | Cognitive Status | Response | Date of Assessment | + + + + | Because of a physical, mental, or emotional | No | 08/25/2019 | | condition, do you have serious difficulty | | | | concentrating, remembering, or making | | | | decisions? (5 years old or older) | | | + + + + documented as of this encounter Plan of Treatment +--------+---------+ + + + | Date | Type | Specialty | Care Team | Description | +--------+---------+ + + + | 10/16/ | Office | Wound Care | Jair, | | | 2020 | Visit | | [address] | | | | | | [address] | | | | | | [place] [address] | | | | | | [phone] | | | | | | | | +--------+---------+ + + + documented as of this encounter Visit Diagnoses Not on filedocumented in this encounter"
--- OUTSIDE RECORDS SUMMARY | ~2019-10-15 | XMS | Encounter Summary ---
Demographics + + + | Address | [address] | | | [place] [address] | + + + | Home Phone | | + + + | Preferred Language | Unknown | + + + | Marital Status | | + + + | Jewish Affiliation | Unknown | + + + | Race | Unknown | + + + | Ethnic Group | Unknown | + + + Author + + + | Author | [facility] | | | and [place] | + + + | Organization | [facility] | | | [...] Team Providers + +------+ + | Care Muff Winder Name | Role | Phone | + +------+ + | Lizette Martinez | PCP | | + +------+ + Encounter Details +--------+ + + + + | Date | Type | Department | Care Team | Description | +--------+ + + + + | 05/11/ | Orders Only | [facility] | Conversion | | | 2019 | | CONVERSION [address]P [address] | Transaction, | | | | | [address] | Provider Unknown | | | | | [place] | | | | | | [phone] | (Fax) | | | | | [phone] | | | +--------+ + + + + Social History + +-------+ +--------+------+ | Tobacco Use | Types | Packs/Day | Years | Date | | | | | Used | | + +-------+ +--------+------+ | Current Every Day | | 0.2 | | | | Smoker | | | | | + +-------+ +--------+------+ + + + | Sex Assigned at [...] [address] | | | | | | [place] [address] | | | | | | [phone] | | | | | | | | +--------+---------+ + + + documented as of this encounter Visit Diagnoses Not on filedocumented in this encounter"
--- OUTSIDE RECORDS SUMMARY | ~2019-10-15 | XMS | Encounter Summary ---
Demographics + + + | Address | [address] | | | [place] [address] | + + + | Home Phone | | + + + | Preferred Language | Unknown | + + + | Marital Status | | + + + | Yarsanism Affiliation | Unknown | + + + | Race | Unknown | + + + | Ethnic Group | Unknown | + + + Author + + + | Author | [facility] | | | and [place] | + + + | Organization | [facility] | | | and [place] | + [...] Team Providers + +------+ + | Care Banquet Prep Cook Name | Role | Phone | + +------+ + | Lizette Martinez | PCP | | + +------+ + Encounter Details +--------+ + + + + | Date | Type | Department | Care Team | Description | +--------+ + + + + | 09/13/ | Imaging | [facility] | Provider, | | | 2019 | Exam | [facility] | [address] | | | | | IMAGING | [address] | | | | | [phone] | [place] [address] | | +--------+ + + + + [...] | | | + +---+---+---+ + + +---------+ + | Alcohol Use | Drinks/Week | oz/Week | Comments | + + +---------+ + | Yes | 6 Shots of liquor | 6.0 | Alcoholic | | | | | Drinks/day: binge | | | | | drinking on | | | | | Saturdays | + + +---------+ + + + [...] [address] | | | | | | [place] [address] | | | | | | [phone] | | | | | | | | +--------+---------+ + + + documented as of this encounter Procedures + +--------+ + + + | Procedure Name | Priori | Date/Time | Associated Diagnosis | Comments | | | ty | | | | + +--------+ + + + | CT ABDOMEN PELVIS W | Routin | 09/03/2019 | | Results for this | | CONTRAST | e | 12:00 AM | | procedure are in the | | | | PST | | results section. | + +--------+ + + + documented in this encounter Results CT Abdomen Pelvis w Contrast (09/03/2019 12:00 AM PST) + + | Specimen | + + | | + + + + + | Narrative | Performed At | + + + | External films for comparison only | [facility] | | | | | No results will be in the chart. | | + + + + +---------+ + + | Performing | Address | City/State/Zipcode | Phone Number | | Organization | | | | + +---------+ + + | [facility] | | | | + +---------+ + + documented in this encounter Visit Diagnoses Not on filedocumented in this encounter"
--- OUTSIDE RECORDS SUMMARY | ~2019-10-15 | XMS | Clinical Summary ---
Demographics + + + | Address | [address] | | | [place] [address] | + + + | Home Phone | | + + + | Preferred Language | Unknown | + + + | Marital Status | | + + + | Jewish Affiliation | Unknown | + + + | Race | Unknown | + + + | Ethnic Group | Unknown | + + + Author + + + | Author | [facility] | | | and [place] | + + + | Organization | [facility] | | | and [place] | + + + | Address | Unknown | + + + | Phone | Unavailable | + + + Support + + +---------+ + | Name | Relationship | Address | Phone | + + +---------+ + | Gissel Rojas | ECON | Unknown | | + + +---------+ + Care Team Providers + +------+ + | Care Project Management Director Name | Role | Phone | + +------+ + | Lizette Martinez | PCP | | + +------+ + Allergies + + + + + + | Active Allergy | Reactions | Severity | Noted | Comments | | | | | Date | | + + + + + + | Sulfamethoxazole-Tri | Unknown | | 09/14/20 | | | methoprim | | | 19 | | + + + + + + | Penicillins | Swelling | | 08/25/20 | | | | | | 19 | | + + + + + + | Zinc Oxide | Hives | | 07/10/20 | | | | | | 19 | | + + + + + + Medications + + + +---------+------+------+-------+ | Medication | Sig | Dispensed | Refills | Star | End | Statu | | | | | | t | Date | s | | | | | | Date | | | + + + +---------+------+------+-------+ | aspirin 325 mg | Take 325 mg by mouth | | 0 | 08/0 | | Activ | | tablet | daily with | | | 05/23 | | e | | | breakfast. | | | 19 | | | + + + +---------+------+------+-------+ | atorvaSTATin | Take 10 mg by mouth | | 0 | 08/0 | | Activ | | (LIPITOR) 10 mg | nightly. | | | 8/20 | | e | | tablet | | | | 19 | | | + + + +---------+------+------+-------+ | Multiple | Take 1 tablet by | | 0 | | | Activ | | Vitamins-Minerals | mouth Daily. | | | | | e | | (MULTIVITAMIN ADULT | | | | | | | | PO) | | | | | | | + + + +---------+------+------+-------+ | polyethylene | Take 1 diluted | 30 | 0 | 11/2 | | Activ | | glycol (MIRALAX) | packet by mouth | packet | | 7/20 | | e | | packet | Daily as needed for | | | 19 | | | | | Constipation. | | | | | | + + + +---------+------+------+-------+ | lisinopril | Take 10 mg by mouth | | 0 | | | Activ | | (PRINIVIL, ZESTRIL) | Daily. | | | | | e | | 10 mg tablet | | | | | | | + + + +---------+------+------+-------+ | omeprazole | Take 20 mg by mouth | | 0 | | | Activ | | (PRILOSEC) 20 mg | every morning | | | | | e | | capsule | (before breakfast). | | | | | | + + + +---------+------+------+-------+ | metroNIDAZOLE | Take 500 mg by mouth | | 0 | | | Activ | | (FLAGYL) 500 MG | 3 times daily. | | | | | e | | tablet | | | | | | | + + + +---------+------+------+-------+ | levoFLOXacin | Take 500 mg by mouth | | 0 | | | Activ | | (LEVAQUIN) 500 mg | Daily. | | | | | e | | tablet | | | | | | | + + + +---------+------+------+-------+ | loperamide | Take 2 mg by mouth 4 | | 0 | | | Activ | | (IMODIUM) 2 mg | times daily as | | | | | e | | capsule | needed for Diarrhea. | | | | | | + + + +---------+------+------+-------+ | ciprofloxacin | Take 500 mg by mouth | | 0 | | | Activ | | (CIPRO) 500 mg | 2 times daily. | | | | | e | | tablet | | | | | | | + + + +---------+------+------+-------+ | oxyCODONE | Take 1 tablet by | 100 | 0 | 12/1 | | Activ | | (ROXICODONE) 5 mg | mouth every 4 hours | tablet | | 2/20 | | e | | tablet | as needed for Pain. 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 Presentation to the [facility] Emergency Room | | on August 23, 2019 with a 10 week history of abdominal | | distension and pain, and bloody diarrhea.2. CT scan | | abdomen/pelvis on August 23, 2019 at [facility] | | demonstrated significant nodularity in the omentum and mesentery, | | thickened rectosigmoid with diminished lumen. No liver | | metastases, nodule at left lung base. 3. Limited colonoscopy and | | rigid proctoscopy (Tahir) on August 24, 2019 demonstrated a | | circumferential palpable mass palpable within the rectum, | | estimated to be 10 cm long by proctoscopy. Specimen # [id number] | | ([place], Shodogg); Pooly differentiated | | adenocarcinoma, with signet ring features. CEA 61.18 ng/ml (ULN | | 3.8 ng.ml).4. Abdominal laparoscopic exploration with diverting | | colostomy and omental biopsies, flexible sigmoidoscopy and | | biopsy, August 26, 2019 (Derrick Tyson). Findings included | | omental, peritoneal and mesenteric metastases, and a 10 cm long | | rectosigmoid carcinoma. Specimen # unk: A: abdominal peritoneum, | | biopsy: metastatic adenocarcinoma with signet ring cell features. | | B: Omentum biopsy; metastatic adenocarcinoma with signet ring | | cell features. Rectosigmoid biopsy; invasive adenocarcinoma, | | poorly diffentiated, with signet ring cell features. 5. Repeat CT | | abdomen/pelvis with contrast on September 03, 2019 ([facility], | | [place]); innumerable mesenteric and omental soft tissue | | nodules, largest 3 x 5.5 cm, right basilar pleural effusion and | | bilateral pleural nodularity suspicious for metastatic disease. | | Last Assessment & Plan: Arlene Rojas is referred by Sree | | Yifan Adam [address] [facility] [address] [place] [address] for | | evaluation and management of confirmed regionally metastatic | | colon cancer to the omentum, with unconfirmed metastatic disease | | to the right lung.I met with Crystal and his daughter, Gissel, at | | the [facility] on | | 09/14/2019.Review of systems is notable for rectal pain.Clinical | | exam is notable for decreased breath sounds and dullness at the | | right base.Laboratory exam is notable for elevated CEA.Images | | from his [facility] evaluations were | | reviewed.Assessment: confirmed regionally metastatic colon cancer | | to the omentum, with unconfirmed metastatic disease to the right | | lung.Plan; This was an extended, high-value encounter were we | | reviewed Mr. Rojas's [id number], his goals of therapy and | | his options, including no treatment, in an unbiased and | | non-promotional manner.Mr. Rojas delineated that his goal is to | | delay further symptomatic progression of disease with active | | treatment. I described the toxicities and logistics of treatment | | with FOLFOX chemotherapy including the need for stable | | intravenous access. Mr. Rojas indicated that he is motivated to | | proceed with treatment directly at [facility] in | | [place], [place]. He will be referred to Dr. Emeterio Haro for a | | port-a-cath. He received a prescription for oxycodone IR 5 mg for | | his malignant-neoplasm related pain. | + + + + + | Rectal mass | 08/25/2019 | + + + | Anemia | 08/25/2019 | + + + | Colorectal tumor | 08/25/2019 | + + + + + | Overview: Added automatically from request for surgery | | [id number] | + + + + + | Rectal obstruction | 08/25/2019 | + + + + + | Overview: Added automatically from request for surgery | | [id number] | + + + + + | Chest pressure | 07/10/2019 | + + + | Tobacco abuse | | + + + | Hypertension | | + + + | Hyperlipidemia | | + + + Encounters +--------+ + + + + | Date | Type | Specialty | Care Team | Description | +--------+ + + + + | 09/21/ | Documentati | General Surgery | Jair, | | | 2018 | on | | YIFAN Balbuena | | +--------+ + + + + | 09/20/ | Office | General Surgery | Jair, | Adenocarcinoma of | | 2018 | Visit | | YIFAN Balbuena | rectosigmoid | | | | | | junction (HCC) | | | | | | (Primary Dx) | +--------+ + + + + | 09/14/ | Hospital | Oncology | Pj, | Adenocarcinoma of | | 2018 | Encounter | | Paras Leach MD | rectosigmoid | | | | | | junction (HCC) | +--------+ + + + + | 09/14/ | Abstract | Oncology | Miley Wright, | | | 2019 | | | DIRECTOR TARGETED MARKETING | | +--------+ + + + + | 09/13/ | Imaging | Radiology | Jaya, | | | 2018 | Exam | | MD Ej | | +--------+ + + + + | 09/13/ | Imaging | Radiology | Provider, | | | 2018 | Exam | | MD Ej | | +--------+ + + + + | 09/13/ | Imaging | Radiology | Provider, | | | 2018 | Exam | | MD Ej | | +--------+ + + + + | 09/05/ | Documentati | General Surgery | Evelyne Gonzalez, | | | 2018 | on | | Business Support Administrator | | +--------+ + + + + | 09/05/ | Navigation | Oncology | Alva See | | | 2018 | Services | | JAIME Persaud | | +--------+ + + + + | 09/05/ | Orders Only | General Surgery | Alva See | Adenocarcinoma of | | 2018 | | | R, RN | rectosigmoid | | | | | | junction (HCC) | | | | | | (Primary Dx) | +--------+ + + + + | 08/26/ | Anesthesia | | Judson Mcmullen | | 2018 | Event | | DEANNA Toure | | +--------+ + + + + | 08/26/ | Surgery | | Phong Tyson, | LAPAROSCOPIC | | 2018 | | | MD | COLOSTOMY CREATION | +--------+ + + + + | 08/26/ | Hospital | Radiology | Phong Tyson, | | | 2018 | Encounter | | | | +--------+ + + + + | 08/25/ Hospital | General Surgery | Enio Lange, | Colorectal tumor | | 2019 - | Encounter | | Errol Alcocer, | (Primary Dx); Rectal | | | | | Giuliano Grimm, | obstruction; | | 08/30/ | | | Jasmin Stanton, | Colorectal tumor; | | 2018 | | | MD | Rectal obstruction; | | | | | | Anemia, unspecified | | | | | | type; Essential | | | | | | hypertension | +--------+ + + + + from Last 3 Months Immunizations + + + + | Name | Administration Dates | Next Due | + + + + | INFLUENZA PF | 08/29/2019 () | | | QUAD(PED/ADOL/ADULT) | | | | ,PSKT or VIAL | | | + + + + | PNEUMOCOCCAL | 08/29/2019 () | | | CONJUGATE 13-VALENT | | | | (PCV13) | | | + + + + Family History + + +------+ + | Medical History | Relation | Name | Comments | + + +------+ + | Alzheimer's disease | Brother | | | + + +------+ + | Cancer | Brother | | GI | + + +------+ + | Seizures | Father | | | + + +------+ + | Alcohol abuse | Mother | | | + + +------+ + | Other (see comment) | Sister | | CVA | + + +------+ + + +------+ + + | Relation | Name | Status | Comments | + +------+ + + | Brother | | Alive | | + +------+ + + | Brother | | | | | | | (Age | | | | | 56) | | + +------+ + + | Brother | | | | + +------+ + + | Brother | | | | + +------+ + + | Brother | | | | + +------+ + + | Daughter | | Alive | | + +------+ + + | Daughter | | Alive | | + +------+ + + | Daughter | | Alive | | + +------+ + + | Daughter | | Alive | | + +------+ + + | Father | | | drowned in a MVA | | | | (Age | | | | | 48) | | + +------+ + + | Maternal Grandfather | | | | + +------+ + + | Maternal Grandmother | | | | + +------+ + + | Mother | | | alcoholism | | | | (Age | | | | | 48) | | + +------+ + + | Paternal Grandfather | | | | + +------+ + + | Paternal Grandmother | | | | + +------+ + + | Sister | | Alive | | + +------+ + + | Sister | | Alive | | + +------+ + + | Sister | | | | + +------+ + + | Sister | | | | + +------+ + + | Sister | | | | + +------+ + + | Son | | Alive | | + +------+ + + | Son | | Alive | | + +------+ + + Social History + + + [...] | | + +---+---+---+ + + | Tobacco Cessation: Ready to Quit: No; Counseling Given: Yes | | Comments: 08/23/2019 | + + + [...] recent travel history available. | + + Last Filed Vital Signs + + + + + | Vital Sign | Reading | Time Taken | Comments | + + + + + | Blood Pressure | 114/64 | 09/20/2019 10:18 AM | | | | | PST | | + + + + + | Pulse | 56 | 09/14/2019 2:42 PM | | | | | PST | | + + + + + | Temperature | 36.6 C (97.9 F) | 09/20/2019 10:18 AM | | | | | PST | [...] | | + + + + + Plan of Treatment +--------+---------+ + + + | Date | Type | Specialty | Care Team | Description | +--------+---------+ + + + | 10/16/ | Office | Wound Care | Jair, | | | 2020 | Visit | | YIFAN Balbuena [address] | | | | | | [address] | | | | | | [place] [address] | | | | | | [phone] | | | | | | | | +--------+---------+ + + + + + + + + | Health Maintenance | Due Date | Last Done | Comments | + + + + + | Vaccine: | | | | | Dtap/Tdap/Td (1 - | 1 | | | | Tdap) | | | | + + + + + | Vaccine: Zoster (1 | | | | | of 2) | 0 | | | + + + + + | Vaccine: | | | | | Pneumococcal 65+ (1 | 5 | | | | of 2 - PCV13) | | | | + + + + + | Adult Annual | | | | | Wellness Visit | 9 | | | + + + + + | Vaccine: Influenza | | 07/06/2013 | | | (#1) | 9 | | | + + + + + Procedures + +--------+ + + + | [...] | + +--------+ + + + | US ABDOMEN LIMITED | Routin | 09/07/2019 | | Results for this | | | e | 12:00 AM | | [...] | + +--------+ + + + | COMPREHENSIVE | Routin | 08/30/2019 | | Results for this | | METABOLIC PANEL | e | 4:29 AM | | procedure are in the | | | | PST | | results section. | + +--------+ + + + | CBC WITH | Routin | 08/30/2019 | | Results for this | | DIFFERENTIAL | e | 4:29 AM | | procedure are in the | | | | PST | | results section. | + +--------+ + + + | PHOSPHORUS | Routin | 08/29/2019 | | Results for this | | | e | 4:53 AM | | procedure are in the | | | | PST | | results section. | + +--------+ + + + | MAGNESIUM | Routin | 08/29/2019 | | Results for this | | | e | 4:53 AM | | procedure are in the | | | | PST | | results section. | + +--------+ + + + | BASIC METABOLIC | Routin | 08/29/2019 | | Results for this | | PANEL | e | 4:53 AM | | procedure are in the | | | | PST | | results section. | + +--------+ + + + | CBC WITH | Routin | 08/29/2019 | | Results for this | | DIFFERENTIAL | e | 4:53 AM | | procedure are in the | | | | PST | | results section. | + +--------+ + + + | POC GLUCOSE (NON | Routin | 08/28/2019 | | Results for this | | ORD) | e | 4:41 PM | | procedure are in the | | | | PST | | results section. | + +--------+ + + + | POC GLUCOSE (NON | Routin | 08/28/2019 | | Results for this | | ORD) | e | 12:11 PM | | procedure are in the | | | | PST | | results section. | + +--------+ + + + | POC GLUCOSE (NON | Routin | 08/28/2019 | | Results for this | | ORD) | e | 8:48 AM | | procedure are in the | | | | PST | | results section. | + +--------+ + + + | PHOSPHORUS | Routin | 08/28/2019 | | Results for this | | | e | 4:18 AM | | procedure are in the | | | | PST | | results section. | + +--------+ + + + | MAGNESIUM | Routin | 08/28/2019 | | Results for this | | | e | 4:18 AM | | procedure are in the | | | | PST | | results section. | + +--------+ + + + | BASIC METABOLIC | Routin | 08/28/2019 | | Results for this | | PANEL | e | 4:18 AM | | procedure are in the | | | | PST | | results section. | + +--------+ + + + | CBC WITH | Routin | 08/28/2019 | | Results for this | | DIFFERENTIAL | e | 4:18 AM | | procedure are in the | | | | PST | | results section. | + +--------+ + + + | POC GLUCOSE (NON | Routin | 08/27/2019 | | Results for this | | ORD) | e | 8:35 PM | | procedure are in the | | | | PST | | results section. | + +--------+ + + + | POC GLUCOSE (NON | Routin | 08/27/2019 | | Results for this | | ORD) | e | 12:05 PM | | procedure are in the | | | | PST | | results section. | + +--------+ + + + | POC GLUCOSE (NON | Routin | 08/27/2019 | | Results for this | | ORD) | e | 8:01 AM | | procedure are in the | | | | PST | | results section. | + +--------+ + + + | PHOSPHORUS | Routin | 08/27/2019 | | Results for this | | | e | 5:10 AM | | procedure are in the | | | | PST | | results section. | + +--------+ + + + | MAGNESIUM | Routin | 08/27/2019 | | Results for this | | | e | 5:10 AM | | procedure are in the | | | | PST | | results section. | + +--------+ + + + | BASIC METABOLIC | Routin | 08/27/2019 | | Results for this | | PANEL | e | 5:10 AM | | procedure are in the | | | | PST | | results section. | + +--------+ + + + | CBC WITH | Routin | 08/27/2019 | | Results for this | | DIFFERENTIAL | e | 5:10 AM | | procedure are in the | | | | PST | | results section. | + +--------+ + + + | POC GLUCOSE (NON | Routin | 08/27/2019 | | Results for this | | ORD) | e | 4:06 AM | | procedure are in the | | | | PST | | results section. | + +--------+ + + + | POC GLUCOSE (NON | Routin | 08/26/2019 | | Results for this | | ORD) | e | 9:14 PM | | procedure are in the | | | | PST | | results section. | + +--------+ + + + | SURGICAL PATHOLOGY | Routin | 08/26/2019 | Colorectal tumor | Results for this | | EXAM | e | 12:14 PM | Rectal obstruction | procedure are in the | | | | PST | | results section. | + +--------+ + + + | STORED IMAGE GENERAL | Routin | 08/26/2019 | | Results for this | | SURGERY | e | 12:03 PM | | procedure are in the | | | | PST | | results section. | + +--------+ + + + | ANE NASO/ORAL TUBE | Routin | 08/26/2019 | | Results for this | | NOTE | e | 11:53 AM | | procedure are in the | | | | PST | | results section. | + +--------+ + + + | ANE AIRWAY NOTE | Routin | 08/26/2019 | | Results for this | | | e | 11:52 AM | | procedure are in the | | | | PST | | results section. | + +--------+ + + + | SIGMOIDOSCOPY | | 08/26/2019 | Colorectal tumor | | | FLEXIBLE | | 11:11 AM | Rectal obstruction | | | | | PST | | | + +--------+ + + + | LAPAROSCOPIC | | 08/26/2019 | Colorectal tumor | | | COLOSTOMY CREATION | | 11:11 AM | Rectal obstruction | | | | | PST | | | + +--------+ + + + | ECG 12 LEAD | Timed | 08/26/2019 | | Results for this | | | | 7:41 AM | | procedure are in the | | | | PST | | results section. | + +--------+ + + + | XR CHEST 1 VIEW | Routin | 08/26/2019 | | Results for this | | | e | 5:27 AM | | procedure are in the | | | | PST | | results section. | + +--------+ + + + | TYPE AND SCREEN | Timed | 08/26/2019 | | Results for this | | | | 4:30 AM | | procedure are in the | | | | PST | | results section. | + +--------+ + + + | PROTIME INR | Routin | 08/26/2019 | | Results for this | | | e | 4:25 AM | | procedure are in the | | | | PST | | results section. | + +--------+ + + + | FERRITIN | Routin | 08/26/2019 | | Results for this | | | e | 4:25 AM | | procedure are in the | | | | PST | | results section. | + +--------+ + + + | IRON AND IRON | Routin | 08/26/2019 | | Results for this | | BINDING CAPACITY | e | 4:25 AM | | procedure are in the | | | | PST | | results section. | + +--------+ + + + | CBC NO DIFFERENTIAL | Routin | 08/26/2019 | | Results for this | | | e | 4:25 AM | | procedure are in the | | | | PST | | results section. | + +--------+ + + + | BASIC METABOLIC | Routin | 08/26/2019 | | Results for this | | PANEL | e | 4:25 AM | | procedure are in the | | | | PST | | results section. | + +--------+ + + + | URINALYSIS WITH | STAT | 08/25/2019 | | Results for this | | MICROSCOPIC | | 6:39 PM | | procedure are in the | | | | PST | | results section. | + +--------+ + + + | COMPREHENSIVE | STAT | 08/25/2019 | | Results for this | | METABOLIC PANEL | | 6:22 PM | | procedure are in the | | | | PST | | results section. | + +--------+ + + + | CBC WITH | STAT | 08/25/2019 | | Results for this | | DIFFERENTIAL | | 6:22 PM | | procedure are in the | | | | PST | | results section. | + +--------+ + + + | ED INFORMATION | Routin | 08/25/2019 | | | | EXCHANGE | e | 4:36 PM | | | | | | PST | | | + +--------+ + + + +---+--------+ | | | | | Proced | | | ure | | | Note - | | | Evens, | | | Lab In | | | | | | Hlseve | | | n - | | | 08/25/ | | | 2019 | | | 4:37 | | | PM PST | | | | | | Format | | | ting | | | of | | | this | | | note | | | might | | | be | | | differ | | | ent | | | from | | | the | | | origin | | | al.COL | | | LECTIV | | | E?NOTI | | | FICATI | | | ON?11/ | | | 22/201 | | | 9 | | | 16:36? | | | CRYSTAL, | | | | | | FERMOR | | | E | | | J?MRN: | | | | | | [id number] | | | [id number] | | | riteri | | | a Met | | | 2 in | | | 2Secur | | | ity | | | and | | | Safety | | | No | | | recent | | | | | | Securi | | | ty | | | Events | | | | | | curren | | | tly on | | | | | | fileED | | | Care | | | Guidel | | | inesTh | | | ere | | | are | | | curren | | | tly no | | | ED | | | Care | | | Guidel | | | duc | | | for | | | this | | | patien | | | t. | | | Please | | | check | | | your | | | facili | | | ty's | | | medica | | | l | | | record | | | s | | | system | | | .Presc | | | riptio | | | n Drug | | | | | | Report | | | (12 | | | Mo.)PD | | | MP | | | query | | | found | | | no | | | report | | | .E.D. | | | Visit | | | Count | | | (12 | | | mo.)Fa | | | cility | | | | | | Visits | | | Low | | | Acuity | | | | | | [facility] | | | | | | [facility] | | | al | | | Medica | | | l | | | Center | | | 1 0 | | | [facility] [place] [facility] | | [facility] | | | al 1 0 | | | Total | | | 2 0 | | | Note: | | | Visits | | | | | | indica | | | te | | | total | | | known | | | visits | | | . | | | Medica | | | id Low | | | | | | Acuity | | | Dx | | | are | | | the | | | number | | | of | | | primar | | | y | | | diagno | | | ses on | | | the | | | Medica | | | id's | | | Low | | | Acuity | | | dx | | | list. | | | | | | Recent | | | | | | Emerge | | | ncy | | | Depart | | | ment | | | Visit | | | Summar | | | yDate | | | Facili | | | ty | | | City | | | State | | | Type | | | Diagno | | | ses or | | | Chief | | | | | | Compla | | | int | | | Nov | | | 22, | | | 2019 | | | [facility] | | | | | | [facility] | | | al | | | [facility] | | | [place] | | | [place] | | | Emerge | | | ncy | | | Nov | | | 20, | | | 2019 | | | [facility] [place] | | | [place] | | | [place] | | | Emerge | | | ncy | | | Chief | | | Compla | | | int: | | | ABD | | | PAIN | | | Recent | | | | | | Inpati | | | ent | | | Visit | | | Summar | | | yDate | | | Facili | | | ty | | | City | | | State | | | Type | | | Diagno | | | ses or | | | Chief | | | | | | Compla | | | int | | | Nov | | | 20, | | | 2019 | | | [facility] [place] [facility] | | | [place] | | | [place] | | | Observ | | | ation | | | Chief | | | | | | Compla | | | int: | | | COLON | | | CANCER | | | Care | | | | | | TeamTh | | | ere is | | | not a | | | care | | | team | | | on | | | record | | | at | | | this | | | time. | | | [facility] | | | tive | | | Portal | | | This | | | patien | | | t has | | | regist | | | ered | | | at the | | | | | | [facility] | | | | | | Region | | | al | | | Medica | | | l | | | Center | | | | | | Emerge | | | ncy | | | Depart | | | ment | | | For | | | more | | | inform | | | ation | | | visit: | | | | | | https: | | | //secu | | | re.col | | | lectiv | | | emedic | | | al.com | | | /notif | | | [phone] | | | [phone] | | | [phone] | | | [phone] | | | [phone] | | | [id number] | | | 41 | | | PLEASE | | | NOTE: | | | 1. | | | Any | | | care | | | recomm | | | endati | | | ons | | | and | | | other | | | clinic | | | al | | | inform | | | ation | | | are | | | provid | | | ed as | | | guidel | | | duc | | | or for | | | | | | histor | | | ical | | | purpos | | | es | | | only, | | | and | | | provid | | | ers | | | should | | | | | | exerci | | | se | | | their | | | own | | | clinic | | | al | | | judgme | | | nt | | | when | | | provid | | | ing | | | care. | | | 2. | | | You | | | may | | | only | | | use | | | this | | | inform | | | ation | | | for | | | purpos | | | es of | | | treatm | | | ent, | | | paymen | | | t or | | | health | | | care | | | operat | | | ions | | | activi | | | ties, | | | and | | | subjec | | | t to | | | the | | | limita | | | tions | | | of | | | applic | | | able | | | [facility] | | | tive | | | Polici | | | es. | | | 3. | | | You | | | should | | | | | | consul | | | t | | | direct | | | ly | | | with | | | the | | | organi | | | zation | | | that | | | provid | | | ed a | | | care | | | guidel | | | ine or | | | other | | | | | | clinic | | | al | | | histor | | | y with | | | any | | | questi | | | ons | | | about | | | additi | | | onal | | | inform | | | ation | | | or | | | accura | | | cy or | | | comple | | | teness | | | of | | | inform | | | ation | | | provid | | | ed.? | | | 2019 | | | [employer] | | | tive | | | [facility] | | | l | | | [employer] | | | logies | | | , [employer] | | | - | | | [email or web address] | | | llecti | | | vemedi | | | [email or web address] | | | m | +---+--------+ + +--------+ +---+ + | PATHOLOGY - EXTERNAL | | 08/24/2019 | | Results for this | | SCAN | | 12:00 AM | | procedure are in the | | | | PST | | results section. | + +--------+ +---+ + | IMAGING REPORT - | | 08/23/2019 | | Results for this | | EXTERNAL SCAN | | 12:00 AM | | procedure are in the | | | | PST | | results section. | + +--------+ +---+ + | CT ABDOMEN PELVIS W | Routin | 08/23/2019 | | Results for this | | CONTRAST | e | 12:00 AM | | procedure are in the | | | | PST | | results section. | + +--------+ +---+ + | LABS - EXTERNAL SCAN | | 08/04/2019 | | Results for this | | | | 12:00 AM | | procedure are in the | | | | PDT | | results section. | + +--------+ +---+ + from Last 3 Months Results IMAGING REPORT - EXTERNAL SCAN (09/07/2019 12:00 AM PST)Only the most recent of 2 results w ithin the time period is included. + + + | Narrative | Performed At | + + + | Ordered by an | | | unspecified provider. | | + + + US Abdomen Limited (09/07/2019 12:00 AM PST) + + | Specimen [...] | | | + +---------+ + + CT Abdomen Pelvis w Contrast (09/03/2019 12:00 AM PST)Only the most recent of 2 results wit zachery the time period is included. + + | Specimen | + + [...] | | | + +---------+ + + CBC with Differential (08/30/2019 4:29 AM PST)Only the most recent of 5 results within the time period is included. + + + + + + | Component | Value | Ref Range | Performed | Pathologist | | | | | At | Signature | + + + + + + | WBC | 8.15 | 3.80 - 11.00 | [facility] | | | | | K/uL | LABORATORY | | + + + + + + | RBC | 3.69 (L) | 4.20 - 5.70 | [facility] | | | | | M/uL | LABORATORY | | + + + + + + | Hemoglobin | 11.7 (L) | 13.2 - 17.0 | [facility] | | | | | g/dL | LABORATORY | | + + + + + + | Hematocrit | 33.7 (L) | 39.0 - 50.0 % | [facility] | | | | | | LABORATORY | | + + + + + + | MCV | 91.5 | 80.0 - 100.0 fl | [facility] | | | | | | LABORATORY | | + + + + + + | MCH | 31.8 | 27.0 - 34.0 pg | [facility] | | | | | | LABORATORY | | + + + + + + | MCHC | 34.7 | 32.0 - 35.5 | [facility] | | | | | g/dL | LABORATORY | | + + + + + + | RDW-SD | 45.5 | 37 - 53 fl | [facility] | | | | | | LABORATORY | | + + + + + + | Platelet | 255 | 150 - 400 K/uL | [facility] | | | Count | | | LABORATORY | | + + + + + + | MPV | 9.0 | fl | [facility] | | | | | | LABORATORY | | + + + + + + | Diff Type | AUTOMATED | | [facility] | | | | | | LABORATORY | | + + + + + + | % | 77.22 | % | [facility] | | | Neutrophils | | | LABORATORY | | + + + + + + | % | 11.08 | % | [facility] | | | Lymphocytes | | | LABORATORY | | + + + + + + | Monocyte % | 9.21 | % | [facility] | | | | | | LABORATORY | | + + + + + + | Eosinophils | 1.99 | % | [facility] | | | % | | | LABORATORY | | + + + + + + | Basophils % | 0.50 | % | [facility] | | | | | | LABORATORY | | + + + + + + | Neutrophils | 6.29 | 1.90 - 7.40 | [facility] | | | , Absolute | | K/uL | LABORATORY | | + + + + + + | Absolute | 0.90 (L) | 1.00 - 3.90 | [facility] | | | Lymphocytes | | K/uL | LABORATORY | | + + + + + + | Absolute | 0.75 | 0.00 - 0.80 | [facility] | | | Monocytes | | K/uL | LABORATORY | | + + + + + + | Eosinophils | 0.16 | 0.00 - 0.50 | [facility] | | | , Absolute | | K/uL | LABORATORY | | + + + + + + | Basophils, | 0.04Comment: Testing | 0.00 - 0.10 | [facility] | | | Absolute | performed at [facility], [address] | K/uL | LABORATORY | | | | [address], | | | | | | [place] [address] | | | | + + + + + + + + | Specimen | + + | Blood | + + + + + + + | Performing | Address | City/State/Zipcode | Phone Number | | Organization | | | | + + + + + | [facility] | [address] | [place] [address] | [phone] | + + + + + Comprehensive Metabolic Panel (08/30/2019 4:29 AM [facility])Only the most recent of 2 results wi thin the time period is included. + + + + + + | Component | Value | Ref Range | Performed | Pathologist | | | | | At | Signature | + + + + + + | Na | 140 | 135 - 145 | [facility] | | | | | mmol/L | LABORATORY | | + + + + + + | K | 3.9 | 3.5 - 4.9 | [facility] | | | | | mmol/L | LABORATORY | | + + + + + + | Cl | 109 | 99 - 109 mmol/L | [facility] | | | | | | LABORATORY | | + + + + + + | CO2 | 24 | 23 - 32 mmol/L | [facility] | | | | | | LABORATORY | | + + + + + + | Anion Gap | 11 | 5 - 20 mmol/L | [facility] | | | | | | LABORATORY | | + + + + + + | Glucose | 75 | 65 - 99 mg/dL | [facility] | | | | | | LABORATORY | | + + + + + + | BUN | 15 | 8 - 25 mg/dL | [facility] | | | | | | LABORATORY | | + + + + + + | Creatinine | 0.6 (L) | 0.70 - 1.30 | [facility] | | | | | mg/dL | LABORATORY | | + + + + + + | BUN/Creatin | 25 | | [facility] | | | ine Ratio | | | LABORATORY | | + + + + + + | Calcium | 7.8 (L) | 8.5 - 10.5 | [facility] | | | | | mg/dL | LABORATORY | | + + + + + + | Protein, | 5.1 (L) | 6.3 - 8.2 g/dL | [facility] | | | Total | | | LABORATORY | | + + + + + + | Albumin | 2.0 (L) | 3.3 - 4.8 g/dL | [facility] | | | | | | LABORATORY | | + + + + + + | Globulin | 3.1 | 1.3 - 4.9 g/dL | [facility] | | | | | | LABORATORY | | + + + + + + | A/G Ratio | 0.6 (L) | 1.0 - 2.4 | [facility] | | | | | | LABORATORY | | + + + + + + | BILIRUBIN, | 0.5 | 0.1 - 1.5 mg/dL | [facility] | | | TOTAL | | | LABORATORY | | + + + + + + | ALK PHOS | 78 | 35 - 115 U/L | [facility] | | | | | | LABORATORY | | + + + + + + | AST | 17 | 10 - 45 U/L | [facility] | | | | | | LABORATORY | | + + + + + + | ALT | 20 | 10 - 65 U/L | [facility] | | | | | | LABORATORY | | + + + + + + | Estimated | >60Comment: GFR <60: | >60 | [facility] | | | GFR | CHRONIC KIDNEY DISEASE, | mL/min/1.73m2 | LABORATORY | | | | IF FOUND OVER A 3 MONTH | | | | | | PERIOD.GFR <15: KIDNEY | | | | | | FAILURE.FOR | | | | | | AMERICANS, MULTIPLY THE | | | | | | CALCULATED GFR BY | | | | | | 1.210.This eGFR is | | | | | | calculated using the | | | | | | MDRD IDMS traceable | | | | | | equation.Testing | | | | | | performed at [facility], [address] | | | | | [facility], | | | | | | [place] [address] | | | | + + + + + + + + | Specimen | + + | Blood | + + + + + + + | Performing | Address | City/State/Zipcode | Phone Number | | Organization | | | | + + + + + | [facility] | [address] | [place] [address] | [phone] | + + + + + Phosphorus (08/29/2019 4:53 AM PST)Only the most recent of 3 results within the time perio d is included. + + + + + + | Component | Value | Ref Range | Performed | Pathologist | | | | | At | Signature | + + + + + + | Phosphorus | 3.0Comment: Testing | 2.3 - 4.8 mg/dL | [facility] | | | | performed at [facility];[address] LAB[address]AT[address] | | [address];[place], [place] | | | | | | [address] | | | | + + + + + + + + | Specimen | + + | Blood | + + + + + + + | Performing | Address | City/State/Zipcode | Phone Number | | Organization | | | | + + + + + | [facility] | [address] | [place] [address] | [phone] | + + + + + Magnesium (08/29/2019 4:53 AM PST)Only the most recent of 3 results within the time period is included. + + + + + + | Component | Value | Ref Range | Performed | Pathologist | | | | | At | Signature | + + + + + + | Magnesium | 1.7Comment: Testing | 1.7 - 2.4 mg/dL | [facility] | | | | performed at [facility];[address] | | LABORATORY | | | | [address];[place], [place] | | | | | | [address] | | | | + + + + + + + + | Specimen | + + | Blood | + + + + + + + | Performing | Address | City/State/Zipcode | Phone Number | | Organization | | | | + + + + + | [facility] | [address] | [place] [address] | [phone] | + + + + + Basic Metabolic Panel (08/29/2019 4:53 AM PST)Only the most recent of 4 results within the time period is included. + + + + + + | Component | Value | Ref Range | Performed | Pathologist | | | | | At | Signature | + + + + + + | Na | 144 | 135 - 145 | [facility] | | | | | mmol/L | LABORATORY | | + + + + + + | K | 4.3 | 3.5 - 4.9 | [facility] | | | | | mmol/L | LABORATORY | | + + + + + + | Cl | 109 | 99 - 109 mmol/L | [facility] | | | | | | LABORATORY | | + + + + + + | CO2 | 27 | 23 - 32 mmol/L | [facility] | | | | | | LABORATORY | | + + + + + + | Anion Gap | 12 | 5 - 20 mmol/L | [facility] | | | | | | LABORATORY | | + + + + + + | Glucose | 83 | 65 - 99 mg/dL | [facility] | | | | | | LABORATORY | | + + + + + + | BUN | 17 | 8 - 25 mg/dL | [facility] | | | | | | LABORATORY | | + + + + + + | Creatinine | 0.71 | 0.70 - 1.30 | [facility] | | | | | mg/dL | LABORATORY | | + + + + + + | BUN/Creatin | 24 | | [facility] | | | ine Ratio | | | LABORATORY | | + + + + + + | Calcium | 8.0 (L) | 8.5 - 10.5 | [facility] | | | | | mg/dL | LABORATORY | | + + + + + + | Estimated | >60Comment: GFR <60: | >60 | [facility] | | | GFR | CHRONIC KIDNEY DISEASE, | mL/min/1.73m2 | LABORATORY | | | | IF FOUND OVER A 3 MONTH | | | | | | PERIOD.GFR <15: KIDNEY | | | | | | FAILURE.FOR | | | | | | AMERICANS, MULTIPLY THE | | | | | | CALCULATED GFR BY | | | | | | 1.210.This eGFR is | | | | | | calculated using the | | | | | | MDRD IDMS traceable | | | | | | equation.Testing | | | | | | performed at [facility];[address] | | | | | | [address];[place] | | | | | | [address] | | | | + + + + + + + + | Specimen | + + | Blood | + + + + + + + | Performing | Address | City/State/Zipcode | Phone Number | | Organization | | | | + + + + + | [facility] | [address] | [place] [address] | [phone] | + + + + + POC Glucose (08/28/2019 4:41 PM PST)Only the most recent of 8 results within the time jeremy od is included. + + + + + + | Component | Value | Ref Range | Performed | Pathologist | | | | | At | Signature | + + + + + + | Glucose, | 103 (H)Comment: Testing | 65 - 99 mg/dL | [facility] | | | POC | performed at [facility];[address] | | LABORATORY | | | | [address];[place], [place] | | | | | | [address] | | | | + + + + + + + + | Specimen | + + | | + + + + + + + | Performing | Address | City/State/Zipcode | Phone Number | | Organization | | | | + + + + + | [facility] | [address] | [place] [address] | [phone] | + + + + + Surgical Pathology Exam (08/26/2019 12:14 PM PST) + + | Specimen | + + | Tissue - Peritoneum, | | Abdominal | + + | Soft tissue sample | | (specimen) - | | Specimen from | | omentum (specimen) | + + | Soft tissue sample | | (specimen) - Rectal | | swab (specimen) | + + + + + | Narrative | Performed At | + + + | THIS IS | [facility] | | AN ADDENDUM REPORT SPECIMEN(S): A PERITONEUM, ABDOMINAL | [facility] | | BIOPSYSPECIMEN(S): B OMENTAL BIOPSYSPECIMEN(S): C RECTAL SIGMOID | | | BIOPSY SPECIMEN SOURCE:A. PERITONEUM, ABDOMINAL BIOPSYB. OMENTAL | | | BIOPSYC. RECTAL SIGMOID BIOPSY CLINICAL HISTORY:D49.0 (colorectal | | | tumor), K62.4 (rectal obstruction). FINAL PATHOLOGIC DIAGNOSIS:A. 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 B. 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 C. 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 COMMENT:Histologic | | | sections of the peritoneum and omentum show similar morphologic | | | findings as the rectosigmoid biopsy. These findings are consistent | | | with the previously reported invasive colonicadenocarcinoma of the | | | rectum (see [id number]). As part of [facility]' Quality | | | Improvement Program, this case was reviewed by another member of our | | | pathology staff. DDF:AMB:emb:C1NR MICROSCOPIC EXAMINATION:Histologic | | | sections of all submitted blocks are examined by light microscopy. | | | These findings, together with the gross examination, support the | | | pathologic diagnosis. GROSS DESCRIPTION:Three specimens are received | | | in three containers, labeled "FC." A. The specimen, labeled "FC, | | | abdominal peritoneum biopsy," is received in formalin and consists of | | | three brown-yellow portions of adipose tissue that are covered by a | | | shiny membranous surface. Thetissue fragments range from 1.3 cm to | | | 4.2 x 2.4 x 0.6 cm. Throughout the specimen there are multiple | | | barker-white nodules ranging from 0.2-0.4 cm in greatest dimension. The | | | remainder of the cut surfaceis barker-yellow and lobulated. | | | Blanket Washer sections are submitted in cassette (A1). B. The | | | specimen, labeled "FC, omental biopsy," is received in formalin and | | | consists of a 3.2 by 3.1 by 1.1 cm aggregate of barker-yellow, lobulated | | | and slightly fragmented portions of tissue. The cutsurface reveals | | | multiple barker-white nodules ranging from 0.7-0.9 cm in greatest | | | dimension. The remainder of the cut surface is barker-yellow and | | | lobulated. Blanket Washer sections are submitted incassette (B1). | | | C. The specimen, labeled "FC, rectosigmoid biopsy," is received in | | | formalin and consists of six, 0.1-0.4 cm barker-white tissue fragments. | | | Specimen is entirely submitted in cassette (C1).AM (under the direct | | | supervision of a pathologist) The Gross Description was prepared using | | | a voice recognition system. The report was reviewed for accuracy; | | | however, sound-alike word errors, addition and/or deletions may occur. | | | If there is anyquestion about this report, please contact Client | | | Services. PERFORMING LABORATORY:The technical component was performed | | | by [facility], [address] [place] [id number] (Medical | | | Director: Yenny Young MD; CLIA# [id number]). [facility] | | | [facility] | | | [address] [address] (Medical | | | Director: Kenyon Delacruz M.D.; CLIA#: [id number]). 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 COMMENTS: The dMMR status defines | | | colorectal adenocarcinomas arising in the context of Mejia Syndrome as | | | well as a subset of sporadic colorectal adenocarcinomas. D-MMR status | | | in sporadic colorectaladenocarcinomas appears to define a subset of | | | patients with improved clinical outcome and differential response to | | | fluorouracil based chemotherapy. Antibodies to | | | Clone ResultMLH1 | | | ESO5 No loss of expressionPMS2 | | | EP51 No loss of expressionMSH6 | | | EP49 No loss of expressionMSH2 | | | FE11 No loss of expression The tumor | | | cells show intact protein expression of MLH1, MSH2, MSH6, and PMS2, | | | suggesting that these DNA mismatch repair enzymes are functional. | | | However, the rare possibility of functionally defectivebut | | | immunologically intact enzymes cannot be excluded. If there is a high | | | clinical suspicion for hereditary nonpolyposis colorectal carcinoma | | | syndrome in this patient, please consider additionaltesting for | | | microsatellite instability. Please contact the pathology department if | | | such testing is desired. The immunohistochemical staining (slide | | | preparation) was performed at [facility]. | | | Interpretation was performed at [facility]. | | | Immunohistochemical studies and/or special stains were performed on | | | this case with the appropriate controls, which stain appropriately. | | | These tests were developed and their performance characteristics | | | determined by [facility] and/or [facility]. These tests | | | may have not been cleared or approved by the U.S. Food and Drug | | | Administration. The FDA has determined that suchclearance or | | | approval is not necessary. [facility] and [facility] are certified | | | under the Clinical Laboratory Improvement Amendment Act of 1988 | | | (CLIA) as qualified to perform high complexityclinical laboratory | | | testing. BES REASON FOR ADDENDUM:Result of EGFR analysis The tumor | | | cells are strongly positive for EGFR by immunohistochemistry. The | | | control tissue stains appropriately. ADDITIONAL NOTES:The BRAF and | | | KRAS mutation analysis tests are qualitative real-time PCR assays | | | based on two processes: (1) genomic DNA extraction from | | | formalin-fixed, paraffin-embedded tissue (FFPET) with | | | minimumneoplastic cell content of 10%; (2) PCR amplification and | | | detection of target DNA. The BRAF V600 Mutation Test is designed to | | | detect V600E ([id number]). Some non-V600E mutations, V600K, V600D, and | | | V600E2,may be detected by the assay. The KRAS Mutation Test is | | | designed to detect mutations in exons 2, 3 and 4 of the KRAS gene. The | | | following mutations can be detected by the KRAS test:KRAS codons | | | 12/13 in Exon 2 (p.G12A (c.35G>C), p.G12D (c.35G>A), p.G12R (c.34G>C), | | | p.G12V (c.35G>T), p.G13D (c.38G>A))KRAS codon 12 in Exon 2 (p.G12C | | | (c.34G>T), p.G12S (c.34G>A))KRAS codons 59/61 in Exon 3 (p.Q61H | | | (c.183A>T), p.Q61H (c.183A>C), p.Q61L (c.182A>T), p.Q61R (c.182A>G), | | | p.A59E (c.176C>A), p.A59G (c.176C>G), p.A59T(c.175G>A)) KRAS codons | | | 117/146 in Exon 4 (p.K117N (c.351A>C), p.K117N (c.351A>T), p.K117R | | | (c.350A>G), p.K117E (c.349A>G), p.A146T (c.436G>A), p.A146P | | | (c.436G>C), p.A146V(c.437C>T)) Performance characteristics of the KRAS | | | mutation analysis test and non-melanoma samples for the BRAF mutation | | | analysis test have been determined by [facility], [address] | | [address] [place], [place],but have not been cleared or approved by the [place] | | | Food and Drug Administration (FDA). The FDA has determined that such | | | clearance or approval is not necessary. This laboratory is certified | | | under theClinical Laboratory Improvement Amendments (CLIA) as | | | qualified to perform high complexity clinical laboratory testing. | | | These tests are used for clinical purposes and should not be regarded | | | asinvestigational or for research.Tumor samples are non-homogenous and | | | data from a sample of tumor may not be concordant with data from | | | other sections of the same tumor. Tumor sample may also contain | | | non-tumor tissue, and DNA from these areas would not be expected to | | | contain a mutation. In instances where the frequency of a target | | | mutation is very low with respect to the wild-type background (<5%), | | | the assays may fail to detecta mutation. PERFORMING LABORATORY:The | | | technical and professional components of the BRAF and KRAS mutation | | | analysis tests were performed at [facility], [facility] [address] | | | [place] [address] (Injection Mold Tooling Technician: Gaudencio Lira MD; CLIA# | | | [id number]). REASON FOR ADDENDUM:This case is addended for the | | | addition of BRAF and KRAS Mutation Analysis results. ADDENDUM | | | PATHOLOGIC DIAGNOSIS:[id number], [id number] BIOPSY: Mutation DETECTED | | | - See table and comments. BRAF | | | | | | V600: Not DetectedKRAS | | | | | | Exon 2 (codons 12/13): DETECTEDKRAS | | | | | | Exon 2 (codon 12): Not DetectedKRAS | | | | | | Exon 3 (codons 59/61): Not DetectedKRAS | | | | | | Exon 4 (codon 117): Not DetectedKRAS | | | | | | Exon 4 (codon 146): Not Detected*See Additional Notes for specific | | | mutations detected by the assays. ADDENDUM COMMENTS:A KRAS mutation | | | was DETECTED in this patient's specimen. BRAF and KRAS mutations are | | | found in a wide variety of solid tumors. In controlled clinical | | | trials, metastatic colorectal carcinoma with anabsence of a BRAF | | | mutation is likely to respond to anti-receptor tyrosine kinase | | | antibody therapy (1). Patients with a known KRAS mutation may have a | | | reduced response to anti-EGFR monoclonal antibodies and EGFR TKI | | | therapies (2,3,4). These assays are not intended to diagnose any | | | particular type of cancer, but are intended to be used by clinicians | | | as an adjunct to other predictive factorsto select eligible patients | | | for available therapies.1. Mary Saravia et al. Wild-type BRAF is | | | required for response to panitumumab or cetuximab in metastatic | | | colorectal cancer. J Clin Oncol 2008; 26(35): 7786-6703. doi: | | | 10.1200/JCO.2008.18.10888. Arnel IG, Alexis M, Kilo M, et al. | | | Wild-type KRAS is required for panitunumab efficacy in patients with | | | metastatic colorectal cancer. J Clin Oncol 2008; 26:9451-3291. | | | doi:10.1200/JCO.2007.14.05199. Gilda PATTON, Cheli MENDOZA, Ean A, et | | | al. Extended TAO mutations and anti-EGFR monoclonal antibody survival | | | benefit in metastatic colorectal cancer: a meta-analysis of | | | randomized, controlled trials.Annals of Oncol 2014; 26(1): 13-21. doi: | | | 10.1093/annonc/pvd122 4. Navi PJ, Melissa RODRIGUEZ. KRAS | | | Mutation: Should We Test for It, and Does It Matter? J Clin Oncol | | | 2013; 31:3509-9152. doi: 10.1200/JCO.2012.43.0454 ADDENDUM CLINICAL | | | HISTORY:Client Request: BRAF and KRAS Mutation Analysis requested by | | | Paras Oliva MD ADDENDUM MICROSCOPIC EXAMINATION:An HE slide | | | for each case is reviewed by a board certified pathologist to confirm | | | the cells of interest are present in adequate numbers to proceed with | | | testing and to identify areas formacrodissection. If the cells are | | | not present in adequate numbers, testing is not performed. ADDENDUM | | | GROSS DESCRIPTION:DNA was extracted from 3 unstained slides from | | | paraffin tissue block B1, numbered [id number], belonging to patient | | | ARLENE ROJAS. Diagnostician: Nicanor Elias | | | DOPathologistDiagnostician: Kenyon Delacruz | | | MDPathologistDiagnostician: Prieto Brito MT([facility]) | | | MBPathologistDiagnostician: Demi Bearden MD | | | PhDPathologistElectronically Signed 09/26/2019 | | + + + + +---------+ + + | Performing | Address | City/State/Zipcode | Phone Number | | Organization | | | | + +---------+ + + | [facility] | | | | | [facility] | | | | + +---------+ + + STORED IMAGE GENERAL SURGERY (08/26/2019 12:03 PM PST) + + | Specimen | + + | | + + + + + | Narrative | Performed At | + + + | This Point of Care (POC) ultrasound image has been reviewed and | [facility] | | interpreted by the Physician identified as the ordering Physician in | | | the associated interpretation and report. | | + + + + +---------+ + + | Performing | Address | City/State/Zipcode | Phone Number | | Organization | | | | + +---------+ + + | [facility] | | | | + +---------+ + + NG/OG (08/26/2019 11:53 AM PST) + + + | Narrative | Performed At | + + + | Judson Mcmullen CRNA 08/26/2019 12:12 PM | | | naso/orogastric Placement Note 08/26/2019 11:40 AM Indication: | | | gastric decompression Tube type: Orogastric Size: 18 Fr Location: | | | mouth Pain prevention: general anesthesia Destination: stomach Tube | | | position checked by: auscultation Suction: intermittent suction | | | Placed by: Judson Mcmullen CRNA Authorizing provider: Judson | | | Mesfin Mcmullen CRNA Please see intraoperative grid for any | | | additional medication documentation. | | + + + Airway (08/26/2019 11:52 AM PST) + + + | Narrative | Performed At | + + + | Judson Mcmullen CRNA 08/26/2019 11:53 AM Anesthesia | | | Airway Placement 08/26/2019 11:33 AM Preprocedure check: patient | | | identified, airway assessed, oxygen, airway equipment checked, | | | suction and patient reassessment prior to induction Rapid Sequence | | | Induction: no Mask ventilation: easy Successful technique: Schilling | | | Laryngoscope blade size: 2 Airway grade: 1 (Full view of glottis) | | | Attempts: 1 Airway type: endotracheal Size: 7.5 Cuffed: cuffed | | | Route, reference point: right side of mouth Tube depth: 21 cm Tube | | | secured with: adhesive tape Trauma: none Tube placement | | | verification: bilateral chest rise, equal bilateral breath sounds | | | and carbon dioxide detection Performing provider: Judson Toure | | | DEANNA Mcmullen Authorizing provider: Judson Mcmullen CRNA | | | Please see intraoperative grid for any additional medication | | | documentation. | | + + + ECG 12 lead (08/26/2019 7:41 AM PST) + + + + + + | Component | Value | Ref Range | Performed | Pathologist | | | | | At | Signature | + + + + + + | VENTRICULAR | 78 | BPM | [facility] | | | RATE EKG | | | | | + + + + + + | ATRIAL RATE | 78 | BPM | [facility] | | + + + + + + | P-R | 118 | ms | [facility] | | | INTERVAL | | | | | + + + + + + | QRS | 64 | ms | [facility] | | | DURATION | | | | | + + + + + + | Q-T | 370 | ms | [facility] | | | INTERVAL | | | | | + + + + + + | Q-T | 421 | ms | [facility] | | | INTERVAL | | | | | | (CORRECTED) | | | | | + + + + + + | P WAVE AXIS | 58 | degrees | [facility] | | + + + + + + | QRS AXIS | -4 | degrees | [facility] | | + + + + + + | T AXIS | 0 | degrees | [facility] | | + + + + + + | INTERPRETAT | Sinus rhythm with | | [facility] | | | ION TEXT | Premature atrial | | | | | | complexesLow voltage | | | | | | QRSBorderline ECGWhen | | | | | | compared with ECG of | | | | | | 11-MAY-2019 | | | | | | 10:30,Premature atrial | | | | | | complexes are now | | | | | | PresentConfirmed by | | | | | | FABI IVY MD ([id number]) | | | | | | on 08/26/2019 1:05:27 PM | | | | | | | | | | + + + + + + + + | Specimen | + + | | + + + + + | Narrative | Performed At | + + + | | | + + + + +---------+ + + | Performing | Address | City/State/Zipcode | Phone Number | | Organization | | | | + +---------+ + + | [facility] | | | | + +---------+ + + XR Chest 1 Vw (08/26/2019 5:27 AM PST) + + | Specimen | + + | | + + + + + | Impressions | Performed At | + + + | 1. Mild diffuse interstitial opacity suggesting mild interstitial | [facility] | | edema with more prominent opacity right lung base which may suggest a | | | combination of edema or atelectasis. 2. Question tiny right pleural | | | effusion. Signed by: Celine Watson, Linda Sign Date/Time: | | | 08/26/2019 6:35 AM | | + + + + + + | Narrative | Performed At | + + + | CHEST ONE VIEW CLINICAL INFORMATION: Pre operative. | [facility] | | COMPARISON: None. FINDINGS: Cardiomediastinal contours are | | | within normal limits. Mild diffuse interstitial prominence more | | | marked along the lung bases and on the right side. Question tiny | | | right pleural effusion. No large effusion. No visible pneumothorax. | | | No acute bony abnormalities. | | + + + + + | Procedure Note | + + | Evens, Rad Results In - 08/26/2019 6:38 AM PST | | CHEST ONE VIEW | | | | CLINICAL INFORMATION: | | Pre operative. | | | | COMPARISON: | | None. | | | | FINDINGS: | | Cardiomediastinal contours are within normal limits. Mild diffuse | | interstitial prominence more marked along the lung bases and on the | | right side. Question tiny right pleural effusion. No large effusion. | | No visible pneumothorax. No acute bony abnormalities. | | | | IMPRESSION: | | 1. Mild diffuse interstitial opacity suggesting mild interstitial edema | | with more prominent opacity right lung base which may suggest a | | combination of edema or atelectasis. | | 2. Question tiny right pleural effusion. | | | | | | | | | | Signed by: Celine Watson Sadaf | | Sign Date/Time: 08/26/2019 6:35 AM | + + + +---------+ + + | Performing | Address | City/State/Zipcode | Phone Number | | Organization | | | | + +---------+ + + | [facility] | | | | + +---------+ + + Type and Screen (08/26/2019 4:30 AM PST) + + + + + + | Component | Value | Ref Range | Performed | Pathologist | | | | | At | Signature | + + + + + + | ABO Rh | O POSITIVE | | [facility] | | | | | | LABORATORY | | + + + + + + | Antibody | NEGATIVE | | [facility] | | | Screen | | | LABORATORY | | + + + + + + | BB BAND | [address] | | [facility] | | | | | | LABORATORY | | + + + + + + | BB BAND | Testing performed at | | [facility] | | | | [facility];[address] | | LABORATORY | | | | [address];[place] [address] | | | | + + + + + + + + | Specimen | + + | Blood | + + + + + + + | Performing | Address | City/State/Zipcode | Phone Number | | Organization | | | | + + + + + | [facility] | [address] | [place] [address] | [phone] | + + + + + Iron and Iron Binding Capacity (08/26/2019 4:25 AM PST) + + + + + + | Component | Value | Ref Range | Performed | Pathologist | | | | | At | Signature | + + + + + + | Iron | 9 (L) | 45 - 190 ug/dL | [facility] | | | | | | LABORATORY | | + + + + + + | Iron | 130 (L) | 250 - 450 ug/dL | [facility] | | | Binding | | | LABORATORY | | | Capacity | | | | | + + + + + + | Iron | 7 (L)Comment: Testing | 20 - 50 % | [facility] | | | Saturation | performed at [facility], [address] | | LABORATORY | | | | [place], | | | | | | [place] [address] | | | | + + + + + + + + | Specimen | + + | Blood | + + + + + + + | Performing | Address | City/State/Zipcode | Phone Number | | Organization | | | | + + + + + | [facility] | [address] | [place] [address] | [phone] | + + + + + Protime INR (08/26/2019 4:25 AM PST) + + + + + + | Component | Value | Ref Range | Performed | Pathologist | | | | | At | Signature | + + + + + + | INR | 1.1Comment: REFERENCE | | [facility] | | | | RANGE:0.9 - 1.2 | | LABORATORY | | | | NON-ANTICOAGULATED2.0 | | | | | | - 3.0 ALL OTHER | | | | | | THERAPEUTIC | | | | | | INDICATIONS2.5 - 3.5 | | | | | | MECHANICAL HEART VALVES, | | | | | | RECURRENT OR SYSTEMIC | | | | | | EMBOLISMTesting | | | | | | performed at [facility] | | | | | | [address];[place], [place] | | | | | | [address] | | | | + + + + + + + + | Specimen | + + | Blood | + + + + + + + | Performing | Address | City/State/Zipcode | Phone Number | | Organization | | | | + + + + + | [facility] | [address] | [place] [address] | [phone] | + + + + + CBC no Differential (08/26/2019 4:25 AM PST) + + + + + + | Component | Value | Ref Range | Performed | Pathologist | | | | | At | Signature | + + + + + + | WBC | 7.36 | 3.80 - 11.00 | [facility] | | | | | K/uL | LABORATORY | | + + + + + + | RBC | 3.56 (L) | 4.20 - 5.70 | [facility] | | | | | M/uL | LABORATORY | | + + + + + + | Hemoglobin | 11.4 (L) | 13.2 - 17.0 | [facility] | | | | | g/dL | LABORATORY | | + + + + + + | Hematocrit | 32.7 (L) | 39.0 - 50.0 % | [facility] | | | | | | LABORATORY | | + + + + + + | MCV | 91.8 | 80.0 - 100.0 fl | [facility] | | | | | | LABORATORY | | + + + + + + | MCH | 32.0 | 27.0 - 34.0 pg | [facility] | | | | | | LABORATORY | | + + + + + + | MCHC | 34.8 | 32.0 - 35.5 | [facility] | | | | | g/dL | LABORATORY | | + + + + + + | RDW-SD | 44.6 | 37 - 53 fl | [facility] | | | | | | LABORATORY | | + + + + + + | Platelet | 226 | 150 - 400 K/uL | [facility] | | | Count | | | LABORATORY | | + + + + + + | MPV | 8.8Comment: Testing | fl | [facility] | | | | performed at [facility], [address] | | LABORATORY | | | | [place] [address], | | | | | | [place] [address] | | | | + + + + + + + + | Specimen | + + | Blood | + + + + + + + | Performing | Address | City/State/Zipcode | Phone Number | | Organization | | | | + + + + + | [facility] | [address] | [place] [address] | [phone] | + + + + + Ferritin (08/26/2019 4:25 AM PST) + + + + + + | Component | Value | Ref Range | Performed | Pathologist | | | | | At | Signature | + + + + + + | Ferritin | 144Comment: Testing | 11 - 450 ng/mL | [facility] | | | | performed at [facility], [address] | | LABORATORY | | | | [place], | | | | | | [place] [address] | | | | + + + + + + + + | Specimen | + + | Blood | + + + + + + + | Performing | Address | City/State/Zipcode | Phone Number | | Organization | | | | + + + + + | [facility] | [address] | [place] [address] | [phone] | + + + + + Urinalysis With Microscopic (08/25/2019 6:39 PM PST) + + + + + + | Component | Value | Ref Range | Performed | Pathologist | | | | | At | Signature | + + + + + + | Color, UA | STRAW | | [facility] | | | | | | LABORATORY | | + + + + + + | Clarity, UA | CLEAR | | [facility] | | | | | | LABORATORY | | + + + + + + | Specific | 1.003 | 1.002 - 1.030 | [facility] | | | [place], | | | LABORATORY | | | Urine | | | | | + + + + + + | Leukocyte | NEGATIVE | NEG | [facility] | | | esterase, | | | LABORATORY | | | UA | | | | | + + + + + + | Nitrite, UA | NEGATIVE | NEG | [facility] | | | | | | LABORATORY | | + + + + + + | Urobilinoge | NORMAL | <1.6 mg/dL | [facility] | | | n, Ur | | | LABORATORY | | + + + + + + | Protein, | NEGATIVE | NEG mg/dL | [facility] | | | Urine | | | LABORATORY | | | (mg/dL) | | | | | + + + + + + | pH, Urine | 7.0 | 5.0 - 8.0 | [facility] | | | | | | LABORATORY | | + + + + + + | Blood, UA | NEGATIVE | NEG | [facility] | | | | | | LABORATORY | | + + + + + + | Ketones, UA | TRACE (A) | NEG mg/dL | [facility] | | | | | | LABORATORY | | + + + + + + | Bilirubin, | NEGATIVE | NEG | [facility] | | | UA | | | LABORATORY | | + + + + + + | Glucose, Ur | NEGATIVE | NEG mg/dL | [facility] | | | | | | LABORATORY | | + + + + + + | WBC UA | 0-2 | 0 - 5 /hpf | [facility] | | | | | | LABORATORY | | + + + + + + | RBC UA | 0-2 | 0 - 2 /hpf | [facility] | | | | | | LABORATORY | | + + + + + + | SQUAMOUS | 3-5 | /lpf | [facility] | | | EPITHELIAL | | | LABORATORY | | | UA | | | | | + + + + + + | BACTERIA UA | NONE SEENComment: | NONE | [facility] | | | | Testing performed at | | LABORATORY | | | | [facility];[address];[place] [address] | | | | + + + + + + + + | Specimen | + + | Urine - Urine | | specimen obtained by | | clean catch | | procedure (specimen) | + + + + + + + | Performing | Address | City/State/Zipcode | Phone Number | | Organization | | | | + + + + + | [facility] | [address] | [place] [address] | [phone] | + + + + + PATHOLOGY - EXTERNAL SCAN [...] unspecified provider. | | + + + from Last 3 Months Insurance + +--------+ +--------+ +---------+--------+ | Payer | Benefi | Subscriber | Effect | Phone | Address | Type | | | t Plan | ID | bree | | | | | | / | | Dates | | | | | | Group | | | | | | + +--------+ +--------+ +---------+--------+ | MEDICARE | MEDICA | [id number] | 04/03/20 | [phone] | | Medica | | | RE | | 14-Pre | 5 | | re | | | PART A | | sent | | | | | | AND B | | | | | | + +--------+ +--------+ +---------+--------+ | REPLACED BY [facility] | IHS | [id number] | | | | Indemn | | SERVICE | YELLOW | | 019-Pr | | | ity | | | HAWK | | esent | | | | + +--------+ +--------+ +---------+--------+ | REPLACED BY [facility] | IHS | [id number] | 10/04/19 | | | Indemn | | SERVICE | YELLOW | | 19-Pre | | | ity | | | HAWK | | sent | | | | + +--------+ +--------+ +---------+--------+ | MEDICARE | MEDICA | [id number] | 04/03/20 | [phone] | | Medica | | | RE | | 14-Pre | 5 | | re | | | PART A | | sent | | | | | | AND B | | | | | | + +--------+ +--------+ +---------+--------+ + +--------+ +--------+ + + | Guarantor Name | Accoun | Relation to | Date | Phone | Billing Address | | | t Type | Patient | of | | | | | | | | | | + +--------+ +--------+ + + | Arlene Rojas | Person | Self [birth year] | [address] | | | al/Fam | | 1941 | [phone] | [place] [address] | | | tunde | | | 9 (Home) | | + +--------+ +--------+ + + | Arlene Rojas | Person | Self | [birth year] | | [address] | | | al/Fam | | 1941 | [phone] | [place] [address] | | | tunde | | | 9 (Home) | | + +--------+ +--------+ + + Advance Directives + + + + + | Type | Date Recorded | Patient | Explanation | | | | 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
--- OUTSIDE RECORDS SUMMARY | ~2019-10-15 | XMS | Encounter Summary ---
Demographics + + + | Address | [address] | | | [place] [address] | + + + | Home Phone | | + + + | Preferred Language | Unknown | + + + | Marital Status | | + + + | Voodoo Affiliation | Unknown | + + + | Race | Unknown | + + + | Ethnic Group | Unknown | + + + Author + + + | Author | [facility] | | | and [place] | + + + | Organization | [facility] | | | and [...] Team Providers + +------+ + | Care Deodorizer Operator Name | Role | Phone | + +------+ + | Lizette MartinezP | PCP | | + +------+ + Reason for Referral Evaluate & Treat (Routine) + + + + + + + | Status | Reason | Specialty | Diagnoses / | Referred By | Referred To | | | | | Procedures | Contact | Contact | + + + + + + + | Authorized | Specialty | Wound Care | Diagnoses | Jair, | Mariana Hplx Op | | | Services | | | Sree, | Wound Care | | | Required | | Adenocarcino | SHELL TRIM TOOL SETTER [address] | [address] | | | | | ma of | [address] | [place], | | | | | rectosigmoid | [address] | [place] [address] | | | | | junction | [place], [place] | Phone: | | | | | ([facility]) | [address] | [phone] | | | | | | Phone: | Fax: | | | | | | [phone] | [phone] | | | | | | Fax: | | | | | | | [phone] | | + + + + + + + Reason for Visit Evaluate & Treat (Urgent) + +--------+ + + + + | Status | Reason | Specialty | Diagnoses / | Referred By | Referred To | | | | | Procedures | Contact | Contact | + +--------+ + + + + | Pending | | Colon and | Diagnoses | Tahir | [facility] | | Review | | Rectal | Colon mass | Emeterio Godfrey, | Surgery [address] | | | | Surgery / | | [address] | | | | General | | Charlee Santamaria | [address] | | | | Surgery | | [place], | [place], [place] | | | | | | [place] | [address] | | | | | | [address] | Phone: | | | | | | Phone: | [phone] | | | | | | [phone] | Fax: | | | | | | Fax: | [phone] | | | | | | [phone] | | + +--------+ + + + + Encounter Details +--------+---------+ + + + | Date | Type | Department | Care Team | Description | +--------+---------+ + + + | 09/20/ | Office | [facility] | Arabellacegabby, | Adenocarcinoma of | | 2019 | Visit | GENERAL SURGERY [address] | [address] | rectosigmoid | | | | [address] | [address] | junction (HCC) | | | | [place], [place] | [place] [address] | (Primary Dx) | | | | [address] | [phone] | | | | | [phone] | | | +--------+---------+ + + + Social History + + [...] + + + + | Pulse | - | - | | + + + + + | Temperature | 36.6 C (97.9 F) | 09/20/2019 10:18 AM | | | | | PST | | + + + + + | Respiratory Rate | - | - | | + + + + + | Oxygen Saturation | - | - | | + + + + + | Inhaled Oxygen | - | - | | | Concentration | | | | + + + + + | Weight | - | - | | + + + + + | Height | - | - | | + + + + + | Body Mass Index | - | - | | + + + + + [...] + + documented as of this encounter Progress Sree Crenshaw ARNP - 09/20/2019 10:00 AM PSTFormatting of this note might be differen t from the original. Colorectal Surgery Post Operative Follow up note Kris Delgado : 1940 Surgery:laparoscopic biopsy of omentum and peritoneal cavity, diverting end loop colostomy. Flexible sigmoidoscopy and biopsy Date of Surgery:08/26/2019 DATE OF VISIT: 09/20/2019 SUBJECTIVE: HPI: Abdominal pain yes Diarrhea no Constipation no Fevers or chills no Nausea or vomiting no Blood in stool no Mild incontinence no Incisional pain no Pain improving yes Drainage no OBJECTIVE Vitals: 09/20/19 1018 BP: 114/64 Temp: 36.6 C (97.9 F) PainSc: 0 - No pain PainLoc: Abdomen Abdominal Exam Wound closed yes Wound clean yes Jack/Sutures no Hernia noted no Wound drainage no Wound erythema no Seroma noted no IMPRESSION: SP laparoscopic colostomy PLAN: 1. Follow up oncology for chemotherapy 2. Referral to ostomy clinic 3. Continue lifting restrictions for another week 4. Regular diet okay AARON Bull 10:18 AM 09/20/19 documented in th is encounter Plan of Treatment +--------+---------+ + + + | Date | Type | Specialty | Care Team | Description | +--------+---------+ + + + | 10/16/ | Office | Wound Care | Jair, | | | 2020 | Visit | | [address]ON [address] | | | | | | [facility] | | | | | | [place] [address] | | | | | | [phone] | | | | | | | | +--------+---------+ + + + + + +--------+ + + | Name | Type | Priori | Associated Diagnoses | Order Schedule | | | | ty | | | + + +--------+ + + | Ambulatory Referral | Outpatient | Routin | Adenocarcinoma of | Ordered: 09/20/2019 | | to [facility] / | Referral | e | rectosigmoid | | | Wound Care | | | junction (HCC) | | + + +--------+ + + documented as of this encounter Visit Diagnoses + + | Diagnosis | + + | 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
--- OUTSIDE RECORDS SUMMARY | ~2019-10-15 | XMS | Encounter Summary ---
Demographics + + + | Address | [address] | | | [place] [address] | + + + | Home Phone | | + + + | Preferred Language | Unknown | + + + | Marital Status | | + + + | Baptism Affiliation | Unknown | + + + | Race | Unknown | + + + | Ethnic Group | Unknown | + + + Author + + + | Author | [facility] | | | and [place] | + + + | Organization | [facility] | | | [...] Team Providers + +------+ + | Care Igniter Assembler Name | Role | Phone | + [...] + + | 08/25/ | Hospital | [facility] | Enio Lange, | Colorectal tumor | | 2019 - | Encounter | [facility] [address] | MD [address] | (Primary Dx); Rectal | | | | [address] | [place] [address] | obstruction; | | 08/30/ | | [place], [place] | [phone] | Colorectal tumor; | | 2019 | | [address] | | Rectal obstruction; | | | | [phone] | Errol Mart MD | Anemia, unspecified | | | | | [address] | type; Essential | | | | | [place] [address] | hypertension | | | | | [phone] | | | | | | | | | | | | Giuliano Villaseñor, | | | | | | [address] | | | | | | [address] | | | | | | [place] [address] | | | | | | [phone] | | | | | | | | | | | | Jasmin Barker MD | | | | | | [address] | | | | | | [place] [address] | | | | | | [phone] | | | | | | | [...] Barker MD - 08/30/2019 2:35 PM PST [facility] Service: Hospitalist Physician Discharge Summary Patient [...] for a rolling walker. He agreed for [facility] placemen t. He was accepted at [place]. Referral to a local oncologist was sent. He will follow up with surgery in 2 weeks. Past Medical History: Past Medical History: Diagnosis Date Hyperlipidemia Hypertension 2004 Tobacco abuse Past Surgical History: Procedure Laterality Date COLOSTOMY N/A 08/26/2019 Procedure: LAPAROSCOPIC COLOSTOMY CREATION; Surgeon: Phong Tyson MD; Location: [facility] [place]IN OR OTHER SURGICAL HISTORY Left 1984 ORIF ANKLE FRACTURE OTHER SURGICAL HISTORY Bilateral 2016 CATARACT EXTRACTION SIGMOIDOSCOPY N/A 08/26/2019 Procedure: SIGMOIDOSCOPY FLEXIBLE; Surgeon: Phong Tyson MD; Location: [facility] [place]IN OR Discharged Condition: Stable for discharge [...] input(s): ABG Disposition: Follow up: GRIFFIN Royal [id number] [facility] [address] Go on 09/11/2019 You have an appointment at 0930 on 09/11/2019 with Lizette MOYA [address] [phone] Phong Tyson MD [address] [place] [address] Schedule an appointment as soon as possible [...] Gonzalez RN - 08/29/2019 2:04 PM PST [facility] Service: Ostomy Care Consult Note Hospital [...] 2 weeks (until his post-op a ppointment) [facility] starter kit ordered with pt's permission # [id number] Thank you for allowing me to participate in the care of this patient. Soledad Berger RN, CWON 08/29/2019 14:04 Jasmin Herrmann MD - 08/29/2019 1:18 PM PSTFormatting of this note might be different from the or iginal. [facility] Service: Hospitalist Progress Note Hospital Day: [...] Rojas 78 y.o. 1940 Med. Record Number: [id number] Date of admission: 08/25/2019 Service(s): Colorectal Surgery [...] nursing note reviewed. Exam conducted with a rehab specialist present. Cardiovascular: Rate and Rhythm: Normal rate. [...] there is a heme/onc Dr in the [facility] (where they live). HTN BP's remain low-normal [...] BMI 28.00 kg/m Physical exam: AOx3 NAD [place] Heart RRR Lungs CTa Abd SNTND +BS Ostomy has stool output Giuliano Villaseñor DO 08/28/2019 2:50 PM Sree Smith ARN P - 08/28/2019 8:17 AM PST Colorectal Surgery Progress Note Pt. Name/Age/: Arlene Rojas 78 y.o. 1940 Med. Record Number: [id number] Date of admission: 08/25/2019 Service(s): Colorectal Surgery [...] nursing note reviewed. Exam conducted with a rehab specialist present. Cardiovascular: Rate and Rhythm: Normal rate. [...] Encourage ambulation 2. 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 Confirmed DOCUMENTATION COORDINATOR medications with patient and insurance fill history. Adjusted DOCUMENTATION COORDINATOR medications according to the copy technician note below. - removed lopermaide. Per family took one time and did not help, so patient is not taking. - last took all medications 08/21/19. - added daily multivitamin. Please Review and Order Home Medications as necessary. Thanks BRAYDEN MARION, TheresaD 08/25/2019 7:39 PM documented in t [...] [address] | | | | | | [place] [address] | | | | | | [phone] | | | | | | | [...] J?MRN: | | | | | | [id number] | | | [id number] | | | riteri | | | [...] | | | St. | | | [place] | | | y | | | [...] | | | St. | | | [place] | | | y H. | | [...] | | | St. | | | [place] | | | y H. | | [...] | | | 1-103a | | | [id number] | | | 41 | | | [...] | | | | | performed at [facility], [address] | | | | | | [facility], | | | | | | [place] [address] | | | | + + + + + + + + | Specimen | + + | Blood | + + + + + + + | Performing | Address | City/State/Zipcode | Phone Number | | Organization | | | | + + + + + | [facility] | [address] | [place] [address] | [phone] | + + + + + CBC [...] | | | Absolute | performed at [facility], [address] | K/uL | LABORATORY | | | | [address], | | | | | | [place] [address] | | | | + + + + + + + + | Specimen | + + | Blood | + + + + + + + | Performing | Address | City/State/Zipcode | Phone Number | | Organization | | | | + + + + + | [facility] | [address] | [place] [address] | [phone] | + + + + + Phosphorus (08/29/2019 4:53 AM PST) + + + + + + | Component | Value | Ref Range | Performed | Pathologist | | | | | At | Signature | + + + + + + | Phosphorus | 3.0Comment: Testing | 2.3 - 4.8 mg/dL | [facility] | | | | performed at [facility] [place];[address] | | LABORATORY | | | | [address];[place], [place] | | | | | | [address] | | | | + + + + + + + + | Specimen | + + | Blood | + + + + + + + | Performing | Address | City/State/Zipcode | Phone Number | | Organization | | | | + + + + + | [facility] | [address] | [place] [address] | [phone] | + + + + + Magnesium (08/29/2019 4:53 AM PST) + + + + + + | Component | Value | Ref Range | Performed | Pathologist | | | | | At | Signature | + + + + + + | Magnesium | 1.7Comment: Testing | 1.7 - 2.4 mg/dL | [facility] | | | | performed at [facility] [place];[facility] | | LABORATORY | | | | [facility];[place], [place] | | | | | | [address] | | | | + + + + + + + + | Specimen | + + | Blood | + + + + + + + | Performing | Address | City/State/Zipcode | Phone Number | | Organization | | | | + + + + + | [facility] | [address] | [place] [address] | [phone] | + + + + + Basic [...] | >60Comment: GFR <60: | >60 | [facility] | | | GFR | CHRONIC [...] | | | | | performed at [facility] [place];[address] | | | | | | [facility];[place], [place] | | | | | | [address] | | | | + + + + + + + + | Specimen | + + | Blood | + + + + + + + | Performing | Address | City/State/Zipcode | Phone Number | | Organization | | | | + + + + + | [facility] | [address] | [place] [address] | [phone] | + + + + + CBC [...] | | | Absolute | performed at [facility] [place];[address] | [address] | LABORATORY | | | | [address];[place], [place] | | | | | | [address] | | | | + + + + + + + + | Specimen | + + | Blood | + + + + + + + | Performing | Address | City/State/Zipcode | Phone Number | | Organization | | | | + + + + + | [facility] | [address] | [place] [address] | [phone] | + + + + + POC [...] | | | POC | performed at [facility] [place];[address] | | LABORATORY | | | | [address];[place], [place] | | | | | | [address] | | | | + + + + + + + + | Specimen | + + | | + + + + + + + | Performing | Address | City/State/Zipcode | Phone Number | | Organization | | | | + + + + + | [facility] | [address] | [place] [address] | [phone] | + + + + + POC Glucose (08/28/2019 12:11 PM PST) + + + + + + | Component | Value | Ref Range | Performed | Pathologist | | | | | At | Signature | + + + + + + | Glucose, | 101 (H)Comment: Testing | 65 - 99 mg/dL | [facility] | | | POC | performed at [facility] [place];[address] | | LABORATORY | | | | [address];[place] | | | | | | [address] | | | | + + + + + + + + | Specimen | + + | | + + + + + + + | Performing | Address | City/State/Zipcode | Phone Number | | Organization | | | | + + + + + | [facility] | [address] | [place] [address] | [phone] | + + + + + POC Glucose (08/28/2019 8:48 AM PST) + + + + + + | Component | Value | Ref Range | Performed | Pathologist | | | | | At | Signature | + + + + + + | Glucose, | 98Comment: Testing | 65 - 99 mg/dL | [facility] | | | POC | performed at [facility] [place];[address] | | LABORATORY | | | | [address];[place] | | | | | | [address] | | | | + + + + + + + + | Specimen | + + | | + + + + + + + | Performing | Address | City/State/Zipcode | Phone Number | | Organization | | | | + + + + + | [facility] | [address] | [place] [address] | [phone] | + + + + + Phosphorus (08/28/2019 4:18 AM PST) + + + + + + | Component | Value | Ref Range | Performed | Pathologist | | | | | At | Signature | + + + + + + | Phosphorus | 2.1 (L)Comment: Testing | 2.3 - 4.8 mg/dL | [facility] | | | | performed at [facility], [address] | | LABORATORY | | | | [address], | | | | | | [place] [address] | | | | + + + + + + + + | Specimen | + + | Blood | + + + + + + + | Performing | Address | City/State/Zipcode | Phone Number | | Organization | | | | + + + + + | [facility] | [address] | [place] [address] | [phone] | + + + + + Magnesium [...] | | | | | [place] [address] | | | | + + + + + + + + | Specimen | + + | Blood | + + + + + + + | Performing | Address | City/State/Zipcode | Phone Number | | Organization | | | | + + + + + | [facility] | [address] | [place] [address] | [phone] | + + + + + Basic [...] | | | | | performed at [facility], [address] | | | | | | [facility], | | | | | | [place] [address] | | | | + + + + + + + + | Specimen | + + | Blood | + + + + + + + | Performing | Address | City/State/Zipcode | Phone Number | | Organization | | | | + + + + + | [facility] | [address] | [place] [address] | [phone] | + + + + + CBC [...] | | | | | [place] [address] | | | | + + + + + + + + | Specimen | + + | Blood | + + + + + + + | Performing | Address | City/State/Zipcode | Phone Number | | Organization | | | | + + + + + | [facility] | [address] | [place] [address] | [phone] | + + + + + POC Glucose (08/27/2019 8:35 PM PST) + + + + + + | Component | Value | Ref Range | Performed | Pathologist | | | | | At | Signature | + + + + + + | Glucose, | 129 (H)Comment: Testing | 65 - 99 mg/dL | [facility] | | | POC | performed at [facility] [place];[address] | | LABORATORY | | | | [address];[place] | | | | | | [address] | | | | + + + + + + + + | Specimen | + + | | + + + + + + + | Performing | Address | City/State/Zipcode | Phone Number | | Organization | | | | + + + + + | [facility] | [address] | [place] [address] | [phone] | + + + + + POC Glucose (08/27/2019 12:05 PM PST) + + + + + + | Component | Value | Ref Range | Performed | Pathologist | | | | | At | Signature | + + + + + + | Glucose, | 99Comment: Testing | 65 - 99 mg/dL | [facility] | | | POC | performed at [facility] [place];[address] | | LABORATORY | | | | [address];[place], [place] | | | | | | [address] | | | | + + + + + + + + | Specimen | + + | | + + + + + + + | Performing | Address | City/State/Zipcode | Phone Number | | Organization | | | | + + + + + | [facility] | [address] | [place] [address] | [phone] | + + + + + POC Glucose (08/27/2019 8:01 AM PST) + + + + + + | Component | Value | Ref Range | Performed | Pathologist | | | | | At | Signature | + + + + + + | Glucose, | 85Comment: Testing | 65 - 99 mg/dL | [facility] | | | POC | performed at [facility] [place];[address] | | LABORATORY | | | | [address];[place] | | | | | | [address] | | | | + + + + + + + + | Specimen | + + | | + + + + + + + | Performing | Address | City/State/Zipcode | Phone Number | | Organization | | | | + + + + + | [facility] | [address] | [place] [address] | [phone] | + + + + + Phosphorus (08/27/2019 5:10 AM PST) + + + + + + | Component | Value | Ref Range | Performed | Pathologist | | | | | At | Signature | + + + + + + | Phosphorus | 3.8Comment: Testing | 2.3 - 4.8 mg/dL | [facility] | | | | performed at [facility], [address] | | LABORATORY | | | | [address], | | | | | | [place] [address] | | | | + + + + + + + + | Specimen | + + | Blood | + + + + + + + | Performing | Address | City/State/Zipcode | Phone Number | | Organization | | | | + + + + + | [facility] | [address] | [place] [address] | [phone] | + + + + + Magnesium (08/27/2019 5:10 AM PST) + + + + + + | Component | Value | Ref Range | Performed | Pathologist | | | | | At | Signature | + + + + + + | Magnesium | 2.2Comment: Testing | 1.7 - 2.4 mg/dL | [facility] | | | | performed at [facility], [address] | | LABORATORY | | | | [address], | | | | | | [place] [address] | | | | + + + + + + + + | Specimen | + + | Blood | + + + + + + + | Performing | Address | City/State/Zipcode | Phone Number | | Organization | | | | + + + + + | [facility] | [address] | [place] [address] | [phone] | + + + + + Basic [...] | >60Comment: GFR <60: | >60 | [facility] | | | GFR | CHRONIC [...] | | | | | | MDRD IDPR traceable | | | | | | equation.Testing | | | | | | performed at [facility], [address] | | | | | | [facility], | | | | | | [place] [address] | | | | + + + + + + + + | Specimen | + + | Blood | + + + + + + + | Performing | Address | City/State/Zipcode | Phone Number | | Organization | | | | + + + + + | [facility] | [address] | [place] [address] | [phone] | + + + + + CBC [...] at | | | | | | [facility], [address] [facility] | | | | | | [place] | | | | | | [address] | | | | + + + + + + + + | Specimen | + + | Blood | + + + + + + + | Performing | Address | City/State/Zipcode | Phone Number | | Organization | | | | + + + + + | [facility] | [address] | [place] [address] | [phone] | + + + + + POC Glucose (08/27/2019 4:06 AM PST) + + + + + + | Component | Value | Ref Range | Performed | Pathologist | | | | | At | Signature | + + + + + + | Glucose, | 81Comment: Testing | 65 - 99 mg/dL | [facility] | | | POC | performed at [facility] [place] [place];[address] | | LABORATORY | | | | [address];[place], [place] | | | | | | [address] | | | | + + + + + + + + | Specimen | + + | | + + + + + + + | Performing | Address | City/State/Zipcode | Phone Number | | Organization | | | | + + + + + | [facility] | [address] | [place] [address] | [phone] | + + + + + POC Glucose (08/26/2019 9:14 PM PST) + + + + + + | Component | Value | Ref Range | Performed | Pathologist | | | | | At | Signature | + + + + + + | Glucose, | 101 (H)Comment: Testing | 65 - 99 mg/dL | [facility] | | | POC | performed at [facility] [place];[address] | | LABORATORY | | | | [address];[place], [place] | | | | | | [address] | | | | + + + + + + + + | Specimen | + + | | + + + + + + + | Performing | Address | City/State/Zipcode | Phone Number | | Organization | | | | + + + + + | [facility] | [address] | [place] [address] | [phone] | + + + + + Surgical [...] of the | | | rectum (see [id number]). As part of [facility]' Quality | | | Improvement Program, this [...] surfaceis barker-yellow and lobulated. | | | Domestic Technician sections are submitted in cassette (A1). [...] is barker-yellow and | | | lobulated. Domestic Technician sections are submitted incassette (B1). | [...] component was performed | | | by [facility], [address] [place] [address] (Medical | | | Director: Yenny Young MD; CLIA# [id number]). Professional | | | interpretation was performed by[facility], [facility] | | | [address] [address] (Medical | | | Director: Kenyon Delacruz M.D.; CLIA#: [id number]). REASON FOR | | | ADDENDUM:Results of [...] | | | preparation) was performed at [facility]. | | | Interpretation was performed at [facility]. | | | Immunohistochemical studies and/or special stains were performed on | | | this case with the appropriate controls, which stain appropriately. | | | These tests were developed and their performance characteristics | | | determined by [facility] and/or [facility]. These tests | | | may have not been cleared or approved by the U.S. Food and Drug | | | Administration. The FDA has determined that suchclearance or | | | approval is not necessary. [facility] and [facility] are certified | | | under the [...] designed to | | | detect V600E (F9896Q). Some non-V600E mutations, V600K, V600D, and | [...] | analysis test have been determined by [facility], [address] | | [address] [place], [place],but have not been cleared or approved [...] | | analysis tests were performed at [facility], [address] | | | [place] [address] (Alteration Workroom Supervisor: Gaudencio Lira MD; CLIA# | | | [id number]). REASON FOR ADDENDUM:This case is addended for the | | | addition of BRAF and KRAS Mutation Analysis results. ADDENDUM | | | PATHOLOGIC DIAGNOSIS:[id number], [id number] BIOPSY: Mutation DETECTED | | | - [...] colorectal cancer. J Clin Oncol 2008; 26(35): 5067-4507. doi: | | | 10.1200/JCO.2008.18.00893. Arnel IG, Alexis M, Boateng M, et al. | | | Wild-type KRAS is required for panitunumab efficacy in patients with | | | metastatic colorectal cancer. J Clin Oncol 2008; 26:9493-3273. | | | doi:10.1200/JCO.2007.14.50885. Gilda PATTON, Cheli MENDOZA, Ean A, et | | | al. Extended TAO mutations and anti-EGFR monoclonal antibody survival | | | benefit in metastatic colorectal cancer: a meta-analysis of | | | randomized, controlled trials.Annals of Oncol 2014; 26(1): 13-21. doi: | | | 10.1093/annon/dny683 4. Navi HERMOSILLO, Melissa RODRIGUEZ. KRAS | | | Mutation: Should We Test for It, and Does It Matter? J Clin Oncol | | | 2013; 31:8525-1887. doi: 10.1200/JCO.2012.43.0454 ADDENDUM CLINICAL | | | [...] | | paraffin tissue block B1, numbered [id number], belonging to patient | | | ARLENE ROJAS. Diagnostician: Nicanor Elias | | | DOPathologistDiagnostician: Kenyon Delacruz | | | MDPathologistDiagnostician: Prieto Brito MT([facility]) | | | MBPathologistDiagnostician: Demi Bearden [...] | | LABORATORY | | | | Blvd;[place] [address] | | | | + + + + + + + + | Specimen | + + | Blood | + + + + + + + | Performing | Address | City/State/Zipcode | Phone Number | | Organization | | | | + + + + + | [facility] | [address] | [place] [address] | [phone] | + + + + + Enriqueta [...] | | | | | performed at [facility] [place] [place];[facility] | | | | | | [address];[place], [place] | | | | | | [address] | | | | + + + + + + + + | Specimen | + + | Blood | + + + + + + + | Performing | Address | City/State/Zipcode | Phone Number | | Organization | | | | + + + + + | [facility] | [address] | [place] [address] | [phone] | + + + + + Ferritin (08/26/2019 4:25 AM PST) + + + + + + | Component | Value | Ref Range | Performed | Pathologist | | | | | At | Signature | + + + + + + | Ferritin | 144Comment: Testing | 11 - 450 ng/mL | [facility] | | | | performed at [facility], [address] | | LABORATORY | | | | [address], | | | | | | [place] [address] | | | | + + + + + + + + | Specimen | + + | Blood | + + + + + + + | Performing | Address | City/State/Zipcode | Phone Number | | Organization | | | | + + + + + | [facility] | [address] | [place] [address] | [phone] | + + + + + Iron [...] | | | | | [place] [address] | | | | + + + + + + + + | Specimen | + + | Blood | + + + + + + + | Performing | Address | City/State/Zipcode | Phone Number | | Organization | | | | + + + + + | [facility] | [address] | [place] [address] | [phone] | + + + + + CBC [...] [address], | | | | | | [place] [address] | | | | + + + + + + + + | Specimen | + + | Blood | + + + + + + + | Performing | Address | City/State/Zipcode | Phone Number | | Organization | | | | + + + + + | [facility] | [address] | [place] [address] | [phone] | + + + + + Basic [...] | >60Comment: GFR <60: | >60 | [facility] | | | GFR | CHRONIC [...] | | | | | performed at [facility], [address] | | | | | | [facility], | | | | | | [place] [address] | | | | + + + + + + + + | Specimen | + + | Blood | + + + + + + + | Performing | Address | City/State/Zipcode | Phone Number | | Organization | | | | + + + + + | [facility] | [address] | [place] [address] | [phone] | + + + + + Urinalysis [...] - 1.030 | [facility] | | | [place], | | | LABORATORY | | | [...] | | LABORATORY | | | | [facility];[address] [place] [address] | | | | | | Blvd;[place] [address] | | | | + + + [...] | + + + + + | [facility] | [address] | [place] [address] | [phone] | + + + + + Comprehensive [...] | >60Comment: GFR <60: | >60 | [facility] | | | GFR | CHRONIC [...] | | | | | | MDRD [facility] traceable | | | | | | equation.Testing | | | | | | performed at [facility] [place] [place];[address] | | | | | | [facility];[place], [place] | | | | | | [id number] | | | | + + + + + + + + | Specimen | + + | Blood | + + + + + + + | Performing | Address | City/State/Zipcode | Phone Number | | Organization | | | | + + + + + | [facility] | [address] | [place] [address] | [phone] | + + + + + CBC [...] | | | Absolute | performed at [facility] – [place];[address] | [address]/uL | LABORATORY | | | | [address]alle [address]acko;[place] | | | | | | [id number] | | | | + + + + + + + + | Specimen | + + | Blood | + + + + + + + | Performing | Address | City/State/Zipcode | Phone Number | | Organization | | | | + + + + + | [facility] [facility] | [address] | [place] [address] | [phone] | + + + + + documented [...] | | | | | | longer, [id number] use of | | | | | [...]
--- OUTSIDE RECORDS SUMMARY | ~2019-10-15 | XMS | Encounter Summary ---
Demographics + + + | Address | [address] | | | [place] [address] | + + + | Home Phone | | + + + | Preferred Language | Unknown | + + + | Marital Status | | + + + | Scientologist Affiliation | Unknown | + + + | Race | Unknown | + + + | Ethnic Group | Unknown | + + + Author + + + | Author | [facility] | | | and [place] | + + + | Organization | [facility] | | | [...] Team Providers + +------+ + | Care Notching Press Operator Name | Role | Phone | [...] + + | 08/26/ | Surgery | [facility] | Phong Tyson, | LAPAROSCOPIC | | 2019 | | [facility] | [address] | COLOSTOMY CREATION | | | | OPERATING ROOM [address] | [address] | | | | | [address] | [place] [address] | | | | | [place], [place] | [phone] | | | | | [address] | | | | | | [phone] | | | +--------+---------+ + + + [...] Barker MD - 08/30/2019 2:35 PM PST [facility] Service: Hospitalist Physician Discharge Summary Patient ID: Arlene WALKERN: [id number] 1940 78 y.o. Admit date: 08/25/2019 Discharge [...] SNF placemen t. He was accepted at [facility]. Referral to a local oncologist was sent. He will follow up with surgery in 2 weeks. Past Medical History: Past Medical History: Diagnosis Date Hyperlipidemia Hypertension 2004 Tobacco abuse Past Surgical History: Procedure Laterality Date COLOSTOMY N/A 08/26/2019 Procedure: LAPAROSCOPIC COLOSTOMY CREATION; Surgeon: Phong Tyson MD; Location: [facility] MAIN OR OTHER SURGICAL HISTORY Left 1985 ORIF ANKLE FRACTURE OTHER SURGICAL HISTORY Bilateral 2017 CATARACT EXTRACTION SIGMOIDOSCOPY N/A 08/26/2019 Procedure: SIGMOIDOSCOPY FLEXIBLE; Surgeon: Phong Tyson MD; Location: [facility] MAIN OR Discharged Condition: Stable for discharge [...] input(s): ABG Disposition: Follow up: GRIFFIN [place] [address] [facility] [address] Go on 09/11/2019 You have an appointment at 0930 on 09/11/2019 with Lizette MOYA [address] [address] Phong Tyson MD [address] [place] [address] Schedule an appointment as soon as possible [...] Gonzalez RN - 08/29/2019 2:04 PM PST [facility] Service: Ostomy Care Consult Note Hospital Day: 4 SUBJECTIVE Patient Summary: Ostomy nurse in for continued teaching. Family at bedside. 08/29/19 1897 Visit Information Visit Type Initial ostomy/fistula assessement [...] of appliance change. Plan is to return [facility] for return [facility]. Patient [facility] healthcare through the [facility]. CM has c ontacted patient's PCP and they will work with DME to get his ostomy supplies. Ostomy RX fo rm filled out with patient's specific ostomy appliances and JOSE MARIA has faxed this to the PCP. P joey is to provide patient with enough pouching supplies to last 2 weeks (until his post-op a ppointment) [facility] starter kit ordered with pt's permission # [id number] Thank you for allowing me to participate in the care of this patient. Soledad Berger RN, CWON 08/29/2019 14:04 Jasmin Herrmann MD - 08/29/2019 1:18 PM PSTFormatting of this note might be different from the or iginal. [facility] Service: Hospitalist Progress Note Hospital Day: LOS: [...] Rojas 78 y.o. 1940 Med. Record Number: [id number] Date of admission: 08/25/2019 Service(s): Colorectal Surgery [...] nursing note reviewed. Exam conducted with a marble polisher present. Cardiovascular: Rate and Rhythm: Normal rate. [...] 2:50 PM PST PROGRESS NOTE for Julyludivina Rojas on the hospitalist service. 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 Adv ance diet and encourage ambulation. Patient/family need ostomy teaching. Path still pending, once available he can f/u with heme/onc, either Dr Malik here in [facility] or supposedly there is a heme/onc Dr in the [facility] (where they live). HTN BP's [...] BMI 28.00 kg/m Physical exam: AOx3 NAD TANGIRNAQ Heart RRR Lungs CTa Abd SNTND +BS Ostomy has stool output Giuliano Villaseñor DO 08/28/2019 2:50 PM Sree Smith ARN P - 08/28/2019 8:17 AM PST Colorectal Surgery Progress Note Pt. Name/Age/: Arlene Rojas 78 y.o. 1940 Med. Record Number: [id number] Date of admission: 08/25/2019 Service(s): Colorectal Surgery [...] nursing note reviewed. Exam conducted with a marble polisher present. Cardiovascular: Rate and Rhythm: Normal rate. [...] Encourage ambulation 2. General diet ok 3. learning operations specialist consult and teaching AARON Bull 11:50 AM; 08/28/2019 Ayde Randall RN - 08/28/2019 7:53 AM PSTPt refusing waffle mattress, family and pt educated on q 2 turning instead Chart check complete Shade Larsen RN 08/28/19 @7:53 AM Giuliano Peralta DO - 08/27/2019 8:29 AM PST PROGRESS NOTE for Arlene Rojas on the hospitalist service. 08/27/2019 ASSESSMENT & [...] BMI 28.00 kg/m Physical exam: NAD AOx3 TANGIRNAQ Heart RRR Lungs CTA Abd SNTND +BS [...] BMI 28.00 kg/m Physical exam: AOx3 NAD TANGIRNAQ Heart RRR Lungs CTA Abd SNTND ostomy [...] Shade Larsen RN 08/26/19 @7:47 AM Valentín aNvarro [facility] - 08/25/2019 7:41 PM PSTRx Admission Medication History Note I have reviewed the medication history for appropriate doses obtained by: ED Pharmacist After reviewing the home medication list : I agree with the home medications list. Confirmed WEDGER medications with patient and insurance fill history. Adjusted WEDGER medications according to the medical technicians note below. - removed lopermaide. Per family [...] [address] | | | | | | [place] [address] | | | | | | [phone] | | | | | | | [...] | | | 08/25/ | | | 2018 | | | 4:37 | | | [...] | | | FICATI | | | ON? | | | | | | 9 | | | 16:36? | | | CRYSTAL, | | | | | | FERMOR | | | E | | | J?MRN: | | | | | | [id number] | | | [id number] | | | riteri | | | [...] | | | St. | | | [place] | | | y | | | [...] | | | St. | | | [place] | | | y H. | | [...] | | | St. | | | [place] | | | y H. | | [...] | | | 1-103a | | | [id number] | | | 41 | | | [...] | >60Comment: GFR <60: | >60 | [facility] | | | GFR | CHRONIC KIDNEY [...] | | | | | | MDRD IDMO traceable | | | | | | equation.Testing | | | | | | performed at [facility], [address] | | | | | | [facility], | | | | | | [place] [address] | | | | + + + + + + + + | Specimen | + + | Blood | + + + + + + + | Performing | Address | City/State/Zipcode | Phone Number | | Organization | | | | + + + + + | [facility] | [address] | [place] [address] | [phone] | + + + + + CBC with Differential (08/30/2019 4:29 AM PST) + + + + + + | Component | Value | Ref Range | Performed | Pathologist | | | | | At | Signature | + + + + + + | WBC | 8.15 | 3.80 - 11.00 | [facility] | | | | | K/uL | LABORATORY | | + + + + + + | RBC | 3.69 (L) | 4.20 - 5.70 | [place] | | | | | M/uL | [...] 0.04Comment: Testing | 0.00 - 0.10 | [facility] | | | Absolute | performed at [facility], [address] | K/uL | LABORATORY | | | | [address], | | | | | | [place] [address] | | | | + + + + + + + + | Specimen | + + | Blood | + + + + + + + | Performing | Address | City/State/Zipcode | Phone Number | | Organization | | | | + + + + + | [facility] | [address] | [place] [address] | [phone] | + + + + + Phosphorus (08/29/2019 4:53 AM PST) + + + + + + | Component | Value | Ref Range | Performed | Pathologist | | | | | At | Signature | + + + + + + | Phosphorus | 3.0Comment: Testing | 2.3 - 4.8 mg/dL | [facility] | | | | performed at [facility];[address] | | LABORATORY | | | | [address];[place], [place] | | | | | | [address] | | | | + + + + + + + + | Specimen | + + | Blood | + + + + + + + | Performing | Address | City/State/Zipcode | Phone Number | | Organization | | | | + + + + + | [facility] | [address] | [place] [address] | [phone] | + + + + + Magnesium (08/29/2019 4:53 AM PST) + + + + + + | Component | Value | Ref Range | Performed | Pathologist | | | | | At | Signature | + + + + + + | Magnesium | 1.7Comment: Testing | 1.7 - 2.4 mg/dL | [facility] | | | | performed at [facility];[address] | | LABORATORY | | | | [address];[place], [place] | | | | | | [address] | | | | + + + + + + + + | Specimen | + + | Blood | + + + + + + + | Performing | Address | City/State/Zipcode | Phone Number | | Organization | | | | + + + + + | [facility] | [address] [facility] | [place] [address] | [phone] | + + + + + Basic [...] | | | | | performed at [facility] | | | | | | [facility];[place], [place] | | | | | | [address] | | | | + + + + + + + + | Specimen | + + | Blood | + + + + + + + | Performing | Address | City/State/Zipcode | Phone Number | | Organization | | | | + + + + + | [facility] | [address] | [place] [address] | [phone] | + + + + + CBC [...] | | | Absolute | performed at [facility];[address] | K/uL | LABORATORY | | | | [address];[place] | | | | | | [address] | | | | + + + + + + + + | Specimen | + + | Blood | + + + + + + + | Performing | Address | City/State/Zipcode | Phone Number | | Organization | | | | + + + + + | [facility] | [address] | [place] [address] | [phone] | + + + + + POC Glucose (08/28/2019 4:41 PM PST) + + + + + + | Component | Value | Ref Range | Performed | Pathologist | | | | | At | Signature | + + + + + + | Glucose, | 103 (H)Comment: Testing | 65 - 99 mg/dL | [facility] | | | POC | performed at [facility];[address] | | LABORATORY | | | | [address];[place], [place] | | | | | | [address] | | | | + + + + + + + + | Specimen | + + | | + + + + + + + | Performing | Address | City/State/Zipcode | Phone Number | | Organization | | | | + + + + + | [facility] | [address] | [place] [address] | [phone] | + + + + + POC [...] | | | POC | performed at [facility];[address] | | LABORATORY | | | [address];[place], [place] | | | | | | [address] | | | | + + + + + + + + | Specimen | + + | | + + + + + + + | Performing | Address | City/State/Zipcode | Phone Number | | Organization | | | | + + + + + | [facility] | [address] | [place] [address] | [phone] | + + + + + POC Glucose (08/28/2019 8:48 AM PST) + + + + + + | Component | Value | Ref Range | Performed | Pathologist | | | | | At | Signature | + + + + + + | Glucose, | 98Comment: Testing | 65 - 99 mg/dL | [facility] | | | POC | performed at [facility];[address] | | LABORATORY | | | | [address];[place] | | | | | | [address] | | | | + + + + + + + + | Specimen | + + | | + + + + + + + | Performing | Address | City/State/Zipcode | Phone Number | | Organization | | | | + + + + + | [facility] | [address] | [place] [address] | [phone] | + + + + + Phosphorus (08/28/2019 4:18 AM PST) + + + + + + | Component | Value | Ref Range | Performed | Pathologist | | | | | At | Signature | + + + + + + | Phosphorus | 2.1 (L)Comment: Testing | 2.3 - 4.8 mg/dL | [facility] | | | | performed at L, [address] | | LABORATORY | | | | [address], | | | | | | [place] [address] | | | | + + + + + + + + | Specimen | + + | Blood | + + + + + + + | Performing | Address | City/State/Zipcode | Phone Number | | Organization | | | | + + + + + | [facility] | [address] | [place] [address] | [phone] | + + + + + Magnesium (08/28/2019 4:18 AM PST) + + + + + + | Component | Value | Ref Range | Performed | Pathologist | | | | | At | Signature | + + + + + + | Magnesium | 2.0Comment: Testing | 1.7 - 2.4 mg/dL | [facility] | | | | performed at [facility], [address] | | LABORATORY | | | | [address], | | | | | | [place] [address] | | | | + + + + + + + + | Specimen | + + | Blood | + + + + + + + | Performing | Address | City/State/Zipcode | Phone Number | | Organization | | | | + + + + + | [facility] | [address] | [place] [address] | [phone] | + + + + + Basic [...] | >60Comment: GFR <60: | >60 | [facility] | | | GFR | CHRONIC KIDNEY [...] | | | | | | MDRD [facility] traceable | | | | | | equation.Testing | | | | | | performed at [facility], [address] | | | | | | [facility], | | | | | | [place] [address] | | | | + + + + + + + + | Specimen | + + | Blood | + + + + + + + | Performing | Address | City/State/Zipcode | Phone Number | | Organization | | | | + + + + + | [facility] | [address] | [place] [address] | [phone] | + + + + + CBC [...] | | | Absolute | performed at [facility], [address] | K/uL | LABORATORY | | | | [address], | | | | | | [place] [address] | | | | + + + + + + + + | Specimen | + + | Blood | + + + + + + + | Performing | Address | City/State/Zipcode | Phone Number | | Organization | | | | + + + + + | [facility] | [address] | [place] [address] | [phone] | + + + + + POC Glucose (08/27/2019 8:35 PM PST) + + + + + + | Component | Value | Ref Range | Performed | Pathologist | | | | | At | Signature | + + + + + + | Glucose, | 129 (H)Comment: Testing | 65 - 99 mg/dL | [facility] | | | POC | performed at [facility];[address] | | LABORATORY | | | | [address];[place] | | | | | | [address] | | | | + + + + + + + + | Specimen | + + | | + + + + + + + | Performing | Address | City/State/Zipcode | Phone Number | | Organization | | | | + + + + + | [facility] | [address] | [place] [address] | [phone] | + + + + + POC Glucose (08/27/2019 12:05 PM PST) + + + + + + | Component | Value | Ref Range | Performed | Pathologist | | | | | At | Signature | + + + + + + | Glucose, | 99Comment: Testing | 65 - 99 mg/dL | [facility] | | | POC | performed at [facility];[address] | | LABORATORY | | | | [address];[place], [place] | | | | | | [address] | | | | + + + + + + + + | Specimen | + + | | + + + + + + + | Performing | Address | City/State/Zipcode | Phone Number | | Organization | | | | + + + + + | [facility] | [address] | [place] [address] | [phone] | + + + + + POC Glucose (08/27/2019 8:01 AM PST) + + + + + + | Component | Value | Ref Range | Performed | Pathologist | | | | | At | Signature | + + + + + + | Glucose, | 85Comment: Testing | 65 - 99 mg/dL | [facility] | | | POC | performed at [facility];[address] | | LABORATORY | | | | [address];[place] | | | | | | [address] | | | | + + + + + + + + | Specimen | + + | | + + + + + + + | Performing | Address | City/State/Zipcode | Phone Number | | Organization | | | | + + + + + | [facility] | [address] | [place] [address] | [phone] | + + + + + Phosphorus (08/27/2019 5:10 AM PST) + + + + + + | Component | Value | Ref Range | Performed | Pathologist | | | | | At | Signature | + + + + + + | Phosphorus | 3.8Comment: Testing | 2.3 - 4.8 mg/dL | [facility] | | | | performed at [facility], [address] | | LABORATORY | | | | [address], | | | | | | [place] [address] | | | | + + + + + + + + | Specimen | + + | Blood | + + + + + + + | Performing | Address | City/State/Zipcode | Phone Number | | Organization | | | | + + + + + | [facility] | [address] | [place] [address] | [phone] | + + + + + Magnesium (08/27/2019 5:10 AM PST) + + + + + + | Component | Value | Ref Range | Performed | Pathologist | | | | | At | Signature | + + + + + + | Magnesium | 2.2Comment: Testing | 1.7 - 2.4 mg/dL | [facility] | | | | performed at [facility], [address] | | LABORATORY | | | | [address], | | | | | | [place] [address] | | | | + + + + + + + + | Specimen | + + | Blood | + + + + + + + | Performing | Address | City/State/Zipcode | Phone Number | | Organization | | | | + + + + + | [facility] | [address] | [place] [address] | [phone] | + + + + + Basic [...] | | | | | performed at [facility], [address] | | | | | | [address], | | | | | | [place] [address] | | | | + + + + + + + + | Specimen | + + | Blood | + + + + + + + | Performing | Address | City/State/Zipcode | Phone Number | | Organization | | | | + + + + + | [facility] | [address] | [place] [address] | [phone] | + + + + + CBC [...] at | | | | | | [facility], [address] [facility] | | | | | | [place] | | | | | | [address] | | | | + + + + + + + + | Specimen | + + | Blood | + + + + + + + | Performing | Address | City/State/Zipcode | Phone Number | | Organization | | | | + + + + + | [facility] | [address] | [place] [address] | [phone] | + + + + + POC Glucose (08/27/2019 4:06 AM PST) + + + + + + | Component | Value | Ref Range | Performed | Pathologist | | | | | At | Signature | + + + + + + | Glucose, | 81Comment: Testing | 65 - 99 mg/dL | [facility] | | | POC | performed at [facility];[address] | | LABORATORY | | | | [address];[place], [place] | | | | | | [address] | | | | + + + + + + + + | Specimen | + + | | + + + + + + + | Performing | Address | City/State/Zipcode | Phone Number | | Organization | | | | + + + + + | [facility] | [address] | [place] [address] | [phone] | + + + + + POC [...] | | | POC | performed at [facility];[address] | | LABORATORY | | | | [address] [facility];[place], [place] | | | | | | [address] | | | | + + + + + + + + | Specimen | + + | | + + + + + + + | Performing | Address | City/State/Zipcode | Phone Number | | Organization | | | | + + + + + | [facility] | [address] | [place] [address] | [phone] | + + + + + Surgical [...] of the | | | rectum (see [id number]). As part of [facility]' Quality | | | Improvement Program, this [...] surfaceis barker-yellow and lobulated. | | | Deputy Felony Clerk sections are submitted in cassette (A1). B. [...] is barker-yellow and | | | lobulated. Deputy Felony Clerk sections are submitted incassette (B1). | | [...] component was performed | | | by [facility] [address] (Medical | | | Director: Yenny Young MD; CLIA# [id number]). Professional | | | [facility] | | | [address] [address] (Medical | | | Director: Kenyon Delacruz M.D.; CLIA#: [id number]). REASON FOR | | | ADDENDUM:Results of [...] | | | preparation) was performed at [facility]. | | | Interpretation was performed at [facility]. | | | Immunohistochemical studies and/or special stains were performed on | | | this case with the appropriate controls, which stain appropriately. | | | These tests were developed and their performance characteristics | | | determined by [facility] and/or [facility]. These tests | | | may have not been cleared or approved by the U.S. Food and Drug | | | Administration. The FDA has determined that suchclearance or | | | approval is not necessary. [facility] and [facility] are certified | | | under [...] designed to | | | detect V600E ([id number]). Some non-V600E mutations, V600K, V600D, and | [...] | analysis test have been determined by [facility], [address] | | [address] [place], [place],but have not been cleared or approved [...] | | analysis tests were performed at [facility], [address] [place] [address] [address] | | | [address] [place] [address] (Wood Boatbuilder: Gaudencio Lira MD; IA# | | | [id number]). REASON FOR ADDENDUM:This case is addended for the | | | addition of BRAF and KRAS Mutation Analysis results. ADDENDUM | | | PATHOLOGIC DIAGNOSIS:[id number], [id number] BIOPSY: Mutation DETECTED | | | - [...] colorectal cancer. J Clin Oncol 2008; 26(35): 2780-3858. doi: | | | 10.1200/JCO.2008.18.57886. Arnel IG, Alexis M, Boateng M, et al. | | | Wild-type KRAS is required for panitunumab efficacy in patients with | | | metastatic colorectal cancer. J Clin Oncol 2008; 26:3870-5522. | | | doi:10.1200/JCO.2007.14.28373. Gilda PATTON, Cheli MENDOZA, Ean A, et | | | al. Extended TAO mutations and anti-EGFR monoclonal antibody survival | | | benefit in metastatic colorectal cancer: a meta-analysis of | | | randomized, controlled trials.Annals of Oncol 2014; 26(1): 13-21. doi: | | | 10.1093/annonc/pgg367 4. Navi HERMOSILLO, Melissa RODRIGUEZ. KRAS | | | Mutation: Should We Test for It, and Does It Matter? J Clin Oncol | | | 2013; 31:2969-1499. doi: 10.1200/JCO.2012.43.0454 ADDENDUM CLINICAL | | | HISTORY:Client Request: BRAF and KRAS Mutation Analysis requested by | | | Pj MENDOZA, Paras Mckeon ADDENDUM MICROSCOPIC EXAMINATION:An HE slide | | [...] | | paraffin tissue block B1, numbered [id number], belonging to patient | | | ARLENE ROJAS. Diagnostician: Nicanor Elias | | | DOPathologistDiagnostician: Kenyon Delacruz | | | MDPathologistDiagnostician: Prieto Brito MT([facility]) | | | MBPathologistDiagnostician: Demi Bearden [...] + +---------+ + + XR Chest 1 Jessica (08/26/2019 5:27 AM PST) + + | [...] | | | | Signed by: Celine Watson, Linda | | Sign Date/Time: 08/26/2019 6:35 AM [...] | | LABORATORY | | | | [address];[place] [address] | | | | + + + + + + + + | Specimen | + + | Blood | + + + + + + + | Performing | Address | City/State/Zipcode | Phone Number | | Organization | | | | + + + + + | [facility] | [address] | [place] [address] | [phone] | + + + + + Protime INR (08/26/2019 4:25 AM PST) + + + + + + | Component | Value | Ref Range | Performed | Pathologist | | | | | At | Signature | + + + + + + | INR | 1.1Comment: REFERENCE | | [facility] | | | | RANGE:0.9 - 1.2 [...] | | | | | performed at [facility];[address] | | | | | | [facility];[place], [place] | | | | | | [address] | | | | + + + + + + + + | Specimen | + + | Blood | + + + + + + + | Performing | Address | City/State/Zipcode | Phone Number | | Organization | | | | + + + + + | [facility] | [address] | [place] [address] | [phone] | + + + + + Ferritin (08/26/2019 4:25 AM PST) + + + + + + | Component | Value | Ref Range | Performed | Pathologist | | | | | At | Signature | + + + + + + | Ferritin | 144Comment: Testing | 11 - 450 ng/mL | [facility] | | | | performed at [facility], [address] | | LABORATORY | | | | [address], | | | | | | [place] [address] | | | | + + + + + + + + | Specimen | + + | Blood | + + + + + + + | Performing | Address | City/State/Zipcode | Phone Number | | Organization | | | | + + + + + | [facility] | [address] | [place] [address] | [phone] | + + + + + Iron [...] Testing | 20 - 50 % | [facility] | | | Saturation | performed at [facility], [address] | | LABORATORY | | | | [address], | | | | | | [place] [address] | | | | + + + + + + + + | Specimen | + + | Blood | + + + + + + + | Performing | Address | City/State/Zipcode | Phone Number | | Organization | | | | + + + + + | [facility] | [address] | [place] [address] | [phone] | + + + + + CBC [...] [facility] | | | | performed at [facility], [address] | | LABORATORY | | | | [facility], | | | | | | [place] [address] | | | | + + + + + + + + | Specimen | + + | Blood | + + + + + + + | Performing | Address | City/State/Zipcode | Phone Number | | Organization | | | | + + + + + | [facility] | [address] | [place] [address] | [phone] | + + + + + Basic [...] | >60Comment: GFR <60: | >60 | [facility] | | | GFR | CHRONIC KIDNEY [...] | | | | | | MDRD [facility] traceable | | | | | | equation.Testing | | | | | | performed at [facility], [address] | | | | | | [facility], | | | | | | [place] [address] | | | | + + + + + + + + | Specimen | + + | Blood | + + + + + + + | Performing | Address | City/State/Zipcode | Phone Number | | Organization | | | | + + + + + | [facility] | [address] | [place] [address] | [phone] | + + + + + Urinalysis [...] - 1.030 | [facility] | | | [place], | | | LABORATORY | | | [...] UA | NONE SEENComment: | NONE | [facility] | | | | Testing performed at | | LABORATORY | | | | [facility];[address];[place] [address] | | | | + + + [...] | + + + + + | [facility] | [address] | [place] [address] | [phone] | + + + + + Comprehensive [...] | >60Comment: GFR <60: | >60 | [facility] | | | GFR | CHRONIC KIDNEY [...] | | | | | performed at [facility];[address] | | | | | | [facility];[place], [place] | | | | | | [address] | | | | + + + + + + + + | Specimen | + + | Blood | + + + + + + + | Performing | Address | City/State/Zipcode | Phone Number | | Organization | | | | + + + + + | [facility] | [address] | [place] [address] | [phone] | + + + + + CBC [...] | | | Absolute | performed at [facility];[address] | [address] | LABORATORY | | | | [address];[place] | | | | | | [address] | | | | + + + + + + + + | Specimen | + + | Blood | + + + + + + + | Performing | Address | City/State/Zipcode | Phone Number | | Organization | | | | + + + + + | [facility] | [address] | [place] [address] | [phone] | + + + + + documented [...]
--- OUTSIDE RECORDS SUMMARY | ~2019-10-15 | XMS | Encounter Summary ---
Demographics + + + | Address | [address] | | | [place] [address] | + + + | Home Phone | | + + + | Preferred Language | Unknown | + + + | Marital Status | | + + + | Jehovah'S Witness Affiliation | Unknown | + + + | Race | Unknown | + + + | Ethnic Group | Unknown | + + + Author + + + | Author | [facility] | | | and [place] | + + + | Organization | [facility] | | | [...] Team Providers + +------+ + | Care Leather Grader Name | Role | Phone | + [...] + + | 09/05/ | Navigation | [facility] | Alva See | | | 2019 | Services | HEMATOLOGY AND | JAIME Persaud | | | | | ONCOLOGY [address] | | | | | | [address] | | | | | | [place] | | | | | | [address] | | | | | | [phone] | | | +--------+ + + + [...] Alva Cross, RN - 09/05/2019 10:11 AM [facility] has been asked by Cristian Adam to refer pt to local oncologist near his home in [place], [place]. Referral entered for Dr Paras crowell, but referral must come from pcp due to insurance requirement. 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 Will have SHAUN Stubbs's office fax medical records to both pcp office and to Dr Oliva's off ice regarding this patient. ALVA BOWERS, RN, OCN Colorectal Oncology Nurse Navigator documented in thi s encounter Plan of Treatment +--------+---------+ + + + | Date | Type | Specialty | Care Team | Description | +--------+---------+ + + + | 10/16/ | Office | Wound Care | Jair, | | | 2019 | Visit | | [address] | | | | | | [facility] [address] | | | | | | [place] [address] | | | | | | [phone] | | | | | | | | +--------+---------+ + + + documented as of this encounter Visit Diagnoses Not on filedocumented in this encounter"
--- OUTSIDE RECORDS SUMMARY | ~2019-10-15 | XMS | Clinical Summary ---
Demographics + + + | Address | [address] | | | [place] [address] | + + + | Home Phone | | + + + | Preferred Language | Unknown | + + + | Marital Status | Unknown | + + + | Episcopal Affiliation | Unknown | + + + | Race | Unknown | + + + | Ethnic Group | Unknown | + + + Author + + + | Author | [facility] (Historical as of | | | 05-20-19) | + + + | Organization | [facility] (Historical as of | | | 05-20-19) | + + + | Address | Unknown | + + + | Phone | Unavailable | + + + Support + + +---------+ + | Name | Relationship | Address | Phone | + + +---------+ + | Gissel Delgado | FAHAD | Unknown | | + + +---------+ + Care Team Providers + +------+ + | Care Smoke Jumper Supervisor Name | Role | Phone | + +------+ + PP | Unavailable | + +------+ + Allergies No Known Allergies Current Medications + + +-------+---------+------+------+-------+ | Prescription | Sig. | Disp. | Refills | Star | End | Statu | | | | | | t | Date | s | | | | | | Date | | | + + +-------+---------+------+------+-------+ | lisinopril | Take 10 mg by mouth | | | | | Activ | | (ZESTRIL) 10 MG | daily. | | | | | e | | tablet | | | | | | | + + +-------+---------+------+------+-------+ | aspirin 325 MG | Take 325 mg by mouth | | | | | Activ | | tablet | daily with | | | | | e | | | breakfast. | | | | | | + + +-------+---------+------+------+-------+ | atorvastatin | Take 10 mg by mouth | | | | | Activ | | (LIPITOR) 10 MG | nightly. | | | | | e | | tablet | | | | | | | + + +-------+---------+------+------+-------+ Active Problems + + + | Problem | Noted Date | + + + | Tobacco abuse | | + + + | Hypertension | | + + + | Hyperlipidemia | | + + + Family History + + +------+ + | Medical History | Relation | Name | Comments | + + +------+ + | Alzheimer's disease | Brother | | | + + +------+ + | Cancer | Brother | | | + + +------+ + | Seizures | Father | | | + + +------+ + | Alcoholism | Mother | | | + + +------+ + | CVA | Sister | | | + + +------+ + + +------+ [...] Current Every Day | | 0.2 | 61 | | | Smoker | | | | | + +-------+ +--------+------+ + +---+---+---+ | Smokeless Tobacco: | | | | | Former User | | | | + +---+---+---+ + + | Tobacco Cessation: Ready to Quit: No; Counseling Given: Yes | + + + + +---------+ + | Alcohol Use | Drinks/We | oz/Week | Comments | | | ek | | | + + +---------+ + | Yes | 6 | 3.6 | binge drinking on Saturdays | | | Standard | | | | | drinks or | | | | | | | | | | equivalen | | | | | t | | | + + +---------+ + + + + | Sex Assigned at | Date Recorded | | | | + + + | Not on file | | + + + Last Filed Vital Signs + + + + | Vital Sign | Reading | Time Taken | + + + + | Blood Pressure | 112/66 | 05/11/2019 10:28 AM PDT | + + + + | Pulse | 75 | 05/11/2019 10:25 AM PDT | + + + + | Temperature | - | - | + + + + | Respiratory Rate | - | - | + + + + | Oxygen Saturation | 96% | 05/11/2019 10:25 AM PDT | + + + + | Inhaled Oxygen | - | - | | Concentration | | | + + + + | Weight | 84.8 kg (187 lb) | 05/11/2019 10:25 AM PDT | + + + + | Height | 170.2 cm (5' 7") | 05/11/2019 10:25 AM PDT | + + + + | Body Mass Index | 29.29 | 05/11/2019 10:25 AM PDT | + + + + Plan of Treatment [...] | | | | | Pneumococcal 65+ | 5 | | | | Low/Medium Risk (1 | | | | | of 2 - PCV13) | | | | + + + + + | Vaccine: Influenza | | | | | (#1) | 9 | | | + + + + + Results Not on filefrom Last 3 Months Insurance + +--------+ +------+-------+ + | Payer | Benefi | Subscriber | Type | Phone | Address | | | t Plan | ID | | | | | | / | | | | | | | Group | | | | | + +--------+ +------+-------+ + | /[facility] | YELLOW | [id number] | | | | | PLANS | [place] | | | | | + +--------+ +------+-------+ + | MEDICARE | MEDICA | [id number] | | | [address] | | | RE | | | | [place] [address] | | | IP-OP | | | | | + +--------+ +------+-------+ + + +--------+ +--------+ + + | Guarantor Name | Accoun | Relation to | Date | Phone | Billing Address | | | t Type | Patient | of | | | | | | | | | | + +--------+ +--------+ + + | KRIS DELGADO | Person | Self [birth year] | Home: | [address] | | | al/Fam | | 1941 | [phone] [place] [address] | | | [place] | | | [phone] | | + +--------+ +--------+ + +
--- OUTSIDE RECORDS SUMMARY | ~2019-10-15 | XMS | Clinical Summary ---
Demographics + + + | Address | [address] | | | [place] [address] | + + + | Home Phone | | + + + | Preferred Language | Unknown | + + + | Marital Status | | + + + | Caodaism Affiliation | Unknown | + + + | Race | Unknown | + + + | Ethnic Group | Unknown | + + + Author + + + | Author | [facility] | | | and [place] | + + + | Organization | [facility] | | | [...] Team Providers + +------+ + | Care Superintendent Compressor Stations Name | Role | Phone | + [...] right | | lung.1. Presentation to the [facility] Emergency Room | | on August 23, 2019 with a 10 week history of abdominal | | distension and pain, and bloody diarrhea.2. CT scan | | abdomen/pelvis on August 23, [address] [facility] | | demonstrated significant nodularity in the omentum and mesentery, | | thickened rectosigmoid with diminished lumen. No liver | | metastases, nodule at left lung base. 3. Limited colonoscopy and | | rigid proctoscopy (Tahir) on August 24, 2019 demonstrated a | | circumferential palpable mass palpable within the rectum, | | estimated to be 10 cm long by proctoscopy. Specimen # [id number] | | (Leiva, Berry Kitchen); Pooly differentiated | | adenocarcinoma, with signet [...] on September 03, 2019 ([facility], | | [place]); innumerable mesenteric and omental soft tissue | | nodules, largest 3 x 5.5 cm, right basilar pleural effusion and | | bilateral pleural nodularity suspicious for metastatic disease. | | Last Assessment & Plan: Arlene Rojas is referred by Sree | | Yifan Adam [address] [facility] [address] [place] [address] for | | evaluation and management of confirmed regionally metastatic | | colon cancer to the omentum, with unconfirmed metastatic disease | | to the right lung.I met with Crystal and his daughter, Gissel, at | | the [facility] on | | 09/14/2019.Review of systems is notable for rectal pain.Clinical | | exam is notable for decreased breath sounds and dullness at the | | right base.Laboratory exam is notable for elevated CEA.Images | | from his [facility] evaluations were | | reviewed.Assessment: confirmed regionally metastatic colon cancer | | to the omentum, with unconfirmed metastatic disease to the right | | lung.Plan; This was an extended, high-value encounter were we | | reviewed Mr. Rojas's [id number], his goals of therapy and | | [...] | | proceed with treatment directly at [facility] in | | [place], [place]. He will be referred to Dr. [...] automatically from request for surgery | | [id number] | + + + + + | Rectal obstruction | 08/25/2019 | + + + + + | Overview: Added automatically from request for surgery | | [id number] | + + + + + | [...] | | | 2019 | | | LETTERPRESS SETTER | | +--------+ + + + + [...] | | 2018 | on | | Window Cleaner | | +--------+ + + + + [...] [address] | | | | | | [place] [address] | | | | | | [phone] | | | | | | | [...] J?MRN: | | | | | | [id number] | | | [id number] | | | riteri | | | [...] | | | St. | | | [place] | | | y | | | [...] | | | St. | | | [place] | | | y H. | | [...] | | | St. | | | [place] | | | y H. | | [...] | | | 1-103a | | | [id number] | | | 41 | | | [...] | | | vemedi | | | korutney.co | | | m | +---+--------+ + [...] | | | Absolute | performed at [facility], [address] | [address] | LABORATORY | | | | [address], | | | | | | [place] [address] | | | | + + + + + + + + | Specimen | + + | Blood | + + + + + + + | Performing | Address | City/State/Zipcode | Phone Number | | Organization | | | | + + + + + | [facility] | [address] | [place] [address] | [phone] | + + + + + Comprehensive Metabolic Panel (08/30/2019 4:29 AM [facility])Only the most recent of 2 results wi [...] | >60Comment: GFR <60: | >60 | [facility] | | | GFR | [...] | | | | | performed at [facility], [address] | | | | | | [facility], | | | | | | [place] [address] | | | | + + + + + + + + | Specimen | + + | Blood | + + + + + + + | Performing | Address | City/State/Zipcode | Phone Number | | Organization | | | | + + + + + | [facility] | [address] | [place] [address] | [phone] | + + + + + Phosphorus [...] Testing | 2.3 - 4.8 mg/dL | [facility] | | | | performed at [facility];[address] | | LABORATORY | | | | [address];[place], [place] | | | | | | [address] | | | | + + + + + + + + | Specimen | + + | Blood | + + + + + + + | Performing | Address | City/State/Zipcode | Phone Number | | Organization | | | | + + + + + | [facility] | [address] | [place] [address] | [phone] | + + + + + Magnesium [...] [facility] | | | | performed at [facility];[address] | | LABORATORY | | | | [address];[place], [place] | | | | | | [address] | | | | + + + + + + + + | Specimen | + + | Blood | + + + + + + + | Performing | Address | City/State/Zipcode | Phone Number | | Organization | | | | + + + + + | [facility] | [address] | [place] [address] | [phone] | + + + + + Basic [...] | | | | | performed at [facility];[address] | | | | | | [address];[place] | | | | | | [address] | | | | + + + + + + + + | Specimen | + + | Blood | + + + + + + + | Performing | Address | City/State/Zipcode | Phone Number | | Organization | | | | + + + + + | [facility] | [address] | [place] [address] | [phone] | + + + + + POC [...] | | | POC | performed at [facility];[address] | | LABORATORY | | | | [address];[place], [place] | | | | | | [address] | | | | + + + + + + + + | Specimen | + + | | + + + + + + + | Performing | Address | City/State/Zipcode | Phone Number | | Organization | | | | + + + + + | [facility] | [address] | [place] [address] | [phone] | + + + + + Surgical [...] of the | | | rectum (see [id number]). As part of [facility]' Quality | | | Improvement Program, this [...] surfaceis barker-yellow and lobulated. | | | Work And Family Life Consultant sections are submitted in cassette (A1). B. [...] is barker-yellow and | | | lobulated. Work And Family Life Consultant sections are submitted incassette (B1). | | [...] component was performed | | | by [facility], [address] [place] [address] (Medical | | | Director: Yenny Young MD; CLIA# [id number]). Professional | | | [facility] | | | [address] [address] (Medical | | | Director: Kenyon Delacruz M.D.; CLIA#: [id number]). REASON FOR | | | ADDENDUM:Results of [...] | | | preparation) was performed at [facility]. | | | Interpretation was performed at [facility]. | | | Immunohistochemical studies and/or special stains were performed on | | | this case with the appropriate controls, which stain appropriately. | | | These tests were developed and their performance characteristics | | | determined by [facility] and/or [facility]. These tests | | | may have not been cleared or approved by the U.S. Food and Drug | | | Administration. The FDA has determined that suchclearance or | | | approval is not necessary. [facility] and [facility] are certified | | | under [...] designed to | | | detect V600E (I6713P). Some non-V600E mutations, V600K, V600D, and | [...] | analysis test have been determined by [facility], [address] | | [address] [place], [place],but have not been cleared or approved [...] | | analysis tests were performed at [facility], [facility] [address] | | | [place] [address] (Restaurant Kitchen Manager: Gaudencio Lira MD; CLIA# | | | [id number]). REASON FOR ADDENDUM:This case is addended for the | | | addition of BRAF and KRAS Mutation Analysis results. ADDENDUM | | | PATHOLOGIC DIAGNOSIS:[id number], [id number] BIOPSY: Mutation DETECTED | | | - [...] colorectal cancer. J Clin Oncol 2008; 26(35): 4903-1755. doi: | | | 10.1200/JCO.2008.18.25939. Arnel IG, Alexis M, Kilo M, et al. | | | Wild-type KRAS is required for panitunumab efficacy in patients with | | | metastatic colorectal cancer. J Clin Oncol 2008; 26:1169-1611. | | | doi:10.1200/JCO.2007.14.94827. Gilda PATTON, Cheli MENDOZA, Ean A, et | | | al. Extended TAO mutations and anti-EGFR monoclonal antibody survival | | | benefit in metastatic colorectal cancer: a meta-analysis of | | | randomized, controlled trials.Annals of Oncol 2014; 26(1): 13-21. doi: | | | 10.1093/annonc/iql388 4. Navi PJ, Melissa RODRIGUEZ. KRAS | | | Mutation: Should We Test for It, and Does It Matter? J Clin Oncol | | | 2013; 31:4133-8009. doi: 10.1200/JCO.2012.43.0454 ADDENDUM CLINICAL | | | [...] | | paraffin tissue block B1, numbered [id number], belonging to patient | | | ARLENE ROJAS. Diagnostician: Nicanor Elias | | | DOPathologistDiagnostician: Kenyon Delacruz | | | MDPathologistDiagnostician: Prieto Brito MT([facility]) | | | MBPathologistDiagnostician: Demi [...] | | [facility] | | | | [facility];[address] | | LABORATORY | | | | [address];[place] [address] | | | | + + + + + + + + | Specimen | + + | Blood | + + + + + + + | Performing | Address | City/State/Zipcode | Phone Number | | Organization | | | | + + + + + | [facility] | [address] | [place] [address] | [phone] | + + + + + Iron [...] | | | | | | [place] [address] | | | | + + + + + + + + | Specimen | + + | Blood | + + + + + + + | Performing | Address | City/State/Zipcode | Phone Number | | Organization | | | | + + + + + | [facility] | [address] | [place] [address] | [phone] | + + + + + Protime [...] | | | | | performed at [facility] | | | | | | [address];[place], [place] | | | | | | [address] | | | | + + + + + + + + | Specimen | + + | Blood | + + + + + + + | Performing | Address | City/State/Zipcode | Phone Number | | Organization | | | | + + + + + | [facility] | [address] | [place] [address] | [phone] | + + + + + CBC [...] | | | | | [place] [address] | | | | + + + + + + + + | Specimen | + + | Blood | + + + + + + + | Performing | Address | City/State/Zipcode | Phone Number | | Organization | | | | + + + + + | [facility] | [address] | [place] [address] | [phone] | + + + + + Ferritin (08/26/2019 4:25 AM PST) + + + + + + | Component | Value | Ref Range | Performed | Pathologist | | | | | At | Signature | + + + + + + | Ferritin | 144Comment: Testing | 11 - 450 ng/mL | [facility] | | | | performed at [facility], [address] | | LABORATORY | | | | [address], | | | | | | [place] [address] | | | | + + + + + + + + | Specimen | + + | Blood | + + + + + + + | Performing | Address | City/State/Zipcode | Phone Number | | Organization | | | | + + + + + | [facility] | [address] | [place] [address] | [phone] | + + + + + Urinalysis [...] - 1.030 | [facility] | | | [place], | | | LABORATORY | | | [...] | | LABORATORY | | | | [facility];[address];[place] [address] | | | | + + + [...] | + + + + + | [facility] | [address] | [place] [address] | [phone] | + + + + + PATHOLOGY [...] +--------+ +---------+--------+ | MEDICARE | MEDICA | [id number] | 04/03/20 | [phone] | | Medica | | | RE | | 14-Pre | 5 | | re | | | PART A | | sent | | | | | | AND B | | | | | | + +--------+ +--------+ +---------+--------+ | FORMERLY [facility] | IHS | [id number] | | | | Indemn | | SERVICE | YELLOW | | 019-Pr | | | ity | | | [place] | | esent | | | | + +--------+ +--------+ +---------+--------+ | [facility] | [employer]HS | [id number] | 10/04/19 | | | Indemn | | SERVICE | YELLOW | | 19-Pre | | | ity | | | [place] | | sent | | | | + +--------+ +--------+ +---------+--------+ | MEDICARE | MEDICA | [id number] | 04/03/20 | [phone] | | Medica [...] Person | Self | [birth year] | | [address] | | | al/Fam | | 1941 | [phone] | [place] [address] | | | [place] | | | 9 (Home) | | + +--------+ +--------+ + + | Arlene Rojas | Person | Self | [birth year] | | [address] | | | al/Fam | | 1941 | [phone] | [place] [address] | | | [place] | | | 9 (Home) | | + +--------+ +--------+ + + Advance Directives + + + + + | Type | Date Recorded | Patient | Explanation | | | | Work And Family Life Consultant | | + + + + + | Power of | | | | | Diffusion Furnace Operator | | | | + + [...]
--- OUTSIDE RECORDS SUMMARY | ~2019-10-15 | XMS | Encounter Summary ---
Demographics + + + | Address | [address] | | | [place] [address] | + + + | Home Phone [...] Team Providers + +------+ + | Care Baggage Security Checker Name | Role | Phone | + [...] Care | Adenocarcino | Paras Leach, | [address] | | | | | ma of | MD [address] | | | | | rectosigmoid | [address] | [place], [place] | | | | | junction | [place], | [address] | | | | | ([facility]) | [place] [address] | Phone: | | | | | | Phone: | [phone] | | | | | | [phone] | Fax: | | | | | | Fax: | [phone] | | | | | | [phone] | | +--------+ + + + + [...] | Required | Oncology | Adenocarcino | RENEWABLE ENERGY ENGINEER [address] | Paras Leach MD | | | | | ma of | [address] | [address] | | | | | rectosigmoid | [address] | [address] [place] | | | | | junction | [place], [place] | [place], [place] | | | | | ([facility]) | [address] | [address] Phone: | | | | | | Phone: | [phone] | | | | | | [phone] | Fax: | | | | | | Fax: | [phone] | | | | | | [phone] | | + + + + + + + Encounter Details +--------+ + + + + | Date | Type | Department | Care Team | Description | +--------+ + + + + | 09/14/ | Hospital | [facility] | Pj, | Adenocarcinoma of | | 2019 | Encounter | [facility] | Paras Leach MD [address] | rectosigmoid | | | | [facility] [address] [place] | junction (HCC) | | | | [address] [place] | [place] [address] | | | | | [place] [address] | [phone] | | | | | [phone] | | | +--------+ + + + [...] | | | | | [place] [address] | | | | | | [phone] | | | | | | | [...]
--- OUTSIDE RECORDS SUMMARY | ~2019-10-15 | XMS | Encounter Summary ---
Demographics + + + | Address | [address] | | | [place] [address] | + + + | Home Phone [...] Team Providers + +------+ + | Care Investigative Research Specialist Name | Role | Phone | + +------+ + | Lizette Martinez | PCP | | + +------+ + Encounter Details +--------+ + + + + | Date | Type | Department | Care Team | Description | +--------+ + + + + | 09/05/ | Documentati | [facility] | Evelyne Gonzalez, | | | 2019 | on | GENERAL SURGERY [address] | Dowel Inserting Machine Operator | | | | | [address] | | | | | | [place] | | | | | | [address] | | | | | | [phone] | | | +--------+ + + + [...] documented as of this encounter Progress Notes Evelyne Gonzalez Dowel Inserting Machine Operator - 09/05/2019 10:45 AM PSTPertinent medical records and demographics sent to patient's PCP and Dr. Paras Oliva per ONN request via fax. Fax confirmation received. Electronically signed by Adriel Starr Assistant at 09/05 10:46 AM PSTdocumented in this encounter Plan of Treatment +--------+---------+ + + + | Date | Type | Specialty | Care Team | Description | +--------+---------+ + + + | 10/16/ | Office | Wound Care | Jair, | | | 2019 | Visit | | [address] | | | | | | [address] | | | | | | [place] [address] | | | | | | [phone] | | | | | | | | +--------+---------+ + + + documented as of this encounter Visit Diagnoses Not on filedocumented in this encounter"
--- OUTSIDE RECORDS SUMMARY | ~2019-10-15 | XMS | Encounter Summary ---
Demographics + + + | Address | [address] | | | [place] [address] | + + + | Home Phone | | + + + | Preferred Language | Unknown | + + + | Marital Status | | + + + | Buddhism Affiliation | Unknown | + + + | Race | Unknown | + + + | Ethnic Group | Unknown | + + + Author + + + | Author | [facility] | | | and [place] | + + + | Organization | [facility] | | | and [place] | + + + | Address | Unknown | + + + | Phone | Unavailable | + + + Support + + +---------+ + | Name | Relationship | Address | Phone | + + +---------+ + | Gsisel Delgado | ECON | Unknown | | + + +---------+ + Care Team Providers + +------+ + | Care Frame Operator Name | Role | Phone | [...] [place] | | | | | | [address] | | | | | | [phone] | | | +--------+ + + + [...] | | | | | [place] [address] | | | | | | [phone] | | | | | | | [...] 0.67 m/s MV | | | Dec [place]: 1.81 m/s2 MV DecT: 317.65 ms MV E Emanuel: 0.57 m/s | | | MV E/A Ratio: 0.85 E/E' Sept: 11.69 E' Lat: 0.08 m/s E' | | | Sept: 0.04 m/s RAP: 5 mmHg RV S': 0.12 m/s RVSP: 25.91 | | | mmHg TR maxP.91 mmHg TR Vmax: 2.28 m/s Video Engineer: | | | Authenticated by: Cici Abraham Report Date/Time: 02-21-2019 19:5:14 | | + + + + + | Procedure Note | + + | Evens, Rad Conversion - 05/25/2019 2:07 PM PDT Patient [...] mlLAESV Index (A-L): 24.25 ml/m2LAAs A2C: 14.49 [id number] A-L A2C: 33.91 | | mlLAESV MOD A2C: 32.12 mlLALs A2C: 5.25 cmLAAs A4C: 19.79 [id number] A-L A4C: | | 58.12 mlLAESV MOD A4C: 57.48 mlLALs A4C: 5.72 cmRAAs: 18.17 vt4NTOEV A-L: 49.96 | | mlRAESV MOD: 49.15 mlRALs: 5.60 cmTAPSE: 2.19 cmAV Env.Ti: 293.90 msAV maxPG: | | 4.91 mmHgAV meanP.41 mmHgAV Vmax: 1.10 m/Milton Vmean: 0.72 m/Milton VTI: 21.23 | | cmAVA Vmax: 3.17 cm2AVA (VTI): 3.89 pg6OZVG Vmax: 0.00 cm2/m2AVAI (VTI): 0.00 | | cm2/m2LVOT Env.Ti: 360.44 msLVOT maxP.14 mmHgLVOT meanP.50 mmHgLVSI Dopp: | | 43.29 ml/m2LVSV Dopp: 82.69 mlLVOT Vmax: 0.88 m/sLVOT Vmean: 0.57 m/sLVOT VTI: | | 20.85 cmMV A Emanuel: 0.67 m/sMV Dec [place]: 1.81 m/s2MV DecT: 317.65 msMV E Emanuel: | | 0.57 m/sMV E/A Ratio: 0.85E/E' Sept: 11.69E' Lat: 0.08 m/sE' Sept: 0.04 m/sRAP: | | 5 mmHgRV S': 0.12 m/sRVSP: 25.91 mmHgTR maxP.91 mmHgTR Vmax: 2.28 m/s | | Video Engineer:Authenticated by: Cici Robles Date/Time: 02-21-2019 19:5:14 | [...] A Emanuel: 0.67 m/s | |MV Dec [place]: 1.81 m/s2 | |MV DecT: 317.65 ms | |MV E Emanuel: 0.57 m/s | |MV E/A Ratio: 0.85 | |E/E' Sept: 11.69 | |E' Lat: 0.08 m/s | |E' Sept: 0.04 m/s | |RAP: 5 mmHg | |RV S': 0.12 m/s | |RVSP: 25.91 mmHg | |TR maxP.91 mmHg | |TR Vmax: 2.28 m/s | | | |Video Engineer: | |Authenticated by: Cici Abraham | |Report [...]
--- OUTSIDE RECORDS SUMMARY | ~2019-10-15 | XMS | Encounter Summary ---
Demographics + + + | Address | [address] | | | [place] [address] | + + + | Home Phone | | + + + | Preferred Language | Unknown | + + + | Marital Status | | + + + | Cheondoism Affiliation | Unknown | + + + | Race | Unknown | + + + | Ethnic Group | Unknown | + + + Author + + + | Author | [facility] | | | and [place] | + + + | Organization | [facility] | | [...] Team Providers + +------+ + | Care Furs Salesperson Name | Role | Phone | + +------+ + | Lizette Martinez | PCP | | + +------+ + Encounter Details +--------+ + + + + | Date | Type | Department | Care Team | Description | +--------+ + + + + | 08/26/ | Hospital | [facility] | Phong Tyson, | | | 2018 | Encounter | MEDICAL CENTER POC | [address] | | | | | [address] | [address] | | | | | [address] | [place] [address] | | | | | [place], [place] | [phone] | | | | | [address] | | | | | | [phone] | | | +--------+ + + + [...] 780 | | | | | | [facility] [address] | | | | | | [place] [address] | | | | | | [phone] | | | | | | | [...] + + documented in this encounter Results STORED IMAGE GENERAL SURGERY (08/26/2019 12:03 PM [...]
--- OUTSIDE RECORDS SUMMARY | ~2019-10-15 | XMS | Encounter Summary ---
Demographics + + + | Address | [address] | | | [place] [address] | + + + | Home Phone | | + + + | Preferred Language | Unknown | + + + | Marital Status | | + + + | Anabaptist Affiliation | Unknown | + + + | Race | Unknown | + + + | Ethnic Group | Unknown | + + + Author + + + | Author | [facility] | | | and [place] | + + + | Organization | [facility] | | | [...] Team Providers + +------+ + | Care District Home Economics Agent Name | Role | Phone | [...] + + | 09/05/ | Navigation | [facility] | Alva See | | | 2019 | Services | HEMATOLOGY AND | JAIME Persaud | | | | | ONCOLOGY [address] | | | | | | [address] | | | | | | [place] | | | | | | [address] | | | | | | [phone] | | | +--------+ + + + [...] documented as of this encounter Progress Alva Crsos, RN - 09/05/2019 10:11 AM [facility] has been asked by Cristian Adam to refer pt to local oncologist near his home in [place], [place]. Referral entered for Dr Paras crowell, but referral must come from pcp due to insurance requirement. I placed call to pc p's office (Lizette Martinez) and left voicemail for patient resident care associate, Nanda self need for urgent referral due [...] | | | | | | [facility] [address] | | | | | | [place] [address] | | | | | | [phone] | | | | | | | | +--------+---------+ + + + documented as of this encounter Visit Diagnoses Not on filedocumented in this encounter"
--- OUTSIDE RECORDS SUMMARY | ~2019-10-15 | XMS | Encounter Summary ---
Demographics + + + | Address | [address] | | | [place] [address] | + + + | Home Phone | | + + + | Preferred Language | Unknown | + + + | Marital Status | | + + + | Alevism Affiliation | Unknown | + + + | Race | Unknown | + + + | Ethnic Group | Unknown | + + + Author + + + | Author | [facility] | | | and [place] | + + + | Organization | [facility] | | | and [...] Team Providers + +------+ + | Care Court Bailiff Name | Role | Phone | + [...] + + | 08/26/ | Anesthesia | [facility] | Judson Mcmullen | | | 2019 | Event [facility] | [address] | | | | | [address] | [address] | | | | | [address] | [place] [address] | | | | | [place], [place] | [phone] | | | | | [address] | | | | | | [phone] | | | +--------+ + + + [...] [address] | | | | | | [place] [address] | | | | | | [phone] | | | | | | | [...]
--- OUTSIDE RECORDS SUMMARY | ~2019-10-15 | XMS | Encounter Summary ---
Demographics + + + | Address | [address] | | | [place] [address] | + + + | Home Phone | | + + + | Preferred Language | Unknown | + + + | Marital Status | | + + + | Judaism Affiliation | Unknown | + + + | Race | Unknown | + + + | Ethnic Group | Unknown | + + + Author + + + | Author | [facility] | | | and [place] | + + + | Organization | [facility] | | [...] Team Providers + +------+ + | Care Truck Service Technician Name | Role | Phone | + +------+ + | Lizette Martinez | PCP | | + +------+ + Encounter Details +--------+ + + + + | Date | Type | Department | Care Team | Description | +--------+ + + + + | 08/26/ | Hospital | [facility] | Phong Tyson, | | | 2018 | Encounter | MEDICAL CENTER POC | [address] | | | | | [address] | [address] | | | | | [address] | [place] [address] | | | | | [place], [place] | [phone] | | | | | [address] | | | | | | [phone] | | | +--------+ + + + [...] [address] | | | | | | [facility] [address] | | | | | | [place] [address] | | | | | | [phone] | | | | | | | [...]
--- OUTSIDE RECORDS SUMMARY | ~2019-10-15 | XMS | Encounter Summary ---
Demographics + + + | Address | [address] | | | [place] [address] | + + + | Home Phone | | + + + | Preferred Language | Unknown | + + + | Marital Status | | + + + | Faith Affiliation | Unknown | + + + | Race | Unknown | + + + | Ethnic Group | Unknown | + + + Author + + + | Author | [facility] | | | and [place] | + + + | Organization | [facility] | | [...] Team Providers + +------+ + | Care Quality Process Auditor Name | Role | Phone | + [...] | / Cardiology | done sah | [address] | EVENT DECORATOR AND DESIGNER [address] | | | | | Procedures | SARAH BLACKMON | LISETH COLVIN | | | | | OFFICE VISIT | [place] | [address] | | | | | REGULAR | [place] [address] | [facility] | | | | | | Phone: | [address] Phone: | | | | | | [phone] | [phone] | | | | | | Fax: | Fax: | | | | | | [phone] | [phone] | +--------+--------+ + + + + Encounter Details +--------+---------+ + + + | Date | Type | Department | Care Team | Description | +--------+---------+ + + + | 07/10/ | Office | [facility] | Naina Judd | Essential | | 2019 | Visit | CARDIOLOGY [place] | [address] | hypertension | | | | [address] | [place] | (Primary Dx); Chest | | | | [address] | [place] [address] | pressure; Mixed | | | | [place], [place] | [phone] | hyperlipidemia; | | | | [address] | | Tobacco abuse | | | | [phone] | | | +--------+---------+ + + + [...] and 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 He previously had a normal echo performed at [facility] Dr. Barahona ordered him a stress [...] use. Exercises with and tolerates. Lives in [place] [facility] Medications Prior to Visit Medication Sig [...] with PAC's. 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 Problem list. Erika WALKER [facility] 07/10/2019 docume ntmarquita in this encounter [...] [address] | | | | | | [place] [address] | | | | | | [phone] | | | | | | | [...]
--- OUTSIDE RECORDS SUMMARY | ~2019-10-15 | XMS | Clinical Summary ---
Demographics + + + | Address | [address] | | | [place] [address] | + + + | Home Phone [...] + + + | Author | [facility] (Historical as of | | | 05-20-19) | + + + | Organization | [facility] (Historical as of | | | 05-20-19) [...] Team Providers + +------+ + | Care Head Well Puller Name | Role | Phone | + [...] | | + +--------+ +------+-------+ + | /[facility] | YELLOW | [id number] | | | | | PLANS | [place] | | | | | + +--------+ +------+-------+ + | MEDICARE | MEDICA | [id number] | | | [address] | | | RE | | | | [place] [address] | | | IP-OP | | | [...] | Self [birth year] Home: | [address] | | | al/Fam | | 1941 | [phone] [place] [address] | | | tunde | | | [phone] | | + +--------+ +--------+ + +
--- OUTSIDE RECORDS SUMMARY | ~2019-10-15 | XMS | Encounter Summary ---
Demographics + + + | Address | [address] | | | [place] [address] | + + + | Home Phone | | + + + | Preferred Language | Unknown | + + + | Marital Status | | + + + | Quaker Affiliation | Unknown | + + + [...] Team Providers + +------+ + | Care Photographer Lithographic Name | Role | Phone | + [...] Trung AYALA | | | | | [phone] | [place] [address] | | +--------+ + + + + [...] | 2019 | Visit | | [address] | | | | | | [address] | | | | | | [place] [address] | | | | | | [phone] | | | | | | | [...]
--- OUTSIDE RECORDS SUMMARY | ~2019-10-15 | XMS | Encounter Summary ---
Demographics + + + | Address | [address] | | | [place] [address] | + + + | Home Phone [...] Team Providers + +------+ + | Care Automotive Porter Name | Role | Phone | + [...] [place] | | | | | | [address] | (Fax) | | | | | [phone] | | | +--------+ + + + [...] [address] | | | | | | [place] [address] | | | | | | [phone] | | | | | | | | +--------+---------+ + + + documented as of this encounter Visit Diagnoses Not on filedocumented in this encounter"
--- OUTSIDE RECORDS SUMMARY | ~2019-10-15 | XMS | Encounter Summary ---
Demographics + + + | Address | [address] | | | [place] [address] | + + + | Home Phone [...] Providers + +------+ + | Care Medical Laboratory Specialist Name | Role | Phone | + +------+ + | Lizette Martinez | PCP | | + +------+ + Encounter Details +--------+ + + + + | Date | Type | Department | Care Team | Description | +--------+ + + + + | 09/21/ | Documentati | [facility] | Jair, | | | 2019 | on | GENERAL SURGERY [address] | [address] | | | | | [address] | [address] | | | | | [facility] [place] | [place] [address] | | | | | [address] | [phone] | | | | | [phone] | | | +--------+ + + + [...] of this encounter Progress Notes Marija Mabry, Collections Rep - 09/21/2019 9:02 AM PSTReferral to [facility] are sent via fax. Confirmation [...] | | | | | [place] [address] | | | | | | [phone] | | | | | | | | +--------+---------+ + + + documented as of this encounter Visit Diagnoses Not on filedocumented in this encounter"
--- OUTSIDE RECORDS SUMMARY | ~2019-10-15 | XMS | Encounter Summary ---
Demographics + + + | Address | [address] | | | [place] [address] | + + + | Home Phone | | + + + | Preferred Language | Unknown | + + + | Marital Status | | + + + | Yazidism Affiliation | Unknown | + + + | Race | Unknown | + + + | Ethnic Group | Unknown | + + + Author + + + | Author | [facility] | | | and [place] | + + + | Organization | [facility] | | | [...] Team Providers + +------+ + | Care Police Communications Operator Name | Role | Phone | + +------+ + | Lizette Martinez | PCP | | + +------+ + Encounter Details +--------+ + + + + | Date | Type | Department | Care Team | Description | +--------+ + + + + | 09/21/ | Documentati | [facility] | Jair, | | | 2019 | on | GENERAL SURGERY [address] | [address] | | | | | [address] | [address] | | | | | [facility] [place] [place] | [place] [address] | | | | | [address] | [phone] | | | | | [phone] | | | +--------+ + + + [...] of this encounter Progress Notes Marija Mabry, Embedded Software Developer - 09/21/2019 9:02 AM PSTReferral to [facility] are sent [facility] fax. Confirmation [...] | | | | | [place] [address] | | | | | | [phone] | | | | | | | | +--------+---------+ + + + documented as of this encounter Visit Diagnoses Not on filedocumented in this encounter"
--- OUTSIDE RECORDS SUMMARY | ~2019-10-15 | XMS | Encounter Summary ---
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
--- OUTSIDE RECORDS SUMMARY | ~2019-10-15 | XMS | Encounter Summary ---
Demographics + + + | Address | [address] | | | [place] [address] | + + + | Home Phone | | + + + | Preferred Language | Unknown | + + + | Marital Status | | + + + | Spiritism Affiliation | Unknown | + + + [...] Team Providers + +------+ + | Care Cleaner Carpet And Upholstery Name | Role | Phone | + [...] Trung AYALA | | | | | [phone] | [place] [address] | | +--------+ + + + + [...] [address] | | | | | | [place] [address] | | | | | | [phone] | | | | | | | [...]
--- OUTSIDE RECORDS SUMMARY | ~2019-10-15 | XMS | Encounter Summary ---
Demographics + + + | Address | [address] | | | [place] [address] | + + + | Home Phone | | + + + | Preferred Language | Unknown | + + + | Marital Status | | + + + | Mormonism Affiliation | Unknown | + + + | Race | Unknown | + + + | Ethnic Group | Unknown | + + + Author + + + | Author | [facility] | | | and [place] | + + + | Organization | [facility] | | | [...] Team Providers + +------+ + | Care Director Of Outreach Name | Role | Phone | + [...] + + | 08/26/ | Surgery | [facility] | Phong Tyson, | LAPAROSCOPIC | | 2019 | | [facility] | [address] | COLOSTOMY CREATION | | | | OPERATING ROOM [address] | [address] | | | | | [address] | [place] [address] | | | | | [place], [place] | [phone] | | | | | [address] | | | | | | [phone] | | | +--------+---------+ + + + [...] Barker MD - 08/30/2019 2:35 PM PST [facility] Service: Hospitalist Physician Discharge Summary Patient ID: Arlene WALKERN: [id number] 1940 78 y.o. Admit date: 08/25/2019 Discharge [...] SNF placemen t. He was accepted at [facility]. Referral to a local oncologist was sent. [...] input(s): ABG Disposition: Follow up: GRIFFIN Royal [address] [facility] [address] Go on 09/11/2019 You have an appointment at 0930 on 09/11/2019 with Lizette MOYA [address] [address] Phong Tyson MD [address] [place] [address] Schedule an appointment as soon as possible [...] Gonzalez RN - 08/29/2019 2:04 PM PST [facility] Service: Ostomy Care Consult Note Hospital Day: 4 SUBJECTIVE Patient Summary: Ostomy nurse in for continued teaching. Family at bedside. 08/29/19 5737 Visit Information Visit Type Initial ostomy/fistula assessement [...] is to return [facility] for return [facility]. [facility]. CM has c ontacted patient's PCP and they will work with DME to get his ostomy supplies. Ostomy RX fo rm filled out with patient's specific ostomy appliances and JOSE MARIA has faxed this to the PCP. P joey is to provide patient with enough pouching supplies to last 2 weeks (until his post-op a ppointment) [facility] starter kit ordered with pt's permission # [id number] Thank you for allowing me to participate in the care of this patient. Soledad Berger RN, CWON 08/29/2019 14:04 Jasmin Herrmann MD - 08/29/2019 1:18 PM PSTFormatting of this note might be different from the or iginal. [facility] Service: Hospitalist Progress Note Hospital [...] Rojas 78 y.o. 1940 Med. Record Number: [id number] Date of admission: 08/25/2019 Service(s): Colorectal Surgery [...] nursing note reviewed. Exam conducted with a clinical writer present. Cardiovascular: Rate and Rhythm: Normal rate. [...] with heme/onc, either Dr Malik here in [facility] or supposedly there is a heme/onc Dr in the [facility] (where they live). HTN BP's remain low-normal [...] BMI 28.00 kg/m Physical exam: AOx3 NAD [facility] [place] Heart RRR Lungs CTa Abd SNTND +BS Ostomy has stool output Giuliano Villaseñor DO 08/28/2019 2:50 PM Sree Smith ARN P - 08/28/2019 8:17 AM PST Colorectal Surgery Progress Note Pt. Name/Age/: Arlene Rojas 78 y.o. 1940 Med. Record Number: [id number] Date of admission: 08/25/2019 Service(s): Colorectal Surgery [...] nursing note reviewed. Exam conducted with a clinical writer present. Cardiovascular: Rate and Rhythm: Normal rate. [...] Encourage ambulation 2. General diet ok 3. email operations manager consult and teaching AARON Bull 11:50 AM; [...] BMI 28.00 kg/m Physical exam: NAD AOx3 [place] [place] Heart RRR Lungs CTA Abd SNTND +BS [...] BMI 28.00 kg/m Physical exam: AOx3 NAD [place] [place] Heart RRR Lungs CTA Abd SNTND ostomy [...] Larsen RN 08/26/19 @7:47 AM Valentín Navarro [facility] - 08/25/2019 7:41 PM PSTRx Admission Medication History Note I have reviewed the medication history for appropriate doses obtained by: ED Pharmacist After reviewing the home medication list : I agree with the home medications list. Confirmed GERMINATION WORKER medications with patient and insurance fill history. Adjusted GERMINATION WORKER medications according to the cardiopulmonary technician and eeg tech note below. - removed lopermaide. Per family [...] [address] | | | | | | [place] [address] | | | | | | [phone] | | | | | | | [...] J?MRN: | | | | | | [id number] | | | [id number] | | | riteri | | | [...] | | | St. | | | [place] | | | y | | | [...] | | | St. | | | [place] | | | y H. | | [...] | | | St. | | | [place] | | | y H. | | [...] | | | 1-103a | | | s1262l | | | 41 | | | [...] | >60Comment: GFR <60: | >60 | [facility] | | | GFR | CHRONIC [...] | | | | | | MDRD IDKY traceable | | | | | | equation.Testing | | | | | | performed at [facility], [address] | | | | | | [facility], | | | | | | [place] [address] | | | | + + + + + + + + | Specimen | + + | Blood | + + + + + + + | Performing | Address | City/State/Zipcode | Phone Number | | Organization | | | | + + + + + | [facility] | [address] | [place] [address] | [phone] | + + + + + CBC with Differential (08/30/2019 4:29 AM PST) + + + + + + | Component | Value | Ref Range | Performed | Pathologist | | | | | At | Signature | + + + + + + | WBC | 8.15 | 3.80 - 11.00 | [facility] | | | | | K/uL | [...] 0.04Comment: Testing | 0.00 - 0.10 | [facility] | | | Absolute | performed at [facility], [address] | K/uL | LABORATORY | | | | [address], | | | | | | [place] [address] | | | | + + + + + + + + | Specimen | + + | Blood | + + + + + + + | Performing | Address | City/State/Zipcode | Phone Number | | Organization | | | | + + + + + | [facility] | [address] | [place] [address] | [phone] | + + + + + Phosphorus (08/29/2019 4:53 AM PST) + + + + + + | Component | Value | Ref Range | Performed | Pathologist | | | | | At | Signature | + + + + + + | Phosphorus | 3.0Comment: Testing | 2.3 - 4.8 mg/dL | [facility] | | | | performed at [facility];[address] | | LABORATORY | | | | [address] [address];[place], [place] | | | | | | [address] | | | | + + + + + + + + | Specimen | + + | Blood | + + + + + + + | Performing | Address | City/State/Zipcode | Phone Number | | Organization | | | | + + + + + | [facility] | [address] | [place] [address] | [phone] | + + + + + Magnesium (08/29/2019 4:53 AM PST) + + + + + + | Component | Value | Ref Range | Performed | Pathologist | | | | | At | Signature | + + + + + + | Magnesium | 1.7Comment: Testing | 1.7 - 2.4 mg/dL | [facility] | | | | performed at [facility];[address] | | LABORATORY | | | | [address];[place], [place] | | | | | | [address] | | | | + + + + + + + + | Specimen | + + | Blood | + + + + + + + | Performing | Address | City/State/Zipcode | Phone Number | | Organization | | | | + + + + + | [facility] | [address] [facility] | [place] [address] | [phone] | + + + + + Basic [...] performed at [facility] | | | | | | [facility];[place], [place] | | | | | | [address] | | | | + + + + + + + + | Specimen | + + | Blood | + + + + + + + | Performing | Address | City/State/Zipcode | Phone Number | | Organization | | | | + + + + + | [facility] | [address] | [place] [address] | [phone] | + + + + + CBC [...] | LABORATORY | | | | [address];[place] | | | | | | [address] | | | | + + + + + + + + | Specimen | + + | Blood | + + + + + + + | Performing | Address | City/State/Zipcode | Phone Number | | Organization | | | | + + + + + | [facility] | [address] | [place] [address] | [phone] | + + + + + POC Glucose (08/28/2019 4:41 PM PST) + + + + + + | Component | Value | Ref Range | Performed | Pathologist | | | | | At | Signature | + + + + + + | Glucose, | 103 (H)Comment: Testing | 65 - 99 mg/dL | [facility] | | | POC | performed at [facility];[address] | | LABORATORY | | | | [address];[place], [place] | | | | | | [address] | | | | + + + + + + + + | Specimen | + + | | + + + + + + + | Performing | Address | City/State/Zipcode | Phone Number | | Organization | | | | + + + + + | [facility] | [address] | [place] [address] | [phone] | + + + + + POC [...] | LABORATORY | | | | [address], [place] | | | | | | [address] | | | | + + + + + + + + | Specimen | + + | | + + + + + + + | Performing | Address | City/State/Zipcode | Phone Number | | Organization | | | | + + + + + | [facility] | [address] | [place] [address] | [phone] | + + + + + POC [...] [place] | | | | | | [address] | | | | + + + + + + + + | Specimen | + + | | + + + + + + + | Performing | Address | City/State/Zipcode | Phone Number | | Organization | | | | + + + + + | [facility] | [address] | [place] [address] | [phone] | + + + + + Phosphorus (08/28/2019 4:18 AM PST) + + + + + + | Component | Value | Ref Range | Performed | Pathologist | | | | | At | Signature | + + + + + + | Phosphorus | 2.1 (L)Comment: Testing | 2.3 - 4.8 mg/dL | [facility] | | | | performed at L, [address] | | LABORATORY | | | | [address], | | | | | | [place] [address] | | | | + + + + + + + + | Specimen | + + | Blood | + + + + + + + | Performing | Address | City/State/Zipcode | Phone Number | | Organization | | | | + + + + + | [facility] | [address] | [place] [address] | [phone] | + + + + + Magnesium (08/28/2019 4:18 AM PST) + + + + + + | Component | Value | Ref Range | Performed | Pathologist | | | | | At | Signature | + + + + + + | Magnesium | 2.0Comment: Testing | 1.7 - 2.4 mg/dL | [facility] | | | | performed at [facility], [address] | | LABORATORY | | | | [address], | | | | | | [place] [address] | | | | + + + + + + + + | Specimen | + + | Blood | + + + + + + + | Performing | Address | City/State/Zipcode | Phone Number | | Organization | | | | + + + + + | [facility] | [address] | [place] [address] | [phone] | + + + + + Basic [...] | >60Comment: GFR <60: | >60 | [facility] | | | GFR | CHRONIC [...] | | | | | performed at [facility], [address] | | | | | | [facility], | | | | | | [place] [address] | | | | + + + + + + + + | Specimen | + + | Blood | + + + + + + + | Performing | Address | City/State/Zipcode | Phone Number | | Organization | | | | + + + + + | [facility] | [address] | [place] [address] | [phone] | + + + + + CBC [...] | | | Absolute | performed at [facility], [address] | K/uL | LABORATORY | | | | [address], | | | | | | [place] [address] | | | | + + + + + + + + | Specimen | + + | Blood | + + + + + + + | Performing | Address | City/State/Zipcode | Phone Number | | Organization | | | | + + + + + | [facility] | [address] | [place] [address] | [phone] | + + + + + POC Glucose (08/27/2019 8:35 PM PST) + + + + + + | Component | Value | Ref Range | Performed | Pathologist | | | | | At | Signature | + + + + + + | Glucose, | 129 (H)Comment: Testing | 65 - 99 mg/dL | [facility] | | | POC | performed at [facility];[address] | | LABORATORY | | | | [address];[place] | | | | | | [address] | | | | + + + + + + + + | Specimen | + + | | + + + + + + + | Performing | Address | City/State/Zipcode | Phone Number | | Organization | | | | + + + + + | [facility] | [address] | [place] [address] | [phone] | + + + + + POC Glucose (08/27/2019 12:05 PM PST) + + + + + + | Component | Value | Ref Range | Performed | Pathologist | | | | | At | Signature | + + + + + + | Glucose, | 99Comment: Testing | 65 - 99 mg/dL | [facility] | | | POC | performed at [facility];[address] | | LABORATORY | | | | [address];[place], [place] | | | | | | [address] | | | | + + + + + + + + | Specimen | + + | | + + + + + + + | Performing | Address | City/State/Zipcode | Phone Number | | Organization | | | | + + + + + | [facility] | [address] | [place] [address] | [phone] | + + + + + POC [...] | LABORATORY | | | | [address];[place] | | | | | | [address] | | | | + + + + + + + + | Specimen | + + | | + + + + + + + | Performing | Address | City/State/Zipcode | Phone Number | | Organization | | | | + + + + + | [facility] | [address] | [place] [address] | [phone] | + + + + + Phosphorus (08/27/2019 5:10 AM PST) + + + + + + | Component | Value | Ref Range | Performed | Pathologist | | | | | At | Signature | + + + + + + | Phosphorus | 3.8Comment: Testing | 2.3 - 4.8 mg/dL | [facility] | | | | performed at [facility], [address] | | LABORATORY | | | | [address], | | | | | | [place] [address] | | | | + + + + + + + + | Specimen | + + | Blood | + + + + + + + | Performing | Address | City/State/Zipcode | Phone Number | | Organization | | | | + + + + + | [facility] | [address] | [place] [address] | [phone] | + + + + + Magnesium (08/27/2019 5:10 AM PST) + + + + + + | Component | Value | Ref Range | Performed | Pathologist | | | | | At | Signature | + + + + + + | Magnesium | 2.2Comment: Testing | 1.7 - 2.4 mg/dL | [facility] | | | | performed at [facility], [address] | | LABORATORY | | | | [address], | | | | | | [place] [address] | | | | + + + + + + + + | Specimen | + + | Blood | + + + + + + + | Performing | Address | City/State/Zipcode | Phone Number | | Organization | | | | + + + + + | [facility] | [address] | [place] [address] | [phone] | + + + + + Basic [...] | | | | | performed at [facility], [address] | | | | | | [address], | | | | | | [place] [address] | | | | + + + + + + + + | Specimen | + + | Blood | + + + + + + + | Performing | Address | City/State/Zipcode | Phone Number | | Organization | | | | + + + + + | [facility] | [address] | [place] [address] | [phone] | + + + + + CBC [...] at | | | | | | [facility], [address] [facility] | | | | | | [place] | | | | | | [address] | | | | + + + + + + + + | Specimen | + + | Blood | + + + + + + + | Performing | Address | City/State/Zipcode | Phone Number | | Organization | | | | + + + + + | [facility] | [address] | [place] [address] | [phone] | + + + + + POC Glucose (08/27/2019 4:06 AM PST) + + + + + + | Component | Value | Ref Range | Performed | Pathologist | | | | | At | Signature | + + + + + + | Glucose, | 81Comment: Testing | 65 - 99 mg/dL | [facility] | | | POC | performed at [facility];[address] | | LABORATORY | | | | [address];[place], [place] | | | | | | [address] | | | | + + + + + + + + | Specimen | + + | | + + + + + + + | Performing | Address | City/State/Zipcode | Phone Number | | Organization | | | | + + + + + | [facility] | [address] | [place] [address] | [phone] | + + + + + POC [...] | | | | [address];[place], [place] | | | | | | [address] | | | | + + + + + + + + | Specimen | + + | | + + + + + + + | Performing | Address | City/State/Zipcode | Phone Number | | Organization | | | | + + + + + | [facility] | [address] | [place] [address] | [phone] | + + + + + Surgical [...] | rectum (see [id number]). As part of [employer]' Quality | | | Improvement Program, this [...] surfaceis barker-yellow and lobulated. | | | Pediatric Critical Care Nurse sections are submitted in cassette (A1). B. [...] is barker-yellow and | | | lobulated. Pediatric Critical Care Nurse sections are submitted incassette (B1). | | [...] component was performed | | | by [facility] [address] (Medical | | | Director: Yenny Young MD; CLIA# [id number]). Professional | | | [facility] | | | [address] [address] (Medical | | | Director: Kenyon Delacruz M.D.; CLIA#: [id number]). REASON FOR | | | ADDENDUM:Results of [...] | | preparation) was performed at [employer] pathology [facility]. | | | Interpretation was performed at [facility]. | | | Immunohistochemical studies and/or special stains were performed on | | | this case with the appropriate controls, which stain appropriately. | | | These tests were developed and their performance characteristics | | | determined by [facility] and/or [employer] [facility]. These tests | | | may have not been cleared or approved by the U.S. Food and Drug | | | Administration. The FDA has determined that suchclearance or | | | approval is not necessary. [facility] and [employer] are certified | | | under the [...] designed to | | | detect V600E ([id number]). Some non-V600E mutations, V600K, V600D, and | [...] | analysis test have been determined by [employer], [address] | | [address] [place], [place],but have not been cleared or approved [...] | | analysis tests were performed at [employer], [address] [place] [address] Av | | | [address] [place] [address] (Cushion Cover Inspector: Gaudencio Lira MD; IA# | | | [id number]). REASON FOR ADDENDUM:This case is addended for the | | | addition of BRAF and KRAS Mutation Analysis results. ADDENDUM | | | PATHOLOGIC DIAGNOSIS:[id number], [id number] BIOPSY: Mutation DETECTED | | | - [...] colorectal cancer. J Clin Oncol 2008; 26(35): 7955-9528. doi: | | | 10.1200/JCO.2008.18.24292. Arnel IG, Alexis M, Boateng M, et al. | | | Wild-type KRAS is required for panitunumab efficacy in patients with | | | metastatic colorectal cancer. J Clin Oncol 2008; 26:1755-3318. | | | doi:10.1200/JCO.2007.14.54880. Gilda PATTON, Cheli MENDOZA, Ean A, et | | | al. Extended TAO mutations and anti-EGFR monoclonal antibody survival | | | benefit in metastatic colorectal cancer: a meta-analysis of | | | randomized, controlled trials.Annals of Oncol 2014; 26(1): 13-21. doi: | | | 10.1093/annonc/fhz990 4. Navi HERMOSILLO, Melissa RODRIGUEZ. KRAS | | | Mutation: Should We Test for It, and Does It Matter? J Clin Oncol | | | 2013; 31:1511-5721. doi: 10.1200/JCO.2012.43.0454 ADDENDUM CLINICAL | | | [...] | | paraffin tissue block B1, numbered [id number], belonging to patient | | | ARLENE ROJAS. Diagnostician: Nicanor Elias | | | DOPathologistDiagnostician: Kenyon Delacruz | | | MDPathologistDiagnostician: Prieto Brito MT([facility]) | | | MBPathologistDiagnostician: Demi Bearden MD [...] | | LABORATORY | | | | [address]vd;[place] [address] | | | | + + + + + + + + | Specimen | + + | Blood | + + + + + + + | Performing | Address | City/State/Zipcode | Phone Number | | Organization | | | | + + + + + | [facility] | [address] | [place] [address] | [phone] | + + + + + Protime INR (08/26/2019 4:25 AM PST) + + + + + + | Component | Value | Ref Range | Performed | Pathologist | | | | | At | Signature | + + + + + + | INR | 1.1Comment: REFERENCE | | [facility] | | | | RANGE:0.9 - [...] performed at [facility];[address] | | | | | | [facility];[place], [place] | | | | | | [address] | | | | + + + + + + + + | Specimen | + + | Blood | + + + + + + + | Performing | Address | City/State/Zipcode | Phone Number | | Organization | | | | + + + + + | [facility] | [address] | [place] [address] | [phone] | + + + + + Ferritin [...] | | | | | [place] [address] | | | | + + + + + + + + | Specimen | + + | Blood | + + + + + + + | Performing | Address | City/State/Zipcode | Phone Number | | Organization | | | | + + + + + | [facility] | [address] | [place] [address] | [phone] | + + + + + Iron [...] | | | | | [place] [address] | | | | + + + + + + + + | Specimen | + + | Blood | + + + + + + + | Performing | Address | City/State/Zipcode | Phone Number | | Organization | | | | + + + + + | [facility] | [address] | [place] [address] | [phone] | + + + + + CBC [...] [facility] | | | | performed at [facility], [address] | | LABORATORY | | | | [facility], | | | | | | [place] [address] | | | | + + + + + + + + | Specimen | + + | Blood | + + + + + + + | Performing | Address | City/State/Zipcode | Phone Number | | Organization | | | | + + + + + | [facility] | [address] | [place] [address] | [phone] | + + + + + Basic [...] | >60Comment: GFR <60: | >60 | [facility] | | | GFR | CHRONIC [...] | | | | | performed at [facility], [address] | | | | | | [facility], | | | | | | [place] [address] | | | | + + + + + + + + | Specimen | + + | Blood | + + + + + + + | Performing | Address | City/State/Zipcode | Phone Number | | Organization | | | | + + + + + | [facility] | [address] | [place] [address] | [phone] | + + + + + Urinalysis [...] - 1.030 | [facility] | | | [place], | | | LABORATORY | | | [...] UA | NONE SEENComment: | NONE | [facility] | | | | Testing performed at | | LABORATORY | | | | [facility];[address];[place] [address] | | | | + + + [...] | + + + + + | [facility] | [address] | [place] [address] | [phone] | + + + + + Comprehensive [...] | >60Comment: GFR <60: | >60 | [facility] | | | GFR | CHRONIC [...] performed at [facility];[address] | | | | | | [facility];[place], [place] | | | | | | [address] | | | | + + + + + + + + | Specimen | + + | Blood | + + + + + + + | Performing | Address | City/State/Zipcode | Phone Number | | Organization | | | | + + + + + | [facility] | [address] | [place] [address] | [phone] | + + + + + CBC [...] | LABORATORY | | | | [address];[place] | | | | | | [address] | | | | + + + + + + + + | Specimen | + + | Blood | + + + + + + + | Performing | Address | City/State/Zipcode | Phone Number | | Organization | | | | + + + + + | [facility] | [address] | [place] [address] | [phone] | + + + + + documented [...]
--- OUTSIDE RECORDS SUMMARY | ~2019-10-15 | XMS | Encounter Summary ---
Demographics + + + | Address | [address] | | | [place] [address] | + + + | Home Phone | | + + + | Preferred Language | Unknown | + + + | Marital Status | | + + + | Taoism Affiliation | Unknown | + + + | Race | Unknown | + + + | Ethnic Group | Unknown | + + + Author + + + | Author | [facility] | | | and [place] | + + + | Organization | [facility] | | | [...] Team Providers + +------+ + | Care Mechanical Shovel Operator Name | Role | Phone | [...] | / Cardiology | done sah | [address] | TRACK REPAIR SUPERVISOR [address] | | | | | Procedures | SARAH BLACKMON | LISETH COLVIN | | | | | OFFICE VISIT | [place] | [address] | | | | | REGULAR | [place] [address] | [facility] | | | | | | Phone: | [address] Phone: | | | | | | [phone] | [phone] | | | | | | Fax: | Fax: | | | | | | [phone] | [phone] | +--------+--------+ + + + + Encounter Details +--------+---------+ + + + | Date | Type | Department | Care Team | Description | +--------+---------+ + + + | 07/10/ | Office | [facility] | Naina Judd | Essential | | 2019 | Visit | CARDIOLOGY [place] | GRIFFIN Strickland [address] | hypertension | | | | [address] | [place] F | (Primary Dx); Chest | | | | [address] | [place] [address] | pressure; Mixed | | | | [place], [place] | [phone] | hyperlipidemia; | | | | [address] | | Tobacco abuse | | | | [phone] | | | +--------+---------+ + + + [...] and 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 He previously had a normal echo performed at [facility] Dr. Barahona ordered him a stress [...] use. Exercises with and tolerates. Lives in [place] [facility] Medications Prior to Visit Medication Sig [...] with PAC's. low voltage QRS 71 bpm, TX 122 ms, Q RS 74 ms, QTC 417 ms, tracing personally reviewed by me EK05/11/2019:Normal sinus rhythm, rate 71, TX 118 ms, QRS 68 ms, QTC 399, borderline carolynn rt TX interval, LAE, cannot exclude old inferior FL, age undetermined, low voltage QRS , tr [...] pneumonia vaccines, as also increase risk of FL I made no changes to cardiac medications [...] past surgical history. Problem list. Erika WALKER [facility] Cardiology 07/10/2019 docume ntmarquita in this [...] [address] | | | | | | [place] [address] | | | | | | [phone] | | | | | | | [...]
--- OUTSIDE RECORDS SUMMARY | ~2019-10-15 | XMS | Encounter Summary ---
Demographics + + + | Address | [address] | | | [place] [address] | + + + | Home Phone [...] Team Providers + +------+ + | Care Textile Cutting Machine Operator Name | Role | Phone [...] Trung AYALA | | | | | [phone] | [place] [address] | | +--------+ + + + + [...] [address] | | | | | | [place] [address] | | | | | | [phone] | | | | | | | [...]
--- OUTSIDE RECORDS SUMMARY | ~2019-10-15 | XMS | Encounter Summary ---
Demographics + + + | Address | [address] | | | [place] [address] | + + + | Home Phone | | + + + | Preferred Language | Unknown | + + + | Marital Status | | + + + | Latter Day Affiliation | Unknown | + + + | Race | Unknown | + + + | Ethnic Group | Unknown | + + + Author + + + | Author | [facility] | | | and [place] | + + + | Organization | [facility] | | | [...] Team Providers + +------+ + | Care Hospice Bereavement Coordinator Name | Role | Phone | [...] | Required | Oncology | Adenocarcino | [facility] | Paras Leach MD | | | | | ma of | [address] | [address] | | | | | rectosigmoid | [address] | [facility] | | | | | junction | [place] | [place] | | | | | (HCC) | [address] | [address] Phone: | | | | | | Phone: | [phone] | | | | | | [phone] | Fax: | | | | | | Fax: | [phone] | | | | | | [phone] | | + + + + + + + Encounter Details +--------+ + + + + | Date | Type | Department | Care Team | Description | +--------+ + + + + | 09/05/ | Orders Only | [facility] | Alva See | 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
--- OUTSIDE RECORDS SUMMARY | ~2019-10-15 | XMS | Encounter Summary ---
Demographics + + + | Address | [address] | | | [place] [address] | + + + | Home Phone [...] Team Providers + +------+ + | Care Property Analyst Name | Role | Phone | + +------+ + | Lizette Martinez | PCP | | + +------+ + Encounter Details +--------+ + + + + | Date | Type | Department | Care Team | Description | +--------+ + + + + | 09/05/ | Documentati | [facility] | Evelyne Gonzalez, | | | 2019 | on | GENERAL SURGERY [address] | Gravedigger | | | | | [address] | | | | | | [place] | | | | | | [address] | | | | | | [phone] | | | +--------+ + + + [...] of this encounter Progress Notes Evelyne Gonzalez Gravedigger - 09/05/2019 10:45 AM PSTPertinent medical records [...] [address] | | | | | | [place] [address] | | | | | | [phone] | | | | | | | | +--------+---------+ + + + documented as of this encounter Visit Diagnoses Not on filedocumented in this encounter"
--- OUTSIDE RECORDS SUMMARY | ~2019-10-15 | XMS | Encounter Summary ---
Demographics + + + | Address | [address] | | | [place] [address] | + + + | Home Phone | | + + + | Preferred Language | Unknown | + + + | Marital Status | | + + + | Tenriism Affiliation | Unknown | + + + | Race | Unknown | + + + | Ethnic Group | Unknown | + + + Author + + + | Author | [facility] | | | and [place] | + + + | Organization | [facility] | | [...] Team Providers + +------+ + | Care Med Spec Name | Role | Phone | + +------+ + | Lizette Martinez | PCP | | + +------+ + Encounter Details +--------+ + + + + | Date | Type | Department | Care Team | Description | +--------+ + + + + | 09/14/ | Abstract | [facility] | Miley Wright, | | | 2018 | | MED CTR MEDICAL | CONCRETE STONE FABRICATOR | | | | | ONCOLOGY CLINIC [address] | | | | | | [address] | | | | | | [place] [address] | | | | | | [phone] | | | +--------+ + + + [...] [address] | | | | | | [place] [address] | | | | | | [phone] | | | | | | | | +--------+---------+ + + + documented as of this encounter Visit Diagnoses Not on filedocumented in this encounter"
--- OUTSIDE RECORDS SUMMARY | ~2019-10-15 | XMS | Encounter Summary ---
Demographics + + + | Address | [address] | | | [place] [address] | + + + | Home Phone | | + + + | Preferred Language | Unknown | + + + | Marital Status | | + + + | Mormon Affiliation | Unknown | + + + | Race | Unknown | + + + | Ethnic Group | Unknown | + + + Author + + + | Author | [facility] | | | and [place] | + + + | Organization | [facility] | | [...] Providers + +------+ + | Care Utility Maintenance Worker Name | Role | Phone | [...] + + | 08/26/ | Anesthesia | [facility] | Judson Mcmullen | | | 2019 | Event [facility] | [address] | | | | | OPER[address] ROOM [address] | [address] | | | | | [address] | [place] [address] | | | | | [place], [place] | [phone] | | | | | [address] | | | | | | [phone] | | | +--------+ + + + [...] | | | | | Successful Technique: Cshilling; | | | | | Laryngoscope Blade [...] [address] | | | | | | [place] [address] | | | | | | [phone] | | | | | | | [...]
--- OUTSIDE RECORDS SUMMARY | ~2019-10-15 | XMS | Encounter Summary ---
Demographics + + + | Address | [address] | | | [place] [address] | + + + | Home Phone | | + + + | Preferred Language | Unknown | + + + | Marital Status | | + + + | Adventism Affiliation | Unknown | + + + [...] Team Providers + +------+ + | Care Four Corner Stayer Machine Operator Name | Role | Phone [...] Trung AYALA | | | | | [phone] | [place] [address] | | +--------+ + + + + [...] [address] | | | | | | [place] [address] | | | | | | [phone] | | | | | | | [...]
--- OUTSIDE RECORDS SUMMARY | ~2019-10-15 | XMS | Encounter Summary ---
Demographics + + + | Address | [address] | | | [place] [address] | + + + | Home Phone | | + + + | Preferred Language | Unknown | + + + | Marital Status | | + + + | Synagogue Affiliation | Unknown | + + + | Race | Unknown | + + + | Ethnic Group | Unknown | + + + Author + + + | Author | [facility] | | | and [place] | + + + | Organization | [facility] | | | [...] Providers + +------+ + | Care Dermatology Specialist Name | Role | Phone | [...] Care | Adenocarcino | Paras Leach, | [address] | | | | | ma of | MD [address] | | | | | rectosigmoid | [address] | [place], [place] | | | | | junction | [place], | [address] | | | | | ([facility]) | [place] [address] | Phone: | | | | | | Phone: | [phone] | | | | | | [phone] | Fax: | | | | | | Fax: | [phone] | | | | | | [phone] | | +--------+ + + + + [...] | Required | Oncology | Adenocarcino | TOOL AND DIE MAKER/DESIGNER [address] | Paras Leach MD | | | | | ma of | [address] | [address] | | | | | rectosigmoid | [address] | [address] [place] | | | | | junction | [place], [place] | [place], [place] | | | | | ([facility]) | [address] | [address] Phone: | | | | | | Phone: | [phone] | | | | | | [phone] | Fax: | | | | | | Fax: | [phone] | | | | | | [phone] | | + + + + + + + Encounter Details +--------+ + + + + | Date | Type | Department | Care Team | Description | +--------+ + + + + | 09/14/ | Hospital | [facility] | Pj, | Adenocarcinoma of | | 2019 | Encounter | MED CTR MEDICAL | Paras Leach MD [address] | rectosigmoid | | | | ONCOLOGY CLINIC [address] | [address] [place] | junction (HCC) | | | | [address] [place] | [place] [address] | | | | | [place] [address] | [phone] | | | | | [phone] | | | +--------+ + + + [...] | | | | | [place] [address] | | | | | | [phone] | | | | | | | [...]
--- OUTSIDE RECORDS SUMMARY | ~2019-10-15 | XMS | Encounter Summary ---
Demographics + + + | Address | [address] | | | [place] [address] | + + + | Home Phone | | + + + | Preferred Language | Unknown | + + + | Marital Status | | + + + | Church Affiliation | Unknown | + + + | Race | Unknown | + + + | Ethnic Group | Unknown | + + + Author + + + | Author | [facility] | | | and [place] | + + + | Organization | [facility] | | | [...] Team Providers + +------+ + | Care Inspector Repairer Sandstone Name | Role | Phone | + [...] Trung AYALA | | | | | [phone] | [place] [address] | | +--------+ + + + + [...] [address] | | | | | | [place] [address] | | | | | | [phone] | | | | | | | [...]
--- OUTSIDE RECORDS SUMMARY | ~2019-10-15 | XMS | Encounter Summary ---
Demographics + + + | Address | [address] | | | [place] [address] | + + + | Home Phone [...] Team Providers + +------+ + | Care Interface Engineer Name | Role | Phone | + [...] | | Required | | Adenocarcino | BOTTOM PAINTER [address] | [address] | | | | | ma of | [address] | [place], | | | | | rectosigmoid | [address] | [place] [address] | | | | | junction | [place], [place] | Phone: | | | | | ([facility]) | [address] | [phone] | | | | | | Phone: | Fax: | | | | | | [phone] | [phone] | | | | | | Fax: | | | | | | | [phone] | | + + + + + [...] | | Rectal | Colon mass | Emeteiro Godfrey, | Surgery [address] | | | | Surgery / | | [address] | | | | General | | Charlee Santamaria | [address] | | | | Surgery | | Vish, | [place], [place] | | | | | | [place] | [address] | | | | | | [address] | Phone: | | | | | | Phone: | [phone] | | | | | | [phone] | Fax: | | | | | | Fax: | [phone] | | | | | | [phone] | | + +--------+ + + + + Encounter Details +--------+---------+ + + + | Date | Type | Department | Care Team | Description | +--------+---------+ + + + | 09/20/ | Office | [facility] | Arabellacegabby, | Adenocarcinoma of | | 2019 | Visit | GENERAL SURGERY [address] | [address]ON [address] | rectosigmoid | | | | [address] | [address] | junction (HCC) | | | | [place], [place] | [place] [address] | (Primary Dx) | | | | [address] | [phone] | | | | | [phone] | | | +--------+---------+ + + + [...] Exam Wound closed yes Wound clean yes Bieber/Sutures no Hernia noted no Wound drainage no [...] [address] | | | | | | [facility] | | | | | | [place] [address] | | | | | | [phone] | | | | | | | [...]
--- OUTSIDE RECORDS SUMMARY | ~2019-10-15 | XMS | Encounter Summary ---
Demographics + + + | Address | [address] | | | [place] [address] | + + + | Home Phone [...] Team Providers + +------+ + | Care Bottom Sander Name | Role | Phone | + [...] [place] | | | | | | [address] | | | | | | [phone] | | | +--------+ + + + [...] | | | | | [place] [address] | | | | | | [phone] | | | | | | | [...] 0.67 m/s MV | | | Dec [place]: 1.81 m/s2 MV DecT: 317.65 ms MV E Emanuel: 0.57 m/s | | | MV E/A Ratio: 0.85 E/E' Sept: 11.69 E' Lat: 0.08 m/s E' | | | Sept: 0.04 m/s RAP: 5 mmHg RV S': 0.12 m/s RVSP: 25.91 | | | mmHg TR maxP.91 mmHg TR Vmax: 2.28 m/s Emt/Dispatcher: | | | Authenticated by: Cici Abraham [...] mlLAESV Index (A-L): 24.25 ml/m2LAAs A2C: 14.49 [id number] A-L A2C: 33.91 | | mlLAESV MOD A2C: 32.12 mlLALs A2C: 5.25 cmLAAs A4C: 19.79 [id number] A-L A4C: | | 58.12 mlLAESV MOD A4C: 57.48 mlLALs A4C: 5.72 cmRAAs: 18.17 [id number] A-L: 49.96 | | mlRAESV MOD: 49.15 mlRALs: 5.60 cmTAPSE: 2.19 cmAV Env.Ti: 293.90 msAV maxPG: | | 4.91 mmHgAV meanP.41 mmHgAV Vmax: 1.10 m/Milton Vmean: 0.72 m/Milton VTI: 21.23 | | cmAVA Vmax: 3.17 cm2AVA (VTI): 3.89 [id number] Vmax: 0.00 cm2/m2AVAI (VTI): 0.00 | | cm2/m2LVOT Env.Ti: 360.44 msLVOT maxP.14 mmHgLVOT meanP.50 mmHgLVSI Dopp: | | 43.29 ml/m2LVSV Dopp: 82.69 mlLVOT Vmax: 0.88 m/sLVOT Vmean: 0.57 m/sLVOT VTI: | | 20.85 cmMV A Emanuel: 0.67 m/sMV Dec [place]: 1.81 m/s2MV DecT: 317.65 msMV E Emanuel: | | 0.57 m/sMV E/A Ratio: 0.85E/E' Sept: 11.69E' Lat: 0.08 m/sE' Sept: 0.04 m/sRAP: | | 5 mmHgRV S': 0.12 m/sRVSP: 25.91 mmHgTR maxP.91 mmHgTR Vmax: 2.28 m/s | | Emt/Dispatcher:Authenticated by: Cici Robles Date/Time: 02-21-2019 19:5:14 | [...] A Emanuel: 0.67 m/s | |MV Dec [place]: 1.81 m/s2 | |MV DecT: 317.65 ms | |MV E Emanuel: 0.57 m/s | |MV E/A Ratio: 0.85 | |E/E' Sept: 11.69 | |E' Lat: 0.08 m/s | |E' Sept: 0.04 m/s | |RAP: 5 mmHg | |RV S': 0.12 m/s | |RVSP: 25.91 mmHg | |TR maxP.91 mmHg | |TR Vmax: 2.28 m/s | | | |Emt/Dispatcher: | |Authenticated by: Cici Abraham | |Report [...]
--- OUTSIDE RECORDS SUMMARY | ~2019-10-15 | XMS | Encounter Summary ---
Demographics + + + | Address | [address] | | | [place] [address] | + + + | Home Phone | | + + + | Preferred Language | Unknown | + + + | Marital Status | | + + + | Sikhism Affiliation | Unknown | + + + | Race | Unknown | + + + | Ethnic Group | Unknown | + + + Author + + + | Author | [facility] | | | and [place] | + + + | Organization | [facility] | | [...] Team Providers + +------+ + | Care Emergency Department Manager Name | Role | Phone | [...] + + | 08/25/ | Hospital | [facility] | Enio Lange, | Colorectal tumor | | 2019 - | Encounter | [facility] [address] | MD [address] | (Primary Dx); Rectal | | | | [address] | [place] [address] | obstruction; | | 08/30/ | | [place], [place] | [phone] | Colorectal tumor; | | 2019 | | [id number] | | Rectal obstruction; | | | | [phone] | Errol Mart MD | Anemia, unspecified | | | | | [address] | type; Essential | | | | | [place] [address] | hypertension | | | | | [phone] | | | | | | | | | | | | Giuliano Villaseñor, | | | | | | [address] | | | | | | [address] | | | | | | [place] [address] | | | | | | [phone] | | | | | | | | | | | | Jasmin Barker MD | | | | | | [address] | | | | | | [place] [address] | | | | | | [phone] | | | | | | | [...] Barker MD - 08/30/2019 2:35 PM PST [facility] Service: Hospitalist Physician Discharge Summary Patient ID: [...] for a rolling walker. He agreed for [facility] placemen t. He was accepted at [place]. Referral to a local oncologist was sent. He will follow up with surgery in 2 weeks. Past Medical History: Past Medical History: Diagnosis Date Hyperlipidemia Hypertension 2004 Tobacco abuse Past Surgical History: Procedure Laterality Date COLOSTOMY N/A 08/26/2019 Procedure: LAPAROSCOPIC COLOSTOMY CREATION; Surgeon: Phong Tyson MD; Location[facility] OTHER SURGICAL HISTORY Left 1984 ORIF ANKLE FRACTURE OTHER SURGICAL HISTORY Bilateral 2016 CATARACT EXTRACTION SIGMOIDOSCOPY N/A 08/26/2019 Procedure: SIGMOIDOSCOPY FLEXIBLE; Surgeon: Phong Tyson MD; Location: [facility] Discharged Condition: Stable for discharge [...] Invalid input(s): ABG Disposition: Follow up: GRIFFIN Royla [address] [address] [facility] [address] Go on 09/11/2019 You have an appointment at 0930 on 09/11/2019 with Lizette MOYA [address] [phone] Phong Tyson MD [address] [place] [address] Schedule an appointment as soon as possible [...] Gonzalez RN - 08/29/2019 2:04 PM PST [facility] Service: Ostomy Care Consult Note Hospital Day: [...] 2 weeks (until his post-op a ppointment) [facility] starter kit ordered with pt's permission # [id number] Thank you for allowing me to participate in the care of this patient. Soledad Berger RN, CWON 08/29/2019 14:04 Jasmin Herrmann MD - 08/29/2019 1:18 PM PSTFormatting of this note might be different from the or iginal. [facility] Service: Hospitalist Progress Note Hospital Day: LOS: [...] Rojas 78 y.o. 1940 Med. Record Number: [id number] Date of admission: 08/25/2019 Service(s): Colorectal Surgery [...] nursing note reviewed. 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 Cardiovascular: Rate and Rhythm: Normal rate. [...] there is a heme/onc Dr in the [facility] (where they live). HTN BP's remain low-normal [...] BMI 28.00 kg/m Physical exam: AOx3 NAD LITTLE TRAVERSE Heart RRR Lungs CTa Abd SNTND +BS Ostomy has stool output Giuliano Villaseñor DO 08/28/2019 2:50 PM Sree Smith ARN P - 08/28/2019 8:17 AM PST Colorectal Surgery Progress Note Pt. Name/Age/: Arlene Rojas 78 y.o. 1940 Med. Record Number: [id number] Date of admission: 08/25/2019 Service(s): Colorectal Surgery [...] nursing note reviewed. 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 Cardiovascular: Rate and Rhythm: Normal rate. [...] Encourage ambulation 2. General diet ok 3. 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 Confirmed LEAD ATHLETE medications with patient and insurance fill history. 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 - removed lopermaide. Per [...] [address] | | | | | | [place] [address] | | | | | | [phone] | | | | | | | [...] J?MRN: | | | | | | [id number] | | | [id number] | | | riteri | | | [...] | | | St. | | | [place] | | | y | | | [...] | | | St. | | | [place] | | | y H. | | [...] | | | St. | | | [place] | | | y H. | | [...] | | | 1-103a | | | [id number] | | | 41 | | | [...] | | | | | performed at [facility], [address] | | | | | | [facility], | | | | | | [place] [address] | | | | + + + + + + + + | Specimen | + + | Blood | + + + + + + + | Performing | Address | City/State/Zipcode | Phone Number | | Organization | | | | + + + + + | [facility] | [address] | [place] [address] | [phone] | + + + + + CBC [...] | | | Absolute | performed at [facility], [address] | K/uL | LABORATORY | | | | [address], | | | | | | [place] [address] | | | | + + + + + + + + | Specimen | + + | Blood | + + + + + + + | Performing | Address | City/State/Zipcode | Phone Number | | Organization | | | | + + + + + | [facility] | [address] | [place] [address] | [phone] | + + + + + Phosphorus (08/29/2019 4:53 AM PST) + + + + + + | Component | Value | Ref Range | Performed | Pathologist | | | | | At | Signature | + + + + + + | Phosphorus | 3.0Comment: Testing | 2.3 - 4.8 mg/dL | [facility] | | | | performed at [facility];[address] | | LABORATORY | | | | [address];[place], [place] | | | | | | [address] | | | | + + + + + + + + | Specimen | + + | Blood | + + + + + + + | Performing | Address | City/State/Zipcode | Phone Number | | Organization | | | | + + + + + | [facility] | [address] | [place] [address] | [phone] | + + + + + Magnesium (08/29/2019 4:53 AM PST) + + + + + + | Component | Value | Ref Range | Performed | Pathologist | | | | | At | Signature | + + + + + + | Magnesium | 1.7Comment: Testing | 1.7 - 2.4 mg/dL | [facility] | | | | performed at [facility] | | LABORATORY | | | | [facility];[place], [place] | | | | | | [address] | | | | + + + + + + + + | Specimen | + + | Blood | + + + + + + + | Performing | Address | City/State/Zipcode | Phone Number | | Organization | | | | + + + + + | [facility] | [address] | [place] [address] | [phone] | + + + + + Basic [...] >60Comment: GFR <60: | >60 | [facility] | | | GFR | [...] | | | | | performed at [facility];[address] | | | | | | [facility];[place], [place] | | | | | | [address] | | | | + + + + + + + + | Specimen | + + | Blood | + + + + + + + | Performing | Address | City/State/Zipcode | Phone Number | | Organization | | | | + + + + + | [facility] | [address] | [place] [address] | [phone] | + + + + + CBC [...] | | | Absolute | performed at [facility];[address] | [address] | LABORATORY | | | | [address];[place], [place] | | | | | | [address] | | | | + + + + + + + + | Specimen | + + | Blood | + + + + + + + | Performing | Address | City/State/Zipcode | Phone Number | | Organization | | | | + + + + + | [facility] | [address] | [place] [address] | [phone] | + + + + + POC [...] | | | POC | performed at [facility];[address] | | LABORATORY | | | | [address];[place], [place] | | | | | | [address] | | | | + + + + + + + + | Specimen | + + | | + + + + + + + | Performing | Address | City/State/Zipcode | Phone Number | | Organization | | | | + + + + + | [facility] | [address] | [place] [address] | [phone] | + + + + + POC Glucose (08/28/2019 12:11 PM PST) + + + + + + | Component | Value | Ref Range | Performed | Pathologist | | | | | At | Signature | + + + + + + | Glucose, | 101 (H)Comment: Testing | 65 - 99 mg/dL | [facility] | | | POC | performed at [facility];[address] | | LABORATORY | | | | [address];[place] | | | | | | [address] | | | | + + + + + + + + | Specimen | + + | | + + + + + + + | Performing | Address | City/State/Zipcode | Phone Number | | Organization | | | | + + + + + | [facility] | [address] | [place] [address] | [phone] | + + + + + POC Glucose (08/28/2019 8:48 AM PST) + + + + + + | Component | Value | Ref Range | Performed | Pathologist | | | | | At | Signature | + + + + + + | Glucose, | 98Comment: Testing | 65 - 99 mg/dL | [facility] | | | POC | performed at [facility];[address] | | LABORATORY | | | | [address];[place] | | | | | | [address] | | | | + + + + + + + + | Specimen | + + | | + + + + + + + | Performing | Address | City/State/Zipcode | Phone Number | | Organization | | | | + + + + + | [facility] | [address] | [place] [address] | [phone] | + + + + + Phosphorus (08/28/2019 4:18 AM PST) + + + + + + | Component | Value | Ref Range | Performed | Pathologist | | | | | At | Signature | + + + + + + | Phosphorus | 2.1 (L)Comment: Testing | 2.3 - 4.8 mg/dL | [facility] | | | | performed at [facility], [address] | | LABORATORY | | | | [address], | | | | | | [place] [address] | | | | + + + + + + + + | Specimen | + + | Blood | + + + + + + + | Performing | Address | City/State/Zipcode | Phone Number | | Organization | | | | + + + + + | [facility] | [address] | [place] [address] | [phone] | + + + + + Magnesium [...] | | | | | [place] [address] | | | | + + + + + + + + | Specimen | + + | Blood | + + + + + + + | Performing | Address | City/State/Zipcode | Phone Number | | Organization | | | | + + + + + | [facility] | [address] | [place] [address] | [phone] | + + + + + Basic [...] | | | | | performed at [facility], [address] | | | | | | [facility], | | | | | | [place] [address] | | | | + + + + + + + + | Specimen | + + | Blood | + + + + + + + | Performing | Address | City/State/Zipcode | Phone Number | | Organization | | | | + + + + + | [facility] | [address] | [place] [address] | [phone] | + + + + + CBC [...] | | | | | [place] [address] | | | | + + + + + + + + | Specimen | + + | Blood | + + + + + + + | Performing | Address | City/State/Zipcode | Phone Number | | Organization | | | | + + + + + | [facility] | [address] | [place] [address] | [phone] | + + + + + POC Glucose (08/27/2019 8:35 PM PST) + + + + + + | Component | Value | Ref Range | Performed | Pathologist | | | | | At | Signature | + + + + + + | Glucose, | 129 (H)Comment: Testing | 65 - 99 mg/dL | [facility] | | | POC | performed at [facility];[address] | | LABORATORY | | | | [address];[place] | | | | | | [address] | | | | + + + + + + + + | Specimen | + + | | + + + + + + + | Performing | Address | City/State/Zipcode | Phone Number | | Organization | | | | + + + + + | [facility] | [address] | [place] [address] | [phone] | + + + + + POC Glucose (08/27/2019 12:05 PM PST) + + + + + + | Component | Value | Ref Range | Performed | Pathologist | | | | | At | Signature | + + + + + + | Glucose, | 99Comment: Testing | 65 - 99 mg/dL | [facility] | | | POC | performed at [facility];[address] | | LABORATORY | | | | [address];[place], [place] | | | | | | [address] | | | | + + + + + + + + | Specimen | + + | | + + + + + + + | Performing | Address | City/State/Zipcode | Phone Number | | Organization | | | | + + + + + | [facility] | [address] | [place] [address] | [phone] | + + + + + POC Glucose (08/27/2019 8:01 AM PST) + + + + + + | Component | Value | Ref Range | Performed | Pathologist | | | | | At | Signature | + + + + + + | Glucose, | 85Comment: Testing | 65 - 99 mg/dL | [facility] | | | POC | performed at [facility];[address] | | LABORATORY | | | | [address];[place] | | | | | | [address] | | | | + + + + + + + + | Specimen | + + | | + + + + + + + | Performing | Address | City/State/Zipcode | Phone Number | | Organization | | | | + + + + + | [facility] | [address] | [place] [address] | [phone] | + + + + + Phosphorus (08/27/2019 5:10 AM PST) + + + + + + | Component | Value | Ref Range | Performed | Pathologist | | | | | At | Signature | + + + + + + | Phosphorus | 3.8Comment: Testing | 2.3 - 4.8 mg/dL | [facility] | | | | performed at [facility], [address] | | LABORATORY | | | | [address], | | | | | | [place] [address] | | | | + + + + + + + + | Specimen | + + | Blood | + + + + + + + | Performing | Address | City/State/Zipcode | Phone Number | | Organization | | | | + + + + + | [facility] | [address] | [place] [address] | [phone] | + + + + + Magnesium (08/27/2019 5:10 AM PST) + + + + + + | Component | Value | Ref Range | Performed | Pathologist | | | | | At | Signature | + + + + + + | Magnesium | 2.2Comment: Testing | 1.7 - 2.4 mg/dL | [facility] | | | | performed at [facility], [address] | | LABORATORY | | | | [address], | | | | | | [place] [address] | | | | + + + + + + + + | Specimen | + + | Blood | + + + + + + + | Performing | Address | City/State/Zipcode | Phone Number | | Organization | | | | + + + + + | [facility] | [address] | [place] [address] | [phone] | + + + + + Basic [...] >60Comment: GFR <60: | >60 | [facility] | | | GFR | [...] | | | | | | MDRD IDND traceable | | | | | | equation.Testing | | | | | | performed at [facility], [address] | | | | | | [facility], | | | | | | [place] [address] | | | | + + + + + + + + | Specimen | + + | Blood | + + + + + + + | Performing | Address | City/State/Zipcode | Phone Number | | Organization | | | | + + + + + | [facility] | [address] | [place] [address] | [phone] | + + + + + CBC [...] at | | | | | | [facility], [address] [facility] | | | | | | [place] | | | | | | [address] | | | | + + + + + + + + | Specimen | + + | Blood | + + + + + + + | Performing | Address | City/State/Zipcode | Phone Number | | Organization | | | | + + + + + | [facility] | [address] | [place] [address] | [phone] | + + + + + POC Glucose (08/27/2019 4:06 AM PST) + + + + + + | Component | Value | Ref Range | Performed | Pathologist | | | | | At | Signature | + + + + + + | Glucose, | 81Comment: Testing | 65 - 99 mg/dL | [facility] | | | POC | performed at [facility];[address] | | LABORATORY | | | | [address];[place], [place] | | | | | | [address] | | | | + + + + + + + + | Specimen | + + | | + + + + + + + | Performing | Address | City/State/Zipcode | Phone Number | | Organization | | | | + + + + + | [facility] | [address] | [place] [address] | [phone] | + + + + + POC Glucose (08/26/2019 9:14 PM PST) + + + + + + | Component | Value | Ref Range | Performed | Pathologist | | | | | At | Signature | + + + + + + | Glucose, | 101 (H)Comment: Testing | 65 - 99 mg/dL | [facility] | | | POC | performed at [facility];[address] | | LABORATORY | | | | [address];[place], [place] | | | | | | [address] | | | | + + + + + + + + | Specimen | + + | | + + + + + + + | Performing | Address | City/State/Zipcode | Phone Number | | Organization | | | | + + + + + | [facility] | [address] | [place] [address] | [phone] | + + + + + Surgical [...] of the | | | rectum (see [id number]). As part of [facility]' Quality | | | Improvement Program, this [...] surfaceis barker-yellow and lobulated. | | | Battery Assembler Plastic sections are submitted in cassette (A1). B. [...] is barker-yellow and | | | lobulated. Battery Assembler Plastic sections are submitted incassette (B1). | | [...] component was performed | | | by [facility], [address] [place] [address] (Medical | | | Director: Yenny Young MD; CLIA# [id number]). Professional | | | interpretation was performed by[facility], [facility] | | | [address] [address] (Medical | | | Director: Kenyon Delacruz M.D.; CLIA#: [id number]). REASON FOR | | | ADDENDUM:Results of [...] | | | preparation) was performed at [facility]. | | | Interpretation was performed at [facility]. | | | Immunohistochemical studies and/or special stains were performed on | | | this case with the appropriate controls, which stain appropriately. | | | These tests were developed and their performance characteristics | | | determined by [facility] and/or [facility]. These tests | | | may have not been cleared or approved by the U.S. Food and Drug | | | Administration. The FDA has determined that suchclearance or | | | approval is not necessary. [facility] and [facility] are certified | | | under the [...] designed to | | | detect V600E ([id number]). Some non-V600E mutations, V600K, V600D, and | [...] | analysis test have been determined by [facility], [address] | | [address] [place], [place],but have not been cleared or approved [...] | | analysis tests were performed at [facility], [address] | | | [place] [address] (Chaser Apprentice: Gaudencio Lira MD; CLIA# | | | [id number]). REASON FOR ADDENDUM:This case is addended for the | | | addition of BRAF and KRAS Mutation Analysis results. ADDENDUM | | | PATHOLOGIC DIAGNOSIS:[id number], [id number] BIOPSY: Mutation DETECTED | | | - [...] colorectal cancer. J Clin Oncol 2008; 26(35): 2863-2877. doi: | | | 10.1200/JCO.2008.18.86533. Arnel IG, Alexis M, Boateng M, et al. | | | Wild-type KRAS is required for panitunumab efficacy in patients with | | | metastatic colorectal cancer. J Clin Oncol 2008; 26:1247-0369. | | | doi:10.1200/JCO.2007.14.22556. Gilda PATTON, Cheli MENDOZA, Ean A, et | | | al. Extended TAO mutations and anti-EGFR monoclonal antibody survival | | | benefit in metastatic colorectal cancer: a meta-analysis of | | | randomized, controlled trials.Annals of Oncol 2014; 26(1): 13-21. doi: | | | 10.1093/annon/lse232 4. Navi HERMOSILLO, Melissa RODRIGUEZ. KRAS | | | Mutation: Should We Test for It, and Does It Matter? J Clin Oncol | | | 2013; 31:4732-0516. doi: 10.1200/JCO.2012.43.0454 ADDENDUM CLINICAL | | | [...] | | paraffin tissue block B1, numbered [id number], belonging to patient | | | ARLENE ROJAS. Diagnostician: Nicanor Elias | | | DOPathologistDiagnostician: Kenyon Delacruz | | | MDPathologistDiagnostician: Prieto Brito MT([facility]) | | | MBPathologistDiagnostician: Demi Bearden [...] | | LABORATORY | | | | Blvd;[place] [address] | | | | + + + + + + + + | Specimen | + + | Blood | + + + + + + + | Performing | Address | City/State/Zipcode | Phone Number | | Organization | | | | + + + + + | [facility] | [address] | [place] [address] | [phone] | + + + + + Enriqueta [...] | | | | | performed at [facility] | | | | | | [address];[place], [place] | | | | | | [address] | | | | + + + + + + + + | Specimen | + + | Blood | + + + + + + + | Performing | Address | City/State/Zipcode | Phone Number | | Organization | | | | + + + + + | [facility] | [address] | [place] [address] | [phone] | + + + + + Ferritin (08/26/2019 4:25 AM PST) + + + + + + | Component | Value | Ref Range | Performed | Pathologist | | | | | At | Signature | + + + + + + | Ferritin | 144Comment: Testing | 11 - 450 ng/mL | [facility] | | | | performed at [facility], [address] | | LABORATORY | | | | [address], | | | | | | [place] [address] | | | | + + + + + + + + | Specimen | + + | Blood | + + + + + + + | Performing | Address | City/State/Zipcode | Phone Number | | Organization | | | | + + + + + | [facility] | [address] | [place] [address] | [phone] | + + + + + Iron [...] | | | | | [place] [address] | | | | + + + + + + + + | Specimen | + + | Blood | + + + + + + + | Performing | Address | City/State/Zipcode | Phone Number | | Organization | | | | + + + + + | [facility] | [address] | [place] [address] | [phone] | + + + + + CBC [...] [address], | | | | | | [place] [address] | | | | + + + + + + + + | Specimen | + + | Blood | + + + + + + + | Performing | Address | City/State/Zipcode | Phone Number | | Organization | | | | + + + + + | [facility] | [address] | [place] [address] | [phone] | + + + + + Basic [...] >60Comment: GFR <60: | >60 | [facility] | | | GFR | [...] | | | | | performed at [facility], [address] | | | | | | [facility], | | | | | | [place] [address] | | | | + + + + + + + + | Specimen | + + | Blood | + + + + + + + | Performing | Address | City/State/Zipcode | Phone Number | | Organization | | | | + + + + + | [facility] | [address] | [place] [address] | [phone] | + + + + + Urinalysis [...] - 1.030 | [facility] | | | [place], | | | LABORATORY | | | [...] | | LABORATORY | | | | [facility];[address] [place] [address] | | | | | | Blvd;[place] [address] | | | | + + + [...] + + + + + | [facility] | [address] | [place] [address] | [phone] | + + + + + Comprehensive [...] >60Comment: GFR <60: | >60 | [facility] | | | GFR | [...] | | | | | | MDRD [facility] traceable | | | | | | equation.Testing | | | | | | performed at [facility];[address] | | | | | | [facility];[place], [place] | | | | | | [id number] | | | | + + + + + + + + | Specimen | + + | Blood | + + + + + + + | Performing | Address | City/State/Zipcode | Phone Number | | Organization | | | | + + + + + | [facility] | [address] | [place] [address] | [phone] | + + + + + CBC [...] | | | Absolute | performed at [facility];[address] | [address] | LABORATORY | | | | [address];[place] | | | | | | [id number] | | | | + + + + + + + + | Specimen | + + | Blood | + + + + + + + | Performing | Address | City/State/Zipcode | Phone Number | | Organization | | | | + + + + + | [facility] | [address] | [place] [address] | [phone] | + + + + + documented [...] | | | | | | longer, [id number] use of | | | | | [...]
[~2019-10-15 00:56] MED LIST changes: +FENTANYL1 EACH TOP; +FLUOROURAC1 GM/20 ML; +LEUCOVORIN; +LOVENOX60 MG SUB-Q; +OXALIPLATIN50 MG
--- OUTSIDE RECORDS SUMMARY | 2019-10-15 00:58 | XMS ---
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 E.D. VISIT COUNT (12 MO.) 1 [facility] 6 [facility] [place] TOTAL 7 NOTE: Visits indicate total known visits. ED/UCC VISIT TRACKING (12 MO.) 10/15/2019 00:56 [facility] [place] TYPE: Emergency COMPLAINT: - SOB 10/12/2019 19:14 [facility] [place] TYPE: Emergency COMPLAINT: - SOB 09/24/2019 16:13 [facility] [place] TYPE: Emergency COMPLAINT: - ABD PAIN DIAGNOSES: - Allergy status to penicillin - Hyperlipidemia, unspecified - Allergy status to oth drug/meds/biol subst status - Unspecified abdominal pain - Essential (primary) hypertension - Other long-term (current) drug therapy - Personal history of nicotine dependence 09/07/2019 10:51 [facility] [place] TYPE: Emergency COMPLAINT: - POST OP PROBLEM, ABD SWELLING 09/03/2019 18:23 [facility] [place] TYPE: Emergency COMPLAINT: - POST OP PROBLEM DIAGNOSES: - Hyperlipidemia, unspecified - 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 - Allergy status to oth drug/meds/biol subst status - Cellulitis of abdominal wall - Other long-term (current) drug therapy - Essential (primary) hypertension - Allergy status to penicillin - Infection following a procedure, unspecified, init 08/25/2019 16:36 [facility] TYPE: Emergency DIAGNOSES: - Neoplasm of unspecified behavior of digestive system - Stenosis of anus and rectum - Rectal Problems 08/23/2019 09:45 [facility] [place] TYPE: Emergency COMPLAINT: - ABD PAIN INPATIENT VISIT TRACKING (12 MO.) 10/12/2019 19:15 G[facility] Martinez TYPE: Observation COMPLAINT: - PE 08/25/2019 16:36 [facility] TYPE: Colorectal Surgery DIAGNOSES: - [...] unspecified behavior of digestive system - Other long-term (current) drug therapy - Unspecified abdominal pain - Other hemorrhoids - Hyperlipidemia, unspecified - Athscl heart disease of [place] coronary artery w/o ang pctrs - Unspecified hearing loss, unspecified ear - Malignant neoplasm of rectum - 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
--- NOTE | 2019-10-15 12:51 | EKG ---
[facility] [address] [facility] [place] [address] Signed Sinus tachycardia with short ME Low voltage QRS Septal infarct , old Abnormal ECG When compared with ECG of 12-OCT-2019 19:21, Nonspecific T wave abnormality no longer evident in Inferior leads Nonspecific T wave abnormality, worse in Lateral leads Confirmed by JOY MENCHACA MD ([id number]) on 10/15/2019 12:51:08 PM Electronically Signed By: JOY MENCHACA MD 10/15/19 1251 PATIENT NAME: ARLENE ROJAS B[place] Electrocardiogram DATE OF : 38 PHYSICIAN: JOY MENCHACA MD REPORT #: [id number] REPORT IS CONFIDENTIAL AND NOT TO BE RELEASED WITHOUT AUTHORIZATION
== END 2019-10-15 04:41 | disposition short-term general hospital (02) ==
LOC: ED 00:56
DX: I26.99 Other pulmonary embolism without acute cor pulmonale (principal); J90 Pleural effusion, not elsewhere classified; C18.9 Malignant neoplasm of colon, unspecified; I10 Essential (primary) hypertension; E78.5 Hyperlipidemia, unspecified; Z87.891 Personal history of nicotine dependence; Z88.0 Allergy status to penicillin; Z88.7 Allergy status to serum and vaccine; Z79.899 Other long term (current) drug therapy; Z79.891 Long term (current) use of opiate analgesic
CPT/HCPCS: 71046; 80053; 83880; 84484; 85025; 85610; 85730; 93005; 93010; 99285-25

== ENCOUNTER 2019-11-23 09:46 | Inpatient (IN) | payer MEDICARE, OTHER ==
[~2019-11-23] VITALS: Ht 170.2 cm; Wt 58.6 kg
[~2019-11-23 09:46] MED LIST changes: +FENTANYL1 EACH TD; +MELATONIN10 M5 PO; +MULTIVITAMINS1 EAC7 PO; +ONDANSETRON ODT8 MG PO
--- OUTSIDE RECORDS SUMMARY | 2019-11-23 09:48 | XMS ---
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 Care History Medical/Surgical 10/16/2019 [facility] \T\middot;\T\nbsp; PATIENT- [facility] ELIGIBLE \T\middot;\T\nbsp; PLEASE REFER PATIENT TO [facility] FOR NON EMERGENT MEDICAL NEEDS. \T\middot;\ T\nbsp; [facility] CAN SEE PATIENTS SAME DAY FOR APTS IF PATIENT CALLS FIRST THING IN THE MORNING. Larry VISIT COUNT (12 MO.) 1 [facility] 7 [facility] [place] TOTAL 8 NOTE: Visits indicate total known visits. 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 - Hyperlipidemia, unspecified 10/12/2019 19:14 [facility] [place] TYPE: Emergency COMPLAINT: - SOB 09/24/2019 16:13 [facility] [place] TYPE: Emergency COMPLAINT: - ABD PAIN DIAGNOSES: - Allergy status to penicillin - Hyperlipidemia, unspecified - Allergy status to oth drug/meds/biol subst status - Unspecified abdominal pain - Essential (primary) hypertension - Other cake batter 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 (current) 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 therapy - Personal history of nicotine dependence 09/07/2019 10:51 [facility] [place] TYPE: Emergency COMPLAINT: - POST OP PROBLEM, ABD SWELLING 09/03/2019 18:23 [facility] [place] TYPE: Emergency COMPLAINT: - POST OP PROBLEM DIAGNOSES: - Hyperlipidemia, unspecified - cannon pinion adjuster (current) use of aspirin - Allergy status to oth drug/meds/biol subst status - Cellulitis of abdominal wall - Other cake batter mixer (current) drug therapy - Essential (primary) hypertension - Allergy status to penicillin - Infection following a procedure, unspecified, init [facility]2019 [facility] TYPE: Emergency DIAGNOSES: - Neoplasm of unspecified behavior of digestive system - Stenosis of anus and rectum - Rectal Problems 08/23/2019 09:45 [facility] [place] TYPE: Emergency COMPLAINT: - ABD PAIN INPATIENT VISIT TRACKING (12 MO.) [facility] TYPE: Internal Medicine DIAGNOSES: - Other pulmonary embolism without acute cor pulmonale - Hypoxemia - Disorder involving the immune mechanism, unspecified - pleural effusion - Neoplasm related pain (acute) (chronic) - alf (current) use of anticoagulants - Encounter for palliative care - Shortness of breath - Dysphagia, unspecified - Unspecified severe protein-calorie malnutrition - Malignant neoplasm of rectosigmoid junction - Pleural effusion, not elsewhere classified 10/12/2019 19:15 [facility] [place] TYPE: Observation COMPLAINT: - PE DIAGNOSES: - Other cake batter mixer (current) drug therapy - Malignant neoplasm of rectum - Unspecified hearing loss, unspecified ear - Essential (primary) hypertension - Allergy status to penicillin - Colostomy status - Shortness of breath - Hyperlipidemia, unspecified - Personal history of nicotine dependence - Other pulmonary embolism without acute cor pulmonale - alf (current) use of opiate analgesic - Personal history of antineoplastic chemotherapy - Allergy status to oth drug/meds/biol subst status 08/25/2019 16:36 [facility] DIAGNOSES: - Neoplasm of [...] unspecified behavior of digestive system - Other shelter (current) drug therapy - Unspecified abdominal pain - Other hemorrhoids - Hyperlipidemia, unspecified - Athscl heart disease of [place] coronary artery w/o ang pctrs - Unspecified hearing loss, unspecified ear - Malignant neoplasm of rectum - cannon pinion adjuster (current) use of aspirin - 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
--- NOTE | 2019-11-23 13:02 | NUR ---
PATIENT ARRIVED TO [facility], TRANSFERRED TO BED FROM [facility] WITH FULL STAFF LIFT.
--- NOTE | 2019-11-23 13:10 | NUR ---
PT ARRIVED FROM ER. PT TRANSFERED TO BED. ASSESSMENT DONE. NEW IV STARTEDPER PROTOCOL, BRISK BLOOD RETURN NOTED. MEDICATIONS GIVEN. FAMILY AT BEDSIDE. CALL LIGHT WITHIN REACH. CLEAR LIQUID TRAY ORDERED.
--- NOTE | 2019-11-23 14:31 | NUR ---
THIS RN TO ROOM TO CHECK ON PT. PT RESTING WITH EYES CLOSED. RESPIRATIONS EVEN AND UNLABORED AT THIS TIME. IV FLUDIS STARTED, LR INFUSING WITH MAGNESIUM THROUGH LEFT AC IV AT THIS TIME. POTASSIUM INFUSING THROUGH LEFT FORARM IV AT THIS TIME. PORT CONTINUES WITH 5-FU INFUSION ALONE. PT ALLOWED TO REST. NO REQUESTS OR COMPLAINTS AT THIS TIME. CALL LIGHT WITHIN REACH. FAMILY AT BEDSIDE.
--- NOTE | 2019-11-23 16:19 | NUR ---
Cm assessment completed. Pt is unable to hear and points at granddaughters. Information obtained from Chris. Pt lives at home with 3 of his adult children and two granddaughters. They all provide care. He uses a wc and walker. He is able to feed himself with meal prep. Girls deny needs for further equipment in the home. Plan on taking pt home when he is ready for dc.
--- NOTE | 2019-11-23 16:58 | NUR ---
AFTERNOON ASSESSMENT AND MEDICATION DUE. PT RESTING IN BED, FAMILY VISITING. PT HAS OCCATIONAL COUGHING FITS, VERY WEAK COUGH. WITH TIME PT PRODUCES CLEAR SPUTUM WHICH HE SPITS OUT. SUCTION PROVIDED FOR PT. PT REPORTS 3/10 PAIN AND DENIES NEED FOR ADDITIONAL PAIN MEDICATION. ASSESSMENT DONE. PT REPORTS "MY FINGERS HAVE FILLED OUT." EXPLAINING THAT HE FEELS MORE HYDRATED AND NO LONGER HAS WRINKELS IN HIS HANDS. PT NOW DENIES TINGLING AND NUMBNESS IN HANDS AND ARMS AND STATES "BEFORE IT WAS TINGLING HERE AND NOW IT'S NOT." EDUCATION DONE WITH PT REGARDING POTASSIUM LEVEL AND S/S OF LOW POTASSIUM. PT AND FAMILY VERBALIZE UNDERSTANDING OF EDUCATION. PT CONTINUES TO REPORT TINGLING IN LEGS. WEAKENESS CONTINUES. BOWEL TONES HYPOACTIVE. COLOSTOMY COLLECTING GREEN LIQUID DRAINAGE. FULL LIQUID TRAY ODERED FOR PT PER PTS PREFERENCE. NO ADDITIONAL REQUESTS OR COMPLAINTS. FAMILY AT BEDSIDE. CALL LIGHT WITHIN REACH.
--- NOTE | 2019-11-23 17:52 | NUR ---
NEW ADMISSION THIS SHIFT FOR HYPOKALEMIA. IV INFUSIONS OF POTASSIUM AND MAGNESIUM WELL ORAL POTASSIUM GIVEN. TELE #6 READING SINUS TACHYCARDIA WITH OCCATIONAL PVCs. PT REPORTS TINGLING IN ARMS IS BEGINGING TO IMPROVE. USES BEDSIDE URINAL, DARK YELLOW URINE NOTED THIS SHIFT. COLOSTOMY BAG IN PLACE, DRAINING GREEN LIQUID STOOL. 5-FU CHEMOTHERAPY PUMP INFUSING THROUGH PORT-A-CATH (TO BE REMOVED TOMORROW), CYTOTOXIC PRECAUTIONS IN PLACE. VERY WEAK COUGH REFLEX, SUCTION PROVIDED. PT DOES NOT USE CALL LIGHT. FAMILIY AT BEDSIDE.
--- NOTE | 2019-11-23 18:23 | NUR ---
PT CALL LIGHT ON. PUMP ALARMING, POTASSIUM INFUSION COMPLETE. IV FLUIDS MOVED TO LEFT FORARM IV. LEFT AC IV SALINE LOCKED, ALCOHOL CAPS APPLIED. PT RESTING WITH EYES CLOSED, RESPIRATORY RATE = 20 BPM. NO ADDITIONAL REQUESTS OR COMPLAINTS. CALL LIGHT WITHIN REACH. FAMIY AT BEDSIDE.
--- NOTE | 2019-11-23 19:02 | NUR ---
RECEIVED REPORT FROM JAIME PIKE. pt RESTING IN BED. FAMILY AT BEDSIDE. NO REQUESTS AT THIS TIME. CALL LIGHT WITHIN REACH. WHITEBOARD UPDATED.
--- NOTE | 2019-11-23 21:29 | NUR ---
IN TO DO ASSESSMENT AND GIVE MEDS. pt RESTING IN BED. REPORTED 9/10 PAIN, REQUESTED ONE PRN PAIN PILL, GIVEN WITH SCHEDULED MEDS (SEE MAR). GRANDDAUGHTERS AT BEDSIDE. ASSESSMENT DONE. CHEMO PUMP CONNECTED TO PORT. IVF INFUSING. OSTOMY EMPTIED, LIGHT BROWN LIQUID. BP BELOW 100 SYSTOLIC SIMILAR TO PRIOR BLOOD PRESSURES. NO REQUESTS AT THIS TIME. CALL LIGHT WITHIN REACH. SUCTION AT BEDSIDE FOR SECRETIONS.
--- NOTE | 2019-11-23 22:48 | NUR ---
pt RESTING WITH EYES CLOSED, SNORING. RESPIRATIONS REGULAR AND UNLABORED. FAMILY AT BEDSIDE. NEW IVF HUNG. CALL LIGHT WITHIN REACH.
--- NOTE | 2019-11-24 00:45 | NUR ---
ROUNDED ON pt. RESTING IN BED. FAMILY AT BEDSIDE. CALL LIGHT WITHIN REACH.
--- NOTE | 2019-11-24 01:40 | NUR ---
VITALS DONE. NO RECENT OUTPUT. pt REFUSED TO GET UP AT THIS TIME. TELE HAS HR AT 82, WITH PVCS. PRODUCTIVE COUGH, USING SUCTION TO CLEAR MOUTH. DENIES NUMBNESS AND TINGLING AT THIS TIME. ASSESSMENT DONE. FAMILY AT BEDSIDE. CALL LIGHT WITHIN REACH. PRN PAIN MED FOR 8/10 PAIN.
--- NOTE | 2019-11-24 03:49 | NUR ---
ROUNDED ON pt. RESTING WITH EYES CLOSED, RESPIRATIONS REGULAR. FAMILY AT BEDSIDE. CALL LIGHT WITHIN REACH.
--- NOTE | 2019-11-24 06:11 | NUR ---
VITALS AND I&O RECORDED. NO REQUESTS AT THIS TIME. NEW BAG OF IVF HUNG. FAMILY AT BEDSIDE. CALL LIGHT WITHIN REACH.
--- NOTE | 2019-11-24 06:37 | NUR ---
pt RESTED ON AND OFF. DENIED NUMBNESS AND TINGLING AT SECOND ASSESSMENT. TELE 6 IRREGULAR WITH PVCS. LOW URINE OUTPUT, MD AWARE. OSTOMY. ON CYTOTOXIC PRECAUTIONS, CHEMO CURRENTLY INFUSING, WILL COMPLETE THIS AFTERNOON. CANCER CLINIC STAFF TO DISCONNECT. MUST SIT UP STRAIGHT TO SWALLOW WELL. PRN PAIN MEDS X2. FAMILY AT BEDSIDE THROUGHOUT SHIFT. IVF INFUSING. USES CALL LIGHT APPROPRIATLEY.
--- NOTE | 2019-11-24 06:37 | NUR ---
UPDATED MD ON LOW URINE OUTPUT. NO NEW ORDERS AT THIS TIME.
--- NOTE | 2019-11-24 07:11 | EKG ---
[facility] [address] [facility] [place] [address] Signed Normal sinus rhythm with sinus arrhythmia Low voltage QRS Nonspecific T wave abnormality Prolonged QT Abnormal ECG When compared with ECG of 15-OCT-2019 01:06, Nonspecific T wave abnormality no longer evident in Lateral leads Confirmed by MOISES CAMARA MD ([id number]) on 11/24/2019 7:11:37 AM Electronically Signed By: MOISES CAMARA MD 11/24/19 0711 PATIENT NAME: ARLENE ROJAS BERNADETTE Electrocardiogram DATE OF : 38 PHYSICIAN: MOISES CAMARA MD REPORT #: [id number] REPORT IS CONFIDENTIAL AND NOT TO BE RELEASED WITHOUT AUTHORIZATION
--- NOTE | 2019-11-24 07:43 | NUR ---
PT IS AWAKE, LAB HERE TO REDRAW LABS ORDERED, DAUGHTER IN ROOM DENIES ANY NEEDS AT THIS TIME.
--- NOTE | 2019-11-24 09:00 | NUR ---
PT IS ALERT, SITTING UP IN BED, DRINKING MOUNTAIN DEW SODA, DENIES NEED FOR PAIN MEDICATION THIS AM, DAUGHTER SITTING IN RECLINER AT BEDSIDE AND FEELS HE IS MUCH STRONGER TODAY. PORT IS ACCESS FOR CHEMO INFUSION, TAPED SECURELY. CALL LIGHT IN EASY REACH. DENIES ANY NEEDS AT THIS TIME.
--- NOTE | 2019-11-24 11:30 | NUR ---
PHYSICAL THERAPY IN ROOM AND WORKED WITH PT, STOOD AT BEDSIDE AND SAT ON BSC, PT IS WEAK AND TODD, TWO PERSON ASSIST, DAUGHTERS REMAIN IN ROOM, VERY SUPPORTIVE. CALL LIGHT IN EASY REACH. CONT. TO DENY HE NEEDS PAIN MEDICATION.
--- NOTE | 2019-11-24 13:57 | NUR ---
CALL PLACED TO CANCER CLINIC CHEMO INFUSION COMPLETED. PT IS ALERT, IN GOOD SPIRITS, WATCHING TV, DAUGHTERS IN ROOM, DENIES ANY NEEDS.
--- NOTE | 2019-11-24 14:08 | NUR ---
5-FU PUMP ALARMING, INFUSION COMPLETE, 0ML REMAINING. THIS RN TO ROOM. PUMP STOPPED, TURNED OFF AND DETACHED PER PROTOCOL. PORT ASSESSED, WNL, BRISK BLOOD RETURN NOTED. PORT FLUSHED AND HEPARIN LOCKED PER PROTOCOL. PORT DEACCESSED PER PROTOCOL. IV FLUID BAG COMPLETE. NEW BAG HUNG (SEE MAR). PT WATCHING TV. NO ADDITIONAL REQUESTS OR COMPLAINTS AT THIS TIME. CALL LIGHT WITHIN REACH. FAMILY AT BEDSIDE.
--- NOTE | 2019-11-24 14:15 | NUR ---
PORT DEACCESSED BY PITA, PT REMAINS IN GOOD SPIRITS, DENIES ANY NUMBNESS OR TINGLING, K-3.2 THIS AM. CONT. DRINKING MOUNTAIN DEW SODA BUT NOT MUCH APPETITE. COLOSTOMY WITH LIGHT BROWN LIQUID STOOL. DENIES NAUSEA, OCCASIONAL LOOSE PROD COUGH. DENIES ANY NEEDS. CALL LIGHT IN EASY REACH.
--- NOTE | 2019-11-24 17:08 | NUR ---
DISCHARGE INSTRUCTIONS REVIEWED WITH PATIENT AND DAUGHTERS, VERBALIZES UNDERSTANDING OF INSTRUCTIONS AND FOLLOWUP APPOINTMENT SCHEDULED. DENIES ANY QUESTIONS OR CONCERNS, PLEASED WITH CARE.
== END 2019-11-24 17:09 | disposition home or self-care (01) | DRG 640 ==
LOC: ED 09:46 → MS 12:23
PROVIDERS: ADMIT Student in an Organized Health Care Education/Training Program
DX: E87.6 Hypokalemia (principal); I26.99 Other pulmonary embolism without acute cor pulmonale; E43 Unspecified severe protein-calorie malnutrition; C20 Malignant neoplasm of rectum; C79.9 Secondary malignant neoplasm of unspecified site; J90 Pleural effusion, not elsewhere classified; E83.42 Hypomagnesemia; R11.2 Nausea with vomiting, unspecified; T45.1X5A Adverse effect of antineoplastic and immunosuppressive drugs, initial encounter; E78.5 Hyperlipidemia, unspecified; Z88.0 Allergy status to penicillin; Z79.899 Other long term (current) drug therapy; Z79.891 Long term (current) use of opiate analgesic; Z68.20 Body mass index [BMI] 20.0-20.9, adult
CPT/HCPCS: 36415; 71045; 80048; 80053; 83735; 84100; 84132; 85025; 93005; 93010; 96365; 96366; 97163; 97166; 99285-25; J1650; J3475; J3480; J7030; J7060; J7121

== ENCOUNTER 2019-12-13 14:19 | Emergency (ER) | payer MEDICARE, OTHER ==
[~2019-12-13] VITALS: Ht 170.2 cm; Wt 52.6 kg
--- OUTSIDE RECORDS SUMMARY | 2019-12-13 14:22 | XMS ---
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 Care History Medical/Surgical 10/16/2019 [facility] \T\middot;\T\nbsp; PATIENT- [facility] ELIGIBLE \T\middot;\T\nbsp; PLEASE REFER PATIENT TO [facility] FOR NON EMERGENT MEDICAL NEEDS. \T\middot;\ T\nbsp; [facility] CAN SEE PATIENTS SAME DAY FOR APTS IF PATIENT CALLS FIRST THING IN THE MORNING. E.[place]ishi. VISIT COUNT (12 MO.) 1 [facility] 8 [facility]. TOTAL 9 NOTE: Visits indicate total known visits. ED/UCC VISIT TRACKING (12 MO.) 12/13/2019 14:19 [facility] [place] TYPE: Emergency COMPLAINT: - CHEST PAIN 11/23/2019 09:46 [facility] [place] COMPLAINT: - NUMBNESS HANDS AND LEGS 10/15/2019 00:56 [facility] [place] [place] TYPE: Emergency COMPLAINT: - SOB DIAGNOSES: - Allergy status to serum and vaccine status - Malignant neoplasm of colon, unspecified - Personal history of nicotine dependence - Other pulmonary embolism without acute cor pulmonale - Shortness of breath - Essential (primary) hypertension - Pleural effusion, not elsewhere classified - Other director long term care (current) 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 therapy - Dyspnea, unspecified - Allergy status to penicillin - rn long term care (current) use of opiate analgesic - Hyperlipidemia, unspecified 10/12/2019 19:14 [facility] [place] TYPE: Emergency COMPLAINT: - SOB 09/24/2019 16:13 [facility] [place] TYPE: Emergency COMPLAINT: - ABD PAIN DIAGNOSES: - Allergy status to penicillin - Hyperlipidemia, unspecified - Allergy status to oth drug/meds/biol subst status - Unspecified abdominal pain - Essential (primary) hypertension - Other usp (current) drug therapy - Personal history of nicotine dependence 09/07/2019 10:51 [facility] TYPE: Emergency COMPLAINT: - POST OP PROBLEM, ABD SWELLING 09/03/2019 18:23 [facility] [place] TYPE: Emergency COMPLAINT: - POST OP PROBLEM DIAGNOSES: - Hyperlipidemia, unspecified - jail (current) use of aspirin - Allergy status to oth drug/meds/biol subst status - Cellulitis of abdominal wall - Other usp (current) drug therapy - Essential (primary) hypertension - Allergy status to penicillin - Infection following a procedure, unspecified, init 08/25/2019 16:36 [facility] TYPE: Emergency DIAGNOSES: - Neoplasm of unspecified behavior of digestive system - Stenosis of anus and rectum - Rectal Problems 08/23/2019 09:45 GERRI [facility] TYPE: Emergency COMPLAINT: - ABD PAIN INPATIENT VISIT TRACKING (12 MO.) 11/23/2019 12:23 [facility] [place] TYPE: Medical Surgical COMPLAINT: - HYPOKALEMIA DIAGNOSES: - Malignant neoplasm of rectum - Hyperlipidemia, unspecified - Nausea with vomiting, unspecified - Other pulmonary embolism without acute cor pulmonale - Adverse effect of antineoplastic and immunosup drugs, init - Hypokalemia - Unspecified severe protein-calorie malnutrition - Hypomagnesemia - Secondary malignant neoplasm of unspecified site - jail (current) use of opiate analgesic - Other director long term care (current) drug therapy - Body mass index (BMI) 20.0-20.9, adult - Pleural effusion, not elsewhere classified - Allergy status to penicillin 10/15/2019 05:48 [facility] TYPE: Internal Medicine DIAGNOSES: - Other pulmonary embolism without acute cor pulmonale - Hypoxemia - Disorder involving the immune mechanism, unspecified - pleural effusion - Neoplasm related pain (acute) (chronic) - jail (current) use of anticoagulants - Encounter for palliative care - Shortness of breath - Dysphagia, unspecified - Unspecified severe protein-calorie malnutrition - Malignant neoplasm of rectosigmoid junction - Pleural effusion, not elsewhere classified 10/12/2019 19:15 [facility] TYPE: Observation COMPLAINT: - PE DIAGNOSES: - Other director long term care (current) drug therapy - Malignant neoplasm of rectum - Unspecified hearing loss, unspecified ear - Essential (primary) hypertension - Allergy status to penicillin - Colostomy status - Shortness of breath - Hyperlipidemia, unspecified - Personal history of nicotine dependence - Other pulmonary embolism without acute cor pulmonale - jail (current) use of opiate analgesic - Personal history of antineoplastic chemotherapy - Allergy status to oth drug/meds/biol subst status 08/25/2019 16:36 [facility] TYPE: Colorectal Surgery DIAGNOSES: - Neoplasm [...] unspecified behavior of digestive system - Other director long term care (current) drug therapy - Unspecified abdominal pain - Other hemorrhoids - Hyperlipidemia, unspecified - Athscl heart disease of [place] coronary artery w/o ang pctrs - Unspecified hearing loss, unspecified ear - Malignant neoplasm of rectum - jail (current) use of aspirin - 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
--- NOTE | 2019-12-13 17:13 | EKG ---
[facility] [address] [facility] [place] [address] Signed Sinus rhythm with short KS Low voltage QRS Borderline ECG When compared with ECG of 23-NOV-2019 15:29, Nonspecific T wave abnormality, improved in Anterior leads Confirmed by JOY MENCHACA MD ([id number]) on 12/13/2019 5:13:03 PM Electronically Signed By: JOY MENCHACA MD 12/13/19 1713 PATIENT NAME: CRYSTALARLENE Electrocardiogram DATE OF : 38 PHYSICIAN: JOY MENCHACA MD REPORT #: [id number] REPORT IS CONFIDENTIAL AND NOT TO BE RELEASED WITHOUT AUTHORIZATION
== END 2019-12-13 19:00 | disposition home or self-care (01) ==
LOC: ED 14:19
DX: R07.89 Other chest pain (principal); I10 Essential (primary) hypertension; E78.5 Hyperlipidemia, unspecified; J44.9 Chronic obstructive pulmonary disease, unspecified; Z85.038 Personal history of other malignant neoplasm of large intestine; Z85.118 Personal history of other malignant neoplasm of bronchus and lung; Z87.891 Personal history of nicotine dependence; Z88.0 Allergy status to penicillin; Z88.8 Allergy status to other drugs, medicaments and biological substances; Z79.899 Other long term (current) drug therapy; Z79.891 Long term (current) use of opiate analgesic
CPT/HCPCS: 36415; 71045; 80053; 84484; 85025; 93005; 93010; 99285-25

== ENCOUNTER 2019-12-25 03:00 | Emergency (ER) | payer MEDICARE, OTHER ==
[~2019-12-25] VITALS: Ht 170.2 cm; Wt 42.2 kg
[~2019-12-25 03:00] MED LIST changes: +K-TAB ER20 MEQ PO
--- OUTSIDE RECORDS SUMMARY | 2019-12-25 03:04 | XMS ---
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 Care History Medical/Surgical 10/16/2019 [facility] \T\middot;\T\nbsp; PATIENT- [facility] ELIGIBLE \T\middot;\T\nbsp; PLEASE REFER PATIENT TO [facility] FOR NON EMERGENT MEDICAL NEEDS. \T\middot;\ T\nbsp; [facility] CAN SEE PATIENTS SAME DAY FOR APTS IF PATIENT CALLS FIRST THING IN THE MORNING. E.Nishi. VISIT COUNT (12 MO.) 1 [facility] 9 [facility]. TOTAL 10 NOTE: Visits indicate total known visits. ED/UCC VISIT TRACKING (12 MO.) 12/25/2019 03:00 [facility] TYPE: Emergency COMPLAINT: - SOB 12/13/2019 14:19 [facility] TYPE: Emergency COMPLAINT: - CHEST PAIN DIAGNOSES: - Chest pain, unspecified - Chronic obstructive pulmonary disease, unspecified - Personal history of nicotine dependence - Hyperlipidemia, unspecified - Allergy status to penicillin - [facility] (current) use of opiate analgesic - Essential (primary) hypertension - Personal history of other malignant neoplasm of large intesti - Other chest pain - Personal history of other malignant neoplasm of bronchus and - 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 - Allergy status to other drugs, medicaments and biological sub 11/23/2019 09:46 [facility] TYPE: Emergency [...] Pleural effusion, not elsewhere classified - Other halfway (current) drug therapy - Dyspnea, unspecified - Allergy status to penicillin - [facility] (current) use of opiate analgesic - Hyperlipidemia, unspecified 10/12/2019 19:14 [facility] TYPE: Emergency COMPLAINT: - SOB 09/24/2019 16:13 [facility] TYPE: Emergency COMPLAINT: - ABD PAIN DIAGNOSES: - Allergy status to penicillin - Hyperlipidemia, unspecified - Allergy status to other drugs, medicaments and biological sub - Unspecified abdominal pain - Essential (primary) hypertension - Other halfway (current) drug therapy - Personal history of nicotine dependence 09/07/2019 10:51 [facility] TYPE: Emergency COMPLAINT: - POST OP PROBLEM, ABD SWELLING 09/03/2019 18:23 [facility] TYPE: Emergency COMPLAINT: - POST OP PROBLEM DIAGNOSES: - Hyperlipidemia, unspecified - vermin exterminator (current) use of aspirin - Allergy status to other drugs, medicaments and biological sub - Cellulitis of abdominal wall - Other halfway (current) drug therapy - Essential (primary) hypertension - Allergy status to penicillin - Infection following a procedure, unspecified, init 08/25/2019 16:36 [facility] TYPE: Emergency DIAGNOSES: - Neoplasm of unspecified [...] pulmonale - Adverse effect of antineoplastic and immunosuppressive drugs, - Hypokalemia - Unspecified severe protein-calorie malnutrition - Hypomagnesemia - Secondary malignant neoplasm of unspecified site - [facility] (current) use of opiate analgesic - 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 - Body mass index (BMI) 20.0-20.9, adult - Pleural effusion, not elsewhere classified - Allergy status to penicillin 10/15/2019 05:48 [facility] TYPE: Internal Medicine DIAGNOSES: - Other pulmonary embolism without acute cor pulmonale - Hypoxemia - Disorder involving the immune mechanism, unspecified - pleural effusion - Neoplasm related pain (acute) (chronic) - [facility] (current) use of anticoagulants - Encounter for palliative care - Shortness of breath - Dysphagia, unspecified - Unspecified severe protein-calorie malnutrition - Malignant neoplasm of rectosigmoid junction - Pleural effusion, not elsewhere classified 10/12/2019 19:15 [facility] TYPE: Observation COMPLAINT: - PE DIAGNOSES: - Other halfway (current) drug therapy - Malignant neoplasm of rectum - Unspecified hearing loss, unspecified ear - Essential (primary) hypertension - Allergy status to penicillin - Colostomy status - Shortness of breath - Hyperlipidemia, unspecified - Personal history of nicotine dependence - Other pulmonary embolism without acute cor pulmonale - [facility] (current) use of opiate analgesic - Personal history of antineoplastic chemotherapy - Allergy status to other drugs, medicaments and biological sub 08/25/2019 16:36 [facility] TYPE: Colorectal Surgery DIAGNOSES: - Neoplasm of unspecified behavior of digestive system - Anemia, unspecified - Stenosis of anus and rectum - Essential (primary) hypertension 08/23/2019 09:46 [facility] TYPE: Observation COMPLAINT: - COLON CANCER DIAGNOSES: - Essential (primary) hypertension - Nicotine dependence, cigarettes, uncomplicated - Allergy status to penicillin - Spondylosis without myelopathy or radiculopathy, lumbar regio - Neoplasm of unspecified behavior of digestive system - 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 - Unspecified abdominal pain - Other hemorrhoids - Hyperlipidemia, unspecified - Athscl heart disease of [place] coronary artery w/o ang pctrs - Unspecified hearing loss, unspecified ear - Malignant neoplasm of rectum - vermin exterminator (current) use of aspirin - 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
[2019-12-25] MEDS ORDERED: CLEOCIN HCL300 MG PO (13:24)
--- NOTE | 2019-12-25 22:27 | EKG ---
[facility] [address] [place] [address] Signed Sinus tachycardia with short CT with frequent premature ventricular complexes Low voltage QRS Nonspecific ST and T wave abnormality Abnormal ECG When compared with ECG of 13-DEC-2019 14:25, premature ventricular complexes are now present ST now depressed in Anterolateral leads Nonspecific T wave abnormality, worse in Lateral leads Confirmed by MOISES CAMARA MD ([id number]) on 12/25/2019 10:27:28 PM Electronically Signed By: MOISES CAMARA MD 12/25/19 2227 PATIENT NAME: ARLENE ROJAS Electrocardiogram DATE OF : 38 PHYSICIAN: MOISES CAMARA MD REPORT #: [id number] REPORT IS CONFIDENTIAL AND NOT TO BE RELEASED WITHOUT AUTHORIZATION
== END 2019-12-25 13:50 | disposition home or self-care (01) ==
LOC: ED 03:00
DX: R06.02 Shortness of breath (principal); R09.02 Hypoxemia; I10 Essential (primary) hypertension; E78.5 Hyperlipidemia, unspecified; J44.9 Chronic obstructive pulmonary disease, unspecified; Z87.891 Personal history of nicotine dependence
CPT/HCPCS: 71260; 80053; 83605; 83880; 84484; 85025; 93005; 93010; 94761; 96361; 99285-25; J3490; J7030